=== PATIENT | male | born 1955 | race Caucasian/White ===

== ENCOUNTER 2020-03-11 16:25 | Emergency (ER) | payer BC ==
[~2020-03-11] VITALS: Ht 188 cm; Wt 105.9 kg
--- NOTE | 2020-03-11 16:58 | ECGEPIP ---
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
[2020-03-11] MEDS ORDERED: ALBUTEROL 90 MCG/ACT 8GM HFA INHALER INH ONE (17:00)
--- NOTE | 2020-03-11 17:15 | REP ---
Portable chest x-ray: Two views. History: Dyspnea and cough. Findings: Bipolar pacemaker is seen in the right heart via the left side. Monitoring electrodes are seen. Mild cardiomegaly is observed. Pulmonary vasculature is not increased. No infiltrate is seen. Pleural angles are sharp. Impression: Mild cardiomegaly with pacemaker. Prior sternotomy. No infiltrate seen. Electronically Signed by Dorian Cuevas MD 03/11/2020 05:06 P
[2020-03-11 17:27] LABS: VENOUS BASE EXCESS -3.4 (-2.0-2.0); VENOUS HCO3 22.1 MEQ/L (23.0-27.0); VENOUS O2 SATURATION 58.1 % (60.0-80.0); VENOUS PARTIAL PRESSURE CO2 41.7 mmHg (38.0-50.0); VENOUS PARTIAL PRESSURE O2 30.3 mmHg (30.0-50.0); VENOUS PH 7.342 UNITS (7.330-7.430); VENOUS STANDARD HCO3 20.9 MEQ/L; VENOUS TOTAL CO2 23.4 MEQ/L (24.0-28.0)
[2020-03-11 17:33] LABS: BASO % 0.1 % (0.0-1.0); EOS # 0.1 10^3/uL (0.0-0.5); EOS % 0.3 % (0.0-3.0); HEMATOCRIT 29.1 % (42.0-52.0); HEMOGLOBIN 9.6 g/dl (13.5-17.5); LYMPH # 1.4 10^3/uL (1.5-5.0); LYMPH % 9.7 % (24.0-44.0); MEAN CORPUSCULAR HEMOGLOBIN 29.4 pg (27.0-33.0); MEAN CORPUSCULAR VOLUME 89.3 fl (80.0-96.0); MONO # 0.9 10^3/uL (0.0-0.8); MONO % 6.4 % (0.0-5.0); NEUTROPHILS # 12.1 10^3/uL (1.5-8.5); NEUTROPHILS % 82.8 % (36.0-66.0); PLATELET COUNT, AUTOMATED 135 10^3/uL (150-450); RED BLOOD COUNT 3.26 10^6/uL (4.30-6.10); WHITE BLOOD COUNT 14.6 10^3/uL (4.0-10.0)
[2020-03-11] MEDS ORDERED: CARV12.5 PO (17:38)
[2020-03-11] MEDS ORDERED: DIGO0.123 PO (17:38)
[2020-03-11] MEDS ORDERED: AMIO0.1T PO (17:38)
[2020-03-11] MEDS ORDERED: ELIQ5TAB PO (17:38)
[2020-03-11] MEDS ORDERED: ATOR80TA59 PO (17:38)
[2020-03-11] MEDS ORDERED: ZYLO300T6 PO (17:38)
[2020-03-11] MEDS ORDERED: GLYB5TA PO (17:38)
[2020-03-11] MEDS ORDERED: EZET10TA21 PO (17:38)
[2020-03-11] MEDS ORDERED: JANU100T PO (17:38)
[2020-03-11] MEDS ORDERED: LANTINJ4 SC (17:38)
[2020-03-11] MEDS ORDERED: PROT20TA11 PO (17:38)
[2020-03-11 18:00] LABS: ALBUMIN 3.1 GM/DL (3.2-5.2); BILIRUBIN,DIRECT 0.3 MG/DL (0.0-0.2); BILIRUBIN,TOTAL 1.2 MG/DL (0.2-1.0); CALCIUM LEVEL 7.6 MG/DL (8.8-10.2); CREATININE FOR GFR 2.03 MG/DL (0.70-1.30); GLOMERULAR FILTRATION RATE 35.2 (>49); POTASSIUM SERUM 3.3 MEQ/L (3.5-5.1); THYROID STIMULATING HORMONE 0.642 uIU/ML (0.358-3.740); TOTAL PROTEIN 6.5 GM/DL (6.4-8.2)
[2020-03-11] MEDS ORDERED: NS 500 ML IV ONE (18:00)
[2020-03-11] MEDS ORDERED: POTASSIUM CHLORIDE 10 MEQ SR TABLET PO ONE (18:15)
[2020-03-11 18:21] VITALS: O2SAT 99
[2020-03-11] MEDS ORDERED: PROV108A INH (18:24)
[2020-03-11 18:31] LABS: DIGOXIN LEVEL 1.2 NG/ML (0.5-2.0)
[2020-03-11 18:45] VITALS: BP 171/77
== END 2020-03-11 19:07 | disposition home or self-care (01) ==
LOC: M ED 16:25
DX: N18.9 Chronic kidney disease, unspecified (principal); D64.9 Anemia, unspecified; J06.9 Acute upper respiratory infection, unspecified; I45.89 Other specified conduction disorders; Z95.0 Presence of cardiac pacemaker; I25.2 Old myocardial infarction; E11.9 Type 2 diabetes mellitus without complications; I11.0 Hypertensive heart disease with heart failure; Z95.5 Presence of coronary angioplasty implant and graft; Z72.0 Tobacco use; Z82.49 Family history of ischemic heart disease and other diseases of the circulatory system; Z83.3 Family history of diabetes mellitus; Z79.4 Long term (current) use of insulin; Z79.899 Other long term (current) drug therapy

== ENCOUNTER 2021-08-22 12:30 | Outpatient (CLI) | payer BC ==
[~2021-08-22] VITALS: Ht 188 cm; Wt 106.0 kg
[~2021-08-22 12:30] MED LIST: ACETAMINOPHEN TAB 650MG DOSE (2X325MG) PO ONE; ALBUTEROL 90 MCG/ACT 8GM HFA INHALER INH PRN; ALBUTEROL SULFATE 2.5 MG/0.5 ML INH NEB SOLN INH PRN; AMIO0.1T PO; ATOR80TA59 PO; CARV12.5 PO; CASIRIVIMAB (REGN10933) 600 MG, IMDEVIMAB (REGN10987) 600 MG in NS 250 ML IV ONE; DIGO0.123 PO; ELIQ5TAB PO; EPINEPHrine INJ 1 MG/ML 1ML AMP IM PRN; EZET10TA21 PO; GLYB5TAB6 PO; JANU100T PO; LANTINJ4 SC; NS 1,000 ML IV SCH; PROT20TA11 PO; PROV108A INH; ZYLO300T6 PO; diphenhydrAMINE 25MG CAP PO ONE; diphenhydrAMINE 50MG/ML VIAL (J1200) IV PRN; methylPREDNISolone 125MG 2ML VIAL IV PRN
[2021-08-22 12:51] VITALS: BP 125/63
[2021-08-22 13:21] VITALS: BP 100/51
[2021-08-22 13:51] VITALS: BP 119/54
[2021-08-22 14:51] VITALS: BP 118/58
[2021-08-22] MEDS ORDERED: PROAAER10 INH (23:16)
[2021-08-22] MEDS ORDERED: DIGO0.123 PO (23:16)
[2021-08-22] MEDS ORDERED: INSULADS SC (23:16)
[2021-08-22] MEDS ORDERED: CARV6.25 PO (23:16)
[2021-08-22] MEDS ORDERED: MIRA0.5T PO ×2 (23:16)
[2021-08-22] MEDS ORDERED: ENTR1TAB7 PO (23:16)
[2021-08-22] MEDS ORDERED: GABA-282 PO (23:16)
[2021-08-22] MEDS ORDERED: D31000TA2 PO (23:16)
[2021-08-22] MEDS ORDERED: EZET10TA21 PO (23:16)
[2021-08-22] MEDS ORDERED: AMIO200T49 PO (23:16)
[2021-08-22] MEDS ORDERED: ALLO300T2 PO (23:16)
[2021-08-22] MEDS ORDERED: ELIQ5TAB PO (23:16)
[2021-08-22] MEDS ORDERED: FURO40TA2 PO (23:16)
== END 2021-08-22 14:51 | disposition home or self-care (01) ==
LOC: M OPCLI4PR 12:30
PROVIDERS: ATTEND Neuromusculoskeletal Medicine & OMM
DX: U07.1 COVID-19 (principal)

== ENCOUNTER 2021-08-22 21:07 | Inpatient (IN) | payer BC ==
[~2021-08-22] VITALS: Ht 180.3 cm; Wt 100.6 kg
[2021-08-22] MEDS: allopurinoL 300 MG TAB PO SCH (21:00)
[2021-08-22] MEDS: EZETIMIBE 10MG TABLET (ZETIA) PO SCH (21:00)
[2021-08-22] MEDS: APIXABAN 5 MG TAB (ELIQUIS) PO SCH (21:00)
[2021-08-22] MEDS: CARVedilol 6.25 MG TAB PO SCH (21:00)
[2021-08-22] MEDS: DOCUSATE SODIUM 100MG CAPSULE PO SCH (21:00)
[2021-08-22] MEDS: GABAPENTIN 300 MG CAP PO SCH (21:00)
[2021-08-22] MEDS: PRAMIPEXOLE 0.25 MG TAB PO SCH (21:00)
[~2021-08-22 21:07] MED LIST changes: -ACETAMINOPHEN TAB 650MG DOSE (2X325MG) PO ONE; -ALBUTEROL 90 MCG/ACT 8GM HFA INHALER INH PRN; -ALBUTEROL SULFATE 2.5 MG/0.5 ML INH NEB SOLN INH PRN; -CASIRIVIMAB (REGN10933) 600 MG, IMDEVIMAB (REGN10987) 600 MG in NS 250 ML IV ONE; -EPINEPHrine INJ 1 MG/ML 1ML AMP IM PRN; -NS 1,000 ML IV SCH; -diphenhydrAMINE 25MG CAP PO ONE; -diphenhydrAMINE 50MG/ML VIAL (J1200) IV PRN; -methylPREDNISolone 125MG 2ML VIAL IV PRN
[2021-08-22] MEDS ORDERED: dexameTHASONE 20MG/5ML VIAL (J1100 PER 1MG) IV ONE (22:20)
[2021-08-22 22:22] LABS: ABG BASE EXCESS -9.8 (-2.0-2.0); ABG HCO3 17.4 MEQ/L (22.0-26.0); ABG O2 SATURATION 98.3 % (95.0-99.0); ABG PARTIAL PRESSURE CO2 42.8 mmHg (35.0-45.0); ABG PARTIAL PRESSURE O2 123.9 mmHg (75.0-100.0); ABG STANDARD HCO3 16.7 MEQ/L (22.0-26.0); ABG TOTAL CO2 18.7 MEQ/L (23.0-31.0)
[2021-08-22 22:28] LABS: ABG pH (ARTERIAL) 7.226 UNITS (7.350-7.450)
[2021-08-22 22:42] LABS: BASO % 0.2 % (0.0-1.0); EOS # 0.1 10^3/uL (0.0-0.5); EOS % 1.2 % (0.0-3.0); HEMATOCRIT 35.3 % (42.0-52.0); HEMOGLOBIN 10.8 g/dl (13.5-17.5); LYMPH # 1.6 10^3/uL (1.5-5.0); LYMPH % 14.1 % (24.0-44.0); MEAN CORPUSCULAR HEMOGLOBIN 29.2 pg (27.0-33.0); MEAN CORPUSCULAR HGB CONC 30.6 g/dl (32.0-36.5); MEAN CORPUSCULAR VOLUME 95.4 fl (80.0-96.0); MONO # 0.6 10^3/uL (0.0-0.8); MONO % 5.5 % (2.0-8.0); NEUTROPHILS # 8.6 10^3/uL (1.5-8.5); NEUTROPHILS % 78.5 % (36.0-66.0); PLATELET COUNT, AUTOMATED 217 10^3/uL (150-450)
[2021-08-22 22:45] LABS: INR 1.95; PROTHROMBIN TIME 22.6 SECONDS (12.7-14.5)
[2021-08-22] MEDS ORDERED: FUROSEMIDE 100MG/10ML VIAL (J1940) IV ONE (22:45)
[2021-08-22 22:46] LABS: PARTIAL THROMBOPLASTIN TIME 44.1 SECONDS (25.9-37.0)
[2021-08-22 22:48] LABS: D-DIMER QUANT 1676.31 ng/ml (<500)
[2021-08-22] MEDS: IPRATROPIUM 0.5MG/ALBUTEROL 2.5MG INH SOL UD 3ML (DUONEB) NEB SCH ×2 (22:58→23:03)
[2021-08-22 23:09] LABS: BILIRUBIN,TOTAL 0.6 MG/DL (0.2-1.0); C REACTIVE PROTEIN QUANTITATIV 2.61 MG/DL (0.00-0.30); CALCIUM LEVEL 7.4 MG/DL (8.8-10.2); CREATININE FOR GFR 2.45 MG/DL (0.70-1.30); GLOMERULAR FILTRATION RATE 28.2 (>49); POTASSIUM SERUM 4.8 MEQ/L (3.5-5.1); TOTAL PROTEIN 7.1 GM/DL (6.4-8.2)
[2021-08-22] MEDS ORDERED: D31000TA2 PO (23:16)
[2021-08-22] MEDS ORDERED: ENTR1TAB7 PO (23:16)
[2021-08-22] MEDS ORDERED: ALLO300T2 PO (23:16)
[2021-08-22] MEDS ORDERED: EZET10TA21 PO (23:16)
[2021-08-22] MEDS ORDERED: GABA-282 PO (23:16)
[2021-08-22] MEDS ORDERED: ELIQ5TAB PO (23:16)
[2021-08-22] MEDS ORDERED: AMIO200T3 PO (23:16)
[2021-08-22] MEDS ORDERED: DIGO0.123 PO (23:16)
[2021-08-22] MEDS ORDERED: FURO40TA2 PO (23:16)
[2021-08-22] MEDS ORDERED: CARV6.25 PO (23:16)
[2021-08-22] MEDS ORDERED: MIRA0.5T PO ×2 (23:16)
[2021-08-22] MEDS ORDERED: PROAAER10 INH (23:16)
[2021-08-22] MEDS ORDERED: INSULADS SC (23:16)
[2021-08-22] MEDS ORDERED: HOME MED LIST COMPLETE! XX SCH (23:20)
[2021-08-22 23:21] LABS: CK-MB VALUE MASS 1.3 NG/ML (<3.6); MB/CK RELATIVE INDEX 0.34 (< OR =4)
--- NOTE | 2021-08-22 23:43 | HPEPDOC ---
[facility] Medical History & Physical Date of Admission Aug 23, 2021 Date of Service: Aug 23, 2021 Attending Physician: MARTINEZ CRAIN MD History and Physical CHIEF COMPLAINT: Shortness of breath HISTORY OF PRESENT ILLNESS: Patient is a 66-year-old male with progressively worsening shortness of breath since 08/13. It eventually became bad enough that he felt like he could not move without becoming severely fatigued so he presented to [facility] urgent care on 08/18 where he was diagnosed with a CHF exacerbation with a BNP 18,000 per ED staff and was given some Lasix and discharged. At that time he was negative for Covid. He returned 2 days later however and was retested and found to be positive for Covid on 08/20. He was sent to a [facility] for outpatient monoclonal antibodies as he was on room air at that time. He received monoclonal antibody infusion today, 08/23, without event and per documentation was on room air at that time as well. After he returned home he again felt progressively worsening shortness of breath and ultimately called EMS and was instructed to continue on to [facility] for evaluation given that he just received the monoclonal treatment here. In the ED he was on nonrebreather and ultimately required both Vapotherm on top of nonrebreather in order to maintain saturations of 90%. Lab work demonstrated a BNP of 13,000 with a chest x-ray showing bilateral pneumonia and signs of fluid overload. He was given 80 mg of IV Lasix in the emergency department. He presently is feeling much better since being on the Vapotherm and admits to fevers and chills for the past week, fatigue, poor oral intake in the last 3 days, mild nausea, nonproductive cough, and the aforementioned shortness of breath. He otherwise denies any chest pain, pressure, lightheadedness, dizziness, abdominal pain, vomiting, constipation, diarrhea, swelling in his arms and legs. PAST MEDICAL HISTORY: Chronic A. fib CAD s/p CABG 07/2020 Type 2 diabetes ? Systolic CHF follows with [facility] cardiology states he has an AICD however this may just be a pacemaker. PAST SURGICAL HISTORY: Hernia repair CABG Pacemaker placement SOCIAL HISTORY: Former tobacco user, quit 02/2021 Denies alcohol use. Denies marijuana, heroin, cocaine, PCP, or other illicit drug use. Lives at home with and granddaughter No history of recent travel. No pets FAMILY HISTORY: Reviewed, noncontributory ALLERGIES: Please see below. REVIEW OF SYSTEMS: Constitutional: Denies fevers, chills, night sweats, or recent unexpected weight change HEENT: Denies headaches, head trauma, no visual changes or eye pain, denies nosebleeds or difficulty swallowing. Cardiovascular: Denies chest pain, palpitations, or orthopnea. Respiratory: As above GI: Denies vomiting, abdominal pain, diarrhea, or constipation : Denies pain with urination or frequency Musculoskeletal: Denies joint pain or swelling Neuro/psych: Denies muscle weakness or sensory loss Skin: Denies skin rashes HOME MEDICATIONS: Please see below. PHYSICAL EXAMINATION: VITAL SIGNS: See below GENERAL APPEARANCE: Well-appearing male sitting upright in bed in no acute distress speaking in complete sentences with Vapotherm applied. HEENT: NC, AT, EOMI, no scleral icterus, moist mucous membranes, no pharyngeal erythema. Neck: JVD up to the level of the angle of the mandible. No lymphadenopathy. CARDIOVASCULAR: RRR, normal S1-S2. No murmurs, gallops, rubs. LUNGS: Diminished breath sounds bilaterally with bibasilar crackles and inspiratory rhonchi. No wheezes appreciated. ABDOMEN: Soft, nontender, nondistended, bowel sounds present. Midline scar over periumbilical area. No hepatosplenomegaly. No masses or ecchymosis. No CVA tenderness. EXTREMITIES: DP/PT pulses +2/4. NO lower extremity edema bilaterally. NEUROLOGICAL: No focal or sensory deficits. CN II-XII grossly intact. PSYCHIATRIC: Normal mood and affect LABORATORY DATA: See below. IMAGIN08/22/2021 chest x-ray: "IMPRESSION: 1. Bilateral pneumonia with extensive airspace opacities in both lungs. 2. Cardiomegaly. " MICROBIOLOGY: Please see below. Assessment/Plan: Patient is a 66-year-old male with past medical history of CAD, CHF, A. fib who presents with an 11-day history of shortness of breath and found to be Covid positive on 08/18 and treated with monoclonal antibodies on 08/22, but ultimately found to be in acute hypoxemic respiratory failure secondary to CHF exacerbation, Covid pneumonia, and possible superimposed bacterial pneumonia. #. Acute hypoxemic respiratory failure Multifactorial, likely Covid pneumonia and possible superimposed bacterial pneumonia causing CHF exacerbation. Continue Vapotherm, may consider CPAP failing this or possibly BiPAP to help with CHF exacerbation. #. Acute on chronic systolic heart failure exacerbation Crackles with JVD and proBNP elevated from baseline at nearly 14,000, suspect systolic CHF i/s/o him being on Entresto and claiming he has an AICD (not seen on XR) S/p 80 mg IV Lasix in the emergency department, will see how he responds to this before considering further dosing Patient claims AICD and he is on Entresto which fits systolic heart failure picture, will order repeat echo as I imagine it will be clinically helpful for assessing volume status and possible worsening of heart failure. Holding Entresto, should restart medication following resolution of possible kidney injury and CHF exacerbation #. Covid pneumonia S/p monoclonal antibody tx on 08/22 Starting 5 days of remdesivir Starting dexamethasone Consider starting baricitinib after touching base with pulmonary/ID in the morning #. Superimposed bacterial pneumonia Procalcitonin ordered, starting patient empirically on Rocephin and doxycycline pending results of procalcitonin #. ? Acute on chronic renal failure Unknown baseline, patient states GFR baseline is about 20 which means he is likely already at baseline, will trend over subsequent days to get a better sense of this. In the event this is acute on chronic renal failure I suspect prerenal etiology in the setting of CHF exacerbation, diuresis should improve this We will obtain urinalysis, may consider checking urine lites Holding nephrotoxic agents #. Elevated troponin EKG without any signs of ischemia Repeat hs troponin elevated, algorithm demonstrating this indicates myocardial injury, suspect nonischemic myocardial injury versus type II HI. Suspect this is in the setting of heart failure with kidney disease. We will continue to trend and monitor for symptoms #. CAD s/p CABG Continue ezetimibe, Eliquis Unclear why he is not on a statin, may consider starting him on this during this admission, maybe myalgias? #. A. fib Continue Eliquis Continue amiodarone, digoxin, Coreg with holding parameters DVT prophylaxis: Continue Eliquis GI prophylaxis: Pantoprazole Disposition: Inpatient, pending clinical improvement Laboratory Data Labs 24H Laboratory Tests 2 08/22/21 22:09: Total Creatine Kinase 381H, Creatine Kinase MB 1.3, Creatine Kinase MB Relative Index 0.34, Troponin I High Sensitivity 106.0H 08/22/21 22:12: Blood Gas Bicarbonate Standard 16.7L, Arterial Blood pH 7.226*L, Arterial Blood Partial Pressure CO2 42.8, Arterial Blood Partial Pressure O2 123.9H, Arterial Blood Total CO2 18.7L, Arterial Blood HCO3 17.4L, Arterial Blood Base Excess - 9.8L, Arterial Blood Oxygen Saturation 98.3 08/22/21 22:16: Immature Granulocyte % (Auto) 0.5, Neutrophils (%) (Auto) 78.5H, Lymphocytes (%) (Auto) 14.1L, Monocytes (%) (Auto) 5.5, Eosinophils (%) (Auto) 1.2, Basophils (%) (Auto) 0.2, Neutrophils # (Auto) 8.6H, Lymphocytes # (Auto) 1.6, Monocytes # (Auto) 0.6, Eosinophils # (Auto) 0.1, Basophils # (Auto) 0.0, Nucleated Red Blood Cells % (auto) 0.0, Prothrombin Time 22.6H, Prothromb Time International Ratio 1.95, Activated Partial Thromboplast Time 44.1H, D-Dimer, Quantitative 1676.31H, Anion Gap 11, Glomerular Filtration Rate 28.2L, Lactic Acid Level 1.5, Calcium Level 7.4L, Ferritin 99, Total Bilirubin 0.6, Aspartate Amino Transf (AST/SGOT) 30, Alanine Aminotransferase (ALT/SGPT) 24, Alkaline Phosphatase 79, Lactate Dehydrogenase 236, C-Reactive Protein, Quantitative 2.61H, PW-Byq-I-Type Natriuretic Peptide 28135A, Total Protein 7.1, Albumin 3.0L, Albumin/Globulin Ratio 0.7 08/22/21 23:03: POC Troponin I (Misc) 0.13H CBC/BMP Laboratory Tests 08/22/21 22:16 Microbiology Microbiology 08/22/21 Blood Culture, Received Pending Home Medications Scheduled Amiodarone HCl (Amiodarone HCl) 200 Mg Tablet, 200 MG PO DAILY Apixaban (Eliquis) 5 Mg Tablet, 5 MG PO BID Carvedilol (Carvedilol) 6.25 Mg Tablet, 6.25 MG PO BID Cefdinir (Cefdinir) 300 Mg Capsule, 1 CAP PO BID Cholecalciferol (Vitamin D3) (Vitamin D3) 1,000 Unit Tablet, 1,000 UNITS PO DAILY Digoxin (Digoxin) 125 Mcg Tablet, 125 MCG PO 3XW FRIDAY, FRIDAY AND FRIDAY Doxycycline Hyclate (Doxycycline Hyclate) 100 Mg Tablet, 1 TAB PO BID Ezetimibe (Ezetimibe) 10 Mg Tablet, 10 MG PO QHS Furosemide (Lasix) 80 Mg Tablet, 1 TAB PO DAILY Gabapentin (Gabapentin) 300 Mg Capsule, 300 MG PO QHS Insulin Glargine (Lantus) 100 Unit/1 Ml Vial, 1 DOSE SC BID PER SLIDING SCALE Pantoprazole Sodium (Pantoprazole Sodium) 40 Mg Tablet.dr, 1 TAB PO DAILY Pramipexole Di-HCl (Mirapex) 0.5 Mg Tablet, 1 MG PO DAILY Pramipexole Di-HCl (Mirapex) 0.5 Mg Tablet, 0.5 MG PO QHS Prednisone (Prednisone) 10 Mg Tablet, 10 MG PO TAPER Take 4 tabs daily x 3 days, then 3 tabs daily x 3 days, then 2 tabs daily x 3 days, then 1 tab daily x 3 days and stop allopurinoL (allopurinoL) 300 Mg Tablet, 300 MG PO QHS Scheduled PRN Albuterol Sulfate (Proair Hfa) 8.5 Gm Hfa.aer.ad, 2 PUFF INH Q4H PRN for SHORTNESS OF BREATH Allergies Coded Allergies: No Known Allergies (Unverified , 03/11/20) GME ATTESTATION GME ATTESTATION My faculty preceptor for this patient encounter was physically present during the encounter and was fully available. All aspects of the patient interview, examination, medical decision making process, and medical care plan development were reviewed and approved by the faculty preceptor. The faculty preceptor is aware and concurs with the plan as stated in the body of this note and will attest to such by his/her cosignature. ATTENDING NOTE I, Darrion Crain, have independently examined this patient and performed my own physical exam, as well as reviewed the documentation and addend when necessary. I have discussed in detail with the resident / student the findings and plan of treatment as documented by the resident / student. I agree with their findings and treatment plan except for any changes as outlined below. LATOYA WALSH DO Aug 22, 2021 23:43 MARTINEZ CRAIN MD Aug 26, 2021 04:50
[2021-08-23] VITALS (12 sets, daily range): BP systolic 108–135; BP diastolic 55–82; O2SAT 94–95
[2021-08-23 00:05] LABS: ABG BASE EXCESS -7.6 (-2.0-2.0); ABG HCO3 16.2 MEQ/L (22.0-26.0); ABG O2 SATURATION 95.8 % (95.0-99.0); ABG PARTIAL PRESSURE CO2 27.4 mmHg (35.0-45.0); ABG PARTIAL PRESSURE O2 78.9 mmHg (75.0-100.0); ABG STANDARD HCO3 18.3 MEQ/L (22.0-26.0); ABG TOTAL CO2 17.1 MEQ/L (23.0-31.0)
--- OUTSIDE RECORDS SUMMARY | 2021-08-23 00:08 | CCD | Continuity of Care Document ---
Author Author Jamar ABDUL MD Organization Unknown Address [address] [facility] [address] [place] [address] Phone [phone] Care Team Providers Care Cytopathology Technologist Name Role Phone Body, Isabel NP AUTM [phone] Marin Montana MD AUTM [phone] Juan Miguel Abdul MD AUTM [phone] Problems Active Problems Provider Date Automatic implantable cardiac defibrillator in situ Juan Miguel Abdul MD Onset: 08/05/2012 Coronary arteriosclerosis Juan Miguel Abdul MD Onset: 010 Type 2 diabetes mellitus Juan Miguel Abdul MD Onset: 03/09/20 10 Hyperlipidemia Juan Miguel Abdul MD Onset: 03/09/2010 Essential hypertension Juan Miguel Abdul MD Onset: 03/09/2010 Social History Type Date Description Comments Sex Unknown ETOH Use Denies alcohol use Tobacco Use Reviewed: 03/28/21 Patient is a current smoker, smokes every day 1/2 PACK PER DAY Smoking Status Reviewed: 03/28/21 Patient is a current smoker, smokes every day 1/2 PACK PER DAY Allergies and adverse reactions Description No Known Drug Allergies Medications Active Medications SIG Qnty Indications Ordering Provide r Date Januvia 50mg Tablets 1 by mouth every day 90tabs Juan Miguel Abdul MD 04/18/2021 Lantus 100Unit/ML Solution inject 40 units into the skin twice a day 20ml Juan Miguel Abdul MD Digox 125mcg Tablets 1 by mouth MWF 30tabs Camden Garcia NP 03/28/2021 Entresto 49-51mg Tablets 1 tab by mouth twice a day 180tabs Camden Garcia NP 03/28/2021 Ativan 1mg Tablets 1 tab by mouth two times daily needed for anxiety 60tabs Juan Miguel miller MD 05/07/2018 Eliquis 5mg Tablets 1 by mouth twice a day 180tabs Juan Miguel Abdul MD 04/01/2017 Carvedilol 6.25mg Tablets 1 by mouth twice a day Unknown Furosemide 40mg Tablets 1.5 tab (60mg) by mouth every day 90tabs Juan Miguel Abdul MD Acetaminophen 325mg Tablets take 3 tabs every 8 hours needed Unknown Amiodarone HCL 200mg Tablets 1 by mouth every other day (Alternates with 100 mg dose) Un known Atorvastatin Calcium 20mg Tablets 1 by mouth every day Unknown Gabapentin 300mg Capsules 1 by mouth daily Unknown Docusate Sodium 100mg Capsules 1 by mouth twice a day Unknown Ferrous Sulfate 324(65Fe) mg Table ts DR 1 by mouth twice a day Unknown Nitroglycerin 0.4mg Tablets Sub Dissolve One Tablet Under The Tongue May Repeat Every 5 Minutes. Maxim Unknown Vitamin D (Cholecalciferol) 1000Unit Tablets 1 by mouth every day Unknown 000 Allopurinol 300mg Tablets 1 by mouth every day 30tabs Unknown Mirapex 0.5mg Tablets 1 tab by mouth am and 2 by mouth pm 30tabs Unknown Zetia 10mg Tablets 1 b y mouth every day 90tabs Unknown History Medications Glipizide 5mg Tablets take 1 tablet prior to breakfast 90tabs Juan Miguel Abdul MD 04/18/2021 - 05/30/2021 Spironolactone 25mg Tablets 1 by mouth every day 30tabs Camden Garcia NP 03/28/2021 - 03/28/2021 Lasix 40mg Tablets 1 by mouth every day until edema resolves 14tabs Renée Caruso NP 03/23/20 - 03/27/2021 Digox 125mcg Tablets Take 4 tabs today and tomorrow, 1 tab Friday, skip Friday, then 1 tab PO daily Mon thru Fri 30tabs Juan Miguel Abdul MD 02/21/2021 - 03/23/2021 Immunizations CPT Code Status Date Vaccine Lot # [id number] Given 12/19/2020 Moderna Covid-19 Sars-Cov-2, mRNA, LNP-S, PF, 100 mcg/ 0.5 mL 09134 Given 11/21/2020 Moderna Covid-19 Sars-Cov-2, mRNA, LNP-S, PF, 100 mcg/ 0.5 mL Vital Signs Date Vital Result Comment 07/02/2021 3:14pm Height 74.00 inches 6'2" Weight 232.00 lb BMI (Body Mass Index) 29.8 kg/m2 BP Systolic 158 mmHg BP Diastolic 74 mmHg Heart Rate 87 /min Body Temperature 98.4 F Body Temperature 36.9 C O2 % BldC Oximetry 99 % 06/29/2021 2:47pm Height 74.00 inches 6'2" Weight 232.25 lb BMI (Body Mass Index) 29.8 kg/m2 BP Systolic Left Arm 140 mmHg BP Diastolic Left Arm 70 mmHg Heart Rate 68 /min Results Test Acquired Date Facility Test Result H/L Range Note Cbcadp 06/29/2021 [facility] [address] [place] [address] [phone] WBC. 6.68 x10E3/uL 4.2-12.0 1 RBC 3.63 x10E6/uL Low 4.4-6.0 HGB 10.8 g/dL Low 13.8-18.0 HCT 34.4 % Low 39-52 MCV 94.9 fL 80-98 MCH 29.8 pg 27-33 MCHC 31.4 g/dL Low 32-36 RDW 16.4 % High 11.2-15.2 PLT 155 x10E3/uL 135-420 MPV 8.0 fL 7.0-12.3 % Keesha 82.3 % High 41.0-80.0 %Lym 12.3 % 10.0-45.2 %Glacier 3.3 % 2.0-13.0 %Eos 2.0 % 0.0-8.0 %Baso 0.1 % 0.0-3.0 Neut 5.5 x10E3/uL 2.0-8.1 Lymp 0.8 x10E3/uL 0.6-3.1 Glacier 0.2 x10E3/uL 0.0-1.0 Eos 0.1 x10E3/uL 0.0-0.6 Baso 0.0 x10E3/uL 0.0-0.2 BMP-Male 06/29/2021 [facility] [place] [address] [phone] Glucose 293 mg/dL High 74-106 2 BUN 54 mg/dL 6-20 3 Creatinine 1.9 mg/dL High 0.5-1.3 Sodium 138 mmol/L 136-145 Potassium 3.8 mmol/L 3.5-5.3 Chloride 109 mmol/L High 98-107 Co2 19 mEq/L Low 20-31 Anion Gap 10 mmol/L 7-16 eGFR-male 36 mL/m/1.73m - eGFR-Aa male 43 mL/m/1.73m - 4 Calcium 8.7 mg/dL Low 8.9-10.5 Laboratory test finding 06/29/2021 [facility] [place] [address] [phone] Magnesium 1.7 mg/dL 1.7-2.4 Troponin, Ultra 0.020 ng/mL 0-0.047 BNP 705.8 pg/mL High 0-100 Venipuncture DONE - Laboratory test finding 06/11/2021 [facility] [place] [address] [phone] Sars-Cov-2 Rna <pending> Laboratory test finding 03/28/2021 [facility] [place] [address] [phone] BNP 1170.4 pg/mL High 0-100 5 Venipuncture DONE - 6 CMP-Male W/LDH,Phosphorus,Uric 02/21/2021 [facility] [place] [address] [phone] LDH 252 U/L High 120-246 Phosphorus 4.1 mg/dL 2.7-4.5 7 Uric Acid 8.5 mg/dL High 2.6-7.2 CMP-Male 02/21/2021 [facility] [address] [place] [address] [phone] Glucose 238 mg/dL High 74-106 8 BUN 54 mg/dL 6-20 9 Creatinine 2.1 mg/dL High 0.5-1.3 Sodium 142 mmol/L 136-145 10 Potassium 4.7 mmol/L 3.5-5.3 Chloride 104 mmol/L 98-107 Co2 25 mEq/L 20-31 Anion Gap 13 mmol/L 7-16 eGFR-male 32 mL/m/1.73m - eGFR-Aa male 38 mL/m/1.73m - 11 Alk. Phos. 96 U/L 46-116 Alt 53 U/L High 4-36 12 Ast 37 U/L High 8-33 Total Bilirubin 0.8 mg/dL 0.3-1.2 Total Protein 7.5 g/dL 6.4-8.3 13 Albumin 4.4 g/dL 3.6-5.1 A/G Ratio 1.4 Ratio 1.0-2.0 Globulin 3.1 g/dL 1.9-3.7 Calcium 9.6 mg/dL 8.9-10.5 Cbcadp 02/21/2021 [facility] [address] [place] [address] [phone] WBC. 6.06 x10E3/uL 4.2-12.0 RBC 3.93 x10E6/uL Low 4.4-6.0 HGB 12.1 g/dL Low 13.8-18.0 HCT 39.5 % 39-52 MCV 100.5 fL High 80-98 MCH 30.8 pg 27-33 MCHC 30.7 g/dL Low 32-36 RDW 18.2 % High 11.2-15.2 PLT 157 x10E3/uL 135-420 MPV 8.5 fL 7.0-12.3 % Keesha 66.8 % 41.0-80.0 %Lym 23.1 % 10.0-45.2 %Glacier 7.2 % 2.0-13.0 %Eos 2.8 % 0.0-8.0 %Baso 0.2 % 0.0-3.0 Neut 4.1 x10E3/uL 2.0-8.1 Lymp 1.4 x10E3/uL 0.6-3.1 Glacier 0.4 x10E3/uL 0.0-1.0 Eos 0.2 x10E3/uL 0.0-0.6 Baso 0.0 x10E3/uL 0.0-0.2 Laboratory test finding 02/21/2021 [facility] [address] [place] [address] [phone] TSH3 3.622 mIU/ml 0.350-5.500 Free T4 1.66 ng/dL 0.89-1.80 BNP 2118.0 pg/mL 0-100 14 Venipuncture DONE - 1 Labprint and transmitted 3:4 4pm 06/29/2021 ak 2 [place] (ADA) Recommended Range is 65-99 mg/dL 3 Results Confirmed by Repeat Analysis. Labprint and transmitted 1543 merrick 06/29/2021 4 Normal Kidney Function or Mi ld Disease GFR >59 mL/min/1.73m2 Chronic Kidney Disease GFR 15-59 mL/min/1.73m2 Renal Failure GFR <15 mL/min/1.73m2 5 Labprint and transmitted at 1217 03/28/21 kk 6 STAT Draw Completed at 1120. SST Drawn as Extra. 7 02/28/2020-According to [employer] - Blood samples from some patients with monoclonal gammopathies may produce falsely elevated phosphorous results with this assay. 8 [place] [employer] (ADA) Recommended Range is 65-99 mg/dL 9 Results Confirmed by Repeat Analysis. Results faxed at 1037 02/22/21 kk 10 Results Confirmed by Repeat Analysis. 11 Normal Kidney Function or Mi ld Disease GFR >59 mL/min/1.73m2 Chronic Kidney Disease GFR 15-59 mL/min/1.73m2 Renal Failure GFR <15 mL/min/1.73m2 12 Effective 03/22/2017: [employer] has indicated interference with the drugs sulfasalazine and sulfapyridine. They suggest collection should occur prior to drug administration due to falsely depressed results. 13 Results may reflect a potent ial interference in Total Protein results in patients receiving dextran as blood volume expanders. 14 Results Confirmed by Repeat Analysis. Results faxed at 1039 02/22/21 kk called to [facility] at 1039 6/3/21 kk Procedures Date Code Description Status 07/02/2021 20066 Office/Outpatient Established SF MDM 10-19 Min Completed 06/29/2021 51582 Office/Outpatient Established Mo d MDM 30-39 Min Completed 06/15/2021 88374 I & D Hematoma Completed 05/30/2021 44002 Office/Outpatient Established Mo d MDM 30-39 Min Completed 05/30/2021 74284 Electrocardiogram Complete Compl eted 04/18/2021 71532 TCM-Mod Completed 04/14/2021 14974 Hospital Subsequent Care Level 2 Completed 04/13/2021 56773 Hospital Subsequent Care Level 2 Completed 04/13/2021 88903 Electrocardiogram Interpretation & Report Only Completed 04/13/2021 93955 Cardioversion, Elective, Externa l Completed 04/12/2021 00022 Hospital Initial Care Level 1 Co mpleted 03/28/2021 83760 TCM-Mod Completed 03/28/2021 87495 Single Lead Implant Cardioverter -Defibrillator Completed 03/19/2021 74360 Hospital Subsequent Care Level 2 Completed 03/18/2021 29378 Hospital Subsequent Care Level 2 Completed 03/16/2021 81191 Hospital Initial Care Level 1 Co mpleted 03/16/2021 44775 Electrocardiogram Interpretation & Report Only Completed 03/13/2021 87348 Implant For Incisional/Ventral H ernia Repair Completed 03/13/2021 74387 Repair Hernia Incisional/Ventral Recurrent, Reducible Completed 03/13/2021 32384 Remove Support Implant Deep Comp leted 02/21/2021 65458 Office/Outpatient Established Mo d MDM 30-39 Min Completed 02/21/2021 25475 Electrocardiogram Complete Compl eted Medical Devices Description No Information Available Encounters Type Date Location Provider Dx Diagnosis Office Visit 07/02/2021 3:00p [facility] Magy Mendosa NP L76.34 Postproc seroma of skin, subcu following other procedure Office Visit 06/29/2021 2:45p [facility] [place] Renée interiano NP I25.10 Athscl heart disease of [place] coronary artery w/o ang pctrs Z95.810 Presence of automatic (impla ntable) cardiac defibrillator I25.5 Ischemic cardiomyopathy I50.22 Chronic systolic (congestive ) heart failure I49.01 Ventricular fibrillation R27.0 Ataxia, unspecified Z82.49 Family hx of ischem heart di s and oth dis of the [facility] sys Office Visit 06/25/2021 10:00a [facility] Surgical Services Katelin mckeon, CERTIFIED MEDICAL CODING SPECIALIST Z48.817 Encntr for surgical aftcr fol surgery on the skin, subcu L76.34 Postproc seroma of skin, sub cu following other procedure Office Visit 05/30/2021 11:15a [facility] Surgical Services Johnathan Cornejo L76.34 Postproc seroma of skin, subcu following other procedure K43.2 Incisional hernia without ob struction or gangrene Z48.815 Encntr for surgical aftcr fo llowing surgery on the dgv sys Office Visit 05/30/2021 9:45a [facility] Cardiology AT [facility] Juan Miguel Abdul MD R07.89 Other chest pain Z95.810 Presence of automatic (impla ntable) cardiac defibrillator 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 I50.32 Chronic diastolic (congestiv e) heart failure I48.0 Paroxysmal atrial fibrillati on I36.1 Nonrheumatic tricuspid (valv e) insufficiency Z79.01 alf (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 a 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 E11.9 Type 2 diabetes mellitus wit hout complications I11.0 Hypertensive heart disease w ith heart failure Z79.4 terminal block assembler (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 i nsulin Office Visit 04/30/2021 10:30a [facility] Surgical Services Katelin mckeon, CERTIFIED MEDICAL CODING SPECIALIST Z48.815 Encntr for surgical aftcr following surg terri on the [facility] sys L76.34 Postproc seroma of skin, sub cu following other procedure K43.2 Incisional hernia without ob struction or gangrene Office Visit 04/18/2021 9:30a [facility] Cardiology AT [facility] Juan Miguel Abdul MD Z95.810 Presence of automatic (impla ntable) cardiac defibrillator I50.23 Acute on chronic systolic (c ongestive) heart failure I25.5 Ischemic cardiomyopathy I34.0 Nonrheumatic mitral (valve) insufficiency E11.9 Type 2 diabetes mellitus wit hout complications Office Visit 04/18/2021 2:00p [facility] Surgical Services Katelin mckeon NP L76.34 Postproc seroma of skin, subcu following other procedure K43.2 Incisional hernia without ob struction or gangrene Z48.815 Encntr for surgical aftcr fo llowing surgery on the [facility] sys Z82.49 Family hx of ischem heart di s and oth dis of the [facility] sys Office Visit 04/14/2021 3:08a [facility] Surgical Services Pako brewster MD L76.34 Postproc seroma of skin, subcu following other procedure Office Visit 04/14/2021 3:11a [facility] Cardiology [facility] Pan jara MD I50.22 Chronic systolic (congestive) heart fail ure I48.92 Unspecified atrial flutter 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 N18.9 Chronic kidney disease, unsp ecified L76.34 Postproc seroma of skin, sub cu following other procedure 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 Office Visit 04/13/2021 10:12a [facility] Cardiology [facility] Juan Miguel murray MD I48.92 Unspecified atrial flutter I50.9 Heart failure, unspecified N18.9 Chronic kidney disease, unsp ecified L76.34 Postproc seroma of skin, sub cu following other procedure Office Visit 04/12/2021 9:24a [facility] Cardiology [facility] Juan Miguel murray MD I50.9 Heart failure, unspecified I48.91 Unspecified atrial fibrillat ion I44.0 Atrioventricular block, firs t degree R10.9 Unspecified abdominal pain Office Visit 04/03/2021 11:00a [facility] Surgical Services Katelin Zaragoza NP K43.2 Incisional hernia without obstruction or gangrene Z48.815 Encntr for surgical aftcr fo llowing surgery on the [facility] sys Office Visit 03/28/2021 2:30p [facility] Surgical Services Katelin Zaragoza NP K43.2 Incisional hernia without obstruction or gangrene Z48.815 Encntr for surgical aftcr fo llowing surgery on the [facility] sys Office Visit 03/28/2021 10:15a [facility] Cardiology AT [place] Vince Garcia, ZULMA I25.10 Athscl heart disease of [place] coronary artery w/o ang pctrs I48.91 Unspecified atrial fibrillat ion Z95.810 Presence of automatic (impla ntable) cardiac defibrillator I42.0 Dilated cardiomyopathy I50.20 Unspecified systolic (conges tive) heart failure N17.9 Acute kidney failure, unspec ified Z82.49 Family hx of ischem heart di s and oth dis of the circ sys Z87.891 Personal history of nicotine dependence Z79.01 alf (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 a 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 Office Visit 03/21/2021 3:33a [facility] Surgical Services Johnathan Cornejo Office Visit 03/20/2021 2:43a [facility] Surgical Services Johnathan Cornejo Office Visit 03/19/2021 2:40a [facility] Surgical Services Johnathan Cornejo Office Visit 03/19/2021 2:36a [facility] Cardiology [facility] Ramón jurado MD I25.10 Athscl heart disease of [place] coronary artery w/o ang pctrs I50.20 Unspecified systolic (conges tive) heart failure I48.91 Unspecified atrial fibrillat ion N17.9 Acute kidney failure, unspec ified K91.89 Oth postprocedural complicat ions and disorders of dgstv sys N18.9 Chronic kidney disease, unsp ecified 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 Z98.61 Coronary angioplasty status Z86.79 Personal history of other di seases of the circulatory system Z95.810 Presence of automatic (impla ntable) cardiac defibrillator Office Visit 03/18/2021 2:26a [facility] Cardiology [facility] Johnathan Corcoran I48.91 Unspecified atrial fibrillation I42.0 Dilated cardiomyopathy Z79.01 terminal block assembler (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 a 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 Office Visit 03/17/2021 2:29a [facility] Surgical Services Kriss Coon MD Office Visit 03/16/2021 2:32a [facility] Cardiology [facility] Ramón Hong MD N17.9 Acute kidney failure, unspecified R34 Anuria and oliguria F17.200 Nicotine dependence, unspeci fied, uncomplicated Office Visit 03/16/2021 2:30a [facility] Johnathan Cornejo Office Visit 03/15/2021 2:33a [facility] Kraig garsia MD Office Visit 03/14/2021 2:41a [facility] Johnathan Cornejo Office Visit 02/21/2021 10:30a [facility] AT [facility] Juan Miguel Abdul MD I47.1 Supraventricular tachycardia I25.5 Ischemic cardiomyopathy I48.91 Unspecified atrial fibrillat ion R06.02 Shortness of breath Assessments Date Code Description Provider 07/02/2021 L76.34 Postoperative seroma Magy sharma, CERTIFIED MEDICAL CODING SPECIALIST 06/29/2021 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[place] coronary artery without angina pectoris Renée Caruso NP 06/29/2021 Z95.810 Presence of automatic (implantab le) cardiac defibrillator Renée Caruso NP 06/29/2021 I25.5 Ischemic cardiomyopathy Renée chaudhry NP 06/29/2021 I50.32 Chronic diastolic (congestive) h eart failure [facility] 06/29/2021 I50.22 Chronic systolic (congestive) he art failure Renée Caruso NP 06/29/2021 I49.01 Ventricular fibrillation Renée jesus NP 06/29/2021 R27.0 Ataxia, unspecified Renée wallace NP 06/29/2021 R06.02 Shortness of breath [facility] al Labs 06/29/2021 Z82.49 Family history of is chemic heart disease and other diseases of the circulatory system Renée Caruso NP 06/29/2021 R07.89 Other chest pain [facility] 06/29/2021 I50.32 Chronic diastolic (congestive) h eart failure [facility] 06/29/2021 R06.02 Shortness of breath [facility] Labs 06/29/2021 R07.89 Other chest pain [facility] 06/25/2021 Z48.817 Encounter for surgic al aftercare following surgery on the skin and subcutaneous tissue Katelin Zaragoza NP 06/25/2021 L76.34 Postoperative seroma Katelin stover NP 06/15/2021 L76.34 Postprocedural serom a of skin and subcutaneous tissue following other procedure Jakub Padilla MD 06/15/2021 Z79.899 Other long term care social worker (current) drug t herapy Jakub Padilla MD 06/15/2021 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[place] coronary artery without angina pectoris Jakub Padilla MD 06/15/2021 E11.9 Type 2 diabetes mellitus without complications Jakub Padilla MD 06/15/2021 I10 Essential (primary) hypertension Jakub Padilla MD 06/15/2021 Z79.84 alf (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 oral hypoglycemic drugs Jakub Padilla MD 05/30/2021 R07.89 Other chest pain Juan Miguel Abdul MD 05/30/2021 L76.34 Postoperative seroma Jakub alcantar MD 05/30/2021 Z95.810 Presence of automatic (implantab le) cardiac defibrillator Juan Miguel Abdul MD 05/30/2021 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[place] coronary artery without angina pectoris Juan Miguel Abdul MD 05/30/2021 K43.2 Incisional hernia without obstru ction or gangrene Jakub Padilla MD 05/30/2021 I50.32 Chronic diastolic (congestive) h eart failure Juan Miguel Abdul MD 05/30/2021 I48.0 Paroxysmal atrial fibrillation W nitesh Abdul MD 05/30/2021 I36.1 Nonrheumatic tricuspid (valve) i nsufficiency Juan Miguel Abdul MD 05/30/2021 Z48.815 Encounter for surgic al aftercare following surgery on the digestive system Jakub Padilla MD 05/30/2021 Z79.01 alf (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 antic oagulants Juan Miguel Abdul MD 05/30/2021 E11.9 Type 2 diabetes mellitus without complications Juan Miguel Abdul MD 05/30/2021 I11.0 Hypertensive heart disease with heart failure Juan Miguel Abdul MD 05/30/2021 Z79.4 alf (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 insul in Juan Miguel Abdul MD 04/30/2021 Z48.815 Encounter for surgic al aftercare following surgery on the digestive system Katelin Zaragoza NP 04/30/2021 L76.34 Postprocedural serom a of skin and subcutaneous tissue following other procedure Katelin Zaragoza NP 04/30/2021 K43.2 Incisional hernia without obstru ction or gangrene Katelin Zaragoza NP 04/18/2021 L76.34 Postprocedural serom a of skin and subcutaneous tissue following other procedure Katelin Zaragoza NP 04/18/2021 K43.2 Incisional hernia without obstru ction or gangrene Katelin Zaragoza NP 04/18/2021 Z48.815 Encounter for surgic al aftercare following surgery on the digestive system Katelin Zaragoza NP 04/18/2021 Z95.810 Presence of automatic (implantab le) cardiac defibrillator Juan Miguel Abdul MD 04/18/2021 Z82.49 Family history of is chemic heart disease and other diseases of the circulatory system Katelin Zaragoza NP 04/18/2021 I50.23 Acute on chronic systolic (conge stive) heart failure Juan Miguel Abdul MD 04/18/2021 I25.5 Ischemic cardiomyopathy Juan Miguel Abdul MD 04/18/2021 I34.0 Nonrheumatic mitral (valve) insu fficiency Juan Miguel Abdul MD 04/18/2021 E11.9 Type 2 diabetes mellitus without complications Juan Miguel Abdul MD 04/14/2021 L76.34 Postprocedural serom a of skin and subcutaneous tissue following other procedure Pako Masterson MD 04/14/2021 I50.22 Chronic systolic (congestive) he art failure Pan Ambrose MD 04/14/2021 I48.92 Unspecified atrial flutter Roz Ambrose MD 04/14/2021 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[place] coronary artery without angina pectoris Pan Ambrose MD 04/14/2021 N18.9 Chronic kidney disease, unspecif ied Pan Ambrose MD 04/14/2021 L76.34 Postprocedural serom a of skin and subcutaneous tissue following other procedure Pan Ambrose MD 04/14/2021 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 graft Pan Ambrose MD 04/13/2021 I48.92 Unspecified atrial flutter Balwinder Abdul MD 04/13/2021 I50.9 Heart failure, unspecified Balwinder Abdul MD 04/13/2021 N18.9 Chronic kidney disease, unspecif ied Juan Miguel Abdul MD 04/13/2021 L76.34 Postprocedural serom a of skin and subcutaneous tissue following other procedure Juan Miguel Abdul MD 04/13/2021 I50.23 Acute on chronic systolic (conge stive) heart failure Pan Ambrose MD 04/13/2021 I13.0 Hypertensive heart a nd chronic kidney disease with heart failure and stage 1 through stage 4 chronic kidney disease, or unspecified chronic kidney disease Pan Ambrose MD 04/13/2021 I48.92 Unspecified atrial flutter Roz Ambrose MD 04/13/2021 I73.9 Peripheral vascular disease, uns pecified Pan Ambrose MD 04/13/2021 N18.30 Chronic kidney disease, stage 3 unspecified Pan Ambrose MD 04/13/2021 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 graft Pan Ambrose MD 04/13/2021 Z20.822 Contact with and (suspected) exp osure to Covid-19 Pan Ambrose MD 04/12/2021 I50.9 Heart failure, unspecified Balwinder Abdul MD 04/12/2021 I48.91 Unspecified atrial fibrillation Juan Miguel Abdul MD 04/12/2021 I44.0 Atrioventricular block, first de gree Juan Miguel Abdul MD 04/12/2021 R10.9 Unspecified abdominal pain Balwinder Abdul MD 04/03/2021 K43.2 Incisional hernia without obstru ction or gangrene Katelin Zaragoza NP 04/03/2021 Z48.815 Encounter for surgic al aftercare following surgery on the digestive system Katelin Zaragoza NP 03/28/2021 K43.2 Incisional hernia without obstru ction or gangrene Katelin Zaragoza ZULMA 03/28/2021 Z48.815 Encounter for surgic al aftercare following surgery on the digestive system Katelin Zaragoza NP 03/28/2021 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[place] coronary artery without angina pectoris Camden Garcia NP 03/28/2021 I48.91 Unspecified atrial fibrillation Camden Garcia NP 03/28/2021 Z95.810 Presence of automatic (implantab le) cardiac defibrillator Camden Garcia NP 03/28/2021 I42.0 Dilated cardiomyopathy [facility] 03/28/2021 I42.0 Dilated cardiomyopathy Vince Garcia NP 03/28/2021 I50.20 Unspecified systolic (congestive ) heart failure Camden Garcia NP 03/28/2021 N17.9 Acute kidney failure, unspecifie d Camden Garcia NP 03/28/2021 Z82.49 Family history of is chemic heart disease and other diseases of the circulatory system Camden Garcia NP 03/28/2021 Z95.810 Presence of automatic (implantab le) cardiac defibrillator [facility] 03/28/2021 Z87.891 Personal history of nicotine dep endence Camden Garcia NP 03/28/2021 Z79.01 alf (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 antic oagulants Camden Garcia NP 03/28/2021 I42.0 Dilated cardiomyopathy [facility] 03/28/2021 I50.20 Unspecified [facility]congestive [facility] 03/28/2021 Z95.810 Presence of automatic (implantab le) cardiac defibrillator [facility] 03/28/2021 I50.20 Unspecified systolic (congestive ) heart failure [facility] 03/28/2021 Z95.810 Presence of automatic (implantab le) cardiac defibrillator [facility] 03/28/2021 I42.0 Dilated cardiomyopathy [facility] 03/19/2021 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[place] coronary artery without angina pectoris Ramón Hong MD 03/19/2021 I50.20 Unspecified systolic (congestive ) heart failure Ramón Hong MD 03/19/2021 I48.91 Unspecified atrial fibrillation Ramón Hong MD 03/19/2021 N17.9 Acute kidney failure, unspecifie d Ramón Hong MD 03/19/2021 K91.89 Other postprocedural complications and disorders of digestive system Ramón Hong MD 03/19/2021 N18.9 Chronic kidney disease, unspecif ied Ramón Hong MD 03/19/2021 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 graft Ramón Hong MD 03/19/2021 Z98.61 Coronary angioplasty status Daniel Hong MD 03/19/2021 Z86.79 Personal history of other diseas es of the circulatory system Ramón Hong MD 03/19/2021 Z95.810 Presence of automatic (implantab le) cardiac defibrillator Ramón Hong MD 03/18/2021 I48.91 Unspecified atrial fibrillation Manish Pacheco MD 03/18/2021 I42.0 Dilated cardiomyopathy Manish gil MD 03/18/2021 Z79.01 alf (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 antic oagulants Manish Pacheco MD 03/16/2021 N17.9 Acute kidney failure, unspecifie d Ramón Hong MD 03/16/2021 R34 Anuria and oliguria Ramón jurado MD 03/16/2021 F17.200 Nicotine dependence, unspecified , uncomplicated Raómn Hong MD 03/16/2021 K43.2 Incisional hernia without obstru ction or gangrene Jakub Jones MD 03/16/2021 N17.9 Acute kidney failure, unspecifie d Jakub Jones MD 03/16/2021 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 mellitus w diabe tic chronic kidney disease Jakub Jones MD 03/16/2021 I48.91 Unspecified atrial fibrillation Jakub Jones MD 03/16/2021 I13.0 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 kathrine l and stg 1-4/unsp chr flores Jones MD 03/16/2021 I50.22 Chronic systolic (congestive) he art failure Jakub Jones MD 03/16/2021 E78.5 Hyperlipidemia, unspecified Lucas Jones MD 03/13/2021 K43.2 Incisional hernia without obstru ction or gangrene Jakub Padilla MD 02/21/2021 I47.1 Supraventricular tachycardia Lang Abdul MD 02/21/2021 I25.5 Ischemic cardiomyopathy Juan Miguel Abdul MD 02/21/2021 I48.91 Unspecified atrial fibrillation Juan Miguel Abdul MD 02/21/2021 R06.02 Shortness of breath Juan Miguel murray MD 02/21/2021 I25.5 Ischemic cardiomyopathy [facility] 02/21/2021 I48.91 Unspecified atrial fibrillation [facility] 02/21/2021 I50.22 Chronic systolic (congestive) he art failure [facility] Plan of Treatment Future Appointment(s):* 09/05/2021 2:15 pm - Device Checks at [facility] AT [facility] * 09/05/2021 2:15 pm - Juan Miguel Abdul MD at [facility] AT [facility] 07/02/2021 - Magy Mendosa NP* L76.34 Postoperative seroma* New Xrays:* Ultrasound Abdominal Limited, Ordered: 07/02/21 Functional Status Description No Information Available Mental Status Description No Information Available Referrals Description No Information Available
--- OUTSIDE RECORDS SUMMARY | 2021-08-23 00:09 | CCD | Continuity of Care Document ---
Author Author Jamar CARUSO GEAR CODING MACHINE OPERATOR Organization Unknown Address [address], [address] [address] Phone [phone] Care Team Providers Care Personnel Worker Name Role Phone Body, Isabel ZULMA AUTM [phone] Marin Montana MD AUTM [phone] Juan Miguel Abdul MD AUTM [phone] Problems Active Problems Provider Date Automatic implantable [...] day 180tabs Juan Miguel Abdul MD 04/01/2017 Docusate Sodium 100mg Capsules 1 by mouth twice a day Unknown Furosemide 40mg Tablets 1.5 tab (60mg) by mouth every day 90tabs Juan Miguel Abdul MD Acetaminophen 325mg Tablets take 3 tabs every 8 hours needed Unknown 00 Amiodarone HCL 200mg Tablets 1 by mouth every other day (Alternates with 100 mg dose) Un known Atorvastatin Calcium 20mg Tablets 1 by mouth every day Unknown Gabapentin 300mg Capsules 1 by mouth daily Unknown Ferrous Sulfate 324(65Fe) mg Table ts DR 1 by mouth twice a day Unknown Carvedilol 6.25mg Tablets 1 by mouth twice [...] skip Friday, then 1 tab PO daily Fri thru Fri 30tabs Juan Miguel Abdul MD 02/21/2021 - 03/23/2021 Amiodarone HCL 100mg Tablets 1 by mouth every day Manish Pacheco MD 01/15/2021 - Entresto 49-51mg Tablets 1 by mouth twice a day Juan Miguel Abdul MD 01/15/2021 - 03/22/2021 Amiodarone HCL 200mg Tablets 1/2 by mouth every day 30tabs Manish Pacheco MD 01/15/2021 - 09/2020 Immunizations CPT Code Status Date Vaccine Lot # [id number] Given 12/19/2020 Moderna Covid-19 Sars-Cov-2, mRNA, LNP-S, PF, 100 mcg/ 0.5 mL [id number] Given 11/21/2020 Moderna Covid-19 Sars-Cov-2, mRNA, LNP-S, [...] Test Result H/L Range Note Cbcadp 06/29/2021 [facility] [address] [place], [place] [id number] [phone] WBC. 6.68 x10E3/uL 4.2-12.0 1 RBC 3.63 x10E6/uL Low 4.4-6.0 HGB 10.8 g/dL Low 13.8-18.0 HCT 34.4 % Low 39-52 MCV 94.9 fL 80-98 MCH 29.8 pg 27-33 MCHC 31.4 g/dL Low 32-36 RDW 16.4 % High 11.2-15.2 PLT 155 x10E3/uL 135-420 MPV 8.0 fL 7.0-12.3 % Keesha 82.3 % High 41.0-80.0 %Lym 12.3 % 10.0-45.2 %[place] 3.3 % 2.0-13.0 %Eos 2.0 % 0.0-8.0 %Baso 0.1 % 0.0-3.0 Neut 5.5 x10E3/uL 2.0-8.1 Lymp 0.8 x10E3/uL 0.6-3.1 [place] 0.2 x10E3/uL 0.0-1.0 Eos 0.1 x10E3/uL 0.0-0.6 Baso 0.0 x10E3/uL 0.0-0.2 BMP-Male 06/29/2021 [facility] [address] [place] [address] [phone] Glucose 293 mg/dL High 74-106 2 BUN 54 mg/dL 6-20 3 Creatinine 1.9 mg/dL High 0.5-1.3 Sodium 138 mmol/L 136-145 Potassium 3.8 mmol/L 3.5-5.3 Chloride 109 mmol/L High 98-107 Co2 19 mEq/L Low 20-31 Anion Gap 10 mmol/L 7-16 eGFR-male 36 mL/m/1.73m - eGFR-Aa male 43 mL/m/1.73m - 4 Calcium 8.7 mg/dL Low 8.9-10.5 Laboratory test finding 06/29/2021 [facility] [address] [place] [address] [phone] Magnesium 1.7 mg/dL 1.7-2.4 Troponin, Ultra 0.020 ng/mL 0-0.047 BNP 705.8 pg/mL High 0-100 Venipuncture DONE - Laboratory test finding 06/11/2021 [facility] [address] [place] [address] [phone] Sars-Cov-2 Rna <pending> Laboratory test finding 03/28/2021 [facility] [address] [place] [place] [address] [phone] BNP 1170.4 pg/mL High 0-100 5 Venipuncture DONE - 6 CMP-Male W/LDH,Phosphorus,Uric 02/21/2021 [facility] [address] [place] [place] [address] [phone] LDH 252 U/L High 120-246 Phosphorus 4.1 mg/dL 2.7-4.5 7 Uric Acid 8.5 mg/dL High 2.6-7.2 CMP-Male 02/21/2021 [facility] [address] [place] [place] [address] [phone] Glucose 238 mg/dL High 74-106 8 BUN [...] 1.9-3.7 Calcium 9.6 mg/dL 8.9-10.5 Cbcadp 02/21/2021 [facility] [address] [place] [place] [address] [phone] WBC. 6.06 x10E3/uL 4.2-12.0 RBC 3.93 x10E6/uL Low 4.4-6.0 HGB 12.1 g/dL Low 13.8-18.0 HCT 39.5 % 39-52 MCV 100.5 fL High 80-98 MCH 30.8 pg 27-33 MCHC 30.7 g/dL Low 32-36 RDW 18.2 % High 11.2-15.2 PLT 157 x10E3/uL 135-420 MPV 8.5 fL 7.0-12.3 % Keesha 66.8 % 41.0-80.0 %Lym 23.1 % 10.0-45.2 %[place] 7.2 % 2.0-13.0 %Eos 2.8 % 0.0-8.0 %Baso 0.2 % 0.0-3.0 Neut 4.1 x10E3/uL 2.0-8.1 Lymp 1.4 x10E3/uL 0.6-3.1 [place] 0.4 x10E3/uL 0.0-1.0 Eos 0.2 x10E3/uL 0.0-0.6 Baso 0.0 x10E3/uL 0.0-0.2 Laboratory test finding 02/21/2021 [facility] [address] [place] [address] [phone] TSH3 3.622 mIU/ml 0.350-5.500 Free T4 1.66 ng/dL 0.89-1.80 BNP 2118.0 pg/mL 0-100 14 Venipuncture DONE - 1 Labprint and transmitted 3:4 4pm 06/29/2021 ak 2 [employer] n (ADA) Recommended Range is [...] SST Drawn as Extra. 7 02/28/2020-According to [employer] - Blood samples from some patients with monoclonal gammopathies may produce falsely elevated phosphorous results with this assay. 8 [employer] n (ADA) Recommended Range is 65-99 mg/dL 9 Results Confirmed by Repeat Analysis. Results faxed at 1034 02/22/21 kk 10 Results Confirmed by Repeat Analysis. 11 Normal Kidney Function or Mi ld Disease GFR >59 mL/min/1.73m2 Chronic Kidney Disease GFR 15-59 mL/min/1.73m2 Renal Failure GFR <15 mL/min/1.73m2 12 Effective 03/22/2017: [employer] has indicated interference with the drugs sulfasalazine and sulfapyridine. They suggest collection should occur prior to drug administration due to falsely depressed results. 13 Results may reflect a potent ial interference in Total Protein results in patients receiving dextran as blood volume expanders. 14 Results Confirmed by Repeat Analysis. Results faxed at 1039 02/22/21 called to Xuan at 1039 02/22/21 Procedures Date Code Description Status 06/29/2021 74862 Office/Outpatient Established Mo d MDM 30-39 Min Completed 06/15/2021 63229 I & D Hematoma Completed 05/30/2021 80834 Office/Outpatient Established Mo d MDM 30-39 Min Completed 05/30/2021 70085 Electrocardiogram Complete Compl eted 04/18/2021 52543 TCM-Mod Completed 04/14/2021 55210 Hospital Subsequent Care Level 2 Completed 04/13/2021 39653 Hospital Subsequent Care Level 2 Completed 04/13/2021 53376 Electrocardiogram Interpretation & Report Only Completed 04/13/2021 34292 Cardioversion, Elective, Externa l Completed 04/12/2021 74574 Hospital Initial Care Level 1 Co mpleted 03/28/2021 23070 TCM-Mod Completed 03/28/2021 52508 Single Lead Implant Cardioverter -Defibrillator Completed 03/19/2021 93841 Hospital Subsequent Care Level 2 Completed 03/18/2021 07475 Hospital Subsequent Care Level 2 Completed 03/16/2021 30831 Hospital Initial Care Level 1 Co mpleted 03/16/2021 92328 Electrocardiogram Interpretation & Report Only Completed 03/13/2021 57995 Implant For Incisional/Ventral H ernia Repair Completed 03/13/2021 42947 Repair Hernia Incisional/Ventral Recurrent, Reducible Completed 03/13/2021 95097 Remove Support Implant Deep Comp leted 02/21/2021 14194 Office/Outpatient Established Mo d MDM 30-39 Min Completed 02/21/2021 31451 Electrocardiogram Complete Compl eted 2021 48581 Office/Outpatient Established Mo d MDM 30-39 Min Completed 01/15/2021 53948 Office/Outpatient Established Mo d MDM 30-39 Min Completed 01/15/2021 13825 Electrocardiogram Complete Compl eted Medical Devices Description No Information Available Encounters Type Date Location Provider Dx Diagnosis Office Visit 06/29/2021 2:45p [facility] [place] Renée interiano NP 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 Z95.810 Presence of automatic (impla ntable) cardiac defibrillator I25.5 Ischemic cardiomyopathy I50.22 Chronic systolic (congestive ) heart failure I49.01 Ventricular fibrillation R27.0 Ataxia, unspecified Z82.49 Family hx of ischem heart di s and oth dis of the circ sys Office Visit 06/25/2021 10:00a [facility] Surgical Services Katelin mckeon, ZULMA Z48.817 Encntr for surgical aftcr fol surgery on the skin, subcu L76.34 Postproc seroma of skin, sub cu following other procedure Office Visit 05/30/2021 11:15a [facility] Surgical Services Johnathan Cornejo L76.34 Postproc seroma of skin, subcu following other procedure K43.2 Incisional hernia without ob struction or gangrene Z48.815 Encntr for surgical aftcr fo llowing surgery on the dgstv sys Office Visit 05/30/2021 9:45a [facility] Cardiology AT [facility] Juan Miguel Abdul MD R07.89 Other chest pain Z95.810 Presence of automatic (impla ntable) cardiac defibrillator 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 I50.32 Chronic diastolic (congestiv e) heart failure I48.0 Paroxysmal atrial fibrillati on I36.1 Nonrheumatic tricuspid (valv e) insufficiency Z79.01 jail (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 a 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 E11.9 Type 2 diabetes mellitus wit hout complications I11.0 Hypertensive heart disease w ith heart failure Z79.4 director long term care (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 i nsulin Office Visit 04/30/2021 10:30a [facility] Surgical Services Katelin mckeon, GEAR CODING MACHINE OPERATOR Z48.815 Encntr for surgical aftcr following surg terri on the dgstv sys L76.34 Postproc seroma of skin, sub cu following other procedure K43.2 Incisional hernia without ob struction or gangrene Office Visit 04/18/2021 9:30a [facility] Cardiology AT [facility] Juan Miguel Abdul MD Z95.810 Presence of automatic (impla ntable) cardiac defibrillator I50.23 Acute on chronic systolic (c ongestive) heart failure I25.5 Ischemic cardiomyopathy I34.0 Nonrheumatic mitral (valve) insufficiency E11.9 Type 2 diabetes mellitus wit hout complications Office Visit 04/18/2021 2:00p [facility] Surgical Services Katelin mckeon NP L76.34 Postproc seroma of skin, subcu following other procedure K43.2 Incisional hernia without ob struction or gangrene Z48.815 Encntr for surgical aftcr fo llowing surgery on the [email or web address] sys Z82.49 Family hx of ischem heart di s and oth dis of the circ sys Office Visit 04/14/2021 3:08a [facility] Surgical Services Pako brewster MD L76.34 Postproc seroma of skin, subcu following other procedure Office Visit 04/14/2021 3:11a [facility] Cardiology [facility] Pan jara MD I50.22 Chronic systolic (congestive) heart fail ure I48.92 Unspecified atrial flutter 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 N18.9 Chronic kidney disease, unsp ecified L76.34 Postproc seroma of skin, sub cu following other procedure 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 Office Visit 04/13/2021 10:12a [facility] Cardiology [facility] Juan Miguel murray MD I48.92 Unspecified atrial flutter I50.9 Heart failure, unspecified N18.9 Chronic kidney disease, unsp ecified L76.34 Postproc seroma of skin, sub cu following other procedure Office Visit 04/12/2021 9:24a [facility] Cardiology [facility] Juan Miguel murray MD I50.9 Heart failure, unspecified I48.91 Unspecified atrial fibrillat ion I44.0 Atrioventricular block, firs t degree R10.9 Unspecified abdominal pain Office Visit 04/03/2021 11:00a [facility] Surgical Services Katelin Zaragoza NP K43.2 Incisional hernia without obstruction or gangrene Z48.815 Encntr for surgical aftcr fo llowing surgery on the dgstv sys Office Visit 03/28/2021 2:30p [facility] Surgical Services Katelin Zaragoza NP K43.2 Incisional hernia without obstruction or gangrene Z48.815 Encntr for surgical aftcr fo llowing surgery on the dgstv sys Office Visit 03/28/2021 10:15a [facility]iology AT [place] Vince Garcia NP 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 I48.91 Unspecified atrial fibrillat ion Z95.810 Presence of automatic (impla ntable) cardiac defibrillator I42.0 Dilated cardiomyopathy I50.20 Unspecified systolic (conges tive) heart failure N17.9 Acute kidney failure, unspec ified Z82.49 Family hx of ischem heart di s and oth dis of the [facility] sys Z87.891 Personal history of nicotine dependence Z79.01 jail (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 a 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 Office Visit 03/21/2021 3:33a [facility] Surgical Services Johnathan Cornejo Office Visit 03/20/2021 2:43a [facility] Surgical Services Johnathan Cornejo Office Visit 03/19/2021 2:40a [facility] Surgical Services Johnathan Cornejo Office Visit 03/19/2021 2:36a [facility] Cardiology [facility] Ramón jurado MD 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 I50.20 Unspecified systolic (conges tive) heart failure I48.91 Unspecified atrial fibrillat ion N17.9 Acute kidney failure, unspec ified K91.89 Oth postprocedural complicat ions and disorders of stv sys N18.9 Chronic kidney disease, unsp ecified 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 Z98.61 Coronary angioplasty status Z86.79 Personal history of other di seases of the circulatory system Z95.810 Presence of automatic (impla ntable) cardiac defibrillator Office Visit 03/18/2021 2:26a [facility] Cardiology [facility] Johnathan Corcoran I48.91 Unspecified atrial fibrillation I42.0 Dilated cardiomyopathy Z79.01 jail (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 a 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 Office Visit 03/17/2021 2:29a [facility] Kriss Coon MD Office Visit 03/16/2021 2:32a [facility] Cardiology [facility] Ramón Hong MD N17.9 Acute kidney failure, unspecified R34 Anuria and oliguria F17.200 Nicotine dependence, unspeci fied, uncomplicated Office Visit 03/16/2021 2:30a [facility] Johnathan Cornejo Office Visit 03/15/2021 2:33a [facility] Kraig garsia MD Office Visit 03/14/2021 2:41a [facility] Johnathan Cornejo Office Visit 02/21/2021 10:30a [facility] AT [facility] Juan Miguel Abdul MD I47.1 Supraventricular tachycardia I25.5 Ischemic cardiomyopathy I48.91 Unspecified atrial fibrillat ion R06.02 Shortness of breath Office Visit 2021 10:00a [facility] Surgical Services Johnathan Cornejo K43.2 Incisional hernia without obstruction or gangrene Z79.01 jail (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 a 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 Office Visit 01/15/2021 10:15a [facility] [place] Juan Miguel alexis MD I48.91 Unspecified atrial fibrillation Z95.810 Presence of automatic (impla ntable) cardiac defibrillator I50.22 Chronic systolic (congestive ) heart failure I34.0 Nonrheumatic mitral (valve) insufficiency I48.0 Paroxysmal atrial fibrillati on E11.9 Type 2 diabetes mellitus wit hout complications I25.5 Ischemic cardiomyopathy E78.2 Mixed hyperlipidemia Z79.4 director long term care (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 i nsulin Assessments Date Code Description Provider 07/02/2021 L76.34 Postoperative seroma Magy sharma, ZULMA 06/29/2021 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telida coronary artery without angina pectoris Renée Caruso NP 06/29/2021 Z95.810 Presence of automatic (implantab le) cardiac defibrillator Renée Caruso NP 06/29/2021 I25.5 Ischemic cardiomyopathy Renée chaudhry NP 06/29/2021 I50.32 Chronic diastolic (congestive) h eart failure [facility] 06/29/2021 I50.22 Chronic systolic (congestive) he art failure Renée Caruso, GEAR CODING MACHINE OPERATOR 06/29/2021 I49.01 Ventricular fibrillation Renée jesus, GEAR CODING MACHINE OPERATOR 06/29/2021 R27.0 Ataxia, unspecified Renée wallace, GEAR CODING MACHINE OPERATOR 06/29/2021 R06.02 Shortness of breath [facility] 06/29/2021 Z82.49 Family history of is chemic heart disease and other diseases of the circulatory system Renée Caruso, GEAR CODING MACHINE OPERATOR 06/29/2021 R07.89 Other chest pain [facility] 06/29/2021 I50.32 Chronic diastolic (congestive) h eart failure [facility] 06/29/2021 R06.02 Shortness of breath [facility] 06/29/2021 R07.89 Other chest pain [facility] 06/25/2021 Z48.817 Encounter for surgic al aftercare following surgery on the skin and subcutaneous tissue Katelin Zaragoza NP 06/25/2021 L76.34 Postoperative seroma Katelin stover NP 06/15/2021 L76.34 Postprocedural serom a of skin and subcutaneous tissue following other procedure Jakub Padilla MD 06/15/2021 Z79.899 Other long term acute care registered nurse (current) drug t herapy Jakub Padilla MD 06/15/2021 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telida coronary artery without angina pectoris Jakub Padilla MD 06/15/2021 E11.9 Type 2 diabetes mellitus without complications Jakub Padilla MD 06/15/2021 I10 Essential (primary) hypertension Jakub Padilla MD 06/15/2021 Z79.84 jail (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 oral hypoglycemic drugs Jakub Padilla MD 05/30/2021 R07.89 Other chest pain Juan Miguel Abdul MD 05/30/2021 L76.34 Postoperative seroma Jakub alcantar MD 05/30/2021 Z95.810 Presence of automatic (implantab le) cardiac defibrillator Juan Miguel Abdul MD 05/30/2021 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telida coronary artery without angina pectoris Juan Miguel Abdul MD 05/30/2021 K43.2 Incisional hernia without obstru ction or gangrene Jakub Padilla MD 05/30/2021 I50.32 Chronic diastolic (congestive) h eart failure Juan Miguel Abdul MD 05/30/2021 I48.0 Paroxysmal atrial fibrillation W illkimberly Abdul MD 05/30/2021 I36.1 Nonrheumatic tricuspid (valve) i nsufficiency Juan Miguel Abdul MD 05/30/2021 Z48.815 Encounter for surgic al aftercare following surgery on the digestive system Jakub Padilla MD 05/30/2021 Z79.01 director long term care (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 antic oagulants Juan Miguel Abudl MD 05/30/2021 E11.9 Type 2 diabetes mellitus without complications Juan Miguel Abdul MD 05/30/2021 I11.0 Hypertensive heart disease with heart failure Juan Miguel Abdul MD 05/30/2021 Z79.4 jail (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 insul in Juan Miguel [...] 04/14/2021 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telida coronary artery without angina pectoris [facility] [...] obstru ction or gangrene Katelin Zaragoza NP 03/28/2021 Z48.815 Encounter for surgic al aftercare following surgery on the digestive system Katelin Zaragoza NP 03/28/2021 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telida coronary artery without angina pectoris Camden Garcia NP 03/28/2021 I48.91 Unspecified atrial fibrillation Camden Garcia NP 03/28/2021 Z95.810 Presence of automatic (implantab le) cardiac defibrillator Camden Garcia NP 03/28/2021 I42.0 Dilated cardiomyopathy [facility] 03/28/2021 I42.0 Dilated cardiomyopathy Vince Garcia NP 03/28/2021 I50.20 Unspecified systolic (congestive ) heart failure Camden Garcia NP 03/28/2021 N17.9 Acute kidney failure, unspecifie d Camden Garcia NP 03/28/2021 Z82.49 Family history of is chemic heart disease and other diseases of the circulatory system Camden Garcia NP 03/28/2021 Z95.810 Presence of automatic (implantab le) cardiac defibrillator [facility] 03/28/2021 Z87.891 Personal history of nicotine dep endence Camden Garcia NP 03/28/2021 Z79.01 jail (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 antic oagulants Camden Garcia NP 03/28/2021 I42.0 Dilated cardiomyopathy [facility] 03/28/2021 I50.20 Unspecified systolic (congestive ) heart failure [facility] 03/28/2021 Z95.810 Presence of automatic (implantab le) cardiac defibrillator [facility] 03/28/2021 I50.20 Unspecified systolic (congestive ) heart failure [facility] 03/28/2021 Z95.810 Presence of automatic (implantab le) cardiac defibrillator Device Checks 03/28/2021 I42.0 Dilated cardiomyopathy Device [facility] 03/19/2021 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telida coronary artery without angina pectoris Ramón Hong [...] Pacheco MD 03/18/2021 I42.0 Dilated cardiomyopathy Manish gli MD 03/18/2021 Z79.01 jail (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 antic oagulants Manish Pacheco MD 03/16/2021 N17.9 Acute kidney failure, unspecifie d Ramón Hong MD 03/16/2021 R34 Anuria and oliguria Ramón jurado MD 03/16/2021 F17.200 Nicotine dependence, unspecified , uncomplicated Ramón Hong MD 03/16/2021 K43.2 Incisional hernia without [...] Jakub Jones MD 03/16/2021 E78.5 Hyperlipidemia, unspecified Lucastatiana Jones MD 03/13/2021 K43.2 Incisional hernia without obstru ction or gangrene Jakub Padilla MD 02/21/2021 I47.1 Supraventricular tachycardia Lang Abdul MD 02/21/2021 I25.5 Ischemic cardiomyopathy Juan Miguel Abdul MD 02/21/2021 I48.91 Unspecified atrial fibrillation Juan Miguel Abdul MD 02/21/2021 R06.02 Shortness of breath Juan Miguel murray MD 02/21/2021 I25.5 Ischemic cardiomyopathy [facility] 02/21/2021 I48.91 Unspecified atrial fibrillation [facility] 02/21/2021 I50.22 Chronic systolic (congestive) he art failure [facility] 2021 K43.2 Recurrent hernia of anterior abd ominal wall Jakub Padilla MD 2021 Z79.01 jail (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 antic oagulants Jakub Padilla MD 01/15/2021 I48.91 Unspecified atrial fibrillation Juan Miguel Abdul MD 01/15/2021 Z95.810 Presence of automatic (implantab le) cardiac defibrillator Juan Miguel Abdul MD 01/15/2021 I50.22 Chronic systolic (congestive) he art failure Juan Miguel Abdul MD 01/15/2021 I34.0 Nonrheumatic mitral (valve) insu fficiency Juan Miguel Abdul MD 01/15/2021 I48.0 Paroxysmal atrial fibrillation W illkimberly Abdul MD 01/15/2021 E11.9 Type 2 diabetes mellitus without complications Juan Miguel Abdul MD 01/15/2021 I25.5 Ischemic cardiomyopathy Juan Miguel Abdul MD 01/15/2021 E78.2 Mixed hyperlipidemia Juan Miguel loco MD 01/15/2021 Z79.4 director long term care (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 insul in Juan Miguel Abdul MD Plan of Treatment Future Appointment(s):* 09/05/2021 2:15 pm - Device Checks at [facility] Cardiology AT [facility] * 09/05/2021 2:15 pm - Juan Miguel Abdul MD at [facility] Cardiology AT [facility] 07/02/2021 - Magy Mendosa NP* L76.34 Postoperative seroma* New Xrays:* Ultrasound Abdominal Limited, Ordered: 07/02/21 Functional Status Description No Information Available Mental Status Description No Information Available Referrals Description No Information Available
--- OUTSIDE RECORDS SUMMARY | 2021-08-23 00:09 | CCD | Continuity of Care Document ---
Author Author Jamar ZARAGOZA WORLD TRAVEL COUNSELOR Organization Unknown Address [address] [place] [address], [address] [place] [id number] Phone [phone] Care Team Providers Care Cake Puncher Name Role Phone Body, Isabel ZULMA AUTM [phone] Marin Montana MD AUTM [phone] Juan Miguel Abdul MD AUTM [phone] Problems Active Problems Provider Date Automatic implantable [...] twice a day Unknown Furosemide 40mg Tablets 1 by mouth every day 90tabs [...] CPT Code Status Date Vaccine Lot # [id number] Given 12/19/2020 Moderna Covid-19 Sars-Cov-2, mRNA, LNP-S, PF, 100 mcg/ 0.5 mL 28333 Given 11/21/2020 Moderna Covid-19 Sars-Cov-2, mRNA, LNP-S, PF, 100 mcg/ 0.5 mL Vital Signs Date Vital Result Comment 06/29/2021 2:47pm Height 74.00 inches 6'2" Weight 232.25 lb BMI (Body Mass Index) 29.8 kg/m2 BP Systolic Left Arm 168 mmHg BP Diastolic Left Arm 70 mmHg Heart Rate 68 /min 06/25/2021 10:20am Height 74.00 inches 6'2" Weight 229.00 lb BMI (Body Mass Index) 29.4 kg/m2 BP Systolic 118 mmHg BP Diastolic 61 mmHg Heart Rate 76 /min Body Temperature 98.4 F Body Temperature 36.9 C O2 % BldC Oximetry 97 % Results Test Acquired Date Facility Test Result H/L Range Note Laboratory test finding 06/11/2021 [facility] [address] [place] [place] [address] [phone] Sars-Cov-2 Rna <pending> Laboratory test finding 03/28/2021 [facility] [address] [place] [address] [phone] BNP 1170.4 pg/mL High 0-100 1 Venipuncture DONE - 2 CMP-Male W/LDH,Phosphorus,Uric 02/21/2021 [facility] [address] [place] [address] [phone] LDH 252 U/L High 120-246 Phosphorus 4.1 mg/dL 2.7-4.5 3 Uric Acid 8.5 mg/dL High 2.6-7.2 CMP-Male 02/21/2021 [facility] [address] [place], [place] [id number] [phone] Glucose 238 mg/dL High 74-106 4 BUN 54 mg/dL 6-20 5 Creatinine 2.1 mg/dL High 0.5-1.3 Sodium 142 mmol/L 136-145 6 Potassium 4.7 mmol/L 3.5-5.3 Chloride 104 mmol/L 98-107 Co2 25 mEq/L 20-31 Anion Gap 13 mmol/L 7-16 eGFR-male 32 mL/m/1.73m - eGFR-Aa male 38 mL/m/1.73m - 7 Alk. Phos. 96 U/L 46-116 Alt 53 U/L High 4-36 8 Ast 37 U/L High 8-33 Total Bilirubin 0.8 mg/dL 0.3-1.2 Total Protein 7.5 g/dL 6.4-8.3 9 Albumin 4.4 g/dL 3.6-5.1 A/G Ratio 1.4 Ratio 1.0-2.0 Globulin 3.1 g/dL 1.9-3.7 Calcium 9.6 mg/dL 8.9-10.5 Cbcadp 02/21/2021 [facility] [address] [place] [address] [phone] WBC. 6.06 x10E3/uL 4.2-12.0 RBC 3.93 x10E6/uL Low 4.4-6.0 HGB 12.1 g/dL Low 13.8-18.0 HCT 39.5 % 39-52 MCV 100.5 fL High 80-98 MCH 30.8 pg 27-33 MCHC 30.7 g/dL Low 32-36 RDW 18.2 % High 11.2-15.2 PLT 157 x10E3/uL 135-420 MPV 8.5 fL 7.0-12.3 % Keesha 66.8 % 41.0-80.0 %Lym 23.1 % 10.0-45.2 %[place] 7.2 % 2.0-13.0 %Eos 2.8 % 0.0-8.0 %Baso 0.2 % 0.0-3.0 Neut 4.1 x10E3/uL 2.0-8.1 Lymp 1.4 x10E3/uL 0.6-3.1 [place] 0.4 x10E3/uL 0.0-1.0 Eos 0.2 x10E3/uL 0.0-0.6 Baso 0.0 x10E3/uL 0.0-0.2 Laboratory test finding 02/21/2021 [facility] [address] [place] [address] [phone] TSH3 3.622 mIU/ml 0.350-5.500 Free T4 1.66 ng/dL 0.89-1.80 BNP 2118.0 pg/mL 0-100 10 Venipuncture DONE - 1 Labprint and transmitted at 1217 03/28/21 kk 2 STAT Draw Completed at 1120. SST Drawn as Extra. 3 02/28/2020-According to [facility] EHR - Blood samples from some patients with monoclonal gammopathies may produce falsely elevated phosphorous results with this assay. 4 [place] Diabetes Associ[employer] n (ADA) Recommended Range is 65-99 mg/dL 5 Results Confirmed by Repeat Analysis. Results faxed at [phone] 02/22/21 kk 6 Results Confirmed by Repeat Analysis. 7 Normal Kidney Function or Mi ld Disease GFR >59 mL/min/1.73m2 Chronic Kidney Disease GFR 15-59 mL/min/1.73m2 Renal Failure GFR <15 mL/min/1.73m2 8 Effective 03/22/2017: [employer] has indicated interference with the drugs sulfasalazine and sulfapyridine. They suggest collection should occur prior to drug administration due to falsely depressed results. 9 Results may reflect a potent ial interference in Total Protein results in patients receiving dextran as blood volume expanders. 10 Results Confirmed by Repeat Analysis. Results faxed at 1036 02/22/21 kk called to Xuan at 1030 02/22/21 kk Procedures Date Code Description Status 06/15/2021 81231 I & D Hematoma Completed 05/30/2021 46939 Office/Outpatient Established Mo d MDM 30-39 Min Completed 05/30/2021 83284 Electrocardiogram Complete Compl eted 04/18/2021 99193 TCM-Mod Completed 04/14/2021 11146 Hospital Subsequent Care Level 2 Completed 04/13/2021 01324 Hospital Subsequent Care Level 2 Completed 04/13/2021 99725 Electrocardiogram Interpretation & Report Only Completed 04/13/2021 29559 Cardioversion, Elective, Externa l Completed 04/12/2021 21767 Hospital Initial Care Level 1 Co mpleted 03/28/2021 85345 TCM-Mod Completed 03/28/2021 90683 Single Lead Implant Cardioverter -Defibrillator Completed 03/19/2021 16675 Hospital Subsequent Care Level 2 Completed 03/18/2021 72575 Hospital Subsequent Care Level 2 Completed 03/16/2021 93423 Hospital Initial Care Level 1 Co mpleted 03/16/2021 88460 Electrocardiogram Interpretation & Report Only Completed 03/13/2021 13735 Implant For Incisional/Ventral H ernia Repair Completed 03/13/2021 26517 Repair Hernia Incisional/Ventral Recurrent, Reducible Completed 03/13/2021 39330 Remove Support Implant Deep Comp leted 02/21/2021 67512 Office/Outpatient Established Mo d MDM 30-39 Min Completed 02/21/2021 96991 Electrocardiogram Complete Compl eted 2021 16240 Office/Outpatient Established Mo d MDM 30-39 Min Completed 01/15/2021 38938 Office/Outpatient Established Mo d MDM 30-39 Min Completed 01/15/2021 92053 Electrocardiogram Complete Compl eted Medical Devices Description No Information Available Encounters Type Date Location Provider Dx Diagnosis Office Visit 06/25/2021 10:00a [facility] Surgical Services Katelin mckeon, ZULMA Z48.817 Encntr for surgical aftcr fol surgery on the skin, subcu L76.34 Postproc seroma of skin, sub cu following other procedure Office Visit 05/30/2021 11:15a [facility] Surgical Services Johnathan Cornejo L76.34 Postproc seroma of skin, subcu following other procedure K43.2 Incisional hernia without ob struction or gangrene Z48.815 Encntr for surgical aftcr fo llowing surgery on the dgstv sys Office Visit 05/30/2021 9:45a [facility] Cardiology AT [facility] Juan Miguel Abdul MD R07.89 Other chest pain Z95.810 Presence of automatic (impla ntable) cardiac defibrillator 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 I50.32 Chronic diastolic (congestiv e) heart failure I48.0 Paroxysmal atrial fibrillati on I36.1 Nonrheumatic tricuspid (valv e) insufficiency Z79.01 joint terminal attack controller (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 a 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 E11.9 Type 2 diabetes mellitus wit hout complications I11.0 Hypertensive heart disease w ith heart failure Z79.4 joint terminal attack controller (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 i nsulin Office Visit 04/30/2021 10:30a [facility] Surgical Services Katelin mckeon, WORLD TRAVEL COUNSELOR Z48.815 Encntr for surgical aftcr following surg terri on the rust sys L76.34 Postproc seroma of skin, sub cu following other procedure K43.2 Incisional hernia without ob struction or gangrene Office Visit 04/18/2021 9:30a [facility] Cardiology AT [facility] Juan Miguel Abdul MD Z95.810 Presence of automatic (impla ntable) cardiac defibrillator I50.23 Acute on chronic systolic (c ongestive) heart failure I25.5 Ischemic cardiomyopathy I34.0 Nonrheumatic mitral (valve) insufficiency E11.9 Type 2 diabetes mellitus wit hout complications Office Visit 04/18/2021 2:00p [facility] Surgical Services Katelin mckeon, WORLD TRAVEL COUNSELOR L76.34 Postproc seroma of skin, subcu following other procedure K43.2 Incisional hernia without ob struction or gangrene Z48.815 Encntr for surgical aftcr fo llowing surgery on the rust sys Z82.49 Family hx of ischem heart di s and oth dis of the [facility] sys Office Visit 04/14/2021 3:08a [facility] Surgical Services Pako brewster MD L76.34 Postproc seroma of skin, subcu following other procedure Office Visit 04/14/2021 3:11a [facility] Cardiology [facility] Pan jara MD I50.22 Chronic systolic (congestive) heart fail ure I48.92 Unspecified atrial flutter 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 N18.9 Chronic kidney disease, unsp ecified L76.34 Postproc seroma of skin, sub cu following other procedure 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 Office Visit 04/13/2021 10:12a [facility] Cardiology [facility] Juan Miguel murray MD I48.92 Unspecified atrial flutter I50.9 Heart failure, unspecified N18.9 Chronic kidney disease, unsp ecified L76.34 Postproc seroma of skin, sub cu following other procedure Office Visit 04/12/2021 9:24a [facility] Cardiology [facility] Juan Miguel murray MD I50.9 Heart failure, unspecified I48.91 Unspecified atrial fibrillat ion I44.0 Atrioventricular block, firs t degree R10.9 Unspecified abdominal pain Office Visit 04/03/2021 11:00a [facility] Surgical Services Katelin Zaragoza NP K43.2 Incisional hernia without obstruction or gangrene Z48.815 Encntr for surgical aftcr fo llowing surgery on the rust sys Office Visit 03/28/2021 2:30p [facility] Surgical Services Katelin Zaragoza NP K43.2 Incisional hernia without obstruction or gangrene Z48.815 Encntr for surgical aftcr fo llowing surgery on the rust sys Office Visit 03/28/2021 10:15a [facility] Cardiology AT [place] Vince Garcia, WORLD TRAVEL COUNSELOR I25.10 Athscl heart disease of [place] coronary artery w/o ang pctrs I48.91 Unspecified atrial fibrillat ion Z95.810 Presence of automatic (impla ntable) cardiac defibrillator I42.0 Dilated cardiomyopathy I50.20 Unspecified systolic (conges tive) heart failure N17.9 Acute kidney failure, unspec ified Z82.49 Family hx of ischem heart di s and oth dis of the [facility] Z87.891 Personal history of nicotine dependence Z79.01 halfway (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 a 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 Office Visit 03/21/2021 3:33a [facility] Surgical Services Johnathan Cornejo Office Visit 03/20/2021 2:43a [facility] Surgical Services Johnathan Cornejo Office Visit 03/19/2021 2:40a [facility] Surgical Services Johnathan Cornejo Office Visit 03/19/2021 2:36a [facility] Cardiology [facility] Ramón jurado MD I25.10 Athscl heart disease of [place] coronary artery w/o ang pctrs I50.20 Unspecified [...] ntable) cardiac defibrillator Office Visit 03/18/2021 2:26a [facility] Cardiology [facility] Johnathan Corcoran I48.91 Unspecified atrial fibrillation I42.0 Dilated cardiomyopathy Z79.01 joint terminal attack controller (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 a 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 Office Visit 03/17/2021 2:29a [facility] Surgical Services Kriss Coon MD Office Visit 03/16/2021 2:32a [facility] Cardiology [facility] Ramón Hong MD N17.9 Acute kidney failure, unspecified R34 Anuria and oliguria F17.200 Nicotine dependence, unspeci fied, uncomplicated Office Visit 03/16/2021 2:30a [facility] Surgical Services Johnathan Cornejo Office Visit 03/15/2021 2:33a [facility] Surgical Services Kraig garsia MD Office Visit 03/14/2021 2:41a [facility] Surgical Services Johnathan Cornejo Office Visit 02/21/2021 10:30a [facility] Cardiology AT [facility] Juan Miguel Abdul MD I47.1 Supraventricular tachycardia I25.5 Ischemic cardiomyopathy I48.91 Unspecified atrial fibrillat ion R06.02 Shortness of breath Office Visit 2021 10:00a [facility] Surgical Services Johnathan Cornejo K43.2 Incisional hernia without obstruction or gangrene Z79.01 halfway (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 a 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 Office Visit 01/15/2021 10:15a [facility] Cardiology AT [place] Juan Miguel alexis MD I48.91 Unspecified atrial fibrillation Z95.810 Presence of automatic (impla ntable) cardiac defibrillator I50.22 Chronic systolic (congestive ) heart failure I34.0 Nonrheumatic mitral (valve) insufficiency I48.0 Paroxysmal atrial fibrillati on E11.9 Type 2 diabetes mellitus wit hout complications I25.5 Ischemic cardiomyopathy E78.2 Mixed hyperlipidemia Z79.4 halfway (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 i nsulin Assessments Date Code Description Provider 06/25/2021 Z48.817 Encounter for surgic al aftercare following surgery on the skin and subcutaneous tissue Katelin Zaragoza, ZULMA 06/25/2021 L76.34 Postoperative seroma Katelin stover NP 06/15/2021 L76.34 Postprocedural serom a of skin and subcutaneous tissue following other procedure Jakub Padilla MD 06/15/2021 Z79.899 Other bed bug 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 (current) drug t herapy Jakub Padilla MD 06/15/2021 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[place] coronary artery without angina pectoris Jakub Padilla MD 06/15/2021 E11.9 Type 2 diabetes mellitus without complications Jakub Padilla MD 06/15/2021 I10 Essential (primary) hypertension Jakub Padilla MD 06/15/2021 Z79.84 halfway (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 oral hypoglycemic drugs Jakub Padilla MD 05/30/2021 R07.89 Other chest pain Juan Miguel Abdul MD 05/30/2021 L76.34 Postoperative seroma Jakub alcantar MD 05/30/2021 Z95.810 Presence of automatic (implantab le) cardiac defibrillator Juan Miguel Abdul MD 05/30/2021 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[place] coronary artery without angina pectoris Juan Miguel [...] digestive system Jakub Padilla MD 05/30/2021 Z79.01 halfway (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 antic oagulants Juan Miguel Abdul MD 05/30/2021 E11.9 Type 2 diabetes mellitus without complications Juan Miguel Abdul MD 05/30/2021 I11.0 Hypertensive heart disease with heart failure Juan Miguel Abdul MD 05/30/2021 Z79.4 halfway (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 insul in Juan Miguel [...] 04/14/2021 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[place] coronary artery without angina pectoris [facility] [place] [...] Incisional hernia without obstru ction or gangrene Ktaelin Zaragoza NP 03/28/2021 Z48.815 Encounter for surgic al aftercare following surgery on the digestive system Katelin Zaragoza NP 03/28/2021 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[place] coronary artery without angina pectoris Camden Garcia [...] le) cardiac defibrillator [facility] 03/28/2021 Z87.891 Personal history of nicotine dep endence Camden Garcia NP 03/28/2021 Z79.01 halfway (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 antic oagulants Camden Garcia NP 03/28/2021 I42.0 Dilated cardiomyopathy [facility] 03/28/2021 I50.20 Unspecified systolic (congestive ) heart failure [facility] 03/28/2021 Z95.810 Presence of automatic (implantab le) cardiac defibrillator [facility] 03/28/2021 I50.20 Unspecified systolic (congestive ) heart failure [facility] 03/28/2021 Z95.810 Presence of automatic (implantab le) cardiac defibrillator Device Checks 03/28/2021 I42.0 Dilated cardiomyopathy Device Ch ecks 03/19/2021 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[place] coronary artery without angina pectoris Ramón Hong [...] Dilated cardiomyopathy Manish gil MD 03/18/2021 Z79.01 joint terminal attack controller (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 antic oagulants Manish Pacheco [...] hrt kathrine l and stg 1-4/unsp chr jovanybetzaida Jakub Jones MD 03/16/2021 I50.22 Chronic systolic (congestive) he art failure Jakub Jones MD 03/16/2021 E78.5 Hyperlipidemia, unspecified Lucas mike Jones MD 03/13/2021 K43.2 Incisional hernia without [...] ominal wall Jakub Padilla MD 2021 Z79.01 halfway (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 antic oagulants Jakub Padilla MD 01/15/2021 I48.91 Unspecified atrial fibrillation Juan Miguel Abdul MD 01/15/2021 Z95.810 Presence of automatic (implantab le) cardiac defibrillator Juan Miguel Abdul MD 01/15/2021 I50.22 Chronic systolic (congestive) he art failure Jua nMiguel Abdul MD 01/15/2021 I34.0 Nonrheumatic mitral (valve) insu fficiency Juan Miguel Abdul MD 01/15/2021 I48.0 Paroxysmal atrial fibrillation W nitesh Abdul MD 01/15/2021 E11.9 Type 2 diabetes mellitus without complications Juan Miguel Abdul MD 01/15/2021 I25.5 Ischemic cardiomyopathy Juan Migeul Abdul MD 01/15/2021 E78.2 Mixed hyperlipidemia Juan Miguel loco MD 01/15/2021 Z79.4 joint terminal attack controller (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 insul in Juan Miguel Abdul MD Plan of Treatment Future Appointment(s):* 07/02/2021 3:15 pm - Jakub Padilla MD at [facility] Surgical Services * 09/05/2021 2:15 pm - Device Checks at [facility] Cardiology AT [facility] * 09/05/2021 2:15 pm - Juan Miguel Abdul MD at [facility] Cardiology AT [facility] Functional Status Description No Information Available Mental Status Description No Information Available Referrals Description No Information Available
--- OUTSIDE RECORDS SUMMARY | 2021-08-23 00:09 | CCD | Continuity of Care Document ---
Author Author Jamar CARUSO SENIOR OUTSIDE SALES REPRESENTATIVE Organization Unknown Address [address], [address] [address] Phone [phone] Care Team Providers Care Saw Edge Fuser Circular Name Role Phone Body, Isabel ZULMA AUTM [phone] Marin Montana MD AUTM [phone] Juan Miguel Abdul MD AUTM [phone] Problems Active Problems Provider Date Automatic implantable [...] CPT Code Status Date Vaccine Lot # [id number] Given 12/19/2020 Moderna Covid-19 Sars-Cov-2, mRNA, LNP-S, PF, 100 mcg/ 0.5 mL 12456 Given 11/21/2020 Moderna Covid-19 Sars-Cov-2, mRNA, LNP-S, [...] Test Result H/L Range Note Cbcadp 06/29/2021 [facility] [address] [place] [address] [phone] WBC. 6.68 x10E3/uL 4.2-12.0 1 RBC 3.63 x10E6/uL Low 4.4-6.0 HGB 10.8 g/dL Low 13.8-18.0 HCT 34.4 % Low 39-52 MCV 94.9 fL 80-98 MCH 29.8 pg 27-33 MCHC 31.4 g/dL Low 32-36 RDW 16.4 % High 11.2-15.2 PLT 155 x10E3/uL 135-420 MPV 8.0 fL 7.0-12.3 % Keesha 82.3 % High 41.0-80.0 %Lym 12.3 % 10.0-45.2 %Johnson 3.3 % 2.0-13.0 %Eos 2.0 % 0.0-8.0 %Baso 0.1 % 0.0-3.0 Neut 5.5 x10E3/uL 2.0-8.1 Lymp 0.8 x10E3/uL 0.6-3.1 Johnson 0.2 x10E3/uL 0.0-1.0 Eos 0.1 x10E3/uL 0.0-0.6 Baso 0.0 x10E3/uL 0.0-0.2 BMP-Male 06/29/2021 [facility] [address] [place] [address] [phone] Glucose 293 mg/dL High 74-106 2 BUN 54 mg/dL 6-20 3 Creatinine 1.9 mg/dL High 0.5-1.3 Sodium 138 mmol/L 136-145 Potassium 3.8 mmol/L 3.5-5.3 Chloride 109 mmol/L High 98-107 Co2 19 mEq/L Low 20-31 Anion Gap 10 mmol/L 7-16 eGFR-male 36 mL/m/1.73m - eGFR-Aa male 43 mL/m/1.73m - 4 Calcium 8.7 mg/dL Low 8.9-10.5 Laboratory test finding 06/29/2021 [facility] [address] [place] [address] [phone] Magnesium 1.7 mg/dL 1.7-2.4 Troponin, Ultra 0.020 ng/mL 0-0.047 BNP 705.8 pg/mL High 0-100 Laboratory test finding 06/11/2021 [facility] [address] [place] [address] [phone] Sars-Cov-2 Rna <pending> Laboratory test finding 03/28/2021 [facility] [address] [place] [address] [phone] BNP 1170.4 pg/mL High 0-100 5 Venipuncture DONE - 6 CMP-Male W/LDH,Phosphorus,Uric 02/21/2021 [facility] [address] [place] [address] [phone] LDH 252 U/L High 120-246 Phosphorus 4.1 mg/dL 2.7-4.5 7 Uric Acid 8.5 mg/dL High 2.6-7.2 CMP-Male 02/21/2021 [facility] [address] [place] [address] [phone] Glucose 238 mg/dL High 74-106 8 BUN [...] 1.9-3.7 Calcium 9.6 mg/dL 8.9-10.5 Cbcadp 02/21/2021 [facility] [address] [place] [address] [phone] WBC. 6.06 x10E3/uL 4.2-12.0 RBC 3.93 x10E6/uL Low 4.4-6.0 HGB 12.1 g/dL Low 13.8-18.0 HCT 39.5 % 39-52 MCV 100.5 fL High 80-98 MCH 30.8 pg 27-33 MCHC 30.7 g/dL Low 32-36 RDW 18.2 % High 11.2-15.2 PLT 157 x10E3/uL 135-420 MPV 8.5 fL 7.0-12.3 % Keesha 66.8 % 41.0-80.0 %Lym 23.1 % 10.0-45.2 %Johnson 7.2 % 2.0-13.0 %Eos 2.8 % 0.0-8.0 %Baso 0.2 % 0.0-3.0 Neut 4.1 x10E3/uL 2.0-8.1 Lymp 1.4 x10E3/uL 0.6-3.1 Johnson 0.4 x10E3/uL 0.0-1.0 Eos 0.2 x10E3/uL 0.0-0.6 Baso 0.0 x10E3/uL 0.0-0.2 Laboratory test finding 02/21/2021 [facility] [address] [place] [address] [phone] TSH3 3.622 mIU/ml 0.350-5.500 Free T4 1.66 ng/dL 0.89-1.80 BNP 2118.0 pg/mL 0-100 14 Venipuncture DONE - 1 Labprint and transmitted 3:4 4pm 06/29/2021 ak 2 [place] [employer] [place] (ADA) Recommended Range is [...] SST Drawn as Extra. 7 02/28/2020-According to Siemjhonny s - Blood samples from some patients with monoclonal gammopathies may produce falsely elevated phosphorous results with this assay. 8 [place] [employer] n (ADA) Recommended Range is 65-99 mg/dL 9 Results Confirmed by Repeat Analysis. Results faxed at [phone] 02/22/21 kk 10 Results Confirmed by Repeat Analysis. 11 Normal Kidney Function or Mi ld Disease GFR >59 mL/min/1.73m2 Chronic Kidney Disease GFR 15-59 mL/min/1.73m2 Renal Failure GFR <15 mL/min/1.73m2 12 Effective 03/22/2017: [facility] has indicated interference with the drugs sulfasalazine and sulfapyridine. They suggest collection should occur prior to drug administration due to falsely depressed results. 13 Results may reflect a potent ial interference in Total Protein results in patients receiving dextran as blood volume expanders. 14 Results Confirmed by Repeat Analysis. Results faxed at 1039 02/22/21 kk called to Xuan at 1039 02/22/21 Procedures Date Code Description Status 06/29/2021 25786 Office/Outpatient Established Mo d MDM 30-39 Min Completed 06/15/2021 26803 I & D Hematoma Completed 05/30/2021 47505 Office/Outpatient Established Mo d MDM 30-39 Min Completed 05/30/2021 79425 Electrocardiogram Complete Compl eted 04/18/2021 14735 TCM-Mod Completed 04/14/2021 15515 Hospital Subsequent Care Level 2 Completed 04/13/2021 55523 Hospital Subsequent Care Level 2 Completed 04/13/2021 65262 Electrocardiogram Interpretation & Report Only Completed 04/13/2021 15181 Cardioversion, Elective, Externa l Completed 04/12/2021 60807 Hospital Initial Care Level 1 Co mpleted 03/28/2021 96578 TCM-Mod Completed 03/28/2021 79643 Single Lead Implant Cardioverter -Defibrillator Completed 03/19/2021 81118 Hospital Subsequent Care Level 2 Completed 03/18/2021 31612 Hospital Subsequent Care Level 2 Completed 03/16/2021 04152 Hospital Initial Care Level 1 Co mpleted 03/16/2021 16891 Electrocardiogram Interpretation & Report Only Completed 03/13/2021 10320 Implant For Incisional/Ventral H ernia Repair Completed 03/13/2021 66046 Repair Hernia Incisional/Ventral Recurrent, Reducible Completed 03/13/2021 35325 Remove Support Implant Deep Comp leted 02/21/2021 85302 Office/Outpatient Established Mo d MDM 30-39 Min Completed 02/21/2021 84906 Electrocardiogram Complete Compl eted 2021 92230 Office/Outpatient Established Mo d MDM 30-39 Min Completed 01/15/2021 72254 Office/Outpatient Established Mo d MDM 30-39 Min Completed 01/15/2021 63262 Electrocardiogram Complete Compl eted Medical Devices Description No Information Available Encounters Type Date Location Provider Dx Diagnosis Office Visit 06/29/2021 2:45p [facility] [place] Renée salgado NP Office Visit 06/25/2021 10:00a [facility] Surgical Services Katelin mckeon, SENIOR OUTSIDE SALES REPRESENTATIVE Z48.817 Encntr for surgical aftcr fol surgery on the skin, subcu L76.34 Postproc seroma of skin, sub cu following other procedure Office Visit 05/30/2021 11:15a [facility] Surgical Services Johnathan Cornejo L76.34 Postproc seroma of skin, subcu following other procedure K43.2 Incisional hernia without ob struction or gangrene Z48.815 Encntr for surgical aftcr fo llowing surgery on the dgstv sys Office Visit 05/30/2021 9:45a [facility] Juan Miguel Abdul MD R07.89 Other chest pain Z95.810 Presence of automatic (impla ntable) cardiac defibrillator 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 I50.32 Chronic diastolic (congestiv e) heart failure I48.0 Paroxysmal atrial fibrillati on I36.1 Nonrheumatic tricuspid (valv e) insufficiency 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 E11.9 Type 2 diabetes mellitus wit hout complications I11.0 Hypertensive heart disease w ith heart failure Z79.4 nursing home (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 i nsulin Office Visit 04/30/2021 10:30a [facility] Surgical Services Katelin mckeon, SENIOR OUTSIDE SALES REPRESENTATIVE Z48.815 Encntr for surgical aftcr following surg terri on the dgstv sys L76.34 Postproc seroma of skin, sub cu following other procedure K43.2 Incisional hernia without ob struction or gangrene Office Visit 04/18/2021 9:30a [facility] Juan Miguel Abdul MD Z95.810 Presence of automatic (impla ntable) cardiac defibrillator I50.23 Acute on chronic systolic (c ongestive) heart failure I25.5 Ischemic cardiomyopathy I34.0 Nonrheumatic mitral (valve) insufficiency E11.9 Type 2 diabetes mellitus wit hout complications Office Visit 04/18/2021 2:00p [facility] Surgical Services Katelin mckeon NP L76.34 Postproc seroma of skin, subcu following other procedure K43.2 Incisional hernia without ob struction or gangrene Z48.815 Encntr for surgical aftcr fo llowing surgery on the [facility] sys Z82.49 Family hx of ischem heart di s and oth dis of the [facility] sys Office Visit 04/14/2021 3:08a [facility] Surgical Services Pako brewster MD L76.34 Postproc seroma of skin, subcu following other procedure Office Visit 04/14/2021 3:11a [facility] Cardiology [facility] Pan jara MD I50.22 Chronic systolic (congestive) heart fail ure I48.92 Unspecified atrial flutter 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 N18.9 Chronic kidney disease, unsp ecified L76.34 Postproc seroma of skin, sub cu following other procedure 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 Office Visit 04/13/2021 10:12a [facility] Juan Miguel murray MD I48.92 Unspecified atrial flutter I50.9 Heart failure, unspecified N18.9 Chronic kidney disease, unsp ecified L76.34 Postproc seroma of skin, sub cu following other procedure Office Visit 04/12/2021 9:24a [facility] Juan Miguel murray MD I50.9 Heart failure, unspecified I48.91 Unspecified atrial fibrillat ion I44.0 Atrioventricular block, firs t degree R10.9 Unspecified abdominal pain Office Visit 04/03/2021 11:00a [facility] Surgical Services Katelin Zaragoza NP K43.2 Incisional hernia without obstruction or gangrene Z48.815 Encntr for surgical aftcr fo llowing surgery on the [facility] sys Office Visit 03/28/2021 2:30p [facility] Surgical Services Katelin Zaragoza NP K43.2 Incisional hernia without obstruction or gangrene Z48.815 Encntr for surgical aftcr fo llowing surgery on the stv sys Office Visit 03/28/2021 10:15a [facility] [place] Vince Garcia, ZULMA I25.10 Athscl heart disease of [place] coronary artery w/o ang pctrs I48.91 Unspecified atrial fibrillat ion Z95.810 Presence of automatic (impla ntable) cardiac defibrillator I42.0 Dilated cardiomyopathy I50.20 Unspecified systolic (conges tive) heart failure N17.9 Acute kidney failure, unspec ified Z82.49 Family hx of ischem heart di s and oth dis of the circ sys Z87.891 Personal history of nicotine dependence 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 Office Visit 03/21/2021 3:33a [facility] Johnathan Cornejo Office Visit 03/20/2021 2:43a [facility] Johnathan Cornejo Office Visit 03/19/2021 2:40a [facility] Johnathan Cornejo Office Visit 03/19/2021 2:36a [facility] Ramón jurado MD I25.10 Athscl heart disease of [place] coronary artery w/o ang pctrs I50.20 Unspecified [...] ntable) cardiac defibrillator Office Visit 03/18/2021 2:26a [facility] Johnathan Corcoran I48.91 Unspecified atrial fibrillation I42.0 Dilated cardiomyopathy Z79.01 nursing home (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 a 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 Office Visit 03/17/2021 2:29a [facility] Surgical Services Kriss Coon MD Office Visit 03/16/2021 2:32a [facility] Ramón Hong MD N17.9 Acute kidney failure, unspecified R34 Anuria and oliguria F17.200 Nicotine dependence, unspeci fied, uncomplicated Office Visit 03/16/2021 2:30a [facility] Johnathan Cornejo Office Visit 03/15/2021 2:33a [facility] Kraig garsia MD Office Visit 03/14/2021 2:41a [facility] Johnathan Cornejo Office Visit 02/21/2021 10:30a [facility] Juan Miguel Abdul MD I47.1 Supraventricular tachycardia I25.5 Ischemic cardiomyopathy I48.91 Unspecified atrial fibrillat ion R06.02 Shortness of breath Office Visit 2021 10:00a [facility] Johnathan Cornejo K43.2 Incisional hernia without obstruction or gangrene Z79.01 nursing home (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 a 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 Office Visit 01/15/2021 10:15a [facility] [place] Juan Miguel alexis MD I48.91 Unspecified atrial fibrillation Z95.810 Presence of automatic (impla ntable) cardiac defibrillator I50.22 Chronic systolic (congestive ) heart failure I34.0 Nonrheumatic mitral (valve) insufficiency I48.0 Paroxysmal atrial fibrillati on E11.9 Type 2 diabetes mellitus wit hout complications I25.5 Ischemic cardiomyopathy E78.2 Mixed hyperlipidemia Z79.4 nursing home (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 i nsulin Assessments Date Code Description Provider 06/29/2021 I50.32 Chronic diastolic (congestive) h eart failure [facility] 06/29/2021 R06.02 Shortness of breath [facility] 06/29/2021 R07.89 Other chest pain [facility] 06/25/2021 Z48.817 Encounter for surgic al aftercare following surgery on the skin and subcutaneous tissue Katelin Zaragoza NP 06/25/2021 L76.34 Postoperative seroma Katelin stover NP 06/15/2021 L76.34 Postprocedural serom a of skin and subcutaneous tissue following other procedure Jakub Padilla MD 06/15/2021 Z79.899 Other assisted (current) drug t herapy Jakub Padilla MD 06/15/2021 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[place] coronary artery without angina pectoris Jakub Padilla MD 06/15/2021 E11.9 Type 2 diabetes mellitus without complications Jakub Padilla MD 06/15/2021 I10 Essential (primary) hypertension Jakub Padilla MD 06/15/2021 Z79.84 nursing home (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 oral hypoglycemic drugs Jakub Padilla MD 05/30/2021 R07.89 Other chest pain Juan Miguel Abdul MD 05/30/2021 L76.34 Postoperative seroma Jakub alcantar MD 05/30/2021 Z95.810 Presence of automatic (implantab le) cardiac defibrillator Juan Miguel Abdul MD 05/30/2021 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[place] coronary artery without angina pectoris Juan Miguel [...] digestive system Jakub Padilla MD 05/30/2021 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ntic oagulants Juan Miguel Abdul MD 05/30/2021 E11.9 Type 2 diabetes mellitus without complications Juan Miguel Abdul MD 05/30/2021 I11.0 Hypertensive heart disease with heart failure Juan Miguel Abdul MD 05/30/2021 Z79.4 nursing home (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 insul in Juan Miguel [...] 04/14/2021 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[place] coronary artery without angina pectoris Pan Ambrose [...] 03/28/2021 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[place] coronary artery without angina pectoris Camden Garcia NP 03/28/2021 I48.91 Unspecified atrial fibrillation Camden Garcia NP 03/28/2021 Z95.810 Presence of automatic (implantab le) cardiac defibrillator Camden Garcia NP 03/28/2021 [facility]42.0 [facility] I42.0 Dilated cardiomyopathy Vince david Garcia NP 03/28/2021 I50.20 Unspecified systolic (congestive ) heart failure Camden Garcia NP 03/28/2021 N17.9 Acute kidney failure, unspecifie d Florentinnelidavid Garcia, ZULMA 03/28/2021 Z82.49 Family history of is chemic heart disease and other diseases of the circulatory system Camden Garcia NP 03/28/2021 Z95.810 Presence of automatic (implantab le) cardiac defibrillator [facility] 03/28/2021 Z87.891 Personal history of nicotine dep endence Camden Garcia NP 03/28/2021 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ntic oagulants Camden Garcia NP 03/28/2021 I42.0 [facility] 03/28/2021 I50.20 Unspecified systolic (congestive ) heart failure [facility] 03/28/2021 Z95.810 Presence of automatic (implantab le) cardiac defibrillator [facility] 03/28/2021 I50.20 Unspecified systolic (congestive ) heart failure [facility] 03/28/2021 Z95.810 Presence of automatic (implantab le) cardiac defibrillator Device Checks 03/28/2021 I42.0 Dilated cardiomyopathy Device Ch ks 03/19/2021 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[place] coronary artery without angina pectoris Ramón Hong [...] Dilated cardiomyopathy Manish gil MD 03/18/2021 Z79.01 nursing home (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 antic oagulants Manish Pacheco [...] ominal wall Jakub Padilla MD 2021 Z79.01 nursing home (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 antic oagulants Jakub Padilla MD 01/15/2021 I48.91 Unspecified atrial fibrillation Juan Miguel Abdul MD 01/15/2021 Z95.810 Presence of automatic (implantab le) cardiac defibrillator Juan Miguel bAdul MD 01/15/2021 I50.22 Chronic systolic (congestive) he art failure Juan Miguel Abdul MD 01/15/2021 I34.0 Nonrheumatic mitral (valve) insu fficiency Juan Miguel Abdul MD 01/15/2021 I48.0 Paroxysmal atrial fibrillation W nitesh Abdul MD 01/15/2021 E11.9 Type 2 diabetes mellitus without complications Juan Miguel Abdul MD 01/15/2021 I25.5 Ischemic cardiomyopathy Juan Miguel Abdul MD 01/15/2021 E78.2 Mixed hyperlipidemia Juan Miguel loco MD 01/15/2021 Z79.4 nursing home (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 insul in Juan Miguel Abdul MD Plan of Treatment Future Appointment(s):* 07/02/2021 3:15 pm - Jakub Padilla MD at [facility] Surgical Services * 09/05/2021 2:15 pm - Device Checks at [facility] * 09/05/2021 2:15 pm - Juan Miguel Abdul MD at [facility] Functional Status Description No Information Available Mental Status Description No Information Available Referrals Description No Information Available
--- OUTSIDE RECORDS SUMMARY | 2021-08-23 00:09 | CCD | Continuity of Care Document ---
Author Author Jamar CARUSO [employer] Organization Unknown Address [address], [address] [address] Phone [phone] Care Team Providers Care Slag Mixer Name Role Phone Body, Isabel ZULMA AUTM [phone] Marin Montana MD AUTM [phone] Juan Miguel Abdul MD AUTM [phone] Problems Active Problems Provider Date Automatic implantable [...] CPT Code Status Date Vaccine Lot # [id number] Given 12/19/2020 Moderna Covid-19 Sars-Cov-2, mRNA, LNP-S, PF, 100 mcg/ 0.5 mL 86128 Given 11/21/2020 Moderna Covid-19 Sars-Cov-2, mRNA, LNP-S, [...] Test Result H/L Range Note Cbcadp 06/29/2021 [facility] [address] [place] [address] [phone] WBC. 6.68 x10E3/uL 4.2-12.0 1 RBC 3.63 x10E6/uL Low 4.4-6.0 HGB 10.8 g/dL Low 13.8-18.0 HCT 34.4 % Low 39-52 MCV 94.9 fL 80-98 MCH 29.8 pg 27-33 MCHC 31.4 g/dL Low 32-36 RDW 16.4 % High 11.2-15.2 PLT 155 x10E3/uL 135-420 MPV 8.0 fL 7.0-12.3 % Keesha 82.3 % High 41.0-80.0 %Lym 12.3 % 10.0-45.2 %[place] 3.3 % 2.0-13.0 %Eos 2.0 % 0.0-8.0 %Baso 0.1 % 0.0-3.0 Neut 5.5 x10E3/uL 2.0-8.1 Lymp 0.8 x10E3/uL 0.6-3.1 [place] 0.2 x10E3/uL 0.0-1.0 Eos 0.1 x10E3/uL 0.0-0.6 Baso 0.0 x10E3/uL 0.0-0.2 BMP-Male 06/29/2021 [facility] [address] [place] [address] [phone] Glucose 293 mg/dL High 74-106 2 BUN 54 mg/dL 6-20 3 Creatinine 1.9 mg/dL High 0.5-1.3 Sodium 138 mmol/L 136-145 Potassium 3.8 mmol/L 3.5-5.3 Chloride 109 mmol/L High 98-107 Co2 19 mEq/L Low 20-31 Anion Gap 10 mmol/L 7-16 eGFR-male 36 mL/m/1.73m - eGFR-Aa male 43 mL/m/1.73m - 4 Calcium 8.7 mg/dL Low 8.9-10.5 Laboratory test finding 06/29/2021 [facility] [address] [place] [address] [phone] Magnesium 1.7 mg/dL 1.7-2.4 Troponin, Ultra 0.020 ng/mL 0-0.047 BNP 705.8 pg/mL High 0-100 Laboratory test finding 06/11/2021 [facility] [address] [place] [address] [phone] Sars-Cov-2 Rna <pending> Laboratory test finding 03/28/2021 [facility] [address] [place] [address] [phone] BNP 1170.4 pg/mL High 0-100 5 Venipuncture DONE - 6 CMP-Male W/LDH,Phosphorus,Uric 02/21/2021 [facility] [address] [place] [address] [phone] LDH 252 U/L High 120-246 Phosphorus 4.1 mg/dL 2.7-4.5 7 Uric Acid 8.5 mg/dL High 2.6-7.2 CMP-Male 02/21/2021 [facility] [address] [place] [address] [phone] Glucose 238 mg/dL High 74-106 8 BUN [...] 1.9-3.7 Calcium 9.6 mg/dL 8.9-10.5 Cbcadp 02/21/2021 [facility] [address] [place] [address] [phone] WBC. 6.06 x10E3/uL 4.2-12.0 RBC 3.93 x10E6/uL Low 4.4-6.0 HGB 12.1 g/dL Low 13.8-18.0 HCT 39.5 % 39-52 MCV 100.5 fL High 80-98 MCH 30.8 pg 27-33 MCHC 30.7 g/dL Low 32-36 RDW 18.2 % High 11.2-15.2 PLT 157 x10E3/uL 135-420 MPV 8.5 fL 7.0-12.3 % Keesha 66.8 % 41.0-80.0 %Lym 23.1 % 10.0-45.2 %[place] 7.2 % 2.0-13.0 %Eos 2.8 % 0.0-8.0 %Baso 0.2 % 0.0-3.0 Neut 4.1 x10E3/uL 2.0-8.1 Lymp 1.4 x10E3/uL 0.6-3.1 [place] 0.4 x10E3/uL 0.0-1.0 Eos 0.2 x10E3/uL 0.0-0.6 Baso 0.0 x10E3/uL 0.0-0.2 Laboratory test finding 02/21/2021 [facility] [address] [place] [address] [phone] TSH3 3.622 mIU/ml 0.350-5.500 Free T4 1.66 ng/dL 0.89-1.80 BNP 2118.0 pg/mL 0-100 14 Venipuncture DONE - 1 Labprint and transmitted 3:4 4pm 06/29/2021 ak 2 [place] [employer] (ADA) Recommended Range is [...] elevated phosphorous results with this assay. 8 [place] [employer] n (ADA) Recommended Range is 65-99 mg/dL 9 Results Confirmed by Repeat Analysis. Results faxed at 1130 02/22/21 kk 10 Results Confirmed by Repeat Analysis. 11 Normal Kidney Function or Mi ld Disease GFR >59 mL/min/1.73m2 Chronic Kidney Disease GFR 15-59 mL/min/1.73m2 Renal Failure GFR <15 mL/min/1.73m2 12 Effective 03/22/2017: [employer] has indicated interference with the drugs sulfasalazine [...] 02/22/21 Procedures Date Code Description Status 06/29/2021 01233 Office/Outpatient Established Mo d MDM 30-39 Min Completed 06/15/2021 03509 I & D Hematoma Completed 05/30/2021 07670 Office/Outpatient Established Mo d MDM 30-39 Min Completed 05/30/2021 37488 Electrocardiogram Complete Compl eted 04/18/2021 86333 TCM-Mod Completed 04/14/2021 73519 Hospital Subsequent Care Level 2 Completed 04/13/2021 47037 Hospital Subsequent Care Level 2 Completed 04/13/2021 36265 Electrocardiogram Interpretation & Report Only Completed 04/13/2021 90659 Cardioversion, Elective, Externa l Completed 04/12/2021 02779 Hospital Initial Care Level 1 Co mpleted 03/28/2021 47501 TCM-Mod Completed 03/28/2021 28469 Single Lead Implant Cardioverter -Defibrillator Completed 03/19/2021 30872 Hospital Subsequent Care Level 2 Completed 03/18/2021 11842 Hospital Subsequent Care Level 2 Completed 03/16/2021 93156 Hospital Initial Care Level 1 Co mpleted 03/16/2021 54661 Electrocardiogram Interpretation & Report Only Completed 03/13/2021 85569 Implant For Incisional/Ventral H ernia Repair Completed 03/13/2021 60569 Repair Hernia Incisional/Ventral Recurrent, Reducible Completed 03/13/2021 87351 Remove Support Implant Deep Comp leted 02/21/2021 36758 Office/Outpatient Established Mo d MDM 30-39 Min Completed 02/21/2021 10497 Electrocardiogram Complete Compl eted 2021 44089 Office/Outpatient Established Mo d MDM 30-39 Min Completed 01/15/2021 28840 Office/Outpatient Established Mo d MDM 30-39 Min Completed 01/15/2021 41258 Electrocardiogram Complete Compl eted Medical Devices Description No Information Available Encounters Type Date Location Provider Dx Diagnosis Office Visit 06/29/2021 2:45p [facility] Renée salgado NP Office Visit 06/25/2021 10:00a [facility] Surgical Services Katelin mckeon, [employer] Z48.817 Encntr for surgical aftcr fol surgery on the skin, subcu L76.34 Postproc seroma of skin, sub cu following other procedure Office Visit 05/30/2021 11:15a [facility] Surgical Services Johnathan Cornejo L76.34 Postproc seroma of skin, subcu following other procedure K43.2 Incisional hernia without ob struction or gangrene Z48.815 Encntr for surgical aftcr fo llowing surgery on the dgstv sys Office Visit 05/30/2021 9:45a [facility] Juan Miguel Abdul MD R07.89 Other chest pain Z95.810 Presence of automatic (impla ntable) cardiac defibrillator 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 I50.32 Chronic diastolic (congestiv e) heart failure I48.0 Paroxysmal atrial fibrillati on I36.1 Nonrheumatic tricuspid (valv e) insufficiency Z79.01 technician terminal and repeater (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 a 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 E11.9 Type 2 diabetes mellitus wit hout complications I11.0 Hypertensive heart disease w ith heart failure Z79.4 intermediate (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 i nsulin Office Visit 04/30/2021 10:30a [facility] Surgical Services Katelin mckeon, [employer] Z48.815 Encntr for surgical aftcr following surg terri on the dgstv sys L76.34 Postproc seroma of skin, sub cu following other procedure K43.2 Incisional hernia without ob struction or gangrene Office Visit 04/18/2021 9:30a [facility] Juan Miguel Abdul MD Z95.810 Presence of automatic (impla ntable) cardiac defibrillator I50.23 Acute on chronic systolic (c ongestive) heart failure I25.5 Ischemic cardiomyopathy I34.0 Nonrheumatic mitral (valve) insufficiency E11.9 Type 2 diabetes mellitus wit hout complications Office Visit 04/18/2021 2:00p [facility] Surgical Services Katelin mckeon NP L76.34 Postproc seroma of skin, subcu following other procedure K43.2 Incisional hernia without ob struction or gangrene Z48.815 Encntr for surgical aftcr fo llowing surgery on the [facility] sys Z82.49 Family hx of ischem heart di s and oth dis of the [facility] sys Office Visit 04/14/2021 3:08a [facility] Surgical Services Pako brewster MD L76.34 Postproc seroma of skin, subcu following other procedure Office Visit 04/14/2021 3:11a [facility] Cardiology [facility] Pan jara MD I50.22 Chronic systolic (congestive) heart fail ure I48.92 Unspecified atrial flutter 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 N18.9 Chronic kidney disease, unsp ecified L76.34 Postproc seroma of skin, sub cu following other procedure 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 Office Visit 04/13/2021 10:12a [facility] Cardiology [facility] Juan Miguel murray MD I48.92 Unspecified atrial flutter I50.9 Heart failure, unspecified N18.9 Chronic kidney disease, unsp ecified L76.34 Postproc seroma of skin, sub cu following other procedure Office Visit 04/12/2021 9:24a [facility] Cardiology [facility] Juan Miguel murray MD I50.9 Heart failure, unspecified I48.91 Unspecified atrial fibrillat ion I44.0 Atrioventricular block, firs t degree R10.9 Unspecified abdominal pain Office Visit 04/03/2021 11:00a [facility] Surgical Services Katelin Zaragoza NP K43.2 Incisional hernia without obstruction or gangrene Z48.815 Encntr for surgical aftcr fo llowing surgery on the [facility] sys Office Visit 03/28/2021 2:30p [facility] Surgical Services Katelin Zaragoza NP K43.2 Incisional hernia without obstruction or gangrene Z48.815 Encntr for surgical aftcr fo llowing surgery on the stv sys Office Visit 03/28/2021 10:15a [facility] Vince Garcia, ZULMA I25.10 Athscl heart disease of [place] coronary artery w/o ang pctrs I48.91 Unspecified atrial fibrillat ion Z95.810 Presence of automatic (impla ntable) cardiac defibrillator I42.0 Dilated cardiomyopathy I50.20 Unspecified systolic (conges tive) heart failure N17.9 Acute kidney failure, unspec ified Z82.49 Family hx of ischem heart di s and oth dis of the circ sys Z87.891 Personal history of nicotine dependence Z79.01 technician terminal and repeater (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 a 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 Office Visit 03/21/2021 3:33a [facility] Johnathan Cornejo Office Visit 03/20/2021 2:43a [facility] Johnathan Cornejo Office Visit 03/19/2021 2:40a [facility] Johnathan Cornejo Office Visit 03/19/2021 2:36a [facility] Cardiology [facility] Ramón jurado MD I25.10 Athscl heart disease of [place] coronary artery w/o ang pctrs I50.20 Unspecified [...] ntable) cardiac defibrillator Office Visit 03/18/2021 2:26a [facility] Cardiology [facility] Johnathan Corcoran I48.91 Unspecified atrial fibrillation I42.0 Dilated cardiomyopathy Z79.01 intermediate (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 a 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 Office Visit 03/17/2021 2:29a [facility] Surgical Services Kriss Coon MD Office Visit 03/16/2021 2:32a [facility] Cardiology [facility] Ramón Hong MD N17.9 Acute kidney failure, unspecified R34 Anuria and oliguria F17.200 Nicotine dependence, unspeci fied, uncomplicated Office Visit 03/16/2021 2:30a [facility] Johnathan Cornejo Office Visit 03/15/2021 2:33a [facility] Kraig garsia MD Office Visit 03/14/2021 2:41a [facility] Johnathan Cornejo Office Visit 02/21/2021 10:30a [facility] Juan Miguel Abdul MD I47.1 Supraventricular tachycardia I25.5 Ischemic cardiomyopathy I48.91 Unspecified atrial fibrillat ion R06.02 Shortness of breath Office Visit 2021 10:00a [facility] Johanthan Cornejo K43.2 Incisional hernia without obstruction or gangrene Z79.01 intermediate (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 a 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 Office Visit 01/15/2021 10:15a [facility] Juan Miguel alexis MD I48.91 Unspecified atrial fibrillation Z95.810 Presence of automatic (impla ntable) cardiac defibrillator I50.22 Chronic systolic (congestive ) heart failure I34.0 Nonrheumatic mitral (valve) insufficiency I48.0 Paroxysmal atrial fibrillati on E11.9 Type 2 diabetes mellitus wit hout complications I25.5 Ischemic cardiomyopathy E78.2 Mixed hyperlipidemia Z79.4 intermediate (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 i nsulin Assessments Date Code Description Provider 06/29/2021 I50.32 Chronic diastolic (congestive) h eart failure [facility] 06/29/2021 R06.02 Shortness of breath [facility] 06/29/2021 R07.89 Other chest pain [facility] 06/25/2021 Z48.817 Encounter for surgic al aftercare following surgery on the skin and subcutaneous tissue Katelin Zaragoza NP 06/25/2021 L76.34 Postoperative seroma Katelin stover NP 06/15/2021 L76.34 Postprocedural serom a of skin and subcutaneous tissue following other procedure Jakub Padilla MD 06/15/2021 Z79.899 Other senior living (current) drug t herapy Jakub Padilla MD 06/15/2021 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 without angina pectoris Jakub Padilla MD 06/15/2021 E11.9 Type 2 diabetes mellitus without complications Jakub Padilla MD 06/15/2021 I10 Essential (primary) hypertension Jakub Padilla MD 06/15/2021 Z79.84 intermediate (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 oral hypoglycemic drugs Jakub Padilla MD 05/30/2021 R07.89 Other chest pain Juan Miguel Abdul MD 05/30/2021 L76.34 Postoperative seroma Jakub alcantar MD 05/30/2021 Z95.810 Presence of automatic (implantab le) cardiac defibrillator Juan Miguel Abdul MD 05/30/2021 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 without angina pectoris Juan Miguel [...] digestive system Jakub Padilla MD 05/30/2021 Z79.01 technician terminal and repeater (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 antic oagulants Juan Miguel Abdul MD 05/30/2021 E11.9 Type 2 diabetes mellitus without complications Juan Miguel Abdul MD 05/30/2021 I11.0 Hypertensive heart disease with heart failure Juan Miguel Abdul MD 05/30/2021 Z79.4 intermediate (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 insul in Juan Miguel [...] 04/14/2021 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 without angina pectoris Pan Ambrose [...] Chronic kidney disease, stage 3 unspecified Pan Amrbose MD 04/13/2021 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 [...] 03/28/2021 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 without angina pectoris Camden Garcia NP 03/28/2021 I48.91 Unspecified atrial fibrillation Camden Garcia NP 03/28/2021 Z95.810 Presence of automatic (implantab le) cardiac defibrillator Camden Garcia NP 03/28/2021 I42.0 Dilated cardiomyopathy [facility] 03/28/2021 I42.0 Dilated cardiomyopathy Vince david Garcia NP 03/28/2021 I50.20 Unspecified systolic (congestive ) heart failure Camden Garcia NP 03/28/2021 N17.9 Acute kidney failure, unspecifie d Florentinnelidavid Garcia, ZULMA 03/28/2021 Z82.49 Family history of is chemic heart disease and other diseases of the circulatory system Camden Garcia NP 03/28/2021 Z95.810 Presence of automatic (implantab le) cardiac defibrillator [facility] 03/28/2021 Z87.891 Personal history of nicotine dep endence Camden Garcia NP 03/28/2021 Z79.01 technician terminal and repeater (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 antic oagulants Camden Garcia NP 03/28/2021 I42.0 Dilated cardiomyopathy [facility] 03/28/2021 I50.20 Unspecified systolic (congestive ) heart failure [facility] 03/28/2021 Z95.810 Presence of automatic (implantab le) cardiac defibrillator [facility] 03/28/2021 I50.20 Unspecified systolic (congestive ) heart failure [facility] 03/28/2021 Z95.810 Presence of automatic (implantab le) cardiac defibrillator Device Checks 03/28/2021 I42.0 Dilated cardiomyopathy Device [facility] 03/19/2021 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 without angina pectoris Ramón Hong [...] Dilated cardiomyopathy Manish gil MD 03/18/2021 Z79.01 intermediate (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 antic oagulants Manish Pacheco [...] ominal wall Jakub Padilla MD 2021 Z79.01 intermediate (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 antic oagulants Jakub Padilla [...] hyperlipidemia Juan Miguel loco MD 01/15/2021 Z79.4 intermediate (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 insul in Juan Miguel Abdul MD Plan of Treatment Future Appointment(s):* 07/02/2021 3:15 pm - Jakub Padilla MD at [facility] Surgical Services * 09/05/2021 2:15 pm - Device Checks at [facility] Cardiology AT [facility] * 09/05/2021 2:15 pm - Juan Miguel Abdul MD at [facility] Cardiology AT [facility] Functional Status Description No Information Available Mental Status Description No Information Available Referrals Description No Information Available
--- OUTSIDE RECORDS SUMMARY | 2021-08-23 00:09 | CCD | Continuity of Care Document ---
Author Author Jamar CARUSO PHOTORESIST CONTACT PRINTER Organization Unknown Address [address], [address] [address] Phone [phone] Care Team Providers Care Human Resources Professional Name Role Phone Body, Isabel ZULMA AUTM [phone] Marin Montana MD AUTM [phone] Juan Miguel Abdul MD AUTM [phone] Problems Active Problems Provider Date Automatic implantable [...] CPT Code Status Date Vaccine Lot # [id number] Given 12/19/2020 Moderna Covid-19 Sars-Cov-2, mRNA, LNP-S, PF, 100 mcg/ 0.5 mL [id number] Given 11/21/2020 Moderna Covid-19 Sars-Cov-2, mRNA, LNP-S, [...] Test Result H/L Range Note Cbcadp 06/29/2021 [facility] [address] [place] [address] [phone] WBC. 6.68 x10E3/uL 4.2-12.0 1 RBC 3.63 x10E6/uL Low 4.4-6.0 HGB 10.8 g/dL Low 13.8-18.0 HCT 34.4 % Low 39-52 MCV 94.9 fL 80-98 MCH 29.8 pg 27-33 MCHC 31.4 g/dL Low 32-36 RDW 16.4 % High 11.2-15.2 PLT 155 x10E3/uL 135-420 MPV 8.0 fL 7.0-12.3 % Keesha 82.3 % High 41.0-80.0 %Lym 12.3 % 10.0-45.2 %Christian 3.3 % 2.0-13.0 %Eos 2.0 % 0.0-8.0 %Baso 0.1 % 0.0-3.0 Neut 5.5 x10E3/uL 2.0-8.1 Lymp 0.8 x10E3/uL 0.6-3.1 Christian 0.2 x10E3/uL 0.0-1.0 Eos 0.1 x10E3/uL 0.0-0.6 Baso 0.0 x10E3/uL 0.0-0.2 BMP-Male 06/29/2021 [facility] [address] [place] [address] [phone] Glucose 293 mg/dL High 74-106 2 BUN 54 mg/dL 6-20 3 Creatinine 1.9 mg/dL High 0.5-1.3 Sodium 138 mmol/L 136-145 Potassium 3.8 mmol/L 3.5-5.3 Chloride 109 mmol/L High 98-107 Co2 19 mEq/L Low 20-31 Anion Gap 10 mmol/L 7-16 eGFR-male 36 mL/m/1.73m - eGFR-Aa male 43 mL/m/1.73m - 4 Calcium 8.7 mg/dL Low 8.9-10.5 Laboratory test finding 06/29/2021 [facility] [address] [place] [address] [phone] Magnesium 1.7 mg/dL 1.7-2.4 Troponin, Ultra 0.020 ng/mL 0-0.047 BNP 705.8 pg/mL High 0-100 Laboratory test finding 06/11/2021 [facility] [address] [place] [address] [phone] Sars-Cov-2 Rna <pending> Laboratory test finding 03/28/2021 [facility] [address] [place] [address] [phone] BNP 1170.4 pg/mL High 0-100 5 Venipuncture DONE - 6 CMP-Male W/LDH,Phosphorus,Uric 02/21/2021 [facility] [address] [place] [address] [phone] LDH 252 U/L High 120-246 Phosphorus 4.1 mg/dL 2.7-4.5 7 Uric Acid 8.5 mg/dL High 2.6-7.2 CMP-Male 02/21/2021 [facility] [address] [place] [address] [phone] Glucose 238 mg/dL High 74-106 8 BUN [...] 1.9-3.7 Calcium 9.6 mg/dL 8.9-10.5 Cbcadp 02/21/2021 [facility] [address] [place] [address] [phone] WBC. 6.06 x10E3/uL 4.2-12.0 RBC 3.93 x10E6/uL Low 4.4-6.0 HGB 12.1 g/dL Low 13.8-18.0 HCT 39.5 % 39-52 MCV 100.5 fL High 80-98 MCH 30.8 pg 27-33 MCHC 30.7 g/dL Low 32-36 RDW 18.2 % High 11.2-15.2 PLT 157 x10E3/uL 135-420 MPV 8.5 fL 7.0-12.3 % Keesha 66.8 % 41.0-80.0 %Lym 23.1 % 10.0-45.2 %Christian 7.2 % 2.0-13.0 %Eos 2.8 % 0.0-8.0 %Baso 0.2 % 0.0-3.0 Neut 4.1 x10E3/uL 2.0-8.1 Lymp 1.4 x10E3/uL 0.6-3.1 Christian 0.4 x10E3/uL 0.0-1.0 Eos 0.2 x10E3/uL 0.0-0.6 Baso 0.0 x10E3/uL 0.0-0.2 Laboratory test finding 02/21/2021 [facility] [address] [place] [address] [phone] TSH3 3.622 mIU/ml 0.350-5.500 Free T4 1.66 ng/dL 0.89-1.80 BNP 2118.0 pg/mL 0-100 14 Venipuncture DONE - 1 Labprint and transmitted 3:4 4pm 06/29/2021 ak 2 [place] [employer] (ADA) Recommended Range is [...] elevated phosphorous results with this assay. 8 [place] [employer] n (ADA) Recommended Range is 65-99 mg/dL 9 Results Confirmed by Repeat Analysis. Results faxed at [phone] 02/22/21 kk 10 Results Confirmed by Repeat Analysis. 11 Normal Kidney Function or Mi ld Disease GFR >59 mL/min/1.73m2 Chronic Kidney Disease GFR 15-59 mL/min/1.73m2 Renal Failure GFR <15 mL/min/1.73m2 12 Effective 03/22/2017: CPA Exchange has indicated interference with the drugs sulfasalazine [...] 02/22/21 Procedures Date Code Description Status 06/29/2021 69102 Office/Outpatient Established Mo d MDM 30-39 Min Completed 06/15/2021 78537 I & D Hematoma Completed 05/30/2021 39324 Office/Outpatient Established Mo d MDM 30-39 Min Completed 05/30/2021 26956 Electrocardiogram Complete Compl eted 04/18/2021 31637 TCM-Mod Completed 04/14/2021 77949 Hospital Subsequent Care Level 2 Completed 04/13/2021 31885 Hospital Subsequent Care Level 2 Completed 04/13/2021 88038 Electrocardiogram Interpretation & Report Only Completed 04/13/2021 83032 Cardioversion, Elective, Externa l Completed 04/12/2021 34612 Hospital Initial Care Level 1 Co mpleted 03/28/2021 62922 TCM-Mod Completed 03/28/2021 43636 Single Lead Implant Cardioverter -Defibrillator Completed 03/19/2021 77703 Hospital Subsequent Care Level 2 Completed 03/18/2021 66914 Hospital Subsequent Care Level 2 Completed 03/16/2021 99411 Hospital Initial Care Level 1 Co mpleted 03/16/2021 67082 Electrocardiogram Interpretation & Report Only Completed 03/13/2021 93437 Implant For Incisional/Ventral H ernia Repair Completed 03/13/2021 58396 Repair Hernia Incisional/Ventral Recurrent, Reducible Completed 03/13/2021 09849 Remove Support Implant Deep Comp leted 02/21/2021 36149 Office/Outpatient Established Mo d MDM 30-39 Min Completed 02/21/2021 76595 Electrocardiogram Complete Compl eted 2021 88420 Office/Outpatient Established Mo d MDM 30-39 Min Completed 01/15/2021 85264 Office/Outpatient Established Mo d MDM 30-39 Min Completed 01/15/2021 48557 Electrocardiogram Complete Compl eted Medical Devices Description No Information Available Encounters Type Date Location Provider Dx Diagnosis Office Visit 06/29/2021 2:45p [facility] Cardiology AT [place] Renée salgado NP Office Visit 06/25/2021 10:00a [facility] Surgical Services Katelin mckeon, PHOTORESIST CONTACT PRINTER Z48.817 Encntr for surgical aftcr fol surgery on the skin, subcu L76.34 Postproc seroma of skin, sub cu following other procedure Office Visit 05/30/2021 11:15a [facility] Surgical Services Johnathan Cornejo L76.34 Postproc seroma of skin, subcu following other procedure K43.2 Incisional hernia without ob struction or gangrene Z48.815 Encntr for surgical aftcr fo llowing surgery on the dgstv sys Office Visit 05/30/2021 9:45a [facility] Cardiology AT [facility] Juan Miguel Abdul MD R07.89 Other chest pain Z95.810 Presence of automatic (impla ntable) cardiac defibrillator 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 I50.32 Chronic diastolic (congestiv e) heart failure I48.0 Paroxysmal atrial fibrillati on I36.1 Nonrheumatic tricuspid (valv e) insufficiency 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 E11.9 Type 2 diabetes mellitus wit hout complications I11.0 Hypertensive heart disease w ith heart failure Z79.4 long-term (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 i nsulin Office Visit 04/30/2021 10:30a [facility] Surgical Services Katelin mckeon, PHOTORESIST CONTACT PRINTER Z48.815 Encntr for surgical aftcr following surg terri on the dgstv sys L76.34 Postproc seroma of skin, sub cu following other procedure K43.2 Incisional hernia without ob struction or gangrene Office Visit 04/18/2021 9:30a [facility] Cardiology AT [facility] Juan Miguel Abdul MD Z95.810 Presence of automatic (impla ntable) cardiac defibrillator I50.23 Acute on chronic systolic (c ongestive) heart failure I25.5 Ischemic cardiomyopathy I34.0 Nonrheumatic mitral (valve) insufficiency E11.9 Type 2 diabetes mellitus wit hout complications Office Visit 04/18/2021 2:00p [facility] Surgical Services Katelin mckeon NP L76.34 Postproc seroma of skin, subcu following other procedure K43.2 Incisional hernia without ob struction or gangrene Z48.815 Encntr for surgical aftcr fo llowing surgery on the [facility] sys Z82.49 Family hx of ischem heart di s and oth dis of the [facility] sys Office Visit 04/14/2021 3:08a [facility] Surgical Services Pako brewster MD L76.34 Postproc seroma of skin, subcu following other procedure Office Visit 04/14/2021 3:11a [facility] Cardiology [facility] Pan jara MD I50.22 Chronic systolic (congestive) heart fail ure I48.92 Unspecified atrial flutter 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 N18.9 Chronic kidney disease, unsp ecified L76.34 Postproc seroma of skin, sub cu following other procedure 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 Office Visit 04/13/2021 10:12a [facility] Cardiology [facility] Juan Miguel murray MD I48.92 Unspecified atrial flutter I50.9 Heart failure, unspecified N18.9 Chronic kidney disease, unsp ecified L76.34 Postproc seroma of skin, sub cu following other procedure Office Visit 04/12/2021 9:24a [facility] Cardiology [facility] Juan Miguel murray MD I50.9 Heart failure, unspecified I48.91 Unspecified atrial fibrillat ion I44.0 Atrioventricular block, firs t degree R10.9 Unspecified abdominal pain Office Visit 04/03/2021 11:00a [facility] Surgical Services Katelin Zaragoza NP K43.2 Incisional hernia without obstruction or gangrene Z48.815 Encntr for surgical aftcr fo llowing surgery on the [facility] sys Office Visit 03/28/2021 2:30p [facility] Surgical Services Katelin Zaragoza NP K43.2 Incisional hernia without obstruction or gangrene Z48.815 Encntr for surgical aftcr fo llowing surgery on the stv sys Office Visit 03/28/2021 10:15a [facility] Cardiology AT [place] Vince Garcia, ZULMA I25.10 Athscl heart disease of algaaci[place] coronary artery w/o ang pctrs I48.91 Unspecified atrial fibrillat ion Z95.810 Presence of automatic (impla ntable) cardiac defibrillator I42.0 Dilated cardiomyopathy I50.20 Unspecified systolic (conges tive) heart failure N17.9 Acute kidney failure, unspec ified Z82.49 Family hx of ischem heart di s and oth dis of the circ sys Z87.891 Personal history of nicotine dependence 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 Office Visit 03/21/2021 3:33a [facility] Jhonathan Cornejo Office Visit 03/20/2021 2:43a [facility] Johnathan Cornejo Office Visit 03/19/2021 2:40a [facility] Johnathan Cornejo Office Visit 03/19/2021 2:36a [facility] Cardiology [facility] Ramón jurado MD I25.10 Athscl heart disease of algaaciq coronary artery w/o ang pctrs I50.20 Unspecified [...] ntable) cardiac defibrillator Office Visit 03/18/2021 2:26a [facility] Cardiology [facility] Johnathan Corcoran I48.91 Unspecified atrial fibrillation I42.0 Dilated cardiomyopathy Z79.01 long-term (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 a 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 Office Visit 03/17/2021 2:29a [facility] Surgical Services Kriss Coon MD Office Visit 03/16/2021 2:32a [facility] Cardiology [facility] Ramón Hong MD N17.9 Acute kidney failure, unspecified R34 Anuria and oliguria F17.200 Nicotine dependence, unspeci fied, uncomplicated Office Visit 03/16/2021 2:30a [facility] Johnathan Cornejo Office Visit 03/15/2021 2:33a [facility] Kraig garsia MD Office Visit 03/14/2021 2:41a [facility] Johnathan Cornejo Office Visit 02/21/2021 10:30a [facility] Juan Miguel Abdul MD I47.1 Supraventricular tachycardia I25.5 Ischemic cardiomyopathy I48.91 Unspecified atrial fibrillat ion R06.02 Shortness of breath Office Visit 2021 10:00a [facility] Johnathan Cornejo K43.2 Incisional hernia without obstruction or gangrene Z79.01 long-term (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 a 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 Office Visit 01/15/2021 10:15a [facility] [place] Juan Miguel alexis MD I48.91 Unspecified atrial fibrillation Z95.810 Presence of automatic (impla ntable) cardiac defibrillator I50.22 Chronic systolic (congestive ) heart failure I34.0 Nonrheumatic mitral (valve) insufficiency I48.0 Paroxysmal atrial fibrillati on E11.9 Type 2 diabetes mellitus wit hout complications I25.5 Ischemic cardiomyopathy E78.2 Mixed hyperlipidemia Z79.4 long-term (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 i nsulin Assessments Date Code Description Provider 06/29/2021 I50.32 Chronic diastolic (congestive) h eart failure [facility] 06/29/2021 R06.02 Shortness of breath [...] procedure Jakub Padilla MD 06/15/2021 Z79.899 Other alf (current) drug t herapy Jakub Padilla MD 06/15/2021 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 Jakub Padilla MD 06/15/2021 E11.9 Type 2 diabetes mellitus without complications Jakub Padilla MD 06/15/2021 I10 Essential (primary) hypertension Jakub Padilla MD 06/15/2021 Z79.84 long-term (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 oral hypoglycemic drugs Jakub Padilla MD 05/30/2021 R07.89 Other chest pain Juan Miguel Abdul MD 05/30/2021 L76.34 Postoperative seroma Jakub alcantar MD 05/30/2021 Z95.810 Presence of automatic (implantab le) cardiac defibrillator Juan Miguel Abdul MD 05/30/2021 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 Juan Miguel [...] digestive system Jakub Padilla MD 05/30/2021 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 Juan Miguel Abdul MD 05/30/2021 E11.9 Type 2 diabetes mellitus without complications Juan Miguel Abdul MD 05/30/2021 I11.0 Hypertensive heart disease with heart failure Juan Miguel bAdul MD 05/30/2021 Z79.4 long-term (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 insul in Juan Miguel [...] 04/14/2021 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 Pan Ambrose [...] 04/13/2021 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 graft Pna Ambrose MD 04/13/2021 Z20.822 Contact with and [...] 03/28/2021 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 Camden Garcia NP 03/28/2021 I48.91 Unspecified atrial fibrillation Camden Garcia NP 03/28/2021 Z95.810 Presence of automatic (implantab le) cardiac defibrillator Camden Garcia NP 03/28/2021 I42.0 [facility] 03/28/2021 I42.0 Dilated cardiomyopathy Vince [...] dep endence Camden Garcia NP 03/28/2021 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 Camden Garcia NP 03/28/2021 I42.0 [facility] 03/28/2021 I50.20 Unspecified systolic (congestive [...] 03/19/2021 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 Ramón Hong [...] Dilated cardiomyopathy Manish gil MD 03/18/2021 Z79.01 long-term (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 antic oagulants Manish Pacheco [...] ominal wall Jakub Padilla MD 2021 Z79.01 long-term (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 antic oagulants Jakub Padilla [...] hyperlipidemia Juan Miguel loco MD 01/15/2021 Z79.4 long-term (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 insul in Juan Miguel Abdul MD Plan of Treatment Future Appointment(s):* 07/02/2021 3:15 pm - Jakub Padilla MD at [facility] Surgical Services * 09/05/2021 2:15 pm - Device Checks at [facility] Cardiology AT [facility] * 09/05/2021 2:15 pm - Juan Miguel Abdul MD at [facility] Cardiology AT [facility] Functional Status Description No Information Available Mental Status Description No Information Available Referrals Description No Information Available
--- OUTSIDE RECORDS SUMMARY | 2021-08-23 00:10 | CCD | Continuity of Care Document ---
Author Author Jamar ABDUL MD Organization Unknown Address [address] [facility] [address] [place] [address] Phone [phone] Care Team Providers Care Van Loader Name Role Phone Body, Isabel NP AUTM [phone] Marin Montana MD AUTM [phone] Juan Miguel Abdul MD AUTM [phone] Problems Active Problems Provider Date Automatic implantable [...] smokes every day 1/2 PACK PER DAY Allergies, Adverse Reactions, Alerts Description No Known Drug Allergies Medications Active [...] CPT Code Status Date Vaccine Lot # [id number] Given 12/19/2020 Moderna Covid-19 Sars-Cov-2, mRNA, LNP-S, PF, 100 mcg/ 0.5 mL 06784 Given 11/21/2020 Moderna Covid-19 Sars-Cov-2, mRNA, LNP-S, PF, 100 mcg/ 0.5 mL Vital Signs Date Vital Result Comment 05/30/2021 11:22am Height 74.00 inches 6'2" Weight 229.00 lb BMI (Body Mass Index) 29.4 kg/m2 BP Systolic 140 mmHg BP Diastolic 72 mmHg Heart Rate 75 /min Body Temperature 97.0 F Body Temperature 36.1 C O2 % BldC Oximetry 100 % 05/30/2021 9:50am Height 74.00 inches 6'2" Weight 229.38 lb BMI (Body Mass Index) 29.4 kg/m2 BP Systolic 146 mmHg BP Diastolic 70 mmHg Heart Rate 71 /min Results Test Acquired Date Facility Test Result H/L Range Note Laboratory test finding 03/28/2021 [facility] [address] [place] [address] [phone] BNP 1170.4 pg/mL High 0-100 1 Venipuncture DONE - 2 CMP-Male W/LDH,Phosphorus,Uric 02/21/2021 [facility] [address] [place], [place] [id number] [phone] LDH 252 U/L High 120-246 Phosphorus 4.1 mg/dL 2.7-4.5 3 Uric Acid 8.5 mg/dL High 2.6-7.2 CMP-Male 02/21/2021 [facility] [address] [place] [address] [phone] Glucose 238 mg/dL High 74-106 4 BUN [...] 1.9-3.7 Calcium 9.6 mg/dL 8.9-10.5 Cbcadp 02/21/2021 [facility] [address] [place] [address] [phone] WBC. 6.06 x10E3/uL 4.2-12.0 RBC 3.93 x10E6/uL Low 4.4-6.0 HGB 12.1 g/dL Low 13.8-18.0 HCT 39.5 % 39-52 MCV 100.5 fL High 80-98 MCH 30.8 pg 27-33 MCHC 30.7 g/dL Low 32-36 RDW 18.2 % High 11.2-15.2 PLT 157 x10E3/uL 135-420 MPV 8.5 fL 7.0-12.3 % Keesha 66.8 % 41.0-80.0 %Lym 23.1 % 10.0-45.2 %Angelina 7.2 % 2.0-13.0 %Eos 2.8 % 0.0-8.0 %Baso 0.2 % 0.0-3.0 Neut 4.1 x10E3/uL 2.0-8.1 Lymp 1.4 x10E3/uL 0.6-3.1 Angelina 0.4 x10E3/uL 0.0-1.0 Eos 0.2 x10E3/uL 0.0-0.6 Baso 0.0 x10E3/uL 0.0-0.2 Laboratory test finding 02/21/2021 [facility] [address] [place] [address] [phone] TSH3 3.622 mIU/ml 0.350-5.500 Free T4 1.66 ng/dL 0.89-1.80 BNP 2118.0 pg/mL 0-100 10 Venipuncture DONE - BMP-Male 12/11/2020 [facility] [address] [place] [address] [phone] Glucose 258 mg/dL High 74-106 11 BUN 143 mg/dL 6-20 12 Creatinine 3.5 mg/dL High 0.5-1.3 Sodium 134 mmol/L Low 136-145 13 Potassium 6.3 mmol/L 3.5-5.3 14 Chloride 102 mmol/L 98-107 Co2 20 mEq/L 20-31 Anion Gap 12 mmol/L 7-16 eGFR-male 18 mL/m/1.73m - eGFR-Aa male 21 mL/m/1.73m - 15 Calcium 9.3 mg/dL 8.9-10.5 CBC W/Auto Differential 12/11/2020 [facility] [address] [place] [address] [phone] WBC. 6.21 x10E3/uL 4.2-12.0 RBC 4.42 x10E6/uL 4.4-6.0 HGB 12.1 g/dL Low 13.8-18.0 HCT 38.1 % Low 39-52 MCV 86.2 fL 80-98 MCH 27.5 pg 27-33 MCHC 31.9 g/dL Low 32-36 RDW 21.9 % High 11.2-15.2 PLT 152 x10E3/uL 135-420 MPV 8.2 fL 7.0-12.3 % Keesha 73.1 % 41.0-80.0 %Lym 18.5 % 10.0-45.2 %Angelina 5.8 % 2.0-13.0 %Eos 2.3 % 0.0-8.0 %Baso 0.2 % 0.0-3.0 Neut 4.5 x10E3/uL 2.0-8.1 Lymp 1.2 x10E3/uL 0.6-3.1 Angelina 0.4 x10E3/uL 0.0-1.0 Eos 0.1 x10E3/uL 0.0-0.6 Baso 0.0 x10E3/uL 0.0-0.2 Laboratory test finding 12/11/2020 [facility] [address] [place] [address] [phone] Venipuncture DONE - 1 Labprint and transmitted at 1217 03/28/21 kk 2 STAT Draw Completed at 1120. SST Drawn as Extra. 3 02/28/2020-According to [employer] - Blood samples from some patients with monoclonal gammopathies may produce falsely elevated phosphorous results with this assay. 4 [place] [employer] n (ADA) Recommended Range is 65-99 mg/dL 5 Results Confirmed by Repeat Analysis. Results faxed at 1039 02/22/21 kk 6 Results Confirmed by Repeat Analysis. 7 Normal Kidney Function or Mi ld Disease GFR >59 mL/min/1.73m2 Chronic Kidney Disease GFR 15-59 mL/min/1.73m2 Renal Failure GFR <15 mL/min/1.73m2 8 Effective 03/22/2017: [facility] has indicated interference with the drugs sulfasalazine and sulfapyridine. They suggest collection should occur prior to drug administration due to falsely depressed results. 9 Results may reflect a potent ial interference in Total Protein results in patients receiving dextran as blood volume expanders. 10 Results Confirmed by Repeat Analysis. Results faxed at 1039 02/22/21 kk called to [facility] at 1039 02/22/21 kk 11 [place] [employer] n (ADA) Recommended Range is 65-99 mg/dL 12 Results Confirmed on Dilutio n. Results Called To Yu 1200 12/12/20 ak Labprint and transmitted 1201 12/12/20 ak 13 Results Confirmed by Repeat Analysis. 14 Results Confirmed by Repeat Analysis. specimen not hemolyzed Results Called To Yu 1200 3/23/21 ak Labprint and transmitted 1201 12/12/20 ak 15 Normal Kidney Function or Mi ld Disease GFR >59 mL/min/1.73m2 Chronic Kidney Disease GFR 15-59 mL/min/1.73m2 Renal Failure GFR <15 mL/min/1.73m2 Procedures Date Code Description Status 05/30/2021 57721 Electrocardiogram Complete Compl eted 05/30/2021 65860 Office/Outpatient Established Lo w MDM 20-29 Min Completed 04/18/2021 45646 TCM-Mod Completed 04/14/2021 08511 Hospital Subsequent Care Level 2 Completed 04/13/2021 26840 Hospital Subsequent Care Level 2 Completed 04/13/2021 56684 Electrocardiogram Interpretation & Report Only Completed 04/13/2021 08783 Cardioversion, Elective, Externa l Completed 04/12/2021 53202 Hospital Initial Care Level 1 Co mpleted 03/28/2021 91893 TCM-Mod Completed 03/28/2021 88250 Single Lead Implant Cardioverter -Defibrillator Completed 03/19/2021 94567 Hospital Subsequent Care Level 2 Completed 03/18/2021 37899 Hospital Subsequent Care Level 2 Completed 03/16/2021 12933 Electrocardiogram Interpretation & Report Only Completed 03/16/2021 24995 Hospital Initial Care Level 1 Co mpleted 03/13/2021 83034 Implant For Incisional/Ventral H ernia Repair Completed 03/13/2021 11321 Repair Hernia Incisional/Ventral Recurrent, Reducible Completed 03/13/2021 23557 Remove Support Implant Deep Comp leted 02/21/2021 73504 Office/Outpatient Established Mo d MDM 30-39 Min Completed 02/21/2021 02135 Electrocardiogram Complete Compl eted 2021 27199 Office/Outpatient Established Mo d MDM 30-39 Min Completed 01/15/2021 38897 Office/Outpatient Established Mo d MDM 30-39 Min Completed 01/15/2021 93780 Electrocardiogram Complete Compl eted 12/14/2020 53907 Hospital Discharge Day < 30 Evelyne lilia Completed 12/13/2020 13644 Hospital Subsequent Care Level 2 Completed 12/12/2020 94349 Hospital Initial Care Level 1 Co mpleted 12/11/2020 69875 Office/Outpatient Established Mo d MDM 30-39 Min Completed 12/11/2020 62638 Electrocardiogram Complete Compl eted Medical Devices Description No Information Available Encounters Type Date Location Provider Dx Diagnosis Office Visit 05/30/2021 9:45a [facility] Cardiology AT [facility] Juan Miguel Abdul MD R07.9 Chest pain, unspecified Z95.810 Presence of automatic (impla ntable) cardiac defibrillator 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 I50.32 Chronic diastolic (congestiv e) heart failure I48.0 Paroxysmal atrial fibrillati on I36.1 Nonrheumatic tricuspid (valv e) insufficiency Z79.01 residential (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 a 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 E11.9 Type 2 diabetes mellitus wit hout complications I13.10 Hyp hrt & chr kdny dis w/o h rt fail, w stg 1-4/unsp [facility] kdny Office Visit 04/30/2021 10:30a [facility] Surgical Services Katelin mckeon, MUD ANALYSIS OPERATOR Z48.815 Encntr for surgical aftcr [facility] L76.34 Postproc seroma of skin, sub cu following other procedure K43.2 Incisional hernia without ob struction or gangrene Office Visit 04/18/2021 9:30a [facility] Cardiology AT [facility] Juan Miguel Abdul MD Z95.810 Presence of automatic (impla ntable) cardiac defibrillator I50.23 Acute on chronic systolic (c ongestive) heart failure I25.5 Ischemic cardiomyopathy I34.0 Nonrheumatic mitral (valve) insufficiency E11.9 Type 2 diabetes mellitus wit hout complications Office Visit 04/18/2021 2:00p [facility] Surgical Services Katelin mckeon, MUD ANALYSIS OPERATOR L76.34 Postproc seroma of skin, subcu following other procedure K43.2 Incisional hernia without ob struction or gangrene Z48.815 Encntr for surgical aftcr fo llowing surgery on the dgv sys Z82.49 Family hx of ischem heart di s and oth dis of the circ sys Office Visit 04/14/2021 3:08a [facility] Surgical Services Pako brewster MD L76.34 Postproc seroma of skin, subcu following other procedure Office Visit 04/14/2021 3:11a [facility] Pan jara MD I50.22 Chronic systolic (congestive) heart fail ure I48.92 Unspecified atrial flutter 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 I48.91 Unspecified atrial fibrillat ion Z95.810 Presence of automatic (impla ntable) cardiac defibrillator I42.0 Dilated cardiomyopathy I50.20 Unspecified systolic (conges tive) heart failure N17.9 Acute kidney failure, unspec ified Z82.49 Family hx of ischem heart di s and oth dis of the [facility] sys Z87.891 Personal history of nicotine dependence 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 Johnathan Corcoran I48.91 Unspecified atrial fibrillation I42.0 Dilated cardiomyopathy Z79.01 residential (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 a 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 Office Visit 03/17/2021 2:29a [facility] Surgical Services Kriss Coon MD Office Visit 03/16/2021 2:32a [facility] Cardiology [facility] Ramón Hong MD N17.9 Acute kidney failure, unspecified R34 Anuria and oliguria F17.200 Nicotine dependence, unspeci fied, uncomplicated Office Visit 03/16/2021 2:30a [facility] Surgical Services Johnathan Cornejo Office Visit 03/15/2021 2:33a [facility] Surgical Services Kraig garsia MD Office Visit 03/14/2021 2:41a [facility] Surgical Services Johnathan Cornejo Office Visit 02/21/2021 10:30a [facility] Cardiology AT [facility] Juan Miguel Abdul MD I47.1 Supraventricular tachycardia I25.5 Ischemic cardiomyopathy I48.91 Unspecified atrial fibrillat ion R06.02 Shortness of breath Office Visit 2021 10:00a [facility] Surgical Services Johnathan Cornejo K43.2 Incisional hernia without obstruction or gangrene Z79.01 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 (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 a 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 Office Visit 01/15/2021 10:15a [facility] Cardiology AT [place] Juan Miguel alexis MD I48.91 Unspecified atrial fibrillation Z95.810 Presence of automatic (impla ntable) cardiac defibrillator I50.22 Chronic systolic (congestive ) heart failure I34.0 Nonrheumatic mitral (valve) insufficiency I48.0 Paroxysmal atrial fibrillati on E11.9 Type 2 diabetes mellitus wit hout complications I25.5 Ischemic cardiomyopathy E78.2 Mixed hyperlipidemia Z79.4 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 (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 i nsulin Office Visit 12/14/2020 8:56a [facility] Cardiology [facility] 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 Juan Miguel murray MD I48.91 Unspecified atrial fibrillation N17.9 Acute kidney failure, unspec ified E11.9 Type 2 diabetes mellitus wit hout complications D64.9 Anemia, unspecified E87.5 Hyperkalemia Office Visit 12/12/2020 9:40a [facility] Cardiology [facility] Juan Miguel murray MD N17.9 Acute kidney failure, unspecified R79.89 Other specified abnormal fin dings of blood chemistry I25.5 Ischemic cardiomyopathy E11.9 Type 2 diabetes mellitus wit hout complications I10 Essential (primary) hyperten josselin I48.91 Unspecified atrial fibrillat ion D50.0 Iron deficiency anemia secon allen to blood loss (chronic) Z95.810 Presence of automatic (impla ntable) cardiac defibrillator Office Visit 12/11/2020 2:30p [facility] Cardiology AT [place] Manish gil MD I48.11 Longstanding persistent atrial fibrillat ion D64.9 Anemia, unspecified I50.22 Chronic systolic (congestive ) heart failure 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.01 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 (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 a 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 Assessments Date Code Description Provider 05/30/2021 R07.9 Chest pain, unspecified Juan Miguel Abdul MD 05/30/2021 Z95.810 Presence of automatic (implantab le) cardiac defibrillator Juan Miguel Abdul MD 05/30/2021 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 Juan Miguel Abdul MD 05/30/2021 I50.32 Chronic diastolic (congestive) h eart failure Juan Miguel Abdul MD 05/30/2021 I48.0 Paroxysmal atrial fibrillation W nitesh Abdul MD 05/30/2021 I36.1 Nonrheumatic tricuspid (valve) i nsufficiency Juan Miguel Abdul MD 05/30/2021 Z79.01 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 (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 antic oagulants Juan Miguel Abdul MD 05/30/2021 E11.9 Type 2 diabetes mellitus without complications Juan Miguel Abdul MD 05/30/2021 I13.10 Hypertensive heart a nd chronic kidney disease without heart failure, with stage 1 through stage 4 chronic kidney disease, or unspecified chronic kidney disease Juan Miguel Abdul MD 04/30/2021 Z48.815 Encounter [...] 04/14/2021 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 Pan Ambrose [...] 03/28/2021 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 Camden Garcia [...] of automatic (implantab le) cardiac defibrillator [facility] 03/28/2021 Z87.891 Personal history of nicotine dep endence Camden Garcia NP 03/28/2021 Z79.01 residential (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 antic oagulants Camden Garcia NP 03/28/2021 I42.0 Dilated cardiomyopathy [facility] 03/28/2021 I50.20 Unspecified systolic (congestive ) heart failure [facility] 03/28/2021 Z95.810 Presence of automatic (implantab le) cardiac defibrillator [facility] 03/28/2021 I50.20 Unspecified systolic (congestive ) heart failure [facility] 03/28/2021 Z95.810 Presence of automatic (implantab le) cardiac defibrillator Device Checks 03/28/2021 I42.0 Dilated cardiomyopathy Device [facility] 03/19/2021 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 Ramón Hong [...] Dilated cardiomyopathy Manish gil MD 03/18/2021 Z79.01 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 (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 antic oagulants Manish Pacheco MD 03/16/2021 N17.9 Acute kidney failure, unspecifie d Ramón Hong MD 03/16/2021 R34 Anuria and oliguria Rmaón jurado MD 03/16/2021 F17.200 Nicotine dependence, unspecified [...] hrt kathrine l and stg 1-4/unsp chr lfores Jones MD 03/16/2021 I50.22 Chronic systolic (congestive) [...] ominal wall Jakub Padilla MD 2021 Z79.01 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 (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 antic oagulants Jakub Padilla [...] hyperlipidemia Juan Miguel loco MD 01/15/2021 Z79.4 residential (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 insul in Juan Miguel Abdul MD 12/14/2020 N17.9 Acute kidney failure, unspecifie d Juan Miguel Abdul MD 12/14/2020 I25.5 Ischemic cardiomyopathy Juan Miguel Abdul MD 12/14/2020 E78.5 Hyperlipidemia, unspecified Will kimberly Abdul MD 12/14/2020 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 mellitus with di abetic chronic kidney disease Juan Miguel Abdul MD 12/14/2020 N18.5 Chronic kidney disease, stage 5 Juan Miguel Abdul MD 12/14/2020 D50.0 Iron deficiency anemia secondary to blood loss (chronic) Juan Miguel Abdul MD 12/14/2020 I34.9 Nonrheumatic mitral valve disord er, unspecified Juan Miguel Abdul MD 12/14/2020 Z79.01 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 (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 antic oagulants Juan Miguel Abdul MD 12/13/2020 I48.91 Unspecified atrial fibrillation Juan Miguel Abdul MD 12/13/2020 N17.9 Acute kidney failure, unspecifie d Juan Miguel Abdul MD 12/13/2020 E11.9 Type 2 diabetes mellitus without complications Juan Miguel Abdul MD 12/13/2020 D64.9 Anemia, unspecified Juan Miguel murray MD 12/13/2020 E87.5 Hyperkalemia Juan Miguel Abdul MD 12/12/2020 N17.9 Acute kidney failure, unspecifie d Juan Miguel Abdul MD 12/12/2020 R79.89 Other specified abnormal finding s of blood chemistry Juan Miguel Abdul MD 12/12/2020 I25.5 Ischemic cardiomyopathy Juan Miguel Abdul MD 12/12/2020 E11.9 Type 2 diabetes mellitus without complications Juan Miguel Abdul MD 12/12/2020 I10 Essential (primary) hypertension Juan Miguel Abdul MD 12/12/2020 I48.91 Unspecified atrial fibrillation Juan Miguel Abdul MD 12/12/2020 D50.0 Iron deficiency anemia secondary to blood loss (chronic) Juan Miguel Abdul MD 12/12/2020 Z95.810 Presence of automatic (implantab le) cardiac defibrillator Juan Miguel Abdul MD 12/11/2020 I48.11 Longstanding persistent atrial f ibrillation Manish Pacheco MD 12/11/2020 D64.9 Anemia, unspecified Manish Pacheco MD 12/11/2020 I50.22 Chronic systolic (congestive) he art failure Manish Pacheco MD 12/11/2020 Z79.01 residential (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 antic oagulants Manish Pacheco MD 12/11/2020 I48.0 Paroxysmal atrial fibrillation [facility] 12/11/2020 I50.9 Heart failure, unspecified [facility] 12/11/2020 I48.0 Paroxysmal atrial fibrillation [facility] 12/11/2020 I50.9 Heart failure, unspecified [facility] Plan of Treatment Future Appointment(s):* 06/04/2021 1:00 pm - Jakub Padilla MD at [facility] Surgical Services * 09/05/2021 2:15 pm - Device Checks at [facility] Cardiology AT [facility] * 09/05/2021 2:15 pm - Juan Miguel Abdul MD at [facility] Cardiology AT [facility] Functional Status Description No Information Available Mental Status Description No Information Available Referrals Description No Information Available
--- OUTSIDE RECORDS SUMMARY | 2021-08-23 00:10 | CCD | Continuity of Care Document ---
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 Name Role Phone Body, Isabel ZULMA AUTM [phone] Marin Montana MD AUTM [phone] Juan Miguel Abdul MD AUTM [phone] Problems Active Problems Provider Date Automatic implantable [...] CPT Code Status Date Vaccine Lot # [id number] Given 12/19/2020 Moderna Covid-19 Sars-Cov-2, mRNA, LNP-S, PF, 100 mcg/ 0.5 mL 22862 Given 11/21/2020 Moderna Covid-19 Sars-Cov-2, mRNA, LNP-S, PF, 100 mcg/ 0.5 mL Vital Signs Date Vital Result Comment 06/25/2021 10:20am Height 74.00 inches 6'2" Weight 229.00 lb BMI (Body Mass Index) 29.4 kg/m2 BP Systolic 118 mmHg BP Diastolic 61 mmHg Heart Rate 76 /min Body Temperature 98.4 F Body Temperature 36.9 C O2 % BldC Oximetry 97 % 05/30/2021 11:22am Height 74.00 inches 6'2" Weight 229.00 lb BMI (Body Mass Index) 29.4 kg/m2 BP Systolic 140 mmHg BP Diastolic 72 mmHg Heart Rate 75 /min Body Temperature 97.0 F Body Temperature 36.1 C O2 % BldC Oximetry 100 % Results Test Acquired Date Facility Test Result H/L Range Note Laboratory test finding 06/11/2021 [employer] [facility] [address] [place] [address] [phone] Sars-Cov-2 Rna <pending> Laboratory test finding 03/28/2021 [facility] [address] [place] [address] [phone] BNP 1170.4 pg/mL High 0-100 1 Venipuncture DONE - 2 CMP-Male W/LDH,Phosphorus,Uric 02/21/2021 [employer] [facility] [address] [place] [address] [phone] LDH 252 U/L High 120-246 Phosphorus 4.1 mg/dL 2.7-4.5 3 Uric Acid 8.5 mg/dL High 2.6-7.2 CMP-Male 02/21/2021 [facility] [address] [place] [address] [phone] Glucose 238 mg/dL High 74-106 4 BUN [...] 1.9-3.7 Calcium 9.6 mg/dL 8.9-10.5 Cbcadp 02/21/2021 [facility] [address] [place] [address] [phone] WBC. 6.06 x10E3/uL 4.2-12.0 RBC 3.93 x10E6/uL Low 4.4-6.0 HGB 12.1 g/dL Low 13.8-18.0 HCT 39.5 % 39-52 MCV 100.5 fL High 80-98 MCH 30.8 pg 27-33 MCHC 30.7 g/dL Low 32-36 RDW 18.2 % High 11.2-15.2 PLT 157 x10E3/uL 135-420 MPV 8.5 fL 7.0-12.3 % Keesha 66.8 % 41.0-80.0 %Lym 23.1 % 10.0-45.2 %Caroline 7.2 % 2.0-13.0 %Eos 2.8 % 0.0-8.0 %Baso 0.2 % 0.0-3.0 Neut 4.1 x10E3/uL 2.0-8.1 Lymp 1.4 x10E3/uL 0.6-3.1 Caroline 0.4 x10E3/uL 0.0-1.0 Eos 0.2 x10E3/uL 0.0-0.6 Baso 0.0 x10E3/uL 0.0-0.2 Laboratory test finding 02/21/2021 [facility] [address] [place] [address] [phone] TSH3 3.622 mIU/ml 0.350-5.500 Free T4 1.66 ng/dL 0.89-1.80 BNP 2118.0 pg/mL 0-100 10 Venipuncture DONE - 1 Labprint and transmitted at 1217 03/28/21 kk 2 STAT Draw Completed at 1120. SST Drawn as Extra. 3 02/28/2020-According to [employer] - Blood samples from some patients with monoclonal gammopathies may produce falsely elevated phosphorous results with this assay. 4 [place] [employer] (ADA) Recommended Range is 65-99 mg/dL 5 Results Confirmed by Repeat Analysis. Results faxed at 1035 02/22/21 kk 6 Results Confirmed by Repeat Analysis. 7 Normal Kidney Function or Mi ld Disease GFR >59 mL/min/1.73m2 Chronic Kidney Disease GFR 15-59 mL/min/1.73m2 Renal Failure GFR <15 mL/min/1.73m2 8 Effective 03/22/2017: [employer] has indicated interference with the drugs sulfasalazine and sulfapyridine. They suggest collection should occur prior to drug administration due to falsely depressed results. 9 Results may reflect a potent ial interference in Total Protein results in patients receiving dextran as blood volume expanders. 10 Results Confirmed by Repeat Analysis. Results faxed at 1031 02/22/21 kk called to [facility] at 1039 02/22/21 kk Procedures Date Code Description Status 06/15/2021 22828 Abdominal Paracentesis W/Out Crystal ging Guidance Completed 05/30/2021 44014 Office/Outpatient Established Mo d MDM 30-39 Min Completed 05/30/2021 51404 Electrocardiogram Complete Compl eted 04/18/2021 71521 TCM-Mod Completed 04/14/2021 17524 Hospital Subsequent Care Level 2 Completed 04/13/2021 77561 Hospital Subsequent Care Level 2 Completed 04/13/2021 35425 Electrocardiogram Interpretation & Report Only Completed 04/13/2021 81514 Cardioversion, Elective, Externa l Completed 04/12/2021 92360 Hospital Initial Care Level 1 Co mpleted 03/28/2021 45782 TCM-Mod Completed 03/28/2021 75168 Single Lead Implant Cardioverter -Defibrillator Completed 03/19/2021 23393 Hospital Subsequent Care Level 2 Completed 03/18/2021 55022 Hospital Subsequent Care Level 2 Completed 03/16/2021 13990 Hospital Initial Care Level 1 Co mpleted 03/16/2021 73401 Electrocardiogram Interpretation & Report Only Completed 03/13/2021 70549 Implant For Incisional/Ventral H ernia Repair Completed 03/13/2021 00864 Repair Hernia Incisional/Ventral Recurrent, Reducible Completed 03/13/2021 03913 Remove Support Implant Deep Comp leted 02/21/2021 55038 Office/Outpatient Established Mo d MDM 30-39 Min Completed 02/21/2021 91490 Electrocardiogram Complete Compl eted 2021 71196 Office/Outpatient Established Mo d MDM 30-39 Min Completed 01/15/2021 17931 Office/Outpatient Established Mo d MDM 30-39 Min Completed 01/15/2021 62141 Electrocardiogram Complete Compl eted Medical Devices Description No Information Available Encounters Type Date Location Provider Dx Diagnosis Office Visit 05/30/2021 11:15a [facility] Surgical Services Johnathan Cornejo L76.34 Postproc seroma of skin, subcu following other procedure K43.2 Incisional hernia without ob struction or gangrene Z48.815 [facility]cn[facility] Visit 05/30/2021 9:45a [facility] Cardiology AT [facility] Juan Miguel Abdul MD R07.89 Other chest pain Z95.810 Presence of automatic (impla ntable) cardiac defibrillator 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 I50.32 Chronic diastolic (congestiv e) heart failure I48.0 Paroxysmal atrial fibrillati on I36.1 Nonrheumatic tricuspid (valv e) insufficiency Z79.01 intermission coordinator (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 a 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 E11.9 Type 2 diabetes mellitus wit hout complications I11.0 Hypertensive heart disease w ith heart failure Z79.4 intermission coordinator (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 i nsulin Office Visit 04/30/2021 10:30a [facility] Surgical Services Katelin mckeon, MACARONI MAKER Z48.815 Encntr for surgical aftcr [facility] L76.34 Postproc seroma of skin, sub cu following other procedure K43.2 Incisional hernia without ob struction or gangrene Office Visit 04/18/2021 9:30a [facility] Cardiology AT [facility] Juan Miguel Abdul MD Z95.810 Presence of automatic (impla ntable) cardiac defibrillator I50.23 Acute on chronic systolic (c ongestive) heart failure I25.5 Ischemic cardiomyopathy I34.0 Nonrheumatic mitral (valve) insufficiency E11.9 Type 2 diabetes mellitus wit hout complications Office Visit 04/18/2021 2:00p [facility] Surgical Services Katelin mckeon, MACARONI MAKER L76.34 Postproc seroma of skin, subcu following other procedure K43.2 Incisional hernia without ob struction or gangrene Z48.815 Encntr for surgical aftcr fo llowing surgery on the [facility] sys Z82.49 Family hx of ischem heart di s and oth dis of the [facility] sys Office Visit 04/14/2021 3:08a [facility] Surgical Services Pako brewster MD L76.34 Postproc seroma of skin, subcu following other procedure Office Visit 04/14/2021 3:11a [facility] Cardiology Hospital Pan jara MD I50.22 Chronic systolic (congestive) heart fail ure I48.92 Unspecified atrial flutter 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 N18.9 Chronic kidney disease, unsp ecified L76.34 Postproc seroma of skin, sub cu following other procedure 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 Office Visit 04/13/2021 10:12a [facility] Cardiology [facility] Juan Miguel murray MD I48.92 Unspecified atrial flutter I50.9 Heart failure, unspecified N18.9 Chronic kidney disease, unsp ecified L76.34 Postproc seroma of skin, sub cu following other procedure Office Visit 04/12/2021 9:24a [facility] Cardiology [facility] Juan Miguel murray MD I50.9 Heart failure, unspecified I48.91 Unspecified atrial fibrillat ion I44.0 Atrioventricular block, firs t degree R10.9 Unspecified abdominal pain Office Visit 04/03/2021 11:00a [facility] Surgical Services Katelin Zaragoza NP K43.2 Incisional hernia without obstruction or gangrene Z48.815 Encntr for surgical aftcr fo llowing surgery on the [facility] sys Office Visit 03/28/2021 2:30p [facility] Surgical Services Katelin Zaragoza NP K43.2 Incisional hernia without obstruction or gangrene Z48.815 Encntr for surgical aftcr fo llowing surgery on the [facility] sys Office Visit 03/28/2021 10:15a [facility] Cardiology AT [place] Vince Garcia NP I25.10 Athscl heart disease of [place] coronary artery w/o ang pctrs I48.91 Unspecified atrial fibrillat ion Z95.810 Presence of automatic (impla ntable) cardiac defibrillator I42.0 Dilated cardiomyopathy I50.20 Unspecified systolic (conges tive) heart failure N17.9 Acute kidney failure, unspec ified Z82.49 Family hx of ischem heart di s and oth dis of the [facility] Z87.891 Personal history of nicotine dependence Z79.01 custodial (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 a 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 Office Visit 03/21/2021 3:33a [facility] Surgical Services Johnathan Cornejo Office Visit 03/20/2021 2:43a [facility] Surgical Services Johnathan Cornejo Office Visit 03/19/2021 2:40a [facility] Surgical Services Johnathan Cornejo Office Visit 03/19/2021 2:36a [facility] Cardiology [facility] Ramón jurado MD I25.10 Athscl heart disease of [place] coronary artery w/o ang pctrs I50.20 Unspecified [...] ntable) cardiac defibrillator Office Visit 03/18/2021 2:26a [facility] Cardiology [facility] Johnathan Corcoran I48.91 Unspecified atrial fibrillation I42.0 Dilated cardiomyopathy Z79.01 custodial (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 a 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 Office Visit 03/17/2021 2:29a [facility] Surgical Services Kriss Coon MD Office Visit 03/16/2021 2:32a [facility] Cardiology [facility] Ramón Hong MD N17.9 Acute kidney failure, unspecified R34 Anuria and oliguria F17.200 Nicotine dependence, unspeci fied, uncomplicated Office Visit 03/16/2021 2:30a [facility] Surgical Services Johnathan Cornejo Office Visit 03/15/2021 2:33a [facility] Surgical Services Kraig garsia MD Office Visit 03/14/2021 2:41a [facility] Surgical Services Johnathan Cornejo Office Visit 02/21/2021 10:30a [facility] Cardiology AT [facility] Juan Miguel Abdul MD I47.1 Supraventricular tachycardia I25.5 Ischemic cardiomyopathy I48.91 Unspecified atrial fibrillat ion R06.02 Shortness of breath Office Visit 2021 10:00a [facility] Surgical Services Johnathan Cornejo K43.2 Incisional hernia without obstruction or gangrene Z79.01 custodial (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 a 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 Office Visit 01/15/2021 10:15a [facility] Cardiology AT [place] Juan Miguel alexis MD I48.91 Unspecified atrial fibrillation Z95.810 Presence of automatic (impla ntable) cardiac defibrillator I50.22 Chronic systolic (congestive ) heart failure I34.0 Nonrheumatic mitral (valve) insufficiency I48.0 Paroxysmal atrial fibrillati on E11.9 Type 2 diabetes mellitus wit hout complications I25.5 Ischemic cardiomyopathy E78.2 Mixed hyperlipidemia Z79.4 custodial (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 i nsulin Assessments Date Code Description Provider 06/15/2021 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 Jakub Padilla MD 06/15/2021 R18.0 Malignant ascites Jakub Padilla MD 06/15/2021 Z79.01 custodial (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 antic oagulants Jakub Padilla MD 06/15/2021 Z79.899 Other senior care (current) drug t herapy Jakub Padilla MD 06/15/2021 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 without angina pectoris Jakub Padilla MD 06/15/2021 E11.9 Type 2 diabetes mellitus without complications Jakub Padilla MD 06/15/2021 I10 Essential (primary) hypertension Jakub Padilla MD 06/15/2021 Z79.84 custodial (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 oral hypoglycemic drugs Jakub Padilla MD 05/30/2021 R07.89 Other chest pain Juan Miguel Abdul MD 05/30/2021 L76.34 Postoperative seroma Jakub alcantar MD 05/30/2021 Z95.810 Presence of automatic (implantab le) cardiac defibrillator Juan Miguel Abdul MD 05/30/2021 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 without angina pectoris Juan Miguel [...] digestive system Jakub Padilla MD 05/30/2021 Z79.01 intermission coordinator (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 antic oagulants Juan Miguel Abdul MD 05/30/2021 E11.9 Type 2 diabetes mellitus without complications Juan Miguel Abdul MD 05/30/2021 I11.0 Hypertensive heart disease with heart failure Juan Miguel Abdul MD 05/30/2021 Z79.4 intermission coordinator (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 insul in Juan Miguel [...] 04/14/2021 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 without angina pectoris Pan Ambrose [...] 03/28/2021 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 without angina pectoris Camden Garcia NP 03/28/2021 I48.91 Unspecified atrial fibrillation Camden Garcia NP 03/28/2021 Z95.810 Presence of automatic (implantab le) cardiac defibrillator Camden Garcia NP 03/28/2021 I42.0 Dilated cardiomyopathy [facility] 03/28/2021 I42.0 Dilated cardiomyopathy Vince Garcia NP 03/28/2021 I50.20 Unspecified systolic (congestive ) heart failure Camden Garcia NP 03/28/2021 N17.9 Acute kidney failure, unspecifie d Camden Garcia NP 03/28/2021 Z82.49 Family history of is chemic heart disease and other diseases of the circulatory system Camden Garcia NP 03/28/2021 Z95.810 Presence of automatic (implantab le) cardiac defibrillator [facility] 03/28/2021 Z87.891 Personal history of nicotine dep endence Camden Garcia NP 03/28/2021 Z79.01 custodial (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 antic oagulants Camden Garcia [...] 03/19/2021 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 without angina pectoris Ramón Hong [...] Dilated cardiomyopathy Manish gil MD 03/18/2021 Z79.01 intermission coordinator (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 antic oagulants Manish Pacheco [...] MD 03/16/2021 I13.0 Hyp hrt & chr jovanyroberto carlos dis w hrt kathrine l and stg [...] ominal wall Jakub Padilla MD 2021 Z79.01 custodial (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 antic oagulants Jakub Padilla [...] hyperlipidemia Juan Miguel loco MD 01/15/2021 Z79.4 custodial (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 insul in Juan Miguel Abdul MD Plan of Treatment Future Appointment(s):* 07/02/2021 3:15 pm - Jakub Padilla MD at [facility] Surgical Services * 09/05/2021 2:15 pm - Device Checks at [facility] Cardiology AT [facility] * 09/05/2021 2:15 pm - Juan Miguel Abdul MD at [facility] Cardiology AT [facility] Functional Status Description No Information Available Mental Status Description No Information Available Referrals Description No Information Available
--- OUTSIDE RECORDS SUMMARY | 2021-08-23 00:10 | CCD | Continuity of Care Document ---
Author Author Jamar ZARAGOZA SUPERCHARGER REPAIR SUPERVISOR Organization Unknown Address [address] [place] [address], [address] [place] [id number] Phone [phone] Care Team Providers Care Newspaper Copy Editor Name Role Phone Body, Isabel ZULMA AUTM [phone] Marin Montana MD AUTM [phone] Juan Miguel Abdul MD AUTM [phone] Problems Active Problems Provider Date Automatic implantable [...] CPT Code Status Date Vaccine Lot # [id number] Given 12/19/2020 Moderna Covid-19 Sars-Cov-2, mRNA, LNP-S, PF, 100 mcg/ 0.5 mL [id number] Given 11/21/2020 Moderna Covid-19 Sars-Cov-2, mRNA, LNP-S, [...] H/L Range Note Laboratory test finding 06/11/2021 Customer Service Representative Teacher [facility] [address] [place] [address] [phone] Sars-Cov-2 Rna <pending> Laboratory test finding 03/28/2021 Customer Service Representative [facility] [address] [place] [address] [phone] BNP 1170.4 pg/mL High 0-100 1 Venipuncture DONE - 2 CMP-Male W/LDH,Phosphorus,Uric 02/21/2021 Customer Service Representative Teacher [facility] [address] [place] [address] [phone] LDH 252 U/L High 120-246 Phosphorus 4.1 mg/dL 2.7-4.5 3 Uric Acid 8.5 mg/dL High 2.6-7.2 CMP-Male 02/21/2021 Customer Service Representative [facility] [address] [place] [address] [phone] Glucose 238 mg/dL High 74-106 4 BUN [...] 1.9-3.7 Calcium 9.6 mg/dL 8.9-10.5 Cbcadp 02/21/2021 Customer Service Representative [facility] [address] [place] [address] [phone] WBC. 6.06 x10E3/uL 4.2-12.0 RBC 3.93 x10E6/uL [...] 0.0 x10E3/uL 0.0-0.2 Laboratory test finding 02/21/2021 Customer Service Representative [facility] [address] [place] [address] [phone] TSH3 3.622 mIU/ml 0.350-5.500 Free T4 1.66 ng/dL 0.89-1.80 BNP 2118.0 pg/mL 0-100 10 Venipuncture DONE - 1 Labprint and transmitted at 1217 03/28/21 kk 2 STAT Draw Completed at 1120. SST Drawn as Extra. 3 02/28/2020-According to [employer] - Blood samples from some patients with monoclonal gammopathies may produce falsely elevated phosphorous results with this assay. 4 [place] [employer] n (ADA) Recommended Range is 65-99 mg/dL 5 Results Confirmed by Repeat Analysis. Results faxed at 103 02/22/21 kk 6 Results Confirmed by Repeat Analysis. 7 Normal Kidney Function or Mi ld Disease GFR >59 mL/min/1.73m2 Chronic Kidney Disease GFR 15-59 mL/min/1.73m2 Renal Failure GFR <15 mL/min/1.73m2 8 Effective 03/22/2017: [facility] has indicated interference with the drugs sulfasalazine and sulfapyridine. They suggest collection should occur prior to drug administration due to falsely depressed results. 9 Results may reflect a potent ial interference in Total Protein results in patients receiving dextran as blood volume expanders. 10 Results Confirmed by Repeat Analysis. Results faxed at 1033 02/22/21 kk called to [facility]uan at 1039 02/22/21 kk Procedures Date Code Description Status 06/15/2021 43829 Abdominal Paracentesis W/Out Crystal ging Guidance Completed 05/30/2021 30030 Office/Outpatient Established Mo d MDM 30-39 Min Completed 05/30/2021 33414 Electrocardiogram Complete Compl eted 04/18/2021 35533 TCM-Mod Completed 04/14/2021 64266 Hospital Subsequent Care Level 2 Completed 04/13/2021 69456 Hospital Subsequent Care Level 2 Completed 04/13/2021 12876 Electrocardiogram Interpretation & Report Only Completed 04/13/2021 32506 Cardioversion, Elective, Externa l Completed 04/12/2021 24600 Hospital Initial Care Level 1 Co mpleted 03/28/2021 96005 TCM-Mod Completed 03/28/2021 88588 Single Lead Implant Cardioverter -Defibrillator Completed 03/19/2021 85111 Hospital Subsequent Care Level 2 Completed 03/18/2021 57310 Hospital Subsequent Care Level 2 Completed 03/16/2021 25707 Hospital Initial Care Level 1 Co mpleted 03/16/2021 70068 Electrocardiogram Interpretation & Report Only Completed 03/13/2021 36042 Implant For Incisional/Ventral H ernia Repair Completed 03/13/2021 14389 Repair Hernia Incisional/Ventral Recurrent, Reducible Completed 03/13/2021 55162 Remove Support Implant Deep Comp leted 02/21/2021 44256 Office/Outpatient Established Mo d MDM 30-39 Min Completed 02/21/2021 80143 Electrocardiogram Complete Compl eted 2021 44902 Office/Outpatient Established Mo d MDM 30-39 Min Completed 01/15/2021 81586 Office/Outpatient Established Mo d MDM 30-39 Min Completed 01/15/2021 59868 Electrocardiogram Complete Compl eted Medical Devices Description No Information Available Encounters Type Date Location Provider Dx Diagnosis Office Visit 05/30/2021 11:15a [facility] Surgical Services Johnathan Cornejo L76.34 Postproc seroma of skin, subcu following other procedure K43.2 Incisional hernia without ob struction or gangrene Z48.815 Encntr for surgical aftcr fo [facility]lowing surgery on the [facility] sys Office Visit 05/30/2021 9:45a CMP Cardiology AT [facility] Juan Miguel Abdul MD R07.89 Other chest pain Z95.810 Presence of automatic (impla ntable) cardiac defibrillator 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 I50.32 Chronic diastolic (congestiv e) heart failure I48.0 Paroxysmal atrial fibrillati on I36.1 Nonrheumatic tricuspid (valv e) insufficiency Z79.01 moth 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 (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 a 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 E11.9 Type 2 diabetes mellitus wit hout complications I11.0 Hypertensive heart disease w ith heart failure Z79.4 moth 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 (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 i nsulin Office Visit 04/30/2021 10:30a [facility] Surgical Services Katelin mckeon, SUPERCHARGER REPAIR SUPERVISOR Z48.815 Encntr for [facility] aftcr [facility] L76.34 Postproc seroma of skin, sub cu following other procedure K43.2 Incisional hernia without ob struction or gangrene Office Visit 04/18/2021 9:30a [facility] Cardiology AT [facility] Juan Miguel Abdul MD Z95.810 Presence of automatic (impla ntable) cardiac defibrillator I50.23 Acute on chronic systolic (c ongestive) heart failure I25.5 Ischemic cardiomyopathy I34.0 Nonrheumatic mitral (valve) insufficiency E11.9 Type 2 diabetes mellitus wit hout complications Office Visit 04/18/2021 2:00p [facility] Surgical Services Katelin mckeon, SUPERCHARGER REPAIR SUPERVISOR L76.34 Postproc seroma of skin, subcu following other procedure K43.2 Incisional hernia without ob struction or gangrene Z48.815 Encntr for surgical aftcr fo llowing surgery on the [facility] sys Z82.49 Family hx of ischem heart di s and oth dis of the [facility] sys Office Visit 04/14/2021 3:08a [facility] Surgical Services Pako brewster MD L76.34 Postproc seroma of skin, subcu following other procedure Office Visit 04/14/2021 3:11a [facility] Cardiology Hospital Pan jara MD I50.22 Chronic systolic (congestive) heart fail ure I48.92 Unspecified atrial flutter 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 N18.9 Chronic kidney disease, unsp ecified L76.34 Postproc seroma of skin, sub cu following other procedure 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9 Unspecified abdominal pain Office Visit 04/03/2021 11:00a [facility] Surgical Services Katelin Zaragoza NP K43.2 Incisional hernia without obstruction or gangrene Z48.815 Encntr for surgical aftcr fo llowing surgery on the [facility] sys Office Visit 03/28/2021 2:30p [facility] Surgical Services Katelin Zaragoza NP K43.2 Incisional hernia without obstruction or gangrene Z48.815 Encntr for surgical aftcr fo llowing surgery on the [facility] sys Office Visit 03/28/2021 10:15a [facility] Cardiology AT [place] Vince Garcia NP 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 I48.91 Unspecified atrial fibrillat ion Z95.810 Presence of automatic (impla ntable) cardiac defibrillator I42.0 Dilated cardiomyopathy I50.20 Unspecified systolic (conges tive) heart failure N17.9 Acute kidney failure, unspec ified Z82.49 Family hx of ischem heart di s and oth dis of the [facility] Z87.891 Personal history of nicotine dependence Z79.01 retirement (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 a 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 Office Visit 03/21/2021 3:33a [facility] Surgical Services Johnathan Cornejo Office Visit 03/20/2021 2:43a [facility] Surgical Services Johnathan Cornejo Office Visit 03/19/2021 2:40a [facility] Surgical Services Johnathan Cornejo Office Visit 03/19/2021 2:36a [facility] Cardiology [facility] Ramón jurado MD 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 I50.20 Unspecified [...] ntable) cardiac defibrillator Office Visit 03/18/2021 2:26a [facility] Cardiology [facility] Johnathan Corcoran I48.91 Unspecified atrial fibrillation I42.0 Dilated cardiomyopathy Z79.01 retirement (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 a 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 Office Visit 03/17/2021 2:29a [facility] Surgical Services Kriss Coon MD Office Visit 03/16/2021 2:32a [facility] Cardiology [facility] Ramón Hong MD N17.9 Acute kidney failure, unspecified R34 Anuria and oliguria F17.200 Nicotine dependence, unspeci fied, uncomplicated Office Visit 03/16/2021 2:30a [facility] Surgical Services Johnathan Cornejo Office Visit 03/15/2021 2:33a [facility] Surgical Services Kraig garsia MD Office Visit 03/14/2021 2:41a [facility] Surgical Services Johnathan Cornejo Office Visit 02/21/2021 10:30a [facility] Cardiology AT [facility] Juan Miguel Abdul MD I47.1 Supraventricular tachycardia I25.5 Ischemic cardiomyopathy I48.91 Unspecified atrial fibrillat ion R06.02 Shortness of breath Office Visit 2021 10:00a [facility] Surgical Services Johnathan Cornejo K43.2 Incisional hernia without obstruction or gangrene Z79.01 retirement (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 a 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 Office Visit 01/15/2021 10:15a [facility]MP Cardiology AT [place] Juan Miguel alexis MD I48.91 Unspecified atrial fibrillation Z95.810 Presence of automatic (impla ntable) cardiac defibrillator I50.22 Chronic systolic (congestive ) heart failure I34.0 Nonrheumatic mitral (valve) insufficiency I48.0 Paroxysmal atrial fibrillati on E11.9 Type 2 diabetes mellitus wit hout complications I25.5 Ischemic cardiomyopathy E78.2 Mixed hyperlipidemia Z79.4 retirement (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 i nsulin Assessments Date Code Description Provider 06/15/2021 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 Jakub Padilla MD 06/15/2021 R18.0 Malignant ascites Jakub Padilla MD 06/15/2021 Z79.01 retirement (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 antic oagulants Jakub Padilla MD 06/15/2021 Z79.899 Other alf (current) drug t herapy Jakub Padilla MD 06/15/2021 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 without angina pectoris Jakub Padilla MD 06/15/2021 E11.9 Type 2 diabetes mellitus without complications Jakub Padilla MD 06/15/2021 I10 Essential (primary) hypertension Jakub Padilla MD 06/15/2021 Z79.84 retirement (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 oral hypoglycemic drugs Jakub Padilla MD 05/30/2021 R07.89 Other chest pain Juan Miguel Abdul MD 05/30/2021 L76.34 Postoperative seroma Jakub alcantar MD 05/30/2021 Z95.810 Presence of automatic (implantab le) cardiac defibrillator Juan Miguel Abdul MD 05/30/2021 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 without angina pectoris Juan Miguel [...] digestive system Jakub Padilla MD 05/30/2021 Z79.01 moth 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 (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 antic oagulants Juan Miguel Abdul MD 05/30/2021 E11.9 Type 2 diabetes mellitus without complications Juan Miguel Abdul MD 05/30/2021 I11.0 Hypertensive heart disease with heart failure Juan Miguel Abdul MD 05/30/2021 Z79.4 moth 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 (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 insul in Juan Miguel [...] 04/14/2021 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 without angina pectoris Pan [facility] [...] 03/28/2021 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 without angina pectoris Camden Garcia [...] Presence of automatic (implantab le) cardiac defibrillator [facility] 03/28/2021 Z87.891 Personal history of nicotine dep endence Camden Garcia NP 03/28/2021 Z79.01 retirement (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 antic oagulants Camden Garcia [...] 03/19/2021 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 without angina pectoris Ramón Hong [...] Dilated cardiomyopathy Manish gil MD 03/18/2021 Z79.01 moth 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 (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 antic oagulants Manish Pacheco [...] ominal wall Jakub Padilla MD 2021 Z79.01 retirement (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 antic oagulants Jakub Padilla [...] hyperlipidemia Juan Miguel loco MD 01/15/2021 Z79.4 retirement (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 insul in Juan Miguel Abdul MD Plan of Treatment Future Appointment(s):* 07/02/2021 3:15 pm - Jakub Padilla MD at [facility] Surgical Services * 09/05/2021 2:15 pm - Device Checks at [facility] Cardiology AT [facility] * 09/05/2021 2:15 pm - Juan Miguel Abdul MD at [facility] Cardiology AT [facility] Functional Status Description No Information Available Mental Status Description No Information Available Referrals Description No Information Available
--- OUTSIDE RECORDS SUMMARY | 2021-08-23 00:10 | CCD | Continuity of Care Document ---
Author Author Jamar ZARAGOZA [employer] [employer] Organization Unknown Address [address] [place] [address], [address] [place] [id number] Phone [phone] Care Team Providers Care Accounts Manager Name Role Phone Body, Isabel ZULMA AUTM [phone] Marin Montana MD AUTM [phone] Juan Miguel Abdul MD AUTM [phone] Problems Active Problems Provider Date Automatic implantable [...] CPT Code Status Date Vaccine Lot # [id number] Given 12/19/2020 Moderna Covid-19 Sars-Cov-2, mRNA, LNP-S, PF, 100 mcg/ 0.5 mL [id number] Given 11/21/2020 Moderna Covid-19 Sars-Cov-2, mRNA, LNP-S, [...] H/L Range Note Laboratory test finding 06/11/2021 [facility] [address] [place] [address] [phone] Sars-Cov-2 Rna <pending> Laboratory test finding 03/28/2021 [facility] [address] [place] [address] [phone] BNP 1170.4 pg/mL High 0-100 1 Venipuncture DONE - 2 CMP-Male W/LDH,Phosphorus,Uric 02/21/2021 [facility] [address] [place] [address] [phone] LDH 252 U/L High 120-246 Phosphorus 4.1 mg/dL 2.7-4.5 3 Uric Acid 8.5 mg/dL High 2.6-7.2 CMP-Male 02/21/2021 [facility] [address] [place] [address] [phone] Glucose 238 mg/dL High 74-106 4 BUN [...] 1.9-3.7 Calcium 9.6 mg/dL 8.9-10.5 Cbcadp 02/21/2021 [facility] [address] [place] [address] [phone] WBC. 6.06 x10E3/uL 4.2-12.0 RBC 3.93 x10E6/uL Low 4.4-6.0 HGB 12.1 g/dL Low 13.8-18.0 HCT 39.5 % 39-52 MCV 100.5 fL High 80-98 MCH 30.8 pg 27-33 MCHC 30.7 g/dL Low 32-36 RDW 18.2 % High 11.2-15.2 PLT 157 x10E3/uL 135-420 MPV 8.5 fL 7.0-12.3 % Keesha 66.8 % 41.0-80.0 %Lym 23.1 % 10.0-45.2 %[place] 7.2 % 2.0-13.0 %Eos 2.8 % 0.0-8.0 %Baso 0.2 % 0.0-3.0 Neut 4.1 x10E3/uL 2.0-8.1 Lymp 1.4 x10E3/uL 0.6-3.1 [place] 0.4 x10E3/uL 0.0-1.0 Eos 0.2 x10E3/uL 0.0-0.6 Baso 0.0 x10E3/uL 0.0-0.2 Laboratory test finding 02/21/2021 [facility] [address] [place] [address] [phone] TSH3 3.622 mIU/ml 0.350-5.500 Free T4 1.66 ng/dL 0.89-1.80 BNP 2118.0 pg/mL 0-100 10 Venipuncture DONE - 1 Labprint and transmitted at 1217 03/28/21 kk 2 STAT Draw Completed at 1120. SST Drawn as Extra. 3 02/28/2020-According to [employer] - Blood samples from some patients with monoclonal gammopathies may produce falsely elevated phosphorous results with this assay. 4 [place] [employer] n (ADA) Recommended Range is 65-99 mg/dL 5 Results Confirmed by Repeat Analysis. Results faxed at 1031 02/22/21 kk 6 Results Confirmed by Repeat Analysis. 7 Normal Kidney Function or Mi ld Disease GFR >59 mL/min/1.73m2 Chronic Kidney Disease GFR 15-59 mL/min/1.73m2 Renal Failure GFR <15 mL/min/1.73m2 8 Effective 03/22/2017: [employer] has indicated interference with the drugs sulfasalazine and sulfapyridine. They suggest collection should occur prior to drug administration due to falsely depressed results. 9 Results may reflect a potent ial interference in Total Protein results in patients receiving dextran as blood volume expanders. 10 Results Confirmed by Repeat Analysis. Results faxed at 1035 02/22/21 kk called to [facility] at 1039 02/22/21 kk Procedures Date Code Description Status 06/15/2021 70129 Abdominal Paracentesis W/Out Crystal ging Guidance Completed 05/30/2021 42095 Office/Outpatient Established Mo d MDM 30-39 Min Completed 05/30/2021 93549 Electrocardiogram Complete Compl eted 04/18/2021 68954 TCM-Mod Completed 04/14/2021 94230 Hospital Subsequent Care Level 2 Completed 04/13/2021 34384 Hospital Subsequent Care Level 2 Completed 04/13/2021 89073 Electrocardiogram Interpretation & Report Only Completed 04/13/2021 47705 Cardioversion, Elective, Externa l Completed 04/12/2021 15260 Hospital Initial Care Level 1 Co mpleted 03/28/2021 63763 TCM-Mod Completed 03/28/2021 01778 Single Lead Implant Cardioverter -Defibrillator Completed 03/19/2021 05608 Hospital Subsequent Care Level 2 Completed 03/18/2021 24514 Hospital Subsequent Care Level 2 Completed 03/16/2021 14736 Hospital Initial Care Level 1 Co mpleted 03/16/2021 03892 Electrocardiogram Interpretation & Report Only Completed 03/13/2021 25160 Implant For Incisional/Ventral H ernia Repair Completed 03/13/2021 90208 Repair Hernia Incisional/Ventral Recurrent, Reducible Completed 03/13/2021 48865 Remove Support Implant Deep Comp leted 02/21/2021 34399 Office/Outpatient Established Mo d MDM 30-39 Min Completed 02/21/2021 68746 Electrocardiogram Complete Compl eted 2021 04155 Office/Outpatient Established Mo d MDM 30-39 Min Completed 01/15/2021 14212 Office/Outpatient Established Mo d MDM 30-39 Min Completed 01/15/2021 51644 Electrocardiogram Complete Compl eted Medical Devices Description No Information Available Encounters Type Date Location Provider Dx Diagnosis Office Visit 05/30/2021 11:15a [facility] Surgical Services Johnathan Cornejo L76.34 Postproc seroma of skin, subcu following other procedure K43.2 Incisional hernia without ob struction or gangrene Z48.815 Encntr for surgical aftcr [facility] Office Visit 05/30/2021 9:45a [facility] AT [facility] Juan Miguel Abdul MD R07.89 Other chest pain Z95.810 Presence of automatic (impla ntable) cardiac defibrillator 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 I50.32 Chronic diastolic (congestiv e) heart failure I48.0 Paroxysmal atrial fibrillati on I36.1 Nonrheumatic tricuspid (valv e) insufficiency Z79.01 manager intermediate (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 a 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 E11.9 Type 2 diabetes mellitus wit hout complications I11.0 Hypertensive heart disease w ith heart failure Z79.4 manager intermediate (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 i nsulin Office Visit 04/30/2021 10:30a [facility] Surgical Services Katelin mckeon, [employer] [employer] Z48.815 Encntr [facility]ftcr [facility] L76.34 Postproc seroma of skin, sub cu following other procedure K43.2 Incisional hernia without ob struction or gangrene Office Visit 04/18/2021 9:30a [facility] Cardiology AT [facility] Juan Miguel Abdul MD Z95.810 Presence of automatic (impla ntable) cardiac defibrillator I50.23 Acute on chronic systolic (c ongestive) heart failure I25.5 Ischemic cardiomyopathy I34.0 Nonrheumatic mitral (valve) insufficiency E11.9 Type 2 diabetes mellitus wit hout complications Office Visit 04/18/2021 2:00p [facility] Surgical Services Katelin mckeon, [employer] [employer] L76.34 Postproc seroma of skin, subcu following other procedure K43.2 Incisional hernia without ob struction or gangrene Z48.815 Encntr for surgical aftcr fo llowing surgery on the [facility] sys Z82.49 Family hx of ischem heart di s and oth dis of the [facility] sys Office Visit 04/14/2021 3:08a [facility] Surgical Services Pako brewster MD L76.34 Postproc seroma of skin, subcu following other procedure Office Visit 04/14/2021 3:11a [facility] Cardiology Hospital Pan jara MD I50.22 Chronic systolic (congestive) heart fail ure I48.92 Unspecified atrial flutter 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 N18.9 Chronic kidney disease, unsp ecified L76.34 Postproc seroma of skin, sub cu following other procedure 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 Office Visit 04/13/2021 10:12a [facility] Cardiology [facility] Juan Miguel murray MD I48.92 Unspecified atrial flutter I50.9 Heart failure, unspecified N18.9 Chronic kidney disease, unsp ecified L76.34 Postproc seroma of skin, sub cu following other procedure Office Visit 04/12/2021 9:24a [facility] Cardiology [facility] Juan Miguel murray MD I50.9 Heart failure, unspecified I48.91 Unspecified atrial fibrillat ion I44.0 Atrioventricular block, firs t degree R10.9 Unspecified abdominal pain Office Visit 04/03/2021 11:00a [facility] Surgical Services Katelin Zaragoza NP K43.2 Incisional hernia without obstruction or gangrene Z48.815 Encntr for surgical aftcr fo llowing surgery on the [facility] sys Office Visit 03/28/2021 2:30p [facility] Surgical Services Katelin Zaragoza NP K43.2 Incisional hernia without obstruction or gangrene Z48.815 Encntr for surgical aftcr fo llowing surgery on the [facility] sys Office Visit 03/28/2021 10:15a [facility] Vince Garcia NP I25.10 Athscl heart disease of [place] coronary artery w/o ang pctrs I48.91 Unspecified atrial fibrillat ion Z95.810 Presence of automatic (impla ntable) cardiac defibrillator I42.0 Dilated cardiomyopathy I50.20 Unspecified systolic (conges tive) heart failure N17.9 Acute kidney failure, unspec ified Z82.49 Family hx of ischem heart di s and oth dis of the [facility] Z87.891 Personal history of nicotine dependence Z79.01 USP (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 a 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 Office Visit 03/21/2021 3:33a [facility] Surgical Services Johnathan Cornejo Office Visit 03/20/2021 2:43a [facility] Surgical Services Johnathan Cornejo Office Visit 03/19/2021 2:40a [facility] Surgical Services Johnathan Cornejo Office Visit 03/19/2021 2:36a [facility] Cardiology [facility] Ramón jurado MD I25.10 Athscl heart disease of [place] coronary artery w/o ang pctrs I50.20 Unspecified [...] ntable) cardiac defibrillator Office Visit 03/18/2021 2:26a [facility] Cardiology [facility] Johnathan Corcoran I48.91 Unspecified atrial fibrillation I42.0 Dilated cardiomyopathy Z79.01 USP (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 a 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 Office Visit 03/17/2021 2:29a [facility] Surgical Services Kriss Coon MD Office Visit 03/16/2021 2:32a [facility] Cardiology [facility] Ramón Hong MD N17.9 Acute kidney failure, unspecified R34 Anuria and oliguria F17.200 Nicotine dependence, unspeci fied, uncomplicated Office Visit 03/16/2021 2:30a [facility] Surgical Services Johnathan Cornejo Office Visit 03/15/2021 2:33a [facility] Surgical Services Kraig garsia MD Office Visit 03/14/2021 2:41a [facility] Surgical Services Johnathan Cornejo Office Visit 02/21/2021 10:30a [facility] Cardiology AT [facility] Juan Miguel Abdul MD I47.1 Supraventricular tachycardia I25.5 Ischemic cardiomyopathy I48.91 Unspecified atrial fibrillat ion R06.02 Shortness of breath Office Visit 2021 10:00a [facility] Surgical Services Johnathan Cornejo K43.2 Incisional hernia without obstruction or gangrene Z79.01 USP (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 a 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 Office Visit 01/15/2021 10:15a [facility] Juan Miguel alexis MD I48.91 Unspecified atrial fibrillation Z95.810 Presence of automatic (impla ntable) cardiac defibrillator I50.22 Chronic systolic (congestive ) heart failure I34.0 Nonrheumatic mitral (valve) insufficiency I48.0 Paroxysmal atrial fibrillati on E11.9 Type 2 diabetes mellitus wit hout complications I25.5 Ischemic cardiomyopathy E78.2 Mixed hyperlipidemia Z79.4 USP (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 i nsulin Assessments Date Code Description Provider 06/15/2021 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 Jakub Padilla MD 06/15/2021 R18.0 Malignant ascites Jakub Padilla MD 06/15/2021 Z79.01 USP (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 antic oagulants Jakub Padilla MD 06/15/2021 Z79.899 Other care home (current) drug t herapy Jakub Padilla MD 06/15/2021 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 without angina pectoris Jakub Padilla MD 06/15/2021 E11.9 Type 2 diabetes mellitus without complications Jakub Padilla MD 06/15/2021 I10 Essential (primary) hypertension Jakub Padilla MD 06/15/2021 Z79.84 USP (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 oral hypoglycemic drugs Jakub Padilla MD 05/30/2021 R07.89 Other chest pain Juan Miguel Abdul MD 05/30/2021 L76.34 Postoperative seroma Jakub alcantar MD 05/30/2021 Z95.810 Presence of automatic (implantab le) cardiac defibrillator Juan Miguel Abdul MD 05/30/2021 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 without angina pectoris Juan Miguel [...] digestive system Jakub Padilla MD 05/30/2021 Z79.01 manager intermediate (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 antic oagulants Juan Miguel Abdul MD 05/30/2021 E11.9 Type 2 diabetes mellitus without complications Juan Miguel Abdul MD 05/30/2021 I11.0 Hypertensive heart disease with heart failure Juan Miguel Abdul MD 05/30/2021 Z79.4 manager intermediate (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 insul in Juan [...] 04/14/2021 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 without angina pectoris Pan Ambrose [...] 03/28/2021 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 without angina pectoris [place] Garcia [...] Presence of automatic (implantab le) cardiac defibrillator [facility] 03/28/2021 Z87.891 Personal history of nicotine dep endence [place] Garcia NP 03/28/2021 Z79.01 USP (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 antic oagulants [place] Garcia [...] 03/19/2021 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 without angina pectoris Ramón Hong [...] Dilated cardiomyopathy Manish gil MD 03/18/2021 Z79.01 manager intermediate (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 antic oagulants Manish [...] 02/21/2021 I48.91 Unspecified atrial fibrillation Juan Miguel bAdul MD 02/21/2021 R06.02 Shortness of breath Juan Miguel murray MD 02/21/2021 I25.5 Ischemic cardiomyopathy [facility] 02/21/2021 I48.91 Unspecified atrial fibrillation [facility] 02/21/2021 I50.22 Chronic systolic (congestive) he art failure [facility] 2021 K43.2 Recurrent hernia of anterior abd ominal wall Jakub Padilla MD 2021 Z79.01 USP (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 antic oagulants Jakub Padilla [...] hyperlipidemia Juan Miguel loco MD 01/15/2021 Z79.4 USP (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 insul in Juan Miguel Abdul MD Plan of Treatment Future Appointment(s):* 07/02/2021 3:15 pm - Jakub Padilla MD at [facility] Surgical Services * 09/05/2021 2:15 pm - Device Checks at [facility] Cardiology AT [facility] * 09/05/2021 2:15 pm - Juan Miguel Abdul MD at [facility] Cardiology AT [facility] Functional Status Description No Information Available Mental Status Description No Information Available Referrals Description No Information Available
--- OUTSIDE RECORDS SUMMARY | 2021-08-23 00:10 | CCD | Continuity of Care Document ---
Author Author Device Jamar Ortiz Organization Unknown Address [address], [address] [place] [address] Phone [phone] Care Team Providers Care Lokie Engineer Name Role Phone Body, Isabel MAYA AUTM [phone] Marin Montana MD AUTM [phone] Juan Miguel Abdul MD AUTM [phone] Problems Active Problems Provider Date Automatic implantable [...] CPT Code Status Date Vaccine Lot # [id number] Given 12/19/2020 Moderna Covid-19 Sars-Cov-2, mRNA, LNP-S, PF, 100 mcg/ 0.5 mL 18936 Given 11/21/2020 Moderna Covid-19 Sars-Cov-2, mRNA, LNP-S, [...] H/L Range Note Laboratory test finding 03/28/2021 [facility] [address] [place] [address] [phone] BNP 1170.4 pg/mL High 0-100 1 Venipuncture DONE - 2 CMP-Male W/LDH,Phosphorus,Uric 02/21/2021 [facility] [address] [place], [place] [id number] [phone] LDH 252 U/L High 120-246 Phosphorus 4.1 mg/dL 2.7-4.5 3 Uric Acid 8.5 mg/dL High 2.6-7.2 CMP-Male 02/21/2021 [facility] [address] [place] [address] [phone] Glucose 238 mg/dL High 74-106 4 BUN [...] 1.9-3.7 Calcium 9.6 mg/dL 8.9-10.5 Cbcadp 02/21/2021 [facility] [address] [place] [address] [phone] WBC. 6.06 x10E3/uL 4.2-12.0 RBC 3.93 x10E6/uL Low 4.4-6.0 HGB 12.1 g/dL Low 13.8-18.0 HCT 39.5 % 39-52 MCV 100.5 fL High 80-98 MCH 30.8 pg 27-33 MCHC 30.7 g/dL Low 32-36 RDW 18.2 % High 11.2-15.2 PLT 157 x10E3/uL 135-420 MPV 8.5 fL 7.0-12.3 % Keesha 66.8 % 41.0-80.0 %Lym 23.1 % 10.0-45.2 %Dinwiddie 7.2 % 2.0-13.0 %Eos 2.8 % 0.0-8.0 %Baso 0.2 % 0.0-3.0 Neut 4.1 x10E3/uL 2.0-8.1 Lymp 1.4 x10E3/uL 0.6-3.1 [place] 0.4 x10E3/uL 0.0-1.0 Eos 0.2 x10E3/uL 0.0-0.6 Baso 0.0 x10E3/uL 0.0-0.2 Laboratory test finding 02/21/2021 [facility] [address] [place] [address] [phone] TSH3 3.622 mIU/ml 0.350-5.500 Free T4 1.66 ng/dL 0.89-1.80 BNP 2118.0 pg/mL 0-100 10 Venipuncture DONE - BMP-Male 12/11/2020 [facility] [address] [place] [address] [phone] Glucose 258 mg/dL High 74-106 11 BUN 143 mg/dL 6-20 12 Creatinine 3.5 mg/dL High 0.5-1.3 Sodium 134 mmol/L Low 136-145 13 Potassium 6.3 mmol/L 3.5-5.3 14 Chloride 102 mmol/L 98-107 Co2 20 mEq/L 20-31 Anion Gap 12 mmol/L 7-16 eGFR-male 18 mL/m/1.73m - eGFR-Aa male 21 mL/m/1.73m - 15 Calcium 9.3 mg/dL 8.9-10.5 CBC W/Auto Differential 12/11/2020 [facility] [address] [place] [address] [phone] WBC. 6.21 x10E3/uL 4.2-12.0 RBC 4.42 x10E6/uL 4.4-6.0 HGB 12.1 g/dL Low 13.8-18.0 HCT 38.1 % Low 39-52 MCV 86.2 fL 80-98 MCH 27.5 pg 27-33 MCHC 31.9 g/dL Low 32-36 RDW 21.9 % High 11.2-15.2 PLT 152 x10E3/uL 135-420 MPV 8.2 fL 7.0-12.3 % Keesha 73.1 % 41.0-80.0 %Lym 18.5 % 10.0-45.2 %D[place]widdie 5.8 % 2.0-13.0 %Eos 2.3 % 0.0-8.0 %Baso 0.2 % 0.0-3.0 Neut 4.5 x10E3/uL 2.0-8.1 Lymp 1.2 x10E3/uL 0.6-3.1 [place] 0.4 x10E3/uL 0.0-1.0 Eos 0.1 x10E3/uL 0.0-0.6 Baso 0.0 x10E3/uL 0.0-0.2 Laboratory test finding 12/11/2020 [facility] [address] [place] [address] [phone] Venipuncture DONE - 1 Labprint and transmitted at 1217 03/28/21 kk 2 STAT Draw Completed at 1120. SST Drawn as Extra. 3 02/28/2020-According to [employer] - Blood samples from some patients with monoclonal gammopathies may produce falsely elevated phosphorous results with this assay. 4 [place] [employer] n (ADA) Recommended Range is 65-99 mg/dL 5 Results Confirmed by Repeat Analysis. Results faxed at 1039 02/22/21 kk 6 Results Confirmed by Repeat Analysis. 7 Normal Kidney Function or Mi ld Disease GFR >59 mL/min/1.73m2 Chronic Kidney Disease GFR 15-59 mL/min/1.73m2 Renal Failure GFR <15 mL/min/1.73m2 8 Effective 03/22/2017: [facility] has indicated interference with the drugs [...] to Xuan at 1039 02/22/21 kk 11 [place] Diabetes [employer] n (ADA) Recommended Range is [...] mL/min/1.73m2 Procedures Date Code Description Status 05/30/2021 98005 Electrocardiogram Complete Compl eted 05/30/2021 73849 Office/Outpatient Established Lo w MDM 20-29 Min Completed 04/18/2021 19835 TCM-Mod Completed 04/14/2021 23873 Hospital Subsequent Care Level 2 Completed 04/13/2021 39325 Hospital Subsequent Care Level 2 Completed 04/13/2021 98111 Electrocardiogram Interpretation & Report Only Completed 04/13/2021 07516 Cardioversion, Elective, Externa l Completed 04/12/2021 90933 Hospital Initial Care Level 1 Co mpleted 03/28/2021 40466 TCM-Mod Completed 03/28/2021 98145 Single Lead Implant Cardioverter -Defibrillator Completed 03/19/2021 45696 Hospital Subsequent Care Level 2 Completed 03/18/2021 65534 Hospital Subsequent Care Level 2 Completed 03/16/2021 90363 Electrocardiogram Interpretation & Report Only Completed 03/16/2021 48213 Hospital Initial Care Level 1 Co mpleted 03/13/2021 83541 Implant For Incisional/Ventral H ernia Repair Completed 03/13/2021 08146 Repair Hernia Incisional/Ventral Recurrent, Reducible Completed 03/13/2021 74784 Remove Support Implant Deep Comp leted 02/21/2021 05378 Office/Outpatient Established Mo d MDM 30-39 Min Completed 02/21/2021 56742 Electrocardiogram Complete Compl eted 2021 15003 Office/Outpatient Established Mo d MDM 30-39 Min Completed 01/15/2021 15564 Office/Outpatient Established Mo d MDM 30-39 Min Completed 01/15/2021 65845 Electrocardiogram Complete Compl eted 12/14/2020 13196 Hospital Discharge Day < 30 Evelyne lilia Completed 12/13/2020 70629 Hospital Subsequent Care Level 2 Completed 12/12/2020 21813 Hospital Initial Care Level 1 Co mpleted 12/11/2020 44448 Office/Outpatient Established Mo d MDM 30-39 Min Completed 12/11/2020 38106 Electrocardiogram Complete Compl eted Medical Devices Description No Information Available Encounters Type Date Location Provider Dx Diagnosis Office Visit 05/30/2021 9:45a [facility] Cardiology AT [facility] Juan Miguel Abdul MD R07.9 Chest pain, unspecified Z95.810 Presence of automatic (impla ntable) cardiac defibrillator 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 I50.32 Chronic diastolic (congestiv e) heart failure I48.0 Paroxysmal atrial fibrillati on I36.1 Nonrheumatic tricuspid (valv e) insufficiency Z79.01 director transition (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 a 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 E11.9 Type 2 diabetes mellitus wit hout complications I13.10 Hyp hrt & chr kdny dis w/o h rt fail, w stg 1-4/unsp [facility] kdny Office Visit 04/30/2021 10:30a [facility] Surgical Services Katelin mckeon, LAWN SPECIALIST Z48.815 Encntr for surgical aftcr [facility] L76.34 Postproc seroma of skin, sub cu following other procedure K43.2 Incisional hernia without ob struction or gangrene Office Visit 04/18/2021 9:30a [facility]iology AT [facility] Juan Miguel Abdul MD Z95.810 Presence of automatic (impla ntable) cardiac defibrillator I50.23 Acute on chronic systolic (c ongestive) heart failure I25.5 Ischemic cardiomyopathy I34.0 Nonrheumatic mitral (valve) insufficiency E11.9 Type 2 diabetes mellitus wit hout complications Office Visit 04/18/2021 2:00p [facility] Surgical Services Katelin mckeon, LAWN SPECIALIST L76.34 Postproc seroma of skin, subcu following other procedure K43.2 Incisional hernia without ob struction or gangrene Z48.815 Encntr for surgical aftcr fo llowing surgery on the dgv sys Z82.49 Family hx of ischem heart di s and oth dis of the circ sys Office Visit 04/14/2021 3:08a [facility] Services Pako brewster MD L76.34 Postproc seroma of skin, subcu following other procedure Office Visit 04/14/2021 3:11a [facility] Pan jara MD I50.22 Chronic systolic (congestive) heart fail ure I48.92 Unspecified atrial flutter 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 N18.9 Chronic kidney disease, unsp ecified L76.34 Postproc seroma of skin, sub cu following other procedure 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 Office Visit 04/13/2021 10:12a [facility] Juan Miguel murray MD I48.92 Unspecified atrial flutter I50.9 Heart failure, unspecified N18.9 Chronic kidney disease, unsp ecified L76.34 Postproc seroma of skin, sub cu following other procedure Office Visit 04/12/2021 9:24a [facility]iology [facility] Juan Miguel murray MD I50.9 Heart failure, unspecified I48.91 Unspecified atrial fibrillat ion I44.0 Atrioventricular block, firs t degree R10.9 Unspecified abdominal pain Office Visit 04/03/2021 11:00a [facility] Surgical Services Katelin Zaragoza NP K43.2 Incisional hernia without obstruction or gangrene Z48.815 Encntr for surgical aftcr fo [facility] sys Office Visit 03/28/2021 10:15a [facility] Cardiology AT [place] Vince Garcia NP I25.10 Athscl heart disease of [place] coronary artery w/o ang pctrs I48.91 Unspecified atrial fibrillat ion Z95.810 Presence of automatic (impla ntable) cardiac defibrillator I42.0 Dilated cardiomyopathy I50.20 Unspecified systolic (conges tive) heart failure N17.9 Acute kidney failure, unspec ified Z82.49 Family hx of ischem heart di s and oth dis of the [facility] sys Z87.891 Personal history of nicotine dependence Z79.01 director transition (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 a 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 Office Visit 03/28/2021 2:30p [facility] Surgical Services Katelin Zaragoza NP K43.2 Incisional hernia without obstruction or gangrene Z48.815 Encntr for surgical aftcr fo [facility]ing surgery on [facility] Office Visit 03/21/2021 3:33a [facility] Surgical Services Johnathan Cornejo Office Visit 03/20/2021 2:43a [facility] Surgical Services Johnathan Cornejo Office Visit 03/19/2021 2:36a [facility] Cardiology [facility] Ramón jurado MD I25.10 Athscl heart disease of [place] coronary artery w/o ang pctrs I50.20 Unspecified [...] ntable) cardiac defibrillator Office Visit 03/19/2021 2:40a [facility] Surgical Services Johnathan Cornejo Office Visit 03/18/2021 2:26a [facility]iology [facility] Johnathan Corcoran I48.91 Unspecified atrial fibrillation I42.0 Dilated cardiomyopathy Z79.01 director transition (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 a 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 Office Visit 03/17/2021 2:29a [facility] Surgical Services Kriss Coon MD Office Visit 03/16/2021 2:32a [facility]iology [facility] Ramón Hong MD N17.9 Acute kidney failure, unspecified R34 Anuria and oliguria F17.200 Nicotine dependence, unspeci fied, uncomplicated Office Visit 03/16/2021 2:30a [facility] Surgical Services Johnathan Cornejo Office Visit 03/15/2021 2:33a [facility] Surgical Services Kraig garsia MD Office Visit 03/14/2021 2:41a [facility] Surgical Services Johnathan Cornejo Office Visit 02/21/2021 10:30a [facility] Cardiology AT [facility] Juan Miguel Abdul MD I47.1 Supraventricular tachycardia I25.5 Ischemic cardiomyopathy I48.91 Unspecified atrial fibrillat ion R06.02 Shortness of breath Office Visit 2021 10:00a [facility] Surgical Services Johnathan Cornejo K43.2 Incisional hernia without obstruction or gangrene Z79.01 director transition (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 a 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 Office Visit 01/15/2021 10:15a [facility] Cardiology AT [place] Juan Miguel alexis MD I48.91 Unspecified atrial fibrillation Z95.810 Presence of automatic (impla ntable) cardiac defibrillator I50.22 Chronic systolic (congestive ) heart failure I34.0 Nonrheumatic mitral (valve) insufficiency I48.0 Paroxysmal atrial fibrillati on E11.9 Type 2 diabetes mellitus wit hout complications I25.5 Ischemic cardiomyopathy E78.2 Mixed hyperlipidemia Z79.4 skilled nursing (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 i nsulin Office Visit 12/14/2020 8:56a [facility] Juan Miguel murray MD N17.9 Acute kidney failure, unspecified I25.5 Ischemic cardiomyopathy E78.5 Hyperlipidemia, unspecified 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 N18.5 Chronic kidney disease, stag e 5 D50.0 Iron deficiency anemia secon allen to blood loss (chronic) I34.9 Nonrheumatic mitral valve di sorder, unspecified Z79.01 skilled nursing (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 a 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 Office Visit 12/13/2020 2:25a [facility]iology [facility] Juan Miguel murray MD I48.91 Unspecified atrial fibrillation N17.9 Acute kidney failure, unspec ified E11.9 Type 2 diabetes mellitus wit hout complications D64.9 Anemia, unspecified E87.5 Hyperkalemia Office Visit 12/12/2020 9:40a [facility] Juan Miguel murray MD N17.9 Acute kidney failure, unspecified R79.89 Other specified abnormal fin dings of blood chemistry I25.5 Ischemic cardiomyopathy E11.9 Type 2 diabetes mellitus wit hout complications I10 Essential (primary) hyperten josselin I48.91 Unspecified atrial fibrillat ion D50.0 Iron deficiency anemia secon allen to blood loss (chronic) Z95.810 Presence of automatic (impla ntable) cardiac defibrillator Office Visit 12/11/2020 2:30p [facility]iology AT [place] Manish gil MD I48.11 Longstanding persistent atrial fibrillat ion D64.9 Anemia, unspecified I50.22 Chronic systolic (congestive ) heart failure Z79.01 director transition (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 a 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 Assessments Date Code Description Provider 05/30/2021 R07.9 Chest pain, unspecified Juan Miguel Abdul MD 05/30/2021 Z95.810 Presence of automatic (implantab le) cardiac defibrillator Juan Miguel Abdul MD 05/30/2021 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 without angina pectoris Juan Miguel Abdul MD 05/30/2021 I50.32 Chronic diastolic (congestive) h eart failure Juan Miguel Abdul MD 05/30/2021 I48.0 Paroxysmal atrial fibrillation W nitesh Abdul MD 05/30/2021 I36.1 Nonrheumatic tricuspid (valve) i nsufficiency Juan Miguel Abdul MD 05/30/2021 Z79.01 skilled nursing (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 antic oagulants Juan Miguel [...] 04/14/2021 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 without angina pectoris Pan Ambrose [...] 03/28/2021 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 without angina pectoris Camden Garcia [...] Presence of automatic (implantab le) cardiac defibrillator [facility] 03/28/2021 Z87.891 Personal history of nicotine dep endence Camden Garcia NP 03/28/2021 Z79.01 skilled nursing (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 antic oagulants Camden Garcia NP 03/28/2021 I42.0 Dilated cardiomyopathy [facility] 03/28/2021 I50.20 Unspecified systolic (congestive ) heart failure [facility] 03/28/2021 Z95.810 Presence of automatic (implantab le) cardiac defibrillator [facility] 03/28/2021 I50.20 Unspecified systolic (congestive ) heart failure [facility] 03/28/2021 Z95.810 Presence of automatic (implantab le) cardiac defibrillator Device Checks 03/28/2021 I42.0 Dilated cardiomyopathy Device [facility] 03/19/2021 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 without angina pectoris Ramón Hong [...] Dilated cardiomyopathy Manish gil MD 03/18/2021 Z79.01 skilled nursing (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 antic oagulants Manish Pacheco [...] ominal wall Jakub Padilla MD 2021 Z79.01 skilled nursing (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 antic oagulants Jakub Padilla [...] hyperlipidemia Juan Miguel loco MD 01/15/2021 Z79.4 skilled nursing (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 insul in Juan Miguel [...] unspecified Juan Miguel Abdul MD 12/14/2020 Z79.01 skilled nursing (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 antic oagulants Juan Miguel [...] art failure Manish Pacheco MD 12/11/2020 Z79.01 skilled nursing (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 antic oagulants Manish Pacheco MD 12/11/2020 I48.0 Paroxysmal atrial fibrillation [facility] 12/11/2020 I50.9 Heart failure, unspecified [facility] 12/11/2020 I48.0 Paroxysmal atrial fibrillation [facility] 12/11/2020 I50.9 Heart failure, unspecified [facility] Plan of Treatment Future Appointment(s):* 06/04/2021 1:00 pm - Jakub Padilla MD at [facility] Surgical Services * 09/05/2021 2:15 pm - Device Checks at [facility] Cardiology AT [facility] * 09/05/2021 2:15 pm - Juan Miguel Abdul MD at [facility] Cardiology AT [facility] Functional Status Description No Information Available Mental Status Description No Information Available Referrals Description No Information Available
--- OUTSIDE RECORDS SUMMARY | 2021-08-23 00:10 | CCD | Continuity of Care Document ---
Author Author Jamar PADILLA MD Organization Unknown Address [address], [address] [place] [address] Phone [phone] Care Team Providers [employer] Name Role Phone Body, Isabel NP AUTM [phone] Marin Montana MD AUTM [phone] Juan Miguel Abdul MD AUTM [phone] Problems Active Problems Provider Date Automatic implantable [...] mouth every day until edema resolves 14tabs Reéne Caruso NP 03/23/20 - 03/27/2021 Digox 125mcg [...] CPT Code Status Date Vaccine Lot # [id number] Given 12/19/2020 Moderna Covid-19 Sars-Cov-2, mRNA, LNP-S, PF, 100 mcg/ 0.5 mL 39057 Given 11/21/2020 Moderna Covid-19 Sars-Cov-2, mRNA, LNP-S, [...] H/L Range Note Laboratory test finding 03/28/2021 [facility] [address] [place] [address] [phone] BNP 1170.4 pg/mL High 0-100 1 Venipuncture DONE - 2 CMP-Male W/LDH,Phosphorus,Uric 02/21/2021 [facility] [address] [place] [address] [phone] LDH 252 U/L High 120-246 Phosphorus 4.1 mg/dL 2.7-4.5 3 Uric Acid 8.5 mg/dL High 2.6-7.2 CMP-Male 02/21/2021 [facility] [address] [place] [address] [phone] Glucose 238 mg/dL High 74-106 4 BUN [...] 1.9-3.7 Calcium 9.6 mg/dL 8.9-10.5 Cbcadp 02/21/2021 [facility] [address] [place] [address] [phone] WBC. 6.06 x10E3/uL 4.2-12.0 RBC 3.93 x10E6/uL Low 4.4-6.0 HGB 12.1 g/dL Low 13.8-18.0 HCT 39.5 % 39-52 MCV 100.5 fL High 80-98 MCH 30.8 pg 27-33 MCHC 30.7 g/dL Low 32-36 RDW 18.2 % High 11.2-15.2 PLT 157 x10E3/uL 135-420 MPV 8.5 fL 7.0-12.3 % Keesha 66.8 % 41.0-80.0 %Lym 23.1 % 10.0-45.2 %[place] 7.2 % 2.0-13.0 %Eos 2.8 % 0.0-8.0 %Baso 0.2 % 0.0-3.0 Neut 4.1 x10E3/uL 2.0-8.1 Lymp 1.4 x10E3/uL 0.6-3.1 [place] 0.4 x10E3/uL 0.0-1.0 Eos 0.2 x10E3/uL 0.0-0.6 Baso 0.0 x10E3/uL 0.0-0.2 Laboratory test finding 02/21/2021 [facility] [address] [place] [address] [phone] TSH3 3.622 mIU/ml 0.350-5.500 Free T4 1.66 ng/dL 0.89-1.80 BNP 2118.0 pg/mL 0-100 10 Venipuncture DONE - BMP-Male 12/11/2020 [facility] [address] [facility] [place] [address] [phone] Glucose 258 mg/dL High 74-106 11 BUN 143 mg/dL 6-20 12 Creatinine 3.5 mg/dL High 0.5-1.3 Sodium 134 mmol/L Low 136-145 13 Potassium 6.3 mmol/L 3.5-5.3 14 Chloride 102 mmol/L 98-107 Co2 20 mEq/L 20-31 Anion Gap 12 mmol/L 7-16 eGFR-male 18 mL/m/1.73m - eGFR-Aa male 21 mL/m/1.73m - 15 Calcium 9.3 mg/dL 8.9-10.5 CBC W/Auto Differential 12/11/2020 [facility] [address] [place] [address] [phone] WBC. 6.21 x10E3/uL 4.2-12.0 RBC 4.42 x10E6/uL 4.4-6.0 HGB 12.1 g/dL Low 13.8-18.0 HCT 38.1 % Low 39-52 MCV 86.2 fL 80-98 MCH 27.5 pg 27-33 MCHC 31.9 g/dL Low 32-36 RDW 21.9 % High 11.2-15.2 PLT 152 x10E3/uL 135-420 MPV 8.2 fL 7.0-12.3 % Keesha 73.1 % 41.0-80.0 %Lym 18.5 % 10.0-45.2 %[place] 5.8 % 2.0-13.0 %Eos 2.3 % 0.0-8.0 %Baso 0.2 % 0.0-3.0 Neut 4.5 x10E3/uL 2.0-8.1 Lymp 1.2 x10E3/uL 0.6-3.1 [place] 0.4 x10E3/uL 0.0-1.0 Eos 0.1 x10E3/uL 0.0-0.6 Baso 0.0 x10E3/uL 0.0-0.2 Laboratory test finding 12/11/2020 [facility] [address] [place] [address] [phone] Venipuncture DONE - 1 Labprint and transmitted at 1217 03/28/21 kk 2 STAT Draw Completed at 1120. SST Drawn as Extra. 3 02/28/2020-According to [employer] - Blood samples from some patients with monoclonal gammopathies may produce falsely elevated phosphorous results with this assay. 4 [place] Diabetes Associ[employer] n (ADA) Recommended Range is 65-99 mg/dL 5 Results Confirmed by Repeat Analysis. Results faxed at 1039 02/22/21 kk 6 Results Confirmed by Repeat Analysis. 7 Normal Kidney Function or Mi ld Disease GFR >59 mL/min/1.73m2 Chronic Kidney Disease GFR 15-59 mL/min/1.73m2 Renal Failure GFR <15 mL/min/1.73m2 8 Effective 03/22/2017: [facility] has indicated interference with the drugs [...] to Xuan at 1039 02/22/21 kk 11 [place] Diabetes Associatio n (ADA) Recommended Range is 65-99 mg/dL 12 Results Confirmed on Dilutio n. Results Called To Yu 1200 12/12/20 ak Labprint and transmitted 1201 12/12/20 ak 13 Results Confirmed by Repeat Analysis. 14 Results Confirmed by Repeat Analysis. specimen not hemolyzed Results Called To Yu 1200 12/12/20 ak Labprint and transmitted 1201 12/12/20 ak 15 Normal Kidney Function or Mi ld Disease GFR >59 mL/min/1.73m2 Chronic Kidney Disease GFR 15-59 mL/min/1.73m2 Renal Failure GFR <15 mL/min/1.73m2 Procedures Date Code Description Status 05/30/2021 32245 Electrocardiogram Complete Compl eted 05/30/2021 16822 Office/Outpatient Established Mo d MDM 30-39 Min Completed 04/18/2021 39820 TCM-Mod Completed 04/14/2021 62460 Hospital Subsequent Care Level 2 Completed 04/13/2021 92240 Hospital Subsequent Care Level 2 Completed 04/13/2021 24401 Electrocardiogram Interpretation & Report Only Completed 04/13/2021 69309 Cardioversion, Elective, Externa l Completed 04/12/2021 67143 Hospital Initial Care Level 1 Co mpleted 03/28/2021 08689 TCM-Mod Completed 03/28/2021 55263 Single Lead Implant Cardioverter -Defibrillator Completed 03/19/2021 78828 Hospital Subsequent Care Level 2 Completed 03/18/2021 29834 Hospital Subsequent Care Level 2 Completed 03/16/2021 53663 Electrocardiogram Interpretation & Report Only Completed 03/16/2021 25458 Hospital Initial Care Level 1 Co mpleted 03/13/2021 47589 Implant For Incisional/Ventral H ernia Repair Completed 03/13/2021 43884 Repair Hernia Incisional/Ventral Recurrent, Reducible Completed 03/13/2021 63270 Remove Support Implant Deep Comp leted 02/21/2021 92459 Office/Outpatient Established Mo d MDM 30-39 Min Completed 02/21/2021 15994 Electrocardiogram Complete Compl eted 2021 80959 Office/Outpatient Established Mo d MDM 30-39 Min Completed 01/15/2021 11871 Office/Outpatient Established Mo d MDM 30-39 Min Completed 01/15/2021 71675 Electrocardiogram Complete Compl eted 12/14/2020 38828 Hospital Discharge Day < 30 Evelyne lilia Completed 12/13/2020 31088 Hospital Subsequent Care Level 2 Completed 12/12/2020 49040 Hospital Initial Care Level 1 Co mpleted 12/11/2020 52558 Office/Outpatient Established Mo d MDM 30-39 Min Completed 12/11/2020 07279 Electrocardiogram Complete Compl eted Medical Devices Description No Information Available Encounters Type Date Location Provider Dx Diagnosis Office Visit 05/30/2021 11:15a [facility] Surgical Services James Cornejo L76.34 Postproc seroma of skin, subcu following other procedure K43.2 Incisional hernia without ob struction or gangrene Z48.815 Encntr for surgical aftcr fo llowing surgery on the dgstv sys Office Visit 05/30/2021 9:45a [facility] Cardiology AT [facility] Juan Miguel Abdul MD R07.89 Other chest pain Z95.810 Presence of automatic (impla ntable) cardiac defibrillator 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 I50.32 Chronic diastolic (congestiv e) heart failure I48.0 Paroxysmal atrial fibrillati on I36.1 Nonrheumatic tricuspid (valv e) insufficiency Z79.01 long-term (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 a 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 E11.9 Type 2 diabetes mellitus wit hout complications I11.0 Hypertensive heart disease w ith heart failure 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 Office Visit 04/30/2021 10:30a [facility] Surgical Services Katelin mckeon, ZULMA Z48.815 Encntr for surgical aftcr following surg terri on the [facility] sys L76.34 Postproc seroma of skin, sub cu following other procedure K43.2 Incisional hernia without ob struction or gangrene Office Visit 04/18/2021 9:30a [facility]iology [facility] Juan Miguel Abdul MD Z95.810 Presence of automatic (impla ntable) cardiac defibrillator I50.23 Acute on chronic systolic (c ongestive) heart failure I25.5 Ischemic cardiomyopathy I34.0 Nonrheumatic mitral (valve) insufficiency E11.9 Type 2 diabetes mellitus wit hout complications Office Visit 04/18/2021 2:00p [facility] Surgical Services Katelin mckeon, [employer] L76.34 Postproc seroma of skin, subcu following other procedure K43.2 Incisional hernia without ob struction or gangrene Z48.815 Encntr for surgical aftcr fo llowing surgery on the [facility] sys Z82.49 Family hx of ischem heart di s and oth dis of the circ sys Office Visit 04/14/2021 3:08a [facility] Surgical Services Pako brewster MD L76.34 Postproc seroma of skin, subcu following other procedure Office Visit 04/14/2021 3:11a [facility] Cardiology [facility] Pan jara MD I50.22 Chronic systolic (congestive) heart fail ure I48.92 Unspecified atrial flutter 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 N18.9 Chronic kidney disease, unsp ecified L76.34 Postproc seroma of skin, sub cu following other procedure 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 Office Visit 04/13/2021 10:12a [facility] Cardiology [facility] Juan Miguel murray MD I48.92 Unspecified atrial flutter I50.9 Heart failure, unspecified N18.9 Chronic kidney disease, unsp ecified L76.34 Postproc seroma of skin, sub cu following other procedure Office Visit 04/12/2021 9:24a [facility] Cardiology [facility] Juan Miguel murray MD I50.9 Heart failure, unspecified I48.91 Unspecified atrial fibrillat ion I44.0 Atrioventricular block, firs t degree R10.9 Unspecified abdominal pain Office Visit 04/03/2021 11:00a [facility] Surgical Services Katelin Zaragoza NP K43.2 Incisional hernia without obstruction or gangrene Z48.815 Encntr for surgical aftcr fo llowing surgery on the dgstv sys Office Visit 03/28/2021 10:15a [facility] Cardiology AT [place] Vince Garcia NP I25.10 Athscl heart disease of [place] coronary artery w/o ang pctrs I48.91 Unspecified atrial fibrillat ion Z95.810 Presence of automatic (impla ntable) cardiac defibrillator I42.0 Dilated cardiomyopathy I50.20 Unspecified systolic (conges tive) heart failure N17.9 Acute kidney failure, unspec ified Z82.49 Family hx of ischem heart di s and oth dis of the circ sys Z87.891 Personal history of nicotine dependence 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 Office Visit 03/28/2021 2:30p [facility] Surgical Services Katelin Zaragoza , ZULMA K43.2 Incisional hernia without obstruction or gangrene Z48.815 Encntr for surgical aftcr fo llowing surgery on the dgstv sys Office Visit 03/21/2021 3:33a [facility] James Cornejo Office Visit 03/20/2021 2:43a [facility] Surgical Services James Cornejo Office Visit 03/19/2021 2:36a [facility] Cardiology [facility] Ramón jurado MD I25.10 Athscl heart disease of [place] coronary artery w/o ang pctrs I50.20 Unspecified [...] ntable) cardiac defibrillator Office Visit 03/19/2021 2:40a [facility] Surgical Services James Cornejo Office Visit 03/18/2021 2:26a [facility] Cardiology [facility] James Corcoran I48.91 Unspecified atrial fibrillation I42.0 Dilated cardiomyopathy 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 Office Visit 03/17/2021 2:29a [facility] Surgical Services Kriss Coon MD Office Visit 03/16/2021 2:32a [facility] Cardiology [facility] Ramón Hong MD N17.9 Acute kidney failure, unspecified R34 Anuria and oliguria F17.200 Nicotine dependence, unspeci fied, uncomplicated Office Visit 03/16/2021 2:30a [facility] James Cornejo Office Visit 03/15/2021 2:33a [facility] Kraig garsia MD Office Visit 03/14/2021 2:41a [facility] James Cornejo Office Visit 02/21/2021 10:30a [facility] Cardiology AT [facility] Juan Miguel Abdul MD I47.1 Supraventricular tachycardia I25.5 Ischemic cardiomyopathy I48.91 Unspecified atrial fibrillat ion R06.02 Shortness of breath Office Visit 2021 10:00a [facility] Surgical Services James Cornejo K43.2 Incisional hernia without obstruction or gangrene Z79.01 long-term (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 a 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 Office Visit 01/15/2021 10:15a [facility] Cardiology [facility] Juan Miguel alexis MD I48.91 Unspecified atrial fibrillation Z95.810 Presence of automatic (impla ntable) cardiac defibrillator I50.22 Chronic systolic (congestive ) heart failure I34.0 Nonrheumatic mitral (valve) insufficiency I48.0 Paroxysmal atrial fibrillati on E11.9 Type 2 diabetes mellitus wit hout complications I25.5 Ischemic cardiomyopathy E78.2 Mixed hyperlipidemia 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 Office Visit 12/14/2020 8:56a [facility] Cardiology [facility] Juan Miguel murray MD N17.9 Acute kidney failure, unspecified I25.5 Ischemic cardiomyopathy E78.5 Hyperlipidemia, unspecified 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 N18.5 Chronic kidney disease, stag e 5 D50.0 Iron deficiency anemia secon allen to blood loss (chronic) I34.9 Nonrheumatic mitral valve di sorder, unspecified 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 Office Visit 12/13/2020 2:25a [facility] Cardiology [facility] Juan Miguel murray MD I48.91 Unspecified atrial fibrillation N17.9 Acute kidney failure, unspec ified E11.9 Type 2 diabetes mellitus wit hout complications D64.9 Anemia, unspecified E87.5 Hyperkalemia Office Visit 12/12/2020 9:40a [facility] Cardiology [facility] Juan Miguel murray MD N17.9 Acute kidney failure, unspecified R79.89 Other specified abnormal fin dings of blood chemistry I25.5 Ischemic cardiomyopathy E11.9 Type 2 diabetes mellitus wit hout complications I10 Essential (primary) hyperten josselin I48.91 Unspecified atrial fibrillat ion D50.0 Iron deficiency anemia secon allen to blood loss (chronic) Z95.810 Presence of automatic (impla ntable) cardiac defibrillator Office Visit 12/11/2020 2:30p [facility] Cardiology AT [place] Manish gil MD I48.11 Longstanding persistent atrial fibrillat ion D64.9 Anemia, unspecified I50.22 Chronic systolic (congestive ) heart failure 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 Assessments Date Code Description Provider 05/30/2021 R07.89 Other chest pain Juan Miguel Abdul MD 05/30/2021 L76.34 Postoperative seroma Jakub alcantar MD 05/30/2021 Z95.810 Presence of automatic (implantab le) cardiac defibrillator Juan Miguel Abdul MD 05/30/2021 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[place] coronary artery without angina pectoris Juan Miguel [...] following surgery on the digestive system Jakub Padilal MD 05/30/2021 Z79.01 long-term (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 antic oagulants Juan Miguel Abdul MD 05/30/2021 E11.9 Type 2 diabetes mellitus without complications Juan Miguel Abdul MD 05/30/2021 I11.0 Hypertensive heart disease with heart failure Juan Miguel Abdul MD 05/30/2021 Z79.4 long-term (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 [...] 04/14/2021 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[place] coronary artery without angina pectoris Pan Ambrose [...] Ambrose MD 04/12/2021 I50.9 Heart failure, unspecified Willi luis Abdul MD 04/12/2021 I48.91 Unspecified atrial fibrillation [...] 03/28/2021 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[place] coronary artery without angina pectoris Camden Garcia NP 03/28/2021 I48.91 Unspecified atrial fibrillation Camden Garcia NP 03/28/2021 Z95.810 Presence of automatic (implantab le) cardiac defibrillator Camden Garcia NP 03/28/2021 I42.0 [facility] 03/28/2021 I42.0 Dilated cardiomyopathy Vince er ZULMA Garcia 03/28/2021 I50.20 Unspecified systolic (congestive ) heart failure Camden Garcia NP 03/28/2021 N17.9 Acute kidney failure, unspecifie d Florentinnelidavid Garcia, ZULMA 03/28/2021 Z82.49 Family history of is chemic heart disease and other diseases of the circulatory system Camden Garcia NP 03/28/2021 Z95.810 Presence of automatic (implantab le) cardiac defibrillator [facility] 03/28/2021 Z87.891 Personal history of nicotine dep endence Camden Garcia NP 03/28/2021 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 Camden Garcia NP 03/28/2021 I42.0 [facility] 03/28/2021 I50.20 Unspecified systolic (congestive ) heart failure [facility] 03/28/2021 Z95.810 Presence of automatic (implantab le) cardiac defibrillator [facility] 03/28/2021 I50.20 Unspecified systolic (congestive ) heart failure [facility] 03/28/2021 Z95.810 Presence of automatic (implantab le) cardiac defibrillator Device Checks 03/28/2021 I42.0 Dilated cardiomyopathy Device Ch ecks 03/19/2021 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[place] coronary artery without angina pectoris Ramón Hong [...] Dilated cardiomyopathy Manish gil MD 03/18/2021 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 Manish Pacheco [...] MD 01/15/2021 I48.0 Paroxysmal atrial fibrillation W illiajames Abdul MD 01/15/2021 E11.9 Type 2 diabetes mellitus without complications Juan Miguel Abdul MD 01/15/2021 I25.5 Ischemic cardiomyopathy Juan Miguel Abdul MD 01/15/2021 E78.2 Mixed hyperlipidemia Juan Miguel loco MD 01/15/2021 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 insul in Juan Miguel [...] unspecified Juan Miguel Abdul MD 12/14/2020 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 Juan Miguel [...] art failure Manish Pacheco MD 12/11/2020 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 Mainsh Pacheco MD 12/11/2020 I48.0 Paroxysmal atrial fibrillation [facility] 12/11/2020 I50.9 Heart failure, unspecified [facility] 12/11/2020 I48.0 Paroxysmal atrial fibrillation [facility] 12/11/2020 I50.9 Heart failure, unspecified [facility] Plan of Treatment Future Appointment(s):* 09/05/2021 2:15 pm - Device Checks at [facility] Cardiology [facility] * 09/05/2021 2:15 pm - Juan Miguel Abdul MD at [facility] Cardiology [facility] 05/30/2021 - Jakub Padilla MD* L76.34 Postoperative seroma* Comments:* The patient has a large postop seroma needs a drain. Contacted radiology today who was willing to do it but the patient had to leave. He comes from [facility] [place] amount of distance. The distal neck and be done in the office I'll obtain a drain he'll come back next week and will get this done. He understands a drain may have to stand for a while * K43.2 Incisional hernia without obstruction or gangrene * Z48.815 Encounter for surgical aftercare following surgery on the digestive system Functional Status Description No Information Available Mental Status Description No Information Available Referrals Description No Information Available
--- OUTSIDE RECORDS SUMMARY | 2021-08-23 00:11 | CCD | Continuity of Care Document ---
Author Author Jamar ABDUL MD Organization Unknown Address [address] [facility] [address] [place] [address] Phone [phone] Care Team Providers Care Clinical Account Specialist Name Role Phone Body, Isabel NP AUTM [phone] Marin Montana MD AUTM [phone] Juan Miguel Abdul MD AUTM [phone] Problems Active Problems Provider Date Automatic implantable cardiac defibrillator in situ Jaun Miguel Abdul MD Onset: 08/05/2012 Coronary arteriosclerosis Juan Miguel Abdul MD Onset: 010 Type 2 diabetes mellitus Juan Miguel Abdul MD Onset: 03/09/20 10 Hyperlipidemia Juan Miguel Abdul MD Onset: 03/09/2010 Essential hypertension Juan Mgiuel Abdul MD Onset: 03/09/2010 Social History Type [...] CPT Code Status Date Vaccine Lot # [id number] Given 12/19/2020 Moderna Covid-19 Sars-Cov-2, mRNA, LNP-S, PF, 100 mcg/ 0.5 mL 21635 Given 11/21/2020 Moderna Covid-19 Sars-Cov-2, mRNA, LNP-S, PF, 100 mcg/ 0.5 mL Vital Signs Date Vital Result Comment 05/30/2021 11:22am Height 74.00 inches 6'2" Weight 229.00 lb BMI (Body Mass Index) 29.4 kg/m2 05/30/2021 9:50am Height 74.00 inches 6'2" Weight 229.38 lb BMI (Body Mass Index) 29.4 kg/m2 BP Systolic 146 mmHg BP Diastolic 70 mmHg Heart Rate 71 /min Results Test Acquired Date Facility Test Result H/L Range Note Laboratory test finding 03/28/2021 [facility] [address] [place] [address] [phone] BNP 1170.4 pg/mL High 0-100 1 Venipuncture DONE - 2 CMP-Male W/LDH,Phosphorus,Uric 02/21/2021 [facility] [address] [place], [place] [id number] [phone] LDH 252 U/L High 120-246 Phosphorus 4.1 mg/dL 2.7-4.5 3 Uric Acid 8.5 mg/dL High 2.6-7.2 CMP-Male 02/21/2021 [facility] [address] [place], [place] [id number] [phone] Glucose 238 mg/dL High 74-106 4 BUN [...] 1.9-3.7 Calcium 9.6 mg/dL 8.9-10.5 Cbcadp 02/21/2021 [facility] [address] [place] [address] [phone] WBC. 6.06 x10E3/uL 4.2-12.0 RBC 3.93 x10E6/uL Low 4.4-6.0 HGB 12.1 g/dL Low 13.8-18.0 HCT 39.5 % 39-52 MCV 100.5 fL High 80-98 MCH 30.8 pg 27-33 MCHC 30.7 g/dL Low 32-36 RDW 18.2 % High 11.2-15.2 PLT 157 x10E3/uL 135-420 MPV 8.5 fL 7.0-12.3 % Keesha 66.8 % 41.0-80.0 %Lym 23.1 % 10.0-45.2 %Robertson 7.2 % 2.0-13.0 %Eos 2.8 % 0.0-8.0 %Baso 0.2 % 0.0-3.0 Neut 4.1 x10E3/uL 2.0-8.1 Lymp 1.4 x10E3/uL 0.6-3.1 Robertson 0.4 x10E3/uL 0.0-1.0 Eos 0.2 x10E3/uL 0.0-0.6 Baso 0.0 x10E3/uL 0.0-0.2 Laboratory test finding 02/21/2021 [facility] [address] [place] [address] [phone] TSH3 3.622 mIU/ml 0.350-5.500 Free T4 1.66 ng/dL 0.89-1.80 BNP 2118.0 pg/mL 0-100 10 Venipuncture DONE - BMP-Male 12/11/2020 [facility] [address] [place] [address] [phone] Glucose 258 mg/dL High 74-106 11 BUN 143 mg/dL 6-20 12 Creatinine 3.5 mg/dL High 0.5-1.3 Sodium 134 mmol/L Low 136-145 13 Potassium 6.3 mmol/L 3.5-5.3 14 Chloride 102 mmol/L 98-107 Co2 20 mEq/L 20-31 Anion Gap 12 mmol/L 7-16 eGFR-male 18 mL/m/1.73m - eGFR-Aa male 21 mL/m/1.73m - 15 Calcium 9.3 mg/dL 8.9-10.5 CBC W/Auto Differential 12/11/2020 [facility] [address] [place] [address] [phone] WBC. 6.21 x10E3/uL 4.2-12.0 RBC 4.42 x10E6/uL 4.4-6.0 HGB 12.1 g/dL Low 13.8-18.0 HCT 38.1 % Low 39-52 MCV 86.2 fL 80-98 MCH 27.5 pg 27-33 MCHC 31.9 g/dL Low 32-36 RDW 21.9 % High 11.2-15.2 PLT 152 x10E3/uL 135-420 MPV 8.2 fL 7.0-12.3 % Keesha 73.1 % 41.0-80.0 %Lym 18.5 % 10.0-45.2 %Robertson 5.8 % 2.0-13.0 %Eos 2.3 % 0.0-8.0 %Baso 0.2 % 0.0-3.0 Neut 4.5 x10E3/uL 2.0-8.1 Lymp 1.2 x10E3/uL 0.6-3.1 Robertson 0.4 x10E3/uL 0.0-1.0 Eos 0.1 x10E3/uL 0.0-0.6 Baso 0.0 x10E3/uL 0.0-0.2 Laboratory test finding 12/11/2020 [facility] [address] [place] [address] [place] [address] [phone] Venipuncture DONE - 1 Labprint and transmitted at 1217 03/28/21 kk 2 STAT Draw Completed at 1120. SST Drawn as Extra. 3 02/28/2020-According to [employer] - Blood samples from some patients with monoclonal gammopathies may produce falsely elevated phosphorous results with this assay. 4 [place] [employer] n (ADA) Recommended Range is 65-99 mg/dL 5 Results Confirmed by Repeat Analysis. Results faxed at 1039 02/22/21 kk 6 Results Confirmed by Repeat Analysis. 7 Normal Kidney Function or Mi ld Disease GFR >59 mL/min/1.73m2 Chronic Kidney Disease GFR 15-59 mL/min/1.73m2 Renal Failure GFR <15 mL/min/1.73m2 8 Effective 03/22/2017: [facility] has indicated interference with the drugs sulfasalazine and sulfapyridine. They suggest collection should occur prior to drug administration due to falsely depressed results. 9 Results may reflect a potent ial interference in Total Protein results in patients receiving dextran as blood volume expanders. 10 Results Confirmed by Repeat Analysis. Results faxed at 1039 02/22/21 kk called to [facility] at 1039 02/22/21 kk 11 [employer] n (ADA) Recommended Range is [...] mL/min/1.73m2 Procedures Date Code Description Status 05/30/2021 79209 Electrocardiogram Complete Compl eted 05/30/2021 63200 Office/Outpatient Established Lo w MDM 20-29 Min Completed 04/18/2021 25909 TCM-Mod Completed 04/14/2021 96720 Hospital Subsequent Care Level 2 Completed 04/13/2021 33604 Hospital Subsequent Care Level 2 Completed 04/13/2021 46017 Electrocardiogram Interpretation & Report Only Completed 04/13/2021 47619 Cardioversion, Elective, Externa l Completed 04/12/2021 88952 Hospital Initial Care Level 1 Co mpleted 03/28/2021 90049 TCM-Mod Completed 03/28/2021 69717 Single Lead Implant Cardioverter -Defibrillator Completed 03/19/2021 01599 Hospital Subsequent Care Level 2 Completed 03/18/2021 47588 Hospital Subsequent Care Level 2 Completed 03/16/2021 93518 Electrocardiogram Interpretation & Report Only Completed 03/16/2021 26440 Hospital Initial Care Level 1 Co mpleted 03/13/2021 41543 Implant For Incisional/Ventral H ernia Repair Completed 03/13/2021 95494 Repair Hernia Incisional/Ventral Recurrent, Reducible Completed 03/13/2021 00607 Remove Support Implant Deep Comp leted 02/21/2021 84984 Office/Outpatient Established Mo d MDM 30-39 Min Completed 02/21/2021 86476 Electrocardiogram Complete Compl eted 2021 00242 Office/Outpatient Established Mo d MDM 30-39 Min Completed 01/15/2021 72369 Office/Outpatient Established Mo d MDM 30-39 Min Completed 01/15/2021 21728 Electrocardiogram Complete Compl eted 12/14/2020 89677 Hospital Discharge Day < 30 Evelyne lilia Completed 12/13/2020 81049 Hospital Subsequent Care Level 2 Completed 12/12/2020 07197 Hospital Initial Care Level 1 Co mpleted 12/11/2020 48029 Office/Outpatient Established Mo d MDM 30-39 Min Completed 12/11/2020 88556 Electrocardiogram Complete Compl eted Medical Devices Description No Information Available Encounters Type Date Location Provider Dx Diagnosis Office Visit 05/30/2021 9:45a [facility]MP Cardiology AT [facility], [place] R07.9 Chest pain, unspecified Z95.810 Presence of automatic (impla ntable) cardiac defibrillator 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 I50.32 Chronic diastolic (congestiv e) heart failure I48.0 Paroxysmal atrial fibrillati on I36.1 Nonrheumatic tricuspid (valv e) insufficiency Z79.01 penitentiary (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 a 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 E11.9 Type 2 diabetes mellitus wit hout complications I13.10 Hyp hrt & chr kdny dis w/o h rt fail, w stg 1-4/unsp chr kdny Office Visit 04/30/2021 10:30a [facility] Surgical Services Katelin mckeon, LAUNDRY AGENT Z48.815 [facility]cntr [facility] L76.34 Postproc seroma of skin, sub cu following other procedure K43.2 Incisional hernia without ob struction or gangrene Office Visit 04/18/2021 9:30a [facility] Cardiology AT [facility] Juan Miguel Abdul MD Z95.810 Presence of automatic (impla ntable) cardiac defibrillator I50.23 Acute on chronic systolic (c ongestive) heart failure I25.5 Ischemic cardiomyopathy I34.0 Nonrheumatic mitral (valve) insufficiency E11.9 Type 2 diabetes mellitus wit hout complications Office Visit 04/18/2021 2:00p [facility] Surgical Services Katelin mckeon, LAUNDRY AGENT L76.34 Postproc seroma of skin, subcu following other procedure K43.2 Incisional hernia without ob struction or gangrene Z48.815 Encntr for surgical aftcr fo llowing surgery on the dgv sys Z82.49 Family hx of ischem heart di s and oth dis of the circ sys Office Visit 04/14/2021 3:08a [facility] Surgical Services Pako brewster MD L76.34 Postproc seroma of skin, subcu following other procedure Office Visit 04/14/2021 3:11a [facility] Cardiology [facility] Pan jara MD I50.22 Chronic systolic (congestive) heart fail ure I48.92 Unspecified atrial flutter 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 N18.9 Chronic kidney disease, unsp ecified L76.34 Postproc seroma of skin, sub cu following other procedure 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 Office Visit 04/13/2021 10:12a [facility] Cardiology Hospital Juan Miguel murray MD I48.92 Unspecified atrial flutter I50.9 Heart failure, unspecified N18.9 Chronic kidney disease, unsp ecified L76.34 Postproc seroma of skin, sub cu following other procedure Office Visit 04/12/2021 9:24a [facility] Cardiology [facility] Juan Miguel murray MD I50.9 Heart failure, unspecified I48.91 Unspecified atrial fibrillat ion I44.0 Atrioventricular block, firs t degree R10.9 Unspecified abdominal pain Office Visit 04/03/2021 11:00a [facility] Surgical Services Katelin Zaragoza NP K43.2 Incisional hernia without obstruction or gangrene Z48.815 Encntr for surgical aftcr fo llowing surgery on the [facility] sys Office Visit 03/28/2021 10:15a [facility] Cardiology AT [place] Vince Garcia NP I25.10 Athscl heart disease of [place] coronary artery w/o ang pctrs I48.91 Unspecified atrial fibrillat ion Z95.810 Presence of automatic (impla ntable) cardiac defibrillator I42.0 Dilated cardiomyopathy I50.20 Unspecified systolic (conges tive) heart failure N17.9 Acute kidney failure, unspec ified Z82.49 Family hx of ischem heart di s and oth dis of the [facility] Z87.891 Personal history of nicotine dependence Z79.01 penitentiary (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 a 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 Office Visit 03/28/2021 2:30p [facility] Surgical Services Katelin Zaragoza NP K43.2 Incisional hernia without obstruction or gangrene Z48.815 Encntr for surgical aftcr fo llowing surgery on the [facility] sys Office Visit 03/21/2021 3:33a [facility] Surgical Services James Cornejo Office Visit 03/20/2021 2:43a [facility] Surgical Services James Cornejo Office Visit 03/19/2021 2:36a [facility] Cardiology [facility] Ramón jurado MD I25.10 Athscl heart disease of [place] coronary artery w/o ang pctrs I50.20 Unspecified [...] Visit 03/19/2021 2:40a [facility] Surgical Services James Cornejo Office Visit 03/18/2021 2:26a [facility] Cardiology [facility] James Corcoran I48.91 Unspecified atrial fibrillation I42.0 Dilated cardiomyopathy Z79.01 intermediate manager (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 a 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 Office Visit 03/17/2021 2:29a [facility] Surgical Services Kriss Coon MD Office Visit 03/16/2021 2:32a [facility] Cardiology [facility] Ramón Hong MD N17.9 Acute kidney failure, unspecified R34 Anuria and oliguria F17.200 Nicotine dependence, unspeci fied, uncomplicated Office Visit 03/16/2021 2:30a [facility] Surgical Services James Cornejo Office Visit 03/15/2021 2:33a [facility] Surgical Services Kraig garsia MD Office Visit 03/14/2021 2:41a [facility] Surgical Services James Cornejo Office Visit 02/21/2021 10:30a [facility] Cardiology AT [facility] Juan Miguel Abdul MD I47.1 Supraventricular tachycardia I25.5 Ischemic cardiomyopathy I48.91 Unspecified atrial fibrillat ion R06.02 Shortness of breath Office Visit 2021 10:00a [facility] Surgical Services James Cornejo K43.2 Incisional hernia without obstruction or gangrene Z79.01 penitentiary (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 a 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 Office Visit 01/15/2021 10:15a [facility]MP Cardiology AT [place] Juan Miguel alexis MD I48.91 Unspecified atrial fibrillation Z95.810 Presence of automatic (impla ntable) cardiac defibrillator I50.22 Chronic systolic (congestive ) heart failure I34.0 Nonrheumatic mitral (valve) insufficiency I48.0 Paroxysmal atrial fibrillati on E11.9 Type 2 diabetes mellitus wit hout complications I25.5 Ischemic cardiomyopathy E78.2 Mixed hyperlipidemia Z79.4 penitentiary (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 i nsulin Office Visit 12/14/2020 8:56a [facility] Cardiology [facility] Juan Miguel murray MD N17.9 Acute kidney failure, unspecified I25.5 Ischemic cardiomyopathy E78.5 Hyperlipidemia, unspecified 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 N18.5 Chronic kidney disease, stag e 5 D50.0 Iron deficiency anemia secon allen to blood loss (chronic) I34.9 Nonrheumatic mitral valve di sorder, unspecified Z79.01 intermediate manager (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 a 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 Office Visit 12/13/2020 2:25a [facility] Cardiology [facility] Juan Miguel murray MD I48.91 Unspecified atrial fibrillation N17.9 Acute kidney failure, unspec ified E11.9 Type 2 diabetes mellitus wit hout complications D64.9 Anemia, unspecified E87.5 Hyperkalemia Office Visit 12/12/2020 9:40a [facility] Juan Miguel murray MD N17.9 Acute kidney [...] Visit 12/11/2020 2:30p [facility] Cardiology AT [place] Manish gil MD I48.11 Longstanding persistent atrial fibrillat ion D64.9 Anemia, unspecified I50.22 Chronic systolic (congestive ) heart failure Z79.01 penitentiary (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 a 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 Assessments Date Code Description Provider 05/30/2021 R07.9 Chest pain, unspecified Juan Miguel Abdul MD 05/30/2021 Z95.810 Presence of automatic (implantab le) cardiac defibrillator Juan Miguel Abdul MD 05/30/2021 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[place] coronary artery without angina pectoris Juan Miguel Abdul MD 05/30/2021 I50.32 Chronic diastolic (congestive) h eart failure Juan Miguel Abdul MD 05/30/2021 I48.0 Paroxysmal atrial fibrillation W illiajames Abdul MD 05/30/2021 I36.1 Nonrheumatic tricuspid (valve) i nsufficiency Juan Miguel Abdul MD 05/30/2021 Z79.01 penitentiary (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 antic oagulants Juan Miguel [...] 04/14/2021 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[place] coronary artery without angina pectoris Pan Ambrose MD 04/14/2021 N18.9 Chronic kidney disease, unspecif ied Pan Ambrose MD 04/14/2021 L76.34 Postprocedural serom a of skin and subcutaneous tissue following other procedure Pna Ambrose MD 04/14/2021 Z95.1 Presence of aortocoronary [...] 03/28/2021 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[place] coronary artery without angina pectoris Camden Garcia [...] of automatic (implantab le) cardiac defibrillator [facility] 03/28/2021 Z87.891 Personal history of nicotine dep endence Camden Garcia NP 03/28/2021 Z79.01 intermediate manager (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 antic oagulants Camden Garcia NP 03/28/2021 I42.0 Dilated cardiomyopathy [facility] 03/28/2021 I50.20 Unspecified systolic (congestive ) heart failure [facility] 03/28/2021 Z95.810 Presence of automatic (implantab le) cardiac defibrillator [facility] 03/28/2021 I50.20 Unspecified systolic (congestive ) heart failure [facility] 03/28/2021 Z95.810 Presence of automatic (implantab le) cardiac defibrillator Device Checks 03/28/2021 I42.0 Dilated cardiomyopathy Device Ch ecks 03/19/2021 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[place] coronary artery without angina pectoris Ramón Hong [...] Dilated cardiomyopathy Manish gil MD 03/18/2021 Z79.01 penitentiary (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 antic oagulants Manish Pacheco [...] wall Jakub Padilla MD 2021 Z79.01 intermediate manager (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 antic oagulants Jakub Padilla [...] Juan Miguel loco MD 01/15/2021 Z79.4 intermediate manager (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 insul in Juan Miguel [...] unspecified Juan Miguel Abdul MD 12/14/2020 Z79.01 intermediate manager (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 antic oagulants Juan Miguel [...] art failure Manish Pacheco MD 12/11/2020 Z79.01 penitentiary (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 antic oagulants Manish Pacheco MD 12/11/2020 I48.0 Paroxysmal atrial fibrillation [facility] 12/11/2020 I50.9 Heart failure, unspecified [facility] 12/11/2020 I48.0 Paroxysmal atrial fibrillation [facility] 12/11/2020 I50.9 Heart failure, unspecified [facility] Plan of Treatment Future Appointment(s):* 09/05/2021 2:15 pm - Device Checks at [facility] Cardiology AT [facility] * 09/05/2021 2:15 pm - Juan Miguel Abdul MD at [facility] Cardiology AT [facility] 04/30/2021 - Katelin Zaragoza NP* Z48.815 Encounter for surgical aftercare following surgery on the digestive system * L76.34 Postprocedural seroma of skin and subcutaneous tissue following other procedure * K43.2 Incisional hernia without obstruction or gangrene Functional Status Description No Information Available Mental Status Description No Information Available Referrals Description No Information Available
--- OUTSIDE RECORDS SUMMARY | 2021-08-23 00:11 | CCD | Continuity of Care Document ---
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 Name Role Phone Body, Isabel MAYA AUTM [phone] Marin Montana MD AUTM [phone] Juan Miguel Abdul MD AUTM [phone] Problems Active Problems Provider Date Automatic implantable [...] CPT Code Status Date Vaccine Lot # [id number] Given 12/19/2020 Moderna Covid-19 Sars-Cov-2, mRNA, LNP-S, PF, 100 mcg/ 0.5 mL [id number] Given 11/21/2020 Moderna Covid-19 Sars-Cov-2, mRNA, LNP-S, [...] H/L Range Note Laboratory test finding 03/28/2021 [facility] [address] [place] [address] [phone] BNP 1170.4 pg/mL High 0-100 1 Venipuncture DONE - 2 CMP-Male W/LDH,Phosphorus,Uric 02/21/2021 [facility] [address] [place], [place] [id number] [phone] LDH 252 U/L High 120-246 Phosphorus 4.1 mg/dL 2.7-4.5 3 Uric Acid 8.5 mg/dL High 2.6-7.2 CMP-Male 02/21/2021 [facility] [address] [place], [place] [id number] [phone] Glucose 238 mg/dL High 74-106 4 BUN [...] 1.9-3.7 Calcium 9.6 mg/dL 8.9-10.5 Cbcadp 02/21/2021 [facility] [address] [place] [phone] WBC. 6.06 x10E3/uL 4.2-12.0 RBC 3.93 x10E6/uL Low 4.4-6.0 HGB 12.1 g/dL Low 13.8-18.0 HCT 39.5 % 39-52 MCV 100.5 fL High 80-98 MCH 30.8 pg 27-33 MCHC 30.7 g/dL Low 32-36 RDW 18.2 % High 11.2-15.2 PLT 157 x10E3/uL 135-420 MPV 8.5 fL 7.0-12.3 % Keesha 66.8 % 41.0-80.0 %Lym 23.1 % 10.0-45.2 %Taliaferro 7.2 % 2.0-13.0 %Eos 2.8 % 0.0-8.0 %Baso 0.2 % 0.0-3.0 Neut 4.1 x10E3/uL 2.0-8.1 Lymp 1.4 x10E3/uL 0.6-3.1 Taliaferro 0.4 x10E3/uL 0.0-1.0 Eos 0.2 x10E3/uL 0.0-0.6 Baso 0.0 x10E3/uL 0.0-0.2 Laboratory test finding 02/21/2021 [facility] [address] [place] [address] [phone] TSH3 3.622 mIU/ml 0.350-5.500 Free T4 1.66 ng/dL 0.89-1.80 BNP 2118.0 pg/mL 0-100 10 Venipuncture DONE - BMP-Male 12/11/2020 [facility] [address] [place] [address] [phone] Glucose 258 mg/dL High 74-106 11 BUN 143 mg/dL 6-20 12 Creatinine 3.5 mg/dL High 0.5-1.3 Sodium 134 mmol/L Low 136-145 13 Potassium 6.3 mmol/L 3.5-5.3 14 Chloride 102 mmol/L 98-107 Co2 20 mEq/L 20-31 Anion Gap 12 mmol/L 7-16 eGFR-male 18 mL/m/1.73m - eGFR-Aa male 21 mL/m/1.73m - 15 Calcium 9.3 mg/dL 8.9-10.5 CBC W/Auto Differential 12/11/2020 [facility] [address] [place] [address] [phone] WBC. 6.21 x10E3/uL 4.2-12.0 RBC 4.42 x10E6/uL 4.4-6.0 HGB 12.1 g/dL Low 13.8-18.0 HCT 38.1 % Low 39-52 MCV 86.2 fL 80-98 MCH 27.5 pg 27-33 MCHC 31.9 g/dL Low 32-36 RDW 21.9 % High 11.2-15.2 PLT 152 x10E3/uL 135-420 MPV 8.2 fL 7.0-12.3 % Keesha 73.1 % 41.0-80.0 %Lym 18.5 % 10.0-45.2 %Taliaferro 5.8 % 2.0-13.0 %Eos 2.3 % 0.0-8.0 %Baso 0.2 % 0.0-3.0 Neut 4.5 x10E3/uL 2.0-8.1 Lymp 1.2 x10E3/uL 0.6-3.1 Taliaferro 0.4 x10E3/uL 0.0-1.0 Eos 0.1 x10E3/uL 0.0-0.6 Baso 0.0 x10E3/uL 0.0-0.2 Laboratory test finding 12/11/2020 [facility] [address] [place] [address] [place] [address] [phone] Venipuncture DONE - 1 Labprint and transmitted at 1217 03/28/21 kk 2 STAT Draw Completed at 1120. SST Drawn as Extra. 3 02/28/2020-According to [employer] - Blood samples from some patients with monoclonal gammopathies may produce falsely elevated phosphorous results with this assay. 4 [place] [employer] n (ADA) Recommended Range is 65-99 mg/dL 5 Results Confirmed by Repeat Analysis. Results faxed at 1039 02/22/21 kk 6 Results Confirmed by Repeat Analysis. 7 Normal Kidney Function or Mi ld Disease GFR >59 mL/min/1.73m2 Chronic Kidney Disease GFR 15-59 mL/min/1.73m2 Renal Failure GFR <15 mL/min/1.73m2 8 Effective 03/22/2017: [facility] has indicated interference with the drugs sulfasalazine and sulfapyridine. They suggest collection should occur prior to drug administration due to falsely depressed results. 9 Results may reflect a potent ial interference in Total Protein results in patients receiving dextran as blood volume expanders. 10 Results Confirmed by Repeat Analysis. Results faxed at 1039 02/22/21 kk called to [facility]uan at 1039 02/22/21 kk 11 [place] Diabetes [employer] n (ADA) Recommended Range is [...] mL/min/1.73m2 Procedures Date Code Description Status 05/30/2021 72952 Electrocardiogram Complete Compl eted 05/30/2021 78894 Office/Outpatient Established Lo w MDM 20-29 Min Completed 04/18/2021 52151 TCM-Mod Completed 04/14/2021 69985 Hospital Subsequent Care Level 2 Completed 04/13/2021 20973 Hospital Subsequent Care Level 2 Completed 04/13/2021 27891 Electrocardiogram Interpretation & Report Only Completed 04/13/2021 03570 Cardioversion, Elective, Externa l Completed 04/12/2021 12426 Hospital Initial Care Level 1 Co mpleted 03/28/2021 09434 TCM-Mod Completed 03/28/2021 79167 Single Lead Implant Cardioverter -Defibrillator Completed 03/19/2021 83313 Hospital Subsequent Care Level 2 Completed 03/18/2021 48973 Hospital Subsequent Care Level 2 Completed 03/16/2021 93921 Electrocardiogram Interpretation & Report Only Completed 03/16/2021 58809 Hospital Initial Care Level 1 Co mpleted 03/13/2021 10804 Implant For Incisional/Ventral H ernia Repair Completed 03/13/2021 83814 Repair Hernia Incisional/Ventral Recurrent, Reducible Completed 03/13/2021 11647 Remove Support Implant Deep Comp leted 02/21/2021 90139 Office/Outpatient Established Mo d MDM 30-39 Min Completed 02/21/2021 37099 Electrocardiogram Complete Compl eted 2021 81815 Office/Outpatient Established Mo d MDM 30-39 Min Completed 01/15/2021 44003 Office/Outpatient Established Mo d MDM 30-39 Min Completed 01/15/2021 99141 Electrocardiogram Complete Compl eted 12/14/2020 14562 Hospital Discharge Day < 30 Evelyne lilia Completed 12/13/2020 74238 Hospital Subsequent Care Level 2 Completed 12/12/2020 59521 Hospital Initial Care Level 1 Co mpleted 12/11/2020 69314 Office/Outpatient Established Mo d MDM 30-39 Min Completed 12/11/2020 72702 Electrocardiogram Complete Compl eted Medical Devices Description No Information Available Encounters Type Date Location Provider Dx Diagnosis Office Visit 05/30/2021 9:45a [facility]MP Cardiology AT [facility], MD R07.9 Chest pain, unspecified Z95.810 Presence [...] 1-4/unsp chr kdny Office Visit 04/30/2021 10:30a [facility] Surgical Services Katelin mckeon, SAL[employer] Z48.815 Encntr for surgical aftcr [facility] L76.34 Postproc seroma of skin, sub cu following other procedure K43.2 Incisional hernia without ob struction or gangrene Office Visit 04/18/2021 9:30a [facility] Cardiology AT [facility] Juan Miguel Abdul MD Z95.810 Presence of automatic (impla ntable) cardiac defibrillator I50.23 Acute on chronic systolic (c ongestive) heart failure I25.5 Ischemic cardiomyopathy I34.0 Nonrheumatic mitral (valve) insufficiency E11.9 Type 2 diabetes mellitus wit hout complications Office Visit 04/18/2021 2:00p [facility] Surgical Services Katelin mckeon, SALES [employer] L76.34 Postproc seroma of skin, subcu following other procedure K43.2 Incisional hernia without ob struction or gangrene Z48.815 Encntr for surgical aftcr fo llowing surgery on the dgv sys Z82.49 Family hx of ischem heart di s and oth dis of the circ sys Office Visit 04/14/2021 3:08a [facility] Surgical Services Pako brewster MD L76.34 Postproc seroma of skin, subcu following other procedure Office Visit 04/14/2021 3:11a [facility] Cardiology [facility] Pan jara MD I50.22 Chronic systolic (congestive) heart fail ure I48.92 Unspecified atrial flutter 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 N18.9 Chronic kidney disease, unsp ecified L76.34 Postproc seroma of skin, sub cu following other procedure 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 Office Visit 04/13/2021 10:12a [facility] Hospital Juan Miguel murray MD I48.92 Unspecified atrial flutter I50.9 Heart failure, unspecified N18.9 Chronic kidney disease, unsp ecified L76.34 Postproc seroma of skin, sub cu following other procedure Office Visit 04/12/2021 9:24a [facility] Cardiology [facility] Juan Miguel murray MD I50.9 Heart failure, unspecified I48.91 Unspecified atrial fibrillat ion I44.0 Atrioventricular block, firs t degree R10.9 Unspecified abdominal pain Office Visit 04/03/2021 11:00a [facility] Surgical Services Katelin Zaragoza NP K43.2 Incisional hernia without obstruction or gangrene Z48.815 Encntr for surgical aftcr fo llowing surgery on the [facility] sys Office Visit 03/28/2021 10:15a [facility] Cardiology AT [place] Vince Garcia NP I25.10 Athscl heart disease of [place] coronary artery w/o ang pctrs I48.91 Unspecified atrial fibrillat ion Z95.810 Presence of automatic (impla ntable) cardiac defibrillator I42.0 Dilated cardiomyopathy I50.20 Unspecified systolic (conges tive) heart failure N17.9 Acute kidney failure, unspec ified Z82.49 Family hx of ischem heart di s and oth dis of the [facility] Z87.891 Personal history of nicotine dependence Z79.01 lobsterman (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 Office Visit 03/28/2021 2:30p [facility] Surgical Services Katelin Zaragoza NP K43.2 Incisional hernia without obstruction or gangrene Z48.815 Encntr for surgical aftcr fo llowing surgery on the [facility] sys Office Visit 03/21/2021 3:33a [facility] Surgical Services James Cornejo Office Visit 03/20/2021 2:43a [facility] Surgical Services James Cornejo Office Visit 03/19/2021 2:36a [facility] Cardiology [facility] Ramón jurado MD I25.10 Athscl heart disease of [place] coronary artery w/o ang pctrs I50.20 Unspecified [...] ntable) cardiac defibrillator Office Visit 03/19/2021 2:40a [facility] Surgical Services James Cornejo Office Visit 03/18/2021 2:26a [facility] Cardiology [facility] James Corcoran I48.91 Unspecified atrial fibrillation I42.0 Dilated cardiomyopathy Z79.01 penitentiary (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 a 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 Office Visit 03/17/2021 2:29a [facility] Surgical Services Kriss Coon MD Office Visit 03/16/2021 2:32a [facility] Cardiology [facility] Ramón Hong MD N17.9 Acute kidney failure, unspecified R34 Anuria and oliguria F17.200 Nicotine dependence, unspeci fied, uncomplicated Office Visit 03/16/2021 2:30a [facility] Surgical Services James Cornejo Office Visit 03/15/2021 2:33a [facility] Surgical Services Kraig garsia MD Office Visit 03/14/2021 2:41a [facility] Surgical Services James Cornejo Office Visit 02/21/2021 10:30a [facility] Cardiology AT [facility] Juan Miguel Abdul MD I47.1 Supraventricular tachycardia I25.5 Ischemic cardiomyopathy I48.91 Unspecified atrial fibrillat ion R06.02 Shortness of breath Office Visit 2021 10:00a [facility] Surgical Services James Cornejo K43.2 Incisional hernia without obstruction or gangrene Z79.01 penitentiary (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 a 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 Office Visit 01/15/2021 10:15a [facility] Cardiology AT [place] Juan Miguel alexis MD I48.91 Unspecified atrial fibrillation Z95.810 Presence of automatic (impla ntable) cardiac defibrillator I50.22 Chronic systolic (congestive ) heart failure I34.0 Nonrheumatic mitral (valve) insufficiency I48.0 Paroxysmal atrial fibrillati on E11.9 Type 2 diabetes mellitus wit hout complications I25.5 Ischemic cardiomyopathy E78.2 Mixed hyperlipidemia Z79.4 lobsterman (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 i nsulin Office Visit 12/14/2020 8:56a [facility] Cardiology [facility] Juan Miguel murray MD N17.9 Acute kidney failure, unspecified I25.5 Ischemic cardiomyopathy E78.5 Hyperlipidemia, unspecified 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 N18.5 Chronic kidney disease, stag e 5 D50.0 Iron deficiency anemia secon allen to blood loss (chronic) I34.9 Nonrheumatic mitral valve di sorder, unspecified Z79.01 lobsterman (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 a 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 Office Visit 12/13/2020 2:25a [facility] Cardiology [facility] Juan Miguel murray MD I48.91 Unspecified atrial fibrillation N17.9 Acute kidney failure, unspec ified E11.9 Type 2 diabetes mellitus wit hout complications D64.9 Anemia, unspecified E87.5 Hyperkalemia Office Visit 12/12/2020 9:40a [facility] Juan Miguel murray MD N17.9 Acute kidney failure, unspecified R79.89 Other specified abnormal fin dings of blood chemistry I25.5 Ischemic cardiomyopathy E11.9 Type 2 diabetes mellitus wit hout complications I10 Essential (primary) hyperten josselin I48.91 Unspecified atrial fibrillat ion D50.0 Iron deficiency anemia secon allen to blood loss (chronic) Z95.810 Presence of automatic (impla ntable) cardiac defibrillator Office Visit 12/11/2020 2:30p [facility] Cardiology AT [place] Manish gil MD I48.11 Longstanding persistent atrial fibrillat ion D64.9 Anemia, unspecified I50.22 Chronic systolic (congestive ) heart failure Z79.01 penitentiary (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 a 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 Assessments Date Code Description Provider 05/30/2021 R07.9 Chest pain, unspecified Juan Miguel Abdul MD 05/30/2021 Z95.810 Presence of automatic (implantab le) cardiac defibrillator Juan Miguel Abdul MD 05/30/2021 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[place] coronary artery without angina pectoris Juan Miguel [...] 04/14/2021 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[place] coronary artery without angina pectoris [facility] [...] Abdul MD 04/12/2021 I48.91 Unspecified atrial fibrillation JuanM iguel Abdul MD 04/12/2021 I44.0 Atrioventricular block, first [...] 03/28/2021 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[place] coronary artery without angina pectoris Camden Garcia [...] dep endence Camden Garcia NP 03/28/2021 Z79.01 lobsterman (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 antic oagulants Camden Garcia [...] 03/19/2021 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[place] coronary artery without angina pectoris Ramón Hong [...] ominal wall Jakub Padilla MD 2021 Z79.01 penitentiary (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 antic oagulants Jakub Padilla [...] hyperlipidemia Juan Miguel loco MD 01/15/2021 Z79.4 penitentiary (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 insul in Juan Miguel [...] unspecified Juan Miguel Abdul MD 12/14/2020 Z79.01 lobsterman (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 antic oagulants Juan Miguel [...] art failure Manish Pacheco MD 12/11/2020 Z79.01 lobsterman (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 antic oagulants Manish Pacheco MD 12/11/2020 I48.0 Paroxysmal atrial fibrillation I [facility] 12/11/2020 I50.9 Heart failure, unspecified [facility] 12/11/2020 I48.0 Paroxysmal atrial fibrillation [facility] 12/11/2020 I50.9 Heart failure, unspecified [facility] Plan of Treatment Future Appointment(s):* 09/05/2021 2:15 pm - Device Checks at [facility] Cardiology AT [facility] * 09/05/2021 2:15 pm - Juan Miguel Abdul MD at [facility] Cardiology AT [facility] 04/30/2021 - Katelin Zaragoza NP* Z48.815 Encounter for surgical aftercare following surgery on the digestive system * L76.34 Postprocedural seroma of skin and subcutaneous tissue following other procedure * K43.2 Incisional hernia without obstruction or gangrene Functional Status Description No Information Available Mental Status Description No Information Available Referrals Description No Information Available
--- OUTSIDE RECORDS SUMMARY | 2021-08-23 00:11 | CCD | Continuity of Care Document ---
Author Author Jamar ABDUL MD Organization Unknown Address [address] [place] [address] Phone [phone] Care Team Providers Care Textile Converter Name Role Phone Body, Isabel NP AUTM [phone] Marin Montana MD AUTM [phone] Juan Miguel Abdul MD AUTM [phone] Problems Active Problems Provider Date Automatic implantable [...] CPT Code Status Date Vaccine Lot # [id number] Given 12/19/2020 Moderna Covid-19 Sars-Cov-2, mRNA, LNP-S, PF, 100 mcg/ 0.5 mL 29036 Given 11/21/2020 Moderna Covid-19 Sars-Cov-2, mRNA, LNP-S, [...] H/L Range Note Laboratory test finding 03/28/2021 [facility] [address] [place] [address] [phone] BNP 1170.4 pg/mL High 0-100 1 Venipuncture DONE - 2 CMP-Male W/LDH,Phosphorus,Uric 02/21/2021 [facility] [address], [place] [id number] [phone] LDH 252 U/L High 120-246 Phosphorus 4.1 mg/dL 2.7-4.5 3 Uric Acid 8.5 mg/dL High 2.6-7.2 CMP-Male 02/21/2021 [facility] [address] [place] [address] [phone] Glucose 238 mg/dL High 74-106 4 BUN [...] 1.9-3.7 Calcium 9.6 mg/dL 8.9-10.5 Cbcadp 02/21/2021 [facility] [address] [place] [address] [phone] WBC. 6.06 x10E3/uL 4.2-12.0 RBC 3.93 x10E6/uL Low 4.4-6.0 HGB 12.1 g/dL Low 13.8-18.0 HCT 39.5 % 39-52 MCV 100.5 fL High 80-98 MCH 30.8 pg 27-33 MCHC 30.7 g/dL Low 32-36 RDW 18.2 % High 11.2-15.2 PLT 157 x10E3/uL 135-420 MPV 8.5 fL 7.0-12.3 % Keesha 66.8 % 41.0-80.0 %Lym 23.1 % 10.0-45.2 %[place] 7.2 % 2.0-13.0 %Eos 2.8 % 0.0-8.0 %Baso 0.2 % 0.0-3.0 Neut 4.1 x10E3/uL 2.0-8.1 Lymp 1.4 x10E3/uL 0.6-3.1 [place] 0.4 x10E3/uL 0.0-1.0 Eos 0.2 x10E3/uL 0.0-0.6 Baso 0.0 x10E3/uL 0.0-0.2 Laboratory test finding 02/21/2021 [facility] [address] [place] [address] [phone] TSH3 3.622 mIU/ml 0.350-5.500 Free T4 1.66 ng/dL 0.89-1.80 BNP 2118.0 pg/mL 0-100 10 Venipuncture DONE - BMP-Male 12/11/2020 [facility] [address] [place] [address] [phone] Glucose 258 mg/dL High 74-106 11 BUN 143 mg/dL 6-20 12 Creatinine 3.5 mg/dL High 0.5-1.3 Sodium 134 mmol/L Low 136-145 13 Potassium 6.3 mmol/L 3.5-5.3 14 Chloride 102 mmol/L 98-107 Co2 20 mEq/L 20-31 Anion Gap 12 mmol/L 7-16 eGFR-male 18 mL/m/1.73m - eGFR-Aa male 21 mL/m/1.73m - 15 Calcium 9.3 mg/dL 8.9-10.5 CBC W/Auto Differential 12/11/2020 [facility] [address] [place] [address] [phone] WBC. 6.21 x10E3/uL 4.2-12.0 RBC 4.42 x10E6/uL 4.4-6.0 HGB 12.1 g/dL Low 13.8-18.0 HCT 38.1 % Low 39-52 MCV 86.2 fL 80-98 MCH 27.5 pg 27-33 MCHC 31.9 g/dL Low 32-36 RDW 21.9 % High 11.2-15.2 PLT 152 x10E3/uL 135-420 MPV 8.2 fL 7.0-12.3 % [place] 73.1 % 41.0-80.0 %Lym 18.5 % 10.0-45.2 %[place] 5.8 % 2.0-13.0 %Eos 2.3 % 0.0-8.0 %Baso 0.2 % 0.0-3.0 Neut 4.5 x10E3/uL 2.0-8.1 Lymp 1.2 x10E3/uL 0.6-3.1 [place] 0.4 x10E3/uL 0.0-1.0 Eos 0.1 x10E3/uL 0.0-0.6 Baso 0.0 x10E3/uL 0.0-0.2 Laboratory test finding 12/11/2020 [facility] [address] [place] [address] [phone] Venipuncture DONE - 1 Labprint and transmitted at 1217 03/28/21 kk 2 STAT Draw Completed at 1120. SST Drawn as Extra. 3 02/28/2020-According to [facility] - Blood samples from some patients with monoclonal gammopathies may produce falsely elevated phosphorous results with this assay. 4 [place] Diabetes Associ[employer] n (ADA) Recommended Range is 65-99 mg/dL 5 Results Confirmed by Repeat Analysis. Results faxed at 1039 02/22/21 kk 6 Results Confirmed by Repeat Analysis. 7 Normal Kidney Function or Mi ld Disease GFR >59 mL/min/1.73m2 Chronic Kidney Disease GFR 15-59 mL/min/1.73m2 Renal Failure GFR <15 mL/min/1.73m2 8 Effective 03/22/2017: [facility] has indicated interference with the drugs [...] to Xuan at 1039 02/22/21 kk 11 [place] Diabetes Associatio n (ADA) Recommended Range is [...] mL/min/1.73m2 Procedures Date Code Description Status 05/30/2021 67839 Electrocardiogram Complete Compl eted 05/30/2021 91434 Office/Outpatient Established Lo w MDM 20-29 Min Completed 04/18/2021 15779 TCM-Mod Completed 04/14/2021 04559 Hospital Subsequent Care Level 2 Completed 04/13/2021 91344 Hospital Subsequent Care Level 2 Completed 04/13/2021 15081 Electrocardiogram Interpretation & Report Only Completed 04/13/2021 88210 Cardioversion, Elective, Externa l Completed 04/12/2021 09368 Hospital Initial Care Level 1 Co mpleted 03/28/2021 58943 TCM-Mod Completed 03/28/2021 27138 Single Lead Implant Cardioverter -Defibrillator Completed 03/19/2021 57404 Hospital Subsequent Care Level 2 Completed 03/18/2021 27401 Hospital Subsequent Care Level 2 Completed 03/16/2021 95170 Electrocardiogram Interpretation & Report Only Completed 03/16/2021 85436 Hospital Initial Care Level 1 Co mpleted 03/13/2021 64348 Implant For Incisional/Ventral H ernia Repair Completed 03/13/2021 11383 Repair Hernia Incisional/Ventral Recurrent, Reducible Completed 03/13/2021 29330 Remove Support Implant Deep Comp leted 02/21/2021 66081 Office/Outpatient Established Mo d MDM 30-39 Min Completed 02/21/2021 00475 Electrocardiogram Complete Compl eted 2021 03423 Office/Outpatient Established Mo d MDM 30-39 Min Completed 01/15/2021 73375 Office/Outpatient Established Mo d MDM 30-39 Min Completed 01/15/2021 46743 Electrocardiogram Complete Compl eted 12/14/2020 12771 Hospital Discharge Day < 30 Evelyne lilia Completed 12/13/2020 79210 Hospital Subsequent Care Level 2 Completed 12/12/2020 56529 Hospital Initial Care Level 1 Co mpleted 12/11/2020 24529 Office/Outpatient Established Mo d MDM 30-39 Min Completed 12/11/2020 04331 Electrocardiogram Complete Compl eted Medical Devices Description No Information Available Encounters Type Date Location Provider Dx Diagnosis Office Visit 05/30/2021 9:45a [facility] Cardiology AT [facility] Juan Miguel Abdul MD R07.9 Chest [...] w/o h rt fail, w stg 1-4/unsp [facility] kdny Office Visit 04/30/2021 10:30a [facility] Surgical Services Katelin mckeon, SPANISH LINGUIST Z48.815 Encntr for surgical aftcr following [facility] L76.34 Postproc seroma of skin, sub cu following other procedure K43.2 Incisional hernia without ob struction or gangrene Office Visit 04/18/2021 9:30a [facility] Cardiology AT [facility] Juan Miguel Abdul MD Z95.810 Presence of automatic (impla ntable) cardiac defibrillator I50.23 Acute on chronic systolic (c ongestive) heart failure I25.5 Ischemic cardiomyopathy I34.0 Nonrheumatic mitral (valve) insufficiency E11.9 Type 2 diabetes mellitus wit hout complications Office Visit 04/18/2021 2:00p [facility] Surgical Services Katelin mckeon, SPANISH LINGUIST L76.34 Postproc seroma of skin, subcu following other procedure K43.2 Incisional hernia without ob struction or gangrene Z48.815 Encntr for surgical aftcr fo llowing surgery on the dgv sys Z82.49 Family hx of ischem heart di s and oth dis of the circ sys Office Visit 04/14/2021 3:08a [facility] Surgical Services Pako brewster MD L76.34 Postproc seroma of skin, subcu following other procedure Office Visit 04/14/2021 3:11a [facility] Hospital Pan jara MD I50.22 Chronic systolic (congestive) heart fail ure I48.92 Unspecified atrial flutter 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 N18.9 Chronic kidney disease, unsp ecified L76.34 Postproc seroma of skin, sub cu following other procedure 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 Office Visit 04/13/2021 10:12a [facility] Hospital Juan Miguel murray MD I48.92 Unspecified atrial flutter I50.9 Heart failure, unspecified N18.9 Chronic kidney disease, unsp ecified L76.34 Postproc seroma of skin, sub cu following other procedure Office Visit 04/12/2021 9:24a [facility] Cardiology [facility] Juan Miguel murray MD I50.9 Heart failure, unspecified I48.91 Unspecified atrial fibrillat ion I44.0 Atrioventricular block, firs t degree R10.9 Unspecified abdominal pain Office Visit 04/03/2021 11:00a [facility] Surgical Services Katelin Zaragoza NP K43.2 Incisional hernia without obstruction or gangrene Z48.815 Encntr for surgical aftcr fo llowing surgery on the [facility] sys Office Visit 03/28/2021 10:15a [facility] Cardiology AT [place] Vince Garcia NP I25.10 Athscl heart disease of [place] coronary artery w/o ang pctrs I48.91 Unspecified atrial fibrillat ion Z95.810 Presence of automatic (impla ntable) cardiac defibrillator I42.0 Dilated cardiomyopathy I50.20 Unspecified systolic (conges tive) heart failure N17.9 Acute kidney failure, unspec ified Z82.49 Family hx of ischem heart di s and oth dis of the [facility] sys Z87.891 Personal history of nicotine dependence 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 Office Visit 03/28/2021 2:30p [facility] Surgical Services Katelin Zaragoza NP K43.2 Incisional hernia without obstruction or gangrene Z48.815 Encntr for surgical aftcr fo llowing surgery on the [facility] sys Office Visit 03/21/2021 3:33a [facility] Surgical Services Johnathan Cornejo Office Visit 03/20/2021 2:43a [facility] Surgical Services Johnathan Cornejo Office Visit 03/19/2021 2:36a [facility] Cardiology [facility] Ramón jurado MD I25.10 Athscl heart disease of [place] coronary artery w/o ang pctrs I50.20 Unspecified [...] ntable) cardiac defibrillator Office Visit 03/19/2021 2:40a [facility] Surgical Services Johnathan Cornejo Office Visit 03/18/2021 2:26a [facility] Cardiology [facility] Johnathan Corcoran I48.91 Unspecified atrial fibrillation I42.0 Dilated cardiomyopathy Z79.01 jail (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 a 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 Office Visit 03/17/2021 2:29a [facility] Surgical Services Kriss Coon MD Office Visit 03/16/2021 2:32a [facility] Cardiology [facility] Ramón Hong MD N17.9 Acute kidney failure, unspecified R34 Anuria and oliguria F17.200 Nicotine dependence, unspeci fied, uncomplicated Office Visit 03/16/2021 2:30a [facility] Surgical Services Johnathan Cornejo Office Visit 03/15/2021 2:33a [facility] Surgical Services Kraig garsia MD Office Visit 03/14/2021 2:41a [facility] Surgical Services Johnathan Cornejo Office Visit 02/21/2021 10:30a [facility] Cardiology AT [facility] Juan Miguel Abdul MD I47.1 Supraventricular tachycardia I25.5 Ischemic cardiomyopathy I48.91 Unspecified atrial fibrillat ion R06.02 Shortness of breath Office Visit 2021 10:00a [facility] Surgical Services Johnathan Cornejo K43.2 Incisional hernia without obstruction or gangrene 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 Office Visit 01/15/2021 10:15a [facility] Cardiology AT [place] Juan Miguel alexis MD I48.91 Unspecified atrial fibrillation Z95.810 Presence of automatic (impla ntable) cardiac defibrillator I50.22 Chronic systolic (congestive ) heart failure I34.0 Nonrheumatic mitral (valve) insufficiency I48.0 Paroxysmal atrial fibrillati on E11.9 Type 2 diabetes mellitus wit hout complications I25.5 Ischemic cardiomyopathy E78.2 Mixed hyperlipidemia Z79.4 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 (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 i nsulin Office Visit 12/14/2020 8:56a [facility] Cardiology [facility] Juan Miguel murray MD N17.9 Acute kidney failure, unspecified I25.5 Ischemic cardiomyopathy E78.5 Hyperlipidemia, unspecified 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 N18.5 Chronic kidney disease, stag e 5 D50.0 Iron deficiency anemia secon allen to blood loss (chronic) I34.9 Nonrheumatic mitral valve di sorder, unspecified 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 Office Visit 12/13/2020 2:25a [facility] Cardiology [facility] Juan Miguel murray MD I48.91 Unspecified atrial fibrillation N17.9 Acute kidney failure, unspec ified E11.9 Type 2 diabetes mellitus wit hout complications D64.9 Anemia, unspecified E87.5 Hyperkalemia Office Visit 12/12/2020 9:40a [facility] Cardiology [facility] Juan Miguel murray MD N17.9 Acute kidney failure, unspecified R79.89 Other specified abnormal fin dings of blood chemistry I25.5 Ischemic cardiomyopathy E11.9 Type 2 diabetes mellitus wit hout complications I10 Essential (primary) hyperten josselin I48.91 Unspecified atrial fibrillat ion D50.0 Iron deficiency anemia secon allen to blood loss (chronic) Z95.810 Presence of automatic (impla ntable) cardiac defibrillator Office Visit 12/11/2020 2:30p [facility] Cardiology AT [place] Manish gil MD I48.11 Longstanding persistent atrial fibrillat ion D64.9 Anemia, unspecified I50.22 Chronic systolic (congestive ) heart failure 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 Assessments Date Code Description Provider 05/30/2021 R07.9 Chest pain, unspecified Juan Miguel Abdul MD 05/30/2021 Z95.810 Presence of automatic (implantab le) cardiac defibrillator Juan Miguel Abdul MD 05/30/2021 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 without angina pectoris Juan Miguel Abdul MD 05/30/2021 I50.32 Chronic diastolic (congestive) h eart failure Juan Miguel Abdul MD 05/30/2021 I48.0 Paroxysmal atrial fibrillation W nitesh Abdul MD 05/30/2021 I36.1 Nonrheumatic tricuspid (valve) i nsufficiency Juan Miguel Abdul MD 05/30/2021 Z79.01 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 (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 antic oagulants Juan [...] I34.0 Nonrheumatic mitral (valve) insu fficiency Juan Mgiuel Abdul MD 04/18/2021 E11.9 Type 2 diabetes mellitus without complications Juan Miguel Abdul MD 04/14/2021 L76.34 Postprocedural serom a of skin and subcutaneous tissue following other procedure Pako Masterson MD 04/14/2021 I50.22 Chronic systolic (congestive) he art failure Pan Ambrose MD 04/14/2021 I48.92 Unspecified atrial flutter Roz Ambrose MD 04/14/2021 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 without angina pectoris Pan Ambrose [...] 03/28/2021 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 without angina pectoris Camden Garcia [...] Presence of automatic (implantab le) cardiac defibrillator [facility] 03/28/2021 Z87.891 Personal history of nicotine dep endence Camden Garcia NP 03/28/2021 Z79.01 jail (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 antic oagulants Camden Garcia NP 03/28/2021 I42.0 Dilated cardiomyopathy [facility] 03/28/2021 I50.20 Unspecified systolic (congestive ) heart failure [facility] 03/28/2021 Z95.810 Presence of automatic (implantab le) cardiac defibrillator [facility] 03/28/2021 I50.20 Unspecified systolic (congestive ) heart failure [facility] 03/28/2021 Z95.810 Presence of automatic (implantab le) cardiac defibrillator [facility] 03/28/2021 I42.0 Dilated cardiomyopathy Device [facility] 03/19/2021 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 without angina pectoris Ramón Hong [...] cardiomyopathy Manish gil MD 03/18/2021 Z79.01 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 (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 antic oagulants Manish [...] wall Jakub Padilla MD 2021 Z79.01 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 (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 antic oagulants Jakub [...] hyperlipidemia Juan Miguel loco MD 01/15/2021 Z79.4 jail (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 insul in [...] secondary to blood loss (chronic) Juan Miguel bAdul MD 12/14/2020 I34.9 Nonrheumatic mitral valve disord er, unspecified Juan Miguel Abdul MD 12/14/2020 Z79.01 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 (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 antic oagulants Juan [...] art failure Manish Pacheco MD 12/11/2020 Z79.01 jail (current) use of antic oagulants Manish Pacheco MD 12/11/2020 I48.0 Paroxysmal atrial fibrillation [facility] 12/11/2020 I50.9 Heart failure, unspecified [facility] 12/11/2020 I48.0 Paroxysmal atrial fibrillation [facility] 12/11/2020 I50.9 Heart failure, unspecified [facility] Plan of Treatment Future Appointment(s):* 06/04/2021 1:00 pm - Jakub Padilla MD at [facility] Surgical Services * 09/05/2021 2:15 pm - Device Checks at [facility] Cardiology AT [facility] * 09/05/2021 2:15 pm - Juan Miguel Abdul MD at [facility] Cardiology AT [facility] 04/30/2021 - Katelin Zaragoza NP* Z48.815 Encounter for surgical aftercare following surgery on the digestive system * L76.34 Postprocedural seroma of skin and subcutaneous tissue following other procedure * K43.2 Incisional hernia without obstruction or gangrene Functional Status Description No Information Available Mental Status Description No Information Available Referrals Description No Information Available
[2021-08-23] MEDS ORDERED: MOM 30ML SUSPENSION UDC PO PRN (00:30)
[2021-08-23] MEDS ORDERED: ACETAMINOPHEN TAB 650MG DOSE (2X325MG) PO PRN (00:30)
[2021-08-23] MEDS ORDERED: MAALOX 30 ML SUSP *UDC PO PRN (00:30)
--- NOTE | 2021-08-23 00:31 | REPVR ---
PROCEDURE INFORMATION: Exam: XR Chest Exam date and time: 08/22/2021 10:55 PM Age: 66 years old Clinical indication: Cough; Additional info: Coronavirus workup TECHNIQUE: Imaging protocol: XR of the chest. Views: 1 view. COMPARISON: CR PORTABLE CHEST X-RAY 03/11/2020 4:56 PM FINDINGS: Tubes, catheters and devices: Pacemaker in expected location. Lungs: Large confluent areas of airspace consolidation in both lungs. No masses are seen. Pleural spaces: No pleural effusion. No pneumothorax. Heart/Mediastinum: Prominent cardiomegaly. Bones/joints: Previous sternotomy. IMPRESSION: 1. Bilateral pneumonia with extensive airspace opacities in both lungs. 2. Cardiomegaly. Electronically signed by: Nghia Tello On 08/23/2021 00:31:18 AM
--- OUTSIDE RECORDS SUMMARY | 2021-08-23 00:33 | CCD ---
Author Author [facility] Organization [facility] Address Unknown Phone Unavailable Care Team Providers Care Last Sorter Name Role Phone DAVID, Darrion FOSTER MD Unavailable Unavailable SEMEL, Darrion FOSTER MD Unavailable Unavailable SEMEL, Darrion FOSTER MD Unavailable Unavailable SEMEL, Darrion FOSTER MD Unavailable Unavailable SEMEL, Darrion FOSTER MD Unavailable Unavailable SEMEL, Darrion FOSTER MD Unavailable Unavailable SEMEL, Darrion FOSTER MD Unavailable Unavailable SEMEL, Darrion FOSTER MD Unavailable Unavailable SEMEL, Darrion FOSTER MD Unavailable Unavailable SEMEL, Darrion FOSTER MD Unavailable Unavailable SEMEL, Darrion FOSTER MD Unavailable Unavailable SEMEL, Darrion FOSTER MD Unavailable Unavailable SEMEL, Darrion FOSTER MD Unavailable Unavailable SEMEL, Darrion FOSTER MD Unavailable Unavailable SEMEL, Darrion FOSTER MD Unavailable Unavailable SEMEL, Darrion FOSTER MD Unavailable Unavailable SEMEL, Darrion FOSTER MD Unavailable Unavailable SEMEL, Darrion FOSTER MD Unavailable Unavailable SEMEL, Darrion FOSTER MD Unavailable Unavailable SEMEL, Darrion FOSTER MD Unavailable Unavailable SEMEL, Darrion FOSTER MD Unavailable Unavailable SEMEL, Darrion FOSTER MD Unavailable Unavailable SEMEL, Darrion FOSTER MD Unavailable Unavailable SEMEL, Darrion FOSTER MD Unavailable Unavailable SEMEL, Darrion FOSTER MD Unavailable Unavailable SEMEL, Darrion FOSTER MD Unavailable Unavailable SEMEL, Darrion FOSTER MD Unavailable Unavailable SEMEL, Darrion FOSTER MD Unavailable Unavailable SEMEL, Darrion FOSTER MD Unavailable Unavailable SEMEL, Darrion FOSTER MD Unavailable Unavailable SEMEL, Darrion FOSTER MD Unavailable Unavailable SEMEL, Darrion FOSTER MD Unavailable Unavailable SEMEL, Darrion FOSTER MD Unavailable Unavailable SEMEL, Darrion FOSTER MD Unavailable Unavailable SEMEL, Darrion FOSTER MD Unavailable Unavailable SEMEL, Darrion FOSTER MD Unavailable Unavailable SEMEL, Darrion FOSTER MD Unavailable Unavailable SEMEL, Darrion FOSTER MD Unavailable Unavailable SEMEL, Darrion FOSTER MD Unavailable Unavailable SEMEL, Darrion FOSTER MD Unavailable Unavailable SEMEL, Darrion FOSTER MD Unavailable Unavailable SEMEL, Darrion FOSTER MD Unavailable Unavailable SEMEL, Darrion FOSTER MD Unavailable Unavailable SEMEL, Darrion FOSTER MD Unavailable Unavailable SEMEL, Darrion FOSTER MD Unavailable Unavailable SEMEL, Darrion FOSTER MD Unavailable Unavailable SEMEL, Darrion FOSTER MD Unavailable Unavailable SEMEL, Darrion FOSTER MD Unavailable Unavailable SEMEL, Darrion FOSTER MD Unavailable Unavailable SEMEL, Darrion FOSTER MD Unavailable Unavailable SEMEL, Darrion FOSTER MD Unavailable Unavailable SEMEL, Darrion FOSTER MD Unavailable Unavailable SEMEL, Darrion FOSTER MD Unavailable Unavailable SEMEL, Darrion FOSTER MD Unavailable Unavailable SEMEL, Darrion FOSTER MD Unavailable Unavailable SEMEL, Darrion FOSTER MD Unavailable Unavailable SEMEL, Darrion FOSTER MD Unavailable Unavailable SEMEL, Darrion FOSTER MD Unavailable Unavailable SEMEL, Darrion FOSTER MD Unavailable Unavailable SEMEL, Darrion FOSTER MD Unavailable Unavailable SEMEL, Darrion FOSTER MD Unavailable Unavailable SEMEL, Darrion FOSTER MD Unavailable Unavailable SEMEL, Darrion FOSTER MD Unavailable Unavailable SEMEL, Darrion FOSTER MD Unavailable Unavailable SEMEL, Darrion FSOTER MD Unavailable Unavailable SEMEL, Darrion FOSTER MD Unavailable Unavailable SEMEL, Darrion FOSTER MD Unavailable Unavailable SEMEL, Darrion FOSTER MD Unavailable Unavailable SEMEL, Darrion FOSTER MD Unavailable Unavailable SEMEL, Darrion FOSTER MD Unavailable Unavailable SEMEL, Darrion FOTSER MD Unavailable Unavailable SEMEL, Darrion FOSTER MD Unavailable Unavailable SEMEL, Darrion FOSTER MD Unavailable Unavailable SEMEL, Darrion FOSTER MD Unavailable Unavailable SEMEL, Darrion FOSTER MD Unavailable Unavailable SEMEL, Darrion FOSTER MD Unavailable Unavailable SEMEL, Darrion FOSTER MD Unavailable Unavailable SEMEL, Darrion FOSTER MD Unavailable Unavailable SEMEL, Darrion FOSTER MD Unavailable Unavailable SEMEL, Darrion FOSTER MD Unavailable Unavailable SEMEL, Darrion FOSTER MD Unavailable Unavailable SEMEL, Darrion FOSTER MD Unavailable Unavailable SEMEL, Darrion FOSTER MD Unavailable Unavailable SEMEL, Darrion FOSTER MD Unavailable Unavailable SEMEL, Darrion FOSTER MD Unavailable Unavailable SEMEL, Darrion FOSTER MD Unavailable Unavailable SEMEL, Darrion FOSTER MD Unavailable Unavailable SEMEL, Darrion FOSTER MD Unavailable Unavailable SEMEL, Darrion FOSTER MD Unavailable Unavailable SEMEL, Darrion FOSTER MD Unavailable Unavailable SEMEL, Darrion FOSTER MD Unavailable Unavailable SEMEL, Darrion FOSTER MD Unavailable Unavailable SEMEL, Darrion FOSTER MD Unavailable Unavailable SEMEL, Darrion FOSTER MD Unavailable Unavailable SEMEL, Darrion FOSTER MD Unavailable Unavailable SEMEL, Darrion FOSTER MD Unavailable Unavailable SEMEL, Darrion FOSTER MD Unavailable Unavailable SEMEL, Darrion FOSTER MD Unavailable Unavailable SEMEL, Darrion FOSTER MD Unavailable Unavailable SEMEL, Darrion FOSTER MD Unavailable Unavailable SEMEL, Darrion FOSTER MD Unavailable Unavailable SEMEL, Darrion FOSTER MD Unavailable Unavailable SEMEL, Darrion FOSTER MD Unavailable Unavailable SEMEL, Darrion FOSTER MD Unavailable Unavailable SEMEL, Darrion FOSTER MD Unavailable Unavailable SEMEL, Darrion FOSTER MD Unavailable Unavailable SEMEL, Darrion FOSTER MD Unavailable Unavailable SEMEL, Darrion FOSTER MD Unavailable Unavailable SEMEL, Darrion FOSTER MD Unavailable Unavailable SEMEL, Darrion FOSTER MD Unavailable Unavailable SEMEL, Darrion FOSTER MD Unavailable Unavailable SEMEL, Darrion FOSTER MD Unavailable Unavailable SEMEL, Darrion FOSTER MD Unavailable Unavailable SEMEL, Darrion FOSTER MD Unavailable Unavailable SEMEL, Darrion FOSTER MD Unavailable Unavailable SEMEL, Darrion FOSTER MD Unavailable Unavailable SEMEL, Darrion FOSTER MD Unavailable Unavailable SEMEL, Darrion FOSTER MD Unavailable Unavailable SEMEL, Darrion FOSTER MD Unavailable Unavailable SEMEL, Darrion FOSTER MD Unavailable Unavailable SEMEL, Darrion FOSTER MD Unavailable Unavailable SEMEL, Darrion FOSTER MD Unavailable Unavailable SEMEL, Darrion FOSTER MD Unavailable Unavailable SEMEL, Darrion FOSTER MD Unavailable Unavailable SEMEL, Darrion FOSTER MD Unavailable Unavailable SEMEL, Darrion FOSTER MD Unavailable Unavailable SEMEL, Darrion FOSTER MD Unavailable Unavailable SEMEL, Darrion FOSTER MD Unavailable Unavailable SEMEL, Darrion FOSTER MD Unavailable Unavailable SEMEL, Darrion FOSTER MD Unavailable Unavailable SEMEL, Darrion FOSTER MD Unavailable Unavailable SEMEL, Darrion FOSTER MD Unavailable Unavailable SEMEL, Darrion FOSTER MD Unavailable Unavailable SEMEL, Darrion FOSTER MD Unavailable Unavailable SEMEL, Darrion FOSTER MD Unavailable Unavailable SEMEL, Darrion FOSTER MD Unavailable Unavailable SEMEL, Darrion FOSTER MD Unavailable Unavailable SEMEL, Darrion FOSTER MD Unavailable Unavailable SEMEL, Darrion FOSTER MD Unavailable Unavailable SEMEL, Darrion FOSTER MD Unavailable Unavailable SEMEL, Darrion FOSTER MD Unavailable Unavailable SEMEL, Darrion FOSTER MD Unavailable Unavailable SEMEL, Darrion FOSTER MD Unavailable Unavailable SEMEL, Darrion FOSTER MD Unavailable Unavailable SEMEL, Darrion FOSTER MD Unavailable Unavailable SEMEL, Darrion FOSTER MD Unavailable Unavailable SEMEL, Darrion FOSTER MD Unavailable Unavailable SEMEL, Darrion FOSTER MD Unavailable Unavailable SEMEL, Darrion FOSTER MD Unavailable Unavailable SEMEL, Darrion FOSTER MD Unavailable Unavailable SEMEL, Darrion FOSTER MD Unavailable Unavailable SEMEL, Darrion FOSTER MD Unavailable Unavailable SEMEL, Darrion FOSTER MD Unavailable Unavailable SEMEL, Darrion FOSTER MD Unavailable Unavailable SEMEL, Darrion FOSTER MD Unavailable Unavailable SEMEL, Darrion FOSETR MD Unavailable Unavailable SEMEL, Darrion FOSTER MD Unavailable Unavailable SEMEL, Darrion FOSTER MD Unavailable Unavailable SEMEL, Darroin FOSTER MD Unavailable Unavailable SEMEL, Darrion FOSTER MD Unavailable Unavailable SEMEL, Darrion FOSTER MD Unavailable Unavailable SEMEL, Darrion FOSTER MD Unavailable Unavailable SEMEL, Darrion FOSTER MD Unavailable Unavailable SEMEL, Darrion FOSTER MD Unavailable Unavailable SEMEL, Darrion FOSTER MD Unavailable Unavailable SEMEL, Darrion FOSTER MD Unavailable Unavailable SEMEL, Darrion FOSTER MD Unavailable Unavailable SEMEL, Darrion FOSTER MD Unavailable Unavailable SEMEL, Darrion FOSTER MD Unavailable Unavailable SEMEL, Darrion FOSTER MD Unavailable Unavailable SEMEL, Darrion FOSTER MD Unavailable Unavailable SEMEL, Darrion FOSTER MD Unavailable Unavailable SEMEL, Darrion FOSTER MD Unavailable Unavailable SEMEL, Darrion FOSTER MD Unavailable Unavailable SEMEL, Darrion FOSTER MD Unavailable Unavailable SEMEL, aDrrion FOSTER MD Unavailable Unavailable SEMEL, Darrion FOSTER MD Unavailable Unavailable SEMEL, Darrion FOSTER MD Unavailable Unavailable SEMEL, Darrion FOSTER MD Unavailable Unavailable SEMEL, Darrion FOSTER MD Unavailable Unavailable SEMEL, Darrion FOSTER MD Unavailable Unavailable SEMEL, Darrion FOSTER MD Unavailable Unavailable SEMEL, Darrion FOSTER MD Unavailable Unavailable SEMEL, Darrion FOSTER MD Unavailable Unavailable SEMEL, Darrion FOSTER MD Unavailable Unavailable SEMEL, Darrion FOSTER MD Unavailable Unavailable SEMEL, Darrion FOSTER MD Unavailable Unavailable SEMEL, Darrion FOSTER MD Unavailable Unavailable SEMEL, Darrion FOSTER MD Unavailable Unavailable SEMEL, Darrion FOSTER MD Unavailable Unavailable SEMEL, Darrion FOSTER MD Unavailable Unavailable SEMEL, Darrion FOSTER MD Unavailable Unavailable SEMEL, Darrion FOSTER MD Unavailable Unavailable SEMEL, Darrion FOSTER MD Unavailable Unavailable SEMEL, Darrion FOSTER MD Unavailable Unavailable SEMEL, Darrion FOSTER MD Unavailable Unavailable SEMEL, Darrion FOSTER MD Unavailable Unavailable SEMEL, Darrion FOSTER MD Unavailable Unavailable SEMEL, Darrion FOSTER MD Unavailable Unavailable SEMEL, Darrion FOSTER MD Unavailable Unavailable SEMEL, Darrion FOSTER MD Unavailable Unavailable SEMEL, Darrion FOSTER MD Unavailable Unavailable SEMEL, Darrion FOSTER MD Unavailable Unavailable SEMEL, Darrion FOSTER MD Unavailable Unavailable SEMEL, Darrion FOSTER MD Unavailable Unavailable SEMEL, Darrion FOSTER MD Unavailable Unavailable SEMEL, Darrion FOSTER MD Unavailable Unavailable SEMEL, Darrion FOSTER MD Unavailable Unavailable SEMEL, Darrion FOSTER MD Unavailable Unavailable SEMEL, Darrion FOSTER MD Unavailable Unavailable SEMEL, Darrion FOSTER MD Unavailable Unavailable SEMEL, Darrion FOSTER MD Unavailable Unavailable SEMEL, Darrion FOSTER MD Unavailable Unavailable SEMEL, Darrion FOSTER MD Unavailable Unavailable SEMEL, Darrion FOSTER MD Unavailable Unavailable SEMEL, Darrion FOSTER MD Unavailable Unavailable SEMEL, Darrion FOSTER MD Unavailable Unavailable SEMEL, Darrion FOSTER MD Unavailable Unavailable SEMEL, Darrion FOSTER MD Unavailable Unavailable SEMEL, Darrion FOSTER MD Unavailable Unavailable SEMEL, Darrion FOSTER MD Unavailable Unavailable SEMEL, Darrion FOSTER MD Unavailable Unavailable SEMEL, Darrion FOSTER MD Unavailable Unavailable SEMEL, Darrion FOSTER MD Unavailable Unavailable SEMEL, Darrion FOSTER MD Unavailable Unavailable SEMEL, Darrion FOSTER MD Unavailable Unavailable SEMEL, A KRISTIN STEELE Unavailable Unavailable SEMEL, A KRISTIN STEELE Unavailable Unavailable SEMEL, A KRISTIN STEELE Unavailable Unavailable SEMEL, Darrion FOSTER MD Unavailable Unavailable SEMEL, Darrion FOSTER MD Unavailable Unavailable SEMEL, Darrion FOSTER MD Unavailable Unavailable SEMEL, A KRISTIN STEELE Unavailable Unavailable SEMEL, A KRISTIN STEELE Unavailable Unavailable SEMEL, A KRISTIN STEELE Unavailable Unavailable SEMEL, A KRISTIN STEELE Unavailable Unavailable SEMEL, A KRISTIN STEELE Unavailable Unavailable SEMEL, A KRISTIN STEELE Unavailable Unavailable SEMEL, A KRISTIN STEELE Unavailable Unavailable SEMEL, A KRISTIN STEELE Unavailable Unavailable SEMEL, A KRISTIN STEELE Unavailable Unavailable SEMEL, A KRISTIN STEELE Unavailable Unavailable SEMEL, A KRISTIN STEELE Unavailable Unavailable SEMEL, A KRISTIN STEELE Unavailable Unavailable Ivon PADILLA MD Unavailable Unavailable VALERIEIvon SWAIN MD Unavailable Unavailable VALERIEIvon SWAIN MD Unavailable Unavailable VALERIEIvon SWAIN MD Unavailable Unavailable VALERIEIvon SWAIN MD Unavailable Unavailable VALERIEIvon SWAIN MD Unavailable Unavailable VALERIEIvon SWAIN MD Unavailable Unavailable Ivon PADILLA MD Unavailable Unavailable Ivon PADILLA MD Unavailable Unavailable VALERIEIvon SWAIN MD Unavailable Unavailable VALERIEIvon SWAIN MD Unavailable Unavailable VALERIEIvon SWAIN MD Unavailable Unavailable Ivon PADILLA MD Unavailable Unavailable Ivon PADILLA MD Unavailable Unavailable Ivon PADILLA MD Unavailable Unavailable Ivon PADILLA MD Unavailable Unavailable Ivon PADILLA MD Unavailable Unavailable Ivon PADILLA MD Unavailable Unavailable Ivon PADILLA MD Unavailable Unavailable Ivon PADILLA MD Unavailable Unavailable Ivon PADILLA MD Unavailable Unavailable Ivon PADILLA MD Unavailable Unavailable Ivon PADILLA MD Unavailable Unavailable Ivon PADILLA MD Unavailable Unavailable Ivon PADILLA MD Unavailable Unavailable Ivon PADILLA MD Unavailable Unavailable Ivon PADILLA MD Unavailable Unavailable Ivon PADILLA MD Unavailable Unavailable Ivon PADILLA MD Unavailable Unavailable Ivon PADILLA MD Unavailable Unavailable Ivon PADILLA MD Unavailable Unavailable Ivon PADILLA MD Unavailable Unavailable Ivon PADILLA MD Unavailable Unavailable Ivon PADILLA MD Unavailable Unavailable Ivon PADILLA MD Unavailable Unavailable Ivon PADILLA MD Unavailable Unavailable Ivon PADILLA MD Unavailable Unavailable Ivon PADILLA MD Unavailable Unavailable VALERIEIvon SWAIN MD Unavailable Unavailable VALERIEIvon SWAIN MD Unavailable Unavailable Ivon PADILLA MD Unavailable Unavailable Ivon PADILLA MD Unavailable Unavailable Ivon PADILLA MD Unavailable Unavailable Ivon PADILLA MD Unavailable Unavailable Ivon PADILLA MD Unavailable Unavailable Ivon PADILLA MD Unavailable Unavailable Ivon PADILLA MD Unavailable Unavailable Ivon PADILLA MD Unavailable Unavailable Ivon PADILLA MD Unavailable Unavailable Ivon PADILLA MD Unavailable Unavailable Ivon PADILLA MD Unavailable Unavailable Ivon PADILLA MD Unavailable Unavailable Ivon PADILLA MD Unavailable Unavailable Ivon PADILLA MD Unavailable Unavailable Ivon PADILLA MD Unavailable Unavailable Ivon PADILLA MD Unavailable Unavailable Ivon PADILLA MD Unavailable Unavailable Ivon PADILLA MD Unavailable Unavailable Ivon PADILLA MD Unavailable Unavailable Ivon PADILLA MD Unavailable Unavailable Ivon PADILLA MD Unavailable Unavailable Ivon PADILLA MD Unavailable Unavailable Ivon PADILLA MD Unavailable Unavailable Ivon PADILLA MD Unavailable Unavailable Ivon PADILLA MD Unavailable Unavailable Ivon PADILLA MD Unavailable Unavailable Ivon PADILLA MD Unavailable Unavailable Ivon PADILLA MD Unavailable Unavailable Ivon PADILLA MD Unavailable Unavailable Ivon PADILLA MD Unavailable Unavailable Ivno PADILLA MD Unavailable Unavailable Ivon PADILLA MD Unavailable Unavailable Ivon PADILLA MD Unavailable Unavailable Ivon PADILLA MD Unavailable Unavailable Jack Hong MD Unavailable Unavailable Jack Hong MD Unavailable Unavailable Jack Hong MD Unavailable Unavailable Jack Hong MD Unavailable Unavailable Jack Hong MD Unavailable Unavailable Jack Hong MD Unavailable Unavailable Jack Hong MD Unavailable Unavailable Jack Hong MD Unavailable Unavailable Jack Hong MD Unavailable Unavailable Jack Hong MD Unavailable Unavailable Jack Hnog MD Unavailable Unavailable Jack Hong MD Unavailable Unavailable Jack Hong MD Unavailable Unavailable Jack Hong MD Unavailable Unavailable Jack Hong MD Unavailable Unavailable Jack Hong MD Unavailable Unavailable Jack Hong MD Unavailable Unavailable Jack Hong MD Unavailable Unavailable Jack Hong MD Unavailable Unavailable Jack Hong MD Unavailable Unavailable Jack Hong MD Unavailable Unavailable Jack Hong MD Unavailable Unavailable Jack Hong MD Unavailable Unavailable Jack Hong MD Unavailable Unavailable Jack Hong MD Unavailable Unavailable Jack Hong MD Unavailable Unavailable Jack Hong MD Unavailable Unavailable Holtman, M Magy PHYSICIAN'S AIDE Unavailable Unavailable Holtman, M Magy PHYSICIAN'S AIDE Unavailable Unavailable Holtman, M Magy PHYSICIAN'S AIDE Unavailable Unavailable Holtman, M Magy PHYSICIAN'S AIDE Unavailable Unavailable Holtman, M Magy PHYSICIAN'S AIDE Unavailable Unavailable Holtman, M Magy PHYSICIAN'S AIDE Unavailable Unavailable Holtman, M Magy PHYSICIAN'S AIDE Unavailable Unavailable Holtman, M Magy PHYSICIAN'S AIDE Unavailable Unavailable Holtman, M Magy PHYSICIAN'S AIDE Unavailable Unavailable Holtman, M Magy PHYSICIAN'S AIDE Unavailable Unavailable Holtman, M Magy PHYSICIAN'S AIDE Unavailable Unavailable Holtman, M Magy PHYSICIAN'S AIDE Unavailable Unavailable Holtman, M Magy PHYSICIAN'S AIDE Unavailable Unavailable Holtman, M Magy PHYSICIAN'S AIDE Unavailable Unavailable Holtman, M Magy PHYSICIAN'S AIDE Unavailable Unavailable Ivon PADILLA MD Unavailable Unavailable Ivon PADILLA MD Unavailable Unavailable Ivon PADILLA MD Unavailable Unavailable Ivon PADILLA MD Unavailable Unavailable Ivon PADILLA MD Unavailable Unavailable Ivon PADILLA MD Unavailable Unavailable Ivon PADILLA MD Unavailable Unavailable Ivon PADILLA MD Unavailable Unavailable Ivon PADILLA MD Unavailable Unavailable Ivon PADILLA MD Unavailable Unavailable Ivon PADILLA MD Unavailable Unavailable Ivon PADILLA MD Unavailable Unavailable Ivon PADILLA MD Unavailable Unavailable Ivon PADILLA MD Unavailable Unavailable Ivon PADILLA MD Unavailable Unavailable Ivon PADILLA MD Unavailable Unavailable Ivon PADILLA MD Unavailable Unavailable Ivon PADILLA MD Unavailable Unavailable Ivon PADILLA MD Unavailable Unavailable Ivon PADILLA MD Unavailable Unavailable Ivon PADILLA MD Unavailable Unavailable Ivon PADILLA MD Unavailable Unavailable Ivon PADILLA MD Unavailable Unavailable Ivon PADILLA MD Unavailable Unavailable Ivon PADILLA MD Unavailable Unavailable Ivon PADILLA MD Unavailable Unavailable Ivon PADILLA MD Unavailable Unavailable Ivon PADILLA MD Unavailable Unavailable Ivon PADILLA MD Unavailable Unavailable Ivon PADILLA MD Unavailable Unavailable Ivon PADILLA MD Unavailable Unavailable Ivon PADILLA MD Unavailable Unavailable Ivon PADILLA MD Unavailable Unavailable Ivon PADILLA MD Unavailable Unavailable Ivon PADILLA MD Unavailable Unavailable Ivon PADILLA MD Unavailable Unavailable Ivon PADILLA MD Unavailable Unavailable Ivon PADILLA MD Unavailable Unavailable Ivon PADILLA MD Unavailable Unavailable Ivon PADILLA MD Unavailable Unavailable Ivon PADILLA MD Unavailable Unavailable Ivon PADILLA MD Unavailable Unavailable Ivon PADILLA MD Unavailable Unavailable Ivon PADILLA MD Unavailable Unavailable Ivon PADILLA MD Unavailable Unavailable Ivon PADILLA MD Unavailable Unavailable Ivon PADILLA MD Unavailable Unavailable Ivon PADILLA MD Unavailable Unavailable Ivon PADILLA MD Unavailable Unavailable Ivon PADILLA MD Unavailable Unavailable Ivon PADILLA MD Unavailable Unavailable Ivon PADILLA MD Unavailable Unavailable Ivon PADILLA MD Unavailable Unavailable Ivon PADILLA MD Unavailable Unavailable Ivon PADILLA MD Unavailable Unavailable Ivon PADILLA MD Unavailable Unavailable Ivon PADILLA MD Unavailable Unavailable Ivon PADILLA MD Unavailable Unavailable Ivon PADILLA MD Unavailable Unavailable Ivon PADILLA MD Unavailable Unavailable Ivon PADILLA MD Unavailable Unavailable Ivon PADILLA MD Unavailable Unavailable Ivon PADILLA MD Unavailable Unavailable Ivon PADILLA MD Unavailable Unavailable Ivon PADILLA MD Unavailable Unavailable Ivon PADILLA MD Unavailable Unavailable Ivon PADILLA MD Unavailable Unavailable Ivon PADILLA MD Unavailable Unavailable Ivon PADILLA MD Unavailable Unavailable Ivon PADILLA MD Unavailable Unavailable Ivon PADILLA MD Unavailable Unavailable Ivon PADILLA MD Unavailable Unavailable Ivon PADILLA MD Unavailable Unavailable Ivon PADILLA MD Unavailable Unavailable Shahla ABDUL MD Unavailable Unavailable Shahla ABDUL MD Unavailable Unavailable Shahla ABDUL MD Unavailable Unavailable Shahla ABDUL MD Unavailable Unavailable Shahla ABDUL MD Unavailable Unavailable Shahla ABDUL MD Unavailable Unavailable Shahla ABDUL MD Unavailable Unavailable Shahla ABDUL MD Unavailable Unavailable Shahla ABDUL MD Unavailable Unavailable Shahla ABDUL MD Unavailable Unavailable BERKERShahla Umana MD Unavailable Unavailable BERKERYShahla MD Unavailable Unavailable BERKERYShahla MD Unavailable Unavailable BERKERYShahla MD Unavailable Unavailable BERKERYShahla MD Unavailable Unavailable BERKERYShahla MD Unavailable Unavailable BERKERYShahla MD Unavailable Unavailable BERKERYShahla MD Unavailable Unavailable BERKERYShahla MD Unavailable Unavailable BERKERYShahla MD Unavailable Unavailable BERKERYShahla MD Unavailable Unavailable BERKERYShahla MD Unavailable Unavailable BERKERYShahla MD Unavailable Unavailable BERKERYShahla MD Unavailable Unavailable BERKERYShahla MD Unavailable Unavailable BERKERYShahla MD Unavailable Unavailable BERKERYShahla MD Unavailable Unavailable BERKERYShahla MD Unavailable Unavailable BERKERYSahhla MD Unavailable Unavailable BERKERYShahla MD Unavailable Unavailable BERKERYShahla MD Unavailable Unavailable BERKERShahla Umana MD Unavailable Unavailable BERKERYShahla MD Unavailable Unavailable BERKERYShahla MD Unavailable Unavailable BERKERYShahla MD Unavailable Unavailable BERKERYShahla MD Unavailable Unavailable BERKERYShahla MD Unavailable Unavailable BERKERYShahla MD Unavailable Unavailable BERKERShahla Umana MD Unavailable Unavailable BERKERShahla Umana MD Unavailable Unavailable BERKERShahla Umana MD Unavailable Unavailable BERKERYShahla MD Unavailable Unavailable BERKERYShahla MD Unavailable Unavailable BERKERYShahla MD Unavailable Unavailable BERKERYShahla MD Unavailable Unavailable BERKERShahla Umana MD Unavailable Unavailable BERKERYShahla MD Unavailable Unavailable BERKERShahla Umana MD Unavailable Unavailable BERKERYShahla MD Unavailable Unavailable BERKERYShahla MD Unavailable Unavailable BERKERYShahla MD Unavailable Unavailable BERKERYShahla MD Unavailable Unavailable BERKERShahla Umana MD Unavailable Unavailable BERKERShahla Umana MD Unavailable Unavailable BERKERYShahla MD Unavailable Unavailable BERKERYShahla MD Unavailable Unavailable BERKERYShahla MD Unavailable Unavailable BERKERYShahla MD Unavailable Unavailable BERKERYShahla MD Unavailable Unavailable BERKERYShahla MD Unavailable Unavailable BERKERShahla Umana MD Unavailable Unavailable BERKERYShahla MD Unavailable Unavailable BERKERYShahla MD Unavailable Unavailable BERKERYShahla MD Unavailable Unavailable BERKERYShahla MD Unavailable Unavailable BERKERYShahla MD Unavailable Unavailable Shahla ABDUL MD Unavailable Unavailable Shahla ABDUL MD Unavailable Unavailable Shahla ABDUL MD Unavailable Unavailable Shahla ABDUL MD Unavailable Unavailable Shahla ABDUL MD Unavailable Unavailable Shahla ABDUL MD Unavailable Unavailable Shahla ABDUL MD Unavailable Unavailable Shahla ABDUL MD Unavailable Unavailable Shahla ABDUL MD Unavailable Unavailable Shahla ABDUL MD Unavailable Unavailable Shahla ABDUL MD Unavailable Unavailable Shahla ABDUL MD Unavailable Unavailable Shahla ABDUL MD Unavailable Unavailable Shahla ABDUL MD Unavailable Unavailable Shahla ABDUL MD Unavailable Unavailable Shahla ABDUL MD Unavailable Unavailable Shahla ABDUL MD Unavailable Unavailable Shahla ABDUL MD Unavailable Unavailable Shahla ABDUL MD Unavailable Unavailable Shahla ABDUL MD Unavailable Unavailable Shahla ABDUL MD Unavailable Unavailable Shahla ABDUL MD Unavailable Unavailable Shahla ABDUL MD Unavailable Unavailable Shahla ABDUL MD Unavailable Unavailable Shahla ABDUL MD Unavailable Unavailable Shahla ABDUL MD Unavailable Unavailable Shahla ABDUL MD Unavailable Unavailable Shahla ABDUL MD Unavailable Unavailable Shahla ABDUL MD Unavailable Unavailable Shahla ABDUL MD Unavailable Unavailable Shahla ABDUL MD Unavailable Unavailable Shahla ABDUL MD Unavailable Unavailable DR [facility] Unavailable Unavailable ARIS, 0000{ Unavailable Unavailable 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, 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 Unavailable Unavailabl e Yudelka Coon MD Unavailable Unavailable Yudelka Coon MD Unavailable Unavailable Yudelka Coon MD Unavailable Unavailable Yudelka Coon MD Unavailable Unavailable Yudelka Coon MD Unavailable Unavailable Yudelka Coon MD Unavailable Unavailable Yudelka Coon MD Unavailable Unavailable Yudelka Coon MD Unavailable Unavailable Yudelka Coon MD Unavailable Unavailable Yudelka Coon MD Unavailable Unavailable Yudelka Coon MD Unavailable Unavailable Yudelka Coon MD Unavailable Unavailable Yudelka Coon MD Unavailable Unavailable Yudelka Coon MD Unavailable Unavailable Yudelka Coon MD Unavailable Unavailable Yudelka Coon MD Unavailable Unavailable Yudelka Coon MD Unavailable Unavailable Yudelka Coon MD Unavailable Unavailable ConYudelka mccauley MD Unavailable Unavailable ConYudelka mccauley MD Unavailable Unavailable CongelYudelka herrera MD Unavailable Unavailable CongelYudelka herrera MD Unavailable Unavailable CongelYudelka herrera MD Unavailable Unavailable CongelYudelka herrera MD Unavailable Unavailable CongelYudelka herrera MD Unavailable Unavailable CongelYudelka herrera MD Unavailable Unavailable CongelYudelka herrera MD Unavailable Unavailable CongelYudelka herrera MD Unavailable Unavailable CongelYudelka herrera MD Unavailable Unavailable CongelYudelka herrera MD Unavailable Unavailable CongelYudelka herrera MD Unavailable Unavailable CongelYudelka herrera MD Unavailable Unavailable CongelYudelka herrera MD Unavailable Unavailable CongelYudelka herrera MD Unavailable Unavailable CongelYudelka herrera MD Unavailable Unavailable ConYudelka mccauley MD Unavailable Unavailable CongelYudelka herrera MD Unavailable Unavailable ConYudelka mccauley MD Unavailable Unavailable CongelYudelka herrera MD Unavailable Unavailable ConYudelka mccauley MD Unavailable Unavailable CongelYudelka herrera MD Unavailable Unavailable ConYudelka mccauley MD Unavailable Unavailable ConYudelka mccauley MD Unavailable Unavailable ConYudelka mccauley MD Unavailable Unavailable ConYudelka mccauley MD Unavailable Unavailable ConYudelka mccauley MD Unavailable Unavailable ConYudelka mccauley MD Unavailable Unavailable ConYudelka mccauley MD Unavailable Unavailable ConYudelka mccauley MD Unavailable Unavailable ConYudelka mccauley MD Unavailable Unavailable ConYudelka mccauley MD Unavailable Unavailable ConYudelka mccauley MD Unavailable Unavailable ConYudelka mccauley MD Unavailable Unavailable ConYudelka mccauley MD Unavailable Unavailable Yudelka Coon MD Unavailable Unavailable ConYudelka mccauley MD Unavailable Unavailable Yudelka Coon MD Unavailable Unavailable ConYudelka mccauley MD Unavailable Unavailable ConYudelka mccauley MD Unavailable Unavailable ConYudelka mccauley MD Unavailable Unavailable Yudelka Coon MD Unavailable Unavailable ConYudelka mccauley MD Unavailable Unavailable ConYudelka mccauley MD Unavailable Unavailable ConYudelka mccauley MD Unavailable Unavailable ConYudelka mccauley MD Unavailable Unavailable ConYudelka mccauley MD Unavailable Unavailable ConYudelka mccauley MD Unavailable Unavailable ConYudelka mccauley MD Unavailable Unavailable Yudelka Coon MD Unavailable Unavailable Yudelka Coon MD Unavailable Unavailable Yudelka Coon MD Unavailable Unavailable Yudelka Coon MD Unavailable Unavailable Yudelka Coon MD Unavailable Unavailable Yudelka Coon MD Unavailable Unavailable Yudelka Coon MD Unavailable Unavailable Huey Ambrose MD Unavailable Unavailable Huey Ambrose MD Unavailable Unavailable Huey Ambrose MD Unavailable Unavailable Huey Ambrose MD Unavailable Unavailable Huey Ambrose MD Unavailable Unavailable Huey Ambrose MD Unavailable Unavailable Huey Ambrose MD Unavailable Unavailable Huey Ambrose MD Unavailable Unavailable Huey Ambrose MD Unavailable Unavailable Huey Ambrose MD Unavailable Unavailable Huey Ambrose MD Unavailable Unavailable Huey Ambrose MD Unavailable Unavailable Huey Ambrose MD Unavailable Unavailable Huey Ambrose MD Unavailable Unavailable Huey Ambrose MD Unavailable Unavailable Huey Ambrose MD Unavailable Unavailable Huey Ambrose MD Unavailable Unavailable Huey Ambrose MD Unavailable Unavailable Huey Ambrose MD Unavailable Unavailable Huey Ambrose MD Unavailable Unavailable Huey Ambrose MD Unavailable Unavailable Huey Ambrose MD Unavailable Unavailable Huey Ambrose MD Unavailable Unavailable Huey Ambrose MD Unavailable Unavailable Huey Ambrose MD Unavailable Unavailable Huey Ambrose MD Unavailable Unavailable Huey Ambrose MD Unavailable Unavailable Huey Ambrose MD Unavailable Unavailable Huey Ambrose MD Unavailable Unavailable Huey Ambrose MD Unavailable Unavailable Huey Ambrose MD Unavailable Unavailable Huey Ambrose MD Unavailable Unavailable Huey Ambrose MD Unavailable Unavailable Huey Ambrose MD Unavailable Unavailable Huey Ambrose MD Unavailable Unavailable Huey Ambrose MD Unavailable Unavailable Huey Ambrose MD Unavailable Unavailable Huey Ambrose MD Unavailable Unavailable Huey Ambrose MD Unavailable Unavailable Huey Ambrose MD Unavailable Unavailable Huey Ambrose MD Unavailable Unavailable Huey Ambrose MD Unavailable Unavailable Huey Ambrose MD Unavailable Unavailable Huey Ambrose MD Unavailable Unavailable Huey Ambrose MD Unavailable Unavailable Arnol, Huey Perla MD Unavailable Unavailable Arnol, Huey Perla MD Unavailable Unavailable Arnol, Huey Perla MD Unavailable Unavailable Arnol, Huey Perla MD Unavailable Unavailable Arnol, Huey Perla MD Unavailable Unavailable Arnol, Huey Perla MD Unavailable Unavailable Arnol, Huey Perla MD Unavailable Unavailable Arnol, Huey Perla MD Unavailable Unavailable Arnol, Huey Perla MD Unavailable Unavailable Arnol, Huey Perla MD Unavailable Unavailable Jaci Edouard DO Unavailable Unavailable Jaci Edouard DO Unavailable Unavailable MD KRISTIN MONTANA Unavailable Unavailable TERESA PACHECO MD Unavailable Unavailable TERESA PACHECO MD Unavailable Unavailable TERESA PACHECO MD Unavailable Unavailable TERESA PACHECO MD Unavailable Unavailable TERESA PACHECO MD Unavailable Unavailable TERESA PACHECO MD Unavailable Unavailable TERESA PACHECO MD Unavailable Unavailable TERESA PACHECO MD Unavailable Unavailable TERESA PACHECO MD Unavailable Unavailable TERESA PACHECO MD Unavailable Unavailable TERESA PACHECO MD Unavailable Unavailable TERESA PACHECO MD Unavailable Unavailable TERESA PACHECO MD Unavailable Unavailable TERESA PACHECO MD Unavailable Unavailable TERESA PACHECO MD Unavailable Unavailable TERESA PACHECO MD Unavailable Unavailable TERESA PACHECO MD Unavailable Unavailable TERESA PACHECO MD Unavailable Unavailable TERESA PACHECO MD Unavailable Unavailable TERESA PACHECO MD Unavailable Unavailable TERESA PACHECO MD Unavailable Unavailable TERESA PACHECO MD Unavailable Unavailable TERESA PACHECO MD Unavailable Unavailable TERESA PACHECO MD Unavailable Unavailable TERESA PACHECO MD Unavailable Unavailable TERESA PACHECO MD Unavailable Unavailable TERESA PACHECO MD Unavailable Unavailable TERESA PACHECO MD Unavailable Unavailable TERESA PACHECO MD Unavailable Unavailable TERESA PACHECO MD Unavailable Unavailable TERESA PACHECO MD Unavailable Unavailable TERESA PACHECO MD Unavailable Unavailable TERESA PACHECO MD Unavailable Unavailable TERESA PACHECO MD Unavailable Unavailable TERESA PACHECO MD Unavailable Unavailable TERESA PACHECO MD Unavailable Unavailable TERESA PACHECO MD Unavailable Unavailable TERESA PACHECO MD Unavailable Unavailable TERESA PACHECO MD Unavailable Unavailable TERESA PACHECO MD Unavailable Unavailable TERESA PACHECO MD Unavailable Unavailable TERESA PACHECO MD Unavailable Unavailable TERESA PACHECO MD Unavailable Unavailable TERESA PACHECO MD Unavailable Unavailable TERESA PACHECO MD Unavailable Unavailable TERESA PACHECO MD Unavailable Unavailable MACK, K CARMELINA PA Unavailable Unavailable MACK, K CARMELINA PA Unavailable Unavailable MACK, K CARMELINA PA Unavailable Unavailable MACK, K CARMELINA PA Unavailable Unavailable MACK, K CARMELINA PA Unavailable Unavailable MACK, K CARMELINA PA Unavailable Unavailable MACK, K CARMELINA PA Unavailable Unavailable MACK, K CARMELINA PA Unavailable Unavailable MACK, K CARMELINA PA Unavailable Unavailable MACK, K CARMELINA PA Unavailable Unavailable MACK, K CARMELINA PA Unavailable Unavailable MACK, K CARMELINA PA Unavailable Unavailable MACK, K CARMELINA PA Unavailable Unavailable MACK, K CARMELINA PA Unavailable Unavailable MACK, K CARMELINA PA Unavailable Unavailable MACK, K CARMELINA PA Unavailable Unavailable MACK, K CARMELINA PA Unavailable Unavailable MACK, K CARMELINA PA Unavailable Unavailable MACK, K CARMELINA PA Unavailable Unavailable MACK, K CARMELINA PA Unavailable Unavailable MACK, K CARMELINA PA Unavailable Unavailable MACK, K CARMELINA PA Unavailable Unavailable MACK, K CARMELINA PA Unavailable Unavailable MACK, K CARMELINA PA Unavailable Unavailable MACK, K CARMELINA PA Unavailable Unavailable MACK, K CARMELINA PA Unavailable Unavailable MACK, K CARMELINA PA Unavailable Unavailable MACK, K CARMELINA PA Unavailable Unavailable MACK, K CARMELINA PA Unavailable Unavailable MACK, K CARMELINA PA Unavailable Unavailable MACK, K CARMELINA PA Unavailable Unavailable MACK, K CARMELINA PA Unavailable Unavailable MACK, K CARMELINA PA Unavailable Unavailable MACK, K CARMELINA PA Unavailable Unavailable MACK, K ACRMELINA PA Unavailable Unavailable MACK, K CARMELINA PA Unavailable Unavailable MACK, K CARMELINA PA Unavailable Unavailable MACK, K CARMELINA PA Unavailable Unavailable MACK, K CARMELINA PA Unavailable Unavailable MACK, K CARMELINA PA Unavailable Unavailable MACK, K CARMELINA PA Unavailable Unavailable MACK, K CARMELINA PA Unavailable Unavailable MACK, K CARMELINA PA Unavailable Unavailable MACK, K CARMELINA PA Unavailable Unavailable MACK, K CARMELINA PA Unavailable Unavailable MACK, K CARMELINA PA Unavailable Unavailable MACK, K CARMELINA PA Unavailable Unavailable MACK, K CARMELINA PA Unavailable Unavailable MACK, K CARMELINA PA Unavailable Unavailable MACK, K CARMELINA PA Unavailable Unavailable MACK, K CARMELINA PA Unavailable Unavailable MACK, K CARMELINA PA Unavailable Unavailable MACK, K CARMELINA PA Unavailable Unavailable MACK, K CARMELINA PA Unavailable Unavailable MACK, K CARMELINA PA Unavailable Unavailable Jayne CROSS MD Unavailable Unavailable Jayne CROSS MD Unavailable Unavailable Jayne CROSS MD Unavailable Unavailable Jayne CROSS MD Unavailable Unavailable Jayne CROSS MD Unavailable Unavailable Jayne CROSS MD Unavailable Unavailable Jayne CROSS MD Unavailable Unavailable Jayne CROSS MD Unavailable Unavailable Jayne CROSS MD Unavailable Unavailable Jayne CROSS MD Unavailable Unavailable Jayne CROSS MD Unavailable Unavailable Jayne CROSS MD Unavailable Unavailable Jayne CROSS MD Unavailable Unavailable Jayne CROSS MD Unavailable Unavailable Jayne CROSS MD Unavailable Unavailable Jayne CROSS MD Unavailable Unavailable Jayne CROSS MD Unavailable Unavailable Jayne CROSS MD Unavailable Unavailable Jayne CROSS MD Unavailable Unavailable Jayne CROSS MD Unavailable Unavailable Jayne CROSS MD Unavailable Unavailable Jayne CROSS MD Unavailable Unavailable Jayne CROSS MD Unavailable Unavailable Jayne CROSS MD Unavailable Unavailable Jayne CROSS MD Unavailable Unavailable Jayne CROSS MD Unavailable Unavailable Jayne CROSS MD Unavailable Unavailable Jayne CROSS MD Unavailable Unavailable Jayne CROSS MD Unavailable Unavailable Jayne CROSS MD Unavailable Unavailable Jayne CROSS MD Unavailable Unavailable Jayne CROSS MD Unavailable Unavailable Jayne CROSS MD Unavailable Unavailable HARTZHEIM, Jayne MACEDO MD Unavailable Unavailable HARTZHEIM, Jayne MACEDO MD Unavailable Unavailable HARTZHEIM, Jayne MACEDO MD Unavailable Unavailable HARTZHEIM, Jayne MACEDO MD Unavailable Unavailable HARTZHEIM, Jayne MACEDO MD Unavailable Unavailable HARTZHEIM, Jayne MACEDO MD Unavailable Unavailable HARTZHEIM, Jayne MACEDO MD Unavailable Unavailable HARTZHEIM, Jayne MACEDO MD Unavailable Unavailable HARTZHEIM, Jayne MACEDO MD Unavailable Unavailable HARTZHEIM, Jayne MACEDO MD Unavailable Unavailable HARTZHEIM, Jayne MACEDO MD Unavailable Unavailable HARTZHEIM, Jayne MACEDO MD Unavailable Unavailable HARTZHEIM, Jayne MACEDO MD Unavailable Unavailable HARTZHEIM, Jayne MACEDO MD Unavailable Unavailable HARTZHEIM, Jayne MACEDO MD Unavailable Unavailable HARTZHEIM, Jayne MACEDO MD Unavailable Unavailable HARTZHEIM, Jayne MACEDO MD Unavailable Unavailable HARTZHEIM, Jayne MACEDO MD Unavailable Unavailable HARTZHEIM, Jayne MACEDO MD Unavailable Unavailable HARTZHEIM, Jayne MACEDO MD Unavailable Unavailable HARTZHEIM, Jayne MACEDO MD Unavailable Unavailable HARTZHEIM, Jayne MACEDO MD Unavailable Unavailable HARTZHEIM, Jayne MACEDO MD Unavailable Unavailable HARTZHEIM, Jayne MACEDO MD Unavailable Unavailable HARTZHEIM, Jayne MACEDO MD Unavailable Unavailable HARTZHEIM, Jayne MACEDO MD Unavailable Unavailable HARTZHEIM, Jayne MACEDO MD Unavailable Unavailable HARTZHEIM, Jayne MACEDO MD Unavailable Unavailable HARTZHEIM, Jayne MACEDO MD Unavailable Unavailable HARTZHEIM, Jayne MACEDO MD Unavailable Unavailable HARTZHEIM, Jayne MACEDO MD Unavailable Unavailable HARTZHEIM, Jayne MACEDO MD Unavailable Unavailable HARTZHEIM, Jayne MACEDO MD Unavailable Unavailable SEMEL, Darrion FOSTER MD Unavailable Unavailable SEMEL, Darrion FOSTER MD Unavailable Unavailable SEMEL, Darrion FOSTER MD Unavailable Unavailable SEMEL, Darrion FOSTER MD Unavailable Unavailable SEMEL, Darrion FOSTER MD Unavailable Unavailable SEMEL, Darrion FOSTER MD Unavailable Unavailable SEMEL, Darrion FOSTER MD Unavailable Unavailable SEMEL, Darrion FOSTER MD Unavailable Unavailable SEMEL, Darrion FOSTER MD Unavailable Unavailable SEMEL, Darrion FOSTER MD Unavailable Unavailable SEMEL, Darrion FOSTER MD Unavailable Unavailable SEMEL, Darrion FOSTER MD Unavailable Unavailable SEMEL, Darrion FOSTER MD Unavailable Unavailable SEMEL, Darrion FOSTER MD Unavailable Unavailable SEMEL, Darrion FOSTER MD Unavailable Unavailable SEMEL, Darrion FOSTER MD Unavailable Unavailable SEMEL, Darrion FOSTER MD Unavailable Unavailable SEMEL, Darrion FOSTER MD Unavailable Unavailable SEMEL, Darrion FOSTER MD Unavailable Unavailable SEMEL, Darrion FOSTER MD Unavailable Unavailable SEMEL, Darrion FOSTER MD Unavailable Unavailable SEMEL, Darrion FOSTER MD Unavailable Unavailable SEMEL, Darrion FOSTER MD Unavailable Unavailable SEMEL, Darrion FOSTER MD Unavailable Unavailable SEMEL, Darrion FOSTER MD Unavailable Unavailable SEMEL, Darrion FOSTER MD Unavailable Unavailable SEMEL, Darrion FOSTER MD Unavailable Unavailable SEMEL, Darrion FOSTER MD Unavailable Unavailable SEMEL, Darrion FOSTER MD Unavailable Unavailable SEMEL, Darrion FOSTER MD Unavailable Unavailable SEMEL, Darrion FOSTER MD Unavailable Unavailable SEMEL, Darrion FOSTER MD Unavailable Unavailable SEMEL, Darrion FOSTER MD Unavailable Unavailable SEMEL, Darrion FOSTER MD Unavailable Unavailable SEMEL, Darrion FOSTER MD Unavailable Unavailable SEMEL, Darrion FOSTER MD Unavailable Unavailable SEMEL, Darrion FOSTER MD Unavailable Unavailable SEMEL, Darrion FOSTER MD Unavailable Unavailable SEMEL, Darrion FOSTER MD Unavailable Unavailable SEMEL, Darrion FOSTER MD Unavailable Unavailable SEMEL, Darrion FOSTER MD Unavailable Unavailable SEMEL, Darrion FOSTER MD Unavailable Unavailable SEMEL, Darrion FOSTER MD Unavailable Unavailable SEMEL, Darrion FOSTER MD Unavailable Unavailable SEMEL, Darrion FOSTER MD Unavailable Unavailable SEMEL, Darrion FOSTER MD Unavailable Unavailable SEMEL, Darrion FOSTER MD Unavailable Unavailable SEMEL, Darrion FOSTER MD Unavailable Unavailable SEMEL, Darrion FOSTER MD Unavailable Unavailable SEMEL, Darrion FOSTER MD Unavailable Unavailable SEMEL, Darrion FOSTER MD Unavailable Unavailable SEMEL, Darrion FOSTER MD Unavailable Unavailable SEMEL, Darrion FOSTER MD Unavailable Unavailable SEMEL, Darrion FOSTER MD Unavailable Unavailable SEMEL, Darrion FOSTER MD Unavailable Unavailable SEMEL, Darrion FOSTER MD Unavailable Unavailable SEMEL, Darrion FOSTER MD Unavailable Unavailable SEMEL, Darrion FOSTER MD Unavailable Unavailable SEMEL, Darrion FOSTER MD Unavailable Unavailable SEMEL, Darrion FOSTER MD Unavailable Unavailable SEMEL, Darrion FOSTER MD Unavailable Unavailable SEMEL, Darrion FOSTER MD Unavailable Unavailable SEMEL, Darrion FOSTER MD Unavailable Unavailable SEMEL, Darrion FOSTER MD Unavailable Unavailable SEMEL, Darrion FOSTER MD Unavailable Unavailable SEMEL, Darrion FOSTER MD Unavailable Unavailable SEMEL, Darrion FOSTER MD Unavailable Unavailable SEMEL, Darrion FOSTER MD Unavailable Unavailable SEMEL, Darrion FOSTER MD Unavailable Unavailable SEMEL, Darrion FOSTER MD Unavailable Unavailable SEMEL, Darrion FOSTER MD Unavailable Unavailable SEMEL, Darrion FOSTER MD Unavailable Unavailable SEMEL, Darrion FOSTER MD Unavailable Unavailable SEMEL, Darrion FOSTER MD Unavailable Unavailable SEMEL, Darrion FOSTER MD Unavailable Unavailable SEMEL, Darrion FOSTER MD Unavailable Unavailable SEMEL, Darrion FOSTER MD Unavailable Unavailable SEMEL, Darrion FOSTER MD Unavailable Unavailable SEMEL, Darrion FOSTER MD Unavailable Unavailable SEMEL, Darrion FOSTER MD Unavailable Unavailable SEMEL, Darrion FOSTER MD Unavailable Unavailable SEMEL, Darrion FOSTER MD Unavailable Unavailable SEMEL, Darrion FOSTER MD Unavailable Unavailable SEMEL, Darrion FOSTER MD Unavailable Unavailable SEMEL, Darrion FOSTER MD Unavailable Unavailable SEMEL, Darrion FOSTER MD Unavailable Unavailable SEMEL, Darrion FOSTER MD Unavailable Unavailable SEMEL, Darrion FOSTER MD Unavailable Unavailable SEMEL, Darrion FOSTER MD Unavailable Unavailable SEMEL, Darrion FOSTER MD Unavailable Unavailable SEMEL, Darrion FOSTER MD Unavailable Unavailable SEMEL, Darrion FOSTER MD Unavailable Unavailable SEMEL, Darrion FOSTER MD Unavailable Unavailable SEMEL, Darrion FOSTER MD Unavailable Unavailable SEMEL, Darrion FOSTER MD Unavailable Unavailable SEMEL, Darrion FOSTER MD Unavailable Unavailable SEMEL, Darrion FOSTER MD Unavailable Unavailable SEMEL, Darrion FOSTER MD Unavailable Unavailable SEMEL, Darrion FOSTER MD Unavailable Unavailable SEMEL, Darrion FOSTER MD Unavailable Unavailable SEMEL, Darrion FOSTER MD Unavailable Unavailable SEMEL, Darrion FOSTER MD Unavailable Unavailable SEMEL, Darrion FOSTER MD Unavailable Unavailable SEMEL, Darrion FOSTER MD Unavailable Unavailable SEMEL, Darrion FOSTER MD Unavailable Unavailable SEMEL, Darrion FOSTER MD Unavailable Unavailable SEMEL, Darrion FOSTER MD Unavailable Unavailable SEMEL, Darrion FOSTER MD Unavailable Unavailable SEMEL, Darrion FOSTER MD Unavailable Unavailable SEMEL, Darrion FOSTER MD Unavailable Unavailable SEMEL, Darrion FOSTER MD Unavailable Unavailable SEMEL, Darrion FOSTER MD Unavailable Unavailable SEMEL, Darrion FOSTER MD Unavailable Unavailable SEMEL, Darrion FOSTER MD Unavailable Unavailable SEMEL, Darrion FOSTER MD Unavailable Unavailable SEMEL, Darrion FOSTER MD Unavailable Unavailable SEMEL, Darrion FOSTER MD Unavailable Unavailable SEMEL, Darrion FOSTER MD Unavailable Unavailable SEMEL, Darrion FOSTER MD Unavailable Unavailable SEMEL, Darrion FOSTER MD Unavailable Unavailable SEMEL, Darrion FOSTER MD Unavailable Unavailable SEMEL, Darrion FOSTER MD Unavailable Unavailable SADOWITZ, ZULEYKA LING MD Unavailable Unavailable SADOWITZ, ZULEYKA LING MD Unavailable Unavailable SADOWITZ, ZULEYKA LING MD Unavailable Unavailable SADOWITZ, ZULEYKA LING MD Unavailable Unavailable SADOWITZ, ZULEYKA LING MD Unavailable Unavailable SADOWITZ, ZULEYKA LING MD Unavailable Unavailable SADOWITZ, ZULEYKA LING MD Unavailable Unavailable SADOWITZ, ZULEYKA LING MD Unavailable Unavailable SADOWITZ, ZULEYKA LING MD Unavailable Unavailable SADOWITZ, ZULEYKA LING MD Unavailable Unavailable SADOWITZ, ZULEYKA LING MD Unavailable Unavailable SADOWITZ, ZULEYKA LING MD Unavailable Unavailable SADOWITZ, ZULEYKA LING MD Unavailable Unavailable SADOWITZ, ZULEYKA LING MD Unavailable Unavailable SADOWITZ, ZULEYKA LING MD Unavailable Unavailable SADOWITZ, UZLEYKA LING MD Unavailable Unavailable SADOWITZ, ZULEYKA LING MD Unavailable Unavailable SADOWITZ, ZULEYKA LING MD Unavailable Unavailable SADOWITZ, ZULEYKA LING MD Unavailable Unavailable SADOWITZ, ZULEYKA LING MD Unavailable Unavailable SADOWITZ, ZULEYKA LING MD Unavailable Unavailable SADOWITZ, ZULEYKA LING MD Unavailable Unavailable SADOWITZ, ZULEYKA LING MD Unavailable Unavailable SADOWITZ, ZULEYKA LING MD Unavailable Unavailable SADOWITZ, ZULEYKA LING MD Unavailable Unavailable SADOWITZ, ZULEYKA LING MD Unavailable Unavailable SADOWITZ, ZULEYKA LING MD Unavailable Unavailable SADOWITZ, ZULEYKA LING MD Unavailable Unavailable SADOWITZ, ZULEYKA LING MD Unavailable Unavailable SADOWITZ, ZULEYKA LING MD Unavailable Unavailable SADOWITZ, ZULEYKA LING MD Unavailable Unavailable SADOWITZ, ZULEYKA LING MD Unavailable Unavailable SADOWITZ, ZULEYKA LING MD Unavailable Unavailable SADOWITZ, ZULEYKA LING MD Unavailable Unavailable SADOWITZ, ZULEYKA LING MD Unavailable Unavailable SADOWITZ, ZULEYKA LING MD Unavailable Unavailable SADOWITZ, ZULEYKA LING MD Unavailable Unavailable SADOWITZ, ZULEYKA LING MD Unavailable Unavailable SADOWITZ, ZULEYKA LING MD Unavailable Unavailable SADOWITZ, ZULEYKA LING MD Unavailable Unavailable SADOWITZ, ZULEYKA LING MD Unavailable Unavailable SADOWITZ, ZULEYKA LING MD Unavailable Unavailable SADOWITZ, ZULEYKA LING MD Unavailable Unavailable SADOWITZ, ZULEYKA LING MD Unavailable Unavailable SADOWITZ, ZULEYKA LING MD Unavailable Unavailable SADOWITZ, ZULEYKA LING MD Unavailable Unavailable SADOWITZ, ZULEYKA LING MD Unavailable Unavailable SADOWITZ, ZULEYKA LING MD Unavailable Unavailable SADOWITZ, ZULEYKA LING MD Unavailable Unavailable SADOWITZ, ZULEYKA LING MD Unavailable Unavailable SADOWITZ, ZULEYKA LING MD Unavailable Unavailable SADOWITZ, ZULEYKA LING MD Unavailable Unavailable SADOWITZ, ZULEYKA LING MD Unavailable Unavailable SADOWITZ, ZULEYKA LING MD Unavailable Unavailable SADOWITZ, ZULEYKA LING MD Unavailable Unavailable SADOWITZ, ZULEYKA LING MD Unavailable Unavailable SADOWITZ, ZULEYKA LING MD Unavailable Unavailable SADOWITZ, ZULEYKA LING MD Unavailable Unavailable JAGANATHAN, P MARELY MD Unavailable Unavailable JAGANATHAN, P MARELY MD Unavailable Unavailable JAGANATHAN, P MARELY MD Unavailable Unavailable JAGANATHAN, P MARELY MD Unavailable Unavailable JAGANATHAN, P MARELY MD Unavailable Unavailable JAGANATHAN, P MARELY MD Unavailable Unavailable JAGANATHAN, P MARELY MD Unavailable Unavailable JAGANATHAN, P MARELY MD Unavailable Unavailable JAGANATHAN, P MARELY MD Unavailable Unavailable JAGANATHAN, P MARELY MD Unavailable Unavailable JAGANATHAN, P MARELY MD Unavailable Unavailable JAGANATHAN, P MARELY MD Unavailable Unavailable JAGANATHAN, P MARELY MD Unavailable Unavailable JAGANATHAN, P MARELY MD Unavailable Unavailable JAGANATHAN, P MARELY MD Unavailable Unavailable JAGANATHAN, P MARELY MD Unavailable Unavailable TERESA PACHECO MD Unavailable Unavailable TERESA PACHECO MD Unavailable Unavailable TERESA PACHECO MD Unavailable Unavailable TERESA PACHECO MD Unavailable Unavailable TERESA PACHECO MD Unavailable Unavailable TERESA PACHECO MD Unavailable Unavailable TERESA PACHECO MD Unavailable Unavailable TERESA PACHECO MD Unavailable Unavailable TERESA PACHECO MD Unavailable Unavailable TERESA PACHECO MD Unavailable Unavailable TERESA PACHECO MD Unavailable Unavailable TERESA PACHECO MD Unavailable Unavailable TERESA PACHECO MD Unavailable Unavailable TERESA PACHECO MD Unavailable Unavailable TERESA PACHECO MD Unavailable Unavailable TERESA PACHECO MD Unavailable Unavailable TERESA PACHECO MD Unavailable Unavailable TERESA PACHECO MD Unavailable Unavailable TERESA PACHECO MD Unavailable Unavailable TERESA PACHECO MD Unavailable Unavailable TERESA PACHECO MD Unavailable Unavailable TERESA PACHECO MD Unavailable Unavailable TERESA PACHECO MD Unavailable Unavailable TERESA PACHECO MD Unavailable Unavailable TERESA PACHECO MD Unavailable Unavailable TERESA PACHECO MD Unavailable Unavailable TERESA PACHECO MD Unavailable Unavailable TERESA PACHECO MD Unavailable Unavailable TERESA PACHECO MD Unavailable Unavailable TERESA PACHECO MD Unavailable Unavailable TERESA PACHECO MD Unavailable Unavailable TERESA PACHECO MD Unavailable Unavailable TERESA PACHECO MD Unavailable Unavailable TERESA PACHECO MD Unavailable Unavailable TERESA PACHECO MD Unavailable Unavailable TERESA PACHECO MD Unavailable Unavailable TERESA PACHECO MD Unavailable Unavailable TERESA PACHECO MD Unavailable Unavailable TERESA PACHECO MD Unavailable Unavailable TERESA PACHECO MD Unavailable Unavailable TERESA PACHECO MD Unavailable Unavailable TERESA PACHECO MD Unavailable Unavailable TERESA PACHECO MD Unavailable Unavailable TERESA PACHECO MD Unavailable Unavailable TERESA PACHECO MD Unavailable Unavailable TERESA PACHECO MD Unavailable Unavailable Mila, M Katelin PHYSICIAN'S AIDE Unavailable Unavailable Mila, M Katelin PHYSICIAN'S AIDE Unavailable Unavailable [place], M Katelin PHYSICIAN'S AIDE Unavailable Unavailable [place], M Katelin PHYSICIAN'S AIDE Unavailable Unavailable Mila, M Katelin PHYSICIAN'S AIDE Unavailable Unavailable Mila, M Katelin PHYSICIAN'S AIDE Unavailable Unavailable Mila, M Katelin PHYSICIAN'S AIDE Unavailable Unavailable Mila, M Katelin PHYSICIAN'S AIDE Unavailable Unavailable Mila, M Katelin PHYSICIAN'S AIDE Unavailable Unavailable [place], M Katelin PHYSICIAN'S AIDE Unavailable Unavailable Mila, M Katelin PHYSICIAN'S AIDE Unavailable Unavailable Mila, M Katelin PHYSICIAN'S AIDE Unavailable Unavailable [place], M Katelin PHYSICIAN'S AIDE Unavailable Unavailable Mila, M Katelin PHYSICIAN'S AIDE Unavailable Unavailable [place], M Katelin PHYSICIAN'S AIDE Unavailable Unavailable Mila, M Katelin PHYSICIAN'S AIDE Unavailable Unavailable Mila, M Katelin PHYSICIAN'S AIDE Unavailable Unavailable [place], M Katelin PHYSICIAN'S AIDE Unavailable Unavailable [place], M Katelin PHYSICIAN'S AIDE Unavailable Unavailable [place], M Katelin PHYSICIAN'S AIDE Unavailable Unavailable [place], M Katelin PHYSICIAN'S AIDE Unavailable Unavailable Mila, M Katelin PHYSICIAN'S AIDE Unavailable Unavailable Mila, M Katelin PHYSICIAN'S AIDE Unavailable Unavailable Mila, M Katelin PHYSICIAN'S AIDE Unavailable Unavailable Mila, M Katelin PHYSICIAN'S AIDE Unavailable Unavailable [place], M Katelin PHYSICIAN'S AIDE Unavailable Unavailable Mila, M Katelin PHYSICIAN'S AIDE Unavailable Unavailable [place], M Katelin PHYSICIAN'S AIDE Unavailable Unavailable [place], M Katelin PHYSICIAN'S AIDE Unavailable Unavailable [place], M Katelin PHYSICIAN'S AIDE Unavailable Unavailable [place], M Katelin PHYSICIAN'S AIDE Unavailable Unavailable [place], M Katelin PHYSICIAN'S AIDE Unavailable Unavailable [place], M Katelin PHYSICIAN'S AIDE Unavailable Unavailable Mila, M Katelin PHYSICIAN'S AIDE Unavailable Unavailable [place], M Katelin PHYSICIAN'S AIDE Unavailable Unavailable Mila, M Katelin PHYSICIAN'S AIDE Unavailable Unavailable [place], M Katelin PHYSICIAN'S AIDE Unavailable Unavailable MD ABRAHAM PADILLA Unavailable Unavailable [place], E Renée PHYSICIAN'S AIDE Unavailable Unavailable [place], E Renée PHYSICIAN'S AIDE Unavailable Unavailable [place], E Rneée PHYSICIAN'S AIDE Unavailable Unavailable [place], E Renée PHYSICIAN'S AIDE Unavailable Unavailable [place], E Renée PHYSICIAN'S AIDE Unavailable Unavailable [place], E Renée PHYSICIAN'S AIDE Unavailable Unavailable [place], E Renée PHYSICIAN'S AIDE Unavailable Unavailable [place], E Renée PHYSICIAN'S AIDE Unavailable Unavailable [place], E Renée PHYSICIAN'S AIDE Unavailable Unavailable [place], E Renée PHYSICIAN'S AIDE Unavailable Unavailable [place], E Renée PHYSICIAN'S AIDE Unavailable Unavailable [place], E Renée PHYSICIAN'S AIDE Unavailable Unavailable [place], E Renée PHYSICIAN'S AIDE Unavailable Unavailable [place], E Renée PHYSICIAN'S AIDE Unavailable Unavailable [place], E Renée PHYSICIAN'S AIDE Unavailable Unavailable [place], E Renée PHYSICIAN'S AIDE Unavailable Unavailable [place], E Renée PHYSICIAN'S AIDE Unavailable Unavailable [place], E Renée PHYSICIAN'S AIDE Unavailable Unavailable [place], E Renée PHYSICIAN'S AIDE Unavailable Unavailable [place], E Renée PHYSICIAN'S AIDE Unavailable Unavailable [place], E Renée PHYSICIAN'S AIDE Unavailable Unavailable [place], E Renée PHYSICIAN'S AIDE Unavailable Unavailable [place], E Renée PHYSICIAN'S AIDE Unavailable Unavailable [place], E Renée PHYSICIAN'S AIDE Unavailable Unavailable BERKERShahla Umana MD Unavailable Unavailable BERKERShahla Umana MD Unavailable Unavailable BERKERShahla Umana MD Unavailable Unavailable BERKERShahla Umana MD Unavailable Unavailable BERKERShahla Umana MD Unavailable Unavailable BERKERYShahla MD Unavailable Unavailable BERKERYShahla MD Unavailable Unavailable BERKERYShahla MD Unavailable Unavailable BERKERYShahla MD Unavailable Unavailable BERKERYShahla MD Unavailable Unavailable BERKERShahla Umana MD Unavailable Unavailable BERKERShahla Umana MD Unavailable Unavailable BERKERShahla Umana MD Unavailable Unavailable BERKERShahla Umana MD Unavailable Unavailable BERKERShahla Umana MD Unavailable Unavailable BERKERShahla Umana MD Unavailable Unavailable LOUISKERShahla Umana MD Unavailable Unavailable Shahla ABDUL MD Unavailable Unavailable Shahla ABDUL MD Unavailable Unavailable LOUISKERShahla Umana MD Unavailable Unavailable LOUISKERShahla Umana MD Unavailable Unavailable Shahla ABDUL MD Unavailable Unavailable Shahla ABDUL MD Unavailable Unavailable Shahla ABDUL MD Unavailable Unavailable Shahla ABDUL MD Unavailable Unavailable Shahla ABDUL MD Unavailable Unavailable Shahla ABDUL MD Unavailable Unavailable Shahla ABDUL MD Unavailable Unavailable Shahla ABDUL MD Unavailable Unavailable Shahla ABDUL MD Unavailable Unavailable Shahla ABDUL MD Unavailable Unavailable Shahla ABDUL MD Unavailable Unavailable Shahla ABDUL MD Unavailable Unavailable Shahla ABDUL MD Unavailable Unavailable Shahla ABDUL MD Unavailable Unavailable Shahla ABDUL MD Unavailable Unavailable Shahla ABDUL MD Unavailable Unavailable Shahla ABDUL MD Unavailable Unavailable Shahla ABDUL MD Unavailable Unavailable BERShahla KRISHNAN MD Unavailable Unavailable Shahla ABDUL MD Unavailable Unavailable BERShahla KRISHNAN MD Unavailable Unavailable BERKERShahla Umana MD Unavailable Unavailable BERKERShahla Umana MD Unavailable Unavailable LOUISKERShahla Umana MD Unavailable Unavailable Shahla ABDUL MD Unavailable Unavailable Shahla ABDUL MD Unavailable Unavailable BERKERShahla Umana MD Unavailable Unavailable BERShahla KRISHNAN MD Unavailable Unavailable BERKERShahla Umana MD Unavailable Unavailable BERShahla KRISHNAN MD Unavailable Unavailable BERKERShahla Umana MD Unavailable Unavailable BERKERYShahla MD Unavailable Unavailable BERKERYShahla MD Unavailable Unavailable BERKERYShahla MD Unavailable Unavailable BERKERYShahla MD Unavailable Unavailable BERKERYShahla MD Unavailable Unavailable BERKERYShahla MD Unavailable Unavailable BERKERYShahla MD Unavailable Unavailable BERKERYShahla MD Unavailable Unavailable BERKERYShahla MD Unavailable Unavailable BERKERYShahla MD Unavailable Unavailable BERKERYShahla MD Unavailable Unavailable BERKERYShahla MD Unavailable Unavailable BERKERYShahla MD Unavailable Unavailable BERKERYShahla MD Unavailable Unavailable BERKERYShahla MD Unavailable Unavailable BERKERYShahla MD Unavailable Unavailable BERKERYShahla MD Unavailable Unavailable BERKERYShahla MD Unavailable Unavailable BERKERYShahla MD Unavailable Unavailable BERKERYShahla MD Unavailable Unavailable BERKERShahla Umana MD Unavailable Unavailable BERKERShahla Umana MD Unavailable Unavailable BERKERShahla Umana MD Unavailable Unavailable BERKERShahla Umana MD Unavailable Unavailable BERKERShahla Umana MD Unavailable Unavailable BERKERShahla Umana MD Unavailable Unavailable BERKERShahla Umana MD Unavailable Unavailable Shahla ABDUL MD Unavailable Unavailable BERShahla KRISHNAN MD Unavailable Unavailable BERShahla KRISHNAN MD Unavailable Unavailable BERKERShahla Umana MD Unavailable Unavailable BERKERShahla Umana MD Unavailable Unavailable BERKERShahla Umana MD Unavailable Unavailable BERKERShahla Umana MD Unavailable Unavailable BERShahla KRISHNAN MD Unavailable Unavailable BERKERShahla Umana MD Unavailable Unavailable BERKERShahla Umana MD Unavailable Unavailable BERKERShahla Umana MD Unavailable Unavailable BERKERShahla Umana MD Unavailable Unavailable BERKERShahla Umana MD Unavailable Unavailable BERKERShahla Umana MD Unavailable Unavailable BERKERShahla Umana MD Unavailable Unavailable BERKERShahla Umana MD Unavailable Unavailable BERKERYShahla MD Unavailable Unavailable BERKERYShahla MD Unavailable Unavailable BERKERYShahla MD Unavailable Unavailable Kirstin Thomas MD Unavailable Unavailable Kirstin Thomas MD Unavailable Unavailable Kirstin Thomas MD Unavailable Unavailable Kirstin Thomas MD Unavailable Unavailable Kirstin Thomas MD Unavailable Unavailable Kirstin Thomas MD Unavailable Unavailable Kirstin Thomas MD Unavailable Unavailable Kirstin Thomas MD Unavailable Unavailable Kirstin Thomas MD Unavailable Unavailable Kirstin Thomas MD Unavailable Unavailable Kirstin Thomas MD Unavailable Unavailable Kirstin Thomas MD Unavailable Unavailable Kirstin Thomas MD Unavailable Unavailable Kirstin Thomas MD Unavailable Unavailable Kirstin Thomas MD Unavailable Unavailable Kirstin Thomas MD Unavailable Unavailable Kirstin Thomas MD Unavailable Unavailable Kirstin Thomas MD Unavailable Unavailable Kirstin Thomas MD Unavailable Unavailable Kirstin Thomas MD Unavailable Unavailable Kirstin Thomas MD Unavailable Unavailable Kirstin Thomas MD Unavailable Unavailable RAMESH, M CHRISTOPHER RESEARCH ASSOCIATE Unavailable Unavailable RAMESH, M CHRISTOPHER RESEARCH ASSOCIATE Unavailable Unavailable RAMESH, M CHRISTOPHER RESEARCH ASSOCIATE Unavailable Unavailable RAMESH, M CHRISTOPHER RESEARCH ASSOCIATE Unavailable Unavailable RAMESH, M CHRISTOPHER RESEARCH ASSOCIATE Unavailable Unavailable RAMESH, M CHRISTOPHER RESEARCH ASSOCIATE Unavailable Unavailable RAMESH, M CHRISTOPHER RESEARCH ASSOCIATE Unavailable Unavailable RAMESH, M CHRISTOPHER RESEARCH ASSOCIATE Unavailable Unavailable RAMESH, M CHRISTOPHER RESEARCH ASSOCIATE Unavailable Unavailable RAMESH, M CHRISTOPHER RESEARCH ASSOCIATE Unavailable Unavailable RAMESH, M CHRISTOPHER RESEARCH ASSOCIATE Unavailable Unavailable RAMESH, M CHRISTOPHER RESEARCH ASSOCIATE Unavailable Unavailable RAMESH, M CHRISTOPHER RESEARCH ASSOCIATE Unavailable Unavailable SorMonica manzo MD Unavailable Unavailable Sorge, Monica Lamb MD Unavailable Unavailable SorgeMnoica MD Unavailable Unavailable SorgeMonica MD Unavailable Unavailable SorMonica manzo MD Unavailable Unavailable SorMonica manzo MD Unavailable Unavailable SorMonica manzo MD Unavailable Unavailable SorgeMonica MD Unavailable Unavailable SorgeMonica MD Unavailable Unavailable SorMonica manzo MD Unavailable Unavailable Sorge, Monica Lamb MD Unavailable Unavailable SorMonica manzo MD Unavailable Unavailable SorMonica manzo MD Unavailable Unavailable SorMonica manzo MD Unavailable Unavailable SorMonica manzo MD Unavailable Unavailable SorMonica manzo MD Unavailable Unavailable SorMonica manzo MD Unavailable Unavailable SorMonica manzo MD Unavailable Unavailable SorMonica manzo MD Unavailable Unavailable SorMonica manzo MD Unavailable Unavailable SorMonica manzo MD Unavailable Unavailable SorMonica manzo MD Unavailable Unavailable SorMonica manzo MD Unavailable Unavailable SorMonica manzo MD Unavailable Unavailable SorMonica manzo MD Unavailable Unavailable SorMonica manzo MD Unavailable Unavailable Shahla ABDUL MD Unavailable Unavailable Shahla ABDUL MD Unavailable Unavailable Shahla ABDUL MD Unavailable Unavailable Shahla ABDUL MD Unavailable Unavailable Shahla ABDUL MD Unavailable Unavailable BERKERYShahla MD Unavailable Unavailable BERKERYShahla MD Unavailable Unavailable BERKERYShahla MD Unavailable Unavailable BERKERYShahla MD Unavailable Unavailable BERKERYShahla MD Unavailable Unavailable BERKERYShalha MD Unavailable Unavailable BERKERYShahla MD Unavailable Unavailable BERKERYShahla MD Unavailable Unavailable BERKERYShahla MD Unavailable Unavailable BERKERY, Shahla GOODWIN MD Unavailable Unavailable BERKERYShahla MD Unavailable Unavailable BERKERYShahla MD Unavailable Unavailable BERKERYShahla MD Unavailable Unavailable BERKERYShahla MD Unavailable Unavailable BERKERYShahla MD Unavailable Unavailable BERKERYShahla MD Unavailable Unavailable BERKERYShahla MD Unavailable Unavailable BERKERYShahla MD Unavailable Unavailable BERKERYShahla MD Unavailable Unavailable BERKERYShahla MD Unavailable Unavailable BERKERYShahla MD Unavailable Unavailable BERKERYShahla MD Unavailable Unavailable BERKERYShahla MD Unavailable Unavailable BERKERYShahla MD Unavailable Unavailable BERKERYShahla MD Unavailable Unavailable BERKERYShahla MD Unavailable Unavailable BERKERYShahla MD Unavailable Unavailable BERKERYShahla MD Unavailable Unavailable BERKERYShahla MD Unavailable Unavailable BERKERYShahla MD Unavailable Unavailable BERKERYShahla MD Unavailable Unavailable BERKERYShahla MD Unavailable Unavailable BERKERYShahla MD Unavailable Unavailable BERKERYShahla MD Unavailable Unavailable BERKERYShahla MD Unavailable Unavailable BERKERYShahla MD Unavailable Unavailable BERKERYShahla MD Unavailable Unavailable BERKERYShahla MD Unavailable Unavailable BERKERYShahla MD Unavailable Unavailable BERKERYShahla MD Unavailable Unavailable BERKERYShahla MD Unavailable Unavailable BERKERYShahla MD Unavailable Unavailable BERKERYShahla MD Unavailable Unavailable BERKERYShahla MD Unavailable Unavailable BERKERYShahla MD Unavailable Unavailable BERKERYShahla MD Unavailable Unavailable BERKERYShahla MD Unavailable Unavailable BERKERYShahla MD Unavailable Unavailable BERKERYShahla MD Unavailable Unavailable BERKERYShahla MD Unavailable Unavailable BERKERYShahla MD Unavailable Unavailable BERKERYShahla MD Unavailable Unavailable BERKERYShahla MD Unavailable Unavailable BERKERYShahla MD Unavailable Unavailable BERKERYShahla MD Unavailable Unavailable BERKERYShahla MD Unavailable Unavailable BERKERY, P JUAN MIGUEL MD Unavailable Unavailable BERKERShahla Umana MD Unavailable Unavailable BERKERShahla Umana MD Unavailable Unavailable BERKERShahla Umana MD Unavailable Unavailable BERKERShahla Umana MD Unavailable Unavailable BERKERShahla Umana MD Unavailable Unavailable BERKERShahla Umana MD Unavailable Unavailable BERKERShahla Umana MD Unavailable Unavailable BERKERShahla Umana MD Unavailable Unavailable BERKERYShahla MD Unavailable Unavailable BERKERShahla Umana MD Unavailable Unavailable BERKERYShahla MD Unavailable Unavailable BERKERShahla Umana MD Unavailable Unavailable BERKERYShahla MD Unavailable Unavailable BERKERShahla Umana MD Unavailable Unavailable BERKERShahla Umana MD Unavailable Unavailable BERKERShahla Umana MD Unavailable Unavailable BERKERShahla Umana MD Unavailable Unavailable BERKERShahla Umana MD Unavailable Unavailable BERKERShahla Umana MD Unavailable Unavailable BERKERShahla Umana MD Unavailable Unavailable Shahla ABDUL MD Unavailable Unavailable BERShahla KRISHNAN MD Unavailable Unavailable Shahla ABDUL MD Unavailable Unavailable BERShahla KRISHNAN MD Unavailable Unavailable BERShahla KRISHNAN MD Unavailable Unavailable BERShahla KRISHNAN MD Unavailable Unavailable BERShahla KRISHNAN MD Unavailable Unavailable Shahla ABDUL MD Unavailable Unavailable BERShahla KRISHNAN MD Unavailable Unavailable Shahla ABDUL MD Unavailable Unavailable BERShahla KRISHNAN MD Unavailable Unavailable BERShahla KRISHNAN MD Unavailable Unavailable BERShahla KRISHNAN MD Unavailable Unavailable BERShahla KRISHNAN MD Unavailable Unavailable BERShahla KRISHNAN MD Unavailable Unavailable BERShahla KRISHNAN MD Unavailable Unavailable LAUREL, RIAZ PA Unavailable Unavailable LAUREL, RIAZ PA Unavailable Unavailable LAUREL, RIAZ PA Unavailable Unavailable LAUREL, RIAZ PA Unavailable Unavailable LAUREL, RIAZ PA Unavailable Unavailable LAUREL, RIAZ PA Unavailable Unavailable LAUREL, RIAZ PA Unavailable Unavailable LAUREL, RIAZ PA Unavailable Unavailable LAUREL, RIAZ PA Unavailable Unavailable LAUREL, RIAZ PA Unavailable Unavailable LAUREL, RIAZ PA Unavailable Unavailable LAUREL, RIAZ PA Unavailable Unavailable LAUREL, RIAZ PA Unavailable Unavailable LAUREL, RIAZ PA Unavailable Unavailable Yudelka ACUÑA MD Unavailable Unavailable Yudelka ACUÑA MD Unavailable Unavailable Yudelka ACUÑA MD Unavailable Unavailable Yudelka ACUÑA MD Unavailable Unavailable ASHENBURG, J LAURA MD Unavailable Unavailable ASHENBUR[place], J LAURA MD Unavailable Unavailable ASHENBUR[place], J LAURA MD Unavailable Unavailable ASHENBUR[place], J LAURA MD Unavailable Unavailable ASHEN[place], J LAURA MD Unavailable Unavailable A[place]EN[place], J LAURA MD Unavailable Unavailable [place]EN[place], J LAURA MD Unavailable Unavailable A[place]EN[place], J LAURA MD Unavailable Unavailable A[place]EN[place], J LAURA MD Unavailable Unavailable ASHEN[place], J LAURA MD Unavailable Unavailable Javan, E Antwon DO Unavailable Unavailable Javan, E Antwon DO Unavailable Unavailable Javan, E Antwon DO Unavailable Unavailable Javan, E Antwon DO Unavailable Unavailable Javan, E Antwon DO Unavailable Unavailable Javan, E Antwon DO Unavailable Unavailable Javan, E Antwon DO Unavailable Unavailable Javan, E Antwon DO Unavailable Unavailable Javan, E Antwon DO Unavailable Unavailable Javan, E Antwon DO Unavailable Unavailable Javan, E Natwon DO Unavailable Unavailable Javan, E Antwon DO Unavailable Unavailable Javan, E Antwon DO Unavailable Unavailable Javan, E Antwon DO Unavailable Unavailable Javan, E Antwon DO Unavailable Unavailable Javan, E Antwon DO Unavailable Unavailable Javan, E Antwon DO Unavailable Unavailable Javan, E Antwon DO Unavailable Unavailable Javan, E Antwon DO Unavailable Unavailable Javan, E Antwon DO Unavailable Unavailable Javan, E Antwon DO Unavailable Unavailable Javan, E Antwon DO Unavailable Unavailable Javan, E Antwon DO Unavailable Unavailable Javan, E Antwon DO Unavailable Unavailable Javan, E Antwon DO Unavailable Unavailable Javan, E Antwon DO Unavailable Unavailable BROUGHAL, C RAQUEL PA Unavailable Unavailable BROUGHAL, C RAQUEL PA Unavailable Unavailable BROUGHAL, C RAQUEL PA Unavailable Unavailable BROUGHAL, C RAQUEL PA Unavailable Unavailable BROUGHAL, C RAQUEL PA Unavailable Unavailable BROUGHAL, C RAQUEL PA Unavailable Unavailable Jaci Edouard DO Unavailable Unavailable Ivon PADILLA MD Unavailable Unavailable Ivon PADILLA MD Unavailable Unavailable Ivon PADILLA MD Unavailable Unavailable Ivon PADILLA MD Unavailable Unavailable Ivon PADILLA MD Unavailable Unavailable Ivon PADILLA MD Unavailable Unavailable Ivon PADILLA MD Unavailable Unavailable Ivon PADILLA MD Unavailable Unavailable Ivon PADILLA MD Unavailable Unavailable Ivon PADILLA MD Unavailable Unavailable Ivon PADILLA MD Unavailable Unavailable Ivon PADILLA MD Unavailable Unavailable Ivon PADILLA MD Unavailable Unavailable Ivon PADILLA MD Unavailable Unavailable Ivon PADILLA MD Unavailable Unavailable Ivon PADILLA MD Unavailable Unavailable Ivon PADILLA MD Unavailable Unavailable VALERIEIvon Zamarripa MD Unavailable Unavailable Ivon PADILLA MD Unavailable Unavailable Ivon PADILLA MD Unavailable Unavailable Ivon PADILLA MD Unavailable Unavailable VALERIEIvon Zamarripa MD Unavailable Unavailable VALERIEIvon Zamarripa MD Unavailable Unavailable VALERIEIvon Zamarripa MD Unavailable Unavailable VALERIEIvon Zamarripa MD Unavailable Unavailable VALERIEIvon Zamarripa MD Unavailable Unavailable VALERIEIvon Zamarripa MD Unavailable Unavailable VALERIEIvon Zamarripa MD Unavailable Unavailable VALERIEIvon Zamarripa MD Unavailable Unavailable VALERIEIvon Zamarripa MD Unavailable Unavailable VALERIE, E ABRAHAM STEELE Unavailable Unavailable VALERIE, E ABRAHAM STEELE Unavailable Unavailable VALERIEIvon Zamarripa MD Unavailable Unavailable VALERIEIvon Zamarripa MD Unavailable Unavailable VALERIEIvon Zamarripa MD Unavailable Unavailable VALERIEIvon Zamarripa MD Unavailable Unavailable Ivon PADILLA MD Unavailable Unavailable VALERIEIvon Zamarripa MD Unavailable Unavailable VALERIEIvon Zamarripa MD Unavailable Unavailable VALERIEIvon Zamarripa MD Unavailable Unavailable VALERIEIvon Zamarripa MD Unavailable Unavailable VALERIEIvon Zamarripa MD Unavailable Unavailable VALERIEIvon Zamarripa MD Unavailable Unavailable Ivon PADILLA MD Unavailable Unavailable VALERIEIvon Zamarripa MD Unavailable Unavailable Ivon PADILLA MD Unavailable Unavailable Ivon PADILLA MD Unavailable Unavailable Ivon PADILLA MD Unavailable Unavailable Ivon PADILLA MD Unavailable Unavailable VALERIEIvon Zamarripa MD Unavailable Unavailable Ivon PADILLA MD Unavailable Unavailable Ivon PADILLA MD Unavailable Unavailable Ivon PADILLA MD Unavailable Unavailable Ivon PADILLA MD Unavailable Unavailable Ivon PADILLA MD Unavailable Unavailable Ivon PADILLA MD Unavailable Unavailable Ivon PADILLA MD Unavailable Unavailable Ivon PADILLA MD Unavailable Unavailable Ivon PADILLA MD Unavailable Unavailable Ivon PADILLA MD Unavailable Unavailable Ivon PADILLA MD Unavailable Unavailable Ivon PADILLA MD Unavailable Unavailable Ivon PADILLA MD Unavailable Unavailable Ivon PADILLA MD Unavailable Unavailable Ivon PADILLA MD Unavailable Unavailable Ivon PADILLA MD Unavailable Unavailable Ivon PADILLA MD Unavailable Unavailable Ivon PADILLA MD Unavailable Unavailable Ivon PADILLA MD Unavailable Unavailable Ivon PADILLA MD Unavailable Unavailable VALERIEIvon SWAIN MD Unavailable Unavailable Ivon PADILLA MD Unavailable Unavailable Ivon PADILLA MD Unavailable Unavailable Ivon PADILLA MD Unavailable Unavailable Re-disclosure Warning The records that you are about to access may contain information from federally-assisted alcohol or drug abuse programs. If such information is present, then the following federally mandated warning applies: This information has been disclosed to you from records protected by federal confidentiality rules (42 CFR part 2). The federal rules prohibit you from making any further disclosure of this information unless further disclosure is expressly permitted by the written consent of the person to whom it pertains or as otherwise permitted by 42 CFR part 2. A general authorization for the release of medical or other information is NOT sufficient for this purpose. The Federal rules restrict any use of the information to criminally investigate or prosecute any alcohol or drug abuse patient.The records that you are about to access may contain highly sensitive health information, the redisclosure of which is protected by Article 27-F of the [facility] Public Health law. If you continue you may have access to information: Regarding HIV / AIDS; Provided by facilities licensed or operated by the [facility] Office of Mental Health; or Provided by the [facility] Office for People With Developmental Disabilities. If such information is present, then the following [facility] mandated warning applies: This information has been disclosed to you from confidential records which are protected by state law. State law prohibits you from making any further disclosure of this information without the specific written consent of the person to whom it pertains, or as otherwise permitted by law. Any unauthorized further disclosure in violation of state law may result in a fine or usp sentence or both. A general authorization for the release of medical or other information is NOT sufficient authorization for further disc losure. 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 UN KNOWN [facility] Propensity to adverse reactions NO KNOWN ALLERGIES NO KNOWN ALLERGIES [facility] Miscellaneous allergy No Known Drug Allergies No Known Drug Allergies [facility] Encounters Encounter Providers Location Date Indications Data Source(s ) Outpatient Attender: Adonis Mcgill mitter: Adonis Manzano MDConsultant: Adonis Manzano MD 008 08/21/2021 12:08:00 PM EST - 08/21/2021 12:08:00 PM EST LAB TEST [facility] LAB TEST Outpatient Attender: Antwon Arredondo mitter: Antwon CORONELeferrer: Antwon Edouard DOConsultant: Adonis Manzano MD 08/21/2021 11:09 :00 AM EST - 08/21/2021 12:00:00 PM EST COUGH/ F/U FROM CF ER [facility] COUGH/ F/U FROM CF ER Patient discharged. Emergency Attender: Adonis Mcgill mitter: Adonis Manzano MDConsultant: Adonis Manzano MD [id number] 08/18/2021 09:50:00 AM EST - 08/18/2021 01:55:00 PM EST SHORTNESS OF BREATH [facility] SHORTNESS OF BREATH Patient discharged. Outpatient Attender: JUAN MIGUEL ABDUL MD Admitter: JUAN MIGUEL ABDUL MDReferrer: MARELY SONG MDConsultant: Adonis Manzano MD 008 2020 09:27:00 AM EDT - 07/23/2021 09:28:00 AM EDT Lab test [facility] Lab test Outpatient Attender: JUAN MIGUEL ABDUL MD Admitter: JUAN MIGUEL ABDUL MDConsultant: Adonis Manzano MD 008 07/11/2021 01:09:00 PM EDT - 07/11/2021 01:09:00 PM EDT RADIOLOGY [facility] RADIOLOGY Outpatient Attender: MARELY Mann DAdmitter: MARLEY SONG MDConsultant: Adonis Manzano MD 008 07/04/2021 11:56:00 AM EDT - 07/04/2021 11:56:00 AM EDT LAB TEST [facility] LAB TEST Outpatient Attender: MARELY Mann DAdmitter: MARELY SONG MDReferrer: MARELY SONG MDConsultant: Adonis Manzano MD 2020 10:47:00 AM EDT - 07/04/2021 11:35:00 AM EDT Hand pain [facility] Hand pain Patient discharged. Outpatient Attender: Magy Mendosa NP [facility] [place] 07/02/2021 03:00:00 PM EDT [facility] ([facility] Outpatient Attender: Renée Caruso NP [facility] [place] 06/29/2021 02:45:00 PM EDT [facility] ([facility]) Office Visit Attender: Katelin Zaragoza NP [facility] [place] 06/25/2021 10:00:00 AM EDT [facility] Outpatient Attender: JUAN MIGUEL ABDUL MD Admitter: JUAN MIGUEL ABDUL MDConsultant: Adonis Manzano MD 008 06/20/2021 07:58:00 AM EDT - 06/20/2021 07:58:00 AM EDT LAB TEST [facility] LAB TEST Outpatient Attender: ABRAHAM PADILLA MD 06/15/2021 08:26:57 AM EDT Lab [facility] [place] ( in Healthcare facility) Attender: ABRAHAM PADILLA MDAdmitter: ABRAHAM PADILLA MDConsultant: Adonis Manzano MD 06/15/2021 07:1 4:00 AM EDT - 06/15/2021 06:28:00 PM EDT [facility] Outpatient Attender: ABRAHAM PADILLA MDAdmitter: ABRAHAM Zamarripa MD 06/15/2021 07:14:00 AM EDT - 06/15/2021 06:28:00 PM EDT ABDOMINAL WALL SEROMA, L76.34 [facility] ABDOMINAL WALL SEROMA, L76.34 Patient discharged. Outpatient Attender: Adonis Mcgill mitter: Adonis Manzano MDConsultant: Adonis Manzano MD 008 06/11/2021 12:14:00 PM EDT - 06/11/2021 12:14:00 PM EDT LAB TEST [facility] LAB TEST Office Visit Attender: ABRAHAM PADILLA [facility] 05/30/2021 11:15:00 AM EDT [facility] ([facility] Outpatient Attender: JUAN MIGUEL ABDUL MD [facility] [place] 05/30/2021 09:45:00 AM EDT [facility] ([facility]) Outpatient Attender: JUAN MIGUEL ABDUL MD Admitter: JUAN MIGUEL ABDUL MDConsultant: Adonis Manzano MD 008 05/28/2021 09:47:00 AM EDT - 05/28/2021 09:47:00 AM EDT LAB TEST [facility] LAB TEST Outpatient Attender: Katelin Zaragoza NP CPSCAORT-IMAPD 07:56:00 AM EDT - 05/25/2021 07:57:00 AM EDT L76.34 [facility] L76.34 Patient discharged. Outpatient Attender: Adonis Mcgill mitter: Adonis Manzano MDConsultant: Adonis Manzano MD 008 05/07/2021 08:52:00 AM EDT - 05/07/2021 08:52:00 AM EDT LAB TEST [facility] LAB TEST Outpatient Attender: Adonis Mcgill mitter: Adonis Manzano MDReferrer: Adonis Manzano MDConsultant: Adonis Manzano MD 05/07/2021 08:03: 00 AM EDT - 05/07/2021 08:40:00 AM EDT HEALTH CHECK UP [facility] HEALTH CHECK UP Patient discharged. Office Visit Attender: Katelin Zaragoza NP [facility] [place] 04/30/2021 10:30:00 AM EDT [facility] ([facility] Office Visit Attender: Katelin Zaragoza NP [facility] [place] 04/18/2021 02:00:00 PM EDT [facility] ([facility]) Outpatient Attender: JUAN MIGUEL ABDUL MD [facility] [place] 04/18/2021 09:30:00 AM EDT [facility] ([facility]) Outpatient Attender: JUAN MIGUEL ABDUL MD Admitter: JUAN MIGUEL ABDUL MDConsultant: Adonis Manzano MD 008 04/16/2021 07:09:00 AM EDT - 04/16/2021 07:09:00 AM EDT LAB TEST [facility] LAB TEST Outpatient Attender: Pan Ambrose MD [facility] at [place] 04/14/2021 03:11:00 AM EDT [facility] ([facility]) Office Visit Attender: HELLEN CROSS MD [facility] Internal Med a [facility] [place] 04/14/2021 03:08:00 AM EDT [facility] ([facility] Outpatient Attender: JUAN MIGUEL ABDUL MD [facility] at [place] 04/13/2021 10:12:00 AM EDT [facility] ([facility]) Inpatient Attender: JUAN MIGUEL ABDUL MD 04/12/2021 05:58:0 3 PM EDT Lab [facility] Attender: JUAN MIGUEL ABDUL MD 02:26:00 PM EDT - 04/14/2021 11:21:00 AM EDT [facility] Inpatient Attender: JUAN MIGUEL ABDUL MDAdmitter: JUAN MIGUEL RICHARDSON MD 04/12/2021 02:26:00 PM EDT - 04/14/2021 11:21:00 AM EDT ACUTE ON CHRONIC CONGESTIVE HEART FAILURE/POSTPROCEDURAL SER [facility] ACUTE ON CHRONIC CONGESTIVE HEART FAILUR E/POSTPROCEDURAL SER Patient discharged. ( in Healthcare facility) Attender: JAYJAY ABDUL MDAdmitter: JUAN MIGUEL ABDUL MDConsultant: Adonis Manzano MD 04/12/2021 02:26: 00 PM EDT [facility] Outpatient Attender: JUAN MIGUEL ABDUL MD [facility] at [place] 04/12/2021 09:24:00 AM EDT [facility] ([facility]) Outpatient Attender: RIAZ FUNK dmitter: RIAZ BARRAGAN PAReferrer: MARELY SONG MDConsultant: Adonis Manzano MD [phone] 04/11/2021 1 0:28:00 PM EDT - 04/12/2021 12:22:00 PM EDT HYPOXIA [facility] HYPOXIA Patient discharged. Office Visit Attender: Katelin Zaragoza NP [facility] Internal Med a t [place] 04/03/2021 11:00:00 AM EDT [facility] ([facility]) (TEL) .[facility] 04/03/2021 12:00:00 AM EDT eCW1 ([facility] [place]) (TEL) .[facility] 04/03/2021 12:00:00 AM EDT eCW1 ([facility]) Outpatient .[facility] 04/03/2021 12:00:00 AM EDT eCW1 ([facility]) Office Visit Attender: Katelin Zaragoza PHYSICIAN'S AIDE CMP Internal Med a [facility] 03/28/2021 02:30:00 PM EDT [facility] ([facility]) Outpatient Attender: FIDEL SMITHP [facility] [place] 03/28/2021 10:15:00 AM EDT [facility] ([facility]) Outpatient Attender: JUAN MIGUEL ABDUL MD Admitter: JUAN MIGUEL ABDUL MDConsultant: Adonis Manzano MD 008 03/27/2021 07:11:00 AM EDT - 03/27/2021 07:11:00 AM EDT Lab test [facility] Lab test Office Visit Attender: ABRAHAM PADILLA MD CMP Internal Med at [facility] 03/21/2021 03:33:00 AM EDT [facility] ([facility]) Office Visit Attender: ABRAHAM PADILLA MD CMP Internal Med at [facility] 03/20/2021 02:43:00 AM EDT [facility] ([facility]) Office Visit Attender: ABRAHAM PADILLA MD CMP Internal Med at [facility] 03/19/2021 02:40:00 AM EDT [facility] ([facility]) Outpatient Attender: Ramón Hong MD [facility] [place] 03/19/2021 02:36:00 AM EDT [facility] ([facility]) Outpatient Attender: TERESA PACHECO MD CMP Internal Med at [facility] 03/18/2021 02:26:00 AM EDT [facility] ([facility]) Office Visit Attender: Kriss Coon MD [facility] [place] 03/17/2021 02:29:00 AM EDT [facility] ([facility]) Outpatient Attender: Ramón Hong MD [facility] [place] 03/16/2021 02:32:00 AM EDT [facility] ([facility]) Office Visit Attender: ABRAHAM PADILLA MD CMP [facility] Med at [facility] 03/16/2021 02:30:00 AM EDT [facility] ([facility]) Office Visit Attender: ANURADHA MINA MD [facility] at [place] 03/15/2021 02:33:00 AM EDT [facility] ([facility] Office Visit Attender: ABRAHAM PADILLA MD CMP [facility] at [facility] 03/14/2021 02:41:00 AM EDT [facility] ([facility]) [place] ( in Healthcare facility) Attender: ABRAHAM PADILLA MDAdmitter: ABRAHAM PADILLA MDConsultant: Adonis Manzano MD 03/13/2021 11:41:00 AM ED T [facility] Inpatient Attender: ABRAHAM PADILLA MD 03/13/2021 11:41:00 AM EDT [facility] Inpatient Attender: ABRAHAM PADILLA MD 03/13/2021 07:15:17 AM EDT Lab [facility] Inpatient Attender: ABRAHAM PADILLA MDAdmitter: ABRAHAM Zamarripa MD 03/13/2021 05:50:00 AM EDT - 03/21/2021 03:00:00 PM EDT INCISIONAL HERNIA REPAIR [facility] INCISIONAL HERNIA REPAIR Patient discharged. Outpatient Attender: ABRAHAM Mcdermott keron: DR FUNK OTHERAdmitter: ABRAHAM HUGHESIConsultant: Adonis Manzano MD 008 03/01/2021 09:58:0 0 AM EDT - 03/01/2021 09:58:00 AM EDT LAB TEST [facility] LAB TEST Outpatient 02/21/2021 12:10:00 PM EDT [facility] Outpatient Attender: JUAN MIGUEL ABDUL MD [facility] at [place] 02/21/2021 10:30:00 AM EDT [facility] ([facility]) Outpatient Attender: ABRAHAM PADILLA MD [facility]MP [facility] at [facility] 2021 10:00:00 AM EDT [facility] ([facility]) Outpatient Attender: JUAN MIGUEL ABDUL MD [facility] at [place] 01/15/2021 10:15:00 AM EDT [facility] ([facility]) Outpatient Attender: DR OG Persaud er: DR OG CURRANConsultant: Adonis Manzano MD 008 01/11/2021 09:03:00 AM EDT - 01/11/2021 09:03:00 AM EDT Lab test [facility] Lab test Outpatient Attender: Adonis Mcgill mitter: Adonis Manzano MDConsultant: Adonis Manzano MD 008 01/09/2021 09:01:00 AM EDT - 01/09/2021 09:01:00 AM EDT Lab test [facility] Lab test Outpatient Attender: Adonis Mcgill mitter: Adonis Manzano MDReferrer: Adonis Manzano MDConsultant: Adonis Manzano MD 01/09/2021 07:49: 00 AM EDT - 01/09/2021 08:20:00 AM EDT Health check up [facility] Health check up Patient discharged. Outpatient Attender: Abraham Thomas MDAdmitter: Abraham Thomas MD [id number] 01/04/2021 01:19:14 PM EDT - 01/16/2021 10:48:[address] [facility] Patient discharged. Outpatient Attender: Abraham Thomas MD [place] 01/03/2021 10:30:00 AM EDT [facility] ([facility]) Emergency Attender: RIAZ FUNK dmitter: RIAZ BARRAGAN PAReferrer: RIAZ BARRAGAN PAConsultant: Adonis Manzano MD [phone] 12/29/2020 05:5 0:00 PM EDT - 12/29/2020 07:03:00 PM EDT CUT ON RIGHT WRIST [facility] CUT ON RIGHT WRIST Patient discharged. Outpatient Attender: JUAN MIGUEL ABDUL MD Admitter: JUAN MIGUEL ABDUL MDConsultant: Adonis Manzano MD 008 12/22/2020 07:41:00 AM EDT - 12/22/2020 07:41:00 AM EDT Lab test [facility] Lab test Outpatient Attender: JUAN MIGUEL ABDUL MD [facility] Internal Med at [place] 12/14/2020 08:56:00 AM EDT [facility] ([facility]) Outpatient Attender: JUAN MIGUEL ABDUL MD [facility] at [place] 12/13/2020 02:25:00 AM EDT [facility] ([facility]) Inpatient Attender: JUAN MIGUEL ABDUL MD 12/12/2020 06:24:2 7 PM EDT Lab [facility] [place] ( in Healthcare facility) Attender: JAYJAY ABDUL MDAdmitter: JUAN MIGUEL ABDUL MDConsultant: Adonis Manzano MD 021 04:09:00 PM EDT - 12/14/2020 12:47:00 PM EDT [facility] Inpatient Attender: JUAN MIGUEL ABDUL MDAdmitter: JUAN MIGUEL RICHARDSON MD 12/12/2020 04:09:00 PM EDT - 12/14/2020 12:47:00 PM EDT ACUTE KIDNEY INJURY [facility] ACUTE KIDNEY INJURY Patient discharged. Inpatient Attender: JUAN MIGUEL ABDUL MD 12/12/2020 04:09:0 0 PM EDT [facility] Outpatient Attender: JUAN MIGUEL ABDUL MD [facility] at [place] 12/12/2020 09:40:00 AM EDT [facility] ([facility]) Outpatient Attender: TERESA PACHECO MD CMP Internal Med at [facility] 12/11/2020 02:30:00 PM EDT [facility] ([facility]) Outpatient Attender: JUAN MIGUEL ABDUL MD 11/24/2020 08:34:1 4 AM EST Lab [facility] [place] ( in Healthcare facility) Attender: JUAN MIGUEL ABDUL MD 11/24/2020 06:37:00 AM EST - 11/24/2020 09:07:00 AM EST [facility] Outpatient Attender: JUAN MIGUEL ABDUL MDAdmitter: JUAN MIGUEL RICHARDSON MD 11/24/2020 06:37:00 AM EST - 11/24/2020 09:07:00 AM EST LONGSTANDING PERSISTENT AFIB CARDIOVERSION [facility] LONGSTANDING PERSISTENT AFIB CARDIOVERSION Patient discharged. Outpatient Attender: JUAN MIGUEL ABDUL MD [facility] [place] 11/10/2020 10:15:00 AM EST [facility] ([facility]) Outpatient Attender: JUAN MIGUEL ABDUL MD [facility] [place] 11/03/2020 07:51:00 AM EST [facility] ([facility] [place] ( in Healthcare facility) Attender: JUAN MIGUEL ABDUL MD 11/01/2020 10:17:00 AM EST - 11/03/2020 12:35:00 PM EST [facility] In[facility] Attender: TERESA PACHECO MD 11/01/2020 10:17:00 A M EST [facility] Outpatient Attender: ABRAHAM PADILLA MD [facility] Internal Med at [facility] 11/01/2020 07:08:00 AM EST [facility] ([facility]) Outpatient Attender: JUAN MIGUEL ABDUL MD [facility] Internal Med at [place] 11/01/2020 01:10:00 AM EST [facility] ([facility]) Inpatient Attender: JUAN MIGUEL ABDUL MD Attender: TERESA PACHECO MDAdmitter: TERESA PACHECO MD 10/31/2020 06:49:32 AM EST Lab [facility] Inpatient Attender: JUAN MIGUEL ABDUL MD Attender: TERESA PACHECO MDAdmitter: TERESA PACHECO MD 10/31/2020 06:22:00 AM EST - 11/03/2020 12:35:00 PM EST ATRIAL FIBRILLATION ANEMIA CONGESTIVE HEART FAILURE ABLATION [facility] ATRIAL FIBRILLATION ANEMIA CONGESTIVE HE ART FAILURE ABLATION Patient discharged. Outpatient Attender: Renée Caruso NP [facility] Internal [facility] at [place] 10/30/2020 08:15:00 AM EST [facility] ([facility]) Outpatient Attender: JUAN MIGUEL ABDUL MD ED-LABPNP 01/2021 04:22:00 PM EST - 10/27/2020 04:23:00 PM EST [id number] [id number] Patient discharged. ( in Healthcare facility) Attender: JUAN MIGUEL ABDUL MD 10/20/2020 03:21:00 PM EST - 10/20/2020 08:04:00 PM EST [facility] Outpatient Attender: JUAN MIGUEL ABDUL MDAdmitter: JUAN MIGUEL RICHARDSON MD 10/20/2020 03:21:00 PM EST - 10/20/2020 08:04:00 PM EST AFIB [facility] AFIB Patient discharged. Outpatient Attender: DR OG Persaud er: DR FOLEY TRANConsultant: Adonis Manzano MD 008 10/19/2020 09:33:00 AM EST - 10/19/2020 09:33:00 AM EST Lab test [facility] Lab test Outpatient Attender: KRISTIN MONTANA MD CPSCAORT-LABPD 09/23 09:02:00 AM EST - 10/18/2020 09:03:00 AM EST I65.21 [facility] I65.21 Patient discharged. Outpatient Attender: JUAN MIGUEL ABDUL MD Admitter: JUAN MIGUEL ABDUL MDReferrer: KRISTIN MONTANAConsultant: Adonis Manzano MD 008 10/03/2020 09:23:00 AM EST - 10/03/2020 09:23:00 AM EST Lab test [facility] Lab test Office Visit Attender: KRISTIN MONTANA MD Main Office 09/01/2020 01 :00:00 PM EST [facility] ([facility]) Outpatient Attender: Adonis Mcgill mitter: Adonis Manzano MDConsultant: Adonis Manzano MD 008 08/31/2020 10:26:00 AM EST - 08/31/2020 10:26:00 AM EST Radiological examination [facility] Radiological examination Outpatient Attender: Adonis Mcgill mitter: Adonis Manzano MDReferrer: Adonis Manzano MDConsultant: Adonis Manzano MD 08/31/2020 09:30: 00 AM EST - 08/31/2020 10:10:00 AM EST Health check up [facility] Health check up Patient discharged. Inpatient Attender: KRISTIN MONTANA MD 08/23/2020 11:09:11 AM EST Lab [facility] ( in Healthcare facility) Attender: AMANDA MONTANA MDAdmitter: KRISTIN MONTANA MDConsultant: Adonis Manzano MD 08/23/20 10:10:00 AM EST - 08/24/2020 01:10:00 PM EST [facility] Inpatient Attender: KRISTIN MONTANA MDAdmitter: KRISTIN RENEE MD 08/23/2020 10:10:00 AM EST - 08/24/2020 01:10:00 PM EST RIGHT CAROTID STENOSIS I65.21 [facility] RIGHT CAROTID STENOSIS I65.21 Patient discharged. Outpatient Attender: JUAN MIGUEL ABDUL MDReferrer: KRISTEN CAMPOS CPSCAORT-LABCOVLAW 08/18/2020 09:04:00 AM EST - 08/18/2020 09:05:00 AM ES T COVID PREOP [facility] COVID PREOP Patient discharged. Outpatient Attender: JUAN MIGUEL ABDUL MD [facility] Internal Med at [place] 08/03/2020 09:00:00 AM EST [facility] ([facility] Outpatient Attender: KRISTIN MONTANA MD 07/27/2020 10:01:41 AM EST Lab [facility] Outpatient Attender: KRISTIN MONTANA MD 07/27/2020 09 :06:00 AM EST ELECTIVE RIGHT CAROTID ENDARTERECTOMY WITH IDIS [facility] ELECTIVE RIGHT CAROTID ENDARTERECTOMY WI TH [facility] Outpatient Attender: KRISTIN MONTANA MD Main Office 07/12/2020 10:40:0 0 AM EDT [facility] ([facility]) Outpatient Attender: LAURA ACUÑA MDAdmitter: LAURA RUBALCAVA MD 07/07/2020 02:03:00 PM EDT - 07/07/2020 02:53:00 PM EDT OCCLUSION AND STENOSIS OF RIGHT CAROTID ARTERY [facility] OCCLUSION AND STENOSIS OF RIGHT CAROTID ARTERY Patient discharged. Outpatient Attender: 0000{ MADISON 07/07/2020 02:03:00 PM E DT [facility] Outpatient Attender: Adonis Manzano MDAd mitter: Adonis Manzano MDConsultant: Adonis Manzano MD 008 07/03/2020 10:47:00 AM EDT - 07/03/2020 10:48:00 AM EDT Lab test [facility] Lab test Outpatient Attender: Antwon Arredondo mitter: Antwon Martinezerrer: Antwon Edouard DOConsultant: Adonis Manzano MD 07/03/2020 10:16 :00 AM EDT - 07/03/2020 11:00:00 AM EDT Potassium disorder [facility] Potassium disorder Patient discharged. Emergency Attender: CARMELINA MACK PAAd mitter: CARMELINA MACK PAReferrer: CARMELINA MACK PAConsultant: Adonis Manzano MD [phone] 06/25/2020 06:28 :00 PM EDT - 06/25/2020 10:10:00 PM EDT Shortness of breath [facility] Shortness of breath Patient discharged. Outpatient Attender: JUAN MIGUEL ABDUL MD Admitter: JUAN MIGUEL ABDUL MDConsultant: Adonis Manzano MD 008 06/20/2020 09:24:00 AM EDT - 06/20/2020 09:24:00 AM EDT Lab test [facility] Lab test Emergency Attender: To Edouard DOAttender: To Koby longo DO CPSCAORT-ED 06/03/2020 10:11:00 PM EDT - 06/04/2020 01:00:00 AM EDT COUGH, SHORTNESS OF BREATH, FEVER [facility] COUGH, SHORTNESS OF BREATH, FEVER Patient discharged. Outpatient Attender: JUAN MIGUEL ABDUL MD Admitter: JUAN MIGUEL ABDUL MDConsultant: Adonis Manzano MD 008 09/22/2000 09:47:00 AM EST - 11/20/2020 10:14:00 AM EST Screening [facility] Screening Patient discharged. Immunizations Vaccine Date Status Description Data Source(s) Moderna Covid-19 Sars-Cov-2, mRNA, LNP-S, PF, 100 mcg/ 0.5 mL 12/19/2020 12:00:00 AM EDT completed [facility] COVID-19 (Moderna), mRNA, LNP-S, PF, 100 mcg/0.5 mL do se 12/19/2020 12:00:00 AM EDT completed [facility] COVID-19 VACCINE Moderna 12/19/2020 12:00:00 AM EDT completed [facility] Vaccine Series Complete: YESThis Data wa s Submitted to [facility] Via [employer]. COVID-19 (Moderna), mRNA, LNP-S, PF, 100 mcg/0.5 mL do se 11/21/2020 12:00:00 AM EST completed [facility] COVID-19 VACCINE Moderna 11/21/2020 12:00:00 AM EST completed [facility] Vaccine Series Complete: NOThis Data was Submitted to [facility] [employer]. Moderna Covid-19 Sars-Cov-2, mRNA, LNP-S, PF, 100 mcg/ 0.5 mL 11/20/2020 11:00:00 PM EST completed [facility] ([facility]) Medications Medication Brand Name Start Date Product Form Dose Route Admi nistrative Instructions Pharmacy Instructions Status Indications Reaction Description Data Source(s) Ergocalciferol 71276 UNT Oral Capsule Vitamin D 44645I U Oral Capsule Vitamin D 03223IF Oral Capsule 07/04/2021 12:00:00 AM EDT 1 CAPSULE BY MOUTH active <td>Vitamin D 91967QD Oral Capsule</td><td>07/04/2021</td><td>Unknown</td><td>BY MOUTH</td><td>Once a Week</td><td>1 CAPSULE</td><td>4895612</td><td>RxNorm</td><td>TAKE 1 CAPSULE BY MOUTH Once a Week</td> [facility] Melatonin 3 MG Oral Tablet Melatonin 3 MG Oral Tablet 2020 12:00:00 AM EDT 1 TABLET BY MOUTH active <td>Me latonin 3 MG Oral Tablet</td><td>07/04/2021</td><td>Unknown</td><td>BY MOUTH</td><td>DAILY</td><td>1 TABLET</td><td></td><td>RxNorm</td><td>TAKE 1 TABLET BY MOUTH DAILY</td> [facility] Diclofenac Sodium 0.01 MG/MG Topical Gel Diclofenac Sodium 1% Topical application Gel/Jelly Diclofenac Sodium 1% Topical application Gel/Jelly 07/04/2021 12:00:00 AM EDT 2 GRAM TOPICAL active <td>Diclofenac Sodium 1% Topical application Gel/Jelly</td><td>07/04/2021</td><td>Unknown</td><td>TOPICAL</td><td>4 TIMES A DAY</td><td>2 GRAM</td><td>039343</td><td>RxNorm</td><td>APPLY 2 GRAMS TOPICALLY TO AFFECTED AREA 4 TIMES A DAY</td> [facility] Tylenol 8 Hour 650MG Oral Tablet, Extended Release 07/04/2021 12:00:00 AM EDT 1 TABLET BY MOUTH active <td>Tylenol 8 Hour 650MG Oral Tablet, Extended Release</td><td>07/04/2021</td><td>Unknown</td><td>BY MOUTH</td><td> NEEDED EVERY 8HR</td><td>1 TABLET</td><td></td><td>RxNorm</td><td>TAKE 1 TABLET BY MOUTH NEEDED EVERY 8HR</td> [facility] Vitamin D 5000 IU Oral Capsule 05/16/2021 12:00:00 AM EDT 1 CAPSULE BY MOUTH active <td>Vitamin D 5000 IU Oral Capsule</td><td>05/16/2021</td><td>Unknown</td><td>BY MOUTH</td><td>DAILY</td><td>1 CAPSULE</td><td></td><td>RxNorm</td><td>TAKE 1 CAPSULE BY MOUTH DAILY</td> [facility] sitagliptin 50 MG Oral Tablet [Januvia] Januvia 04/18/2021 12:00:0 0 AM EDT ORAL active [facility] ([facility]) Glipizide 5 MG Oral Tablet Glipizide 04/18/2021 12:00:00 AM EDT completed [facility] ([facility]) Insulin Glargine 100 UNT/ML Injectable Solution [Lantus] Barry tus 04/18/2021 12:00:00 AM EDT active M [facility] ([facility]) SODIUM CHLORIDE 0.9% 1000ML BAGF 04/12/2021 01:29:00 A M EDT 150 ml/hr INTRAVENOUS active <td>SODIUM CH LORIDE 0.9% 1000ML BAGF</td><td>04/12/2021</td><td>04/12/2021</td><td>INTRAVENOUS</td><td>X1</t ml/hr</td><td>7855565</td><td>RxNorm</td><td>150 ml/hr INTRAVENOUS X1</td> [facility] Amiodarone hydrochloride 200 MG Oral Tablet AMIODARONE (CORDARONE)200MGFTAB AMIODARONE(CORDARONE)200MGFTAB 04/12/2021 12:49:00 AM EDT 100 mg ORAL active <td>AMIODARONE(CORDARONE)200MGFTAB</td><td>04/12/2021</td><td>04/13/2021</td ><td>ORAL</td><td>DAILY</td><td>100 MG</td><td>[id number]</td><td>RxNorm</td><td>100 MG ORAL DAILY</td> [facility] Nitroglycerin 0.4 MG Sublingual Tablet NITROGLYCERIN(N ITROSTAT)0.4MGFTAB NITROGLYCERIN(NITROSTAT)0.4MGFTAB 04/12/2021 12:19:00 AM EDT 0.4 mg SUBLINGUAL active <td>NITROGLYCERIN(NITROSTAT)0.4MGFTAB</td><td>04/12/2021</td><td>Unknown</td ><td>SUBLINGUAL</td><td>PRNDAILY</td><td>0.4 MG</td><td>[id number]</td><td>RxNorm</td><td>0.4 MG SUBLINGUAL NEEDED DAILY</td> [facility] gabapentin 300 MG Oral Capsule GABAPENTIN(NEURONTIN)30 0MGFCAP GABAPENTIN(NEURONTIN)300MGFCAP 04/12/2021 12:19:00 AM EDT 1 CAP SONNY ORAL active <td>GABAPENTIN(NEURONTIN)300MGFCAP</td><td>04/12/2021</td><td>05/12/2021</td ><td>ORAL</td><td>DAILY</td><td>1 CAPSULE</td><td>[id number]</td><td>RxNorm</td><td>1 CAPSULE ORAL DAILY</td> [facility] Pramipexole dihydrochloride 1 MG Oral Tablet PRAMIPEXO LE(MIRAPEX)1MGFTAB PRAMIPEXOLE(MIRAPEX)1MGFTAB 04/12/2021 12:19:00 AM EDT 1 mg O RAL active <td>PRAMIPEXOLE(MIRAPEX)1MGFTAB</td><td>04/12/2021</td><td>Unknown</td><td>O RAL</td><td>TID</td><td>1 MG</td><td>100425</td><td>RxNorm</td><td>1 MG ORAL 3 TIMES DAILY</td> [facility] carvedilol 3.125 MG Oral Tablet CARVEDILOL(COREG)3.125 MGFTAB CARVEDILOL(COREG)3.125MGFTAB 04/12/2021 12:19:00 AM EDT 6.25 mg ORAL active <td>CARVEDILOL(COREG)3.125MGFTAB</td><td>04/12/2021</td><td>Unknown</td><td> ORAL</td><td>BID</td><td>6.25 MG</td><td>461799</td><td>RxNorm</td><td>6.25 MG ORAL TWICE DAILY</td> [facility] Allopurinol 100 MG Oral Tablet ALLOPURINOL(ZYLOPRIM)10 0 MGFTAB ALLOPURINOL(ZYLOPRIM)100 MGFTAB 04/12/2021 12:19:00 AM EDT 300 mg ORAL active <td>ALLOPURINOL( ZYLOPRIM)100 MGFTAB</td><td>04/12/2021</td><td>Unknown</td><td>ORAL</td><td>DAILY</td><td MG</td><td>039919</td><td>RxNorm</td><td>300 MG ORAL DAILY</td> [facility] Digoxin 0.125 MG Oral Tablet DIGOXIN(LANOXIN)125MCGF TAB DIGOXIN(LANOXIN)125MCGFTAB 04/12/2021 12:19:00 AM EDT 1 U ORAL active <td>DIGOXIN(LANOXIN)125MCGFTAB</td><td>04/12/2021</td><td>05/12/2021</td><td >ORAL</td><td>MWF</td><td>1 TAB</td><td>085626</td><td>RxNorm</td><td>1 TAB ORAL MON, WED, FRI</td> [facility] atorvastatin 20 MG Oral Tablet ATORVASTATIN 20MG(LIPIT OR)FTAB ATORVASTATIN 20MG(LIPITOR)FTAB 04/12/2021 12:19:00 AM EDT 20 mg ORAL active <td>ATORVASTATIN 20MG(LIPITOR)FTAB</td><td>04/12/2021</td><td>Unknown</td><td>ORAL</td><td>DA ANIL</td><td>20 MG</td><td>583055</td><td>RxNorm</td><td>20 MG ORAL DAILY</td> [facility] Furosemide 40 MG Oral Tablet FUROSEMIDE(LASIX) 40MGF TAB FUROSEMIDE(LASIX) 40MGFTAB 04/12/2021 12:19:00 AM EDT 40 mg ORAL activ e <td>FUROSEMIDE(LASIX) 40MGFTAB</td><td>04/12/2021</td><td>Unknown</td><td>ORAL</td><td>BID</td><td >40 MG</td><td>326083</td><td>RxNorm</td><td>40 MG ORAL TWICE DAILY</td> [facility] pantoprazole 40 MG Delayed Release Oral Tablet PANTOPRAZOLE(PROTONIX)40MGFTAB PANTOPRAZOLE(PROTONIX)40MGFTAB 04/12/2021 12:19:00 AM EDT 40 mg ORAL active <td>PANTOPRAZOLE(PROTONIX)40MGFTAB</td><td>04/12/2021</td><td>Unknown</td><t MG</td><td>891831</td><td>RxNorm</td><td>40 MG ORAL DAILY</td> [facility] Amiodarone hydrochloride 200 MG Oral Tablet AMIODARONE (CORDARONE)200MGFTAB AMIODARONE(CORDARONE)200MGFTAB 04/12/2021 12:19:00 AM EDT 200 mg ORAL active <td>AMIODARONE(CORDARONE)200MGFTAB</td><td>04/12/2021</td><td>05/12/2021</td ><td>ORAL</td><td>EVERY OTHER DAY</td><td>200 MG</td><td>565142</td><td>RxNorm</td><td>200 MG ORAL EVERY OTHER DAY</td> [facility] Docusate Sodium 100 MG Oral Capsule [DOK] DOCUSATE SOD IUM(COLACE)100MGFCAP DOCUSATE SODIUM(COLACE)100MGFCAP 04/12/2021 12:19:00 AM EDT 100 m g ORAL active <td>DOCUSATE SODIUM(COLACE)100MGFCAP</td><td>04/12/2021</td><td>Unknown</td><td>ORAL</td> <td>BID</td><td>100 MG</td><td>[id number]</td><td>RxNorm</td><td>100 MG ORAL TWICE DAILY</td> [facility] ferrous sulfate 325 MG Oral Tablet FERROUS SULFATE(IRO N)325MGFTAB FERROUS SULFATE(IRON)325MGFTAB 04/12/2021 12:19:00 AM EDT 325 mg ORAL active <td>FERROUS SULFATE(IRON)325MGFTAB</td><td>04/12/2021</td><td>Unknown</td><td>ORAL</td>< td>BID</td><td>325 MG</td><td>376866</td><td>RxNorm</td><td>325 MG ORAL TWICE DAILY</td> [facility] Lorazepam 1 MG Oral Tablet LORAZEPAM(ATIVAN) 1 MG F* *TAB LORAZEPAM(ATIVAN) 1 MG FTAB 04/12/2021 12:19:00 AM EDT 1 mg ORAL active <td>LORAZEPAM(ATIVAN) 1 MG FTAB</td><td>04/12/2021</td><td>Unknown</td><td>ORAL</td><td>HAGI32P</td><td >1 MG</td><td>336410</td><td>RxNorm</td><td>1 MG ORAL EVERY 12HR NEEDED</td> [facility] apixaban 2.5 MG Oral Tablet [Eliquis] APIXABAN (ELIQUI S) 2.5MGFTAB APIXABAN (ELIQUIS) 2.5MGFTAB 04/12/2021 12:19:00 AM EDT 5 mg ORAL active <td>APIXABAN (ELIQUIS) 2.5MGFTAB</td><td>04/12/2021</td><td>Unknown</td><td>ORAL</td><td>BID</td><t d>5 MG</td><td>4199973</td><td>RxNorm</td><td>5 MG ORAL TWICE DAILY</td> [facility] Ondansetron 4 MG Disintegrating Oral Tablet ONDANSETRO N(ZOFRAN)4MG ODTF ONDANSETRON(ZOFRAN)4MG ODTF 04/12/2021 12:03:00 AM EDT 4 mg SUBLINGUAL active <td>ONDANSETRON( ZOFRAN)4MG ODTF</td><td>04/12/2021</td><td>05/12/2021</td><td>SUBLINGUAL</td><td>PRNQ4H MG</td><td>747836</td><td>RxNorm</td><td>4 MG SUBLINGUAL EVERY 4HR NEEDED </td> [facility] Acetaminophen 325 MG Oral Tablet [Tyleno l] ACETAMINOPHEN (TYLENOL) 325MG TABF ACETAMINOPHEN (TYLENOL) 325MG TABF 04/12/2021 12:03:00 AM ED T 650 mg ORAL active <td>ACETAM INOPHEN (TYLENOL) 325MG TABF</td><td>04/12/2021</td><td>05/12/2021</td><td>ORAL</td><td>PRNQ4H</td>< MG</td><td>913317</td><td>RxNorm</td><td>650 MG ORAL EVERY 4HR NEEDED</td> [facility] Pramipexole dihydrochloride 0.5 MG Oral Tablet [Mirapex] Mirapex 0.5MG Oral Tablet Mirapex 0.5MG Oral Tablet 04/12/2021 12:00:00 AM EDT 0 .5 MILLIGRAMS ORAL active <td>Mirapex 0. 5MG Oral Tablet</td><td>04/12/2021</td><td>Unknown</td><td>ORAL</td><td>1 po qam, 2 po qhs</td><td>0.5 MILLIGRAMS</td><td>076069</td><td>RxNorm</td><td>TAKE 0.5 MILLIGRAMS ORAL 1 po qam, 2 po qhs</td> [facility] Ferrous Sulfate 324 MG Oral Tablet, Enteric Coated 04/12/2021 12:00:00 AM EDT 324 MG ORAL active <td>Ferrous Sulf ate 324 MG Oral Tablet, Enteric Coated</td><td>04/12/2021</td><td>Unknown</td><td>ORAL</td><td>TWICE A DAY</td><td>324 MG</td><td>4648125</td><td>RxNorm</td><td>TAKE 324 MG ORAL TWICE A DAY</td> [facility] atorvastatin 20 MG Oral Tablet [Lipitor] Lipitor 20MG Oral Tablet Lipitor 20MG Oral Tablet 04/12/2021 12:00:00 AM EDT 20 MILLIGRAMS ORAL active <td>Lipitor 20MG Oral Tablet</td><td>04/12/2021</td><td>Unknown</td><td>ORAL</td><td>DAILY</td><td>20 MILLIGRAMS</td><td>731961</td><td>RxNorm</td><td>TAKE 20 MILLIGRAMS ORAL DAILY</td> [facility] SODIUM CHLORIDE 0.9% 1000ML BAGF 04/11/2021 11:17:00 P M EDT 0 ml/hr INTRAVENOUS active <td>SODIUM CH LORIDE 0.9% 1000ML BAGF</td><td>04/11/2021</td><td>04/11/2021</td><td>INTRAVENOUS</td><td>X1</t INTRAVENOUS X1</td> [facility] apixaban 2.5 MG Oral Tablet [Eliquis] APIXABAN (ELIQUI S) 2.5MGFTAB APIXABAN (ELIQUIS) 2.5MGFTAB 04/11/2021 10:39:00 PM EDT 5 mg ORAL active <td>APIXABAN (ELIQUIS) 2.5MGFTAB</td><td>04/11/2021</td><td>04/11/2021</td><td>ORAL</td><td>X1</td> <td>5 MG</td><td>2254397</td><td>RxNorm</td><td>5 MG ORAL ONE TIME DOSE</td> [facility] Acetaminophen 325 MG Oral Tablet [Tyleno l] ACETAMINOPHEN (TYLENOL) 325MG TABF ACETAMINOPHEN (TYLENOL) 325MG TABF 04/11/2021 10:34:00 PM ED T 975 mg ORAL active <td>ACETAM INOPHEN (TYLENOL) 325MG TABF</td><td>04/11/2021</td><td>04/11/2021</td><td>ORAL</td><td>X1</td><td>9 MG</td><td>742520</td><td>RxNorm</td><td>975 MG ORAL ONE TIME DOSE</td> [facility] Lorazepam 1 MG Oral Tablet LORAZEPAM(ATIVAN) 1 MG F* *TAB LORAZEPAM(ATIVAN) 1 MG FTAB 04/11/2021 10:29:00 PM EDT 2 mg ORAL active <td>LORAZEPAM(ATIVAN) 1 MG FTAB</td><td>04/11/2021</td><td>04/11/2021</td><td>ORAL</td><td>X1</td><td>2 MG</td><td>411858</td><td>RxNorm</td><td>2 MG ORAL ONE TIME DOSE</td> [facility] carvedilol 3.125 MG Oral Tablet CARVEDILOL(COREG)3.125 MGFTAB CARVEDILOL(COREG)3.125MGFTAB 04/11/2021 10:29:00 PM EDT 6.25 mg ORAL active <td>CARVEDILOL(COREG)3.125MGFTAB</td><td>04/11/2021</td><td>04/11/2021</td>< td>ORAL</td><td>X1</td><td>6.25 MG</td><td>663598</td><td>RxNorm</td><td>6.25 MG ORAL ONE TIME DOSE</td> [facility] Digoxin 0.125 MG Oral Tablet [Digox] Digox 03/28/2021 12:00:00 AM EDT ORAL active [facility] ([facility]) sacubitril 49 MG / valsartan 51 MG Oral Tablet [Entresto] En tresto 03/28/2021 12:00:00 AM EDT ORAL active M [facility] ([facility]) Spironolactone 25 MG Oral Tablet Spironolactone 03/28/2021 12:00:00 A M EDT ORAL completed [facility] ([facility]) Furosemide 40 MG Oral Tablet [Lasix] Lasix 03/23/2021 12:00:00 AM EDT ORAL completed [facility] ([facility]) Digoxin 0.125 MG Oral Tablet [Digox] Digox 02/21/2021 12:00:00 AM EDT completed [facility] ([facility]) Amiodarone hydrochloride 100 MG Oral Tablet Amiodarone HCL 01/15/2021 12:00:00 AM EDT ORAL completed [facility] ([facility]) Amiodarone hydrochloride 200 MG Oral Tablet Amiodarone HCL 01/15/2021 12:00:00 AM EDT ORAL completed [facility] ([facility]) sacubitril 49 MG / valsartan 51 MG Oral Tablet [Entresto] En tresto 01/15/2021 12:00:00 AM EDT ORAL completed [facility] ([facility]) carvedilol 6.25 MG Oral Tablet Carvedilol 6.25MG Oral Tablet Carvedilol 6.25MG Oral Tablet 01/09/2021 12:00:00 AM EDT 1 TABLET BY MOUTH ac tive <td>Carvedilol 6.25MG Oral Tablet</td><td>01/09/2021</td><td>Unknown</td><td>BY MOUTH</td><td></td><td>1 TABLET</td><td>316195</td><td>RxNorm</td><td>TAKE 1 TABLET BY MOUTH TWICE DAILY</td> [facility] gabapentin 300 MG Oral Capsule Gabapentin 300MG Oral C apsule Gabapentin 300MG Oral Capsule 01/09/2021 12:00:00 AM EDT 1 CAPSULE BY MOUTH active <td>Gabapentin 300MG Oral Capsule</td><td>01/09/2021</td><td>Unknown</td><td>BY MOUTH</td><td></td><td>1 CAPSULE</td><td>309330</td><td>RxNorm</td><td>TAKE 1 CAPSULE BY MOUTH AT BEDTIME</td> [facility] gabapentin 300 MG Oral Capsule Gabapentin 300MG Oral C apsule Gabapentin 300MG Oral Capsule 01/09/2021 12:00:00 AM EDT 1 CAPSULE BY MOUTH active <td>Gabapentin 300MG Oral Capsule</td><td>01/09/2021</td><td>Unknown</td><td>BY MOUTH</td><td></td><td>1 CAPSULE</td><td>280164</td><td>RxNorm</td><td>TAKE 1 CAPSULE BY MOUTH AT BEDTIME</td> [facility] Plenvu Plenvu 01/04/2021 12:00:00 AM EDT active [facility] ([facility]) Amiodarone hydrochloride 200 MG Oral Tablet Amiodarone 200MG Oral Tablet Amiodarone 200MG Oral Tablet 08/31/2020 12:00:00 AM EST 200 MILLIGRAM S ORAL active <td>Amiodarone 2 00MG Oral Tablet</td><td>08/31/2020</td><td>Unknown</td><td>ORAL</td><td>DAILY</td><td>200 MILLIGRAMS</td><td>760973</td><td>RxNorm</td><td>TAKE 1 tablet (200 mg) every other day alternating with 1/2 tablet (100 mg)every other day</td> [facility] Digoxin 0.125 MG Oral Tablet Digoxin 0.125MG Oral Tabl et Digoxin 0.125MG Oral Tablet 08/31/2020 12:00:00 AM EST 1 TABLET ORAL active <td>Digoxin 0.125MG Oral Tablet</td><td>08/31/2020</td><td>Unknown</td><td>ORAL</td><td>NOT ON Friday and Friday</td><td>1 TABLET</td><td>586192</td><td>RxNorm</td><td> TAKE 1 TABLET ORAL daily NOT ON Friday and Friday</td> [facility] apixaban 5 MG Oral Tablet [Eliquis] Eliquis 5MG Oral T ablet Eliquis 5MG Oral Tablet 08/31/2020 12:00:00 AM EST 1 TABLET ORAL active <td>Eliquis 5MG Oral Tablet</td><td>08/31/2020</td><td>Unknown</td><td>ORAL</td><td>TWICE A DAY</td><td>1 TABLET</td><td>1860652</td><td>RxNorm</td><td>TAKE 1 TABLET ORAL TWICE A DAY</td> [facility] sacubitril 97 MG / valsartan 103 MG Oral Tablet [Entresto] Entresto 97MG-103MG Oral Tablet Entresto 97MG-103MG Oral Tablet 08/31/2020 12:00:00 AM EST 1 EACH ORAL active <td>Entresto 9 7MG-103MG Oral Tablet</td><td>08/31/2020</td><td>Unknown</td><td>ORAL</td><td>TWICE A DAY</td><td>1 unit(s)</td><td>0376965</td><td>RxNorm</td><td>TAKE 1 EACH ORAL TWICE A DAY</td> [facility] Digoxin 0.125 MG Oral Tablet Digoxin 0.125MG Oral Tabl et Digoxin 0.125MG Oral Tablet 08/31/2020 12:00:00 AM EST 1 TABLET ORAL active <td>Digoxin 0.125MG Oral Tablet</td><td>08/31/2020</td><td>Unknown</td><td>ORAL</td><td>NOT ON Friday and Friday</td><td>1 TABLET</td><td>991842</td><td>RxNorm</td><td> TAKE 1 TABLET ORAL daily NOT ON Friday and Friday</td> [facility] pantoprazole 20 MG Delayed Release Oral Tablet [Protonix] Protonix 20 MG Oral Tablet, Delayed Release Protonix 20 MG Oral Tablet, Delayed Release 08/31/2020 12:00:00 AM EST 1 TABLET ORAL active <td>Protonix 20 MG Oral Tablet, Delayed Release</td><td>08/31/2020</td><td>Unknown</td><td>ORAL</td><td>DAILY</td><td>1 TABLET</td><td>442116</td><td>RxNorm</td><td>TAKE 1 TABLET ORAL DAILY</td> [facility] Allopurinol 300 MG Oral Tablet Allopurinol 300MG Oral Tablet Allopurinol 300MG Oral Tablet 08/31/2020 12:00:00 AM EST 1 TABLET ORAL acti ve <td>Allopurinol 300MG Oral Tablet</td><td>08/31/2020</td><td>Unknown</td><td>ORAL</td><td>AT BEDTIME</td><td>1 TABLET</td><td>129553</td><td>RxNorm</td><td>1 TABLET ORAL AT BEDTIME</td> [facility] Allopurinol 300 MG Oral Tablet Allopurinol 300MG Oral Tablet Allopurinol 300MG Oral Tablet 08/31/2020 12:00:00 AM EST 1 TABLET ORAL acti ve <td>Allopurinol 300MG Oral Tablet</td><td>08/31/2020</td><td>Unknown</td><td>ORAL</td><td>AT BEDTIME</td><td>1 TABLET</td><td>737213</td><td>RxNorm</td><td>1 TABLET ORAL AT BEDTIME</td> [facility] Cholecalciferol 1000 UNT Oral Tablet Vitamin D 1000IU Oral Tablet Vitamin D 1000IU Oral Tablet 08/31/2020 12:00:00 AM EST 1 TABLET BY MOUTH active <td>Vitamin D 1000IU Oral Tablet</td><td >08/31/2020</td><td>Unknown</td><td>BY MOUTH</td><td></td><td>1 TABLET</td><td>029411</td><td>RxNorm</td><td>TAKE 1 TABLET BY MOUTH DAILY</td> [facility] ezetimibe 10 MG Oral Tablet [Zetia] Zetia 10MG Oral Ta blet Zetia 10MG Oral Tablet 08/31/2020 12:00:00 AM EST 1 TABLET BY MOUTH active <td>Zetia 10MG Oral Tablet</td><td>08/31/2020</td><td>Unknown</td><td>BY MOUTH</td><td>DAILY</td><td>1 TABLET</td><td>188099</td><td>RxNorm</td><td>TAKE 1 TABLET BY MOUTH DAILY</td> [facility] sitagliptin 100 MG Oral Tablet [Januvia] Januvia 100MG Oral Tablet Januvia 100MG Oral Tablet 08/31/2020 12:00:00 AM EST 1 TABLET ORAL act jessi <td>Januvia 100MG Oral Tablet</td><td>08/31/2020</td><td>Unknown</td><td>ORAL</td><td>DAILY</td><td>1 TABLET</td><td>385862</td><td>RxNorm</td><td>TAKE 1 TABLET BY MOUTH DAILY for blood sugar</td> [facility] atorvastatin 80 MG Oral Tablet [Lipitor] Lipitor 80MG Oral Tablet Lipitor 80MG Oral Tablet 08/31/2020 12:00:00 AM EST 0 TABLET ORAL acti ve <td>Lipitor 80MG Oral Tablet</td><td>08/31/2020</td><td>Unknown</td><td>ORAL</td><td>DAILY</td><td></t d><td>783888</td><td>RxNorm</td><td>TAKE 1/2 TABLET ORAL DAILY</td> [facility] apixaban 5 MG Oral Tablet [Eliquis] Eliquis 5MG Oral T ablet Eliquis 5MG Oral Tablet 08/31/2020 12:00:00 AM EST 1 TABLET ORAL active <td>Eliquis 5MG Oral Tablet</td><td>08/31/2020</td><td>Unknown</td><td>ORAL</td><td>TWICE A DAY</td><td>1 TABLET</td><td>7718911</td><td>RxNorm</td><td>TAKE 1 TABLET ORAL TWICE A DAY</td> [facility] ezetimibe 10 MG Oral Tablet [Zetia] Zetia 10MG Oral Ta blet Zetia 10MG Oral Tablet 08/31/2020 12:00:00 AM EST 1 TABLET BY MOUTH active <td>Zetia 10MG Oral Tablet</td><td>08/31/2020</td><td>Unknown</td><td>BY MOUTH</td><td>DAILY</td><td>1 TABLET</td><td>298634</td><td>RxNorm</td><td>TAKE 1 TABLET BY MOUTH DAILY</td> [facility] clopidogrel 75 MG Oral Tablet [Plavix] Plavix 75MG Ora l Tablet Plavix 75MG Oral Tablet 08/31/2020 12:00:00 AM EST 1 TABLET BY MOUTH active <td>Plavix 75MG Oral Tablet</td><td>08/31/2020</td><td>Unknown</td><td>BY MOUTH</td><td></td><td>1 TABLET</td><td>060993</td><td>RxNorm</td><td>TAKE 1 TABLET BY MOUTH DAILY</td> [facility] Lorazepam 1 MG Oral Tablet LORazepam 1MG Oral Tablet LORazep am 1MG Oral Tablet 08/31/2020 12:00:00 AM EST 1 MILLIGRAMS ORAL active <td>LORazepam 1MG Oral Tablet</td><td>08/31/2020</td><td>Unknown</td><td>ORAL</td><td> NEEDED EVERY 12HR</td><td>1 MILLIGRAMS</td><td></td><td>RxNorm</td><td>TAKE 1 MILLIGRAMS ORAL NEEDED EVERY 12HR</td> [facility] Furosemide 40 MG Oral Tablet Furosemide 40MG Oral Tabl et Furosemide 40MG Oral Tablet 08/31/2020 12:00:00 AM EST 1.5 TABLET ORAL active <td>Furosemide 40MG Oral Tablet</td><td>08/31/2020</td><td>Unknown</td><td>ORAL</td><td>in AM and 1 tab at PM</td><td>1.5 TABLET</td><td>565650</td><td>RxNorm</td><td>TAKE 2 TABLET ORAL in AM and 1 tab at PM</td> [facility] Lorazepam 1 MG Oral Tablet LORazepam 1MG Oral Tablet LORazep am 1MG Oral Tablet 08/31/2020 12:00:00 AM EST 1 MILLIGRAMS ORAL active <td>LORazepam 1MG Oral Tablet</td><td>08/31/2020</td><td>Unknown</td><td>ORAL</td><td> NEEDED EVERY 12HR</td><td>1 MILLIGRAMS</td><td></td><td>RxNorm</td><td>TAKE 1 MILLIGRAMS ORAL NEEDED EVERY 12HR</td> [facility] Allopurinol 300 MG Oral Tablet Allopurinol 300MG Oral Tablet Allopurinol 300MG Oral Tablet 08/31/2020 12:00:00 AM EST 1 TABLET ORAL acti ve <td>Allopurinol 300MG Oral Tablet</td><td>08/31/2020</td><td>Unknown</td><td>ORAL</td><td>AT BEDTIME</td><td>1 TABLET</td><td>773185</td><td>RxNorm</td><td>1 TABLET ORAL AT BEDTIME</td> [facility] ezetimibe 10 MG Oral Tablet [Zetia] Zetia 10MG Oral Ta blet Zetia 10MG Oral Tablet 08/31/2020 12:00:00 AM EST 1 TABLET BY MOUTH active <td>Zetia 10MG Oral Tablet</td><td>08/31/2020</td><td>Unknown</td><td>BY MOUTH</td><td>DAILY</td><td>1 TABLET</td><td>951398</td><td>RxNorm</td><td>TAKE 1 TABLET BY MOUTH DAILY</td> [facility] Glyburide 5 MG Oral Tablet glyBURIDE 5MG Oral Tablet glyBURI DE 5MG Oral Tablet 08/31/2020 12:00:00 AM EST 2 TABLET ORAL active <td>glyBURIDE 5MG Oral Tablet</td><td>08/31/2020</td><td>Unknown</td><td>ORAL</td><td>DAILY</td><td>2 TABLET</td><td>087700</td><td>RxNorm</td><td>TAKE 2 TABLET ORAL DAILY</td> [facility] Lorazepam 1 MG Oral Tablet LORazepam 1MG Oral Tablet LORazep am 1MG Oral Tablet 08/31/2020 12:00:00 AM EST 1 MILLIGRAMS ORAL active <td>LORazepam 1MG Oral Tablet</td><td>08/31/2020</td><td>Unknown</td><td>ORAL</td><td> NEEDED EVERY 12HR</td><td>1 MILLIGRAMS</td><td>507478</td><td>RxNorm</td><td>TAKE 1 MILLIGRAMS ORAL NEEDED EVERY 12HR</td> [facility] Pramipexole dihydrochloride 0.5 MG Oral Tablet [Mirapex] Mirapex 0.5MG Oral Tablet Mirapex 0.5MG Oral Tablet 08/31/2020 12:00:00 AM EST 1 TABLET OR AL active <td>Mirapex 0.5MG Or al Tablet</td><td>08/31/2020</td><td>Unknown</td><td>ORAL</td><td>THREE TIMES A DAY</td><td>1 TABLET</td><td>087803</td><td>RxNorm</td><td>TAKE 2 TABLET ORAL in the morning and 1 tablet by mouth at bedtime</td> [facility] carvedilol 12.5 MG Oral Tablet Carvedilol 12.5MG Oral Tablet Carvedilol 12.5MG Oral Tablet 08/31/2020 12:00:00 AM EST 1 TABLET BY MOUTH ac tive <td>Carvedilol 12.5MG Oral Tablet</td><td>08/31/2020</td><td>Unknown</td><td>BY MOUTH</td><td>TWICE A DAY</td><td>1 TABLET</td><td>090576</td><td>RxNorm</td><td>TAKE 1 TABLET BY MOUTH TWICE A DAY</td> [facility] apixaban 5 MG Oral Tablet [Eliquis] Eliquis 5MG Oral T ablet Eliquis 5MG Oral Tablet 08/31/2020 12:00:00 AM EST 1 TABLET ORAL active <td>Eliquis 5MG Oral Tablet</td><td>08/31/2020</td><td>Unknown</td><td>ORAL</td><td>TWICE A DAY</td><td>1 TABLET</td><td>9907365</td><td>RxNorm</td><td>TAKE 1 TABLET ORAL TWICE A DAY</td> [facility] Spironolactone 25 MG Oral Tablet Spironolactone 25MG O ral Tablet Spironolactone 25MG Oral Tablet 08/31/2020 12:00:00 AM EST 1 TABLET ORAL active <td>Spironolactone 25MG Oral Tablet</td><td>08/31/2020</td><td>Unknown</td><td>ORAL</td><td>mon-Fri only</td><td>1 TABLET</td><td>305181</td><td>RxNorm</td><td>TAKE 1 TABLET ORAL mon-Fri only</td> [facility] gabapentin 100 MG Oral Capsule Gabapentin 100MG Oral C apsule Gabapentin 100MG Oral Capsule 08/31/2020 12:00:00 AM EST 1 CAPSULE BY MOUTH active <td>Gabapentin 100MG Oral Capsule</td><td>08/31/2020</td><td>Unknown</td><td>BY MOUTH</td><td></td><td>1 CAPSULE</td><td>456817</td><td>RxNorm</td><td>TAKE 1 CAPSULE BY MOUTH at bedtime x 3 days, then increase to 2 caps at bedtime x 3 days then take 3 caps at bedtime</td> [facility] Insurance Providers Payer name Policy type / Coverage type Policy ID Covered green party ID Covered green party's relationship to ruggiero Policy [place] [facility] [place] [id number] Spouse [id number] [facility] Commercial [id number] Family Dependent [id number] [facility] [place] [id number] Self [id number] [employer] [id number] [employer] [id number] Spo [id number] INSURANCE COVID-19 [id number] [id number] MEDICARE [id number] Other [id number] MEDICARE DARYL [id number] S [id number] [employer] [place] [id number] SPOUSE [id number] [employer] [place] [id number] SPOUSE [id number] [facility] [id number] SPOUSE [id number] BLUE CROSS -RECURRING [id number] undefined [id number] [employer] [place] NONE Other NONE [employer] B [id number] P [id number] [place] PPO 302/307 [id number] [id number] [facility] [id number] [facility] INSURANCE-CLINIC [id number]ed [id number] [facility] INSURANCE-OP [id number] [facility] INSURANCE [id number] undefined [id number] [employer] [place] [id number] [place] [id number] [place] [place] [id number] [place] [id number] [facility] UNAVAILABLE SP UNAVAIL [address] [facility] -O/P [id number] [facility] [id number] [facility] -O [id number] [facility] [place] [id number] SP [id number] [place] PPO 302/307 [id number] [facility] BC [id number] undefined [id number] [facility]- [place] [id number] unde fined [id number] [facility] HEA [id number] SP [id number] [employer] [place] [id number] Other [id number] MEDICARE [facility] [id number] S [id number] Problems, Conditions, and Diagnoses Code Display Name Description Problem Type Effective Dates Data Source(s) J1282 PNEUMONIA DUE TO CORONAVIRUS DISEASE 201 9 PNEUMONIA DUE TO CORONAVIRUS DISEASE 2019 Diagnosis 08/21/2021 11:09:00 AM [facility] U071 COVID-19 COVID-19 Diagnosis 08/21/2021 11:09:00 AM ES T [facility] Z950 Presence of cardiac pacemaker Presence of cardiac pace maker Diagnosis 08/18/2021 09:50:00 AM [facility] R0602 Shortness of breath Shortness of breath Diagnosis 1 10/18/2020 09:50:00 AM [facility] [id number] Nicotine dependence, cigarettes, in joe ssion Nicotine dependence, cigarettes, in remission Diagnosis 07/23/2021 09:27:00 AM EDT [facility] Z122 Encounter for screening for malignant ne oplasm of respiratory organs Encounter for screening for malignant neoplasm of respiratory organs Diagnosis 07/23/2021 09:27:00 AM EDT [facility] E119 Type 2 diabetes mellitus without complic ations Type 2 diabetes mellitus without complications Diagnosis 07/23/2021 09:27:00 AM EDT [facility] E559 Vitamin D deficiency, unspecified Vitamin D defi ciency, unspecified Diagnosis 07/23/2021 09:27:00 AM EDT [facility] E785 Hyperlipidemia, unspecified Hyperlipidemia, unspecifie d Diagnosis 07/23/2021 09:27:00 AM EDT [facility] I4820 Chronic atrial fibrillation, unspecified Chronic atrial fibrillation, unspecified Diagnosis 07/23/2021 09:27:00 AM EDT [facility] I5032 Chronic diastolic (congestive) heart kathrine lure Chronic diastolic (congestive) heart failure Diagnosis 07/23/2021 09:27:00 AM EDT [facility] R270 Ataxia, unspecified Ataxia, unspecified Diagnosis 1 01:09:00 PM EDT [facility] G2581 Restless legs syndrome Restless legs syndrome Diagnosi s 07/04/2021 11:56:00 AM EDT [facility] I480 Paroxysmal atrial fibrillation Paroxysmal atrial fibri llation Diagnosis 07/04/2021 11:56:00 AM EDT [facility] [id number] Chronic gout, unspecified, without tophu s (tophi) Chronic gout, unspecified, without tophus (tophi) Diagnosis 07/04/2021 10:47:00 AM E DT [facility] D649 Anemia, unspecified Anemia, unspecified Diagnosis 1 10:47:00 AM EDT [facility] E8342 Hypomagnesemia Hypomagnesemia Diagnosis 07/04/2021 10:47: 00 AM EDT [facility] G4700 Insomnia, unspecified Insomnia, unspecified Diagnosis 07/04/2021 10:47:00 AM EDT [facility] M2550 Pain in unspecified joint Pain in unspecified joint Di agnosis 07/04/2021 10:47:00 AM EDT [facility] I2510 Atherosclerotic heart diseas e of [place] coronary artery without angina pectoris Atherosclerotic heart disease of [place] coronary artery without angina pectoris Diagnosis 07/04/2021 10:47:00 AM EDT [facility] N189 Chronic kidney disease, unspecified Chronic kidn ey disease, unspecified Diagnosis 07/04/2021 10:47:00 AM EDT [facility] I739 Peripheral vascular disease, unspecified Peripheral vascular disease, unspecified Diagnosis 07/04/2021 10:47:00 AM EDT [facility] I4891 Unspecified atrial fibrillation Unspecified atrial fib rillation Diagnosis 07/04/2021 10:47:00 AM EDT [facility] I509 Heart failure, unspecified Heart failure, unspecified Diagnosis 07/04/2021 10:47:00 AM EDT [facility] R079 Chest pain, unspecified Chest pain, unspecified Diagno sis 06/20/2021 07:58:00 AM [facility] Q68652 Encounter for observation fo r suspected exposure to other biological agents ruled out Encounter for observation for suspected exposure to other biological agents ruled out Diagnosis 06/11/2021 12:14:00 PM EDT 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 Postprocedural seroma of a digestive sys tem organ or structure following other procedure Diagnosis 05/07/2021 08:03:00 AM [facility] K432 Incisional hernia without obstruction or gangrene Incisional hernia without obstruction or gangrene Diagnosis 05/07/2021 08:03:00 AM T [facility] I255 Ischemic cardiomyopathy Ischemic cardiomyopathy Diagno sis 05/07/2021 08:03:00 AM [facility] [id number] 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 Presence of automatic (implantable) cardiac defibrillator Diagnosis 04/16/20 07:09:00 AM T [facility] I420 Dilated cardiomyopathy Dilated cardiomyopathy Diagnosi s 04/16/2021 07:09:00 AM EDT [facility] R509 Fever, unspecified Fever, unspecified Diagnosis 1 10:28:00 PM EDT [facility] R609 Edema, unspecified Edema, unspecified Diagnosis 1 10:28:00 PM EDT [facility] I5033 Acute on chronic diastolic (congestive) heart failure Acute on chronic diastolic (congestive) heart failure Diagnosis 04/11/2021 10:28:00 PM EDT [facility] Z7901 retirement (current) use of anticoagulant s retirement (current) use of a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 Diagnosis 03/01/2021 09:58:00 AM EDT [facility] Z86.010 Personal history of colonic polyps Personal hist ory of colonic polyps Diagnosis 01/16/2021 07:46:00 AM EDT [facility] E876 Hypokalemia Hypokalemia Diagnosis 01/09/2021 09:01:00 AM EDT [facility] Z4802 Encounter for removal of sutures Encounter for r emoval of sutures Diagnosis 01/09/2021 07:49:00 AM EDT [facility] G629 Polyneuropathy, unspecified Polyneuropathy, unspecifie d Diagnosis 01/09/2021 07:49:00 AM EDT [facility] K00713 Unspecified place in single- family (private) house as the place of occurrence of the external cause Unspecified place in single-family (priv ate) house as the place of occurrence of the external cause Diagnosis 12/29/2020 05:50:00 PM EDT [facility] Y9389 Activity, other specified Activity, other specified Di agnosis 12/29/2020 05:50:00 PM EDT [facility] Y998 Other external cause status Other external cause statu s Diagnosis 12/29/2020 05:50:00 PM EDT [facility] [id number] Contact with powered woodwor lupillo and forming machines, initial encounter Contact with powered woodworking and forming machines, initial encounter Diagnosis 12/29/2020 05:50:00 PM EDT [facility] [id number] Laceration without foreign body of right wrist, initial encounter Laceration without foreign body of right wrist, initial encounter Diagnosis [facility] Acute kidney failure, unspecified Acute kidney f ailure, unspecified Diagnosis 12/22/2020 07:41:00 AM [facility] R18.8 Other ascites OTHER ASCITES Diagnosis 10/18/2020 09:02:00 AM [facility] J90 Pleural effusion, not elsewhere classifi ed PLEURAL EFFUSION, NOT ELSEWHERE CLASSIFIED Diagnosis 10/18/2020 09:02:00 AM [facility] E11.9 Type 2 diabetes mellitus without complic ations TYPE 2 DIABETES MELLITUS WITHOUT COMPLICATIONS Diagnosis 10/18/2020 09:02:00 AM [facility] K43.2 Incisional hernia without obstruction or gangrene INCISIONAL HERNIA WITHOUT OBSTRUCTION OR GANGRENE Diagnosis 10/18/2020 09:02:[address] 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, unspecified D isease of salivary gland, unspecified Diagnosis 10/03/2020 09:23:00 AM [facility] Z8701 Personal history of pneumonia (recurrent ) Personal history of pneumonia (recurrent) Diagnosis 08/31/2020 10:26:00 AM [facility] Z09 Encounter for follow-up exam ination after completed treatment for conditions other than malignant neoplasm Encounter for follow-up examination afte r completed treatment for conditions other than malignant neoplasm Diagnosis 08/31/2020 10:26:00 AM [facility] J189 Pneumonia, unspecified organism Pneumonia, unspecified organism Diagnosis 08/31/2020 10:26:00 AM [facility] I999 Unspecified disorder of circulatory syst em Unspecified disorder of circulatory system Diagnosis 08/31/2020 09:30:00 AM [facility] K4091 Unilateral inguinal hernia, without obst ruction or gangrene, recurrent Unilateral inguinal hernia, without obstruction or gangrene, recurrent Diagnosis 08/31/2020 09:30:00 AM [facility] N183 Chronic kidney disease, stage 3 (moderat e) Chronic kidney disease, stage 3 (moderate) Diagnosis 07/03/2020 10:16:00 AM EDT [facility] I429 Cardiomyopathy, unspecified Cardiomyopathy, unspecifie d Diagnosis 07/03/2020 10:16:00 AM EDT [facility] J96515 Nicotine dependence, cigarettes, uncompl icated Nicotine dependence, cigarettes, uncomplicated Diagnosis 06/25/2020 06:28:00 PM EDT [facility] Z955 Presence of coronary angioplasty implant and graft Presence of coronary angioplasty implant and graft Diagnosis 06/25/2020 06:28:00 PM EDT [facility] Z951 Presence of aortocoronary bypass graft P resence of aortocoronary bypass graft Diagnosis 06/25/2020 06:28:00 PM EDT [facility] I252 Old myocardial infarction Old myocardial infarction Di agnosis 06/25/2020 06:28:00 PM EDT [facility] N18.30 Chronic Kidney Disease Stage 3, unspecif ied Chronic Kidney Disease Stage 3, unspecified Problem 04/03/2021 12:00:00 AM EDT [facility]CW1 ([facility]) N18.3 Chronic kidney disease stage 3 Chronic kidney di sease, stage 3 (moderate) Problem 04/02/2021 12:00:00 AM EDT eCW1 ([facility]) Surgeries/Procedures Procedure Description Date Indications Data Source(s) OFFICE OUTPATIENT VISIT 10 MINUTES 07/02/2021 12:00:00 AM EDT [facility] OFFICE OUTPATIENT VISIT 25 MINUTES 06/29/2021 12:00:00 AM EDT [facility]) I & D Hematoma 06/15/2021 12:00:00 AM EDT [facility] ([facility]) ABDOM PARACENTESIS DX/THER W/O IMAGING GUIDANCE 2020 12:00:00 AM EDT [facility] ([facility]) Electrocardiogram Complete 05/30/2021 12:00:00 AM EDT [facility] ([facility]) OFFICE OUTPATIENT VISIT 25 MINUTES 05/30/2021 12:00:00 AM EDT [facility]) OFFICE OUTPATIENT VISIT 15 MINUTES 05/30/2021 12:00:00 AM EDT [facility] ([facility]) TCM-Mod 04/18/2021 12:00:00 AM EDT [facility] ([facility]) OFFICE OUTPATIENT VISIT 25 MINUTES 04/18/2021 12:00:00 AM EDT [facility] ([facility]) [facility]/DAY 25 MINUTES 04/14/2021 12:00:00 AM EDT [facility] ([facility]) Cardioversion, Elective, External 04/13/2021 12:00:00 AM EDT [facility] ([facility]) Electrocardiogram Interpretation & Report Only 021 12:00:00 AM EDT [facility] ([facility]) [facility]/DAY 25 MINUTES 04/13/2021 12:00:00 AM EDT [facility] ([facility]) INITIAL HOSPITAL CARE/DAY 30 MINUTES 04/12/2021 12:00: 00 AM EDT [facility] ([facility]) Single Lead Implant Cardioverter-Defibrillator 021 12:00:00 AM EDT [facility] ([facility]) TCM-Mod 03/28/2021 12:00:00 AM EDT [facility] ([facility]) OFFICE OUTPATIENT VISIT 15 MINUTES 03/28/2021 12:00:00 AM EDT [facility] ([facility]) [facility]/DAY 25 MINUTES 03/19/2021 12:00:00 AM EDT [facility] ([facility]) [facility]/DAY 25 MINUTES 03/18/2021 12:00:00 AM EDT [facility] ([facility]) Electrocardiogram Interpretation & Report Only 021 12:00:00 AM EDT [facility] ([facility]) INITIAL HOSPITAL CARE/DAY 30 MINUTES 03/16/2021 12:00: 00 AM EDT [facility] ([facility]) REMOVAL IMPLANT DEEP 03/13/2021 12:00:00 AM EDT [facility] ([facility]) RPR RECRT INCAL/VNT HERNIA REDUCIBLE 03/13/2021 12:00: 00 AM EDT [facility] ([facility]) IMPLANT MESH OPN HERNIA RPR/DEBRIDEMENT CLOSURE 2020 12:00:00 AM EDT [facility] ([facility]) Electrocardiogram Complete 02/21/2021 12:00:00 AM EDT [facility] ([facility]) OFFICE OUTPATIENT VISIT 25 MINUTES 02/21/2021 12:00:00 AM EDT [facility] ([facility]) OFFICE OUTPATIENT VISIT 25 MINUTES 2021 12:00:00 AM EDT [facility] ([facility]) GLUC BLD GLUC MNTR DEV CLEARED FDA SPEC HOME USE <td>P OCT GLUCOSE</td><td>Routine</td><td>01/16/2021 8:20 AM EDT</td><td></td><td> </td> 01/16/2021 08:20:00 AM EDT [facility] COLSC FLX PROX SPLENIC FLXR RMVL LES SNARE TQ 01/17/20 12:00:00 AM EDT [facility] ([facility]) Electrocardiogram Complete 01/15/2021 12:00:00 AM EDT [facility] ([facility]) OFFICE OUTPATIENT VISIT 25 MINUTES 01/15/2021 12:00:00 AM EDT [facility] ([facility]) ANOSCOPY DX W/WO COLLJ SPEC BR/WA SPX 01/03/2021 12:00 :00 AM EDT [facility] ([facility]) HOSPITAL DISCHARGE DAY MANAGEMENT 30 MIN/< 12/14/2020 12:00:00 AM EDT [facility] ([facility]) SBSQ HOSPITAL CARE/DAY 25 MINUTES 12/13/2020 12:00:00 AM EDT [facility] ([facility]) INITIAL HOSPITAL CARE/DAY 30 MINUTES 12/12/2020 12:00: 00 AM EDT [facility] ([facility]) Electrocardiogram Complete 12/11/2020 12:00:00 AM EDT [facility] ([facility]) OFFICE OUTPATIENT VISIT 25 MINUTES 12/11/2020 12:00:00 AM EDT [facility] ([facility]) Electrocardiogram Complete 12/11/2020 12:00:00 AM EDT [facility] ([facility]) Cardioversion, Elective, External 11/24/2020 12:00:00 AM EST [facility] ([facility]) Electrocardiogram Interpretation & Report Only 021 12:00:00 AM EST [facility] ([facility]) Electrocardiogram Complete 11/10/2020 12:00:00 AM EST [facility] ([facility]) Dual Lead Implantable Cardioverter-Defibrillator 11/10 12:00:00 AM EST [facility] ([facility]) TCM-Mod 11/10/2020 12:00:00 AM EST [facility] ([facility]) HOSPITAL DISCHARGE DAY MANAGEMENT 30 MIN/< 11/03/2020 12:00:00 AM EST [facility] ([facility]) Electrocardiogram Interpretation & Report Only 021 12:00:00 AM EST [facility] ([facility]) INITIAL HOSPITAL CARE/DAY 30 MINUTES 11/01/2020 12:00: 00 AM EST [facility] ([facility]) SBSQ HOSPITAL CARE/DAY 25 MINUTES 11/01/2020 12:00:00 AM EST [facility] ([facility]) Echocardiography Transesophageal W/Probe Place/Image Acq/Rep ort 10/31/2020 12:00:00 AM EST [facility]) Doppler Echocardiography Complete 10/31/2020 12:00:00 AM EST [facility] ([facility]) Doppler Echocardiography Color Flow Velocity Mapping 10/31/2020 12:00:00 AM EST [facility]) Intracardiac Electrophysiologic 3Dimensional Mapping 10/31/2020 12:00:00 AM EST [facility] Comp Eletro Eval Transseptal Catheterizations Insertion Repo sit 10/31/2020 12:00:00 AM EST [facility]) Add'l Linear/Focal Intrcardiac Catheter Ablation 10/31 12:00:00 AM EST [facility] ([facility]) Intracardiac Echocardiography During Therapeutic/Diagnostic Inter 10/31/2020 12:00:00 AM EST [facility]) OFFICE OUTPATIENT VISIT 25 MINUTES 10/30/2020 12:00:00 AM EST [facility] ([facility]) 32589 10/27/2020 12:00:00 AM EST [facility] DUPLEX SCAN EXTRACRANIAL ART COMPL BI STUDY EXTRACRANIAL BLAISE AT STUDY 10/18/2020 12:00:[address] [facility] CT ABDOMEN & PELVIS W/O CONTRAST MATERIAL CT ABD & PELVIS W/ O CONTRAST 10/18/2020 12:00:00 AM [facility] CREATININE BLOOD ASSAY OF CREATININE 10/18/2020 12:00:00 AM [facility] BASIC METABOLIC PANEL CALCIUM TOTAL METABOLIC PANEL TOTAL CA 10/18/2020 12:00:00 AM [facility] Thromboendarterectomy Carotid/Vertebral/Subclav By Neck Inci josselin 08/23/2020 12:00:00 AM EST [facility]) Electrocardiogram Complete 08/03/2020 12:00:00 AM EST [facility] ([facility]) Dual Lead Implantable Cardioverter-Defibrillator 08/03 12:00:00 AM EST [facility] ([facility]) Results ID Date Data Source [id number] 08/21/2021 12:00:00 PM EST [facility] Name Value Range Interpretation Code Description Data Deanna rce(s) Supporting Document(s) SARS-CoV+SARS-CoV-2 Ag Resp Ql IA.rapid POSITIVE [facility] This lab was ordered by [facility] and reported by [facility]. ID Date Data Source [id number] 08/21/2021 12:00:00 PM [facility] Name Value Range Interpretation Code Description Data Deanna rce(s) Supporting Document(s) SARS RAPID AG [facility] SARS RAPID Ag RASHAWN C33790-8 POSITIVE NORMAL: NEGATIVE Abnormal (applies to non-numer ic results) [facility] REPORT TO DEPARTMENT OF HEAL TH \\BLDo\\IF CLINICALLY INDICATED, IT IS RECOMMENDED THAT NEGATIVE SARS Ag TESTS BE CONFIRMED BY PCR.\\BLDx\\ LIMITATIONS: 1. Positive test results do not rule out co-infections with other pathogens, or differentiate between SARS-CoV and SARS-CoV-2. If differentiation is needed, consult with local public health dept. 2. Negative test results are not intended to rule in other non-SARS viral or bacterial infections. 3. Negative results, from patients with symptom onset beyond five days, should be treated as presumptive and confirmation with a molecular assay, if necessary for patient management may be performed. 4. This test has not been FDA cleared or approved; the test has been authorized by the FDA under an Emergency Use Authorization (EUA) for use by laboratories certified by CLIA that meet the requirements to perform moderate, high or waived complexity tests, This test is authorized for use at the Point of Care (POC), i.e., in patient care settings under a CLIA Certificate of Waiver, Certificate of Compliance, or Certificate of Accredidation. 5. This test has been authorized only for the detection of proteins from SARS-Co-2, not for any other viruses or pathogens. 6. This test is only authorized for the duration of the declaration that circumstances exist justifying the authorization of emergency use of in vitro diagnostic tests for detection and/or diagnosis of COVID-19 under Section 564(b)(1) of the Act, 21 U.S.C. ? 360bbb-3(b unless the authorization is terminated or revoked sooner. ID Date Data Source [id number] 08/18/2021 10:39:00 AM EST [facility] Name Value Range Interpretation Code Description Data Deanna rce(s) Supporting Document(s) SARS-CoV-2 RNA Nph Ql JASMINE+non-probe NOT DETECTED [facility] This lab was ordered by [facility] and reported by [facility]. ID Date Data Source [id number] 08/18/2021 10:39:00 AM EST [facility] Name Value Range Interpretation Code Description Data Deanna rce(s) Supporting Document(s) RESP PROFILE RP2.1 NASAL PCR [facility] \\BLDo\\RESPIRATORY PROFILE NASAL PHARYNGEAL BY PCR\\BLDx\\ \\BLDo\\DETECTED _NONE \\BLDx\\ 08/18/21.1132.JC. \\BLDo\\EQUIVOCAL _NONE \\BLDx\\ 08/18/21.1132.JC. VIRUSES ADENOVIRUS NOT DETECTED NORMAL: NOT DETECTED [facility] CORONAVIRUS 229E NOT DETECTED NORMAL: NOT DETECTED [facility] CORONAVIRUS HKU1 NOT DETECTED NORMAL: NOT DETECTED [facility] CORONAVIRUS NL63 NOT DETECTED NORMAL: NOT DETECTED [facility] CORONAVIRUS OC43 NOT DETECTED NORMAL: NOT DETECTED [facility] 28649-1 NOT DETECTED NORMAL: NOT DETECTED [facility] REPORT TO DEPARTMENT OF HEAL TH HUMAN METAPNEUMO NOT DETECTED NORMAL: NOT DETECTED [facility] HUMAN RHINO/ENTERO NOT DETECTED NORMAL: NOT DETECTED [facility] NOT DETECTEDNOT DETECTEDNOT DETECTEDNOT DETECTED PARAINFLUENZA V3 NOT DETECTED NORMAL: NOT DETECTED [facility] NOT DETECTED RSV NOT DETECTED NORMAL: NOT DETECTED [facility] BACTERIANOT DET ECTEDNOT DETECTEDNOT DETECTEDNOT DETECTED TESTING PERFORMED USING THE [employer] RP2.1 MULTIPLEXED NUCLEIC ACID TEST. THIS TEST HAS NOT BEEN FDA CLEARED OR APPROVED; THIS TEST HAS BEEN AUTHORIZED BY FDA UNDER AN EUA FOR USE BY AUTHORIZED LABORATORIES; THIS TEST HAS BEEN AUTHORIZED ONLY FOR THE DETECTION AND DIFFERENTATION OF NUCLEI ACID OF SARS-CoV-2 FROM MULTIPLE RESPIRATORY VIRAL AND BACTERIAL ORGANIMS; AND THIS TEST IS ONLY AUTHORIZED FOR THE DURATION OF THE DECLARATION THAT CIRCUMSTANCES EXIST JUSTIFYING THE AUTHORIZATION OF EMERGENCY USE OF IN VITRO DIAGNOSTIC TESTS FOR THE DETECTION AND/OR DIAGNOSIS OF COVID-19 UNDER SECTION 564(b)(1) OF THE ACT, 21 U.S.C. 360bbb-3(b) (1), UNLESS THE AUTHORIZATION IS TERMINATED OR REVOKED SOONER. ID Date Data Source [id number] 08/18/2021 10:35:00 AM EST [id number] [place] [address] TELEPHONE RADIOLOGY DEPARTMENT Name: [facility] #: [id number] : PATBDAY Ordering Physician: ELIF DESAI Sex: M Date: 08/18/21 Admission Type: E/R X-ray Number: [id number] Unsigned Transcriptions are preliminary reports and do not represent a Medical or Legal Document \\CTNo\\ EKG TRACING ONLY W/O REPORT [id number] COMPLETE:08/18/21 11:30 BBS 12263 (REASON FOR PROCED: SOB SEE SCANNED EKG \\CTNx\\ Dictating Initials: [facility] Transcribe Date: 08/21/21 09:35 Transcribe Initials: [facility] Name Value Range Interpretation Code Description Data Deanna rce(s) Supporting Document(s) ID Date Data Source [id number] 08/18/2021 10:12:00 AM EST [facility] Name Value Range Interpretation Code Description Data Deanna rce(s) Supporting Document(s) Natriuretic peptide B [Mass/volume] in Serum or Plasma 71476 PG/ ML 0 - 125 Above high normal [facility] Testing methodology changed t o chemiluminscent immunoassay based on [employer] technology. Effective 04/28/18. ID Date Data Source [id number] 08/18/2021 10:12:00 AM EST [facility] Name Value Range Interpretation Code Description Data Deanna rce(s) Supporting Document(s) COMPREHENSIVE CHEM PROFILE [facility] COMPREHENSIVE METABOLIC PANEL Sodium [Moles/volume] in Serum or Plasma 140 mEq/L 136 - 145 [facility] Potassium [Moles/volume] in Serum or Plasma 3.9 mEq/L 3.5 - 5.1 [facility] Chloride [Moles/volume] in Serum or Plasma 105 mEq/L 98 - 107 [facility] Carbon dioxide, total [Moles/volume] in Serum or Plasma 22.0 mEq /L 21.0 - 32.0 [facility] Glucose [Mass/volume] in Serum or Plasma 221 mg/dL 70 - 100 Above high normal [facility] Urea nitrogen [Mass/volume] in Serum or Plasma 37 mg/dL 7 - 18 Above high normal [facility] CREATININE SERUM 1.94 mg/dL 0.70 - 1.30 Above high normal [facility] AGE 66 yrs [facility] HEIGHT 74.00 INCHES [facility] ital eGFR NON-AFR AMR 35 [facility] eGFR AFR AMR 42 [facility] ital BUN/CREAT 19 6 - 25 [employer] l Protein [Mass/volume] in Serum or Plasma 7.2 g/dL 6.0 - 8.3 [facility] Albumin [Mass/volume] in Serum or Plasma 3.1 g/dL 3.8 - 5.4 Below low normal [facility] GLOBULIN 4.1 g/dL 2.0 - 4.0 Above high normal [facility] A/G RATIO 0.8 0.8 - 2.0 [facility] Calcium [Mass/volume] in Serum or Plasma 8.2 mg/dL 8.8 - 10.2 Below low normal [facility] Bilirubin.total [Mass/volume] in Serum or Plasma 0.6 mg/dL 0.2 - 1.0 [facility] Bilirubin.direct [Mass/volume] in Serum or Plasma 0.2 mg/dL 0.0 - 0. 2 [facility] INDIRECT BILI 0.4 mg/dL 0.0 - 1.1 [facility] pital ALK PHOSPHATASE 77 U/L 40 - 129 [facility] ospital Aspartate aminotransferase [Enzymatic ac tivity/volume] in Serum or Plasma by With P-5'-P 15 IU/L 7 - 37 [facility] Alanine aminotransferase [Enzymatic acti vity/volume] in Serum or Plasma by With P-5'-P 23 IU/L 12 - 78 [facility] ANION GAP 13 7 - 15 [employer] l Estimated GFR referenc e range: >60ml/min/1.73m >18 years: Calculated using IDMS traceable Study Equation <18 years: Calculated using IDMS tracable Bedside Schartz Equation ID Date Data Source [id number] 08/18/2021 10:12:00 AM EST [facility] Name Value Range Interpretation Code Description Data Deanna rce(s) Supporting Document(s) 36526-8 29.8 pg/mL 4.0 - 76.2 [facility] \\BLDo\\TROPONIN I I NTERPRETATION:\\BLDx\\ FEMALE: <= 51.4 pg/mL NORMAL MALE: <= 76.2 pg/mL NORMAL In addition to an elevated troponin, WHO recommends additional criterion for confirmation of acute myocardial infarction; 1) Electrochanges consistent with infarction or 2) chest disc omfort of significant duration. Reference range and units updated for new HIGH SENSITIVE TROPONIN LOCI method. Effective 07/19/21. ID Date Data Source [id number] 08/18/2021 10:12:00 AM EST [facility] Name Value Range Interpretation Code Description Data Deanna e(s) Supporting Document(s) CBC [facility] COMPLETE BLOOD COUNT Leukocytes [#/volume] in Blood by Automated count 5.7 K/uL 4.0 - 10 .0 [facility] Erythrocytes [#/volume] in Blood by Automated count 3.18 M/uL 4.30 - 6.10 Below low normal [facility] Hemoglobin [Mass/volume] in Blood 9.7 g/dL 13.5 - 17.5 Below low no rmal [facility] Hematocrit [Volume Fraction] of Blood by Automated count 30.0 % 39.0 - 50.0 Below low normal [facility] Erythrocyte mean corpuscular volume [Entitic volume] by Auto mated count 94.3 fL 80.0 - 96.0 [facility] Erythrocyte mean corpuscular hemoglobin [Entitic mass] by Automated count 30.5 pg 26.0 - 34.0 [facility] Erythrocyte mean corpuscular hemoglobin concentration [Mass/volume] by Automated count 32.3 g/dL 32.0 - 36.0 [facility] Erythrocyte distribution width [Ratio] by Automated count 15.3 % 11.6 - 14.8 Above high normal [facility] Platelets [#/volume] in Blood by Automated count 152 K/uL 150 - 450 [facility] Platelet mean volume [Entitic volume] in Blood by Automated count 9.5 fL 7.1 - 10.4 [facility] Neutrophils [#/volume] in Blood by Automated count 4.23 K/uL 1.70 - 7.70 [facility] Lymphocytes [#/volume] in Blood by Automated count 0.88 K/uL 1.50 - 6.00 Below low normal [facility] Monocytes [#/volume] in Blood by Automated count 0.41 K/uL 0.00 - 1. 00 [facility] Eosinophils [#/volume] in Blood by Automated count 0.11 K/uL 0.03 - 0.48 [facility] Basophils [#/volume] in Blood by Automated count 0.02 K/uL 0.01 - 0. 08 [facility] 0.01 Urinalysis macro (dipstick) panel - Urine 0.000 10^3/uL 0.000 - 0.012 [facility] Neutrophils/100 leukocytes in Blood by Automated count 74.8 % 42. 0 - 75.0 [facility] Lymphocytes/100 leukocytes in Blood by Automated count 15.5 % 15. 0 - 41.0 [facility] Monocytes/100 leukocytes in Blood by Automated count 7.2 % 0.0 - 12.0 [facility] Eosinophils/100 leukocytes in Blood by Automated count 1.9 % 0.0 - 7.0 [facility] 0.40.20 NRBC 0.0 % [facility] l MANUAL DIFF NOT INDICATED [facility] RBC MORPH NOT INDICATED [facility] pital ID Date Data Source [id number] 07/24/2021 12:37:51 PM EDT [place] [id number] TELEPHONE RADIOLOGY DEPARTMENT Name: WILSON [facility] #: [id number] : 1955 Ordering Physician: NOHEMI Sex: M Date: 07/23/21 Admission Type: O/P X-ray Number: [id number] Unsigned Transcriptions are preliminary reports and do not represent a Medical or Legal Document CT LOW-DOSE LUNG CANCER CASSANDRA [id number] COMPLETE:07/23/21 12:38 LEI 81800 (REASON FOR CHEST: COPD Patient weight: [address] examination of the chest acquired. Axial, coronal and sagittal images evaluated. FINDINGS: The neck base is clear. The lungs demonstrate mild chronic interstitial changes especially in the right middle lobe. No suspicious masses or nodules are visualized. The heart is normal in size. There's evidence of prior coronary artery stenting and coronary artery calcifications. No lymphadenopathy is appreciated. The visualized upper abdomen demonstrates no acute abnormality. There is no acute osseous abnormality. IMPRESSION: Lung-RADS category 1. No suspicious mass or nodules. [place] [id number] [place] [address] TELEPHONE RADIOLOGY DEPARTMENT Name: [facility] #: [id number] : 1955 Ordering Physician: NOHEMI Sex: M Date: 07/23/21 Admission Type: O/P X-ray Number: [id number] Unsigned Transcriptions are preliminary reports and do not represent a Medical or Legal Document 2. Changes of COPD are noted. Recommend annual low dose CT scan of the chest. While performing the above CT exam, Radiation dose reduction was accomplished utilizing automated exposure control, adjusting of the mA and kV based on the patient's body size and/or the use of imperative reconstructive techniques. CT dose in mGy*CM: 119.6 Electronically Reviewed and Signed By KI GILLIS MD, MD 07/24/21 12:35 Dictating Initials: [place] Transcribed Date: 07/23/21 17:22 Transcribe I nitials: Name Value Range Interpretation Code Description Data Deanna rce(s) Supporting Document(s) ID Date Data Source [id number] 07/23/2021 09:35:00 AM EDT [facility] Value Range Interpretation Code Description Data Deanna rce(s) Supporting Document(s) 25-OH VITAMIN D 28.5 ng/mL 30.0 - 100 Below low normal [facility] Deficient < 20 ng/mL Insufficient 20 - < 30 ng/mL Sufficient 30 - 100 ng/mL 25-OH vitamin D reference values based on the Clinical Guidelines Subcommittee of the Endocrine Society Task Force. Biotin can interfere with 25-OH Vitamin D results if taken 48 hours prior to specimen collection. ID Date Data Source [id number] 07/23/2021 09:35:00 AM EDT [facility] Value Range Interpretation Code Description Data Deanna rce(s) Supporting Document(s) Natriuretic peptide B [Mass/volume] in Serum or Plasma 2222 PG/M L 0 - 125 Above high normal [facility] Testing methodology changed t o chemiluminscent immunoassay based on Amarin technology. Effective 04/28/18. ID Date Data Source [id number] 07/23/2021 09:35:00 AM EDT [facility] Value Range Interpretation Code Description Data Deanna rce(s) Supporting Document(s) T4 FREE 1.06 ng/dL 0.76 - 1.46 [facility] ID Date Data Source [id number] 07/23/2021 09:35:00 AM EDT [facility] Value Range Interpretation Code Description Data Deanna rce(s) Supporting Document(s) TSH 7.73 uIU/mL 0.36 - 3.74 Above high normal [facility] ID Date Data Source [id number] 07/23/2021 09:35:00 AM EDT [facility] Name Value Range Interpretation Code Description Data Deanna rce(s) Supporting Document(s) COMPREHENSIVE CHEM PROFILE i [facility] COMPREHENSIVE METABOLIC PANEL Sodium [Moles/volume] in Serum or Plasma 138 mEq/L 136 - 145 [facility] Potassium [Moles/volume] in Serum or Plasma 4.6 mEq/L 3.5 - 5.1 [facility] Chloride [Moles/volume] in Serum or Plasma 106 mEq/L 98 - 107 [facility] Carbon dioxide, total [Moles/volume] in Serum or Plasma 20.6 mEq /L 21.0 - 32.0 Below low normal [facility] Glucose [Mass/volume] in Serum or Plasma 200 mg/dL 70 - 100 Above high normal [facility] Urea nitrogen [Mass/volume] in Serum or Plasma 70 mg/dL 7 - 18 Above upper panic limits [facility] CALLED TO: DR YAP @ 1300 [facility] REP/VERIFIED REPEATED TO CONFIRM [facility] READ BACK YES [facility] l CREATININE SERUM 2.25 mg/dL 0.70 - 1.30 Above high normal [facility] AGE 66 yrs [facility] l HEIGHT R [facility] eGFR NON-AFR AMR 29 [facility] eGFR AFR AMR 35 [facility] ital BUN/CREAT 31 6 - 25 Above high normal [facility] Protein [Mass/volume] in Serum or Plasma 8.5 g/dL 6.0 - 8.3 Above high normal [facility] Albumin [Mass/volume] in Serum or Plasma 3.6 g/dL 3.8 - 5.4 Below low normal [facility] GLOBULIN 4.9 g/dL 2.0 - 4.0 Above high normal [facility] A/G RATIO 0.7 0.8 - 2.0 Below low normal [facility] Calcium [Mass/volume] in Serum or Plasma 8.9 mg/dL 8.8 - 10.2 [facility] Bilirubin.total [Mass/volume] in Serum or Plasma 0.4 mg/dL 0.2 - 1.0 [facility] Bilirubin.direct [Mass/volume] in Serum or Plasma 0.1 mg/dL 0.0 - 0. 2 [facility] INDIRECT BILI 0.3 mg/dL 0.0 - 1.1 [facility] pital ALK PHOSPHATASE 83 U/L 40 - 129 [facility] ospital Aspartate aminotransferase [Enzymatic ac tivity/volume] in Serum or Plasma by With P-5'-P 22 IU/L 7 - 37 [facility] Alanine aminotransferase [Enzymatic acti vity/volume] in Serum or Plasma by With P-5'-P 24 IU/L 12 - 78 [facility] ANION GAP 11 7 - 15 [facility] Estimated GFR referenc e range: >60ml/min/1.73m >18 years: Calculated using IDMS traceable Study Equation <18 years: Calculated using IDMS tracable Bedside Schartz Equation ID Date Data Source [id number] 07/23/2021 09:35:00 AM EDT [facility] Name Value Range Interpretation Code Description Data Deanna rce(s) Supporting Document(s) CBC [facility] COMPLETE BLOOD COUNT Leukocytes [#/volume] in Blood by Automated count 4.8 K/uL 4.0 - 10 .0 [facility] Erythrocytes [#/volume] in Blood by Automated count 4.00 M/uL 4.30 - 6.10 Below low normal [facility] Hemoglobin [Mass/volume] in Blood 12.1 g/dL 13.5 - 17.5 Below low no rmal [facility] Hematocrit [Volume Fraction] of Blood by Automated count 37.4 % 39.0 - 50.0 Below low normal [facility] Erythrocyte mean corpuscular volume [Entitic volume] by Auto mated count 93.5 fL 80.0 - 96.0 [facility] Erythrocyte mean corpuscular hemoglobin [Entitic mass] by Automated count 30.3 pg 26.0 - 34.0 [facility] Erythrocyte mean corpuscular hemoglobin concentration [Mass/volume] by Automated count 32.4 g/dL 32.0 - 36.0 [facility] Erythrocyte distribution width [Ratio] by Automated count 15.9 % 11.6 - 14.8 Above high normal [facility] Platelets [#/volume] in Blood by Automated count 160 K/uL 150 - 450 [facility] Platelet mean volume [Entitic volume] in Blood by Automated count 10.0 fL 7.1 - 10.4 [facility] Neutrophils [#/volume] in Blood by Automated count 2.60 K/uL 1.70 - 7.70 [facility] Lymphocytes [#/volume] in Blood by Automated count 1.45 K/uL 1.50 - 6.00 Below low normal [facility] Monocytes [#/volume] in Blood by Automated count 0.45 K/uL 0.00 - 1. 00 [facility] Eosinophils [#/volume] in Blood by Automated count 0.25 K/uL 0.03 - 0.48 [facility] Basophils [#/volume] in Blood by Automated count 0.02 K/uL 0.01 - 0. 08 [facility] 0.01 Urinalysis macro (dipstick) panel - Urine 0.000 10^3/uL 0.000 - 0.012 [facility] Neutrophils/100 leukocytes in Blood by Automated count 54.5 % 42. 0 - 75.0 [facility] Lymphocytes/100 leukocytes in Blood by Automated count 30.3 % 15. 0 - 41.0 [facility] Monocytes/100 leukocytes in Blood by Automated count 9.4 % 0.0 - 12.0 [facility] Eosinophils/100 leukocytes in Blood by Automated count 5.2 % 0.0 - 7.0 [facility] 0.40.20 NRBC 0.0 % [facility] NOT INDICATED [facility] RBC MORPH NOT INDICATED [facility] pital ID Date Data Source [id number] 07/17/2021 04:54:[address] [facility] [address] [place] [address] TELEPHONE RADIOLOGY DEPARTMENT Name: [facility] #: [id number] : 1955 Ordering Physician: CATHERINE GREENFIELD Sex: M Date: 07/11/21 Admission Type: O/P X-ray Number: [id number] Unsigned Transcriptions are preliminary reports and do not represent a Medical or Legal Document CT HEAD W/O CONTRAST [id number] COMPLETE:07/11/21 13:26 BBS 26474 (REASON FOR TEST: ATAXIA Patient weight: [address] examination of the head acquired. Axial, coronal and sagittal images evaluated. Prior examination: none available. FINDINGS: There is no acute intracranial pathology. There is no positive mass effect or shift of the midline structures. Lateral, centralized ventricles are prominent and in normal position. There is appears to be a little atrophy associated with ischemic disease. There are no extra-axial fluid collections. Evaluation of the visualized paranasal sinuses demonstrates mucosal thickening and normal mastoid air cells. IMPRESSION: No evidence of acute intracranial pathology. While performing the above CT exam, Radiation dose reduction was accomplished utilizing automated exposure control, adjusting of the [place] [id number] TELEPHONE RADIOLOGY DEPARTMENT Name: [facility] #: [id number] : 1955 Ordering Physician: CATHERINE GREENFIELD Sex: M Date: 07/11/21 Admission Type: O/P X-ray Number: [id number] Unsigned Transcriptions are preliminary reports and do not represent a Medical or Legal Document and kV based on the patient's body size and/or the use of imperative reconstructive techniques. CT dose in mGy*CM: 869.7 Electronically Reviewed and Signed By CHU PAYTON MD, MD 07/17/21 16:54 Dictating Initials: [place] Transcribed Date: 07/13/21 10:46 Transcribe Initials: BBS Name Value Range Interpretation Code Description Data Deanna rce(s) Supporting Document(s) ID Date Data Source [id number] 07/04/2021 12:00:00 PM EDT [facility] Value Range Interpretation Code Description Data Deanna rce(s) Supporting Document(s) 25-OH VITAMIN D 26.6 ng/mL 30.0 - 100 Below low normal [facility] Deficient < 20 ng/mL Insufficient 20 - < 30 ng/mL Sufficient 30 - 100 ng/mL 25-OH vitamin D reference values based on the Clinical Guidelines Subcommittee of the Endocrine Society Task Force. Biotin can interfere with 25-OH Vitamin D results if taken 48 hours prior to specimen collection. ID Date Data Source [id number] 07/04/2021 12:00:00 PM EDT [facility] Value Range Interpretation Code Description Data Deanna rce(s) Supporting Document(s) Natriuretic peptide B [Mass/volume] in Serum or Plasma 5502 PG/M L 0 - 125 Above high normal [facility] Testing methodology changed t o chemiluminscent immunoassay based on Amarin technology. Effective 04/28/18. ID Date Data Source [id number] 07/04/2021 12:00:00 PM EDT [facility] Value Range Interpretation Code Description Data Deanna rce(s) Supporting Document(s) Phosphate [Mass/volume] in Serum or Plasma 3.5 mg/dL 2.5 - 4.9 [facility] ID Date Data Source [id number] 07/04/2021 12:00:00 PM EDT [facility] Value Range Interpretation Code Description Data Deanna rce(s) Supporting Document(s) Magnesium [Mass/volume] in Serum or Plasma 2.1 mg/dL 1.8 - 2.4 [facility] ID Date Data Source [id number] 07/04/2021 12:00:00 PM EDT [facility] Name Value Range Interpretation Code Description Data Deanna rce(s) Supporting Document(s) C reactive protein [Mass/volume] in Serum or Plasma 80.6 mg/L 0.0 - 9.0 Above high normal [facility] Reference range updated to ma nufacturer recommended. Effective 05/20/18. ID Date Data Source [id number] 07/04/2021 12:00:00 PM EDT [facility] Name Value Range Interpretation Code Description Data Deanna rce(s) Supporting Document(s) T4 FREE 1.23 ng/dL 0.76 - 1.46 [facility] ital ID Date Data Source [id number] 07/04/2021 12:00:00 PM EDT [facility] Name Value Range Interpretation Code Description Data Deanna rce(s) Supporting Document(s) TSH 5.77 uIU/mL 0.36 - 3.74 Above high normal [facility] ID Date Data Source [id number] 07/04/2021 12:00:00 PM EDT [facility] Name Value Range Interpretation Code Description Data Deanna rce(s) Supporting Document(s) COMPREHENSIVE CHEM PROFILE [facility] COMPREHENSIVE METABOLIC PANEL Sodium [Moles/volume] in Serum or Plasma 139 mEq/L 136 - 145 [facility] Potassium [Moles/volume] in Serum or Plasma 4.6 mEq/L 3.5 - 5.1 [facility] Chloride [Moles/volume] in Serum or Plasma 104 mEq/L 98 - 107 [facility] Carbon dioxide, total [Moles/volume] in Serum or Plasma 22.8 mEq /L 21.0 - 32.0 [facility] Glucose [Mass/volume] in Serum or Plasma 216 mg/dL 70 - 100 Above high normal [facility] Urea nitrogen [Mass/volume] in Serum or Plasma 47 mg/dL 7 - 18 Above high normal [facility] CREATININE SERUM 1.85 mg/dL 0.70 - 1.30 Above high normal [facility] AGE 66 yrs [facility] l HEIGHT R [facility] eGFR NON-AFR AMR 37 [facility] eGFR AFR AMR 44 [facility] BUN/CREAT 25 6 - 25 [facility] Protein [Mass/volume] in Serum or Plasma 7.6 g/dL 6.0 - 8.3 [facility] Albumin [Mass/volume] in Serum or Plasma 3.0 g/dL 3.8 - 5.4 Below low normal [facility] GLOBULIN 4.6 g/dL 2.0 - 4.0 Above high normal [facility] A/G RATIO 0.7 0.8 - 2.0 Below low normal [facility] Calcium [Mass/volume] in Serum or Plasma 8.4 mg/dL 8.8 - 10.2 Below low normal [facility] Bilirubin.total [Mass/volume] in Serum or Plasma 0.5 mg/dL 0.2 - 1.0 [facility] Bilirubin.direct [Mass/volume] in Serum or Plasma 0.1 mg/dL 0.0 - 0. 2 [facility] INDIRECT BILI 0.4 mg/dL 0.0 - 1.1 [facility] pital ALK PHOSPHATASE 74 U/L 40 - 129 [facility] ospital Aspartate aminotransferase [Enzymatic ac tivity/volume] in Serum or Plasma by With P-5'-P 12 IU/L 7 - 37 [facility] Alanine aminotransferase [Enzymatic acti vity/volume] in Serum or Plasma by With P-5'-P 23 IU/L 12 - 78 [facility] ANION GAP 12 7 - 15 [facility] Estimated GFR referenc e range: >60ml/min/1.73m >18 years: Calculated using IDID traceable Study Equation <18 years: Calculated using [facility] tracable Bedside Schartz Equation ID Date Data Source [id number] 07/04/2021 12:00:00 PM EDT [facility] Name Value Range Interpretation Code Description Data Deanna rce(s) Supporting Document(s) SED RATE 67 mm/HR 0 - 20 Above high normal [facility] ID Date Data Source [id number] 07/04/2021 12:00:00 PM EDT [facility] Name Value Range Interpretation Code Description Data Deanna rce(s) Supporting Document(s) CBC [facility] COMPLETE BLOOD COUNT Leukocytes [#/volume] in Blood by Automated count 8.3 K/uL 4.0 - 10 .0 [facility] Erythrocytes [#/volume] in Blood by Automated count 3.56 M/uL 4.30 - 6.10 Below low normal [facility] Hemoglobin [Mass/volume] in Blood 10.6 g/dL 13.5 - 17.5 Below low no rmal [facility] Hematocrit [Volume Fraction] of Blood by Automated count 32.6 % 39.0 - 50.0 Below low normal [facility] Erythrocyte mean corpuscular volume [Entitic volume] by Auto mated count 91.6 fL 80.0 - 96.0 [facility] Erythrocyte mean corpuscular hemoglobin [Entitic mass] by Automated count 29.8 pg 26.0 - 34.0 [facility] Erythrocyte mean corpuscular hemoglobin concentration [Mass/volume] by Automated count 32.5 g/dL 32.0 - 36.0 [facility] Erythrocyte distribution width [Ratio] by Automated count 15.3 % 11.6 - 14.8 Above high normal [facility] Platelets [#/volume] in Blood by Automated count 221 K/uL 150 - 450 [facility] Platelet mean volume [Entitic volume] in Blood by Automated count 9.8 fL 7.1 - 10.4 [facility] Neutrophils [#/volume] in Blood by Automated count 6.13 K/uL 1.70 - 7.70 [facility] Lymphocytes [#/volume] in Blood by Automated count 1.19 K/uL 1.50 - 6.00 Below low normal [facility] Monocytes [#/volume] in Blood by Automated count 0.75 K/uL 0.00 - 1. 00 [facility] Eosinophils [#/volume] in Blood by Automated count 0.17 K/uL 0.03 - 0.48 [facility] Basophils [#/volume] in Blood by Automated count 0.03 K/uL 0.01 - 0. 08 [facility] 0.03 Urinalysis macro (dipstick) panel - Urine 0.000 10^3/uL 0.000 - 0.012 [facility] Neutrophils/100 leukocytes in Blood by Automated count 73.9 % 42. 0 - 75.0 [facility] Lymphocytes/100 leukocytes in Blood by Automated count 14.3 % 15.0 - 41.0 Below low normal [facility] Monocytes/100 leukocytes in Blood by Automated count 9.0 % 0.0 - 12.0 [facility] Eosinophils/100 leukocytes in Blood by Automated count 2.0 % 0.0 - 7.0 [facility] 0.40.40 NRBC 0.0 % [facility] MANUAL DIFF NOT INDICATED [facility] RBC MORPH NOT INDICATED [facility] p[facility] ID Date Data Source [id number] 06/29/2021 02:31:00 PM EDT [facility] ([facility]) Name Value Range Interpretation Code Description Data Deanna rce(s) Supporting Document(s) Magnesium [Mass/volume] in Serum or Plasma 1.7 mg/dL 1.7-2.4 [facility] ([facility]) Venipuncture Laboratory test result [facility] ([facility]) Troponin I.cardiac [Mass/volume] in Serum or Plasma 0.020 ng/mL 0-0.0 47 [facility] ([facility]) Natriuretic peptide B [Mass/volume] in Serum or Plasma 705.8 pg/ mL 0-100 Above high normal [facility] ([facility]) ID Date Data Source [id number] 06/29/2021 02:31:00 PM EDT [facility] ([facility]) Name Value Range Interpretation Code Description Data Deanna rce(s) Supporting Document(s) Glucose [Mass/volume] in Serum or Plasma 293 mg/dL 74-106 Above high normal [facility] ([facility]) [place] [employer] (ADA) Recommended Range is 65-99 mg/dL Urea nitrogen [Moles/volume] in Serum or Plasma 54 mg/dL 6-20 Record coming over is a correction and thus replaces a final result [facility] ([facility]) Results Confirmed by Repeat Analysis. Labprint and transmitted [id number] [address] 06/29/2021 Sodium [Moles/volume] in Serum or Plasma 138 mmol/L 136-145 [facility] ([facility]) Creatinine [Mass/volume] in Serum or Plasma 1.9 mg/dL 0.5-1.3 Above high normal [facility] ([facility]) Potassium [Moles/volume] in Serum or Plasma 3.8 mmol/L 3.5-5.3 [facility] ([facility]) Carbon dioxide, total [Moles/volume] in Serum or Plasma 19 meq/L 20-31 Below low normal [facility] ([facility]) Chloride [Moles/volume] in Serum or Plasma 109 mmol/L 98-107 Above high normal [facility] ([facility]) Anion Gap 10 mmol/L 7-16 [facility] ([facility]) eGFR-male 36 mL/m/1.73m [facility] ([facility]) Calcium [Mass/volume] in Serum or Plasma 8.7 mg/dL 8.9-10.5 Below low normal [facility] ([facility]) eGFR-Aa male 43 mL/m/1.73m [facility] <content>Normal Kidney Function or Mild Disease GFR >59 mL/min/1.73m2</content>
<content>Chronic Kidney Disease GFR 15-59 mL/min/1.73m2</content>
<content>Renal Failure GFR <15 mL/min/1.73m2</content>
<content></content> ID Date Data Source [id number] 06/29/2021 02:31:00 PM EDT [facility] ([facility] Name Value Range Interpretation Code Description Data Deanna rce(s) Supporting Document(s) Erythrocytes [#/volume] in Blood by Automated count 3.63 x10E6/u L 4.4-6.0 Below low normal [facility] ([facility]) WBC. 6.68 x10E3/uL 4.2-12.0 [facility] ([facility]) Labprint and transmitted 3:44pm 06/29/20 21 ak Hemoglobin [Mass/volume] in Blood 10.8 g/dL 13.8-18.0 Below low nor mal [facility] ([facility]) Hematocrit [Volume Fraction] of Blood by Automated count 34.4 % 39-52 Below low normal [facility] ([facility]) MCV 94.9 fL 80-98 [facility]) MCHC 31.4 g/dL 32-36 Below low normal [facility] ([facility]) MCH 29.8 pg 27-33 [facility] ([facility]) RDW 16.4 % 11.2-15.2 Above high normal [facility]) Platelets [#/volume] in Blood by Automated count 155 x10E3/uL 135-420 [facility] ([facility]) MPV 8.0 fL 7.0-12.3 [facility] ([facility]) % Keesha 82.3 % 41.0-80.0 Above high normal [facility] ([facility]) %[place] 3.3 % 2.0-13.0 [facility] ([facility]) Eosinophils [#/volume] in Blood by Automated count 2.0 % 0.0-8.0 [facility] ([facility]) %Lym 12.3 % 10.0-45.2 [facility] ([facility]) %Baso 0.1 % 0.0-3.0 [facility] ([facility]) Lymp 0.8 x10E3/uL 0.6-3.1 [facility] Neut 5.5 x10E3/uL 2.0-8.1 [facility]) [place] 0.2 x10E3/uL 0.0-1.0 [facility] Eos 0.1 x10E3/uL 0.0-0.6 [facility] Baso 0.0 x10E3/uL 0.0-0.2 [facility]) ID Date Data Source [id number] 06/20/2021 08:02:00 AM EDT [facility] Value Range Interpretation Code Description Data Deanna rce(s) Supporting Document(s) Natriuretic peptide B [Mass/volume] in Serum or Plasma 5388 PG/M L 0 - 125 Above high normal [facility] Testing methodology changed t o chemiluminscent immunoassay based on Amarin technology. Effective 04/28/18. ID Date Data Source [id number] 06/20/2021 08:02:00 AM EDT [facility] Value Range Interpretation Code Description Data Deanna rce(s) Supporting Document(s) BASIC METABOLIC PANEL [facility] BASIC METABOLIC PANEL Sodium [Moles/volume] in Serum or Plasma 143 mEq/L 136 - 145 [facility] Potassium [Moles/volume] in Serum or Plasma 4.7 mEq/L 3.5 - 5.1 [facility] Chloride [Moles/volume] in Serum or Plasma 109 mEq/L 98 - 107 Above high normal [facility] Carbon dioxide, total [Moles/volume] in Serum or Plasma 24.8 mEq /L 21.0 - 32.0 [facility] Glucose [Mass/volume] in Serum or Plasma 223 mg/dL 70 - 100 Above high normal [facility] Urea nitrogen [Mass/volume] in Serum or Plasma 44 mg/dL 7 - 18 Above high normal [facility] CREATININE SERUM 1.72 mg/dL 0.70 - 1.30 Above high normal [facility] AGE 66 yrs [facility] l eGFR NON-AFR AMR 40 [facility] eGFR AFR AMR 48 [facility] ital BUN/CREAT 26 6 - 25 Above high normal [facility] Calcium [Mass/volume] in Serum or Plasma 8.3 mg/dL 8.8 - 10.2 Below low normal [facility] ANION GAP 9 7 - 15 [facility] Estimated GFR reference r sandra: > 60 mL/min/1.73m >18 years: Calculated using IDMS traceable MDRD Study Equation <18 years: Calculated using IDMS traceable Bedside Wharton Equation ID Date Data Source [id number] 06/20/2021 08:02:00 AM EDT [facility] Name Value Range Interpretation Code Description Data Deanna rce(s) Supporting Document(s) CBC [facility] COMPLETE BLOOD COUNT Leukocytes [#/volume] in Blood by Automated count 4.6 K/uL 4.0 - 10 .0 [facility] Erythrocytes [#/volume] in Blood by Automated count 3.62 M/uL 4.30 - 6.10 Below low normal [facility] Hemoglobin [Mass/volume] in Blood 10.8 g/dL 13.5 - 17.5 Below low no rmal [facility] Hematocrit [Volume Fraction] of Blood by Automated count 34.3 % 39.0 - 50.0 Below low normal [facility] Erythrocyte mean corpuscular volume [Entitic volume] by Auto mated count 94.8 fL 80.0 - 96.0 [facility] Erythrocyte mean corpuscular hemoglobin [Entitic mass] by Automated count 29.8 pg 26.0 - 34.0 [facility] Erythrocyte mean corpuscular hemoglobin concentration [Mass/volume] by Automated count 31.5 g/dL 32.0 - 36.0 Below low normal [facility] Erythrocyte distribution width [Ratio] by Automated count 15.9 % 11.6 - 14.8 Above high normal [facility] Platelets [#/volume] in Blood by Automated count 148 K/uL 150 - 450 Below low normal [facility] Platelet mean volume [Entitic volume] in Blood by Automated count 9.8 fL 7.1 - 10.4 [facility] Neutrophils [#/volume] in Blood by Automated count 3.06 K/uL 1.70 - 7.70 [facility] Lymphocytes [#/volume] in Blood by Automated count 1.08 K/uL 1.50 - 6.00 Below low normal [facility] Monocytes [#/volume] in Blood by Automated count 0.41 K/uL 0.00 - 1. 00 [facility] Eosinophils [#/volume] in Blood by Automated count 0.05 K/uL 0.03 - 0.48 [facility] Basophils [#/volume] in Blood by Automated count 0.02 K/uL 0.01 - 0. 08 [facility] 0.02 Urinalysis macro (dipstick) panel - Urine 0.000 10^3/uL 0.000 - 0.012 [facility] Neutrophils/100 leukocytes in Blood by Automated count 66.0 % 42. 0 - 75.0 [facility] Lymphocytes/100 leukocytes in Blood by Automated count 23.3 % 15. 0 - 41.0 [facility] Monocytes/100 leukocytes in Blood by Automated count 8.8 % 0.0 - 12.0 [facility] Eosinophils/100 leukocytes in Blood by Automated count 1.1 % 0.0 - 7.0 [facility] 0.40.40 NRBC 0.0 % [facility] l MANUAL DIFF NOT INDICATED [facility] RBC MORPH NOT INDICATED [facility] ID Date Data Source [id number] 06/18/2021 01:57:00 PM EDT [place] [address] [place] [place], [place] [address]RUEVMVA NAME: JAMAR WILSONDATE OF : 4REPORT: OPERATIONPATIENT NUMBER: [id number] STATUS: SDMEDICAL RECORD NUMBER: [id number] OF ADMISSION: 06/15/2021ATE OF DISCHARGE:DATE OF PROCEDURE: 06/15/2021REOPERATIVE DIAGNOSIS: Abdominal wall fluid collection post herniarepair.POSTOPERATIVE DIAGNOSIS: Abdominal wall fluid collection post herniarepair.PROCEDURE: Drainage of abdominal fluid collection and placement of jerman.SURGEON: Abraham Padilla MDANESTHESIA: MAC anesthesia.INDICATIONS: A 66-year-old male who is 3 months from abdominal wallreconstruction who has had persistent fluid collection. Recent ultrasoundsuggestive of a subcutaneous fluid collection.OPERATIVE FINDING: Subcutaneous as well as subfascial fluid collection.OPERATIVE PROCEDURE: The patient was taken to the operating room, placedsupine on the operating room table. The patient's abdomen was sha margot,prepped with chlorhexidine scrub and draped in the usual sterile manner. O80-uamzs long needle was used to aspirate the fluid which appeared to be inthe anterior midline. A 3-cm incision was made over previous drain tract. The incision was carried down through the subcutaneous tissue. The needlewas advanced and multiple pockets were obtained and about 200 cc of fluidwas ultimately drained. Examining finger was placed in the subcutaneoustissue. No definite discrete pocket was identified. A 10-mm Kojo-Prattdrain was brought out through this incision and secured to the skin with2-0 nylon sutures. Dressing was applied. The patient tolerated theprocedure well, was taken to the recovery room in stable condition.DICTATED BY: FRANCO Cornejoictated: 06/15/2021 10:12DT: 06/15/2021 10:15Job #: [id number]: [facility] computer generated reports are not confirmed orauthenticated unless they are signed by the providerElectronically Authenticated by:ABRAHAM PADILLA MD On 06/18/2021 01:57 PM EDT Name Value Range Interpretation Code Description Data [facility] rce(s) Supporting Document(s) ID Date Data Source [id number] 06/15/2021 08:26:56 AM EDT [facility] Name Value Range Interpretation Code Description Data [facility] Supporting Document(s) POC GLUCOSE 147 mg/dL (70-99) H [facility] PERFORMED BY CLINICAL STAFF ID Date Data Source [id number] 06/19/2021 05:58:06 PM EDT [place], [place] [address]Tel# MISCELLANEOUS CYTOLOGY REPORTAccession #: [id number] of Specimen(s): A: Abdominal Wall FluidClinical Diagnosis and History: Abdominal wall seromaGross DescriptionAbdominal Wall Fluid: 70cc opaque red fluid Final DiagnosisSpecimen AdequacySatisfactoryFinal DiagnosisABDOMINAL WALL FLUID: NEGATIVE FOR MALIGNANCYHistiocytes and lymphocytes. Immunostains performed on the cell block show many histiocytes positivefor CD68 and negative MOC 31 immunostain.Reported: 06/19/2021 17:56Electronically Signed Out By Marcella Hampton MD[facility] [address] [address]Hntebjexhwerfbrb: Nguyen Dove RI(ASCP)tbsProcessed and screened at [facility], [address] [place] [address], [id number].This report may include immunohistochemical or in- situ hybridizationresults. Testing was developed and the performance characteristicsdetermined by [facility], [facility], as required byCLIA '88. The FDA has determined that approval for specific use is notnecessary for clinical use. The quality of Hematoxylin and Eosin stainsand as applicable, for all immunohistochemical and/or special stains,including positive and negative controls, were reviewed and consideredappropriate. ICD Code: R19.00 CPT Code: A: 77392U, 31355T, 55756a, 91246 Name Value Range Interpretation Code Description Data Deanna rce(s) Supporting Document(s) ID Date Data Source [id number] 06/11/2021 03:28:00 PM EDT [facility] ([facility]) Name Value Range Interpretation Code Description Data Deanna rce(s) Supporting Document(s) Laboratory test finding (navigational concept) Laboratory test result [facility] ([facility]) ID Date Data Source [id number] 06/11/2021 11:55:00 AM EDT [facility] Name Value Range Interpretation Code Description Data Deanna rce(s) Supporting Document(s) SARS coronavirus 2 RNA Not Detected [facility] This lab was ordered by [facility] and reported by [facility]. ID Date Data Source [id number] 06/11/2021 11:55:00 AM EDT [facility] Name Value Range Interpretation Code Description Data [facility] rce(s) Supporting Document(s) SARS COV2 JASMINE [facility] _SARS CoV2 [id number], NAAReport ed: 06/13/2021 08:05 Status=F RESULT FLAG RANGE UNITS SC --SARS-CoV-2, JASMINE Not Detected Not Detected RN 06/13/[email or web address].LCTRThis nucleic acid amplification test was developed and its performancecharacteristics determined by [facility]. Nucleic acidamplification tests include RT-PCR and TMA. This test has not beenFDA cleared or approved. This test has been authorized by FDA underan Emergency Use Authorization (EUA). This test is only authorizedfor the duration of time the declaration that circumstances existjustifying the authorization of the emergency use of in vitrodiagnostic tests for detection of SARS-CoV-2 virus and/or diagnosisof COVID-19 infection under section 564(b)(1) of the Act, 21 U.S.C.360bbb-3(b) (1), unless the authorization is terminated or revokedsooner.When diagnostic testing is negative, the possibility of a falsenegative result should be considered in the context of a patient'srecent exposures and the presence of clinical signs and symptomsconsistent with COVID- 19. An individual without symptoms of COVID-19and who is not shedding SARS-CoV-2 virus would expect to have anegative (not detected) result in this assay.SARS-CoV-2, JASMINE 2 DAY TATReported: 06/13/2021 08:05 Status=F --------TEST RESULT FLAG RANGE UNITS SC --SARS-CoV-2, JASMINE 2 DAY TAT Performed RN 06/13/21.0805.[email or web address].LCTRRN Test performed by: [facility] [address] Amy Burciaga MD ID Date Data Source [id number] 05/28/2021 09:50:00 AM EDT [facility] Name Value Range Interpretation Code Description Data Deanna rce(s) Supporting Document(s) TSH 4.40 uIU/mL 0.36 - 3.74 Above high normal [facility] ID Date Data Source [id number] 05/28/2021 09:50:00 AM EDT [facility] Name Value Range Interpretation Code Description Data Deanna rce(s) Supporting Document(s) Natriuretic peptide B [Mass/volume] in Serum or Plasma 3781 PG/M L 0 - 125 Above high normal [facility] Testing methodology changed t o chemiluminscent immunoassay based on Amarin technology. Effective 04/28/18. ID Date Data Source [id number] 05/28/2021 09:50:00 AM EDT [facility] Name Value Range Interpretation Code Description Data Deanna rce(s) Supporting Document(s) BASIC METABOLIC PANEL [facility] BASIC METABOLIC PANEL Sodium [Moles/volume] in Serum or Plasma 142 mEq/L 136 - 145 [facility] Potassium [Moles/volume] in Serum or Plasma 4.3 mEq/L 3.5 - 5.1 [facility] Chloride [Moles/volume] in Serum or Plasma 106 mEq/L 98 - 107 [facility] Carbon dioxide, total [Moles/volume] in Serum or Plasma 20.1 mEq /L 21.0 - 32.0 Below low normal [facility] Glucose [Mass/volume] in Serum or Plasma 169 mg/dL 70 - 100 Above high normal [facility] Urea nitrogen [Mass/volume] in Serum or Plasma 107 mg/dL 7 - 18 Above upper panic limits [facility] 107 [facility] ital READ BACK YES [facility] l CREATININE SERUM 2.79 mg/dL 0.70 - 1.30 Above high normal [facility] AGE 66 yrs [facility] l eGFR NON-AFR AMR 23 [facility] eGFR AFR AMR 28 [facility] ital BUN/CREAT 38 6 - 25 Above high normal [facility] Calcium [Mass/volume] in Serum or Plasma 8.4 mg/dL 8.8 - 10.2 Below low normal [facility] ANION GAP 16 7 - 15 Above high normal [facility] Estimated GFR reference r sandra: > 60 mL/min/1.73m >18 years: Calculated using IDMS traceable MDRD Study Equation <18 years: Calculated using IDMS traceable Bedside Wharton Equation ID Date Data Source [id number] 05/28/2021 09:50:00 AM EDT [facility] Name Value Range Interpretation Code Description Data Deanna rce(s) Supporting Document(s) [facility] Leukocytes [#/volume] in Blood by Automated count 4.0 K/uL 4.0 - 10 .0 [facility] Erythrocytes [#/volume] in Blood by Automated count 3.63 M/uL 4.30 - 6.10 Below low normal [facility] Hemoglobin [Mass/volume] in Blood 10.8 g/dL 13.5 - 17.5 Below low no rmal [facility] Hematocrit [Volume Fraction] of Blood by Automated count 33.5 % 39.0 - 50.0 Below low normal [facility] Erythrocyte mean corpuscular volume [Entitic volume] by Auto mated count 92.3 fL 80.0 - 96.0 [facility] Erythrocyte mean corpuscular hemoglobin [Entitic mass] by Automated count 29.8 pg 26.0 - 34.0 [facility] Erythrocyte mean corpuscular hemoglobin concentration [Mass/volume] by Automated count 32.2 g/dL 32.0 - 36.0 [facility] Erythrocyte distribution width [Ratio] by Automated count 15.7 % 11.6 - 14.8 Above high normal [facility] Platelets [#/volume] in Blood by Automated count 127 K/uL 150 - 450 Below low normal [facility] Platelet mean volume [Entitic volume] in Blood by Automated count 9.4 fL 7.1 - 10.4 [facility] Neutrophils [#/volume] in Blood by Automated count 2.60 K/uL 1.70 - 7.70 [facility] Lymphocytes [#/volume] in Blood by Automated count 0.97 K/uL 1.50 - 6.00 Below low normal [facility] Monocytes [#/volume] in Blood by Automated count 0.34 K/uL 0.00 - 1. 00 [facility] Eosinophils [#/volume] in Blood by Automated count 0.07 K/uL 0.03 - 0.48 [facility] Basophils [#/volume] in Blood by Automated count 0.01 K/uL 0.01 - 0. 08 [facility] 0.02 Urinalysis macro (dipstick) panel - Urine 0.000 10^3/uL 0.000 - 0.012 [facility] Neutrophils/100 leukocytes in Blood by Automated count 64.9 % 42. 0 - 75.0 [facility] Lymphocytes/100 leukocytes in Blood by Automated count 24.2 % 15. 0 - 41.0 [facility] Monocytes/100 leukocytes in Blood by Automated count 8.5 % 0.0 - 12.0 [facility] Eosinophils/100 leukocytes in Blood by Automated count 1.7 % 0.0 - 7.0 [facility] 0.20.50 NRBC 0.0 % [facility] MANUAL DIFF NOT INDICATED [facility] ospital RBC MORPH NOT INDICATED [facility] pital ID Date Data Source [id number] 05/25/2021 02:57:00 PM EDT [facility] Name: JAMAR WILSON : 1955 Age/Sex: 66M Ordering Provider: FREEDOM Diana Med Rec #: [id number] Reg Status: [facility] REF Room #: Date of Service: 05/25/21 Report Number: [id number] cc:Adonis Manzano MD; FREEDOM Diana Send Report To: [id number] US/US Abd Limited Single Organ Reason for exam: POSTPROC SEROMA OF SKIN FINDINGS: The patient is status post hernia repair. 19 cm x 18 cm x 3.5 cm seroma identified under the skin. No other significant findings. IMPRESSION: 18 cm x 19 cm x 3.5 cm subcutaneous seroma. Fluoroscopy time in seconds: Number of Exposures: Time Portable Image Performed: Contrast Agent in ml: Method of Administration: REPORT SIGNATURE ON FILE Reported By: Checo Cleaning MD Electronically signed by: Checo Cleaning MD 05/26/21 1048 Dictation Date/Time: 05/25/21 0836 Transcribed Date/Time: 05/25/21 1457 Superintendent Operating: IVAN Name Value Range Interpretation Code Description Data Deanna rce(s) Supporting Document(s) ID Date Data Source [id number] 05/07/2021 08:50:00 AM EDT [facility] Name Value Range Interpretation Code Description Data Deanna rce(s) Supporting Document(s) 25-OH VITAMIN D 25.7 ng/mL 30.0 - 100 Below low normal [facility] Deficient < 20 ng/mL Insufficient 20 - < 30 ng/mL Sufficient 30 - 100 ng/mL 25-OH vitamin D reference values based on the Clinical Guidelines Subcommittee of the Endocrine Society Task Force. Biotin can interfere with 25-OH Vitamin D results if taken 48 hours prior to specimen collection. ID Date Data Source [id number] 05/07/2021 08:50:00 AM EDT [facility] Name Value Range Interpretation Code Description Data Deanna rce(s) Supporting Document(s) Hemoglobin A1c/Hemoglobin.total in Blood 7.7 % 4.0 - 5.6 Above high normal [facility] Glucose mean value [Mass/volume] in Blood Estimated fr om glycated hemoglobin 174 mg/dL [facility] \\BLDo\\HEMOGLO BIN A1C\\BLDx\\ 4.0 - 5.6%: Normal 5.7 - 6.4%: Suggests Impaired Glucose Metabolism > or = 6.5%: Abnormal Estimated average glucose calculated using ADAG Study formula as recommended by the [place] [employer]. ID Date Data Source [id number] 05/07/2021 08:50:00 AM EDT [facility] Name Value Range Interpretation Code Description Data Deanna rce(s) Supporting Document(s) COMPREHENSIVE CHEM PROFILE i [facility] COMPREHENSIVE METABOLIC PANEL Sodium [Moles/volume] in Serum or Plasma 142 mEq/L 136 - 145 [facility] Potassium [Moles/volume] in Serum or Plasma 4.6 mEq/L 3.5 - 5.1 [facility] Chloride [Moles/volume] in Serum or Plasma 104 mEq/L 98 - 107 [facility] Carbon dioxide, total [Moles/volume] in Serum or Plasma 24.9 mEq /L 21.0 - 32.0 [facility] Glucose [Mass/volume] in Serum or Plasma 175 mg/dL 70 - 100 Above high normal [facility] Urea nitrogen [Mass/volume] in Serum or Plasma 87 mg/dL 7 - 18 Above upper panic limits [facility] CALLED TO: [facility]ARDENIA [facility]VERIFIED 88 [facility] ital READ BACK YES [facility] l CREATININE SERUM 2.16 mg/dL 0.70 - 1.30 Above high normal [facility] AGE 66 yrs [facility] l HEIGHT 0.00 INCHES [facility] eGFR NON-AFR AMR 31 [facility] eGFR AFR AMR 37 [facility] ital BUN/CREAT 40 6 - 25 Above high normal [facility] Protein [Mass/volume] in Serum or Plasma 8.1 g/dL 6.0 - 8.3 [facility] Albumin [Mass/volume] in Serum or Plasma 3.9 g/dL 3.8 - 5.4 [facility] GLOBULIN 4.2 g/dL 2.0 - 4.0 Above high normal [facility] A/G RATIO 0.9 0.8 - 2.0 [facility] Calcium [Mass/volume] in Serum or Plasma 9.3 mg/dL 8.8 - 10.2 [facility] Bilirubin.total [Mass/volume] in Serum or Plasma 0.7 mg/dL 0.2 - 1.0 [facility] Bilirubin.direct [Mass/volume] in Serum or Plasma 0.2 mg/dL 0.0 - 0. 2 [facility] INDIRECT BILI 0.5 mg/dL 0.0 - 1.1 [facility] pital ALK PHOSPHATASE 73 U/L 40 - 129 [facility]spital Aspartate aminotransferase [Enzymatic ac tivity/volume] in Serum or Plasma by With P-5'-P 18 IU/L 7 - 37 [facility] Alanine aminotransferase [Enzymatic acti vity/volume] in Serum or Plasma by With P-5'-P 28 IU/L 12 - 78 [facility] ANION GAP 13 7 - 15 [facility] Estimated GFR referenc e range: >60ml/min/1.73m >18 years: Calculated using IDMS traceable Study Equation <18 years: Calculated using IDMS tracable Bedside Schartz Equation ID Date Data Source [id number] 05/07/2021 08:50:00 AM EDT [facility] Name Value Range Interpretation Code Description Data Deanna rce(s) Supporting Document(s) TSH 5.09 uIU/mL 0.36 - 3.74 Above high normal [facility] ID Date Data Source [id number] 05/07/2021 08:50:00 AM EDT [facility] Name Value Range Interpretation Code Description Data Deanna rce(s) Supporting Document(s) LIPID PROFILE [facility] pital LIPID PROFILE Cholesterol [Mass/volume] in Serum or Plasma 107 mg/dL [facility] Triglyceride [Mass/volume] in Serum or Plasma 167 mg/dL [facility] Cholesterol in HDL [Mass/volume] in Serum or Plasma 41 mg/dL [facility] Cholesterol in LDL [Mass/volume] in Serum or Plasma by calculation 33 mg/dL [facility] CHOL/HDL 2.61 [facility] \\BLDo\\INTERPRE TATION\\BLDx\\ REFERENCE RANGES (NATIONAL CHOLESTEROL EDUCATION PROGRAM) CHOLESTEROL < 200 mg/dL DESIREABLE 200 - 239 mg/dL BORDERLINE HIGH > 240 mg/dL HIGH TRIGLYCERIDES < 150 mg/dL DESIREABLE 150 - 199 mg/dL BORDERLINE HIGH 200 - 499 mg/dL HIGH > or = 500 mg/dL VERY HIGH HDL > or = 60 mg/dL HIGH < 40 mg/dL LOW LDL < 100 mg/dL DESIREABLE 100 - 129 mg/dL LOW RISK 130 - 159 mg/dL BORDERLINE HIGH 160 - 189 mg/dL HIGH > or = 190 mg/dL VERY HIGH ID Date Data Source [id number] 05/07/2021 08:50:00 AM EDT [facility] Name Value Range Interpretation Code Description Data Deanna rce(s) Supporting Document(s) Natriuretic peptide B [Mass/volume] in Serum or Plasma 3762 PG/M L 0 - 125 Above high normal [facility] Testing methodology changed t o chemiluminscent immunoassay based on Amarin technology. Effective 04/28/18. ID Date Data Source [id number] 05/07/2021 08:50:00 AM EDT [facility] Name Value Range Interpretation Code Description Data Deanna rce(s) Supporting Document(s) [facility] Leukocytes [#/volume] in Blood by Automated count 4.8 K/uL 4.0 - 10 .0 [facility] Erythrocytes [#/volume] in Blood by Automated count 4.18 M/uL 4.30 - 6.10 Below low normal [facility] Hemoglobin [Mass/volume] in Blood 12.4 g/dL 13.5 - 17.5 Below low no rmal [facility] Hematocrit [Volume Fraction] of Blood by Automated count 38.8 % 39.0 - 50.0 Below low normal [facility] Erythrocyte mean corpuscular volume [Entitic volume] by Auto mated count 92.8 fL 80.0 - 96.0 [facility] Erythrocyte mean corpuscular hemoglobin [Entitic mass] by Automated count 29.7 pg 26.0 - 34.0 [facility] Erythrocyte mean corpuscular hemoglobin concentration [Mass/volume] by Automated count 32.0 g/dL 32.0 - 36.0 [facility] Erythrocyte distribution width [Ratio] by Automated count 15.1 % 11.6 - 14.8 Above high normal [facility] Platelets [#/volume] in Blood by Automated count 124 K/uL 150 - 450 Below low normal [facility] Platelet mean volume [Entitic volume] in Blood by Automated count 10.0 fL 7.1 - 10.4 [facility] Neutrophils [#/volume] in Blood by Automated count 2.97 K/uL 1.70 - 7.70 [facility] Lymphocytes [#/volume] in Blood by Automated count 1.07 K/uL 1.50 - 6.00 Below low normal [facility] Monocytes [#/volume] in Blood by Automated count 0.47 K/uL 0.00 - 1. 00 [facility] Eosinophils [#/volume] in Blood by Automated count 0.28 K/uL 0.03 - 0.48 [facility] Basophils [#/volume] in Blood by Automated count 0.03 K/uL 0.01 - 0. 08 [facility] 0.01 Urinalysis macro (dipstick) panel - Urine 0.000 10^3/uL 0.000 - 0.012 [facility] Neutrophils/100 leukocytes in Blood by Automated count 61.5 % 42. 0 - 75.0 [facility] Lymphocytes/100 leukocytes in Blood by Automated count 22.2 % 15. 0 - 41.0 [facility] Monocytes/100 leukocytes in Blood by Automated count 9.7 % 0.0 - 12.0 [facility] Eosinophils/100 leukocytes in Blood by Automated count 5.8 % 0.0 - 7.0 [facility] 0.60.20 NRBC 0.0 % [facility] MANUAL DIFF NOT INDICATED [facility] RBC MORPH NOT INDICATED [facility] pital ID Date Data Source [id number] 04/17/2021 02:11:[address] [facility] [address] [place] [address] TELEPHONE RADIOLOGY DEPARTMENT Name: [facility] #: [id number] : 1955 Ordering Physician: LAUREL WILKS Sex: M Date: 04/12/21 Admission Type: O/P X-ray Number: [id number] Unsigned Transcriptions are preliminary reports and do not represent a Medical or Legal Document XRAY CHEST 2 VIEW BETH SORENSEN [id number] COMPLETE:04/12/21 01:21 RLL 02407 (REASON FOR CHEST: DYSPNEA Comparison: 08/31/2020. FINDINGS: Examination of the chest 2 views submitted for evaluation. The cardiac silhouette is prominent, unchanged. A multi lead defibrillator device is seen. Bibasilar atelectatic changes and possible trace right pleural effusion is seen. Mild pulmonary vascular congestion is evident. No focal consolidations, or pneumothorax. No acute osseous abnormalities. IMPRESSION: Mild pulmonary vascular congestion and bibasilar atelectatic changes, with possible trace right pleural effusion. Correlate for congestive heart failure. Electronically Reviewed and Signed [place] [address] TELEPHONE RADIOLOGY DEPARTMENT Name: WILSON [facility] #: [id number] : 1955 Ordering Physician: LAUREL WILKS Sex: M Date: 04/12/21 Admission Type: O/P X-ray Number: [id number] Unsigned Transcriptions are preliminary reports and do not represent a Medical or Legal Document MD 04/17/21 14:11 Dictating Initials: JKJ Transcribed Date: 04/12/21 17:11 Transcribe Initials: MICHEAL Name Value Range Interpretation Code Description Data Deanna rce(s) Supporting Document(s) ID Date Data Source [id number] 04/17/2021 02:09:04 [place] [address] TELEPHONE RADIOLOGY DEPARTMENT Name: WILSON [facility] #: [id number] : 1955 Ordering Physician: NOHEMI Sex: M Date: 04/12/21 Admission Type: O/P X-ray Number: [id number] Unsigned Transcriptions are preliminary reports and do not represent a Medical or Legal Document US DOPPLER EXTREM VEINS BILAT 34539 COMPLETE:04/12/21 14:40 LEI 77901 (REASON FOR VASCULAR: SWOLLEN EXTREMITY US EXTREMITY 07941 COMPLETE:04/12/21 12:20 LEI 60589 (REASON FOR VASCULAR: SWOLLEN EXTREMITY FINDINGS: Ultrasound examination of the bilateral lower extremities. The deep venous system was studied using duplex and color Doppler flow demonstrating normal venous compressibility and flow augmentation. There is no focal widening. Lymph nodes identified in the groin regions. IMPRESSION: No ultrasonographic evidence for deep venous thrombosis. Electronically Reviewed and Signed By FERNANDO EASTMAN 04/17/21 14:08 Dictating Initials: BE Transcribed Date: 04/12/21 17:35 Transcribe Initials: LI Name Value Range Interpretation Code Description Data Deanna rce(s) Supporting Document(s) ID Date Data Source [id number] 04/17/2021 02:09:[address] [facility] [address] [place] [address] TELEPHONE RADIOLOGY DEPARTMENT Name: [facility] #: [id number] : 1955 Ordering Physician: NOHEMI Sex: M Date: 04/12/21 Admission Type: O/P X-ray Number: [id number] Unsigned Transcriptions are preliminary reports and do not represent a Medical or Legal Document US DOPPLER EXTREM VEINS BILAT 12080 COMPLETE:04/12/21 14:40 LEI 42913 (REASON FOR VASCULAR: SWOLLEN EXTREMITY US EXTREMITY 58784 COMPLETE:04/12/21 12:20 [facility] 32730 (REASON FOR VASCULAR: SWOLLEN EXTREMITY FINDINGS: Ultrasound examination of the bilateral lower extremities. The deep venous system was studied using duplex and color Doppler flow demonstrating normal venous compressibility and flow augmentation. There is no focal widening. Lymph nodes identified in the groin regions. IMPRESSION: No ultrasonographic evidence for deep venous thrombosis. Electronically Reviewed and Signed By FERNANDO EASTMAN 04/17/21 14:08 Dictating Initials: BE Transcribed Date: 04/12/21 17:35 Transcribe Initials: Name Value Range Interpretation Code Description Data Deanna rce(s) Supporting Document(s) ID Date Data Source [id number] 04/16/2021 07:10:00 AM EDT [facility] Name Value Range Interpretation Code Description Data Deanna rce(s) Supporting Document(s) Natriuretic peptide B [Mass/volume] in Serum or Plasma [address] PG/ ML 0 - 125 Above high normal [facility] Testing methodology changed t o chemiluminscent immunoassay based on Amarin technology. Effective 04/28/18. ID Date Data Source [id number] 04/16/2021 07:10:00 AM EDT [facility] Name Value Range Interpretation Code Description Data Deanna rce(s) Supporting Document(s) BASIC METABOLIC PANEL [facility] BASIC METABOLIC PANEL Sodium [Moles/volume] in Serum or Plasma 139 mEq/L 136 - 145 [facility] Potassium [Moles/volume] in Serum or Plasma 4.6 mEq/L 3.5 - 5.1 [facility] Chloride [Moles/volume] in Serum or Plasma 99 mEq/L 98 - 107 [facility] Carbon dioxide, total [Moles/volume] in Serum or Plasma 29.8 mEq /L 21.0 - 32.0 [facility] Glucose [Mass/volume] in Serum or Plasma 270 mg/dL 70 - 100 Above high normal [facility] Urea nitrogen [Mass/volume] in Serum or Plasma 38 mg/dL 7 - 18 Above high normal [facility] CREATININE SERUM 1.45 mg/dL 0.70 - 1.30 Above high normal [facility] 66 [facility]-AFR AMR 49 [facility] eGFR AFR AMR 59 [facility] BUN/CREAT 26 6 - 25 Above high normal [facility] Calcium [Mass/volume] in Serum or Plasma 9.1 mg/dL 8.8 - 10.2 [facility] ANION GAP 10 7 - 15 [employer] l Estimated GFR reference r sandra: > 60 mL/min/1.73m >18 years: Calculated using IDMS traceable MDRD Study Equation <18 years: Calculated using IDMS traceable Bedside Wharton Equation ID Date Data Source [id number] 04/14/2021 10:44:44 AM EDT [facility] Name Value Range Interpretation Code Description Data Deanna rce(s) Supporting Document(s) SODIUM 139 mmol/L (136-145) [facility] POTASSIUM 3.9 mmol/L (3.6-5.2) [facility] CHLORIDE 103 mmol/L (100-108) [facility] CO2 30 mmol/L (22-31) [facility] ANION GAP 6 mmol/L (7-16) L [facility] UREA NITROGEN 33 mg/dL (7-24) H [facility] CREATININE 1.64 mg/dL (0.80-1.30) H [facility] BUN/CREAT RATIO 20.1 RATIO (10.0-20.0) H [facility] GLUCOSE 220 mg/dL (70-99) H [facility] CALCIUM 8.5 mg/dL (8.4-10.2) [facility] GFR 42 ml/min/1.73m2 (>59) L [facility] GFR ( AMER) 51 ml/min/1.73m2 (>59) L [facility] GFR INTERPRETATION [facility] --NORMAL KIDNEY FUNCTION OR MILD DISEASE - GFR >OR= 60CHRONIC KIDNEY DISEASE - GFR 15 - 59RENAL FAILURE - GFR <15 Est. GFR calculation based on the MDRDstudy equation, which assumes a steadystate for creatinine. Est. GFR should notbe used for medication dosing. ID Date Data Source [id number] 04/14/2021 07:27:31 AM EDT [facility] Name Value Range Interpretation Code Description Data Deanna rce(s) Supporting Document(s) POC GLUCOSE 204 mg/dL (70-99) H [facility] PERFORMED BY CLINICAL STAFF ID Date Data Source [id number] 04/13/2021 09:34:07 PM EDT [facility] Name Value Range Interpretation Code Description Data Deanna rce(s) Supporting Document(s) POC GLUCOSE 223 mg/dL (70-99) H [facility] PERFORMED BY CLINICAL STAFF ID Date Data Source [id number] 04/13/2021 04:57:46 PM EDT [facility] Name Value Range Interpretation Code Description Data Deanna rce(s) Supporting Document(s) POC GLUCOSE 150 mg/dL (70-99) H [facility] PERFORMED BY CLINICAL STAFF ID Date Data Source [id number] 04/20/2021 08:29:00 AM EDT [facility] DATE OF EXAM: 04/13/2021ULTRASOUND GUIDE D ABSCESS DRAINAGE. INDICATION: LOCULATED FLUID COLLECTION IN ANT WALL 15.7 X 5.4 CM COMPARISON: outside CT 04/11/2020 TECHNIQUE: Informed consent obtained from the patient who understands risks of bleeding and sepsis. Preliminary ultrasound shows probably anechoic collection and subcutaneous anterior abdominal wall without corresponding to the CT finding. Using sterile technique and local anesthetic, 19-gauge needle was advanced into the collection with US guidance. Serosanguineous fluid was aspirated and sent for culture and sensitivity. Using Seldinger technique, 10 Tuvaluan pigtail catheter was placed and attached to kojo bag. Sterile adhesive dressing was applied. Patient tolerated the procedure well and was discharged with stable vital signs. IMPRESSION: 10 Tuvaluan pigtail drainage of anterior abdominal wall collection yielding serosanguineous fluid suggestive of seroma. Professional interpretation performed at [facility] .End of diagnostic report for accession: [id number] Interpreted: Nithin Schmitt MDTranscribed: 04/20/2021 08:23 AMSigned: 04/20/2021 08:29 AM Nithin Schmitt MD [facility] # [id number] [facility] # [id number] Name Value Range Interpretation Code Description Data Deanna rce(s) Supporting Document(s) ID Date Data Source [id number] 04/18/2021 12:21:38 PM EDT [facility] SPECIMEN DESCRIPTION ABDOMENSPECI AL REQUESTS NONEGRAM STAIN FEW (<10/LPF) WHITE BLOOD CELLS NO BACTERIACULTURE RESULTS NO GROWTH 5 DAYSREPORT STATUS FINAL 04/18/2021 Name Value Range Interpretation Code Description Data Deanna rce(s) Supporting Document(s) ID Date Data Source [id number] 04/18/2021 12:21:33 PM EDT [facility] SPECIMEN DESCRIPTION ABDOMENSPECI AL REQUESTS NONECULTURE RESULTS NO ANAEROBES ISOLATED AFTER 5 DAYSREPORT STATUS FINAL 04/18/2021 Name Value Range Interpretation Code Description Data Deanna rce(s) Supporting Document(s) ID Date Data Source [id number] 04/13/2021 03:50:00 PM [facility] [place], [place] [address]PATIENT NAME: JAMAR WILSONDATE OF : 1955EPORT: OPERATIONPATIENT NUMBER: [id number] STATUS: OF ADMISSION:DATE OF DISCHARGE:ROOM:DATE OF PROCEDURE:PROCEDURE PERFORMED: Cardioversion under propofol anesthetic.SURGEON: Juan Miguel Abdul MDPROCEDURE: The patient was shocked 200 joules biphasic to sinus rhythm. The patient is waiting return to a full level of consciousness.IMPRESSION: Successful cardioversion of AFib to sinus rhythm and an atrialpaced rhythm.DICTATED BY: Juan Miguel Abdul MDDictated: 04/13/2021 10:15DT: 04/13/2021 10:26Job #: [id number]: [facility] computer generated reports are not confirmed orauthenticated unless they are signed by the providerElectronically Authenticated by:JUAN MIGUEL ABDUL MD On 04/13/2021 03:50 PM EDT Name Value Range Interpretation Code Description Data Deanna rce(s) Supporting Document(s) ID Date Data Source [id number] 04/13/2021 08:40:17 AM EDT [facility] Name Value Range Interpretation Code Description Data Deanna rce(s) Supporting Document(s) SODIUM 141 mmol/L (136-145) [facility] POTASSIUM 3.8 mmol/L (3.6-5.2) [facility] CHLORIDE 107 mmol/L (100-108) [facility] CO2 29 mmol/L (22-31) [facility] ANION GAP 5 mmol/L (7-16) L [facility] UREA NITROGEN 39 mg/dL (7-24) H [facility] CREATININE 1.56 mg/dL (0.80-1.30) H [facility] BUN/CREAT RATIO 25.0 RATIO (10.0-20.0) H [facility] GLUCOSE 148 mg/dL (70-99) H [facility] CALCIUM 7.8 mg/dL (8.4-10.2) L [facility] GFR 45 ml/min/1.73m2 (>59) L [facility] GFR ( AMER) 54 ml/min/1.73m2 (>59) L [facility] GFR INTERPRETATION [facility] --NORMAL KIDNEY FUNCTION OR MILD DISEASE - GFR >OR= 60CHRONIC KIDNEY DISEASE - GFR 15 - 59RENAL FAILURE - GFR <15 Est. GFR calculation based on the MDRDstudy equation, which assumes a steadystate for creatinine. Est. GFR should notbe used for medication dosing. ID Date Data Source [id number] 04/17/2021 10:35:05 AM EDT [facility] SPECIMEN DESCRIPTION PERIPHERALSP ECIAL REQUESTS NONECULTURE RESULTS NO GROWTH 5 DAYSREPORT STATUS FINAL 04/17/2021 Name Value Range Interpretation Code Description Data Deanna rce(s) Supporting Document(s) ID Date Data Source [id number] 04/17/2021 10:35:05 AM EDT [facility] SPECIMEN DESCRIPTION PERIPHERALSP ECIAL REQUESTS NONECULTURE RESULTS NO GROWTH 5 DAYSREPORT STATUS FINAL 04/17/2021 Name Value Range Interpretation Code Description Data Deanna rce(s) Supporting Document(s) ID Date Data Source [id number] 04/12/2021 11:29:42 PM EDT [facility] Name Value Range Interpretation Code Description Data Deanna rce(s) Supporting Document(s) ESR 27 mm/h (0-20) H [facility] ID Date Data Source [id number] 04/12/2021 09:46:37 PM EDT [facility] Name Value Range Interpretation Code Description Data Deanna rce(s) Supporting Document(s) C REACTIVE PROTEIN @ 8.1 mg/dL (0.0-0.5) H [facility] PER[facility] AT [address] [place] [address] ID Date Data Source [id number] 04/12/2021 09:16:08 PM EDT [facility] Name Value Range Interpretation Code Description Data Deanna rce(s) Supporting Document(s) WBC 5.4 10*3/uL (4.1-11.0) [facility] [place] RBC 3.40 10*6/uL (4.60-6.10) L [facility] HGB 10.5 g/dL (13.5-18.0) L [facility] HCT 32.3 % (41.0-53.0) L [facility] MCV 95.1 fL (80.0-95.0) H [facility] MCH 30.8 pg (27.0-32.0) [facility] MCHC 32.4 g/dL (32.0-36.0) [facility] RDW 15.7 % (10.5-14.5) H [facility] PLT 151 10*3/uL (150-450) [facility] MPV 9.0 fL (7.1-10.7) [facility] NEUT % 62.0 % (35.0-75.0) [facility] LYMPH % 23.2 % (16.0-52.0) [facility] MONO % 8.6 % (0.0-8.0) H [facility] EOS % 5.7 % (0.0-5.0) H [facility] BASO % 0.5 % (0.0-4.0) [facility] NEUT # 3.4 10*3/uL (1.8-7.7) [facility] LYMPH # 1.3 10*3/uL (1.2-4.8) [facility] MONO # 0.5 10*3/uL (0.0-0.8) [facility] Eosinophils [#/volume] in Blood by Automated count 0.3 10*3/uL (0.0-0 .5) [facility] BASO # 0.0 10*3/uL (0.0-0.2) [facility] ID Date Data Source [id number] 04/13/2021 09:19:00 AM EDT [facility] [id number] [place], [place] [address]PATIENT NAME: JAMAR WILSONDATE OF : 4REPORT: ADMISSION NOTEPATIENT NUMBER: [id number] STATUS: OF ADMISSION:ROOM:Jamar Wilson has been under my care for severe ischemic cardiomyopathy. He has had a large anterior wall myocardial infarction complicated bycongestive heart failure. He has a history of stenting of the leftanterior descending artery with a 3 x 18 Promus drug-eluting stent in02/2010, history of CABG on 03/29/2002 with a single ARBOLEDA anastomosed tothe obtuse marginal branch of the circumflex. He developed a stenosis inthe dominant circumflex prior to and following the origin of the arterywhich was bypassed to the ELDER, so he underwent a 4.0 x 24 Synergydrug-eluting stent to the mid circumflex in an effort to improve flow tothe mid and distal portion of the dominant circ. The stented segment ofthe LAD remained patent. He has had considerable depression of leftventricular systolic function with an EF between 25 and 30 percent, severeglobal hypokinesis, anterior akinesis. His last EF of 25 to 30. He doeshave a pacemaker. He has had moderate to severe tricuspid valveregurgitation, moderate biatrial enlargement. He underwent an attemptedablation for his atrial fibrillation which was associated with worseningcongestive heart failure by Dr. Pacheco. It was a pulmonary vein isolation,CTI ablation for spontaneous occurring atypical flutter. He was noted tohave an elevated left atrial pressures. He has had a recent operation formultiple recurrent incisional hernias. He had an exploratory laparotomy,removal of the abdominal wall reconstruction and repair of multipleabdominal hernias with mesh that was complicated by both congestive h eartfailure and an acute kidney injury with creatinine rising up to 3.25, BUNup to 76; subsequently, falling to 57 and 1.53 in the setting of acuterenal failure. His congestive failure medications were rolled back and nowhe had worsening of congestive heart failure. He was short of breath. [facility]went [facility]. He was also noted to have an elevatedD-dimer up to 1979. The patient is maintained on Eliquis. I thought itwould be unusual for him to have an embolus while on it, but notimpossible; but I did not take risk for it to dry load to prove that he didnot have a PE. He has had peripheral vascular disease, hypertension. Heis a former smoker, pack a day for 50 years quitting and subsequently hasquit.In emergency room, his lactic acid was normal. COVID testing was negative.Troponin was normal. EKG showed atrial fibrillation with RVR, then hisheart rate has come under control. He had fevers of about 100 degrees,which was just recent. He is having no abdominal wall pain. He does havewhat looks like another *------* in the ER when he stands up. He was foundon CT scan to have a fluid collection without stranding measuring 15.7 x5.4 cm. Differential diagnosis of seroma versus abscess. He had someinterstitial thickening seen in the upper cuts of the abdomen suggestingthat he was in congestive heart failure.MEDICATIONS: He was taking carvedilol 6.25 mg b.i.d., dig 0.125, Eliquis 5mg b.i.d., Entresto 49/51 because of lower blood pressure recently was downto 0.5 mg b.i.d., ferrous sulfate 324 a day, furosemide 40 mg twice a day,gabapentin 300 mg, lorazepam one, Lipitor 20, magnesium oxide, pantoprazoleand vitamin D.LABORATORY DATA AND DIAGNOSTICS: [place] his BUN was 36 with acreatinine of 1.74. Albumin was 2.8 with a globulin of 3.2. LFTs werenormal. White count was 5, hemoglobin 9.8 with hematocrit of 30.9 with anMCV of 96.6, platelets were 140,000 a week.ASSESSMENT/PLAN: We presented the case to Interventional Radiology. Ihave called Dr. Abraham Padilla to discuss this case. We would like to getthat seroma drained to be sure that it is not infected. Actually, rightnow he is not febrile. He does have exacerbation of congestive heartfailure with N-terminal proBNP between 65031 and 17,000. I have given thepatient metolazone here, 80 mg of Lasix IV push and dose of spirolactoneand he has diuresed somewhat, his breathing is improving slightly. We willwatch his pressures and see whether he can get back up to the higher doseof Entresto. We may also consider retrying cardioverting while he is here.Thankfully, his ventricular response atrial fibrillation is currentlywell- controlled. EKGs have shown sinus rhythm with first-degree AV blockand QRS duration of 142 milliseconds, poor R-wave progression suggestive ofold anterolateral infarction as of 03/16/2021. I will be checking backwith you.DICTATED BY: FRANCO Robbinsictated: 04/12/2021 19:41DT: 04/12/2021 19:50Job #: [id number]: [facility] computer generated reports are notconfirmed or authenticated unless they are signed by the providerElectronically Authenticated by:JUAN MIGUEL ABDUL MD On 04/13/2021 09:19 AM EDT Name Value Range Interpretation Code Description Data Deanna rce(s) Supporting Document(s) ID Date Data Source [id number] 04/12/2021 05:58:02 PM EDT [facility] Name Value Range Interpretation Code Description Data Deanna rce(s) Supporting Document(s) POC GLUCOSE 130 mg/dL (70-99) H [facility] PERFORMED BY CLINICAL STAFF ID Date Data Source [id number] 04/12/2021 05:11:00 PM EDT [facility] DATE OF EXAM: 04/12/2021XAM: Chest 1V I NDICATION: DYSPNEA TECHNIQUE: Single semiupright AP view of the chest was obtained. COMPARISON: Chest x-ray dated 03/16/2021. FINDINGS: Cardiomediastinal contours are unchanged. Cardiac silhouette is enlarged. Left pacemaker. Prior midline sternotomy. Overlying leads obscure portions of the chest. Improved aeration in both lung bases with residual bibasilar atelectasis. Right pleural effusion nearly resolved. Unchanged mild prominence of the interstitium. No acute osseous abnormality. IMPRESSION: Trace residual right pleural effusion. Improved aeration in both lung bases with residual bibasilar atelectasis. Unchanged mild prominence of interstitium suspicious for pulmonary edema. Cardiomegaly. Professional interpretation performed at [facility] .End of diagnostic report for accession: [id number] Interpreted: Carolyn De Jesus MDTranscribed: 04/12/2021 05:09 PMSigned: 04/12/2021 05:11 PM Carolyn De Jesus MD -- N: [id number] [facility] # [id number] [facility] # [id number] Name Value Range Interpretation Code Description Data Deanna rce(s) Supporting Document(s) ID Date Data Source [id number] 04/12/2021 11:38:00 AM EDT [facility] Name Value Range Interpretation Code Description Data Deanna rce(s) Supporting Document(s) Glucose [Moles/volume] in Capillary blood by Glucometer 157 mg/d L 70 - 100 Above high normal [facility] RESULTS < 40 mg/dL OR > 500 mg /dL WILL REQUIRE CONFIRMATION BY LAB ID Date Data Source [id number] 04/12/2021 09:53:41 AM EDT [facility] Name Value Range Interpretation Code Description Data Deanna rce(s) Supporting Document(s) Discharge Note [facility] [id number] vYm [file] [id number]+[employer]/[id number]/z/dC+[id number]J [file] [id number]== ID Date Data Source [id number] 04/12/2021 09:48:31 AM EDT [facility] Name Value Range Interpretation Code Description Data Deanna rce(s) Supporting Document(s) Admission Note [facility] [id number] vYm [file] [id number] PERFORMANCE CONSULTANT/[id number]/z/[id number] [file] [id number] ID Date Data Source [id number] 04/12/2021 07:39:00 AM EDT [facility] Name Value Range Interpretation Code Description Data Deanna rce(s) Supporting Document(s) Glucose [Moles/volume] in Capillary blood by Glucometer 186 mg/d L 70 - 100 Above high normal [facility] RESULTS < 40 mg/dL OR > 500 mg /dL WILL REQUIRE CONFIRMATION BY LAB ID Date Data Source [id number] 04/12/2021 07:00:00 AM EDT [facility] Name Value Range Interpretation Code Description Data Deanna rce(s) Supporting Document(s) CBC [facility] l COMPLETE BLOOD COUNT Leukocytes [#/volume] in Blood by Automated count 5.7 K/uL 4.0 - 10 .0 [facility] Erythrocytes [#/volume] in Blood by Automated count 3.20 M/uL 4.30 - 6.10 Below low normal [facility] Hemoglobin [Mass/volume] in Blood 9.8 g/dL 13.5 - 17.5 Below low no rmal [facility] Hematocrit [Volume Fraction] of Blood by Automated count 30.9 % 39.0 - 50.0 Below low normal [facility] Erythrocyte mean corpuscular volume [Entitic volume] by Auto mated count 96.6 fL 80.0 - 96.0 Above high normal [facility] Erythrocyte mean corpuscular hemoglobin [Entitic mass] by Automated count 30.6 pg 26.0 - 34.0 [facility] Erythrocyte mean corpuscular hemoglobin concentration [Mass/volume] by Automated count 31.7 g/dL 32.0 - 36.0 Below low normal [facility] johnny Erythrocyte distribution width [Ratio] by Automated count 14.9 % 11.6 - 14.8 Above high normal [facility] Platelets [#/volume] in Blood by Automated count 140 K/uL 150 - 450 Below low normal [facility] Platelet mean volume [Entitic volume] in Blood by Automated count 10.5 fL 7.1 - 10.4 Above high normal [facility] Neutrophils [#/volume] in Blood by Automated count 3.97 K/uL 1.70 - 7.70 [facility] Lymphocytes [#/volume] in Blood by Automated count 0.95 K/uL 1.50 - 6.00 Below low normal [facility] Monocytes [#/volume] in Blood by Automated count 0.53 K/uL 0.00 - 1. 00 [facility] Eosinophils [#/volume] in Blood by Automated count 0.24 K/uL 0.03 - 0.48 [facility] Basophils [#/volume] in Blood by Automated count 0.02 K/uL 0.01 - 0. 08 [facility] 0.01 Urinalysis macro (dipstick) panel - Urine 0.000 10^3/uL 0.000 - 0.012 [facility] Neutrophils/100 leukocytes in Blood by Automated count 69.4 % 42. 0 - 75.0 [facility] Lymphocytes/100 leukocytes in Blood by Automated count 16.6 % 15. 0 - 41.0 [facility] Monocytes/100 leukocytes in Blood by Automated count 9.3 % 0.0 - 12.0 [facility] Eosinophils/100 leukocytes in Blood by Automated count 4.2 % 0.0 - 7.0 [facility] 0.30.20 NRBC 0.0 % [facility] NOT INDICATED [facility] ospital RBC MORPH NOT INDICATED [facility] pital ID Date Data Source [id number] 04/12/2021 07:00:00 AM EDT [facility] Name Value Range Interpretation Code Description Data Deanna rce(s) Supporting Document(s) COMPREHENSIVE CHEM PROFILE i [facility] COMPREHENSIVE METABOLIC PANEL Sodium [Moles/volume] in Serum or Plasma 139 mEq/L 136 - 145 [facility] Potassium [Moles/volume] in Serum or Plasma 3.8 mEq/L 3.5 - 5.1 [facility] Chloride [Moles/volume] in Serum or Plasma 103 mEq/L 98 - 107 [facility] Carbon dioxide, total [Moles/volume] in Serum or Plasma 25.0 mEq /L 21.0 - 32.0 [facility] Glucose [Mass/volume] in Serum or Plasma 211 mg/dL 70 - 100 Above high normal [facility] Urea nitrogen [Mass/volume] in Serum or Plasma 36 mg/dL 7 - 18 Above high normal [facility] CREATININE SERUM 1.74 mg/dL 0.70 - 1.30 Above high normal [facility] AGE 66 yrs [facility] HEIGHT 7074.00 [facility] eGFR NON-AFR AMR 39 [facility] eGFR AFR AMR 48 [facility] BUN/CREAT 21 6 - 25 [facility] l Protein [Mass/volume] in Serum or Plasma 6.0 g/dL 6.0 - 8.3 [facility] Albumin [Mass/volume] in Serum or Plasma 2.8 g/dL 3.8 - 5.4 Below low normal [facility] GLOBULIN 3.2 g/dL 2.0 - 4.0 [facility] A/G RATIO 0.9 0.8 - 2.0 [facility] Calcium [Mass/volume] in Serum or Plasma 7.6 mg/dL 8.8 - 10.2 Below low normal [facility] Bilirubin.total [Mass/volume] in Serum or Plasma 0.8 mg/dL 0.2 - 1.0 [facility] Bilirubin.direct [Mass/volume] in Serum or Plasma 0.3 mg/dL 0.0 - 0.2 Above high normal [facility] INDIRECT BILI 0.5 mg/dL 0.0 - 1.1 [facility] pital ALK PHOSPHATASE 58 U/L 40 - 129 [facility] ospital Aspartate aminotransferase [Enzymatic ac tivity/volume] in Serum or Plasma by With P-5'-P 13 IU/L 7 - 37 [facility] Alanine aminotransferase [Enzymatic acti vity/volume] in Serum or Plasma by With P-5'-P 12 IU/L 12 - 78 [facility] ANION GAP 11 7 - 15 [facility] Estimated GFR referenc e range: >60ml/min/1.73m >18 years: Calculated using IDMS traceable Study Equation <18 years: Calculated using IDMS tracable Bedside Schartz Equation ID Date Data Source [id number] 04/11/2021 11:38:00 PM EDT [facility] Name Value Range Interpretation Code Description Data Deanna rce(s) Supporting Document(s) URINALYSIS ROUTINE wMICRO RFLX TO CX [facility] URINALYSIS W/REFLEX CULTURE REFERENCE RANGES SOURCE Clean Ca [facility] COLOR Yellow Colorless-Carmen [facility] ospital CLARITY Clear Normal: Clear [facility] pital LEUK EST Negative Negative - Trace [facility] NITRITE Negative Normal: Negative [facility] UROBILINOGEN Negative Negative - Trace [facility] PROTEIN 2+ Negative - Trace Abnormal (applies to non-numer ic results) [facility] pH 5.5 5.0 - 8.0 [facility] l BLOOD 2+ Negative - Trace Abnormal (applies to non-numer ic results) [facility] SPEC GRAVITY 1.020 1.000 - 1.030 [facility] KETONE Negative Negative - Trace [facility] BILIRUBIN Negative Normal: Negative [facility] GLUCOSE Negative Normal: Negative [facility] MICROSCOPIC See Below [facility] johnny WBC 0 - 1 None Seen - 5/hpf [facility] RBC 10 - 20 None Seen - 5/hpf Abnormal (applies to non-nume maryjo results) [facility] EPITHELIAL See Below NORMAL: None Seen [facility] SQUAMOUS EPI FEW/hpf NORMAL: None Seen [facility] TRANS EPI FEW/hpf NORMAL: None Seen Abnormal (applies to non-nume maryjo results) [facility] RENAL EPI FEW/hpf NORMAL: None Seen Abnormal (applies to non-nume maryjo results) [facility] BACTERIA NONE SEEN NORMAL: None Seen [facility] MUCOUS NONE SEEN NORMAL: None Seen [facility] CASTS See Below [facility] HYALINE CAST 0-1/lpf NORMAL: None Seen [facility] COARSE GRAN NONE SEEN NORMAL: None Seen [facility] FINE GRAN NONE SEEN NORMAL: None Seen [facility] WBC CAST NONE SEEN NORMAL: None Seen [facility] RBC CAST NONE SEEN NORMAL: None Seen [facility] WAXY CAST NONE SEEN NORMAL: None Seen [facility] FATTY CAST NONE SEEN NORMAL: None Seen [facility] CRYSTALS Not Indicated [facility] pital OTHER NA [facility] CULTURE INDICATED? NO Normal: No [facility] ID Date Data Source [id number] 04/11/2021 11:15:00 PM EDT [facility] Name Value Range Interpretation Code Description Data Deanna rce(s) Supporting Document(s) CULTURE BLOOD X 2 [facility] _CULTURE BLOOD #1_BLOOD GRAM STAI N: COMMENTS PRELIMINARY REPORT: _NO_GROWTH_48_HOURS 04/14/21.1056.KJV. COMMENTS FINAL REPORT: _NO_GROWTH_96_HOURS 04/16/21.1224.KJV. COMMENTS NOT INDICATED _CULTURE BLOOD #2_BLOOD GRAM STAIN: COMMENTS PRELIMINARY REPORT: _NO_GROWTH_48_HOURS 04/14/21.1056.KJV. COMMENTS FINAL REPORT: _NO_GROWTH_96_HOURS 04/16/21.1224.KJV. COMMENTS NOT INDICATED 04/16/21.1225.KJV.COMPLETENOT INDICATEDNOT INDICATED ID Date Data Source [id number] 04/11/2021 10:52:00 PM EDT [id number] [place] [address] TELEPHONE RADIOLOGY DEPARTMENT Name: [facility] #: [id number] : PAVEL Ordering Physician: LAUREL WILKS Sex: M Date: 04/12/21 Admission Type: O/P X-ray Number: [id number] Unsigned Transcriptions are preliminary reports and do not represent a Medical or Legal Document \\CTNo\\ EKG TRACING ONLY W/O REPORT [id number] COMPLETE:04/12/21 11:30 LEI [id number] (REASON FOR PROCED: SOB \\CTNx\\ SEE SCENNED EKG Dictating Initials: CF Transcribe Date: 04/25/21 11:02 Transcribe Initials: MICHEAL Name Value Range Interpretation Code Description Data Deanna rce(s) Supporting Document(s) ID Date Data Source [id number] 04/11/2021 10:35:00 PM EDT [facility] Name Value Range Interpretation Code Description Data Deanna rce(s) Supporting Document(s) SARS-CoV-2 RNA Nph Ql JASMINE+non-probe NOT DETECTED [facility] This lab was ordered by [facility] and reported by [facility]. ID Date Data Source [id number] 04/11/2021 10:35:00 PM EDT [facility] Name Value Range Interpretation Code Description Data Deanna rce(s) Supporting Document(s) Magnesium [Mass/volume] in Serum or Plasma 1.4 mg/dL 1.8 - 2.4 Below low normal [facility] ID Date Data Source [id number] 04/11/2021 10:35:00 PM EDT [facility] Name Value Range Interpretation Code Description Data Deanna rce(s) Supporting Document(s) COMPREHENSIVE CHEM PROFILE [facility] COMPREHENSIVE METABOLIC PANEL Sodium [Moles/volume] in Serum or Plasma 141 mEq/L 136 - 145 [facility] Potassium [Moles/volume] in Serum or Plasma 4.3 mEq/L 3.5 - 5.1 [facility] Chloride [Moles/volume] in Serum or Plasma 103 mEq/L 98 - 107 [facility] Carbon dioxide, total [Moles/volume] in Serum or Plasma 24.2 mEq /L 21.0 - 32.0 [facility] Glucose [Mass/volume] in Serum or Plasma 216 mg/dL 70 - 100 Above high normal [facility] Urea nitrogen [Mass/volume] in Serum or Plasma 34 mg/dL 7 - 18 Above high normal [facility] CREATININE SERUM 1.62 mg/dL 0.70 - 1.30 Above high normal [facility] AGE 66 yrs [facility] l HEIGHT 74.00 INCHES [facility] ital eGFR NON-AFR AMR 43 [facility] eGFR AFR AMR 52 [facility] ital BUN/CREAT 21 6 - 25 [facility] l Protein [Mass/volume] in Serum or Plasma 7.4 g/dL 6.0 - 8.3 [facility] Albumin [Mass/volume] in Serum or Plasma 3.6 g/dL 3.8 - 5.4 Below low normal [facility] GLOBULIN 3.8 g/dL 2.0 - 4.0 [facility] A/G RATIO 0.9 0.8 - 2.0 [facility] Calcium [Mass/volume] in Serum or Plasma 8.6 mg/dL 8.8 - 10.2 Below low normal [facility] Bilirubin.total [Mass/volume] in Serum or Plasma 0.9 mg/dL 0.2 - 1.0 [facility] Bilirubin.direct [Mass/volume] in Serum or Plasma 0.3 mg/dL 0.0 - 0.2 Above high normal [facility] INDIRECT BILI 0.6 mg/dL 0.0 - 1.1 [facility] pital ALK PHOSPHATASE 76 U/L 40 - 129 [facility] ospital Aspartate aminotransferase [Enzymatic ac tivity/volume] in Serum or Plasma by With P-5'-P 26 IU/L 7 - 37 [facility] Alanine aminotransferase [Enzymatic acti vity/volume] in Serum or Plasma by With P-5'-P 4 IU/L 12 - 78 Below low normal [facility] al ANION GAP 14 7 - 15 [facility] l Estimated GFR referenc e range: >60ml/min/1.73m >18 years: Calculated using IDMS traceable Study Equation <18 years: Calculated using IDMS tracable Bedside Schartz Equation ID Date Data Source [id number] 04/11/2021 10:35:00 PM EDT [facility] Name Value Range Interpretation Code Description Data Deanna rce(s) Supporting Document(s) RESP PROFILE RP2.1 NASAL PCR C [facility] \\BLDo\\RESPIRATORY PROFILE NASAL PHARYNGEAL BY PCR\\BLDx\\ \\BLDo\\DETECTED _NONE \\BLDx\\ 04/11/21.2347.LMB. \\BLDo\\EQUIVOCAL _NONE \\BLDx\\ 04/11/21.234.LMB. VIRUSES ADENOVIRUS NOT DETECTED NORMAL: NOT DETECTED [facility] CORONAVIRUS 229E NOT DETECTED NORMAL: NOT DETECTED [facility] CORONAVIRUS HKU1 NOT DETECTED NORMAL: NOT DETECTED [facility] CORONAVIRUS NL63 NOT DETECTED NORMAL: NOT DETECTED [facility] CORONAVIRUS OC43 NOT DETECTED NORMAL: NOT DETECTED [facility] 46869-1 NOT DETECTED NORMAL: NOT DETECTED [facility] REPORT TO DEPARTMENT OF HEAL TH HUMAN METAPNEUMO NOT DETECTED NORMAL: NOT DETECTED [facility] HUMAN RHINO/ENTERO NOT DETECTED NORMAL: NOT DETECTED [facility] NOT DETECTEDNOT DETECTEDNOT DETECTEDNOT DETECTED PARAINFLUENZA V3 NOT DETECTED NORMAL: NOT DETECTED [facility] NOT DETECTED RSV NOT DETECTED NORMAL: NOT DETECTED [facility] BACTERIANOT DET ECTEDNOT DETECTEDNOT DETECTEDNOT DETECTED TESTING PERFORMED USING THE AIRVENDARRAY RP2.1 MULTIPLEXED NUCLEIC ACID TEST. THIS TEST HAS NOT BEEN FDA CLEARED OR APPROVED; THIS TEST HAS BEEN AUTHORIZED BY FDA UNDER AN EUA FOR USE BY AUTHORIZED LABORATORIES; THIS TEST HAS BEEN AUTHORIZED ONLY FOR THE DETECTION AND DIFFERENTATION OF NUCLEI ACID OF SARS-CoV-2 FROM MULTIPLE RESPIRATORY VIRAL AND BACTERIAL ORGANIMS; AND THIS TEST IS ONLY AUTHORIZED FOR THE DURATION OF THE DECLARATION THAT CIRCUMSTANCES EXIST JUSTIFYING THE AUTHORIZATION OF EMERGENCY USE OF IN VITRO DIAGNOSTIC TESTS FOR THE DETECTION AND/OR DIAGNOSIS OF COVID-19 UNDER SECTION 564(b)(1) OF THE ACT, 21 U.S.C. 360bbb-3(b) (1), UNLESS THE AUTHORIZATION IS TERMINATED OR REVOKED SOONER. ID Date Data Source [id number] 04/11/2021 10:35:00 PM EDT [facility] Name Value Range Interpretation Code Description Data Deanna rce(s) Supporting Document(s) Natriuretic peptide B [Mass/volume] in Serum or Plasma 71434 PG/ ML 0 - 125 Above high normal [facility] Testing methodology changed t o chemiluminscent immunoassay based on Amarin technology. Effective 04/28/18. ID Date Data Source [id number] 04/11/2021 10:35:00 PM EDT [facility] Name Value Range Interpretation Code Description Data Deanna rce(s) Supporting Document(s) Fibrin D-dimer DDU [Mass/volume] in Platelet poor plas ma by Immunoassay 1980 ng/mL 0 - 400 Above high normal [facility] METHODOLOGY: FLUORESCENCE IMM UNOASSAY \\BLDo\\D- DIMER INTERPRETATION\\BLDx\\ Elevated D-dimer levels occur in a number of clinical situations and are not diagnostic of any specific condition. While increased levels are not specific for DVT or PE, low D-dimer levels may be used to rule out these conditions. Limitations: Specimens from patients who have routinely exposed to animals or to animal serum products may have contain heterophile antibodies, which may cause erroneous D-dimer results. ID Date Data Source [id number] 04/11/2021 10:35:00 PM EDT [facility] Name Value Range Interpretation Code Description Data Deanna rce(s) Supporting Document(s) CBC [facility] l COMPLETE BLOOD COUNT Leukocytes [#/volume] in Blood by Automated count 9.3 K/uL 4.0 - 10 .0 [facility] Erythrocytes [#/volume] in Blood by Automated count 4.05 M/uL 4.30 - 6.10 Below low normal [facility] Hemoglobin [Mass/volume] in Blood 12.3 g/dL 13.5 - 17.5 Below low no rmal [facility] Hematocrit [Volume Fraction] of Blood by Automated count 39.2 % 3 9.0 - 50.0 [facility] Erythrocyte mean corpuscular volume [Entitic volume] by Auto mated count 96.8 fL 80.0 - 96.0 Above high normal [facility] Erythrocyte mean corpuscular hemoglobin [Entitic mass] by Automated count 30.4 pg 26.0 - 34.0 [facility] Erythrocyte mean corpuscular hemoglobin concentration [Mass/volume] by Automated count 31.4 g/dL 32.0 - 36.0 Below low normal [facility] Erythrocyte distribution width [Ratio] by Automated count 14.9 % 11.6 - 14.8 Above high normal [facility] Platelets [#/volume] in Blood by Automated count 185 K/uL 150 - 450 [facility] Platelet mean volume [Entitic volume] in Blood by Automated count 10.0 fL 7.1 - 10.4 [facility] Neutrophils [#/volume] in Blood by Automated count 7.22 K/uL 1.70 - 7.70 [facility] Lymphocytes [#/volume] in Blood by Automated count 1.01 K/uL 1.50 - 6.00 Below low normal [facility] Monocytes [#/volume] in Blood by Automated count 0.48 K/uL 0.00 - 1. 00 [facility] Eosinophils [#/volume] in Blood by Automated count 0.43 K/uL 0.03 - 0.48 [facility] Basophils [#/volume] in Blood by Automated count 0.04 K/uL 0.01 - 0. 08 [facility] 0.07 Urinalysis macro (dipstick) panel - Urine 0.000 10^3/uL 0.000 - 0.012 [facility] Neutrophils/100 leukocytes in Blood by Automated count 78.1 % 42.0 - 75.0 Above high normal [facility] Lymphocytes/100 leukocytes in Blood by Automated count 10.9 % 15.0 - 41.0 Below low normal [facility] Monocytes/100 leukocytes in Blood by Automated count 5.2 % 0.0 - 12.0 [facility] Eosinophils/100 leukocytes in Blood by Automated count 4.6 % 0.0 - 7.0 [facility] 0.40.80 NRBC 0.0 % [facility] l MANUAL DIFF NOT INDICATED [facility] ospital RBC MORPH NOT INDICATED [facility] pital ID Date Data Source [id number] 04/11/2021 10:35:00 PM EDT [facility] Name Value Range Interpretation Code Description Data Deanna rce(s) Supporting Document(s) Troponin I.cardiac [Mass/volume] in Serum or Plasma <0.017 ng/mL 0.017 - 0.060 [facility] \\BLDo\\TROPONIN I I NTERPRETATION:\\BLDx\\ < 0.06 ng/mL NOT SUSPICIOUS FOR AN AMI 0.06 - 0.59 ng/mL MARTÍNEZ ZONE FOR AN AMI, SERIAL MONITORING RECOMMENDED 0.6 - 1.5 ng/mL SUSPICIOUS FOR AN AMI Reference range updated for new chemiluminescent immunoassay method based on Amarin technology. Effective 05/04/18. ID Date Data Source [id number] 04/11/2021 10:35:00 PM EDT [facility] Name Value Range Interpretation Code Description Data Deanna rce(s) Supporting Document(s) Lactate [Moles/volume] in Serum or Plasma 1.4 mmol/L 0.4 - 2.0 [facility] \\BLDo\\[LA]LACTIC ACID \\BLDx\\ [facility] Adult and Pediatric Sepsis Protocols: Adult SIRS/Septic Patient = Lactate > or = 4.0 mmol/L Pediatric SIRS/Septic Patient = Lactate > or = 2.2 mmol/L Base Line, 3 hour and 6 hour lactic acid values should be obtained for further evaluation. ID Date Data Source VENIPUNCTURE OP 04/03/2021 12:00:00 AM EDT eCW1 ([facility]) Name Value Range Interpretation Code Description Data Deanna rce(s) Supporting Document(s) VENIPUNCTURE VENIPUNCTURE eCW1 ([facility]) ID Date Data Source UA-DIP 04/03/2021 12:00:00 AM EDT eCW1 ([facility]) Name Value Range Interpretation Code Description Data Deanna rce(s) Supporting Document(s) 1.015 SPEC.GRAV. [facility]CW1 ([facility]) Yellow YELLOW COLOR eCW1 ([facility]) Clear CLEAR CLARITY eCW1 ([facility]) Negative NEGATIVE PROTEIN eCW1 ([facility]) 5.5 5.0 - 8.0 PH eCW1 ([facility]) Negative NEGATIVE GLUCOSE eCW1 ([facility]) Negative NEGATIVE KETONES eCW1 ([facility]) Trace-lysed NEGATIVE BLOOD [facility] ([facility] Negative NEGATIVE BILIRUBIN eCW1 ([facility]) Negative NEGATIVE NITRITE eCW1 ([facility]) 0.2 0.2-1.0 UROBILINOGEN eCW1 ([facility]) Negative NEGATIVE LEUKOCYTES eCW1 ([facility]) ID Date Data Source CBC w/DIFF 04/03/2021 12:00:00 AM EDT eCW1 ([facility]) Name Value Range Interpretation Code Description Data Deanna rce(s) Supporting Document(s) 3.78 4.20-6.30 RBC eCW1 ([facility]) 5.6 4.1-10.9 WBC eCW1 ([facility]) 36.5 36.0-51.0 HCT eCW1 ([facility]) 11.8 12.0-18.0 HGB eCW1 ([facility]) 96.6 80.0-97.0 MCV eCW1 ([facility]) 31.2 26.0-32.0 MCH eCW1 ([facility]) 178 140-440 PLT eCW1 ([facility]) 52.6 35.1-43.9 RDW-SD eCW1 ([facility]) 32.3 31.0-36.0 MCHC eCW1 ([facility]) 14.6 11.5-15.5 RDW-CV eCW1 ([facility]) 8.9 7.4-10.4 MPV eCW1 ([facility]) 1.49 0.60-4.10 LYMPH # eCW1 ([facility]) 2.78 1.60-6.10 NEUT # eCW1 ([facility]) 0.42 0.20-0.90 MONO # eCW1 ([facility]) 0.91 0.00-0.50 EO # eCW1 ([facility]) 0.02 0.00-0.10 BASO # eCW1 ([facility]) 49.2 34.0-71.1 NEUT % eCW1 ([facility]) 7.5 10.0-58.5 MONO % eCW1 ([facility]) 26.5 10.0-58.5 LYMPH % eCW1 ([facility]) 16.2 0.7-7.0 EO % eCW1 ([facility]) 0.4 0.1-1.2 BASO % eCW1 ([facility]) 0.01 LOW IG# eCW1 ([facility]) 0.20 0.00-0.43 IG% eCW1 ([facility]) ID Date Data Source Urine Protein.Creat ratio 04/03/2021 12:00:00 AM EDT [facility]CW1 ([facility]) Name Value Range Interpretation Code Description Data Deanna rce(s) Supporting Document(s) 49.7 30.0-125.0 U-CREA eCW1 ([facility]) 18.3 6.0-11.9 U-PROTEIN eCW1 ([facility]) 0.4 0.0-0.2 U-PROT/CREAT eCW1 ([facility]) ID Date Data Source RENAL FUNCTION 04/03/2021 12:00:00 AM EDT eCW1 ([facility]) Name Value Range Interpretation Code Description Data Deanna rce(s) Supporting Document(s) 31 7-18 BUN eCW1 ([facility]) 3.3 3.4-5.0 ALBUMIN eCW1 ([facility]) 1.7 0.6-1.3 CREATININE eCW1 ([facility]) 8.2 8.5-10.1 CALCIUM eCW1 ([facility]) 42.94 >=60.00 GFR NON-AFR.AM [facility] [place]) 51.96 >=60.00 GFR AFR.AM eCW1 ([facility] [place]) 143 135-145 SODIUM eCW1 ([facility] [place]) 4.3 3.6-5.2 POTASSIUM eCW1 ([facility] [place]) 107 100-108 CHLORIDE eCW1 ([facility] [place]) 185.0 70.0-110.0 GLUCOSE eCW1 ([facility] [place]) 27.5 21.0-32.0 CO2 eCW1 ([facility] [place]) 3.5 2.5-4.9 PHOSPHORUS eCW1 ([facility] [place]) 9 5-15 ANION GAP eCW1 ([facility] [place]) ID Date Data Source [id number] 03/28/2021 11:21:00 AM EDT [facility] ([facility]) Name Value Range Interpretation Code Description Data Deanna rce(s) Supporting Document(s) Natriuretic peptide B [Mass/volume] in Serum or Plasma 1170.4 pg /mL 0-100 Above high normal [facility] ([place] [facility]) Labprint and transmitted at 1217 03/28/21 Venipuncture Laboratory test result MEDE NT ([facility]) STAT Draw Completed at 1120. SST Drawn as Extra. ID Date Data Source [id number] 03/27/2021 07:15:00 AM EDT [facility] Name Value Range Interpretation Code Description Data Deanna rce(s) Supporting Document(s) BASIC METABOLIC PANEL [facility] BASIC METABOLIC PANEL Sodium [Moles/volume] in Serum or Plasma 145 mEq/L 136 - 145 [facility] Potassium [Moles/volume] in Serum or Plasma 4.6 mEq/L 3.5 - 5.1 [facility] Chloride [Moles/volume] in Serum or Plasma 108 mEq/L 98 - 107 Above high normal [facility] Carbon dioxide, total [Moles/volume] in Serum or Plasma 26.4 mEq /L 21.0 - 32.0 [facility] Glucose [Mass/volume] in Serum or Plasma 162 mg/dL 70 - 100 Above high normal [facility] Urea nitrogen [Mass/volume] in Serum or Plasma 30 mg/dL 7 - 18 Above high normal [facility] CREATININE SERUM 1.65 mg/dL 0.70 - 1.30 Above high normal [facility] AGE 66 yrs [facility] eGFR NON-AFR AMR 42 [facility] eGFR AFR AMR 51 [facility] BUN/CREAT 18 6 - 25 [facility] Calcium [Mass/volume] in Serum or Plasma 7.7 mg/dL 8.8 - 10.2 Below low normal [facility] ANION GAP 11 7 - 15 [facility] Estimated GFR reference r sandra: > 60 mL/min/1.73m >18 years: Calculated using IDMS traceable MDRD Study Equation <18 years: Calculated using IDMS traceable [facility]side [place] Equation ID Date Data Source [id number] 03/21/2021 12:22:59 PM EDT [facility] Name Value Range Interpretation Code Description Data Deanna rce(s) Supporting Document(s) POC GLUCOSE 184 mg/dL (70-99) H [facility] NOTIFIED NURSEPERFORMED BY CLINICAL S TAFF ID Date Data Source [id number] 03/21/2021 09:44:04 AM EDT [facility] Name Value Range Interpretation Code Description Data Deanna rce(s) Supporting Document(s) SODIUM 144 mmol/L (136-145) [facility] POTASSIUM 3.7 mmol/L (3.6-5.2) [facility] CHLORIDE 113 mmol/L (100-108) H [facility] CO2 23 mmol/L (22-31) [facility] ANION GAP 8 mmol/L (7-16) [facility] UREA NITROGEN 57 mg/dL (7-24) H [facility] CREATININE 1.53 mg/dL (0.80-1.30) H [facility] BUN/CREAT RATIO 37.3 RATIO (10.0-20.0) H [facility] GLUCOSE 152 mg/dL (70-99) H [facility] CALCIUM 8.1 mg/dL (8.4-10.2) L [facility] GFR 46 ml/min/1.73m2 (>59) L [facility] GFR ( AMER) 55 ml/min/1.73m2 (>59) L [facility] GFR INTERPRETATION [facility] --NORMAL KIDNEY FUNCTION OR MILD DISEASE - GFR >OR= 60CHRONIC KIDNEY DISEASE - GFR 15 - 59RENAL FAILURE - GFR <15 Est. GFR calculation based on the MDRDstudy equation, which assumes a steadystate for creatinine. Est. GFR should notbe used for medication dosing. ID Date Data Source [id number] 03/21/2021 08:57:09 AM EDT [facility] Name Value Range Interpretation Code Description Data Deanna rce(s) Supporting Document(s) POC GLUCOSE 142 mg/dL (70-99) H [facility] PERFORMED BY CLINICAL STAFF ID Date Data Source [id number] 03/20/2021 10:38:36 PM EDT [facility] Name Value Range Interpretation Code Description Data Deanna rce(s) Supporting Document(s) POC GLUCOSE 184 mg/dL (70-99) H [facility] PERFORMED BY CLINICAL STAFF ID Date Data Source [id number] 03/20/2021 06:41:54 PM EDT [facility] Name Value Range Interpretation Code Description Data Deanna rce(s) Supporting Document(s) POC GLUCOSE 220 mg/dL (70-99) H [facility] NOTIFIED NURSEPERFORMED BY CLINICAL S TAFF ID Date Data Source [id number] 03/20/2021 04:47:56 PM EDT [facility] Name Value Range Interpretation Code Description Data Deanna rce(s) Supporting Document(s) POC GLUCOSE 112 mg/dL (70-99) H [facility] NOTIFIED NURSEPERFORMED BY CLINICAL S TAFF ID Date Data Source [id number] 03/20/2021 01:24:06 PM EDT [facility] Name Value Range Interpretation Code Description Data Deanna rce(s) Supporting Document(s) POC GLUCOSE 169 mg/dL (70-99) H [facility] NOTIFIED NURSEPERFORMED BY CLINICAL S TAFF ID Date Data Source [id number] 03/20/2021 10:48:03 AM EDT [facility] Name Value Range Interpretation Code Description Data Deanna rce(s) Supporting Document(s) SODIUM 143 mmol/L (136-145) [facility] POTASSIUM 3.9 mmol/L (3.6-5.2) [facility] CHLORIDE 113 mmol/L (100-108) H [facility] CO2 27 mmol/L (22-31) [facility] ANION GAP 3 mmol/L (7-16) L [facility] UREA NITROGEN 69 mg/dL (7-24) H [facility] CREATININE 1.70 mg/dL (0.80-1.30) H [facility] BUN/CREAT RATIO 40.6 RATIO (10.0-20.0) H [facility] GLUCOSE 112 mg/dL (70-99) H [facility] CALCIUM 7.9 mg/dL (8.4-10.2) L [facility] GFR 40 ml/min/1.73m2 (>59) L [facility] GFR ( AMER) 49 ml/min/1.73m2 (>59) L [facility] GFR INTERPRETATION [facility] --NORMAL KIDNEY FUNCTION OR MILD DISEASE - GFR >OR= 60CHRONIC KIDNEY DISEASE - GFR 15 - 59RENAL FAILURE - GFR <15 Est. GFR calculation based on the MDRDstudy equation, which assumes a steadystate for creatinine. Est. GFR should notbe used for medication dosing. ID Date Data Source [id number] 03/20/2021 10:25:53 AM EDT [facility] Name Value Range Interpretation Code Description Data Deanna rce(s) Supporting Document(s) WBC 5.0 10*3/uL (4.1-11.0) [facility] RBC 3.56 10*6/uL (4.60-6.10) L [facility] HGB 10.9 g/dL (13.5-18.0) L [facility] HCT 33.6 % (41.0-53.0) L [facility] MCV 94.3 fL (80.0-95.0) [facility] MCH 30.5 pg (27.0-32.0) [facility] MCHC 32.4 g/dL (32.0-36.0) [facility] RDW 15.6 % (10.5-14.5) H [facility] PLT 179 10*3/uL (150-450) [facility] MPV 8.2 fL (7.1-10.7) [facility] ID Date Data Source [id number] 03/20/2021 09:29:19 AM EDT [facility] Name Value Range Interpretation Code Description Data Deanna rce(s) Supporting Document(s) POC GLUCOSE 113 mg/dL (70-99) H [facility] NOTIFIED NURSEPERFORMED BY CLINICAL S TAFF ID Date Data Source [id number] 03/19/2021 09:43:46 PM EDT [facility] Name Value Range Interpretation Code Description Data Deanna rce(s) Supporting Document(s) POC GLUCOSE 196 mg/dL (70-99) H [facility] NOTIFIED NURSEPERFORMED BY CLINICAL S TAFF ID Date Data Source [id number] 03/19/2021 06:23:32 PM EDT [facility] Name Value Range Interpretation Code Description Data Deanna rce(s) Supporting Document(s) POC GLUCOSE 146 mg/dL (70-99) H [facility] NOTIFIED NURSEPERFORMED BY CLINICAL S TAFF ID Date Data Source [id number] 03/19/2021 12:57:03 PM EDT [facility] Name Value Range Interpretation Code Description Data Deanna rce(s) Supporting Document(s) POC GLUCOSE 152 mg/dL (70-99) H [facility] PERFORMED BY CLINICAL STAFF ID Date Data Source [id number] 03/19/2021 10:12:52 AM EDT [facility] Name Value Range Interpretation Code Description Data Deanna rce(s) Supporting Document(s) POC GLUCOSE 112 mg/dL (70-99) H [facility] PERFORMED BY CLINICAL STAFF ID Date Data Source [id number] 03/19/2021 08:15:33 AM EDT [facility] Name Value Range Interpretation Code Description Data Deanna rce(s) Supporting Document(s) POC GLUCOSE 98 mg/dL (70-99) [facility] NOTIFIED NURSEPERFORMED BY CLINICAL S TAFF ID Date Data Source [id number] 03/19/2021 07:48:48 AM EDT [facility] Name Value Range Interpretation Code Description Data Deanna rce(s) Supporting Document(s) SODIUM 142 mmol/L (136-145) [facility] POTASSIUM 3.9 mmol/L (3.6-5.2) [facility] CHLORIDE 113 mmol/L (100-108) H [facility] CO2 20 mmol/L (22-31) L [facility] ANION GAP 9 mmol/L (7-16) [facility] UREA NITROGEN 75 mg/dL (7-24) H [facility] CREATININE 2.60 mg/dL (0.80-1.30) H [facility] BUN/CREAT RATIO 28.8 RATIO (10.0-20.0) H [facility] GLUCOSE 97 mg/dL (70-99) [facility] CALCIUM 7.7 mg/dL (8.4-10.2) L [facility] GFR 25 ml/min/1.73m2 (>59) L [facility] GFR ([facility] AMER) 30 ml/min/1.73m2 (>59) L [facility] GFR INTERPRETATION [facility] [place] --NORMAL KIDNEY FUNCTION OR MILD DISEASE - GFR >OR= 60CHRONIC KIDNEY DISEASE - GFR 15 - 59RENAL FAILURE - GFR <15 Est. GFR calculation based on the MDRDstudy equation, which assumes a steadystate for creatinine. Est. GFR should notbe used for medication dosing. ID Date Data Source [id number] 03/19/2021 07:09:09 AM EDT [facility] Name Value Range Interpretation Code Description Data Deanna rce(s) Supporting Document(s) RANDOM URINE SODIUM 7 mmol/L [facility] [place] ID Date Data Source [id number] 03/19/2021 07:09:09 AM EDT [facility] Name Value Range Interpretation Code Description Data Deanna rce(s) Supporting Document(s) RANDOM URINE CREAT 179.00 mg/dL [facility] [place] ID Date Data Source [id number] 03/19/2021 12:11:07 AM EDT [facility] Name Value Range Interpretation Code Description Data Deanna rce(s) Supporting Document(s) POC GLUCOSE 83 mg/dL (70-99) [facility] NOTIFIED NURSEPERFORMED BY CLINICAL S TAFF ID Date Data Source [id number] 03/18/2021 10:25:43 PM EDT [facility] Name Value Range Interpretation Code Description Data Deanna rce(s) Supporting Document(s) POC GLUCOSE 73 mg/dL (70-99) [facility] PERFORMED BY CLINICAL STAFF ID Date Data Source [id number] 03/18/2021 09:28:57 PM EDT [facility] Name Value Range Interpretation Code Description Data Deanna rce(s) Supporting Document(s) POC GLUCOSE 86 mg/dL (70-99) [facility] PERFORMED BY CLINICAL STAFF ID Date Data Source [id number] 03/18/2021 05:22:43 PM EDT [facility] Name Value Range Interpretation Code Description Data Deanna rce(s) Supporting Document(s) POC GLUCOSE 114 mg/dL (70-99) H [facility] PERFORMED BY CLINICAL STAFF ID Date Data Source [id number] 03/18/2021 11:55:39 AM EDT [facility] Name Value Range Interpretation Code Description Data Deanna rce(s) Supporting Document(s) POC GLUCOSE 144 mg/dL (70-99) H [facility] PERFORMED BY CLINICAL STAFF ID Date Data Source [id number] 03/18/2021 11:48:48 AM EDT [facility] Name Value Range Interpretation Code Description Data Deanna rce(s) Supporting Document(s) POC GLUCOSE 489 mg/dL (70-99) H [facility] PERFORMED BY CLINICAL STAFF ID Date Data Source [id number] 03/18/2021 10:56:39 AM EDT [facility] Name Value Range Interpretation Code Description Data Deanna rce(s) Supporting Document(s) POC GLUCOSE 141 mg/dL (70-99) H [facility] PERFORMED BY CLINICAL STAFF ID Date Data Source [id number] 03/18/2021 08:50:39 AM EDT [facility] Name Value Range Interpretation Code Description Data Deanna rce(s) Supporting Document(s) POC GLUCOSE 89 mg/dL (70-99) [facility] PERFORMED BY CLINICAL STAFF ID Date Data Source [id number] 03/18/2021 07:13:48 AM EDT [facility] Name Value Range Interpretation Code Description Data Deanna rce(s) Supporting Document(s) SODIUM 141 mmol/L (136-145) [facility] POTASSIUM 4.3 mmol/L (3.6-5.2) [facility] CHLORIDE 113 mmol/L (100-108) H [facility] CO2 15 mmol/L (22-31) L [facility] ANION GAP 13 mmol/L (7-16) [facility] UREA NITROGEN 76 mg/dL (7-24) H [facility] RESULT(S) CALLED TO AND READ BACK JAMEL [place] ON 5SIR ON 03.18.21 [place] [address]12 [place] [id number] CREATININE 3.25 mg/dL (0.80-1.30) H [facility] BUN/CREAT RATIO 23.4 RATIO (10.0-20.0) H [facility] GLUCOSE 86 mg/dL (70-99) [facility] CALCIUM 7.5 mg/dL (8.4-10.2) L [facility] GFR 19 ml/min/1.73m2 (>59) L [facility] GFR ( AMER) 23 ml/min/1.73m2 (>59) L [facility] GFR INTERPRETATION [facility] --NORMAL KIDNEY FUNCTION OR MILD DISEASE - GFR >OR= 60CHRONIC KIDNEY DISEASE - GFR 15 - 59RENAL FAILURE - GFR <15 Est. GFR calculation based on the MDRDstudy equation, which assumes a steadystate for creatinine. Est. GFR should notbe used for medication dosing. ID Date Data Source [id number] 03/18/2021 07:13:48 AM EDT [facility] Name Value Range Interpretation Code Description Data Deanna rce(s) Supporting Document(s) PHOSPHORUS 5.0 mg/dL (2.5-4.5) H [facility] ID Date Data Source [id number] 03/18/2021 07:13:48 AM EDT [facility] Name Value Range Interpretation Code Description Data Deanna rce(s) Supporting Document(s) MAGNESIUM 1.9 mg/dL (1.7-2.4) [facility] ID Date Data Source [id number] 03/18/2021 06:52:13 AM EDT [facility] Name Value Range Interpretation Code Description Data Deanna rce(s) Supporting Document(s) WBC 2.5 10*3/uL (4.1-11.0) L [facility] [place] RBC 3.20 10*6/uL (4.60-6.10) L [facility] HGB 9.9 g/dL (13.5-18.0) L [facility] HCT 30.7 % (41.0-53.0) L [facility] MCV 96.0 fL (80.0-95.0) H [facility] MCH 31.0 pg (27.0-32.0) [facility] MCHC 32.3 g/dL (32.0-36.0) [facility] RDW 15.4 % (10.5-14.5) H [facility] PLT 133 10*3/uL (150-450) L [facility] MPV 8.4 fL (7.1-10.7) [facility] ID Date Data Source [id number] 03/17/2021 09:35:25 PM EDT [facility] Name Value Range Interpretation Code Description Data Deanna rce(s) Supporting Document(s) POC GLUCOSE 80 mg/dL (70-99) [facility] PERFORMED BY CLINICAL STAFF ID Date Data Source [id number] 03/17/2021 05:52:51 PM EDT [facility] Name Value Range Interpretation Code Description Data Deanna rce(s) Supporting Document(s) POC GLUCOSE 95 mg/dL (70-99) [facility] PERFORMED BY CLINICAL STAFF ID Date Data Source [id number] 03/17/2021 01:51:54 PM EDT [facility] Name Value Range Interpretation Code Description Data Deanna rce(s) Supporting Document(s) POC GLUCOSE 119 mg/dL (70-99) H [facility] PERFORMED BY CLINICAL STAFF ID Date Data Source [id number] 03/17/2021 09:51:47 AM EDT [facility] Name Value Range Interpretation Code Description Data Deanna rce(s) Supporting Document(s) POC GLUCOSE 130 mg/dL (70-99) H [facility] NOTIFIED NURSEPERFORMED BY CLINICAL S TAFF ID Date Data Source [id number] 03/17/2021 09:41:25 AM EDT [facility] Name Value Range Interpretation Code Description Data Deanna rce(s) Supporting Document(s) SODIUM 137 mmol/L (136-145) [facility] POTASSIUM 4.9 mmol/L (3.6-5.2) [facility] CHLORIDE 108 mmol/L (100-108) [facility] CO2 17 mmol/L (22-31) L [facility] ANION GAP 12 mmol/L (7-16) [facility] UREA NITROGEN 63 mg/dL (7-24) H [facility] CREATININE 2.91 mg/dL (0.80-1.30) H [facility] BUN/CREAT RATIO 21.6 RATIO (10.0-20.0) H [facility] GLUCOSE 125 mg/dL (70-99) H [facility] CALCIUM 8.0 mg/dL (8.4-10.2) L [facility] GFR 22 ml/min/1.73m2 (>59) L [facility] GFR ( AMER) 26 ml/min/1.73m2 (>59) L [facility] GFR INTERPRETATION [facility] --NORMAL KIDNEY FUNCTION OR MILD DISEASE - GFR >OR= 60CHRONIC KIDNEY DISEASE - GFR 15 - 59RENAL FAILURE - GFR <15 Est. GFR calculation based on the MDRDstudy equation, which assumes a steadystate for creatinine. Est. GFR should notbe used for medication dosing. ID Date Data Source [id number] 03/17/2021 08:12:52 AM EDT [facility] Name Value Range Interpretation Code Description Data Deanna rce(s) Supporting Document(s) MAGNESIUM 2.0 mg/dL (1.7-2.4) [facility] ID Date Data Source [id number] 03/17/2021 08:12:52 AM EDT [facility] Name Value Range Interpretation Code Description Data Deanna rce(s) Supporting Document(s) TOTAL PROTEIN 6.4 g/dL (6.4-8.2) [facility] ALBUMIN 3.0 g/dL (3.2-4.5) L [facility] GLOBULIN 3.4 g/dL (2.7-4.3) [facility] ALB/GLOB RATIO 0.9 RATIO [facility] BILIRUBIN,TOTAL 1.0 mg/dL (0.0-1.0) [facility] PLEASE NOTE:Total bilirubin results may be falselyelevated in patients taking Eltrombopag. BILIRUBIN,CONJUGATED 0.5 mg/dL (0.0-0.3) H [facility] BILIRUBIN,UNCONJ. 0.5 mg/dL (0.0-0.7) [facility] ALKALINE PHOSPHATASE 74 U/L (45-117) [facility] AST (SGOT) 13 U/L (11-39) [facility] ALT (SGPT) 12 U/L (12-78) [facility] ID Date Data Source [id number] 03/17/2021 08:12:52 AM EDT [facility] Name Value Range Interpretation Code Description Data Deanna rce(s) Supporting Document(s) PHOSPHORUS 5.2 mg/dL (2.5-4.5) H [facility] ID Date Data Source [id number] 03/17/2021 07:41:13 AM EDT [facility] Name Value Range Interpretation Code Description Data Deanna rce(s) Supporting Document(s) WBC 2.9 10*3/uL (4.1-11.0) L [facility] [place] RBC 3.61 10*6/uL (4.60-6.10) L [facility] HGB 11.5 g/dL (13.5-18.0) L [facility] HCT 34.8 % (41.0-53.0) L [facility] MCV 96.4 fL (80.0-95.0) H [facility] MCH 31.9 pg (27.0-32.0) [facility] MCHC 33.1 g/dL (32.0-36.0) [facility] RDW 15.6 % (10.5-14.5) H [facility] PLT 158 10*3/uL (150-450) [facility] MPV 8.6 fL (7.1-10.7) [facility] ID Date Data Source [id number] 03/16/2021 09:59:17 PM EDT [facility] Name Value Range Interpretation Code Description Data Deanna rce(s) Supporting Document(s) POC GLUCOSE 124 mg/dL (70-99) H [facility] PERFORMED BY CLINICAL STAFF ID Date Data Source [id number] 03/16/2021 08:53:36 PM EDT [facility] Name Value Range Interpretation Code Description Data Deanna rce(s) Supporting Document(s) COLOR [facility] APPEARANCE [facility] SPEC GRAV URINE 1.019 (1.003-1.030) [facility] PH URINE 5.0 (5.0-7.5) [facility] LEUK ESTERASE (NEG) [facility] NITRITE URINE (NEG) [facility] PROTEIN URINE (NEG) [facility] GLUCOSE URINE (NEG) [facility] KETONE URINE (NEG) [facility] UROBILINOGEN 0.2 mg/dL (0-1.0) [facility] BILIRUBIN URINE 1+ (NEG) A [facility] INTERFERING SUBSTANCES MAY CAUSE FALSEPO SITIVE BILIRUBIN, WHICH HAS BEENSHOWN TO BE CLINICALLY INSIGNIFICANT.CORRELATE WITH OTHER TESTING. BLOOD/HGB URINE (NEG) [facility] URINE WBC (0-5) [facility] URINE RBC (0-2) [facility] EPITHELIAL CELLS 1+ [HPF] [facility] BACTERIA 1+ [HPF] [facility] MUCUS 2+ [HPF] [facility] HYALINE CASTS [facility] ID Date Data Source [id number] 03/16/2021 08:51:26 PM EDT [facility] Name Value Range Interpretation Code Description Data Deanna rce(s) Supporting Document(s) RANDOM URINE SODIUM 8 mmol/L [facility] ID Date Data Source [id number] 03/16/2021 08:47:41 PM EDT [facility] Name Value Range Interpretation Code Description Data Deanna rce(s) Supporting Document(s) RANDOM URINE CREAT 205.00 mg/dL [facility] ID Date Data Source [id number] 03/16/2021 07:05:39 PM EDT [facility] Name Value Range Interpretation Code Description Data Deanna r[facility](s) Supporting Document(s) POC GLUCOSE 120 mg/dL (70-99) H [facility] NOTIFIED NURSEPERFORMED BY CLINICAL S TAFF ID Date Data Source [id number] 03/16/2021 07:27:00 PM EDT [facility] DATE OF EXAM: 03/16/2021ULTRASOUND RETRO PERITONEAL COMPLETE INDICATION: Acute renal failure. COMPARISON: None of this type. TECHNIQUE: Multiple longitudinal and transverse sonographic images of the kidneys and bladder were obtained. FINDINGS: The kidneys are normal in position and are of normal size (right 11.8 cm in length and left 12.4 cm in length). The right renal cortical thickness measures 1.8 cm and left renal cortical thickness measures 1.8 cm. Multiple small simple bilateral renal cysts are noted measuring up to 1.7 cm. There are no suspicious renal cortical abnormalities demonstrated. There is no evidence of hydronephrosis. No abnormal perirenal fluid collections are demonstrated. Evaluation of the urinary bladder is limited, secondary to underdistention. No gross bladder abnormality is demonstrated. A small amount of abdominal ascites is noted. IMPRESSION: No evidence of hydronephrosis. Multiple small simple bilateral renal cysts. Small amount of abdominal ascites. Professional interpretation performed at [facility] [phone].End of diagnostic report for accession: [id number] Interpreted: Ronald Molina MDTranscribed: 03/16/2021 07:25 PMSigned: 03/16/2021 07:27 PM Ronald Mol[address] [facility] ACC # [id number] BILL # [id number] Name Value Range Interpretation Code Description Data [facility](s) Supporting Document(s) ID Date Data Source [id number] 03/16/2021 06:17:00 PM EDT [facility] DATE OF EXAM: 1ABDOMEN CLINICAL STATEMENT: Abdominal distention. TECHNIQUE: Multiple supine views of the abdomen. COMPARISON: None. FINDINGS: Surgical skin mamadou are present. A surgical drain is noted within the pelvis.There is diffuse gaseous distention of small and large bowel, likely representing postoperative ileus.There is no gross evidence of free intraperitoneal air.The visualized osseous structures are intact. IMPRESSION: Findings suggesting postoperative ileus. Professional interpretation performed at [facility] .End of diagnostic report for accession: [id number] Interpreted: Ronald Molina MDTranscribed: 03/16/2021 06:16 PMSigned: 03/16/2021 06:17 PM Ronald Molina MD [facility] ACC # [id number] BILL # [id number] Name Value Range Interpretation Code Description Data [facility](s) Supporting Document(s) ID Date Data Source [id number] 03/16/2021 04:34:00 PM EDT [facility] DATE OF EXAM: 1EXAM: Chest two views INDICATION: POSSBLE CHF COMPARISON: Chest x-ray of 02/22/2020 TECHNIQUE: Frontal and lateral projections of the chest. Findings: There is no interval change in shape and position in the double lead pacemaker/cardioverter with its leads in the projection the right atrium and right ventricle, and its generator in the projection of the left hilum. There is status post midline sternotomy with surgical wires in place. There is a chronic fracture of the superiormost sternal wire. There is interval worsening of the expiratory effort with transverse position of the heart and crowding of the bilateral interstitial markings. There is persistent cardiomegaly with no mediastinal shift or widening. There is interval airspace consolidation with air bronchogram in the right lung base. There is interval development of the linear atelectasis in the projection of the lingula of the left lung. There is a small right pleural effusion. There is no pneumothorax. There is moderate gaseous distention of the stomach and splenic flexure. IMPRESSION:1. Interval airspace consolidation in the right middle and lower lobes. Please differentiate atelectasis versus pneumonia.2. Possible mild CHF versus an artifact from the interval worsening of the expiratory effort. Professional interpretation performed at [facility] .End of diagnostic report for accession: [id number] Interpreted: Donnie Levine MDTranscribed: 03/16/2021 04:26 PMSigned: 03/16/2021 04:34 PM Donnie Levine MD [facility] # [id number] [facility] # [id number] Name Value Range Interpretation Code Description Data Deanna rce(s) Supporting Document(s) ID Date Data Source [id number] 03/16/2021 12:44:03 PM EDT [facility] [place] Name Value Range Interpretation Code Description Data Deanna rce(s) Supporting Document(s) POC GLUCOSE 171 mg/dL (70-99) H [facility] PERFORMED BY CLINICAL STAFF ID Date Data Source [id number] 03/16/2021 07:28:35 AM EDT [facility] [place] Name Value Range Interpretation Code Description Data Deanna rce(s) Supporting Document(s) POC GLUCOSE 140 mg/dL (70-99) [facility] PERFORMED BY CLINICAL STAFF ID Date Data Source [id number] 03/16/2021 08:23:53 AM EDT [facility] Name Value Range Interpretation Code Description Data Deanna rce(s) Supporting Document(s) DIGOXIN 1.1 ng/mL (0.8-2.0) [facility] ID Date Data Source [id number] 03/16/2021 08:23:53 AM EDT [facility] Name Value Range Interpretation Code Description Data Deanna rce(s) Supporting Document(s) SODIUM 134 mmol/L (136-145) L [facility] POTASSIUM 4.8 mmol/L (3.6-5.2) [facility] CHLORIDE 107 mmol/L (100-108) [facility] CO2 19 mmol/L (22-31) L [facility] ANION GAP 8 mmol/L (7-16) [facility] UREA NITROGEN 51 mg/dL (7-24) H [facility] CREATININE 2.68 mg/dL (0.80-1.30) H [facility] BUN/CREAT RATIO 19.0 RATIO (10.0-20.0) [facility] GLUCOSE 123 mg/dL (70-99) H [facility] CALCIUM 8.2 mg/dL (8.4-10.2) L [facility] GFR 24 ml/min/1.73m2 (>59) L [facility] GFR ( AMER) 29 ml/min/1.73m2 (>59) L [facility] GFR INTERPRETATION [facility] --NORMAL KIDNEY FUNCTION OR MILD DISEASE - GFR >OR= 60CHRONIC KIDNEY DISEASE - GFR 15 - 59RENAL FAILURE - GFR <15 Est. GFR calculation based on the MDRDstudy equation, which assumes a steadystate for creatinine. Est. GFR should notbe used for medication dosing. ID Date Data Source [id number] 03/15/2021 09:32:22 PM EDT [facility] Name Value Range Interpretation Code Description Data Deanna rce(s) Supporting Document(s) POC GLUCOSE 226 mg/dL (70-99) H [facility] NOTIFIED NURSEPERFORMED BY CLINICAL S TAFF ID Date Data Source [id number] 03/15/2021 05:29:48 PM EDT [facility] Name Value Range Interpretation Code Description Data Deanna rce(s) Supporting Document(s) POC GLUCOSE 172 mg/dL (70-99) [facility] NOTIFIED NURSEPERFORMED BY CLINICAL S TAFF ID Date Data Source [id number] 03/15/2021 01:37:00 PM EDT [facility] Name Value Range Interpretation Code Description Data Deanna rce(s) Supporting Document(s) POC GLUCOSE 161 mg/dL (70-99) H [facility] NOTIFIED NURSEPERFORMED BY CLINICAL S TAFF ID Date Data Source [id number] 03/15/2021 10:36:56 AM EDT [facility] Name Value Range Interpretation Code Description Data Deanna rce(s) Supporting Document(s) POC GLUCOSE 102 mg/dL (70-99) H [facility] NOTIFIED NURSEPERFORMED BY CLINICAL S TAFF ID Date Data Source [id number] 03/15/2021 08:32:18 AM EDT [facility] Name Value Range Interpretation Code Description Data Deanna rce(s) Supporting Document(s) POC GLUCOSE 93 mg/dL (70-99) [facility] NOTIFIED NURSEPERFORMED BY CLINICAL S TAFF ID Date Data Source [id number] 03/15/2021 07:43:30 AM EDT [facility] Name Value Range Interpretation Code Description Data Deanna rce(s) Supporting Document(s) SODIUM 139 mmol/L (136-145) [facility] POTASSIUM 4.6 mmol/L (3.6-5.2) [facility] CHLORIDE 108 mmol/L (100-108) [facility] CO2 23 mmol/L (22-31) [facility] ANION GAP 8 mmol/L (7-16) [facility] UREA NITROGEN 43 mg/dL (7-24) H [facility] CREATININE 2.04 mg/dL (0.80-1.30) H [facility] BUN/CREAT RATIO 21.1 RATIO (10.0-20.0) H [facility] GLUCOSE 89 mg/dL (70-99) [facility] CALCIUM 8.3 mg/dL (8.4-10.2) L [facility] GFR 33 ml/min/1.73m2 (>59) L [facility] GFR ( AMER) 40 ml/min/1.73m2 (>59) L [facility] GFR INTERPRETATION [facility] --NORMAL KIDNEY FUNCTION OR MILD DISEASE - GFR >OR= 60CHRONIC KIDNEY DISEASE - GFR 15 - 59RENAL FAILURE - GFR <15 Est. GFR calculation based on the MDRDstudy equation, which assumes a steadystate for creatinine. Est. GFR should notbe used for medication dosing. ID Date Data Source [id number] 03/14/2021 09:42:27 PM EDT [facility] Name Value Range Interpretation Code Description Data Deanna rce(s) Supporting Document(s) POC GLUCOSE 131 mg/dL (70-99) H [facility] NOTIFIED NURSEPERFORMED BY CLINICAL S TAFF ID Date Data Source [id number] 03/14/2021 06:01:55 PM EDT [facility] Name Value Range Interpretation Code Description Data Deanna rce(s) Supporting Document(s) POC GLUCOSE 175 mg/dL (70-99) H [facility] NOTIFIED NURSEPERFORMED BY CLINICAL S TAFF ID Date Data Source [id number] 03/14/2021 01:16:14 PM EDT [facility] Name Value Range Interpretation Code Description Data Deanna rce(s) Supporting Document(s) POC GLUCOSE 126 mg/dL (70-99) H [facility] PERFORMED BY CLINICAL STAFF ID Date Data Source [id number] 03/14/2021 07:58:21 AM EDT [facility] Name Value Range Interpretation Code Description Data Deanna rce(s) Supporting Document(s) POC GLUCOSE 165 mg/dL (70-99) H [facility] PERFORMED BY CLINICAL STAFF ID Date Data Source [id number] 03/14/2021 08:41:29 AM EDT [facility] Name Value Range Interpretation Code Description Data Deanna rce(s) Supporting Document(s) SODIUM 141 mmol/L (136-145) [facility] POTASSIUM 4.5 mmol/L (3.6-5.2) [facility] CHLORIDE 111 mmol/L (100-108) H [facility] CO2 22 mmol/L (22-31) [facility] ANION GAP 8 mmol/L (7-16) [facility] UREA NITROGEN 39 mg/dL (7-24) H [facility] CREATININE 1.61 mg/dL (0.80-1.30) H [facility] BUN/CREAT RATIO 24.2 RATIO (10.0-20.0) H [facility] GLUCOSE 170 mg/dL (70-99) H [facility] CALCIUM 7.9 mg/dL (8.4-10.2) L [facility] GFR 43 ml/min/1.73m2 (>59) L [facility] GFR ( AMER) 52 ml/min/1.73m2 (>59) L [facility] GFR INTERPRETATION [facility] --NORMAL KIDNEY FUNCTION OR MILD DISEASE - GFR >OR= 60CHRONIC KIDNEY DISEASE - GFR 15 - 59RENAL FAILURE - GFR <15 Est. GFR calculation based on the MDRDstudy equation, which assumes a steadystate for creatinine. Est. GFR should notbe used for medication dosing. ID Date Data Source [id number] 03/14/2021 08:20:09 AM EDT [facility] Name Value Range Interpretation Code Description Data Deanna rce(s) Supporting Document(s) WBC 8.5 10*3/uL (4.1-11.0) [facility] [place] RBC 3.25 10*6/uL (4.60-6.10) L [facility] HGB 10.3 g/dL (13.5-18.0) L [facility] HCT 31.9 % (41.0-53.0) L [facility] MCV 97.9 fL (80.0-95.0) H [facility] MCH 31.8 pg (27.0-32.0) [facility] MCHC 32.5 g/dL (32.0-36.0) [facility] RDW 15.7 % (10.5-14.5) H [facility] PLT 119 10*3/uL (150-450) L [facility] MPV 9.1 fL (7.1-10.7) [facility] ID Date Data Source [id number] 03/13/2021 09:26:42 PM EDT [facility] Name Value Range Interpretation Code Description Data Deanna rce(s) Supporting Document(s) POC GLUCOSE 265 mg/dL (70-99) H [facility] NOTIFIED NURSEPERFORMED BY CLINICAL S TAFF ID Date Data Source [id number] 03/13/2021 05:32:09 PM EDT [facility] Name Value Range Interpretation Code Description Data Deanna rce(s) Supporting Document(s) POC GLUCOSE 173 mg/dL (70-99) H [facility] NOTIFIED NURSEPERFORMED BY CLINICAL S TAFF ID Date Data Source [id number] 03/17/2021 02:57:00 PM EDT [facility] alexei [place], [facility] [id number] [place] [id number] NAME: ANISHA WILSON OF : 1955EPORT: CONSULTATIONPATIENT NUMBER: [id number] STATUS: IPMEDICAL RECORD NUMBER: [id number]: 02INTERNAL MEDICINE CONSULTATIONDATE OF CONSULTATION:REFERRING PHYSICIAN: Abraham Valerie, MDREASON FOR CONSULTATION: Medical management.HISTORY OF PRESENT ILLNESS: Mr. Jamar Wilson is a 89-barr-lifmjok with extensive past medical history of ischemic cardiomyopathy, atrialfibrillation on Eliquis, status post ICD, diabetes mellitus on insulin,hyperlipidemia, who got admitted under surgery after going for abdominalhernia repair. Medicine consulted for medical management.The patient denies any chest pain or shortness of breath. Abdominal painis tolerable. He is still a smoker. Denies any alcohol abuse. Thepatient stated that he is taking his medications regularly.PAST MEDICAL HISTORY:1. Ischemic cardiomyopathy, status post ICD.2. Atrial fibrillation, on Eliquis.3. Diabetes mellitus.4. Hypertension.5. Gout.6. Hyperlipidemia.SOCIAL HISTORY: He is still smoking. Denies any alcohol abuse.FAMILY HISTORY: Reviewed and noncontributory related to the patient'sillness.REVIEW OF SYSTEMS: Denies any headache. All other nine organ systemsperformed negative, other than that mentioned.PHYSICAL EXAMINATION: Vitals: Temperature is 36.8, respiratory rate is19, heart rate is 74, and blood pressure is 125/67. General: Lyingcomfortably. HEENT: Normocephalic and atraumatic. Neck: Supple. CVS: S1 and S2 regular. Chest: Bilateral clear air entry. Abdomen: With icepack, upper abdomen soft, nontender. PROPERTY MANAGEMENT SPECIALIST: Awake and alert.LABORATORY DATA: Sodium is 147, potassium is 4.7, creatinine is 1.82. WBCis 6.9, hemoglobin is 11.3, platelet count is 133.ASSESSMENT AND PLAN: A 66-year-old male with history of cardiomyopathywith last EF of 25 to 30 percent of on October 2020, atrial fibrillationon Eliquis, hyperlipidemia, diabetes mellitus, gout, hypertension, who gotadmitted for abdominal hernia repair. After surgery, Medicine consultedfor medical management.1. Cardiomyopathy. The patient lost EF of 25 to 30 percent in October 2020. He denies any chest pain or shortness of breath. Continue home medication, Carvedilol, and Entresto. Parameters put on hold for Entresto to avoid postop hypotension. We will hold the Lasix for now.2. Atrial fibrillation, rate controlled. Continue amiodarone and digoxin. Eliquis on hold. Can be restarted once no risk of bleeding.3. Diabetes mellitus, on Lantus and sliding scale insulin. Diabetic team has been consulted.4. Gout, on allopurinol.5. Renal insufficiency. Creatinine is 1.82, baseline unknown. Monitor closely.6. GERD, on PPI.7. Hyperlipidemia. Continue statin.Thanks for allowing us in taking care of this patient. We will continue tofollow.DICTATED BY: FRANCO Rileyictated: 03/13/2021 16:33DT: 03/13/2021 16:38Job #: [id number]: [facility] computer generated reports are notconfirmed or authenticated unless they are signed by the providerElectronically Authenticated by:MELANIE AUGUSTINE MD On 03/17/2021 02:57 PM EDT Name Value Range Interpretation Code Description Data Deanna rce(s) Supporting Document(s) ID Date Data Source [id number] 03/13/2021 12:51:17 PM EDT [facility] Name Value Range Interpretation Code Description Data Deanna rce(s) Supporting Document(s) SODIUM 147 mmol/L (136-145) H [facility] POTASSIUM 4.7 mmol/L (3.6-5.2) [facility] CHLORIDE 117 mmol/L (100-108) H [facility] CO2 23 mmol/L (22-31) [facility] ANION GAP 7 mmol/L (7-16) [facility] UREA NITROGEN 40 mg/dL (7-24) H [facility] CREATININE 1.82 mg/dL (0.80-1.30) H [facility] BUN/CREAT RATIO 22.0 RATIO (10.0-20.0) H [facility] GLUCOSE 152 mg/dL (70-99) H [facility] CALCIUM 7.6 mg/dL (8.4-10.2) L [facility] GFR 37 ml/min/1.73m2 (>59) L [facility] GFR ( AMER) 45 ml/min/1.73m2 (>59) L [facility] GFR INTERPRETATION [facility] --NORMAL KIDNEY FUNCTION OR MILD DISEASE - GFR >OR= 60CHRONIC KIDNEY DISEASE - GFR 15 - 59RENAL FAILURE - GFR <15 Est. GFR calculation based on the MDRDstudy equation, which assumes a steadystate for creatinine. Est. GFR should notbe used for medication dosing. ID Date Data Source [id number] 03/13/2021 12:41:44 PM EDT [facility] [place] Name Value Range Interpretation Code Description Data Deanna rce(s) Supporting Document(s) WBC 6.9 10*3/uL (4.1-11.0) [facility] [place] RESULT(S) CALLED TO AND READ BACK BYAMADA CASTELLANOS IN PACU AT 1239 ON 03/13/21 [place] [id number] RBC 3.56 10*6/uL (4.60-6.10) L [facility] HGB 11.3 g/dL (13.5-18.0) L [facility] HCT 34.5 % (41.0-53.0) L [facility] MCV 97.0 fL (80.0-95.0) H [facility] MCH 31.7 pg (27.0-32.0) [facility] MCHC 32.7 g/dL (32.0-36.0) [facility] RDW 15.9 % (10.5-14.5) H [facility] PLT 133 10*3/uL (150-450) L [facility] MPV 8.7 fL (7.1-10.7) [facility] ID Date Data Source [id number] 03/14/2021 04:29:21 PM EDT [facility] [place], [place] [address]Wfx# SURGICAL PATHOLOGY REPORTPatient Name:JAMAR WILSON:4Received:03/13/2021ccession #:[id number](s) Received: A: Mesh and hernia sacClinical Diagnosis and History: Recurrent incisional hernia. DIAGNOSIS:MESH AND HERNIA SAC BENIGN MESOTHELIAL LINED CONNECTIVE TISSUE WITH FOCALHEMOSIDERIN LADEN MACROPHAGES. FOCAL FOREIGN MATERIAL CONSISTENT WITHMESH. GROSS DESCRIPTION: Specimen received in formalin labeled "mesh and hernia sac" are multipleirregular portions of soft tissue along with fragments of mesh materialaggregating 15.0 x 12.5 x 4.0 cm. Within two pieces of material, bothaveraging 14.0 cm in greatest dimension, these portions contain meshmaterial covered by glistening fibromembranous martínez-white material alongwith yellow adipose tissue. The cut surfaces of the remaining tissues aresurfaced by glistening smooth fibromembranous martínez-white material and theopposite surfaces are shaggy, jones-red with adherent yellow adipose tissue. Director Of Laboratory Operations sections are submitted for microscopic examination. (1block) ayaz/sedaeReported: 03/14/2021Electronically Signed Out By Cristiane Curran M.D. [facility] [place], [place] [address]Technical component performed at [facility], Histopathology, [address] [place] [address], [facility].Reported at [facility], [address] [place] [address], Critical access hospital.This report may include immunohistochemical or in-situ hybridizationresults. Testing was developed and the performance characteristicsdetermined by [facility], as required byCLIA '88. The FDA has determined that approval for specific use is notnecessary for clinical use. The quality of Hematoxylin and Eosin stainsand as applicable, for all immunohistochemical and/or special st ains,including positive and negative controls, were reviewed and consideredappropriate.ICD codes: K43.2CPT4 codes: A: 11949E Name Value Range Interpretation Code Description Data Deanna rce(s) Supporting Document(s) ID Date Data Source [id number] 03/13/2021 12:06:00 PM EDT [facility] Name Value Range Interpretation Code Description Data Deanna rce(s) Supporting Document(s) POC GLUCOSE 146 mg/dL (70-99) H [facility] PERFORMED BY CLINICAL STAFF ID Date Data Source [id number] 03/13/2021 03:01:00 PM EDT [id number] [place] [place], [place] [address]CHURGYC NAME: JAMAR WILSONDATE OF : 4REPORT: OPERATIONPATIENT NUMBER: [id number] STATUS: IPMEDICAL RECORD NUMBER: [id number] [id number] ADMISSION: 03/13/2021ATE OF DISCHARGE: 03/13/2021OOM: 13DATE OF PROCEDURE: 03/13/2021REOPERATIVE DIAGNOSIS: Recurrent incisional hernia.POSTOPERATIVE DIAGNOSIS: Multiple recurrent incisional hernias.PROCEDURE: Exploratory laparotomy, removal of mesh, abdominal wallreconstruction with repair of multiple abdominal hernias with mesh.SURGEON: Abraham Padilla, MDASSISTANT: Josef PGY-3ANESTHESIA: General endotracheal anesthesia.INDICATIONS: A 66-year-old male, status post colon surgery with repair ofa periumbilical hernia with recurrent hernia above and below his previousrepair.OPERATIVE FINDINGS: A large hernia, suprapubic, well below his previoushernia repair. Small hernia above his previous hernia repair. Previousmesh intact.OPERATIVE PROCEDURE: The patient was taken to the operating room, placedsupine on the operating table. After adequate general endotrachealanesthesia, Marie catheter inserted. Bladder returned of clear urine.Orogastric tube was placed in the stomach for gas decompression. Theabdomen was prepped with chlorhexidine scrub and draped in usual sterilemanner. After appropriate timeout, 0.5 percent Marcaine anesthesia wasinfiltrated in the skin and subcutaneous tissue in the incision. A longmidline incision was made centered around the umbilicus connecting thesuperior and inferior hernia from the previous hernia repair that was donelaparoscopically. Incision was carried down through subcutaneous tissue.Above the previous hernia repair, the incision was taken down to thefasc ia. Attenuated fascia was identified. This was done below and thehernia defect was identified. The abdominal cavity was entered. The meshwas split up the midline and the fascia was incised above and belowconnecting all of the hernias into one incision. Some omentum that wasattached to the anterior abdominal wall was taken down with both sharp andblunt dissection and bleeders were cauterized with electrocautery. Oncethe entire abdominal wall was cleared of the omentum, the mesh was removedon both the right and the left side of the abdomen without difficulty. Thefascia was left intact. Once the mesh was removed, there was a largehernia, suprapubic, in the lower abdomen. The hernia sac was dissected offthe subcutaneous tissue. Skin flaps were made elevating the skin andsubcutaneous tissue off of the fascia. The fascia appeared to be able tocome together in the midline without difficulty. The largest defect wasbelow the previous fascia. Once the skin and subcutaneous flaps were takenoff of the mesh, a [address] mesh was placed intra-abdominallyand secured in its periphery with number one Prolene mattress sutures. Thenative fascia was closed without tension in the midline with a number oneProlene [id number] sutures. The abdomen had copiously been irrigatedwith saline. Subcutaneous tissue was irrigated with saline. Two 10-mmflat drains were brought out through separate stab incisions in the rightand left abdomen. It was secured to the skin with 2-0 nylon sutures. Thesubcutaneous tissue and scar tissue was approximated with 2-0 chromicsuture. Skin was closed with mamdaou. A Prevena dressing was applied.Estimated blood loss was 200 cc. Sponge and needle counts reportedcorrect. The patient was administered bilateral TAP block by Anesthesia,Dr. Quevedo. Dr. Quevedo obtained consent by the patient's and a phoneconsent given the fact that this was not discussed preop.DICTATED BY: FRANCO Cornejoictated: 03/13/2021 11:35DT: 03/13/2021 11:40Job #: [id number]: Zuleyka Mirza MDNOTE: [facility] computer generated reports are not confirmed orauthenticated unless they are signed by the providerElectronically Authenticated and Edited by:ABRAHAM PADILLA MD On 03/13/2021 03:01 PM EDT Name Value Range Interpretation Code Description Data Deanna rce(s) Supporting Document(s) ID Date Data Source [id number] 03/13/2021 12:10:34 PM EDT [facility] Name Value Range Interpretation Code Description Data Deanna rce(s) Supporting Document(s) POC GLUCOSE 165 mg/dL (70-99) H [facility] NOTIFIED PROVIDERPERFORMED BY CLINICA L STAFF ID Date Data Source [id number] 03/13/2021 12:10:29 PM EDT [facility] Name Value Range Interpretation Code Description Data Deanna rce(s) Supporting Document(s) POC GLUCOSE 148 mg/dL (70-99) H [facility] NOTIFIED PROVIDERPERFORMED BY CLINICA L STAFF ID Date Data Source [id number] 03/13/2021 08:14:54 AM EDT [facility] Name Value Range Interpretation Code Description Data Deanna rce(s) Supporting Document(s) POC GLUCOSE 175 mg/dL (70-99) H [facility] PERFORMED BY CLINICAL STAFF ID Date Data Source [id number] 03/13/2021 07:48:38 AM EDT [facility] Name Value Range Interpretation Code Description Data Deanna rce(s) Supporting Document(s) POC GLUCOSE 194 mg/dL (70-99) H [facility] PERFORMED BY CLINICAL STAFF ID Date Data Source [id number] 03/13/2021 12:58:29 PM EDT [facility] Name Value Range Interpretation Code Description Data Deanna rce(s) Supporting Document(s) POC GLUCOSE 208 mg/dL (70-99) H [facility] NOTIFIED NURSEPERFORMED BY CLINICAL S TAFF ID Date Data Source [id number] 03/13/2021 07:20:03 AM EDT [facility] Name Value Range Interpretation Code Description Data Deanna rce(s) Supporting Document(s) HEMOGLOBIN A1C @ 6.8 % (4.0-6.0) H [facility] Performed using Siemens [place] immunoassa y.Care must be taken when interpreting XwO0pcarmadp in patients with a hemoglobin variantor decreased erythrocyte lifespan. Values 5.7 - 6.4% suggest prediabetes.Values >=6.5% are diagnostic for diabetes.REFERENCE: DIABETES CARE 2018: 41(S13-S27).PERFORMED AT [address] [place] [address] EST AVERAGE GLUCOSE 148 mg/dL [facility] ID Date Data Source [id number] 03/13/2021 07:15:16 AM EDT [facility] Name Value Range Interpretation Code Description Data Deanna rce(s) Supporting Document(s) SODIUM 146 mmol/L (136-145) H [facility] POTASSIUM 4.5 mmol/L (3.6-5.2) [facility] CHLORIDE 116 mmol/L (100-108) H [facility] CO2 22 mmol/L (22-31) [facility] ANION GAP 8 mmol/L (7-16) [facility] UREA NITROGEN 39 mg/dL (7-24) H [facility] CREATININE 1.74 mg/dL (0.80-1.30) H [facility] BUN/CREAT RATIO 22.4 RATIO (10.0-20.0) H [facility] GLUCOSE 232 mg/dL (70-99) H [facility] CALCIUM 8.6 mg/dL (8.4-10.2) [facility] GFR 39 ml/min/1.73m2 (>59) L [facility] GFR ( AMER) 48 ml/min/1.73m2 (>59) L [facility] GFR INTERPRETATION [facility] --NORMAL KIDNEY FUNCTION OR MILD DISEASE - GFR >OR= 60CHRONIC KIDNEY DISEASE - GFR 15 - 59RENAL FAILURE - GFR <15 Est. GFR calculation based on the MDRDstudy equation, which assumes a steadystate for creatinine. Est. GFR should notbe used for medication dosing. ID Date Data Source [id number] 03/01/2021 10:05:00 AM EDT [facility] Name Value Range Interpretation Code Description Data Deanna rce(s) Supporting Document(s) BASIC METABOLIC PANEL [facility] BASIC METABOLIC PANEL Sodium [Moles/volume] in Serum or Plasma 144 mEq/L 136 - 145 [facility] Potassium [Moles/volume] in Serum or Plasma 4.3 mEq/L 3.5 - 5.1 [facility] Chloride [Moles/volume] in Serum or Plasma 109 mEq/L 98 - 107 Above high normal [facility] Carbon dioxide, total [Moles/volume] in Serum or Plasma 22.8 mEq /L 21.0 - 32.0 [facility] Glucose [Mass/volume] in Serum or Plasma 216 mg/dL 70 - 100 Above high normal [facility] Urea nitrogen [Mass/volume] in Serum or Plasma 52 mg/dL 7 - 18 Above upper panic limits [facility] CALLED TO: RHONDA Brandon @ [phone] [facility] REP/VERIFIED REPEATED TO CONFIRM [facility] READ BACK YES [facility] CREATININE SERUM 2.39 mg/dL 0.70 - 1.30 Above high normal [facility] AGE 66 yrs [employer] l eGFR NON-AFR AMR 27 [facility] eGFR AFR AMR 33 [facility] ital BUN/CREAT 22 6 - 25 [facility] [facility] Calcium [Mass/volume] in Serum or Plasma 7.9 mg/dL 8.8 - 10.2 Below low normal [facility] ANION GAP 12 7 - 15 [facility] [facility] Estimated GFR reference r sandra: > 60 mL/min/1.73m >18 years: Calculated using IDMS traceable MDRD Study Equation <18 years: Calculated using IDMS traceable [facility] [place] Equation ID Date Data Source [id number] 03/01/2021 10:05:00 AM EDT [facility] PROTHROMBIN TIME Name Value Range Interpretation Code Description Data Deanna rce(s) Supporting Document(s) WARFARIN? NO [facility] l 17.8 INR in Platelet poor plasma by Coagulation assay 1.5 1.0 - 4.5 [facility] Reference ranges Warf javi (Coumadin) Therapy: 21.6 - 40.7 secs Normal (Non-warfarin Therapy): 10.7 - 15.2 secs New Protime Reference Range as of August 11, 2020 ID Date Data Source [id number] 03/01/2021 10:05:00 AM EDT [facility] Name Value Range Interpretation Code Description Data Deanna rce(s) Supporting Document(s) [facility] Leukocytes [#/volume] in Blood by Automated count 5.4 K/uL 4.0 - 10 .0 [facility] Erythrocytes [#/volume] in Blood by Automated count 3.70 M/uL 4.30 - 6.10 Below low normal [facility] Hemoglobin [Mass/volume] in Blood 11.4 g/dL 13.5 - 17.5 Below low no rmal [facility] Hematocrit [Volume Fraction] of Blood by Automated count 36.2 % 39.0 - 50.0 Below low normal [facility] Erythrocyte mean corpuscular volume [Entitic volume] by Auto mated count 97.8 fL 80.0 - 96.0 Above high normal [facility] Erythrocyte mean corpuscular hemoglobin [Entitic mass] by Automated count 30.8 pg 26.0 - 34.0 [facility] Erythrocyte mean corpuscular hemoglobin concentration [Mass/volume] by Automated count 31.5 g/dL 32.0 - 36.0 Below low normal [facility] johnny Erythrocyte distribution width [Ratio] by Automated count 15.9 % 11.6 - 14.8 Above high normal [facility] Platelets [#/volume] in Blood by Automated count 131 K/uL 150 - 450 Below low normal [facility] Platelet mean volume [Entitic volume] in Blood by Automated count 9.9 fL 7.1 - 10.4 [facility] Neutrophils [#/volume] in Blood by Automated count 3.49 K/uL 1.70 - 7.70 [facility] Lymphocytes [#/volume] in Blood by Automated count 1.20 K/uL 1.50 - 6.00 Below low normal [facility] Monocytes [#/volume] in Blood by Automated count 0.48 K/uL 0.00 - 1. 00 [facility] Eosinophils [#/volume] in Blood by Automated count 0.19 K/uL 0.00 - 0.30 [facility] Basophils [#/volume] in Blood by Automated count 0.02 K/uL 0.00 - 0. 10 [facility] 0.01 Urinalysis macro (dipstick) panel - Urine 0.000 10^3/uL 0.000 - 0.012 [facility] Neutrophils/100 leukocytes in Blood by Automated count 64.7 % 42. 2 - 75.2 [facility] Lymphocytes/100 leukocytes in Blood by Automated count 22.3 % 15. 0 - 41.0 [facility] Monocytes/100 leukocytes in Blood by Automated count 8.9 % 0.0 - 12.0 [facility] Eosinophils/100 leukocytes in Blood by Automated count 3.5 % 0.0 - 7.0 [facility] 0.40.20 NRBC 0.0 % [facility] MANUAL DIFF NOT INDICATED [facility] RBC MORPH NOT INDICATED [facility] ID Date Data Source [id number] 02/21/2021 12:26:00 PM EDT [facility] Name Value Range Interpretation Code Description Data Deanna rce(s) Supporting Document(s) Thyroxine (T4) free [Mass/volume] in Serum or Plasma 1.66 ng/dL 0.89- 1.80 [facility] ([facility]) Thyrotropin [Units/volume] in Serum or Plasma 3.622 mIU/ml 0.350-5.50 0 [facility] ([facility]) Natriuretic peptide B [Mass/volume] in Serum or Plasma 2118.0 pg /mL 0-100 Record coming over is a correction and thus replaces a final result [facility] ([facility]) Results Confirmed by Repeat Analysis. Results faxed at [phone] 02/22/21 kk called to Xuan at [phone] 02/22/21 kk Venipuncture Laboratory test result [facility] ([facility]) ID Date Data Source [id number] 02/21/2021 12:26:00 PM EDT [facility] ([facility] Name Value Range Interpretation Code Description Data Deanna rce(s) Supporting Document(s) WBC. 6.06 x10E3/uL 4.2-12.0 [facility] ([facility]) Erythrocytes [#/volume] in Blood by Automated count 3.93 x10E6/u L 4.4-6.0 Below low normal [facility] ([facility]) Hematocrit [Volume Fraction] of Blood by Automated count 39.5 % 3 9-52 [facility] ([facility]) Hemoglobin [Mass/volume] in Blood 12.1 g/dL 13.8-18.0 Below low nor mal [facility] ([facility]) MCV 100.5 fL 80-98 Above high normal [facility] ([facility]) MCHC 30.7 g/dL 32-36 Below low normal [facility] ([facility]) RDW 18.2 % 11.2-15.2 Above high normal [facility] ([facility]) MCH 30.8 pg 27-33 [facility]) Platelets [#/volume] in Blood by Automated count 157 x10E3/uL 135-420 [facility] ([facility]) MPV 8.5 fL 7.0-12.3 [facility]) % Keesha 66.8 % 41.0-80.0 [facility]) %Lym 23.1 % 10.0-45.2 [facility] ([facility]) %[place] 7.2 % 2.0-13.0 [facility] ([facility]) Eosinophils [#/volume] in Blood by Automated count 2.8 % 0.0-8.0 [facility] ([facility]) Neut 4.1 x10E3/uL 2.0-8.1 [facility] Lymp 1.4 x10E3/uL 0.6-3.1 [facility] %Baso 0.2 % 0.0-3.0 [facility] ([facility]) [place] 0.4 x10E3/uL 0.0-1.0 [facility] Eos 0.2 x10E3/uL 0.0-0.6 [facility] Baso 0.0 x10E3/uL 0.0-0.2 [facility] ID Date Data Source [id number] 02/21/2021 12:26:00 PM EDT [facility] ([facility]) Name Value Range Interpretation Code Description Data Deanna rce(s) Supporting Document(s) Glucose [Mass/volume] in Serum or Plasma 238 mg/dL 74-106 Above high normal [facility] ([facility]) [place] [employer] (ADA) Recommended Range is 65-99 mg/dL Sodium [Moles/volume] in Serum or Plasma 142 mmol/L 136-145 [facility] ([facility]) Results Confirmed by Repeat Analysis. Creatinine [Mass/volume] in Serum or Plasma 2.1 mg/dL 0.5-1.3 Above high normal [facility] ([facility]) Urea nitrogen [Moles/volume] in Serum or Plasma 54 mg/dL 6-20 Record coming over is a correction and thus replaces a final result [facility] ([facility]) Results Confirmed by Repeat Analysis. Results faxed at [phone] 02/22/21 kk Chloride [Moles/volume] in Serum or Plasma 104 mmol/L 98-107 [facility] ([facility]) Potassium [Moles/volume] in Serum or Plasma 4.7 mmol/L 3.5-5.3 [facility] ([facility]) Carbon dioxide, total [Moles/volume] in Serum or Plasma 25 meq/L 20 -31 [facility] ([facility]) eGFR-male 32 mL/m/1.73m [facility]) eGFR-Aa male 38 mL/m/1.73m [facility] ([facility]) <content>Normal Kidney Function or Mild Disease GFR >59 mL/min/1.73m2</content>
<content>Chronic Kidney Disease GFR 15-59 mL/min/1.73m2</content>
<content>Renal Failure GFR <15 mL/min/1.73m2</content>
<content></content> Anion Gap 13 mmol/L 7-16 [facility] ([facility]) Alkaline phosphatase [Enzymatic activity/volume] in Serum or Plasma 96 U/L 46-116 [facility] ([facility]) Alanine aminotransferase [Enzymatic activity/volume] in Seru m or Plasma 53 U/L 4-36 Above high normal [facility]) Effective 03/22/2017: [employer] has indicated interference with the drugs sulfasalazine and sulfapyridine. They suggest collection should occur prior to drug administration due to falsely depressed results. Aspartate aminotransferase [Enzymatic activity/volume] in Serum or Plasma 37 U/L 8-33 Above high normal [facility] ([facility]) Protein [Mass/volume] in Serum or Plasma 7.5 g/dL 6.4-8.3 [facility] ([facility]) Results may reflect a potential interfer ence in Total Protein results in patients receiving dextran as blood volume expanders. Bilirubin.total [Mass/volume] in Serum or Plasma 0.8 mg/dL 0.3-1.2 [facility] ([facility]) Globulin [Mass/volume] in Serum by calculation 3.1 g/dL 1.9-3.7 [facility] ([facility]) Albumin [Mass/volume] in Serum or Plasma 4.4 g/dL 3.6-5.1 [facility] ([facility]) Albumin/Globulin [Mass Ratio] in Serum or Plasma 1.4 Ratio 1.0-2.0 [facility] ([facility]) Calcium [Mass/volume] in Serum or Plasma 9.6 mg/dL 8.9-10.5 [facility] ([facility]) ID Date Data Source [id number] 02/21/2021 12:26:00 PM EDT [facility] ([facility]) Name Value Range Interpretation Code Description Data Deanna rce(s) Supporting Document(s) Lactate dehydrogenase [Enzymatic activit y/volume] in Serum or Plasma by Lactate to pyruvate reaction 252 U/L 120-246 Above high normal [facility] ([facility]) Urate [Mass/volume] in Serum or Plasma 8.5 mg/dL 2.6-7.2 Above hi gh normal [facility] ([facility]) Phosphate [Moles/volume] in Serum or Plasma 4.1 mg/dL 2.7-4.5 [facility] ([facility]) 02/28/2020-According to [employer] Blood mojio mples from some patients with monoclonal gammopathies may produce falsely elevated phosphorous results with this assay. ID Date Data Source [id number] 02/21/2021 12:29:00 PM EDT [facility] FRONTAL AND LATERAL CHEST TWO VIEWS KAMAR CATION: CONGESTIVE HEART FAILURE.. Unspecified systolic congestive heart failure Per technologist shortness of breath and heart arrhythmia per patientCOMPARISON: 12/14/2020 and older dating back to 09/20/2019 FINDINGS: Sternotomy. Pacer defibrillator. No indication of lead discontinuity or displacement. No mediastinal or hilar masses. Heart size within normal limits and unchanged. There is minimally increased parenchymal density in the lung bases relative to prior right greater than left. This is associated with slightly lower inspiratory volume and likely represents atelectasis. The upper lungs demonstrate no interstitial edema or abnormal vascular congestion. There is no focal regional parenchymal opacity to suggest pneumonia. No pleural effusions or pneumothorax. Mild to moderate thoracic degenerative disc change. IMPRESSION: Slightly lower inspiratory volume relative to prior with increased basilar density likely atelectasis. No radiographic changes to suggest congestive heart failure or other etiology for reported symptoms. D3 Name Value Range Interpretation Code Description Data Deanna rce(s) Supporting Document(s) ID Date Data Source [id number] 01/18/2021 04:49:06 PM EDT [address] [address]Ply# Surgical Pathology ReportPatient Name: JAMAR WILSON: 4Accession #:[id number](s) ReceivedA: Descending colon polypClinical Diagnosis and HistoryColon polypDIAGNOSISDESCENDING COLON, BIOPSY: TUBULAR ADENOMA Gross DescriptionReceived in formalin labeled "descending colon polyp" is a 0.6 cm jones-pinklobulated polypoid fragment of tissue. Entirely submitted as A1. Multilevel. jgllmr/ixt Reported: 01/18/2021Electronically Signed Out By Rebekah Perdomo MD [facility] [place] [id number] component performed at [facility], Histopathology, [address] [place] [address], [phone].Reported at [facility], [address] [place] [address], [phone]. This report may includeimmunohistochemical or in-situ hybridization results. Testing wasdeveloped and the performance characteristics determined by [facility] as required by CLIA '88. The FDA hasdetermined that approval for specific use is not necessary for clinicaluse. The quality of Hematoxylin and Eosin stains and as applicable, forall immunohistochemical and/or special stains, including positive andnegative controls, were reviewed and considered appropriate.ICD codes K63.5CPT codesA: 10735F Name Value Range Interpretation Code Description Data Deanna rce(s) Supporting Document(s) ID Date Data Source [id number] 01/16/2021 10:05:00 AM EDT [facility] NT INFORMATIONPatient MRN Name Date of Age Gend*PT [id number] Jamar Wilson 1955 65 years M OPPT Location Admission Date/Time [facility] [place] [facility] 0746 --- Abraham Thomas MD([id number]) EPI ID CSN Admitting Provider [id number] Abraham Thomas MD([id number])Colonoscopy Procedure NotePatient: Jamar Orta Cynthiaurgery Date: 01/16/2021urgeon(s):Abraham Thomas MDPre-Procedure Diagnosis:Personal History of PolypsPost Procedure Diagnosis :Polypectomy descending colonSedation:Department of AnesthesiaProcedure: ColonoscopyProcedure Details:The patient was monitored per endoscopy protocol. The colonoscope was advancedunder direct visualization to the cecum. The quality of the colonic preparationwas adequate. A careful inspection was made as the colonoscope was withdrawn.Examination of the colon revealed a small flat polyp in the descending colonwhich was resected and retrieved with hot snare. After completion of theexamination, the patient was transferred to the recovery room in stablecondition.Grafts and implants NoneBlood loss NoneComplications NoneImpression: Descending colon polypPlan: Await pathology, colonoscopy in 5 years..Abraham Thomas MD110:03 AM Name Value Range Interpretation Code Description Data Deanna rce(s) Supporting Document(s) ID Date Data Source [id number] 01/16/2021 08:23:32 AM EDT [facility] [place] Name Value Range Interpretation Code Description Data Deanna rce(s) Supporting Document(s) POC NOVA GLU 171 mg/dL (70-99) H [facility] Jim AZEVEDO PERFORMED BY [facility] CLINICAL STAFF ID Date Data Source [id number] 01/11/2021 09:15:00 AM EDT [facility] Name Value Range Interpretation Code Description Data Deanna rce(s) Supporting Document(s) SARS coronavirus 2 RNA Not Detected [facility] [place] This lab was ordered by [facility] and reported by [facility]. ID Date Data Source [id number] 01/11/2021 09:15:00 AM EDT [facility] Name Value Range Interpretation Code Description Data Deanna rce(s) Supporting Document(s) SARS COV2 [facility] _SARS CoV2 [id number], NAAReport ed: 01/12/2021 20:05 Status=F RESULT FLAG RANGE UNITS SC --SARS-CoV-2, JASMINE Not Detected Not Detected [facility] 01/12/21.2005.[email or web address].LCTRThis nucleic acid amplification test was developed and its performancecharacteristics determined by [facility]. Nucleic acidamplification tests include RT-PCR and TMA. This test has not beenFDA cleared or approved. This test has been authorized by FDA underan Emergency Use Authorization (EUA). This test is only authorizedfor the duration of time the declaration that circumstances existjustifying the authorization of the emergency use of in vitrodiagnostic tests for detection of SARS-CoV-2 virus and/or diagnosisof COVID-19 infection under section 564(b)(1) of the Act, 21 U.S.C.360bbb-3(b) (1), unless the authorization is terminated or revokedsooner.When diagnostic testing is negative, the possibility of a falsenegative result should be considered in the context of a patient'srecent exposures and the presence of clinical signs and symptomsconsistent with COVID- 19. An individual without symptoms of COVID-19and who is not shedding SARS-CoV-2 virus would expect to have anegative (not detected) result in this assay.SARS-CoV-2, JASMINE 2 DAY TATReported: 01/12/2021 20:05 Status=F --------TEST RESULT FLAG RANGE UNITS SC --SARS-CoV-2, JASMINE 2 DAY TAT Performed RN 01/12/21.2004.[email or web address].LCTRNO MATCH FOUND IN SITE CODE REF TABLE FOR EGLCORN Test performed by: [facility] [address] [address] Amy Burciaga MD ID Date Data Source [id number] 01/09/2021 09:05:00 AM EDT [facility] Name Value Range Interpretation Code Description Data Edanna rce(s) Supporting Document(s) Natriuretic peptide B [Mass/volume] in Serum or Plasma 6738 PG/M L 0 - 125 Above high normal [facility] Testing methodology changed t o chemiluminscent immunoassay based on [employer] technology. Effective 04/28/18. ID Date Data Source [id number] 01/09/2021 09:05:00 AM EDT [facility] Name Value Range Interpretation Code Description Data Deanna rce(s) Supporting Document(s) BASIC METABOLIC PANEL [facility] BASIC METABOLIC PANEL Sodium [Moles/volume] in Serum or Plasma 138 mEq/L 136 - 145 [facility] Potassium [Moles/volume] in Serum or Plasma 4.3 mEq/L 3.5 - 5.1 [facility] Chloride [Moles/volume] in Serum or Plasma 103 mEq/L 98 - 107 [facility] Carbon dioxide, total [Moles/volume] in Serum or Plasma 23.9 mEq /L 21.0 - 32.0 [facility] Glucose [Mass/volume] in Serum or Plasma 241 mg/dL 70 - 100 Above high normal [facility] Urea nitrogen [Mass/volume] in Serum or Plasma 50 mg/dL 7 - 18 Above high normal [facility] CREATININE SERUM 1.89 mg/dL 0.70 - 1.30 Above high normal [facility] AGE 65 yrs [employer] l eGFR NON-AFR AMR 36 [facility] eGFR AFR AMR 43 [facility] ital BUN/CREAT 26 6 - 25 Above high normal [facility] Calcium [Mass/volume] in Serum or Plasma 8.5 mg/dL 8.8 - 10.2 Below low normal [facility] ANION GAP 11 7 - 15 [facility] Estimated GFR reference r sandra: > 60 mL/min/1.73m >18 years: Calculated using IDMS traceable MDRD Study Equation <18 years: Calculated using IDMS traceable [facility] [place] Equation ID Date Data Source [id number] 01/09/2021 09:05:00 AM EDT [facility] Name Value Range Interpretation Code Description Data Deanna rce(s) Supporting Document(s) FERRITIN 175 ng/mL 26 - 388 [facility] ID Date Data Source [id number] 01/09/2021 09:05:00 AM EDT [facility] Name Value Range Interpretation Code Description Data Deanna rce(s) Supporting Document(s) IRON AND TIBC PROFILE [facility] IRON PROFILE Iron [Mass/volume] in Serum or Plasma 50 ug/mL 65 - 175 Below low normal [facility] Iron binding capacity [Mass/volume] in Serum or Plasma 300 ug/dL 250 - 450 [facility] IRON SAT 17 % [facility] ID Date Data Source [id number] 01/09/2021 09:05:00 AM EDT [facility] Name Value Range Interpretation Code Description Data Deanna rce(s) Supporting Document(s) CBC [employer] l COMPLETE BLOOD COUNT Leukocytes [#/volume] in Blood by Automated count 6.5 K/uL 4.0 - 10 .0 [facility] Erythrocytes [#/volume] in Blood by Automated count 3.95 M/uL 4.30 - 6.10 Below low normal [facility] Hemoglobin [Mass/volume] in Blood 11.2 g/dL 13.5 - 17.5 Below low no rmal [facility] Hematocrit [Volume Fraction] of Blood by Automated count 35.8 % 39.0 - 50.0 Below low normal [facility] Erythrocyte mean corpuscular volume [Entitic volume] by Auto mated count 90.6 fL 80.0 - 96.0 [facility] Erythrocyte mean corpuscular hemoglobin [Entitic mass] by Automated count 28.4 pg 26.0 - 34.0 [facility] Erythrocyte mean corpuscular hemoglobin concentration [Mass/volume] by Automated count 31.3 g/dL 32.0 - 36.0 Below low normal [facility] johnny Erythrocyte distribution width [Ratio] by Automated count 24.6 % 11.6 - 14.8 Above high normal [facility] Platelets [#/volume] in Blood by Automated count 169 K/uL 150 - 450 [facility] Platelet mean volume [Entitic volume] in Blood by Automated count 8.7 fL 7.1 - 10.4 [facility] Neutrophils [#/volume] in Blood by Automated count 4.27 K/uL 1.70 - 7.70 [facility] Lymphocytes [#/volume] in Blood by Automated count 1.45 K/uL 1.50 - 6.00 Below low normal [facility] Monocytes [#/volume] in Blood by Automated count 0.52 K/uL 0.00 - 1. 00 [facility] Eosinophils [#/volume] in Blood by Automated count 0.18 K/uL 0.00 - 0.30 [facility] Basophils [#/volume] in Blood by Automated count 0.03 K/uL 0.00 - 0. 10 [facility] 0.02 Urinalysis macro (dipstick) panel - Urine 0.000 10^3/uL 0.000 - 0.012 [facility] Neutrophils/100 leukocytes in Blood by Automated count 66.0 % 42. 2 - 75.2 [facility] Lymphocytes/100 leukocytes in Blood by Automated count 22.4 % 15. 0 - 41.0 [facility] Monocytes/100 leukocytes in Blood by Automated count 8.0 % 0.0 - 12.0 [facility] Eosinophils/100 leukocytes in Blood by Automated count 2.8 % 0.0 - 7.0 [facility] 0.50.30 NRBC 0.0 % [facility] NOT INDICATED [facility] RBC MORPH NOT INDICATED [facility] pital ID Date Data Source [id number] 12/30/2020 06:15:39 PM EDT [facility] Name Value Range Interpretation Code Description Data Deanna rce(s) Supporting Document(s) Provider Note [facility] pital [id number] vYm [file] [id number] PERFORMANCE [id number]/[id number] [file] [id number]== ID Date Data Source [id number] 12/29/2020 05:55:00 PM EDT [facility] Name Value Range Interpretation Code Description Data Deanna rce(s) Supporting Document(s) CBC [employer] l COMPLETE BLOOD COUNT Leukocytes [#/volume] in Blood by Automated count 4.7 K/uL 4.0 - 10 .0 [facility] Erythrocytes [#/volume] in Blood by Automated count 3.56 M/uL 4.30 - 6.10 Below low normal [facility] Hemoglobin [Mass/volume] in Blood 9.8 g/dL 13.5 - 17.5 Below low no rmal [facility] Hematocrit [Volume Fraction] of Blood by Automated count 31.1 % 39.0 - 50.0 Below low normal [facility] Erythrocyte mean corpuscular volume [Entitic volume] by Auto mated count 87.4 fL 80.0 - 96.0 [facility] Erythrocyte mean corpuscular hemoglobin [Entitic mass] by Automated count 27.5 pg 26.0 - 34.0 [facility] Erythrocyte mean corpuscular hemoglobin concentration [Mass/volume] by Automated count 31.5 g/dL 32.0 - 36.0 Below low normal [facility] Erythrocyte distribution width [Ratio] by Automated count 23.0 % 11.6 - 14.8 Above high normal [facility] Platelets [#/volume] in Blood by Automated count 147 K/uL 150 - 450 Below low normal [facility] Platelet mean volume [Entitic volume] in Blood by Automated count 9.2 fL 7.1 - 10.4 [facility] Neutrophils [#/volume] in Blood by Automated count 2.94 K/uL 1.70 - 7.70 [facility] Lymphocytes [#/volume] in Blood by Automated count 1.26 K/uL 1.50 - 6.00 Below low normal [facility] Monocytes [#/volume] in Blood by Automated count 0.38 K/uL 0.00 - 1. 00 [facility] Eosinophils [#/volume] in Blood by Automated count 0.14 K/uL 0.00 - 0.30 [facility] Basophils [#/volume] in Blood by Automated count 0.01 K/uL 0.00 - 0. 10 [facility] 0.01 Urinalysis macro (dipstick) panel - Urine 0.000 10^3/uL 0.000 - 0.012 [facility] Neutrophils/100 leukocytes in Blood by Automated count 62.0 % 42. 2 - 75.2 [facility] Lymphocytes/100 leukocytes in Blood by Automated count 26.6 % 15. 0 - 41.0 [facility] Monocytes/100 leukocytes in Blood by Automated count 8.0 % 0.0 - 12.0 [facility] Eosinophils/100 leukocytes in Blood by Automated count 3.0 % 0.0 - 7.0 [facility] 0.20.20 NRBC 0.0 % [facility] NOT INDICATED [facility] RBC MORPH NOT INDICATED [facility] ID Date Data Source [id number] 12/22/2020 07:45:00 AM EDT [facility] Name Value Range Interpretation Code Description Data Deanna rce(s) Supporting Document(s) BASIC METABOLIC PANEL [facility] BASIC METABOLIC PANEL Sodium [Moles/volume] in Serum or Plasma 142 mEq/L 136 - 145 [facility] Potassium [Moles/volume] in Serum or Plasma 4.2 mEq/L 3.5 - 5.1 [facility] Chloride [Moles/volume] in Serum or Plasma 107 mEq/L 98 - 107 [facility] Carbon dioxide, total [Moles/volume] in Serum or Plasma 23.0 mEq /L 21.0 - 32.0 [facility] Glucose [Mass/volume] in Serum or Plasma 130 mg/dL 70 - 100 Above high normal [facility] Urea nitrogen [Mass/volume] in Serum or Plasma 65 mg/dL 7 - 18 Above upper panic limits [facility] CALLED TO: [facility]IF[facility] 64 [facility] READ BACK YES [facility] CREATININE SERUM 1.79 mg/dL 0.70 - 1.30 Above high normal [facility] AGE 65 yrs [facility] l eGFR NON-AFR AMR 38 [facility] eGFR AFR AMR 46 [facility] BUN/CREAT 36 6 - 25 Above high normal [facility] Calcium [Mass/volume] in Serum or Plasma 8.2 mg/dL 8.8 - 10.2 Below low normal [facility] ANION GAP 12 7 - 15 [facility] Estimated GFR reference r sandra: > 60 mL/min/1.73m >18 years: Calculated using IDMS traceable MDRD Study Equation <18 years: Calculated using IDMS traceable Bedside [place] Equation ID Date Data Source [id number] 12/22/2020 07:45:00 AM EDT [facility] Name Value Range Interpretation Code Description Data Deanna rce(s) Supporting Document(s) Natriuretic peptide B [Mass/volume] in Serum or Plasma 2722 PG/M L 0 - 125 Above high normal [facility] Testing methodology changed t o chemiluminscent immunoassay based on Amarin technology. Effective 04/28/18. ID Date Data Source [id number] 12/15/2020 08:42:00 AM EDT [facility] [id number] SUSAN SUAREZESYEASTERN NEW [facility] MEDICAL [place], [place] [id number] NAME: JAMAR WILSONDATE OF : 4REPORT: DISCHARGE SUMMARYPATIENT NUMBER: [id number] STATUS: IPMEDICAL RECORD NUMBER: [id number] OF ADMISSION: 1DATE OF DISCHARGE: 1ROOM: 01This 65-year-old gentleman with known severe ischemic cardiomyopathy,ejection fraction of less than 20 percent, had a recent ablation, [facility] with an acute kidney injury, creatinine up to3.5 and a BUN up to 145. He had been on Lasix 80 b.i.d. He was seen, hadhis Lasix decreased to 40 mg b.i.d. and laboratory data was obtained oneday after that change in dosing. He was symptomatic with lethargy, somedegree of anorexia and had him come down, gave him a liter of saline thenran at 100 mL an hour. Held his diuretics. Held his *------*. His BUNfell progressively to 101 and then to 75. Creatinine came down to 2.25,then 1.64. He was getting hypoglycemic with the glyburide, that has beendiscontinued. His N-terminal proBNP was up to 3046. Chest x-ray showedcardiomegaly, but no interstitial edema. Lungs were clear. He felt well. Blood pressure was stable. We checked, he had recent iron-deficiencyanemia, so we joy iron panel. His ferritin was up to 210. His iron mfh458, iron sat was 37 percent. His TIBC was now low. We are dropping hisiron down to adjust 1 tablet a day. His hemoglobin was 10.6, hematocrit of30 with an MCV of 83, likely has anemia of chronic disease related to hisunderlying diabetic and hypertensive neph ropathy.These will be the medications upon discharge from the hospital: Allopurinol has been reduced from 300 to 100 mg a day, amiodarone 20 mg aday, apixaban 5 b.i.d., atorvastatin 40 a day, carvedilol 6.25 b.i.d.,vitamin D 1000 a day, digoxin has been discontinued, Colace 100 b.i.d.,Zetia 10 mg a day, ferrous sulfate 325 once a day, Lasix 40 mg b.i.d.,glyburide discontinued, glargine insulin 40 b.i.d., lorazepam one b.i.d.p.r.n. anxiety, nitro 0.4 sublingual, pantoprazole 40 mg a day, pramipexole0.5 mg each morning and 1 mg in the evening, i.e., two of the 0.5 mgtablets, Entresto is now half dose 49 - 51 b.i.d., Januvia 100 mg a day,spirolactone has been discontinued. In one week period of time the patientwill have a repeat basic metabolic profile and a BNP. I will see him in afour-week period of time. If he is stable at that junction we will giveDr. Mirza the okay to complete his colonoscopy. He will contact about his problem with the ongoing abdominal hernia.DISCHARGE DIAGN OSES:1. Acute kidney injury secondary to over diuresis in a patient who has recently been converted from atrial fibrillation to sinus rhythm with the use of both, ablation and amiodarone.2. Severe underlying ischemic cardiomyopathy with 20 percent *------*.3. Moderate mitral valve regurgitation.4. Diabetes mellitus.5. Hyperlipidemia.6. Stage IV chronic kidney disease.7. Long-term anticoagulant and high risk drug monitoring with Eliquis and amiodarone.8. Hernia.9. Iron-deficiency anemia.10. Restless leg syndrome.DICTATED BY: FRANCO Robbinsictated: 12/14/2020 9:12DT: 12/14/2020 9:22Job #: [id number] NOTE: [facility] computer generated reports are notconfirmed or authenticated unless they are signed by the providerElectronically Authenticated by:JUAN MIGUEL ABDUL MD On 12/15/2020 08:42 AM EDT Name Value Range Interpretation Code Description Data Deanna rce(s) Supporting Document(s) ID Date Data Source [id number] 12/14/2020 11:43:00 AM EDT [facility] DATE OF EXAM: 12/14/2020HEST RADIOGRAPH , SINGLE VIEW INDICATION: CONGESTIVE HEART FAILURE TECHNIQUE: Upright AP Portable view of the chest. COMPARISON: 11/02/2020. FINDINGS: Again visualized is a pacemaker/defibrillator and median sternotomy wires. Degenerative changes are seen throughout the spine. There is no evidence of pleural disease. The lungs are clear. The heart and mediastinal contours are unchanged. IMPRESSION: No acute disease. No convincing radiographic evidence for pulmonary edema. Professional interpretation performed at [facility] .End of diagnostic report for accession: [id number] Interpreted: Yudelka Solerribed: 12/14/2020 11:42 AMSigned: 12/14/2020 11:43 AM Yudelka Soler DO [facility] # [id number] BILL # [id number] Name Value Range Interpretation Code Description Data Deanna rce(s) Supporting Document(s) ID Date Data Source [id number] 12/14/2020 07:20:12 AM EDT [facility] Name Value Range Interpretation Code Description Data Deanna rce(s) Supporting Document(s) POC GLUCOSE 122 mg/dL (70-99) H [facility] NOTIFIED NURSEPERFORMED BY CLINICAL S TAFF ID Date Data Source [id number] 12/14/2020 08:05:04 AM EDT [facility] Name Value Range Interpretation Code Description Data Deanna rce(s) Supporting Document(s) NT PRO BNP 3486 pg/mL (0-125) H [facility] ID Date Data Source [id number] 12/14/2020 08:05:04 AM EDT [facility] Name Value Range Interpretation Code Description Data Deanna rce(s) Supporting Document(s) SODIUM 142 mmol/L (136-145) [facility] POTASSIUM 5.1 mmol/L (3.6-5.2) [facility] CHLORIDE 116 mmol/L (100-108) H [facility] CO2 20 mmol/L (22-31) L [facility] ANION GAP 6 mmol/L (7-16) L [facility] UREA NITROGEN 75 mg/dL (7-24) H [facility] CREATININE 1.64 mg/dL (0.80-1.30) H [facility] BUN/CREAT RATIO 45.7 RATIO (10.0-20.0) H [facility] GLUCOSE 122 mg/dL (70-99) H [facility] CALCIUM 8.3 mg/dL (8.4-10.2) L [facility] GFR 42 ml/min/1.73m2 (>59) L [facility] GFR ( AMER) 51 ml/min/1.73m2 (>59) L [facility] GFR INTERPRETATION [facility] --NORMAL KIDNEY FUNCTION OR MILD DISEASE - GFR >OR= 60CHRONIC KIDNEY DISEASE - GFR 15 - 59RENAL FAILURE - GFR <15 Est. GFR calculation based on the MDRDstudy equation, which assumes a steadystate for creatinine. Est. GFR should notbe used for medication dosing. ID Date Data Source [id number] 12/13/2020 08:48:37 PM EDT [facility] Name Value Range Interpretation Code Description Data Deanna rce(s) Supporting Document(s) POC GLUCOSE 164 mg/dL (70-99) H [facility] PERFORMED BY CLINICAL STAFF ID Date Data Source [id number] 12/13/2020 04:03:33 PM EDT [facility] Name Value Range Interpretation Code Description Data Deanna rce(s) Supporting Document(s) POC GLUCOSE 170 mg/dL (70-99) H [facility] NOTIFIED NURSEPERFORMED BY CLINICAL S TAF ID Date Data Source [id number] 12/13/2020 11:05:02 AM EDT [facility] Name Value Range Interpretation Code Description Data Deanna rce(s) Supporting Document(s) POC GLUCOSE 177 mg/dL (70-99) H [facility] PERFORMED BY CLINICAL STAFF ID Date Data Source [id number] 12/13/2020 07:34:12 AM EDT [facility] Name Value Range Interpretation Code Description Data Deanna rce(s) Supporting Document(s) POC GLUCOSE 144 mg/dL (70-99) H [facility] NOTIFIED NURSEPERFORMED BY CLINICAL S TAFF ID Date Data Source [id number] 12/13/2020 11:59:32 AM EDT [facility] Name Value Range Interpretation Code Description Data Deanna rce(s) Supporting Document(s) FERRITIN @ 210 ng/mL (26-388) [facility] ID Date Data Source [id number] 12/13/2020 08:56:45 AM EDT [facility] Name Value Range Interpretation Code Description Data Deanna rce(s) Supporting Document(s) SODIUM 139 mmol/L (136-145) [facility] POTASSIUM 5.0 mmol/L (3.6-5.2) [facility] CHLORIDE 110 mmol/L (100-108) H [facility] CO2 23 mmol/L (22-31) [facility] ANION GAP 6 mmol/L (7-16) L [facility] UREA NITROGEN 101 mg/dL (7-24) HH [facility] RESULT(S) [place] [id number] AT 0855 CREATININE 2.25 mg/dL (0.80-1.30) H [facility] BUN/CREAT RATIO 44.9 RATIO (10.0-20.0) H [facility] GLUCOSE 152 mg/dL (70-99) H [facility] CALCIUM 8.7 mg/dL (8.4-10.2) [facility] GFR 29 ml/min/1.73m2 (>59) L [facility] GFR ([facility] AM) 35 ml/min/1.73m2 (>59) L [facility] GFR INTERPRETATION [facility] --NORMAL KIDNEY FUNCTION OR MILD DISEASE - GFR >OR= 60CHRONIC KIDNEY DISEASE - GFR 15 - 59RENAL FAILURE - GFR <15 Est. GFR calculation based on the MDRDstudy equation, which assumes a steadystate for creatinine. Est. GFR should notbe used for medication dosing. ID Date Data Source [id number] 12/13/2020 08:12:39 AM EDT [facility] Name Value Range Interpretation Code Description Data Deanna rce(s) Supporting Document(s) WBC 4.1 10*3/uL (4.1-11.0) [facility] RBC 3.96 10*6/uL (4.60-6.10) L [facility] HGB 10.6 g/dL (13.5-18.0) L [facility] HCT 33.0 % (41.0-53.0) L [facility] MCV 83.3 fL (80.0-95.0) [facility] MCH 26.9 pg (27.0-32.0) L [facility] MCHC 32.3 g/dL (32.0-36.0) [facility] RDW 26.5 % (10.5-14.5) H [facility] PLT 122 10*3/uL (150-450) L [facility] MPV 8.4 fL (7.1-10.7) [facility] ID Date Data Source [id number] 12/13/2020 11:59:32 AM EDT [facility] Name Value Range Interpretation Code Description Data Deanna rce(s) Supporting Document(s) IRON,TOTAL @ 106 ug/dL (35-150) [facility] UIBC @ 180 ug/dL (130-375) [facility] TIBC @ 286 ug/dL (250-450) [facility] % SATURATION 37 % (12-50) [facility] [place] ID Date Data Source [id number] 12/13/2020 10:14:42 AM EDT [facility] Name Value Range Interpretation Code Description Data Deanna rce(s) Supporting Document(s) DIGOXIN 0.8 ng/mL (0.8-2.0) [facility] ID Date Data Source [id number] 12/12/2020 08:53:24 PM EDT [facility] Name Value Range Interpretation Code Description Data Deanna rce(s) Supporting Document(s) POC GLUCOSE 165 mg/dL (70-99) H [facility] NOTIFIED NURSEPERFORMED BY CH CLINICAL S TAFF ID Date Data Source [id number] 12/12/2020 06:24:27 PM EDT [facility] Name Value Range Interpretation Code Description Data Deanna rce(s) Supporting Document(s) POC GLUCOSE 190 mg/dL (70-99) H [facility] PERFORMED BY CLINICAL STAFF ID Date Data Source [id number] 12/12/2020 06:15:00 PM EDT [facility] Name Value Range Interpretation Code Description Data Deanna rce(s) Supporting Document(s) SARS coronavirus 2 RNA [Presence] in Res piratory specimen by JASMINE with probe detection NOT DETECTED [facility] This lab was reported by [facility]. ID Date Data Source [id number] 12/12/2020 09:34:03 PM EDT [facility] Name Value Range Interpretation Code Description Data Deanna rce(s) Supporting Document(s) SPECIMEN DESCRIPTION [facility] COVID19 RESULT (NDET) [facility] NEGATIVE COVID-19 RESULTS DONOT PRECLUDE COVID-2019 INFECTION ANDSHOULD NOT BE USED THE SOLE BASISFOR PATIENT MANAGEMENT DECISIONS.THIS ASSAY AMPLIFIES AND DETECTS THE TARGETRNA USING ISOTHERMAL HELICASE DEPENDENTAMPLIFICATION.TESTING PERFORMED ON THE [employer].THE U.[place] FDA HAS MADE THIS TEST AVAILABLEUNDER AN EMERGENCY USE AUTHORIZATION(EUA) FOR THE DETECTION AND/OR DIAGNOSISOF THE VIRUS THAT CAUSES COVID-19. FIRST TEST [facility] DATE OF [facility]T ONSET [facility] CONGREGATE CARE SET [facility] ID Date Data Source [id number] 12/15/2020 08:42:00 AM EDT [facility] [place] [id number] [place] [place], [place] [address]YDKHOAT NAME: JAMAR WILSONDATE OF : 4REPORT: ADMISSION NOTEPATIENT NUMBER: [id number] STATUS: IPMEDICAL RECORD NUMBER: [id number] OF ADMISSION: 1ROOM: 01Jamar Wilson has a severe ischemic cardiomyopathy, diabetes mellitus,dyslipidemia, hypertension in an ICD, recent ablation for AFib. He alsohad profound blood loss anemia, having a hemoglobin down to 5.9 withhematocrit of 20. He was transfused, given Venofer. There was a resultantimprovement in hemoglobin and hematocrit up to 11.1 and 35, seen on11/03/2020. He had a BUN of 48, creatinine 1.8. He has had some fluidretention, congestive heart failure due to chronic left ventricularsystolic dysfunction. He has had previous bypass surgery stenting of theLAD and circumflex systems. Saw Dr. Pacheco and follow-up yesterday with washed out tired. His blood pressure was okay. He had laboratory datadrawn. His BUN came back at 148. Creatinine was up to 3.5. Potassium was4.3, so he came to [facility]. My instruction is to hold all of his medication to receive a liter of saline wide open at 100 cc an hourovernight with a repeat check of renal function in the morning.On examination, mucous membranes are dry. Lungs are crystal clear. Neckveins were flat, 1/6 systolic murmur at the apex. No S3, S4 gallop. Theabdomen is scaphoid. There is zero peripheral edema.IMPRESSION AND PLAN: Acute kidney injury due to prerenal azotemia inducedby diuretics. The patient is back in sinus, heart is probably bit moreefficient, and he will need less diuretic going forward. His medicationsupon admission to the hospital have included allopurinol 300 mg a day,amiodarone 200 a day, apixaban 5 b.i.d., atorvastatin 40, carvedilol 6.25b.i.d., digoxin 125 mcg Friday, Friday, Friday, Colace 100 mg b.i.d.,ezetimibe 10 mg a day, ferrous sulfate 325 b.i.d., furosemide 40 b.i.d.,glyburide 5 b.i.d., glargine insulin 40 units twice a day, Ativan a mgb.i.d. p.r.n., nitro 0.4 sublingual p.r.n., pantoprazole 40, pramipexole0.5 each morning, Mirapex 1 mg at night, Entresto 97-103 b.i.d., Lctvgtk218 mg a day and spironolactone 25 mg a day.NOTE: Up to the time, they consulted Dr. Pacheco yesterday. He was takingtwo of the 40 mg tablets b.i.d. for a total of 160 mg a day. We will checkhis BNP in the morning along the basic metabolic profile. On 11/24/2020,the white count was 4, hemoglobin 11, hematocrit of 35.DICTATED BY: Juan Miguel Abdul, MDDictated: 12/12/2020 17:48DT: 12/12/2020 17:55Job #: [id number]: [facility] computer generated reports are notconfirmed or authenticated unless they are signed by the providerElectronically Authenticated by:JUAN MIGUEL ABDUL MD On 12/15 08:42 AM EDT Name Value Range Interpretation Code Description Data Deanna rce(s) Supporting Document(s) ID Date Data Source [id number] 12/11/2020 03:17:00 PM EDT [facility] Name Value Range Interpretation Code Description Data Deanna rce(s) Supporting Document(s) Venipuncture Laboratory test result [facility] ([facility]) ID Date Data Source [id number] 12/11/2020 03:17:00 PM EDT [facility] Name Value Range Interpretation Code Description Data Deanna rce(s) Supporting Document(s) WBC. 6.21 x10E3/uL 4.2-12.0 [facility] Hemoglobin [Mass/volume] in Blood 12.1 g/dL 13.8-18.0 Below low nor mal [facility] ([facility]) Erythrocytes [#/volume] in Blood by Automated count 4.42 x10E6/uL 4.4 -6.0 [facility] ([facility]) MCV 86.2 fL 80-98 [facility] Hematocrit [Volume Fraction] of Blood by Automated count 38.1 % 39-52 Below low normal [facility] ([facility]) MCH 27.5 pg 27-33 [facility] MCHC 31.9 g/dL 32-36 Below low normal [facility]) RDW 21.9 % 11.2-15.2 Above high normal [facility]) Platelets [#/volume] in Blood by Automated count 152 x10E3/uL 135-420 [facility] ([facility]) MPV 8.2 fL 7.0-12.3 [facility] % Keesha 73.1 % 41.0-80.0 [facility]) %[place] 5.8 % 2.0-13.0 [facility]) %Lym 18.5 % 10.0-45.2 [facility]) Eosinophils [#/volume] in Blood by Automated count 2.3 % 0.0-8.0 [facility] ([facility]) %Baso 0.2 % 0.0-3.0 [facility]) [place] 0.4 x10E3/uL 0.0-1.0 [facility]) Lymp 1.2 x10E3/uL 0.6-3.1 [facility]) Neut 4.5 x10E3/uL 2.0-8.1 [facility]) Eos 0.1 x10E3/uL 0.0-0.6 [facility]) Baso 0.0 x10E3/uL 0.0-0.2 [facility] ID Date Data Source [id number] 12/11/2020 03:17:00 PM EDT [facility]) Name Value Range Interpretation Code Description Data Daenna rce(s) Supporting Document(s) Glucose [Mass/volume] in Serum or Plasma 258 mg/dL 74-106 Above high normal [facility] ([facility]) [place] [employer] (ADA) Recommended Range is 65-99 mg/dL Creatinine [Mass/volume] in Serum or Plasma 3.5 mg/dL 0.5-1.3 Above high normal [facility] ([facility]) Urea nitrogen [Moles/volume] in Serum or Plasma 143 mg/dL 6-20 Record coming over is a correction and thus replaces a final result [facility] ([facility]) Results Confirmed on Dilution. Results Called To Yu 1200 12/12/20 ak [facility] and transmitted 1201 12/12/20 ak Potassium [Moles/volume] in Serum or Plasma 6.3 mmol/L 3.5- 5.3 Record coming over is a correction and thus replaces a final result [facility] ([facility]) Results Confirmed by Repeat Analysis. specimen not hemolyzed Results Called To Yu 1200 12/12/20 ak [facility] and transmitted 1201 12/12/20 ak Sodium [Moles/volume] in Serum or Plasma 134 mmol/L 136-145 Below low normal [facility] ([facility]) Results Confirmed by Repeat Analysis. Chloride [Moles/volume] in Serum or Plasma 102 mmol/L 98-107 [facility] ([facility]) Carbon dioxide, total [Moles/volume] in Serum or Plasma 20 meq/L 20 -31 [facility] ([facility]) eGFR-male 18 mL/m/1.73m [facility] Anion Gap 12 mmol/L 7-16 [facility]) eGFR-Aa male 21 mL/m/1.73m [facility]) <content>Normal Kidney Function or Mild Disease GFR >59 mL/min/1.73m2</content>
<content>Chronic Kidney Disease GFR 15-59 mL/min/1.73m2</content>
<content>Renal Failure GFR <15 mL/min/1.73m2</content>
<content></content> Calcium [Mass/volume] in Serum or Plasma 9.3 mg/dL 8.9-10.5 [facility] ([facility]) ID Date Data Source [id number] 12/15/2020 08:41:00 AM EDT [facility] [id number] [id number] NAME: JAMAR WILSONDATE OF : 4REPORT: DISCHARGE SUMMARYPATIENT NUMBER: [id number] STATUS: IPMEDICAL RECORD NUMBER: [id number] OF ADMISSION: 02/10/2021DATE OF DISCHARGE: 1ROOM: 02HOSPITAL COURSE: This is the patient who has had previous bypass,multivessel stenting, atrial fibrillation who was admitted for a scheduledablation. He had been having declining performance status at home. He hadblood work done upon admission to the hospital. He was taken to the lab. He has had an ablation done. It was recognized during the procedure thathe was profoundly anemic with hemoglobin of 5.9, hematocrit of 20, receiveda total of 3 units of packed red blood cells along with iron sucrose. Hewas diuresed, developed acute superimposed upon chronic exacerbation ofheart failure, was treated with intravenous diuretics. He has chronickidney disease. Hemoglobin mabel from 5.9 to 9, hematocrit from 20 to 28.8,platelet count was normal. He felt greatly improved post transfusion. Hereceived three 300 mg doses of IV Venofer. He clearly had aniron-deficiency anemia with a ferritin of 4, iron saturation of 3, serumiron of only 16, TIBC was elevated 490 and MCV was 72. He is a knowndiabetic. His creatinine was elevated to 2 came down to 1.8, BUN of 48falling from a high of 57. He was put on PPIs.He is on the medications upon discharge from the hospital: Allopurinol 300mg a day, amiodarone 200 mg a day, apixaban 5 mg b.i.d., atorvastatin halfof 80 mg tablet a day, carvedilol 6.25 b.i.d., digoxin 125 micrograms aday, ezetimibe 10 mg each evening, ferrous sulfate 324 three times a day,furosemide 80 mg b.i.d., glyburide 5 mg b.i.d., Lantus insulin 40 units aday, lorazepam 1 mg b.i.d. p.r.n., nitro 0.4 sublingual p.r.n., Mirapex 0.5mg each morning and 0.1 mg each evening, Entresto 97-103 one tablet b.i.d.,Januvia 100 mg a day, spirolactone 25 mg a day, Colace 100 mg a day,pantoprazole 40 mg a day. The patient was noted to have black stools forabout two to three times a month since 10/2020. His Plavix wasdiscontinued. We continue the Eliquis. His A1c was checked and found tiago 8.2. His stool guaiacs here interestingly found to be negative.DISCHARGE DIAGNOSES:1. Successful ablation for atrial fibrillation.2. Acute exacerbation of heart failure due to systolic dysfunction.3. Ischemic cardiomyopathy.4. Functioning ICD.5. Diabetes mellitus.6. Coronary artery disease, status post previous bypass and multivessel stenting.7. High-risk drug monitoring, antiplatelet agents and a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.8. Mitral regurgitation.9. Iron-deficiency anemia, requiring transfusion of 3 units of packed red blood cells.10. Stage IV chronic kidney disease due to diabetic nephropathy.DICTATED BY: FRANCO Robbinsictated: 12/07/2020 11:19DT: 12/07/2020 11:30Job #: [id number]: [facility] Nexeon generated reports are not confirmed orauthenticated unless they are signed by the providerElectronically Authenticated by:JUAN MIGUEL ABDUL MD On 12/15/2020 08:41 AM EDT Name Value Range Interpretation Code Description Data Deanna rce(s) Supporting Document(s) ID Date Data Source [id number] 11/29/2020 08:55:00 AM [place], [place] [address]PATIENT NAME: JAMAR WILSONDATE OF : 1955EPORT: OPERATIONPATIENT NUMBER: [id number] STATUS: SDMEDICAL RECORD NUMBER: [id number] ADMISSION: 11/24/2020ATE OF DISCHARGE:ROOM: 01DATE OF PROCEDURE: 11/24/2020INDICATION: Atrial fibrillation.PROCEDURE: Cardioversion.Under propofol anesthetic, the patient was shocked with 200 joules biphasicback to atrial paced, ventricular sensed rhythm. We are awaiting thepatient's return to a full level of consciousness at the time of thisdictation.IMPRESSION: Successful cardioversion.DICTATED BY: FRANCO Robbinsictated: 11/24/2020 8:50DT: 11/24/2020 9:01Job #: [id number]:NOTE: [facility] Nexeon generated reports are not confirmed orauthenticated unless they are signed by the providerElectronically Authenticated by:JUAN MIGUEL ABDUL MD On 11/29/2020 08:55 AM EST Name Value Range Interpretation Code Description Data Deanna rce(s) Supporting Document(s) ID Date Data Source [id number] 11/24/2020 08:34:13 AM EST [facility] Name Value Range Interpretation Code Description Data Deanna rce(s) Supporting Document(s) WBC 4.2 10*3/uL (4.1-11.0) [facility] [place] RBC 4.23 10*6/uL (4.60-6.10) L [facility] HGB 11.1 g/dL (13.5-18.0) L [facility] HCT 35.0 % (41.0-53.0) L [facility] PERFORMED AT [address] [address] MCV 82.8 fL (80.0-95.0) [facility] MCH 26.4 pg (27.0-32.0) L [facility] MCHC 31.8 g/dL (32.0-36.0) L [facility] RDW 28.0 % (10.5-14.5) H [facility] PLT 110 10*3/uL (150-450) L [facility] MPV 8.4 fL (7.1-10.7) [facility] NEUT % 56.7 % (35.0-75.0) [facility] LYMPH % 27.0 % (16.0-52.0) [facility] MONO % 10.8 % (0.0-8.0) H [facility] EOS % 4.6 % (0.0-5.0) [facility] BASO % 0.9 % (0.0-4.0) [facility] NEUT # 2.4 10*3/uL (1.8-7.7) [facility] LYMPH # 1.1 10*3/uL (1.2-4.8) L [facility] MONO # 0.5 10*3/uL (0.0-0.8) [facility] Eosinophils [#/volume] in Blood by Automated count 0.2 10*3/uL (0.0-0 .5) [facility] [place] BASO # 0.0 10*3/uL (0.0-0.2) Lab [facility] YENNY Y ID Date Data Source [id number] 11/20/2020 09:15:00 AM EST [facility] Name Value Range Interpretation Code Description Data Deanna rce(s) Supporting Document(s) SARS coronavirus 2 RNA Not Detected [facility] This lab was ordered by [facility] and reported by [facility]. ID Date Data Source [id number] 11/20/2020 09:15:00 AM EST [facility] Name Value Range Interpretation Code Description Data Deanna rce(s) Supporting Document(s) SARS COV2 [facility] _SARS CoV2 [id number], NAAReport ed: 11/21/2020 20:05 Status=F RESULT FLAG RANGE UNITS SC --SARS-CoV-2, JASMINE Not Detected Not Detected [facility] 11/21/20.2005.rfl.COMPLETE.LCTRThis nucleic acid amplification test was developed and its performancecharacteristics determined by [facility]. Nucleic acidamplification tests include RT-PCR and TMA. This test has not beenFDA cleared or approved. This test has been authorized by FDA underan Emergency Use Authorization (EUA). This test is only authorizedfor the duration of time the declaration that circumstances existjustifying the authorization of the emergency use of in vitrodiagnostic tests for detection of SARS-CoV-2 virus and/or diagnosisof COVID-19 infection under section 564(b)(1) of the Act, 21 U.S.C.360bbb-3(b) (1), unless the authorization is terminated or revokedsooner.When diagnostic testing is negative, the possibility of a falsenegative result should be considered in the context of a patient'srecent exposures and the presence of clinical signs and symptomsconsistent with COVID- 19. An individual without symptoms of COVID-19and who is not shedding SARS-CoV-2 virus would expect to have anegative (not detected) result in this assay.NO MATCH FOUND IN SITE CODE REF TABLE FOR EGL[facility] ID Date Data Source [id number] 11/10/2020 10:03:00 AM EST [facility]) Name Value Range Interpretation Code Description Data Deanna rce(s) Supporting Document(s) Venipuncture Laboratory test result [facility] ([facility]) Stat at 1005 KW ID Date Data Source [id number] 11/10/2020 10:03:00 AM EST [facility] ([facility]) Name Value Range Interpretation Code Description Data Deanna rce(s) Supporting Document(s) Erythrocytes [#/volume] in Blood by Automated count 4.47 x10E6/uL 4.4 -6.0 [facility] ([facility]) 1+ Polychromasia 2+ Anisocytosis 2+ Hypochromasia WBC. 5.72 x10E3/uL 4.2-12.0 [facility] prelim 1111 merrick final 1217 merrick 11/10/2020 Hematocrit [Volume Fraction] of Blood by Automated count 39.2 % 3 9-52 [facility] ([facility]) Hemoglobin [Mass/volume] in Blood 11.3 g/dL 13.8-18.0 Below low nor mal [facility] ([facility]) MCV 87.8 fL 80-98 [facility]) MCH 25.4 pg 27-33 Below low normal [facility] ([facility]) RDW 22.9 % 11.2-15.2 Above high normal [facility] MCHC 28.9 g/dL 32-36 Below low normal [facility] ([facility]) Platelets [#/volume] in Blood by Automated count 181 x10E3/uL 135-420 [facility] ([facility]) MPV 8.8 fL 7.0-12.3 [facility]) % Keesha 75.1 % 41.0-80.0 [facility]) %[place] 4.1 % 2.0-13.0 [facility]) %Lym 17.8 % 10.0-45.2 [facility]) Eosinophils [#/volume] in Blood by Automated count 2.5 % 0.0-8.0 [facility] ([facility]) %Baso 0.4 % 0.0-3.0 [facility]) Neut 4.3 x10E3/uL 2.0-8.1 [facility] Lymp 1.0 x10E3/uL 0.6-3.1 [facility]) [place] 0.2 x10E3/uL 0.0-1.0 [facility] Baso 0.0 x10E3/uL 0.0-0.2 [facility] Eos 0.2 x10E3/uL 0.0-0.6 [facility] ID Date Data Source [id number] 11/10/2020 10:03:00 AM EST [facility] ([facility]) Name Value Range Interpretation Code Description Data Deanna rce(s) Supporting Document(s) Natriuretic peptide B [Mass/volume] in Serum or Plasma 951.6 pg/ mL 0-100 Above high normal [facility] ([facility]) Stat at 1005 KW ID Date Data Source [id number] 11/10/2020 10:03:00 AM EST [facility]) Name Value Range Interpretation Code Description Data Deanna rce(s) Supporting Document(s) Glucose [Mass/volume] in Serum or Plasma 325 mg/dL 74-106 Above high normal [facility] ([facility]) Results Confirmed by Repeat Analysis Labprint and transmitted at 1134 2.19.21 ajk Creatinine [Mass/volume] in Serum or Plasma 2.2 mg/dL 0.5-1.3 Above high normal [facility] ([facility]) Urea nitrogen [Moles/volume] in Serum or Plasma 70 mg/dL 6-20 Record coming over is a correction and thus replaces a final result [facility] ([facility]) Results Confirmed by Repeat Analysis. Potassium [Moles/volume] in Serum or Plasma 4.8 mmol/L 3.5-5.3 [facility] ([facility]) Sodium [Moles/volume] in Serum or Plasma 140 mmol/L 136-145 [facility] ([facility]) Chloride [Moles/volume] in Serum or Plasma 101 mmol/L 98-107 [facility]) Carbon dioxide, total [Moles/volume] in Serum or Plasma 31 meq/L 20 -31 [facility]) eGFR-male 30 mL/m/1.73m [facility] eGFR-Aa male 36 mL/m/1.73m [facility]) <content>Normal Kidney Function or Mild Disease GFR >59 mL/min/1.73m2</content>
<content>Chronic Kidney Disease GFR 15-59 mL/min/1.73m2</content>
<content>Renal Failure GFR <15 mL/min/1.73m2</content>
<content></content> Anion Gap 8 mmol/L 7-16 [facility]) Calcium [Mass/volume] in Serum or Plasma 8.9 mg/dL 8.9-10.5 [facility] ([facility]) ID Date Data Source [id number] 11/03/2020 07:32:30 AM EST [facility] Name Value Range Interpretation Code Description Data Deanna rce(s) Supporting Document(s) POC GLUCOSE 96 mg/dL (70-99) [facility] PERFORMED BY CLINICAL STAFF ID Date Data Source [id number] 11/03/2020 08:15:43 AM EST [facility] Name Value Range Interpretation Code Description Data Deanna rce(s) Supporting Document(s) SODIUM 143 mmol/L (136-145) [facility] POTASSIUM 4.1 mmol/L (3.6-5.2) [facility] CHLORIDE 107 mmol/L (100-108) [facility] CO2 25 mmol/L (22-31) [facility] ANION GAP 11 mmol/L (7-16) [facility] UREA NITROGEN 48 mg/dL (7-24) H [facility] CREATININE 1.80 mg/dL (0.80-1.30) H [facility] BUN/CREAT RATIO 26.7 RATIO (10.0-20.0) H [facility] GLUCOSE 85 mg/dL (70-99) [facility] CALCIUM 8.8 mg/dL (8.4-10.2) [facility] GFR 38 ml/min/1.73m2 (>59) L [facility] GFR ( AMER) 46 ml/min/1.73m2 (>59) L [facility] GFR INTERPRETATION [facility] --NORMAL KIDNEY FUNCTION OR MILD DISEASE - GFR >OR= 60CHRONIC KIDNEY DISEASE - GFR 15 - 59RENAL FAILURE - GFR <15 Est. GFR calculation based on the MDRDstudy equation, which assumes a steadystate for creatinine. Est. GFR should notbe used for medication dosing. ID Date Data Source [id number] 11/03/2020 08:04:57 AM EST [facility] Name Value Range Interpretation Code Description Data Deanna rce(s) Supporting Document(s) WBC 5.4 10*3/uL (4.1-11.0) [facility] [place] RBC 3.75 10*6/uL (4.60-6.10) L [facility] HGB 9.0 g/dL (13.5-18.0) L [facility] HCT 28.8 % (41.0-53.0) L [facility] MCV 76.6 fL (80.0-95.0) L [facility] MCH 24.1 pg (27.0-32.0) L [facility] MCHC 31.5 g/dL (32.0-36.0) L [facility] RDW 20.5 % (10.5-14.5) H [facility] PLT 219 10*3/uL (150-450) [facility] MPV 8.4 fL (7.1-10.7) [facility] ID Date Data Source [id number] 11/02/2020 08:48:57 PM EST [facility] Name Value Range Interpretation Code Description Data Deanna rce(s) Supporting Document(s) POC GLUCOSE 198 mg/dL (70-99) H [facility] NOTIFIED NURSEPERFORMED BY CLINICAL S TAFF ID Date Data Source [id number] 11/02/2020 06:23:53 PM EST [facility] Name Value Range Interpretation Code Description Data Deanna rce(s) Supporting Document(s) POC GLUCOSE 141 mg/dL (70-99) H [facility] PERFORMED BY CLINICAL STAFF ID Date Data Source [id number] 11/02/2020 05:04:50 PM EST [facility] Name Value Range Interpretation Code Description Data Deanna rce(s) Supporting Document(s) POC GLUCOSE 83 mg/dL (70-99) [facility] NOTIFIED NURSEPERFORMED BY CLINICAL S TAFF ID Date Data Source [id number] 11/02/2020 04:40:49 PM EST [facility] Name Value Range Interpretation Code Description Data Deanna rce(s) Supporting Document(s) POC GLUCOSE 69 mg/dL (70-99) L [facility] NOTIFIED NURSEPERFORMED BY CLINICAL S TAFF ID Date Data Source [id number] 11/02/2020 03:27:28 PM EST [facility] Name Value Range Interpretation Code Description Data Deanna rce(s) Supporting Document(s) POC GLUCOSE 83 mg/dL (70-99) [facility] NOTIFIED PROVIDERNOTIFIED NURSEPERFORMED BY CLINICAL STAFF ID Date Data Source [id number] 11/02/2020 02:45:28 PM EST [facility] Name Value Range Interpretation Code Description Data Deanna rce(s) Supporting Document(s) POC GLUCOSE 87 mg/dL (70-99) [facility] NOTIFIED PROVIDERNOTIFIED NURSEPERFORMED BY CLINICAL STAFF ID Date Data Source [id number] 11/02/2020 02:19:45 PM EST [facility] Name Value Range Interpretation Code Description Data Deanna rce(s) Supporting Document(s) POC GLUCOSE 82 mg/dL (70-99) [facility] PERFORMED BY CLINICAL STAFF ID Date Data Source [id number] 11/02/2020 01:25:01 PM EST [facility] Name Value Range Interpretation Code Description Data Deanna rce(s) Supporting Document(s) POC GLUCOSE 88 mg/dL (70-99) [facility] PERFORMED BY CLINICAL STAFF ID Date Data Source [id number] 11/02/2020 12:26:48 PM EST [facility] Name Value Range Interpretation Code Description Data Deanna rce(s) Supporting Document(s) POC GLUCOSE 102 mg/dL (70-99) H [facility] PERFORMED BY CLINICAL STAFF ID Date Data Source [id number] 11/02/2020 12:04:47 PM EST [facility] Name Value Range Interpretation Code Description Data Deanna rce(s) Supporting Document(s) POC GLUCOSE 62 mg/dL (70-99) L [facility] NOTIFIED NURSEPERFORMED BY CLINICAL S TAFF ID Date Data Source [id number] 11/02/2020 11:00:17 AM EST [facility] Name Value Range Interpretation Code Description Data Deanan rce(s) Supporting Document(s) POC GLUCOSE 72 mg/dL (70-99) [facility] PERFORMED BY CLINICAL STAFF ID Date Data Source [id number] 11/02/2020 10:42:04 AM EST [facility] Name Value Range Interpretation Code Description Data Deanna rce(s) Supporting Document(s) POC GLUCOSE 83 mg/dL (70-99) [facility] PERFORMED BY CLINICAL STAFF ID Date Data Source [id number] 11/02/2020 08:56:08 AM EST [facility] Name Value Range Interpretation Code Description Data Deanna rce(s) Supporting Document(s) POC GLUCOSE 60 mg/dL (70-99) L [facility] NOTIFIED NURSEPERFORMED BY CLINICAL S TAFF ID Date Data Source [id number] 11/02/2020 11:44:00 AM EST [facility] DATE OF EXAM: 11/02/2020XAMINATION:Ches t Radiograph. One view. CLINICAL INFORMATION:CONGESTIVE HEART FAILURE COMPARISON:11/01/2020 FINDINGS:Support devices: There is a dual-lead pacemaker is/AICD with pulse generator in the left chest wall. Lead tips terminate over the right atrium and right ventricle. Lungs and pleura: There is prominence of the pulmonary vasculature and patchy bilateral bibasilar airspace opacities. Blunting of the right costophrenic angle suggests the presence of a trace effusion. Heart and mediastinum: Unchanged moderate cardiomegaly. Other: No acute osseous abnormality. IMPRESSION:1.Unchanged moderate cardiomegaly.2.Prominence of the pulmonary vasculature and patchy bilateral airspace opacities. Likely representing mild pulmonary edema. Similar to prior study from 11/01/2020.3.Likely trace right effusion. Professional interpretation performed at [facility] .End of diagnostic report for accession: [id number] Interpreted: To Walker MDTranscribed: 11/02/2020 11:40 AMSigned: 11/02/2020 11:44 AM To Walker MD [facility] # [id number] [facility] # [id number] Name Value Range Interpretation Code Description Data Deanna rce(s) Supporting Document(s) ID Date Data Source [id number] 11/02/2020 10:45:32 AM EST [facility] Name Value Range Interpretation Code Description Data Deanna rce(s) Supporting Document(s) HEMOGLOBIN A1C @ 8.2 % (4.0-6.0) H [facility] Performed using [employer].Care must be taken when interpreting CjH0orzeqkef in patients with a hemoglobin variantor decreased erythrocyte lifespan. Values 5.7 - 6.4% suggest prediabetes.Values >=6.5% are diagnostic for diabetes.REFERENCE: DIABETES CARE 2018: 41(S13-S27).PERFORMED AT [address] [facility] [address] EST [place] GLUCOSE 189 mg/dL [facility] ID Date Data Source [id number] 11/02/2020 06:36:42 AM EST [facility] Name Value Range Interpretation Code Description Data Deanna rce(s) Supporting Document(s) SODIUM 145 mmol/L (136-145) [facility] POTASSIUM 3.6 mmol/L (3.6-5.2) [facility] CHLORIDE 112 mmol/L (100-108) H [facility] CO2 23 mmol/L (22-31) [facility] ANION GAP 10 mmol/L (7-16) [facility] UREA NITROGEN 56 mg/dL (7-24) H [facility] CREATININE 1.92 mg/dL (0.80-1.30) H [facility] BUN/CREAT RATIO 29.2 RATIO (10.0-20.0) H [facility] GLUCOSE 65 mg/dL (70-99) L [facility] CALCIUM 8.3 mg/dL (8.4-10.2) L [facility] GFR 35 ml/min/1.73m2 (>59) L [facility] GFR ( AMER) 43 ml/min/1.73m2 (>59) L [facility] GFR INTERPRETATION [facility] --NORMAL KIDNEY FUNCTION OR MILD DISEASE - GFR >OR= 60CHRONIC KIDNEY DISEASE - GFR 15 - 59RENAL FAILURE - GFR <15 Est. GFR calculation based on the MDRDstudy equation, which assumes a steadystate for creatinine. Est. GFR should notbe used for medication dosing. ID Date Data Source [id number] 11/02/2020 06:18:33 AM EST [facility] Name Value Range Interpretation Code Description Data Deanna rce(s) Supporting Document(s) WBC 4.9 10*3/uL (4.1-11.0) [facility] [place] RBC 3.30 10*6/uL (4.60-6.10) L [facility] HGB 7.5 g/dL (13.5-18.0) L [facility] HCT 25.0 % (41.0-53.0) L [facility] MCV 75.8 fL (80.0-95.0) L [facility] MCH 22.9 pg (27.0-32.0) L [facility] MCHC 30.1 g/dL (32.0-36.0) L [facility] RDW 20.9 % (10.5-14.5) H [facility] PLT 195 10*3/uL (150-450) [facility] MPV 7.8 fL (7.1-10.7) [facility] ID Date Data Source [id number] 11/01/2020 08:51:25 PM EST [facility] Name Value Range Interpretation Code Description Data Deanna rce(s) Supporting Document(s) POC GLUCOSE 131 mg/dL (70-99) H [facility] PERFORMED BY CLINICAL STAFF ID Date Data Source [id number] 11/01/2020 04:36:36 PM EST [facility] Name Value Range Interpretation Code Description Data Deanna rce(s) Supporting Document(s) POC GLUCOSE 130 mg/dL (70-99) H [facility] PERFORMED BY CLINICAL STAFF ID Date Data Source [id number] 11/13/2020 06:10:00 AM EST [facility] alexei [place], [place] [address] [address] [id number] NAME: JAMAR WILSONDATE OF : 4REPORT: CONSULTATIONPATIENT NUMBER: [id number] STATUS: SDMEDICAL RECORD NUMBER: [id number]: 02DATE OF CONSULTATION: 1DIAGNOSIS: Recurrent incisional hernia.HISTORY: This is a 63-year-old male who was transferred from an outsidehospital for some cardiac issues. He has severe cardiomyopathy and withcoronary artery disease. He has had some arrhythmias and underwent anablation. Now post ablation he has been found to have some diminishedhematocrit and is being worked up for a GI bleed. Asked to see patient forhis abdominal wall issues.PAST MEDICAL HISTORY: Coronary artery disease, CABG in 2001, multiplestents. The patient has chronic kidney issues, has had a history of CHF,cardiomyopathy.ALLERGIES: No known allergies.MEDICATIONS: Spironolactone, allopurinol, amlodipine, Eliquis, Lipitor,carvedilol, vitamin D, clopidogrel, digoxin, ezetimibe, Lasix, Glyburide,insulin, Protonix, Entresto, Mirapex, and Januvia.PHYSICAL EXAMINATION: On examination, patient is awake, alert andoriented. Skin is warm and dry. Abdomen: There is a hernia defect in theupper and lower midline. There is some mild tenderness but the hernia issoft and mostly reducible.IMPRESSION AND PLAN: The patient has a recurrent hernia. He has hadmultiple hernia repairs. His cardiac risk is significant. At this pointhis hernias are soft and there is nothing I would do urgently. He is beingworked up for a GI bleed. I doubt his hernias have anything to do with hisdiminished hematocrit. We can follow him as an outpatient once his cardiacstatus is stable.DICTATED BY: FRANCO Cornejoictated: 11/01/2020 14:03DT: 11/01/2020 14:10Job #: [id number]:NOTE: [facility] computer generated reports are notconfirmed or authenticated unless they are signed by the providerElectronically Authenticated by:ABRAHAM PADILLA MD On 11/13/2020 06:10 AM EST Name Value Range Interpretation Code Description Data Deanna rce(s) Supporting Document(s) ID Date Data Source [id number] 11/01/2020 11:43:23 AM EST [facility] [place] Name Value Range Interpretation Code Description Data Deanna rcivon(s) Supporting Document(s) POC GLUCOSE 215 mg/dL (70-99) H [facility]a NOTIFIED NURSEPERFORMED BY NAZARIO MCGRATH S TAFKalyani ID Date Data Source [id number] 11/01/2020 12:01:25 PM EST [facility] Name Value Range Interpretation Code Description Data Deanna rce(s) Supporting Document(s) STOOL OCCULT BLOOD (NEG) [facility] ID Date Data Source [id number] 11/01/2020 08:50:00 AM EST [facility] DATE OF EXAM: 11/01/2020XAMINATION:Ches t Radiograph. One view. CLINICAL INFORMATION:CONGESTIVE HEART FAILURE COMPARISON:10/31/2020 FINDINGS:Support devices: There is a dual-lead pacemaker/AICD with pulse generator in the left chest wall. Lungs and pleura: Increased prominence of the pulmonary vasculature, interstitial lung markings with patchy bibasilar airspace opacities. Blunting of the right costophrenic angle suggests the presence of a trace right effusion. Heart and mediastinum: Moderate cardiomegaly. Sternotomy wires are present over midline. Other: Degenerative changes affect the v isualized spine. No acute osseous abnormality. IMPRESSION:Moderate cardiomegaly.Mild pulmonary edema.Suggestion of a trace right effusion. Professional interpretation performed at [facility] [phone].End of diagnostic report for accession: [id number] Interpreted: To Walker MDTranscribed: 11/01/2020 08:45 AMSigned: 11/01/2020 08:50 AM To Walker [facility] # [id number] BILL # [id number] Name Value Range Interpretation Code Description Data Deanna rce(s) Supporting Document(s) ID Date Data Source [id number] 11/01/2020 07:57:36 AM EST [facility] Name Value Range Interpretation Code Description Data Deanna rce(s) Supporting Document(s) MUSE EKG PDF encoded [facility] TFTBMw9dZmUKBjMlm9QbDtOpSJWsKV3yert3A5Z2fPHdW2RtsNVfc5hwN1OrV9BfUJMwMVKSXQ3MxOOj jb2 [file] [employer]/rKly1+iKou5gkx8owTyA1fsdT4+Lh52Pzi/iqsf [file] nG4kRx7Z1Ocs2yH5229WNxueLvY2qK509/Johnny/W7m3 r0wrqFXs7j0lntg05A3+6xzj338R+9t73F0RepdEDylzl1ZDytreaP8VfRy6aeHH1rnsW74ueoN+9WuW 8184eIE3iQf1f9wedoYofM5rYsiI02ynUvteOgdgYnc8iWvn3OKdu4DNwvlvvO6k5UtzuvAzwY78H297 Xsqd9riCdHJvL+KGn4JzBZxQ2lpms/FKt2Gp9VsF79 fyX8ZTc0ckwhGfLBFv+QieEwL2AmqVRv0w2f2VlWNFN4uQocb9ElaThCuBQcG0OOdAWeEgsNVr0Guf2u l6bPy4VK68YDWHTj6BTln7nbNcd3cs7eblzOCtxuwW4CddcATjRu0NOC9WIFhN31OZc8uJWxOAdVOc8k z0meJe4vrec3M48y4auvWvrla9Gldh6cmyviTI8Fj+ iIfQ5Ro/ppacehcAVz9csH6c6+HdNx9hxl/jXs0j792uitRaiHSs3sgkMT+/W6wk7Q44VXjRtL8x7Xm6 0cQe9+NMyv0B3BU+mrT0MmvNgN7b9EQR4cE0o3K4aM40LpQZ/H54NhVqclk1k14vJii6+mlkY1m74Peh gu7N466e3Twrrr62OzuSSky3uu82Xh0ml7ZttzA+Mv +4RxGn/KCrf3oqLfZ3v664MYXfQhgglB17ZMyZ6Uwpp1yX/yHTG+y7fJ+O7eNxwtdaC4aWH1jpast8md 3ADK4kCSj+t+93jwsNuXGyVmqSQhkwnpL0/Gvc/TjGtis/Yxi8BtyEBKytN6+or1H34xXifKsoN6LNzn R/vLebS/HMZ3C+u5mwVofmdNQI28a9mpO417tNtOVs 1C0czQ4VAz5vQDS4qk71oXqlWQmSQgAWwh1lg0kefO24uw9A0tt4rm/SPV98NBv47fst/6ejIsKPSC39 +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+nTx/ZPyYwywBe1Z2hphflAoBIJ4Rw60vvZ3BCy+QjgPyeRw3ZwgokhljTMj2NirFsqnGi5dCY+x [file] sfKl1ivWO8YDXbYiqQQg3Iw8GcvdK1csEqEmYcXWI9VwynYVFJMz== ID Date Data Source [id number] 11/01/2020 07:24:23 AM EST [facility] Name Value Range Interpretation Code Description Data Deanna rce(s) Supporting Document(s) POC GLUCOSE 188 mg/dL (70-99) H [facility] NOTIFIED NURSEPERFORMED BY CLINICAL S TAFF ID Date Data Source [id number] 11/01/2020 09:22:54 AM EST [facility] Name Value Range Interpretation Code Description Data Deanna rce(s) Supporting Document(s) DIGOXIN 0.7 ng/mL (0.8-2.0) L [facility] ID Date Data Source [id number] 11/01/2020 06:54:18 AM EST [facility] Name Value Range Interpretation Code Description Data Deanna rce(s) Supporting Document(s) SODIUM 144 mmol/L (136-145) [facility] POTASSIUM 4.3 mmol/L (3.6-5.2) [facility] CHLORIDE 111 mmol/L (100-108) H [facility] CO2 23 mmol/L (22-31) [facility] ANION GAP 10 mmol/L (7-16) [facility] UREA NITROGEN 57 mg/dL (7-24) H [facility] CREATININE 2.01 mg/dL (0.80-1.30) H [facility] BUN/CREAT RATIO 28.4 RATIO (10.0-20.0) H [facility] GLUCOSE 192 mg/dL (70-99) H [facility] CALCIUM 8.1 mg/dL (8.4-10.2) L [facility] GFR 33 ml/min/1.73m2 (>59) L [facility] GFR ( AMER) 40 ml/min/1.73m2 (>59) L [facility] GFR INTERPRETATION [facility] --NORMAL KIDNEY FUNCTION OR MILD DISEASE - GFR >OR= 60CHRONIC KIDNEY DISEASE - GFR 15 - 59RENAL FAILURE - GFR <15 Est. GFR calculation based on the MDRDstudy equation, which assumes a steadystate for creatinine. Est. GFR should notbe used for medication dosing. ID Date Data Source [id number] 11/01/2020 06:27:27 AM EST [facility] Name Value Range Interpretation Code Description Data Deanna rce(s) Supporting Document(s) WBC 6.7 10*3/uL (4.1-11.0) [facility] [place] RBC 3.78 10*6/uL (4.60-6.10) L [facility] HGB 8.8 g/dL (13.5-18.0) L [facility] HCT 28.9 % (41.0-53.0) L [facility] [address] [facility] [place] [address] MCV 76.4 fL (80.0-95.0) L [facility] MCH 23.3 pg (27.0-32.0) L [facility] MCHC 30.4 g/dL (32.0-36.0) L [facility] RDW 20.9 % (10.5-14.5) H [facility] PLT 219 10*3/uL (150-450) [facility] MPV 8.0 fL (7.1-10.7) [facility] ID Date Data Source [id number] 10/31/2020 08:43:37 PM EST [facility] Name Value Range Interpretation Code Description Data Deanna rce(s) Supporting Document(s) POC GLUCOSE 290 mg/dL (70-99) H [facility] PERFORMED BY CLINICAL STAFF ID Date Data Source [id number] 10/31/2020 06:06:00 PM EST [facility] DATE OF EXAM: 10/31/2020XAM: Chest 1V I NDICATION: DYSPNEA TECHNIQUE: Single semiupright AP view of the chest was obtained. COMPARISON: Chest x-ray dated 09/20/2019. FINDINGS: Cardiomediastinal contours are unchanged. The cardiac silhouette is enlarged. Patient has undergone prior midline sternotomy; the superior most wire is fractured but unchanged. Dual-lead left defibrillator is noted. New central vascular congestion and diffuse increased interstitial prominence and multiple Chloe B lines is most compatible with acute pulmonary edema. Basilar atelectasis. Small right pleural effusion. No pneumothorax. IMPRESSION: Findings most suggestive of acute CHF with cardiomegaly, pulmonary edema, central vessel congestion. Small right pleural effusion. Professional interpretation performed at [facility] .End of diagnostic report for accession: [id number] Interpreted: Carolyn De Jesus MDTranscribed: 10/31/2020 06:04 PMSigned: 10/31/2020 06:06 PM Carolyn De Jesus MD [facility] ACC # [id number] BILL # [id number] Name Value Range Interpretation Code Description Data Deanna rce(s) Supporting Document(s) ID Date Data Source [id number] 10/31/2020 05:14:59 PM EST [facility] Name Value Range Interpretation Code Description Data Deanna rce(s) Supporting Document(s) POC GLUCOSE 144 mg/dL (70-99) H [facility] PERFORMED BY CLINICAL STAFF ID Date Data Source [id number] 10/31/2020 04:42:00 PM EST [facility] DATE OF EXAM: 10/31/2020T ABDOMEN AND P RAMESH WITHOUT CONTRAST INDICATION: POST ABLATION -ANEMIA HCT 19 COMPARISON: None TECHNIQUE: Axial CT images were obtained of the abdomen and pelvis without contrast. Coronal and sagittal reformatted images were obtained. One or more of the following dose reduction techniques were utilized in effectively lowering the radiation dose for this examination: Automated Exposure Control, Adjustment of the mA and/or kV according to patient size, or Iterative reconstruction. FINDINGS: The lack of intravenous contrast hampers the evaluation of solid organs and the ability to detect and characterize soft tissue abnormalities. Lower Chest: Cardiomegaly. Partially imaged pacemaker lead. Coronary artery calcifications. Small pleural effusions, right greater than left with bibasilar atelectasis. Liver: Periportal edema. Gallbladder: Unremarkable. Pancreas: Unremarkable.Spleen: Mildly enlarged at 16 cm AP.Adrenals: Unremarkable. Kidneys/Ureters: Bilateral probable cysts, incompletely evaluated on this unenhanced exam. Small hyperdense areas along the lateral margin of the right kidney may reflect hemorrhagic cysts or calcification within a renal lesion. Bilateral perinephric stranding is nonspecific. No hydronephrosis.Bladder: Decompressed with indwelling Marie catheter. Stomach and Bowel: Sigmoid colon and small bowel are contained within an inferior ventral hernia. Status post right hemicolectomy. No dilation. Peritoneum/Retroperitoneum: Small ascites with simple fluid attenuation. No hematoma. Reproductive Organs: Unremarkable. Lymph Nodes: No gross adenopathy.Vessels: Severe atherosclerotic calcification. Soft Tissues: Inferior ventral hernia containing fat, bowel and fluid. Stranding in both groins is likely postprocedural.Bones: Degenerative changes of the spine. IMPRESSION: 1. No hematoma.2. Small ascites.3. Cardiomegaly. Small bilateral pleural effusions. 4. Bilateral renal cysts. Small hyperdense areas along the lateral margin of the right kidney may reflect tiny hemorrhagic cysts or calcification within a renal lesion. Recommend further evaluation with renal ultrasound when able.5. Inferior ventral hernia containing bowel. No evidence of obstruction. Professional interpretation performed at [facility] .End of diagnostic report for accession: [id number] Interpreted: Elke Doyle MDTranscribed: 10/31/2020 04:24 PMSigned: 10/31/2020 04:42 PM Elke Doyle MD [facility] # [id number] [facility] # [id number] Name Value Range Interpretation Code Description Data Deanna rce(s) Supporting Document(s) ID Date Data Source [id number] 10/31/2020 02:52:05 PM EST [facility] Name Value Range Interpretation Code Description Data Deanna rce(s) Supporting Document(s) POC GLUCOSE 114 mg/dL (70-99) H [facility] PERFORMED BY CLINICAL STAFF ID Date Data Source [id number] 10/31/2020 02:25:21 PM EST [facility] [place] Name Value Range Interpretation Code Description Data Deanna rce(s) Supporting Document(s) POC GLUCOSE 131 mg/dL (70-99) H [facility] NOTIFIED PROVIDERPERFORMED BY COLLEEN L STAFF ID Date Data Source [id number] 10/31/2020 02:02:12 PM EST [facility] Name Value Range Interpretation Code Description Data Deanna rce(s) Supporting Document(s) WBC 5.9 10*3/uL (4.1-11.0) [facility] [place] RBC 3.39 10*6/uL (4.60-6.10) L [facility] HGB 7.7 g/dL (13.5-18.0) L [facility] PATIENT TRANSFUSED HCT 25.7 % (41.0-53.0) L [facility] [address] [facility] [address] MCV 76.1 fL (80.0-95.0) L [facility] MCH 22.6 pg (27.0-32.0) L [facility] MCHC 29.8 g/dL (32.0-36.0) L [facility] RDW 20.2 % (10.5-14.5) H [facility] PLT 212 10*3/uL (150-450) [facility] MPV 7.6 fL (7.1-10.7) [facility] NEUT % 49.9 % (35.0-75.0) [facility] LYMPH % 35.4 % (16.0-52.0) [facility] MONO % 11.5 % (0.0-8.0) H [facility] EOS % 2.4 % (0.0-5.0) [facility] BASO % 0.8 % (0.0-4.0) [facility] NEUT # 3.0 10*3/uL (1.8-7.7) [facility] LYMPH # 2.1 10*3/uL (1.2-4.8) [facility] MONO # 0.7 10*3/uL (0.0-0.8) [facility] Eosinophils [#/volume] in Blood by Automated count 0.1 10*3/uL (0.0-0 .5) [facility] BASO # 0.0 10*3/uL (0.0-0.2) [facility] ID Date Data Source [id number] 10/31/2020 01:02:14 PM EST [facility] Name Value Range Interpretation Code Description Data Deanna rce(s) Supporting Document(s) WBC 5.3 10*3/uL (4.1-11.0) [facility] [place] RBC 2.77 10*6/uL (4.60-6.10) L [facility] HGB 5.9 g/dL (13.5-18.0) LL [facility] RESULT(S) CALLED TO AND READ BACK [facility] ON 10/31/20 AT 1301 [place] [id number] HCT 20.0 % (41.0-53.0) L [facility] [address] [facility] [place] [address] MCV 72.2 fL (80.0-95.0) L [facility] MCH 21.1 pg (27.0-32.0) L [facility] MCHC 29.3 g/dL (32.0-36.0) L [facility] RDW 18.2 % (10.5-14.5) H [facility] PLT 215 10*3/uL (150-450) [facility] MPV 8.1 fL (7.1-10.7) [facility] NEUT % 50.7 % (35.0-75.0) [facility] LYMPH % 35.3 % (16.0-52.0) [facility] MONO % 10.3 % (0.0-8.0) H [facility] EOS % 2.6 % (0.0-5.0) [facility] BASO % 1.1 % (0.0-4.0) [facility] NEUT # 2.7 10*3/uL (1.8-7.7) [facility] LYMPH # 1.9 10*3/uL (1.2-4.8) [facility] MONO # 0.5 10*3/uL (0.0-0.8) [facility] Eosinophils [#/volume] in Blood by Automated count 0.1 10*3/uL (0.0-0 .5) [facility] BASO # 0.1 10*3/uL (0.0-0.2) [facility] ID Date Data Source [id number] 10/31/2020 12:03:52 PM EST [facility] Name Value Range Interpretation Code Description Data Deanna rce(s) Supporting Document(s) WBC 4.9 10*3/uL (4.1-11.0) [facility] [place] RBC 2.64 10*6/uL (4.60-6.10) L [facility] HGB 5.7 g/dL (13.5-18.0) LL [facility] RESULT(S) CALLED TO AND READ BACK BYDORIS RIBERA IN CARDIAC CATH AT 1202 ON 10/31/20 [place] [address] HCT 19.0 % (41.0-53.0) LL [facility] PERFORMED AT [address] [facility] [address] MCV 72.0 fL (80.0-95.0) L [facility] MCH 21.5 pg (27.0-32.0) L [facility] MCHC 29.9 g/dL (32.0-36.0) L [facility] RDW 18.3 % (10.5-14.5) H [facility] PLT 206 10*3/uL (150-450) [facility] MPV 8.0 fL (7.1-10.7) [facility] NEUT % 56.3 % (35.0-75.0) [facility] LYMPH % 31.9 % (16.0-52.0) [facility] MONO % 8.5 % (0.0-8.0) H [facility] EOS % 2.4 % (0.0-5.0) [facility] BASO % 0.9 % (0.0-4.0) [facility] NEUT # 2.7 10*3/uL (1.8-7.7) [facility] LYMPH # 1.6 10*3/uL (1.2-4.8) [facility] MONO # 0.4 10*3/uL (0.0-0.8) [facility] Eosinophils [#/volume] in Blood by Automated count 0.1 10*3/uL (0.0-0 .5) [facility] BASO # 0.0 10*3/uL (0.0-0.2) [facility] ID Date Data Source [id number] 10/31/2020 02:25:16 PM EST [facility] Name Value Range Interpretation Code Description Data Deanna rce(s) Supporting Document(s) POC GLUCOSE 156 mg/dL (70-99) H [facility] NOTIFIED PROVIDERPERFORMED BY NAZARIO Beatty STAFF ID Date Data Source [id number] 10/31/2020 11:51:50 AM EST [facility] Name Value Range Interpretation Code Description Data Deanna rce(s) Supporting Document(s) COLOR [facility] [address] [facility] [address] APPEARANCE [facility] SPEC GRAV URINE 1.014 (1.003-1.030) [facility] PH URINE 5.5 (5.0-7.5) [facility] LEUK ESTERASE (NEG) [facility] NITRITE URINE (NEG) [facility] PROTEIN URINE (NEG) [facility] GLUCOSE URINE (NEG) [facility] KETONE URINE (NEG) [facility] [place] UROBILINOGEN 0.2 mg/dL (0-1.0) [facility] [place] BILIRUBIN URINE (NEG) [facility] BLOOD/HGB URINE (NEG) [facility] ID Date Data Source [id number] 10/31/2020 11:41:40 AM EST [facility] Name Value Range Interpretation Code Description Data Deanna rce(s) Supporting Document(s) WBC 4.6 10*3/uL (4.1-11.0) [facility] [place] RBC 2.67 10*6/uL (4.60-6.10) L [facility] HGB 5.7 g/dL (13.5-18.0) LL [facility] RESULT(S) CALLED [facility] AND [facility] BACK [facility] IN CARDIAC CATH AT 1139 ON 10/31/[place] [address] HCT 19.2 % (41.0-53.0) LL [facility] PERFORMED AT [address] [place] [address] MCV 72.0 fL (80.0-95.0) L [facility] MCH 21.2 pg (27.0-32.0) L [facility] MCHC 29.4 g/dL (32.0-36.0) L [facility] RDW 18.1 % (10.5-14.5) H [facility] PLT 200 10*3/uL (150-450) [facility] MPV 8.6 fL (7.1-10.7) [facility] NEUT % 57.2 % (35.0-75.0) [facility] LYMPH % 29.7 % (16.0-52.0) [facility] MONO % 9.6 % (0.0-8.0) H [facility] EOS % 2.5 % (0.0-5.0) [facility] BASO % 1.0 % (0.0-4.0) [facility] NEUT # 2.6 10*3/uL (1.8-7.7) [facility] LYMPH # 1.4 10*3/uL (1.2-4.8) [facility] MONO # 0.4 10*3/uL (0.0-0.8) [facility] Eosinophils [#/volume] in Blood by Automated count 0.1 10*3/uL (0.0-0 .5) [facility] BASO # 0.0 10*3/uL (0.0-0.2) [facility] ID Date Data Source [id number] 10/31/2020 02:25:11 PM EST [facility] Name Value Range Interpretation Code Description Data Deanna rce(s) Supporting Document(s) POC GLUCOSE 162 mg/dL (70-99) H [facility] NOTIFIED PROVIDERPERFORMED BY NAZARIO Beatty STAFF ID Date Data Source [id number] 10/31/2020 06:49:32 AM EST [facility] Name Value Range Interpretation Code Description Data Deanna rce(s) Supporting Document(s) POC GLUCOSE 188 mg/dL (70-99) H [facility] PERFORMED BY CLINICAL STAFF ID Date Data Source [id number] 10/31/2020 08:30:56 AM EST [facility] Name Value Range Interpretation Code Description Data Deanna rce(s) Supporting Document(s) SODIUM 145 mmol/L (136-145) [facility] POTASSIUM 4.2 mmol/L (3.6-5.2) [facility] CHLORIDE 112 mmol/L (100-108) H [facility] CO2 24 mmol/L (22-31) [facility] ANION GAP 9 mmol/L (7-16) [facility] UREA NITROGEN 56 mg/dL (7-24) H [facility] CREATININE 1.97 mg/dL (0.80-1.30) H [facility] BUN/CREAT RATIO 28.4 RATIO (10.0-20.0) H [facility] GLUCOSE 181 mg/dL (70-99) H [facility] CALCIUM 7.8 mg/dL (8.4-10.2) L [facility] GFR 34 ml/min/1.73m2 (>59) L [facility] GFR ( AMER) 41 ml/min/1.73m2 (>59) L [facility] GFR INTERPRETATION [facility] --NORMAL KIDNEY FUNCTION OR MILD DISEASE - GFR >OR= 60CHRONIC KIDNEY DISEASE - GFR 15 - 59RENAL FAILURE - GFR <15 Est. GFR calculation based on the MDRDstudy equation, which assumes a steadystate for creatinine. Est. GFR should notbe used for medication dosing. ID Date Data Source [id number] 11/03/2020 12:55:32 AM EST [facility] SPEC EXP DATE 11/03/2020ATI ENT ABO/Rh A POSITIVEANTIBODY SCREEN NEGATIVETESTING SITE PERFORMED AT [address] [place] [place] [address]PGIPP BANK COMMENT BLOOD TYPE CONFIRMED.UNIT NUMBER [id number] COMPONENT TYPE LEUKOPOOR RED CELLSUNIT DIVISION 00STATUS OF UNIT TRANSFUSEDTRANSFUSION STATUS OK TO TRANSFUSECROSSMATCH RESULT COMPATIBLEUNIT NUMBER [id number] COMPONENT TYPE LEUKOPOOR RED CELLSUNIT DIVISION 00STATUS OF UNIT TRANSFUSEDTRANSFUSION STATUS OK TO TRANSFUSECROSSMATCH RESULT COMPATIBLEUNIT NUMBER [id number] COMPONENT TYPE LEUKOPOOR RED CELLSUNIT DIVISION 00STATUS OF UNIT TRANSFUSEDTRANSFUSION STATUS OK TO TRANSFUSECROSSMATCH RESULT COMPATIBLEUNIT NUMBER [id number] COMPONENT TYPE LEUKOPOOR RED CELLSUNIT DIVISION 00STATUS OF UNIT TRANSFUSEDTRANSFUSION STATUS OK TO TRANSFUSECROSSMATCH RESULT COMPATIBLE Name Value Range Interpretation Code Description Data Deanna rce(s) Supporting Document(s) ID Date Data Source [id number] 10/31/2020 09:43:02 PM EST [facility] Name Value Range Interpretation Code Description Data Deanna rce(s) Supporting Document(s) FERRITIN @ 4 ng/mL (26-388) L [facility] ID Date Data Source [id number] 10/31/2020 09:43:02 PM EST [facility] Name Value Range Interpretation Code Description Data Deanna rce(s) Supporting Document(s) IRON,TOTAL @ 16 ug/dL (35-150) L [facility] [place] UIBC @ 474 ug/dL (130-375) H [facility] TIBC @ 490 ug/dL (250-450) H [facility] % SATURATION 3 % (12-50) L [facility] [place] ID Date Data Source [id number] 10/31/2020 09:43:02 PM EST [facility] Name Value Range Interpretation Code Description Data Deanna rce(s) Supporting Document(s) FOLATE @ 12.6 ng/mL (3.1-17.5) [facility] [place] ID Date Data Source [id number] 10/31/2020 09:43:02 PM EST [facility] Name Value Range Interpretation Code Description Data Deanna rce(s) Supporting Document(s) VITAMIN B12 @ 644 pg/mL (193-986) [facility] ID Date Data Source [id number] 10/27/2020 02:16:00 PM EST [facility] Name Value Range Interpretation Code Description Data Deanna rce(s) Supporting Document(s) Respiratory specimen severe acute respir atory syndrome coronavirus 2 (SARS-CoV-2) RNA Negative (qualifier value) [facility] This lab was ordered by [facility] and reported by . ID Date Data Source [id number] 10/29/2020 08:31:00 AM EST [facility] Name Value Range Interpretation Code Description Data Deanna rce(s) Supporting Document(s) SARS-CoV-2 RNA INHOUSE Negative Normal (applies to non-n umeric results) [facility] THIS IS A [facility] REPORTABLE COMMUNICABLE DISEASE. Testing was performed using the [employer] COVID-19 MDx Assay. This test has been authorized by FDA under an (Emergency Use Authorization) EUA for use by authorized laboratories for individuals who are suspected of COVID-19 by their healthcare provider. This test is only authorized for the duration of the declaration that circumstances exist justifying the authorization of emergency use of in vitro diagnostic tests for detection and/or diagnosis of SARS-CoV-2. Methodology: Endpoint RT-PCR. Fact sheets for this EUA assay can be found at the following links: Providers: https://www.fda.gov/media/549221/download Patients : https://www.fda.gov/media/815167/download THIS IS A [facility] REPORTABLE COMMUNICABLE DISEASE Negative results do not preclude SARS-CoV-2 infection and should not be used as the sole basis for patient management decisions. Negative results must be combined with clinical observations,patient history, and epidemiological information. ID Date Data Source [id number] 10/26/2020 05:18:00 PM EST [facility] [id number] [place], [place] [id number] NAME: JAMAR WILSONDATE OF : 4REPORT: OPERATIONPATIENT NUMBER: [id number] STATUS: SDMEDICAL RECORD NUMBER: [id number] OF ADMISSION: 10/20/2020ATE OF DISCHARGE:ROOM: 00DATE OF PROCEDURE: 10/20/2020ROCEDURE: Cardioversion.INDICATION: Atrial fibrillation in a patient with ischemic cardiomyopathy.Under propofol anesthetic, the patient was shocked 175, 200, 250 withoutclinical success. 1 mg of atropine was admitted. Shocked one last time at275 joules biphasic. May have had two atrial paced beats and then wentright back into AFib.IMPRESSION: Unsuccessful cardioversion of atrial fibrillation.CONSIDERATION: Referral for potential ablation study. He is relativelyasymptomatic with this, but OptiVol indices are rising on his device.DICTATED BY: Juan Miguel Abdul, MDDictated: 10/20/2020 16:41DT: 10/20/2020 16:53Job #: [id number]: [facility] computer generated reports are not confirmed orauthenticated unless they are signed by the providerElectronically Authenticated by:JUAN MIGUEL ABDUL MD On 10/26/2020 05:18 PM EST Name Value Range Interpretation Code Description Data Deanna rce(s) Supporting Document(s) ID Date Data Source [id number] 10/19/2020 11:00:00 AM EST [facility] Name Value Range Interpretation Code Description Data Deanna rce(s) Supporting Document(s) SARS coronavirus 2 RNA Not Detected [facility] This lab was ordered by [facility] ENRRIQUE ARGUELLO and reported by [facility]. ID Date Data Source [id number] 10/19/2020 11:00:00 AM EST [facility] Name Value Range Interpretation Code Description Data Deanna rce(s) Supporting Document(s) SARS COV2 JASMINE [facility] _SARS CoV2 [id number]_[id number]-[id number], NAAReport ed: 10/20/2020 14:05 Status=F RESULT FLAG RANGE UNITS SC --SARS-CoV-2, JASMINE Not Detected Not Detected [facility] 10/20/[email or web address].LCTRThis nucleic acid amplification test was developed and its performancecharacteristics determined by [facility]. Nucleic acidamplification tests include RT-PCR and TMA. This test has not beenFDA cleared or approved. This test has been authorized by FDA underan Emergency Use Authorization (EUA). This test is only authorizedfor the duration of time the declaration that circumstances existjustifying the authorization of the emergency use of in vitrodiagnostic tests for detection of SARS-CoV-2 virus and/or diagnosisof COVID-19 infection under section 564(b)(1) of the Act, 21 U.S.C.360bbb-3(b) (1), unless the authorization is terminated or revokedsooner.When diagnostic testing is negative, the possibility of a falsenegative result should be considered in the context of a patient'srecent exposures and the presence of clinical signs and symptomsconsistent with COVID- 19. An individual without symptoms of COVID-19and who is not shedding SARS-CoV-2 virus would expect to have anegative (not detected) result in this assay.NO MATCH FOUND IN SITE CODE REF TABLE FOR [facility] ID Date Data Source [id number] 10/18/2020 01:31:00 PM EST [facility] Name Value Range Interpretation Code Description Data Deanna rce(s) Supporting Document(s) Sodium 140 mmol/L 137-145 Normal (applies to non-numeric resul ts) [facility] Potassium 3.5-5.1 Normal (applies to non-numeric resul ts) [facility] Chloride 111 mmol/L 98-112 Normal (applies to non-numeric resul ts) [facility] Carbon Dioxide CO2 22.0-33.0 Below low normal [facility] Anion Gap 4.0-11.0 Normal (applies to non-numeric resul ts) [facility] BUN 50 mg/dL 9-20 Above high normal [facility] Creatinine 0.80-1.50 Above high normal [facility] GFR 30 mL/min >60 Below low normal [facility] Result based on MDRD formula. Glucose Level 222 mg/dL 74-99 Above high normal [facility] The reference range is only applicable w hen fasting. Calcium-Uncorrected 8.4-10.2 Normal (applies to non-nume maryjo results) [facility] [facility] Corrected Calcium 8.4-10.2 Normal (applies to non-numeri c results) [facility] ID Date Data Source [id number] 10/18/2020 10:32:00 AM [facility] Name Value Range Interpretation Code Description Data Deanna rce(s) Supporting Document(s) Creatinine 0.80-1.50 Above high normal [facility] GFR 32 mL/min >60 Below low normal [facility] Result based on MDRD formula. ID Date Data Source [id number] 10/18/2020 04:28:00 PM [facility] Name: JAMAR WILSON : 1955 Age/Sex: 65M Ordering Provider: Kristin Montana MD Med Rec #: [id number] Reg Status: DEP REF Room #: Date of Service: 10/18/20 Report Number: [id number] cc:Adonis Manzano MD; Kristin Montana MD Send Report To: [id number] CT/CT Abd&Pel Oral Contrast Only Reason for exam: INCISIONAL HERNIA WITHOUT OBSTRUCTION OR GANGRENE FINDINGS: There is a small right effusion identified. Some trace ascites identified over the liver edge. The liver is otherwise within normal limits. The spleen measures approximately 14.3 cm at the upper limits of normal to slightly enlarged. The kidneys demonstrate some mild perinephric stranding. The pancreas is within normal limits. The gallbladder is contracted. There is a ventral hernia identified in the upper abdomen. That hernia containsomental fat and the hernia defect measures a bout 2.7 cm. More inferiorly there is a larger ventral hernia containing some small bowel loops in the hernia sac and the hernia defect measures 6.2 cm in transverse dimension. There is a smallamount of fluid noted in the hernia sac as well with Hounsfield units of 12. There is also some small amount of free fluid identified in the pelvis with Hounsfield units of 10. The bladder appears normal. There is no other significant findings other than some atherosclerotic changes in the aorta and DJD in the spine. IMPRESSION: Small right pleural effusion. Small amount of ascites. Ventral hernia containing some small bowel loops within the hernia sac with no evidence for any incarceration or obstructions. Small amount of fluid in the pelvis. While performing the above CT exam, the following dose reduction techniques wereused: *Automated exposure control *Adjustment of the mA and/or kV according to patient size *Use of iterative reconstruction technique CT Dose in mSv: 8.738 Contrast Agent in ml: Method of Administration: REPORT SIGNATURE ON FILE Reported By: Checo Cleaning MD <Electronically signed by Zoey Cleaning MD> 10/19/20 0835 Dictation Date/Time: 10/18/20 1124 Transcribed Date/Time: 10/18/20 1628 Superintendent Operating: IVAN Name Value Range Interpretation Code Description Data Deanna rce(s) Supporting Document(s) ID Date Data Source [id number] 10/18/2020 01:12:00 PM [facility] Name: JAMAR WILSON : 1955 Age/Sex: 65M Ordering Provider: Kristin Montana MD Med Rec #: [id number] Reg Status: DEP REF Room #: Date of Service: 10/18/20 Report Number: [id number] cc:Adonis Manzano MD; Kristin Montana MD Send Report To: [id number] US/US Carotids w Duplex (Doppler) Reason for exam: OCCLUSION AND STENOSIS OF BILATERAL CAROTID ARTERIES Ultrasound imaging performed using color flow and spectral Doppler interrogation. Bilateral vertebrals are antegrade. Right CCA 112/26 cm/sec Right ICA 151/42 cm/sec Right ECA 128/18 cm/sec Ratio 1.4/1.6 Left CCA 139/25 cm/sec Left ICA 209/57 cm/sec Left ECA 202/15 cm/sec Ratio 1.5/2.3 FINDINGS: Peak systolic velocity in the right internal carotid artery is 151 cmper second with diastolic velocity of 42 cm per second. On the left side velocities are 209 cm per second and 57 cm per second. Flow through the vertebrals is antegrade. Plaquing noted bilaterally at the bulbs. These findings indicate a 50-69% diameter stenosis bilaterally. Consider CT angiogramif any further evaluation is needed. IMPRESSION: 50-69% diameter bilateral ICA stenosis. NASCET was utilized while determining the amount of stenosis on the US of the carotids. REPORT SIGNATURE ON FILE Reported By: Checo Cleaning MD <Electronically signed by Zoey Cleaning MD> 10/19/20 0834 Dictation Date/Time: 10/18/20 0948 Transcribed Date/Time: 10/18/20 1312 Superintendent Operating: IVAN Name Value Range Interpretation Code Description Data Deanna rce(s) Supporting Document(s) ID Date Data Source [id number] 10/03/2020 09:25:00 AM EST [facility] Name Value Range Interpretation Code Description Data Deanna rce(s) Supporting Document(s) BASIC METABOLIC PANEL [facility] BASIC METABOLIC PANEL Sodium [Moles/volume] in Serum or Plasma 142 mEq/L 136 - 145 [facility] Potassium [Moles/volume] in Serum or Plasma 4.1 mEq/L 3.5 - 5.1 [facility] Chloride [Moles/volume] in Serum or Plasma 108 mEq/L 98 - 107 Above high normal [facility] Carbon dioxide, total [Moles/volume] in Serum or Plasma 20.8 mEq /L 21.0 - 32.0 Below low normal [facility] Glucose [Mass/volume] in Serum or Plasma 203 mg/dL 70 - 100 Above high normal [facility] Urea nitrogen [Mass/volume] in Serum or Plasma 78 mg/dL 7 - 18 Above upper panic limits [facility] CALLED TO: ANGEL Lowry @ [facility] REP/VERIFIED REPEATED TO CONFIRM (77) [facility] READ BACK YES [facility] CREATININE SERUM 2.44 mg/dL 0.70 - 1.30 Above high normal [facility] AGE 65 yrs [facility] eGFR NON-AFR AMR 27 [facility] eGFR AFR AMR 32 [facility] BUN/CREAT 32 6 - 25 Above high normal [facility] Calcium [Mass/volume] in Serum or Plasma 8.6 mg/dL 8.8 - 10.2 Below low normal [facility] ANION GAP 13 7 - 15 [facility] Estimated GFR reference r sandra: > 60 mL/min/1.73m >18 years: Calculated using IDMS traceable MDRD Study Equation <18 years: Calculated using IDMS traceable [facility] Equation ID Date Data Source [id number] 09/01/2020 11:54:48 [place] [address] TELEPHONE RADIOLOGY DEPARTMENT Name: ANA MARIA [facility] #: [id number] : 1955 Ordering Physician: JUSTA MONTANO Sex: M Date: 08/31/20 Admission Type: O/P X-ray Number: [id number] Unsigned Transcriptions are preliminary reports and do not represent a Medical or Legal Document XRAY CHEST 2 VIEW PA - LATERA [id number] COMPLETE:08/31/20 10:47 LEI (REASON FOR CHEST: follow up LLL pneunonia Comparison study on 06/25/2020. FINDINGS: Examination of the chest 2 views submitted for evaluation. The lungs are well expanded and clear. The cardiac silhouette is normal in size and contour. There's evidence of prior cardiac surgery and a left sided cardiac conduction device. No acute osseous abnormality. IMPRESSION: Interval resolution of previously visualized pneumonia. Electronically Reviewed and Signed By KI GILLIS MD, MD 09/01/20 11:53 Dictating Initials: ROBERTO CARLOS Transcribed Date: 09/01/20 08:43 Transcribe Initials: LI Name Value Range Interpretation Code Description Data Deanna rce(s) Supporting Document(s) ID Date Data Source [id number] 08/27/2020 10:38:00 AM EST [facility] ARIS [id number] ROBERTO CARLOS POOLE [id number] [facility] 1955EPORT: DISCHARGE SUMMARYPATIENT NUMBER: [id number] STATUS: IPMEDICAL RECORD NUMBER: [id number] OF ADMISSION: 08/23/2020DATE OF DISCHARGE: 08/24/2020ROOM: 02A 65-year-old man with generalized vascular disease, has high-grade carotidstenosis. On the day of admission underwent a right carotid endarterectomywith a bovine patch angioplasty for what was a high- grade stenosis withulcerated plaque. He tolerated the operation well and postoperatively hehas done well. He was discharged on his usual medications to have officefollowup.DICTATED BY: FRANCO Fernandezictated: 08/25/2020 6:33DT: 08/25/2020 6:42Job #: [id number]: Juan Miguel Abdul MDNOTE: [facility] computer generated reports are notconfirmed or authenticated unless they are signed by the providerElectronically Authenticated by:KRISTIN MONTANA MD On 08/27/2020 10:38 AM EST Name Value Range Interpretation Code Description Data Deanna rce(s) Supporting Document(s) ID Date Data Source [id number] 08/24/2020 08:37:27 AM EST [facility] Name Value Range Interpretation Code Description Data Deanna rce(s) Supporting Document(s) POC GLUCOSE 250 mg/dL (70-99) H [facility] PERFORMED BY CLINICAL STAFF ID Date Data Source [id number] 08/23/2020 09:31:06 PM EST [facility] Name Value Range Interpretation Code Description Data Deanna rce(s) Supporting Document(s) POC GLUCOSE 245 mg/dL (70-99) H [facility] PERFORMED BY CLINICAL STAFF ID Date Data Source [id number] 08/23/2020 07:14:33 PM EST [facility] Name Value Range Interpretation Code Description Data Deanna rce(s) Supporting Document(s) POC GLUCOSE 155 mg/dL (70-99) H [facility] NOTIFIED NURSEPERFORMED BY CLINICAL S TAFF ID Date Data Source [id number] 08/23/2020 04:05:28 PM EST [facility] [place], [place] [address]Tel# SURGICAL PATHOLOGY REPORTPatient Name:JAMAR WILSON:4Received:08/23/2020Accession #:[id number](s) Received: A: PlaqueClinical Diagnosis and History: Right carotid stenosis. DIAGNOSIS:RIGHT CAROTID CONTENTS MATERIAL CONSISTENT WITH CALCIFIED ATHEROSCLEROTICPLAQUE. GROSS DESCRIPTION: Specimen received in formalin labeled "plaque" is a tubular bifurcatedplaque that varies in diameter from 0.5 cm to 1.2 cm. The outer surfaceis smooth to shaggy and the cut surface reveal marked calcification at thebifurcation. No sections are taken. [email or web address]/daiReported: 08/23/2020Electronically Signed Out By Zuleyka Asher M.D. jglPathology Associates [place], [place] [address]Technical component performed at [facility], Histopathology, [address] [place] [address], [facility].Rep orted at [facility], [address] [place] [address], Critical access hospital.This report may include immunohistochemical or in-situ hybridizationresults. Testing was developed and the performance characteristicsdetermined by [facility], as required byCLIA '88. The FDA has determined that approval for specific use is notnecessary for clinical use. The quality of Hematoxylin and Eosin stainsand as applicable, for all immunohistochemical and/or special stains,including positive and negative controls, were reviewed and consideredappropriate.ICD codes:A: I65.29CPT4 codes: A: 52007H Name Value Range Interpretation Code Description Data Deanna rce(s) Supporting Document(s) ID Date Data Source [id number] 08/27/2020 10:36:00 AM [place], [place] [address]PATIENT NAME: JAMAR WILSONDATE OF : 4REPORT: OPERATIONPATIENT NUMBER: [id number] STATUS: OF ADMISSION:DATE OF DISCHARGE:ROOM:DATE OF PROCEDURE: 08/23/2020PREOPERATIVE DIAGNOSIS: Right carotid stenosis.POSTOPERATIVE DIAGNOSIS: Right carotid stenosis.OPERATIVE PROCEDURE: Right carotid endarterectomy, bovine patchangioplasty, operative angiogram.SURGEON: SABA FernandezISTANT: TAMMY McleodTHESIA: General.PROCEDURE: The patient was anesthetized. The right neck was painted withDuraPrep and draped in sterile fashion. Carotid bifurcation was exposedthrough an oblique incision. He was given systemic heparin. An openingwas made from the common carotid across the bulb where there was a denselycalcified stenosis . Plaque was sharply transected from the common carotid, everted from external carotid, feathered from internal carotid. some of the back moon were excised, reapproximated with 6-0 Prolene suture. Flow was restored. Doppler signals and an operative angiogram were satisfactory. Protamine was given. Kojo-Mattson was brought out the inferior apex incision and closed in layers of absorbable suture material. Blood loss was a couple hundred milliliters. Sponge and needle count correct. He was brought to the recovery room in stable condition.DICTATED BY: FRANCO Fernandezictated: 08/23/2020 14:29DT: 08/23/2020 16:17Job #: [id number]: [facility] computer generated reports are not confirmed orauthenticated unless they are signed by the providerElectronically Authenticated and Edited by:KRISTIN MONTANA MD On 08/27/2020 10:36 AM EST Name Value Range Interpretation Code Description Data Deanna rce(s) Supporting Document(s) ID Date Data Source [id number] 08/23/2020 02:23:35 PM EST [facility] Name Value Range Interpretation Code Description Data Deanna rce(s) Supporting Document(s) POC GLUCOSE 153 mg/dL (70-99) H [facility] PERFORMED BY CLINICAL STAFF ID Date Data Source [id number] 08/23/2020 12:09:11 PM EST [facility] Name Value Range Interpretation Code Description Data Deanna rce(s) Supporting Document(s) POC GLUCOSE 194 mg/dL (70-99) H [facility] NOTIFIED NURSEPERFORMED BY CLINICAL S TAFF ID Date Data Source [id number] 08/25/2020 07:04:12 AM EST [facility] SPEC EXP DATE 08/26/2020TEST ING SITE PERFORMED AT [facility] [address] [place] [place] [address]FKGE NUMBER [id number] COMPONENT TYPE LEUKOPOOR RED CELLSUNIT DIVISION 00STATUS OF UNIT REL FROM ALLOCTRANSFUSION STATUS OK TO TRANSFUSECROSSMATCH RESULT COMPATIBLE Name Value Range Interpretation Code Description Data Deanna rce(s) Supporting Document(s) ID Date Data Source [id number] 08/23/2020 11:09:10 AM EST [facility] Name Value Range Interpretation Code Description Data Deanna rce(s) Supporting Document(s) POC GLUCOSE 269 mg/dL (70-99) H [facility] Umana NOTIFIED NURSEPERFORMED BY CLINICAL S TAFF ID Date Data Source [id number] 09/05/2020 01:58:00 AM EST [facility] Name Value Range Interpretation Code Description Data Deanna rce(s) Supporting Document(s) SARS-CoV-2 JASMINE result Not Detected Normal (applies to non- numeric results) [facility] This nucleic acid amplification test was developed and its performance characteristics determined by [facility]. Nucleic acid amplification tests include PCR and TMA. This test has not been FDA cleared or approved. This test has been authorized by FDA under an Emergency Use Authorization (EUA). This test is only authorized for the duration of time the declaration that circumstances exist justifying the authorization of the emergency use of in vitro diagnostic tests for detection of SARS-CoV-2 virus and/or diagnosis of COVID-19 infection under section 564(b)(1) of the Act, 21 U.S.C. 360bbb-3(b) (1), unless the authorization is terminated or revoked sooner. When diagnostic testing is negative, the possibility of a false negative result should be considered in the context of a patient's recent exposures and the presence of clinical signs and symptoms consistent with COVID-19. An individual without symptoms of COVID-19 and who is not shedding SARS-CoV-2 virus would expect to have a negative (not detected) result in this assay. Performed at: [facility] [address], [place], [place] [id number] Database Administration Project Manager: Divya Coon PhD, Phone: [phone] Testing was performed using the Aptima SARS-CoV-2 assay. This nucleic acid amplification test was developed and its performance characteristics determined by [facility]. Nucleic acid amplification tests include PCR and TMA. This test has not been FDA cleared or approved. This test has been authorized by FDA under an Emergency Use Authorization (EUA). This test is only authorized for the duration of time the declaration that circumstances exist justifying the authorization of the emergency use of in vitro diagnostic tests for detection of SARS-CoV-2 virus and/or diagnosis of COVID-19 infection under section 564(b)(1) of the Act, 21 U.S.C. 360bbb-3(b) (1), unless the authorization is terminated or revoked sooner. When diagnostic testing is negative, the possibil ity of a false negative result should be considered in the context of a patient's recent exposures and the presence of clinical signs and symptoms consistent with COVID-19. An individual without symptoms of COVID-19 and who is not shedding SARS-CoV-2 virus would expect to have a negative (not detected) result in this assay. Performed at: [facility] [id number] Database Administration Project Manager: Amy Burciaga MD, Phone: [phone] ID Date Data Source [id number] 08/18/2020 07:15:00 AM [facility] Name Value Range Interpretation Code Description Data Deanna rce(s) Supporting Document(s) SARS coronavirus 2 RNA [facility] This lab [facility] and reported by [facility]. ID Date Data Source [id number] 07/27/2020 10:54:09 AM EST Lab [facility] SPEC EXP DATE 08/26/2020PATI ENT ABO/Rh A POSITIVEANTIBODY SCREEN NEGATIVETESTING SITE PERFORMED AT [address] [place] [address] BANK COMMENT BLOOD TYPE CONFIRMED. Name Value Range Interpretation Code Description Data Deanna rce(s) Supporting Document(s) TYPE AND SCREEN [facility] PATIENT ABO/Rh A POSITIVE ID Date Data Source [id number] 07/27/2020 11:45:37 AM EST Lab [facility] Name Value Range Interpretation Code Description Data Deanna rce(s) Supporting Document(s) ASPIRIN RESISTANCE @ 545 [ARU] [facility] INTERPRETATION OF RESULT <550: ASA RESPONDER =550: ASA NON-RESPONDER >550: ASA NON-RESPONDER INTERFERING SUBSTANCES: CHANGE IN PLATELET FUNCTION: ANTI-PLATELET AGENTS: THESE AGENTS INHIBIT PLATELET FUNCTION AND MAY RESULT IN A DECREASED ARU VALUE INDEPENDENT OF THE EFFECTS OF ASPIRIN. THE DURATION OF THE INHIBITORY EFFECT VARIES AMONG DRUGS FROM HOURS TO DAYS. NSAIDS: LIKE ASPIRIN, NSAIDS INHIBIT PLATELET FUNCTION. UNLIKE ASPIRIN, NSAIDS DO NOT IRREVERSIBLY INHIBIT PLATELET FUNCTION. THIS MAY LEAD TO LESS PLATELET INHIBITION BY ASPIRIN IF THE NSAID AND ASPIRIN ARE TAKEN AT THE SAME TIME, RESULTING IN HIGHER ARU VALUES THAN WITH ASPIRIN ALONE. THE INHIBITORY EFFECT U SUALLY LASTS FOR 24 HOURS. GP IIb/IIIa: PATIENTS WHO HAVE BEEN ADMINISTERED AGGRASTAT OR INTEGRILIN WITHIN TWO DAYS, OR REOPRO WITHIN TWO WEEKS SHOULD NOT BE TESTED. ID Date Data Source [id number] 07/27/2020 10:24:35 AM EST [facility] Name Value Range Interpretation Code Description Data Deanna rce(s) Supporting Document(s) SODIUM 141 mmol/L (136-145) [facility] POTASSIUM 4.3 mmol/L (3.6-5.2) [facility] CHLORIDE 112 mmol/L (100-108) H [facility] CO2 22 mmol/L (22-31) [facility] ANION GAP 7 mmol/L (7-16) [facility] UREA NITROGEN 44 mg/dL (7-24) H [facility] CREATININE 1.57 mg/dL (0.80-1.30) H [facility] BUN/CREAT RATIO 28.0 RATIO (10.0-20.0) H [facility] GLUCOSE 373 mg/dL (70-99) H [facility] CALCIUM 8.3 mg/dL (8.4-10.2) L [facility] GFR 44 ml/min/1.73m2 (>59) L [facility] GFR ( AMER) 54 ml/min/1.73m2 (>59) L [facility] GFR INTERPRETATION [facility] --NORMAL KIDNEY FUNCTION OR MILD DISEASE - GFR >OR= 60CHRONIC KIDNEY DISEASE - GFR 15 - 59RENAL FAILURE - GFR <15 Est. GFR calculation based on the MDRDstudy equation, which assumes a steadystate for creatinine. Est. GFR should notbe used for medication dosing. ID Date Data Source [id number] 07/27/2020 10:11:25 AM EST [facility] Name Value Range Interpretation Code Description Data Deanna rce(s) Supporting Document(s) APTT 27.6 s (22.0-34.3) [facility] PERFORMED AT [address] [place] [address] ID Date Data Source [id number] 07/27/2020 10:11:25 AM EST [facility] Name Value Range Interpretation Code Description Data Deanna rce(s) Supporting Document(s) PT 11.9 s (9.2-11.9) [facility] PERFORMED AT [address] [place] [address] INR 1.14 [facility] SUGGESTED THERAPEUTIC RANGES USING INR F ORSTABILIZED ANTICOAGULATED PATIENTS:STANDARD DOSE THERAPY INR 2.0-3.0 DVT, PE, PREVENT DVT OR EMBOLISMHIGH DOSE THERAPY INR 2.5-3.5 PREVENT EMBOLISM FROM MECHANICAL HEART VALVE ID Date Data Source [id number] 07/27/2020 10:01:40 AM EST [facility] Name Value Range Interpretation Code Description Data Deanna rce(s) Supporting Document(s) WBC 6.1 10*3/uL (4.1-11.0) [facility] [place] RBC 3.74 10*6/uL (4.60-6.10) L [facility] HGB 9.6 g/dL (13.5-18.0) L [facility] HCT 30.0 % (41.0-53.0) L [facility] PERFORMED AT [address] [place] [address] MCV 80.4 fL (80.0-95.0) [facility] MCH 25.8 pg (27.0-32.0) L [facility] MCHC 32.0 g/dL (32.0-36.0) [facility] RDW 17.4 % (10.5-14.5) H [facility] PLT 167 10*3/uL (150-450) [facility] MPV 8.4 fL (7.1-10.7) [facility] ID Date Data Source [id number] 07/07/2020 02:12:00 PM EDT [facility] DATE OF EXAM: 07/07/2020CT ANGIOGRAM NEC K WITHOUT AND WITH CONTRAST. CLINICAL STATEMENT: Occlusion and stenosis of right carotid artery TECHNIQUE: CTA of the neck was performed through the neck following intravenous administration of 100 ML Omnipaque 350. Source images were sent to [employer] workstation for 3D remodeling. One or more of the following dose reduction techniques were utilized in effectively lowering the radiation dose for this examination: Automated Exposure Control, Adjustment of the mA and/or kV according to patient size, or Iterative reconstruction. COMPARISON: None of this type. FINDINGS: CTA NECK: A conventional three-vessel aortic arch configuration is seen. The origins of the great vessels are visualized and patent. The visualized portion of bilateral subclavian arteries are grossly patent. Both common carotid, internal carotid, and external carotid arteries are visualized and patent. There is dense calcified atheromatous plaque at both common carotid artery bifurcations involving the proximal internal and external carotid artery segments. On the right, the narrowest segment of the proximal internal carotid artery measures 1 mm and the diameter of the artery beyond any poststenotic dilatation measures 4 mm. This results in approximately 75% stenosis at the level of the common carotid artery bifurcation. The proximal cervical internal carotid artery immediately distal to this area of stenosis demonstrates less than 50% stenosis. On the left, the narrowest segment of the proximal internal carotid artery measures 3.1 mm and the diameter of the artery beyond any pos tstenotic dilatation measures 4.1 mm. This results in less than 50% stenosis. Both vertebral arteries are visualized throughout their course in the neck and are patent. 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 There is mild atheromatous plaque at the origins of both vertebral arteries with approximately 50% stenosis at the left vertebral artery origin. There is less than 50% stenosis involving the right vertebral artery origin. Measurement of carotid stenosis is based upon NASCET criteria, which is calculated from the ratio of the linear luminal diameter of the narrowest segment of the diseased portion of the artery to the diameter of the artery beyond any poststenotic dilatation. Mild biapical fibrotic scarring is noted. Minimal emphysematous change is noted in the lungs. The main pulmonary artery is slightly prominent in size measuring up to 3.5 cm, suspicious for underlying pulmonary arterial hypertension. Median sternotomy changes are noted. A left-sided AICD device is noted. Multilevel degenerative change is seen in the visualized cervical and thoracic spine. There is multilevel spinal canal stenosis and foraminal narrowing, most pronounced at the C4-C5 and C5-C6 levels. There is apparent moderate to severe central spinal canal stenosis and severe bilateral foraminal narrowing at C4-C5 and moderate c entral spinal canal stenosis and severe bilateral foraminal narrowing at C5-C6. IMPRESSION: Approximately 75% stenosis involving the right cervical internal carotid artery, at the level of the common carotid artery bifurcation takeoff. There is less than 50% stenosis involving the right cervical internal carotid artery beyond this point. Less than 50% stenosis involving the left proximal cervical internal carotid artery. Approximately 50% stenosis at the left vertebral artery origin. Hypoplastic right vertebral artery. K6End of diagnostic report for accession: [id number] Interpreted: Miguel Chang MDTranscribed: 07/07/2020 01:55 PMSigned: 07/07/2020 02:12 PM Miguel Chang MD [facility] # [id number] BILL # [id number] 2MEM Name Value Range Interpretation Code Description Data Deanna rce(s) Supporting Document(s) ID Date Data Source [id number] 07/03/2020 10:50:00 AM EDT [facility] Name Value Range Interpretation Code Description Data Deanna rce(s) Supporting Document(s) 25-OH VITAMIN D 19.4 ng/mL 30.0 - 100 Below low normal [facility] Deficient < 20 ng/mL Insufficient 20 - < 30 ng/mL Sufficient 30 - 100 ng/mL 25-OH vitamin D reference values based on the Clinical Guidelines Subcommittee of the Endocrine Society Task Force. Biotin can interfere with 25-OH Vitamin D results if taken 48 hours prior to specimen collection. ID Date Data Source [id number] 07/03/2020 10:50:00 AM EDT [facility] Name Value Range Interpretation Code Description Data Deanna rce(s) Supporting Document(s) Hemoglobin A1c/Hemoglobin.total in Blood 8.1 % 4.0 - 5.6 Above high normal [facility] Glucose mean value [Mass/volume] in Blood Estimated fr om glycated hemoglobin 186 mg/dL [facility] \\BLDo\\HEMOGLO BIN A1C\\BLDx\\ 4.0 - 5.6%: Normal 5.7 - 6.4%: Suggests Impaired Glucose Metabolism > or = 6.5%: Abnormal Estimated average glucose calculated using ADAG Study formula as recommended by the [place] [employer]. ID Date Data Source [id number] 07/03/2020 10:50:00 AM EDT [facility] Name Value Range Interpretation Code Description Data Deanna rce(s) Supporting Document(s) Cholesterol [Mass/volume] in Serum or Plasma 107 mg/dL [facility] Triglyceride [Mass/volume] in Serum or Plasma 180 mg/dL [facility] Cholesterol in HDL [Mass/volume] in Serum or Plasma 36 mg/dL [facility] Cholesterol in LDL [Mass/volume] in Serum or Plasma by calculation 35 mg/dL [facility] CHOL/HDL 2.97 [facility] \\BLDo\\INTERPRE TATION\\BLDx\\ REFERENCE RANGES (NATIONAL CHOLESTEROL EDUCATION PROGRAM) CHOLESTEROL < 200 mg/dL DESIREABLE 200 - 239 mg/dL BORDERLINE HIGH > 240 mg/dL HIGH TRIGLYCERIDES < 150 mg/dL DESIREABLE 150 - 199 mg/dL BORDERLINE HIGH 200 - 499 mg/dL HIGH > or = 500 mg/dL VERY HIGH HDL > or = 60 mg/dL HIGH < 40 mg/dL LOW LDL < 100 mg/dL DESIREABLE 100 - 129 mg/dL LOW RISK 130 - 159 mg/dL BORDERLINE HIGH 160 - 189 mg/dL HIGH > or = 190 mg/dL VERY HIGH ID Date Data Source [id number] 07/03/2020 10:50:00 AM EDT [facility] Name Value Range Interpretation Code Description Data Deanna rce(s) Supporting Document(s) COMPREHENSIVE CHEM PROFILE [facility] COMPREHENSIVE METABOLIC PANEL Sodium [Moles/volume] in Serum or Plasma 140 mEq/L 136 - 145 [facility] Potassium [Moles/volume] in Serum or Plasma 4.0 mEq/L 3.5 - 5.1 [facility] Chloride [Moles/volume] in Serum or Plasma 101 mEq/L 98 - 107 [facility] Carbon dioxide, total [Moles/volume] in Serum or Plasma 30.8 mEq /L 21.0 - 32.0 [facility] Glucose [Mass/volume] in Serum or Plasma 280 mg/dL 70 - 100 Above high normal [facility] Urea nitrogen [Mass/volume] in Serum or Plasma 31 mg/dL 7 - 18 Above high normal [facility] CREATININE SERUM 1.41 mg/dL 0.70 - 1.30 Above high normal [facility] AGE 65 yrs [facility] HEIGHT R [facility] eGFR NON-AFR AMR 50 [facility] eGFR AFR AMR >60 [facility] ital BUN/CREAT 22 6 - 25 [facility] Protein [Mass/volume] in Serum or Plasma 7.6 g/dL 6.0 - 8.3 [facility] Albumin [Mass/volume] in Serum or Plasma 3.4 g/dL 3.8 - 5.4 Below low normal [facility] GLOBULIN 4.2 g/dL 2.0 - 4.0 Above high normal [facility] A/G RATIO 0.8 0.8 - 2.0 [facility] Calcium [Mass/volume] in Serum or Plasma 8.6 mg/dL 8.8 - 10.2 Below low normal [facility] Bilirubin.total [Mass/volume] in Serum or Plasma 0.7 mg/dL 0.2 - 1.0 [facility] Bilirubin.direct [Mass/volume] in Serum or Plasma 0.1 mg/dL 0.0 - 0. 2 [facility] INDIRECT BILI 0.6 mg/dL 0.0 - 1.1 [facility] pital ALK PHOSPHATASE 85 U/L 40 - 129 [facility] ospital Aspartate aminotransferase [Enzymatic ac tivity/volume] in Serum or Plasma by With P-5'-P 13 IU/L 7 - 37 [facility] Alanine aminotransferase [Enzymatic acti vity/volume] in Serum or Plasma by With P-5'-P 16 IU/L 12 - 78 [facility] ANION GAP 8 7 - 15 [facility] Estimated GFR referenc e range: >60ml/min/1.73m >18 years: Calculated using IDMS traceable Study Equation <18 years: Calculated using IDMS tracable Bedside Schartz Equation ID Date Data Source [id number] 06/29/2020 10:30:[address] [facility] [address] [place] [address] TELEPHONE RADIOLOGY DEPARTMENT Name: [facility] #: [id number] : 1955 Ordering Physician: FREDERICK HILL Sex: M Date: 06/25/20 Admission Type: E/R X-ray Number: [id number] Unsigned Transcriptions are preliminary reports and do not represent a Medical or Legal Document XRAY CHEST 2 VIEW [place] [id number] COMPLETE:06/25/20 20:44 LEI 58512 (REASON FOR CHEST: DYSPNEA Comparison: 11/26/2009 FINDINGS: 2 views of the chest are reviewed. The cardiac silhouette is slightly enlarged, similar to prior exam. A dual lead defibrillator device is seen in place. The patient is status post sternotomy. There are sclerotic calcifications of the aorta. There are inflammatory changes in both lung bases. Small pleural effusion are seen. No significant pulmonary vascular congestion noted otherwise. No acute abnormalities. IMPRESSION: Bibasilar co nsolidation, small pleural effusion. Early congestive heart failure in the differential. Electronically [place] [address] TELEPHONE RADIOLOGY DEPARTMENT Name: [facility] #: [id number] : 1955 Ordering Physician: FREDERICK HILL Sex: M Date: 06/25/20 Admission Type: E/R X-ray Number: [id number] Unsigned Transcriptions are preliminary reports and do not represent a Medical or Legal Document DIAN PACE MD, MD 06/29/20 10:30 Dictating Initials: JKJ Transcribed Date: 06/26/20 13:13 Transcribe Initials: BBS Name Value Range Interpretation Code Description Data Deanna rce(s) Supporting Document(s) ID Date Data Source [id number] 06/25/2020 10:45:00 PM EDT [facility] Name Value Range Interpretation Code Description Data Deanna rce(s) Supporting Document(s) ER Note [facility] KVGZUp5mHzHUKesaiV5NUPChSU3fzth0YNidD7PlAAGuzkScWGCpN5kbHSGHRLNXYXSriB8jGNDfJtqU vYm [file] v4YDcx0tMd7bhUc5+HOME PERFORMANCE CONSULTANT/Jp96ttRPESvHAsgLH5039Gcl/z/dC+0cey9j4gSXgqRjLgnyc9TDhfnyECkU [file] MDAwMDAgbiAKMDAwMDAwMDAxNSAwMDAwMCBuIAowMD XaGWVjIIF1BKSlFADoLA9oNuToXBYsDWJ5RTVtUZKuRUEkajQHOLGiJVBgZdnuIoJmBJSkCCGjBPslLQ PzMUYiAaF9VYKfFJLsEV7xLkOlQYGfWVJ8XXrsGULlWJDdgqQANDPrDGQxApIaScGlMGHwJZQfMHqkVR DnFEG4KrU9KMFuJRIaXA9xEkOuLILjEBC0WbyzGVDq AHGdxkMVHQIwIHGaBkz7SNDzDXEdLBMqLFmhMQJvGFQgJTr3BULlTYKbEN8oLdSzPGGvDjRpPRzeKELz SWJjwyWRPBSuCLCgLCB8QNGpLMCxKMPaKTqgXBHfUSMvRYt1VYKwKOMgQS6bEpXpBSEnJdT8EJRuLQIn MDAgbiAKMDAwMDAyMjMwOCAwMDAwMCBuIAowMDAwMD Q6MRPmIOPxXTSrRB5lIdUsLXFxSgQ0LiPbCAKrAZWajbCUJQAsXXEtLSSeDrVwQLVyFLCoMXooSZBfOU R4HcQtKWYhUBBkBI5qZxEzNIWmVjj2ZMSvCQBjJSUzvzGOIMPoQLFlZyq8UwNwBDZpGOFtDAiiGFEuXK Q7AVRtTOMkSAJlZC1zPxRsTOQcQhE7JiPtUGOqSPXu qiXOEVZfFDEvGPX9EZIaFWQyIJLcCLynYPCnOOZoUjZwBZRzWOAmGY5bLrLhXAStJnOvHwpxCHTmIMKp ndMUNYBcJTDjZez6TQLpSTStFWHzRNsoZKKnPKH0TtY0TXXkOTNyHJ3hPlPkOIQcEyK3NCsnWHDxVMJz klGEFPRdUWMdAnIoYoXuQHBmWPLuFNzaGZXvETD8Zi C9ATTfBHRjFE7xMeLwBBdcIHWDZEoWICAxLu7foVToGYTrHiqbDV6NjxApTJGiZUJTQaSxV2wQUIb2Py QJESV6AqU7ISKRQfDJJdJ7EWGANZI8HRWWKYUnMAD+WWn5QSW5YJp1CEpYFpATBDRfPbk3BFVnUWIUU0 Q0DaKrEO9zEbYkK8SdwcFxRsTAVx9Ax0EiilC4deSiOwK1DcG3XjHkIZ8YGh== ID Date Data Source [id number] 06/25/2020 09:35:17 PM EDT [facility] Name Value Range Interpretation Code Description Data Deanna rce(s) Supporting Document(s) Discharge Note [facility] Abebe menendez VTTNMn9kVmQFLvksiL9XCMIkEG2ualc0RLtwX8VgCYVxmjNnNUKmU7vpBAFMYTRUJBHecZ6lXYXnAchF vYm [file] s1DYhw0zBk1fmEz6+HOME PERFORMANCE CONSULTANT/Di42jcJKNGjYDbfKK3667Uyh/z/dC+6coj0b8rDPcmKbSjxwb9NPftkqAQeE [file] MDAxNDUgMDAwMDAgbiAKMDAwMDAwMjcwMiAwMDAwMC AaAJipXGKrTBKnIlVaJLBjXLTfQE8tFoAqQEKbILI1SAHwFAVzXDRrlcAXTVNyDWBpHqarDMUzWLYyRZ LaWQzsXIHqQERrHXCwZSXjYZUzOX4bYfYoDCWrPgKmWECuBLKiMNXrteLNJVJmHLWqAedcDWZjRAAxLR JiZQqtQSBwWERwBBjhQJWdWGUmIR9vToNjSPWkFWD9 STqcXDTnVWBexpXOBWSoWFFuAEO9GWWeONQuZMKgVBzpDPEkEEVoGqgvGSLdUYWiVL8rCjZyCTIbIrXg YMtyLDJmAYHnxbTIEXCtRQZkLaHmPpDgSQSiULYfPHubLFImTFHtRqB2RHTdJGXxXE9rCbJcFUDhBwH2 QcXaOMGfASWtinUDrZQneOueqfe4RRsbSD6Vy652WB NoBRUQOhTjP4dtNk3xXHTaUALOELEdXPLvSgsODxVTMygSM5SKPMMiLeFDHAJwQzI4BqIUSVV1R3IRVW 7mWFZbAtVRJSArAUOdIiGTBOR8SCTqQnIbViFbYPIdW8BORy4BCPTqU2d6NBVjBAg+PgpzdGFydHhyZW NJMlFtVhKKKRNWK8XA ID Date Data Source [id number] 06/25/2020 07:25:00 PM EDT [facility] Name Value Range Interpretation Code Description Data Deanna rce(s) Supporting Document(s) COMPREHENSIVE CHEM PROFILE [facility] COMPREHENSIVE METABOLIC PANEL Sodium [Moles/volume] in Serum or Plasma 141 mEq/L 136 - 145 [facility] Potassium [Moles/volume] in Serum or Plasma 3.3 mEq/L 3.5 - 5.1 Below low normal [facility] Chloride [Moles/volume] in Serum or Plasma 104 mEq/L 98 - 107 [facility] Carbon dioxide, total [Moles/volume] in Serum or Plasma 27.6 mEq /L 21.0 - 32.0 [facility] Glucose [Mass/volume] in Serum or Plasma 232 mg/dL 70 - 100 Above high normal [facility] Urea nitrogen [Mass/volume] in Serum or Plasma 24 mg/dL 7 - 18 Above high normal [facility] CREATININE SERUM 1.26 mg/dL 0.70 - 1.30 [facility] AGE 65 yrs [facility]00 [facility] eGFR NON-AFR AMR 57 [facility] eGFR AFR AMR >60 [facility] ital BUN/CREAT 19 6 - 25 [facility] Protein [Mass/volume] in Serum or Plasma 6.6 g/dL 6.0 - 8.3 [facility] Albumin [Mass/volume] in Serum or Plasma 3.2 g/dL 3.8 - 5.4 Below low normal [facility] GLOBULIN 3.4 g/dL 2.0 - 4.0 [facility] A/G RATIO 0.9 0.8 - 2.0 [facility] Calcium [Mass/volume] in Serum or Plasma 8.0 mg/dL 8.8 - 10.2 Below low normal [facility] Bilirubin.total [Mass/volume] in Serum or Plasma 0.6 mg/dL 0.2 - 1.0 [facility] Bilirubin.direct [Mass/volume] in Serum or Plasma 0.1 mg/dL 0.0 - 0. 2 [facility] INDIRECT BILI 0.5 mg/dL 0.0 - 1.1 [facility] pital ALK PHOSPHATASE 80 U/L 40 - 129 [facility] ospital Aspartate aminotransferase [Enzymatic ac tivity/volume] in Serum or Plasma by With P-5'-P 12 IU/L 7 - 37 [facility] Alanine aminotransferase [Enzymatic acti vity/volume] in Serum or Plasma by With P-5'-P 15 IU/L 12 - 78 [facility] ANION GAP 9 7 - 15 [facility] Estimated GFR referenc e range: >60ml/min/1.73m >18 years: Calculated using IDMS traceable Study Equation <18 years: Calculated using IDMS tracable Bedside Schartz Equation ID Date Data Source [id number] 06/25/2020 07:25:00 PM EDT [facility] Name Value Range Interpretation Code Description Data Deanna rce(s) Supporting Document(s) CBC [facility] COMPLETE BLOOD COUNT Leukocytes [#/volume] in Blood by Automated count 6.8 K/uL 4.0 - 10 .0 [facility] Erythrocytes [#/volume] in Blood by Automated count 3.85 M/uL 4.30 - 6.10 Below low normal [facility] Hemoglobin [Mass/volume] in Blood 10.3 g/dL 13.5 - 17.5 Below low no rmal [facility] Hematocrit [Volume Fraction] of Blood by Automated count 33.4 % 39.0 - 50.0 Below low normal [facility] Erythrocyte mean corpuscular volume [Entitic volume] by Auto mated count 86.8 fL 80.0 - 96.0 [facility] Erythrocyte mean corpuscular hemoglobin [Entitic mass] by Automated count 26.8 pg 26.0 - 34.0 [facility] Erythrocyte mean corpuscular hemoglobin concentration [Mass/volume] by Automated count 30.8 g/dL 32.0 - 36.0 Below low normal [facility] johnny Erythrocyte distribution width [Ratio] by Automated count 15.0 % 11.6 - 14.8 Above high normal [facility] Platelets [#/volume] in Blood by Automated count 220 K/uL 150 - 450 [facility] Platelet mean volume [Entitic volume] in Blood by Automated count 9.6 fL 7.1 - 10.4 [facility] Neutrophils [#/volume] in Blood by Automated count 4.81 K/uL 1.70 - 7.70 [facility] Lymphocytes [#/volume] in Blood by Automated count 1.29 K/uL 1.50 - 6.00 Below low normal [facility] Monocytes [#/volume] in Blood by Automated count 0.44 K/uL 0.00 - 1. 00 [facility] Eosinophils [#/volume] in Blood by Automated count 0.16 K/uL 0.00 - 0.30 [facility] Basophils [#/volume] in Blood by Automated count 0.03 K/uL 0.00 - 0. 10 [facility] 0.03 Urinalysis macro (dipstick) panel - Urine 0.000 10^3/uL 0.000 - 0.012 [facility] Neutrophils/100 leukocytes in Blood by Automated count 71.2 % 42. 2 - 75.2 [facility] Lymphocytes/100 leukocytes in Blood by Automated count 19.1 % 15. 0 - 41.0 [facility] Monocytes/100 leukocytes in Blood by Automated count 6.5 % 0.0 - 12.0 [facility] Eosinophils/100 leukocytes in Blood by Automated count 2.4 % 0.0 - 7.0 [facility] 0.40.40 NRBC 0.0 % [facility] MANUAL DIFF NOT INDICATED [facility] RBC MORPH NOT INDICATED [facility] Procedure Social History Code Duration Value Status Description Data Source(s ) Smoking 04/12/2021 03:30:00 PM EDT Former Smoker completed Former Smoker [facility] Smoking 04/03/2021 12:00:00 AM EDT Former Smoker completed Former Smoker eCW1 ([facility]) Smoking 04/03/2021 12:00:00 AM EDT Former Smoker completed Former Smoker eCW1 ([facility]) Smoking 04/03/2021 12:00:00 AM EDT Former Smoker completed Former Smoker eCW1 ([facility]) 03/28/2021 12:00:00 AM EDT Patient is a current smoker, smokes every day completed Patient is a current smoker, smokes every day [facility] ( [facility]) Smoking 03/17/2021 10:40:00 AM EDT Daily Smoker completed Daily S prker [facility] Alcohol intake 01/16/2021 12:00:00 AM EDT Lifetime non-drinker (finding) completed Lifetime non-drinker (finding) [facility] Tobacco use and exposure 01/16/2021 12:00:00 AM EDT Never used co mpleted Never used [facility] Cigarette pack-years 01/16/2021 12:00:00 AM EDT UNK completed [facility] Cigarettes smoked current (pack per day) - Reported 01/17/20 12:00:00 AM EDT UNK completed [facility] Smoking 01/16/2021 12:00:00 AM EDT Current every day smoker co mpleted Current every day smoker [facility] Smoking 11/01/2020 07:20:00 AM EST Daily Smoker completed Daily S [facility] 09/01/2020 12:00:00 AM EST Patient is a current smoker, smokes every day completed Patient is a current smoker, smokes every day MEDNETO ( [facility]) Vital Signs ID Date Data Source UNK Name Value Range Interpretation Code Description Data Source(s) Body mass index (BMI) [Ratio] 29.79 kg/m2 29.79 kg/m2 [facility] Systolic blood pressure 135 mm[Hg] 135 mm[Hg] [facility] Diastolic blood pressure 53 mm[Hg] 53 mm[Hg] [facility] Body surface area Derived from formula 2.34 m2 2.34 m2 [facility] Body height 187.9600 cm 187.9600 cm [facility] Oxygen saturation in Arterial blood by Pulse oximetry 98 % 98 % [facility] Heart rate 66.0 /min 66.0 /min [facility] ospital Respiratory rate 20 /min 20 /min [facility] Body temperature 36.8 Alma Delia 36.8 Alma Delia [facility] Body weight 105.23 kg 105.23 kg [facility] Body height 74.00 [in_i] 74.00 [in_i] [facility] ([facility]) 6'2" Body weight 232.00 [lb_av] 232.00 [lb_av] MEDEN T ([facility]) Body mass index (BMI) [Ratio] 29.8 kg/m2 29.8 k g/m2 [facility] ([facility]) Systolic blood pressure 158 mm[Hg] 158 mm[Hg] M EDENT ([facility]) Diastolic blood pressure 74 mm[Hg] 74 mm[Hg] [facility] ([facility]) Heart rate 87 /min 87 /min [facility] ([facility]) Body temperature 98.4 [degF] 98.4 [degF] [facility] ([facility]) Body temperature 36.9 Alma Delia 36.9 Alma Delia [facility] ( [facility]) Oxygen saturation in Arterial blood by Pulse oximetry 99 % 99 % [facility] ([facility]) Diastolic blood pressure 70 mm[Hg] 70 mm[Hg] [facility] ([facility]) Heart rate 68 /min 68 /min [facility] ([facility]) Body height 74.00 [in_i] 74.00 [in_i] [facility] ([facility]) 6'2" Body weight 232.25 [lb_av] 232.25 [lb_av] MEDEN T ([facility]) Body mass index (BMI) [Ratio] 29.8 kg/m2 29.8 k g/m2 [facility] ([facility]) Systolic blood pressure 140 mm[Hg] 140 mm[Hg] M [facility]ENT ([facility]) Heart rate 76 /min 76 /min [facility] ([facility]) Body temperature 98.4 [degF] 98.4 [degF] [facility] ([facility]) Body temperature 36.9 Alma Delia 36.9 Alma Delia [facility] ( [facility]) Oxygen saturation in Arterial blood by Pulse oximetry 97 % 97 % [facility] ([facility]) Body height 74.00 [in_i] 74.00 [in_i] [facility] ([facility]) 6'2" Body weight 229.00 [lb_av] 229.00 [lb_av] MEDEN T ([facility]) Body mass index (BMI) [Ratio] 29.4 kg/m2 29.4 k g/m2 [facility] ([facility]) Systolic blood pressure 118 mm[Hg] 118 mm[Hg] M EDENT ([facility]) Diastolic blood pressure 61 mm[Hg] 61 mm[Hg] [facility] ([facility]) Body height 74.00 [in_i] 74.00 [in_i] [facility] ([facility]) 6'2" Heart rate 75 /min 75 /min [facility] ([facility]) Body temperature 97.0 [degF] 97.0 [degF] [facility] ([facility]) Body temperature 36.1 Alma Delia 36.1 Alma Delia [facility] ( [facility]) Oxygen saturation in Arterial blood by Pulse oximetry 100 % 100 % [facility] ([facility]) Body weight 229.00 [lb_av] 229.00 [lb_av] MEDEN T ([facility]) Body mass index (BMI) [Ratio] 29.4 kg/m2 29.4 k g/m2 [facility] ([facility]) Systolic blood pressure 140 mm[Hg] 140 mm[Hg] M [facility] ([facility]) Diastolic blood pressure 72 mm[Hg] 72 mm[Hg] [facility] ([facility]) Body height 74.00 [in_i] 74.00 [in_i] [facility] ([facility]) 6'2" Body weight 229.38 [lb_av] 229.38 [lb_av] MEDEN T ([facility]) Body mass index (BMI) [Ratio] 29.4 kg/m2 29.4 k g/m2 [facility] ([facility]) Systolic blood pressure 146 mm[Hg] 146 mm[Hg] M [facility]ENT ([facility]) Diastolic blood pressure 70 mm[Hg] 70 mm[Hg] [facility] ([facility]) Heart rate 71 /min 71 /min [facility] ([facility]) Body height 74.00 [in_i] 74.00 [in_i] [facility] ([facility]) 6'2" Body weight 222.00 [lb_av] 222.00 [lb_av] [facility] T ([facility]) Body mass index (BMI) [Ratio] 28.5 kg/m2 28.5 k g/m2 [facility] ([facility]) Systolic blood pressure 151 mm[Hg] 151 mm[Hg] M [facility] ([facility]) Diastolic blood pressure 81 mm[Hg] 81 mm[Hg] [facility] ([facility]) Heart rate 89 /min 89 /min [facility] ([facility]) Body temperature 97.0 [degF] 97.0 [degF] [facility] ([facility]) Body temperature 36.1 Alma Delia 36.1 Alma Delia [facility] ( [facility]) Oxygen saturation in Arterial blood by Pulse oximetry 98 % 98 % [facility] ([facility]) Body temperature 35.8 Alma Delia 35.8 Alma Delia [facility] ( [facility]) Body height 74.00 [in_i] 74.00 [in_i] [facility] ([facility]) 6'2" Body weight 223.00 [lb_av] 223.00 [lb_av] MEDEN T ([facility]) Body mass index (BMI) [Ratio] 28.6 kg/m2 28.6 k g/m2 [facility] ([facility]) Systolic blood pressure 137 mm[Hg] 137 mm[Hg] M EDENT ([facility]) Diastolic blood pressure 66 mm[Hg] 66 mm[Hg] [facility] ([facility]) Heart rate 89 /min 89 /min [facility] ([facility]) Body temperature 96.4 [degF] 96.4 [degF] [facility] ([facility]) Oxygen saturation in Arterial blood by Pulse oximetry 96 % 96 % [facility] ([facility]) Body height 74.00 [in_i] 74.00 [in_i] [facility] ([facility]) 6'2" Systolic blood pressure 118 mm[Hg] 118 mm[Hg] M EDENT ([facility]) Diastolic blood pressure 64 mm[Hg] 64 mm[Hg] [facility] ([facility]) Body weight 222.00 [lb_av] 222.00 [lb_av] MEDEN T ([facility]) Body mass index (BMI) [Ratio] 28.5 kg/m2 28.5 k g/m2 [facility] ([facility]) Deprecated Oxygen saturation in Capillary blood by Oximetry 100 % Normal (applies to non-numeric results) 100 % [facility] Systolic blood pressure 124 mm[Hg] Normal (applies t o non-numeric results) 124 mm[Hg] [facility] Diastolic blood pressure 62 mm[Hg] Normal (applies to non-numeric results) 62 mm[Hg] [facility] Heart rate 67 min Normal (applies to non-numeric resul ts) 67 min [facility] Respiratory rate 18 min Normal (applies to non-numeric results) 18 min [facility] Body temperature 37.0 alma delia Normal (applies to non-numeric results) 37.0 alma delia [facility] Body height 187.7568 cm Normal (applies to non-numeric res ults) 187.7568 cm [facility] Body weight Measured 106 kg Normal (applies to non-num nita results) 106 kg [facility] Body mass index (BMI) [Ratio] 30.17 kg/m2 No rmal (applies to non-numeric results) 30.17 kg/m2 [facility] Systolic blood pressure 103 mm[Hg] 103 mm[Hg] [facility] Diastolic blood pressure 58 mm[Hg] 58 mm[Hg] [facility] Heart rate 70.0 /min 70.0 /min [facility] ospital Respiratory rate 22 /min 22 /min [facility] Body temperature 37.2 Alma Delia 37.2 Alma Delia [facility] Body mass index (BMI) [Ratio] 30.04 kg/m2 30.04 kg/m2 [facility] [facility] Body surface area Derived from formula 2.35 m2 2.35 m2 [facility] Body height 187.9600 cm 187.9600 cm [facility] Body weight 106.14 kg 106.14 kg [facility] Oxygen saturation in Arterial blood by Pulse oximetry 96 % 96 % [facility] Body mass index (BMI) [Ratio] 30.04 kg/m2 30.04 kg/m2 [facility] Systolic blood pressure 137 mm[Hg] 137 mm[Hg] [facility] Diastolic blood pressure 95 mm[Hg] 95 mm[Hg] [facility] Body surface area Derived from formula 2.35 m2 2.35 m2 [facility] Body height 187.9600 cm 187.9600 cm [facility] Oxygen saturation in Arterial blood by Pulse oximetry 97 % 97 % [facility] Heart rate 138.0 /min 138.0 /min [facility] Respiratory rate 24 /min 24 /min [facility] Body temperature 38.2 Alma Delia 38.2 Al[place] Delia [facility] Body weight 106.14 kg 106.14 kg [facility] Body height 74.00 [in_i] 74.00 [in_i] MEDNETO ([facility]) 6'2" Body weight 234.00 [lb_av] 234.00 [lb_av] MEDEN T ([facility]) Body mass index (BMI) [Ratio] 30.0 kg/m2 30.0 k g/m2 MEDENT ([facility]) Systolic blood pressure 116 mm[Hg] 116 mm[Hg] M EDENT ([facility]) Diastolic blood pressure 64 mm[Hg] 64 mm[Hg] [facility] ([facility]) Heart rate 90 /min 90 /min [facility] ([facility]) Body temperature 97.7 [degF] 97.7 [degF] [facility] ([facility]) Body temperature 36.5 Alma Delia 36.5 Alma Delia [facility] ( [facility]) Oxygen saturation in Arterial blood by Pulse oximetry --post exerci se 98 % 98 % [facility] ([facility]) Heart rate 65 /min 65 /min eCW1 ([facility]) Body weight 236 [lb_av] 236 [lb_av] eCW1 ([facility] Body height 74 [in_i] 74 [in_i] eCW1 ([facility] Body mass index (BMI) [Ratio] 30.30 kg/m2 30.30 kg/m2 eCW1 ([facility]) Body temperature 98.0 [degF] 98.0 [degF] [facility]ENT ([facility]) Body temperature 36.7 Alma Delia 36.7 Alma Delia MED[facility] ( [facility]) Oxygen saturation in Arterial blood by Pulse oximetry 95 % 95 % [facility] ([facility]) Body height 74.00 [in_i] 74.00 [in_i] [facility] 6'2" Body weight 243.00 [lb_av] 243.00 [lb_av] MEDEN T ([facility]) Body mass index (BMI) [Ratio] 31.2 kg/m2 31.2 k g/m2 [facility]ENT ([facility]) Systolic blood pressure 99 mm[Hg] 99 mm[Hg] M EDENT ([facility]) Diastolic blood pressure 76 mm[Hg] 76 mm[Hg] [facility] ([facility]) Heart rate 90 /min 90 /min [facility] ([facility]) Body height 74.00 [in_i] 74.00 [in_i] [facility] ([facility] 6'2" Body weight 243.38 [lb_av] 243.38 [lb_av] MEDEN T ([facility]) Body mass index (BMI) [Ratio] 31.2 kg/m2 31.2 k g/m2 [facility] ([facility]) Systolic blood pressure 120 mm[Hg] 120 mm[Hg] M [facility] ([facility]) Diastolic blood pressure 82 mm[Hg] 82 mm[Hg] [facility] ([facility]) Heart rate 92 /min 92 /min [facility]) Oxygen saturation in Arterial blood by Pulse oximetry 97 % 97 % [facility] ([facility]) Systolic blood pressure 129 mm[Hg] Normal (applies t o non-numeric results) 129 mm[Hg] [facility] Diastolic blood pressure 67 mm[Hg] Normal (applies to non-numeric results) 67 mm[Hg] [facility] Heart rate 67 min Normal (applies to non-numeric resul ts) 67 min [facility] Respiratory rate 12 min Normal (applies to non-numeric results) 12 min [facility] Body temperature 36.4 alma delia Normal (applies to non-numeric results) 36.4 alma delia [facility] Deprecated Oxygen saturation in Capillary blood by Oximetry 96 % Normal (applies to non-numeric results) 96 % [facility] Body mass index (BMI) [Ratio] 29.75 kg/m2 No rmal (applies to non-numeric results) 29.75 kg/m2 [facility] Body height 187.7568 cm Normal (applies to non-numeric res ults) 187.7568 cm [facility] Body weight Measured 105.1 kg Normal (applies to n on-numeric results) 105.1 kg [facility] Body height 74.00 [in_i] 74.00 [in_i] [facility] ([facility]) 6'2" Body weight 238.00 [lb_av] 238.00 [lb_av] [facility] Body mass index (BMI) [Ratio] 30.6 kg/m2 30.6 k g/m2 [facility] ([facility]) Systolic blood pressure 118 mm[Hg] 118 mm[Hg] M [facility] ([facility]) Diastolic blood pressure 64 mm[Hg] 64 mm[Hg] [facility] ([facility]) Heart rate 81 /min 81 /min [facility] ([facility]) Body weight 235.00 [lb_av] 235.00 [lb_av] MEDEN T ([facility]) Body height 74 [in_i] 74 [in_i] [facility] ([facility] 6'2" Body mass index (BMI) [Ratio] 30.2 kg/m2 30.2 k g/m2 [facility] ([facility]) Systolic blood pressure 145 mm[Hg] 145 mm[Hg] M EDENT ([facility]) Heart rate 76 /min 76 /min [facility] ([facility]) Body temperature 97.4 [degF] 97.4 [degF] [facility] ([facility]) Oxygen saturation in Arterial blood by Pulse oximetry 98 % 98 % [facility] ([facility]) Diastolic blood pressure 72 mm[Hg] 72 mm[Hg] [facility] ([facility]) Body temperature 36.3 Alma Delia 36.3 Alma Delia [facility] ( [facility]) Systolic blood pressure 133 mm[Hg] 133 mm[Hg] [facility] Diastolic blood pressure 65 mm[Hg] 65 mm[Hg] [facility] Heart rate 65 /min 65 /min [facility] Body temperature 36.83 Alma Delia 36.83 Alma Delia [facility] Respiratory rate 16 /min 16 /min [facility] Oxygen saturation in Arterial blood by Pulse oximetry 95 % 95 % [facility] Body height 188 cm 188 cm [facility] Body weight 106.595 kg 106.595 kg [facility] Body mass index (BMI) [Ratio] 30.17 kg/m2 30.17 kg/m2 [facility] Body height 74.00 [in_i] 74.00 [in_i] [facility] ([facility] 6'2" Body weight 235.00 [lb_av] 235.00 [lb_av] MEDEN T ([facility]) Body mass index (BMI) [Ratio] 30.2 kg/m2 30.2 k g/m2 [facility] ([facility]) Systolic blood pressure 110 mm[Hg] 110 mm[Hg] M EDENT ([facility]) Diastolic blood pressure 62 mm[Hg] 62 mm[Hg] [facility] ([facility]) Heart rate 77 /min 77 /min [facility] ([facility]) Systolic blood pressure 130 mm[Hg] 130 mm[Hg] M EDENT ([facility]) Diastolic blood pressure 73 mm[Hg] 73 mm[Hg] [facility] ([facility]) Heart rate 83 /min 83 /min [facility] ([facility]) Body temperature 98.4 [degF] 98.4 [degF] [facility] ([facility]) Respiratory rate 15 /min 15 /min [facility] ( [facility]) Body height 74 [in_i] 74 [in_i] [facility] ([facility]) 6'2" Body weight 235.00 [lb_av] 235.00 [lb_av] MEDEN T ([facility]) Body mass index (BMI) [Ratio] 30.2 kg/m2 30.2 k g/m2 [facility] ([facility]) Systolic blood pressure 126 mm[Hg] 126 mm[Hg] [facility] Diastolic blood pressure 82 mm[Hg] 82 mm[Hg] [facility] Oxygen saturation in Arterial blood by Pulse oximetry 98 % 98 % [facility] Heart rate 66.0 /min 66.0 /min [facility] Respiratory rate 12 /min 12 /min [facility] Body temperature 36.8 Alma Delia 36.8 Alma Delia [facility] Body mass index (BMI) [Ratio] 30.13 kg/m2 30.13 kg/m2 [facility] Systolic blood pressure 120 mm[Hg] 120 mm[Hg] [facility] Diastolic blood pressure 64 mm[Hg] 64 mm[Hg] [facility] Body surface area Derived from formula 2.17 m2 2.17 m2 [facility] Body height 177.8000 cm 177.8000 cm [facility] Oxygen saturation in Arterial blood by Pulse oximetry 100 % 100 % [facility] Heart rate 89.0 /min 89.0 /min [facility] Respiratory rate 18 /min 18 /min [facility] Body temperature 37.3 Alma Delia 37.3 Alma Delia [facility] Body weight 95.25 kg 95.25 kg [facility] Systolic blood pressure 125 mm[Hg] Normal (applies t o non-numeric results) 125 mm[Hg] [facility] Diastolic blood pressure 59 mm[Hg] Normal (applies to non-numeric results) 59 mm[Hg] [facility] Heart rate 66 min Normal (applies to non-numeric resul ts) 66 min [facility] Respiratory rate 18 min Normal (applies to non-numeric results) 18 min [facility] Body temperature 36.5 alma delia Normal (applies to non-numeric results) 36.5 alma delia [facility] Body weight Measured 98.2 kg Normal (applies to non-num nita results) 98.2 kg [facility] Deprecated Oxygen saturation in Capillary blood by Oximetry 96 % Normal (applies to non-numeric results) 96 % [facility] Body height 187.7568 cm Normal (applies to non-numeric res ults) 187.7568 cm [facility] Body height 74.00 [in_i] 74.00 [in_i] [facility] 6'2" Body weight 216.50 [lb_av] 216.50 [lb_av] MEDEN T ([facility]) Body mass index (BMI) [Ratio] 27.8 kg/m2 27.8 k g/m2 [facility] ([facility]) Systolic blood pressure 142 mm[Hg] 142 mm[Hg] [facility] ([facility]) Diastolic blood pressure 70 mm[Hg] 70 mm[Hg] [facility]) Heart rate 66 /min 66 /min [facility] ([facility]) Reg Systolic blood pressure 100 mm[Hg] 100 mm[Hg] [facility] Heart rate 92 /min 92 /min [facility] ([facility]) Body weight 234.00 [lb_av] 234.00 [lb_av] MEDEN T ([facility]) Body mass index (BMI) [Ratio] 30.0 kg/m2 30.0 k g/m2 [facility] ([facility]) Body height 74.00 [in_i] 74.00 [in_i] [facility] 6'2" Diastolic blood pressure 60 mm[Hg] 60 mm[Hg] [facility] ([facility]) Deprecated Oxygen saturation in Capillary blood by Oximetry 100 % Normal (applies to non-numeric results) 100 % [facility] Body weight Measured 109.4 kg Normal (applies to n on-numeric results) 109.4 kg [facility] Systolic blood pressure 115 mm[Hg] Normal (applies t o non-numeric results) 115 mm[Hg] [facility] Diastolic blood pressure 55 mm[Hg] Normal (applies to non-numeric results) 55 mm[Hg] [facility] Heart rate 84 min Normal (applies to non-numeric resul ts) 84 min [facility] Respiratory rate 18 min Normal (applies to non-numeric results) 18 min [facility] Body temperature 37.1 alma delia Normal (applies to non-numeric results) 37.1 alma delia [facility] Body height 187.7568 cm Normal (applies to non-numeric res ults) 187.7568 cm [facility] Systolic blood pressure 130 mm[Hg] 130 mm[Hg] M EDENT ([facility]) Diastolic blood pressure 60 mm[Hg] 60 mm[Hg] [facility] ([facility]) Heart rate 80 /min 80 /min [facility] Body weight 104.328 kg 104.328 kg [facility] Diastolic blood pressure 60 mm[Hg] 60 mm[Hg] [facility] ([facility]) Systolic blood pressure 140 mm[Hg] 140 mm[Hg] M EDENT ([facility]) Body height 74 [in_i] 74 [in_i] [facility] 6'2" Body weight 230.00 [lb_av] 230.00 [lb_av] MEDEN T ([facility]) Body mass index (BMI) [Ratio] 29.5 kg/m2 29.5 k g/m2 [facility] Systolic blood pressure 120 mm[Hg] 120 mm[Hg] [facility] Diastolic blood pressure 80 mm[Hg] 80 mm[Hg] [facility] Body mass index (BMI) [Ratio] 30.30 kg/m2 30.30 kg/m2 [facility] Systolic blood pressure 131 mm[Hg] 131 mm[Hg] [facility] Diastolic blood pressure 56 mm[Hg] 56 mm[Hg] [facility] Body surface area Derived from formula 2.36 m2 2.36 m2 [facility] Body height 187.9600 cm 187.9600 cm [facility] Oxygen saturation in Arterial blood by Pulse oximetry 100 % 100 % [facility] Heart rate 70.0 /min 70.0 /min [facility] Respiratory rate 20 /min 20 /min [facility] Body temperature 36.6 Alma Delia 36.6 Alma Delia [facility] Body weight 107.05 kg 107.05 kg [facility] Body height 187.7568 cm Normal (applies to non-numeric res ults) 187.7568 cm [facility] Body temperature 37.5 alma delia Normal (applies to non-numeric results) 37.5 alma delia [facility] Systolic blood pressure 123 mm[Hg] Normal (applies t o non-numeric results) 123 mm[Hg] [facility] Diastolic blood pressure 45 mm[Hg] Normal (applies to non-numeric results) 45 mm[Hg] [facility] Heart rate 64 min Normal (applies to non-numeric resul ts) 64 min [facility] Respiratory rate 16 min Normal (applies to non-numeric results) 16 min [facility] Deprecated Oxygen saturation in Capillary blood by Oximetry 97 % Normal (applies to non-numeric results) 97 % [facility] Body mass index (BMI) [Ratio] 30.06 kg/m2 No rmal (applies to non-numeric results) 30.06 kg/m2 [facility] Body weight Measured 106.2 kg Normal (applies to n on-numeric results) 106.2 kg [facility] Diastolic blood pressure 66 mm[Hg] 66 mm[Hg] [facility] ([facility]) sitting, left arm, manual Heart rate 77 /min 77 /min [facility] ([facility]) regular Body height 74.00 [in_i] 74.00 [in_i] [facility] ([facility] 6'2" Body weight 250.00 [lb_av] 250.00 [lb_av] MEDEN T ([facility]) with boots on Body mass index (BMI) [Ratio] 32.1 kg/m2 32.1 k g/m2 [facility] ([facility]) Systolic blood pressure 146 mm[Hg] 146 mm[Hg] M EDENT ([facility]) sitting, left arm, manual Oxygen saturation in Arterial blood by Pulse oximetry 99 % 99 % MEDNETO ([facility]) room air ID Date Data Source [id number] 05/26/2021 10:50:00 AM [facility] Name Value Range Interpretation Code Description Data Source(s) Weight (Calculated Kilograms) 105.28 105.28 [facility] Height (Calculated Centimeters) 187.96 187. 96 [facility] Body Mass Index (BMI) 29.7 29.7 [facility] ID Date Data Source [id number] 04/11/2021 12:23:00 AM EDT [facility] Name Value Range Interpretation Code Description Data Source(s) Weight (Calculated Kilograms) 105.28 105.28 [facility] Height (Calculated Centimeters) 187.96 187. 96 [facility] Body Mass Index (BMI) 29.7 29.7 [facility] ID Date Data Source [id number] 09/05/2020 01:58:00 AM [facility] Name Value Range Interpretation Code Description Data Source(s) Weight (Calculated Kilograms) 105.28 105.28 [facility] Height (Calculated Centimeters) 187.96 187. 96 [facility] Body Mass Index (BMI) 29.7 29.7 [facility] Weight (Calculated Kilograms) 105.28 105.28 [facility] Height (Calculated Centimeters) 187.96 187. 96 [facility] Body Mass Index (BMI) 29.7 29.7 [facility] ID Date Data Source [id number] 11/22/2020 09:13:00 AM [facility] Name Value Range Interpretation Code Description Data Source(s) Weight (Calculated Kilograms) 105.28 105.28 [facility] Height (Calculated Centimeters) 187.96 187. 96 [facility] Body Mass Index (BMI) 29.7 29.7 [facility] Weight (Calculated Kilograms) 105.28 105.28 [facility] Height (Calculated Centimeters) 187.96 187. 96 [facility] Body Mass Index (BMI) 29.7 29.7 [facility] Patient Treatment Plan of Care Planned Activity Planned Date Details Description Data Source (s) Ergocalciferol [id number] UNT Oral Capsule 07/04/2021 12:00:00 AM EDT [facility] Melatonin 3 MG Oral Tablet 07/04/2021 12:00:00 AM EDT [facility] Tylenol 8 Hour 650MG Oral Tablet, Extended Release 07/04/2021 12 :00:00 AM EDT [facility] Diclofenac Sodium 0.01 MG/MG Topical Gel 07/04/2021 12:00:00 AM EDT [facility] Vitamin D 5000 IU Oral Capsule 05/16/2021 12:00:00 AM EDT [facility] Pramipexole dihydrochloride 0.5 MG Oral Tablet [Mirape x] 04/12[facility] [Lipitor] 04/12/2021 12:00:00 AM EDT [facility] Ferrous Sulfate 324 MG Oral Tablet, Enteric Coated 04/12/2021 12 :00:00 AM EDT [facility] gabapentin 300 MG Oral Capsule 01/09/2021 12:00:00 AM EDT [facility] carvedilol 6.25 MG Oral Tablet 01/09/2021 12:00:00 AM EDT [facility] gabapentin 300 MG Oral Capsule [facility] 08/31/2020 12:00:00 AM [facility] ezetimibe 10 MG Oral Tablet [Zetia] 08/31/2020 12:00:00 AM [facility] Allopurinol 300 MG Oral Tablet 08/31/2020 12:00:00 AM [facility] apixaban 5 MG Oral Tablet [Eliquis] 08/31/2020 12:00:00 AM [facility] apixaban 5 MG Oral Tablet [Eliquis] 08/31/2020 12:00:00 AM [facility] Allopurinol 300 MG Oral Tablet 08/31/2020 12:00:00 AM [facility] Digoxin 0.125 MG Oral Tablet 08/31/2020 12:00:00 AM [facility] ezetimibe 10 MG Oral Tablet [Zetia] 08/31/2020 12:00:00 AM [facility] Lorazepam 1 MG Oral Tablet 08/31/2020 12:00:00 AM [facility] Cholecalciferol 1000 UNT Oral Tablet 08/31/2020 12:00:00 AM [facility] Glyburide 5 MG Oral Tablet 08/31/2020 12:00:00 AM [facility] apixaban 5 MG Oral Tablet [Eliquis] 08/31/2020 12:00:00 AM [facility] Lorazepam 1 MG Oral Tablet 08/31/2020 12:00:00 AM [facility] gabapentin 100 MG Oral Capsule 08/31/2020 12:00:00 AM [facility] Amiodarone hydrochloride 200 MG Oral Tablet 08/31/2020 12:00:00 AM [facility] clopidogrel 75 MG Oral Tablet [Plavix] 08/31/2020 12:00:00 AM [facility] ezetimibe 10 MG Oral Tablet [Zetia] 08/31/2020 12:00:00 AM [facility] sitagliptin 100 MG Oral Tablet [Januvia] 08/31/2020 12:00:00 AM [facility] Digoxin 0.125 MG Oral Tablet 08/31/2020 12:00:00 AM [facility] Pramipexole dihydrochloride 0.5 MG Oral Tablet [Mirape x] 08/31/2020 12:00:00 AM [facility] sacubitril 97 MG / valsartan 103 MG Oral Tablet [Entre sto] 08/31/2020 12:00:00 AM [facility] Spironolactone 25 MG Oral Tablet 08/31/2020 12:00:00 AM [facility] atorvastatin 80 MG Oral Tablet [Lipitor] 08/31/2020 12:00:00 AM [facility] pantoprazole 20 MG Delayed Release Oral Tablet [Proton ix] 08/31/2020 12:00:00 AM [facility] Furosemide 40 MG Oral Tablet 08/31/2020 12:00:00 AM [facility] Allopurinol 300 MG Oral Tablet 08/31/2020 12:00:00 AM [facility] carvedilol 12.5 MG Oral Tablet 08/31/2020 12:00:00 AM EST [facility]
[2021-08-23] MEDS ORDERED: ALBUTEROL 90 MCG/ACT 8GM HFA INHALER INH PRN (01:00)
[2021-08-23] MEDS: PANTOPRAZOLE 40MG VIAL (C9113 PER 1) IV SCH (02:00)
[2021-08-23] MEDS ORDERED: REMDESIVIR 200 MG in NS 250 ML IV ONE ×2 (02:00→08:00)
[2021-08-23] MEDS: IPRATROPIUM 0.5MG/ALBUTEROL 2.5MG INH SOL UD 3ML (DUONEB) NEB SCH (03:15)
[2021-08-23] MEDS ORDERED: SODIUM CHLORIDE 0.9% INJ 10 ML SYR IV ONE ×2 (04:00→10:00)
[2021-08-23] MEDS: cefTRIAXone SOD 1 GM in D5W MINI-BAG PLUS 50 ML IV SCH (04:00)
[2021-08-23] MEDS ORDERED: GLUCOSE 4GM CHEW TABLET PO PRN (04:05)
[2021-08-23] MEDS ORDERED: GLUCAGON INJ 1MG VIAL SC PRN (04:05)
[2021-08-23] MEDS ORDERED: DEXTROSE 50% 50 ML SYRINGE IV PRN (04:05)
[2021-08-23 05:08] LABS: HEMATOCRIT 31.5 % (42.0-52.0); HEMOGLOBIN 9.9 g/dl (13.5-17.5); LYMPH # 0.3 10^3/uL (1.5-5.0); LYMPH % 5.6 % (24.0-44.0); MEAN CORPUSCULAR HEMOGLOBIN 29.7 pg (27.0-33.0); MEAN CORPUSCULAR HGB CONC 31.4 g/dl (32.0-36.5); MEAN CORPUSCULAR VOLUME 94.6 fl (80.0-96.0); MONO # 0.1 10^3/uL (0.0-0.8); MONO % 2.3 % (2.0-8.0); NEUTROPHILS # 5.5 10^3/uL (1.5-8.5); NEUTROPHILS % 91.6 % (36.0-66.0); PLATELET COUNT, AUTOMATED 145 10^3/uL (150-450); RED BLOOD COUNT 3.33 10^6/uL (4.30-6.10); WHITE BLOOD COUNT 6.1 10^3/uL (4.0-10.0)
[2021-08-23 05:37] LABS: CALCIUM LEVEL 7.6 MG/DL (8.8-10.2); CREATININE FOR GFR 2.5 MG/DL (0.70-1.30); GLOMERULAR FILTRATION RATE 27.6 (>49); MAGNESIUM LEVEL 2.3 MG/DL (1.8-2.4); POTASSIUM SERUM 4.2 MEQ/L (3.5-5.1)
[2021-08-23] MEDS: DOXYCYCLINE HYCLATE 100 MG in D5W MINI-BAG PLUS 100 ML IV SCH ×2 (06:46→17:53)
[2021-08-23] MEDS: HumaLOG INSULIN (NovoLOG) PER UNIT SC SCH ×4 (08:09→21:30)
[2021-08-23] MEDS: DOCUSATE SODIUM 100MG CAPSULE PO SCH ×2 (08:09→21:30)
[2021-08-23] MEDS: AMIODARONE 200 MG TAB (PACERONE) PO SCH (08:09)
[2021-08-23] MEDS: dexameTHASONE 4 MG/ML 1ML VIAL (J1100 PER 1MG) IV SCH (08:10)
[2021-08-23] MEDS: CARVedilol 6.25 MG TAB PO SCH ×2 (08:10→21:00)
[2021-08-23] MEDS: APIXABAN 5 MG TAB (ELIQUIS) PO SCH ×2 (08:10→21:31)
[2021-08-23] MEDS ORDERED: PRAMIPEXOLE 0.25 MG TAB PO SCH (09:00)
[2021-08-23] MEDS ORDERED: FUROSEMIDE 40 MG TAB PO SCH (09:00)
[2021-08-23] MEDS ORDERED: VITAMIN D 1,000 INTERNATIONAL UNITS TABLET PO SCH (09:00)
--- NOTE | 2021-08-23 12:13 | IPNPDOC ---
Subjective Date Seen The patient was seen on 08/23/21. Subjective Chief Complaint/HPI Sob better than yesterday. Had very good diuresis overnight with negative of 1400ml oxygen requirement down to 4 to 5 l/ min. Continues to have cough not much phlegm production. Objective Physical Examination General Exam: Positive: Alert, Cooperative, No Acute Distress Eye Exam: Positive: PERRLA, Conjunctiva & lids normal, EOMI; Negative: Sclera icteric ENT Exam: Positive: Atraumatic, Mucous membr. moist/pink, Pharynx Normal Neck Exam: Positive: Supple, JVD; Negative: thyromegaly Chest Exam: Positive: Rhonchi, Wheezing, Other (crackles at both the bases) Heart Exam: Positive: Rate Normal, Regular Rhythm, Normal S1, Normal S2; Negative: Murmurs, Rubs Telemetry: Positive: PVCs Abdomen Exam: Positive: Normal bowel sounds, Soft; Negative: Tenderness Extremity Exam: Negative: Clubbing, Cyanosis, Edema Psych Exam: Positive: Memory Intact, Oriented x 3 Assessment /Plan Assessment This is a 66-year-old male with PMH of chronic Afib, CAD s/p CABG, DM, CKD stage 4, Chronic Systolic CHF with AICD in place progressively worsening shortness of breath since 08/13. It eventually became bad enough that he felt like he could not move without becoming severely fatigued so he presented to [facility] urgent care on 08/18 where he was diagnosed with a CHF exacerbation with a BNP 18,000 per ED staff and was given some Lasix and discharged. At that time he was negative for Covid. He returned 2 days later with persistent symptoms and was retested and found to be positive for Covid on 08/20. He was sent to a [facility] for outpatient monoclonal antibodies as he was on room air at that time. He received monoclonal antibody infusion on 08/22/21, without event and per documentation was on room air at that time as well. After he ret urned home he again felt progressively worsening shortness of breath and ultimately called EMS and was instructed to continue on to [facility] for evaluation given that he just received the monoclonal treatment here. In the ED he was on nonrebreather and ultimately required both Vapotherm on top of nonrebreather in order to maintain saturations of 90%. Lab work demonstrated a BNP of 13,000 with a chest x-ray showing bilateral pneumonia and signs of fluid overload. He was given 80 mg of IV Lasix in the emergency department. He was admitted for COVID pneumonia with acute hypoxic respiratory failure and CHF exacerbation. Acute hypoxic respiratory failure Due to CHF exacerbation and COVID pneumonia Now requiring 5-6 liters of high flow oxygen. COVID pneumonia continue dexamethasone, remdesevir, inhalors. If procalcitonin is not elevated will dc antibiotics. Systolic CHF exacerbation COntinue with Lasix, daily weights, I/O Echo. will hold entresto for now to allow good Bps for diuresis. Elevated troponin due to Hypoxia, CHF, CKD. CKD stage 4 creatinine appears to be at baseline. Will continue to monitor. Hold entresto. CAD s/p CABG in 2009 with h/o ischemic cardiomyopathy contiue ezitemibe, eliquis DM with neuropathy Levemir and lispro, gabapentin FS ac and hs Gout allopurinol Chronic afib continue coreg, amiodarone and digoxin and eliquis. RLS on pramipaxole. Plan/VTE VTE Prophylaxis Ordered?: Yes VS, I&O, 24H, Fishbone Vital Signs/I&O Vital Signs Date Time Temp Pulse Resp B/P (MAP) Pulse Ox O2 Delivery O2 Flow Rate FiO2 08/23/21 08:10 64 135/63 08/23/21 04:30 98.2 20 91 Nasal Cannula 6.0 08/23/21 04:15 96 I&O- Last 24 Hours up to 6 AM 08/23/21 06:00 Intake Total 600 ml Output Total 2000 ml Balance -1400 ml Laboratory Data 24H LABS Laboratory Tests 2 08/22/21 22:09: Total Creatine Kinase 381H, Creatine Kinase MB 1.3, Creatine Kinase MB Relative Index 0.34, Troponin I High Sensitivity 106.0H 08/22/21 22:12: Blood Gas Bicarbonate Standard 16.7L, Arterial Blood pH 7.226*L, Arterial Blood Partial Pressure CO2 42.8, Arterial Blood Partial Pressure O2 123.9H, Arterial Blood Total CO2 18.7L, Arterial Blood HCO3 17.4L, Arterial Blood Base Excess - 9.8L, Arterial Blood Oxygen Saturation 98.3 08/22/21 22:16: Immature Granulocyte % (Auto) 0.5, Neutrophils (%) (Auto) 78.5H, Lymphocytes (%) (Auto) 14.1L, Monocytes (%) (Auto) 5.5, Eosinophils (%) (Auto) 1.2, Basophils (%) (Auto) 0.2, Neutrophils # (Auto) 8.6H, Lymphocytes # (Auto) 1.6, Monocytes # (Auto) 0.6, Eosinophils # (Auto) 0.1, Basophils # (Auto) 0.0, Nucleated Red Blood Cells % (auto) 0.0, Prothrombin Time 22.6H, Prothromb Time International Ratio 1.95, Activated Partial Thromboplast Time 44.1H, D-Dimer, Quantitative 1676.31H, Anion Gap 11, Glomerular Filtration Rate 28.2L, Lactic Acid Level 1.5, Calcium Level 7.4L, Ferritin 99, Total Bilirubin 0.6, Aspartate Amino Transf (AST/SGOT) 30, Alanine Aminotransferase (ALT/SGPT) 24, Alkaline Phosphatase 79, Lactate Dehydrogenase 236, C-Reactive Protein, Quantitative 2.61H, HO-Sfo-F-Type Natriuretic Peptide 44884Z, Total Protein 7.1, Albumin 3.0L, Albumin/Globulin Ratio 0.7 08/22/21 23:03: POC Troponin I (Misc) 0.13H 08/22/21 23:48: Blood Gas Bicarbonate Standard 18.3L, Arterial Blood pH 7.390, Arterial Blood Partial Pressure CO2 27.4L, Arterial Blood Partial Pressure O2 78.9, Arterial Blood Total CO2 17.1L, Arterial Blood HCO3 16.2L, Arterial Blood Base Excess - 7.6L, Arterial Blood Oxygen Saturation 95.8 08/22/21 23:56: Troponin I High Sensitivity 242.0*H 08/23/21 01:39: Troponin I High Sensitivity 422.0*H 08/23/21 04:49: Troponin I High Sensitivity 527.0*H, Immature Granulocyte % (Auto) 0.5, Neutrophils (%) (Auto) 91.6H, Lymphocytes (%) (Auto) 5.6L, Monocytes (%) (Auto) 2.3, Eosinophils (%) (Auto) 0.0, Basophils (%) (Auto) 0.0, Neutrophils # (Auto) 5.5, Lymphocytes # (Auto) 0.3L, Monocytes # (Auto) 0.1, Eosinophils # (Auto) 0.0, Basophils # (Auto) 0.0, Nucleated Red Blood Cells % (auto) 0.0, Anion Gap 11, Glomerular Filtration Rate 27.6L, Calcium Level 7.6L, Magnesium Level 2.3 CBC/BMP Laboratory Tests 08/22/21 22:16 08/23/21 04:49 Microbiology Microbiology 08/22/21 Blood Culture, Received Pending 08/22/21 Blood Culture, Received Pending Kaye Carrasco MD Aug 23, 2021 10:36
[2021-08-23] MEDS: ALBUTEROL 90 MCG/ACT 8GM HFA INHALER INH SCH ×2 (13:07→15:23)
[2021-08-23] MEDS: FUROSEMIDE 100MG/10ML VIAL (J1940) IV SCH (17:52)
--- NOTE | 2021-08-23 18:54 | ECGEPIP ---
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
--- NOTE | 2021-08-23 20:26 | ECGEPIP ---
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
[2021-08-23] MEDS: GABAPENTIN 300 MG CAP PO SCH (21:30)
[2021-08-23] MEDS: EZETIMIBE 10MG TABLET (ZETIA) PO SCH (21:30)
[2021-08-23] MEDS: PRAMIPEXOLE 0.25 MG TAB PO SCH (21:30)
[2021-08-23] MEDS: LEVEMIR (INSULIN DETEMIR) 1 UNITS/0.01ML SC SCH (21:30)
[2021-08-23] MEDS: allopurinoL 300 MG TAB PO SCH (21:30)
[2021-08-24] MEDS: PANTOPRAZOLE 40MG VIAL (C9113 PER 1) IV SCH (01:29)
[2021-08-24] MEDS: ALBUTEROL 90 MCG/ACT 8GM HFA INHALER INH SCH ×4 (01:32→19:52)
[2021-08-24] MEDS: cefTRIAXone SOD 1 GM in D5W MINI-BAG PLUS 50 ML IV SCH (04:09)
[2021-08-24] MEDS: DOXYCYCLINE HYCLATE 100 MG in D5W MINI-BAG PLUS 100 ML IV SCH ×2 (05:23→17:25)
[2021-08-24 05:49] VITALS: BP 113/55
[2021-08-24 06:28] LABS: HEMATOCRIT 28.2 % (42.0-52.0); HEMOGLOBIN 9.1 g/dl (13.5-17.5); LYMPH # 0.5 10^3/uL (1.5-5.0); LYMPH % 9.3 % (24.0-44.0); MEAN CORPUSCULAR HEMOGLOBIN 29.2 pg (27.0-33.0); MEAN CORPUSCULAR HGB CONC 32.3 g/dl (32.0-36.5); MEAN CORPUSCULAR VOLUME 90.4 fl (80.0-96.0); MONO # 0.2 10^3/uL (0.0-0.8); MONO % 4.6 % (2.0-8.0); NEUTROPHILS # 4.1 10^3/uL (1.5-8.5); NEUTROPHILS % 85.7 % (36.0-66.0); PLATELET COUNT, AUTOMATED 134 10^3/uL (150-450); RED BLOOD COUNT 3.12 10^6/uL (4.30-6.10); WHITE BLOOD COUNT 4.8 10^3/uL (4.0-10.0)
[2021-08-24 06:48] LABS: CREATININE FOR GFR 1.94 MG/DL (0.70-1.30); GLOMERULAR FILTRATION RATE 36.9 (>49); MAGNESIUM LEVEL 2.2 MG/DL (1.8-2.4); POTASSIUM SERUM 3.7 MEQ/L (3.5-5.1)
[2021-08-24] MEDS: CARVedilol 6.25 MG TAB PO SCH ×2 (08:27→22:04)
[2021-08-24] MEDS: APIXABAN 5 MG TAB (ELIQUIS) PO SCH ×2 (08:27→22:04)
[2021-08-24] MEDS: AMIODARONE 200 MG TAB (PACERONE) PO SCH (08:28)
[2021-08-24] MEDS: DOCUSATE SODIUM 100MG CAPSULE PO SCH ×2 (08:28→22:03)
[2021-08-24] MEDS: dexameTHASONE 4 MG/ML 1ML VIAL (J1100 PER 1MG) IV SCH (08:29)
[2021-08-24] MEDS: FUROSEMIDE 100MG/10ML VIAL (J1940) IV SCH ×2 (08:29→17:25)
[2021-08-24] MEDS: PRAMIPEXOLE 1 MG TAB PO SCH (08:38)
[2021-08-24] MEDS: HumaLOG INSULIN (NovoLOG) PER UNIT SC SCH ×4 (08:39→22:05)
[2021-08-24] MEDS: REMDESIVIR 100 MG in NS 250 ML IV SCH (08:39)
[2021-08-24] MEDS ORDERED: DIGOXIN 0.125 MG TAB PO SCH (09:00)
[2021-08-24] MEDS: SODIUM CHLORIDE 0.9% INJ 10 ML SYR IV SCH (09:07)
--- NOTE | 2021-08-24 11:13 | IPNPDOC ---
Subjective Date Seen The patient was seen on 08/24/21. Subjective Chief Complaint/HPI Patient feeling much better this morning. His shortness of breath has improved. He has been off oxygen since last night. Objective Physical Examination General Exam: Positive: Alert, Cooperative, No Acute Distress Eye Exam: Positive: PERRLA, Conjunctiva & lids normal, EOMI; Negative: Sclera icteric ENT Exam: Positive: Atraumatic, Mucous membr. moist/pink, Pharynx Normal Neck Exam: Positive: Supple, JVD; Negative: thyromegaly Chest Exam: Positive: Normal air movement, Other (crackles at both the bases) Heart Exam: Positive: Rate Normal, Regular Rhythm, Normal S1, Normal S2; Negative: Murmurs, Rubs Telemetry: Positive: PVCs Abdomen Exam: Positive: Normal bowel sounds, Soft; Negative: Tenderness Extremity Exam: Negative: Clubbing, Cyanosis, Edema Psych Exam: Positive: Memory Intact, Oriented x 3 Assessment /Plan Assessment This is a 66-year-old male with PMH of chronic Afib, CAD s/p CABG, DM, CKD stage 4, Chronic Systolic CHF with AICD in place progressively worsening shortness of breath since 08/13. It eventually became bad enough that he felt like he could not move without becoming severely fatigued so he presented to [facility] [place] urgent care on 08/18 where he was diagnosed with a CHF exacerbation with a BNP 18,000 per ED staff and was given some Lasix and discharged. At that time he was negative for Covid. He returned 2 days later with persistent symptoms and was retested and found to be positive for Covid on 08/20. He was sent to a [facility] for outpatient monoclonal antibodies as he was on room air at that time. He received monoclonal antibody infusion on 08/22/21, without event and per documentation was on room air at that time as well. After he returned home he again felt progressively worsening shortness of breath and ultimately called EMS and was instructed to continue on to [facility] for evaluation given that he just received the monoclonal treatment here. In the ED he was on nonrebreather and ultimately required both Vapotherm on top of nonrebreather in order to maintain saturations of 90%. Lab work demonstrated a BNP of 13,000 with a chest x-ray showing bilateral pneumonia and signs of fluid overload. He was given 80 mg of IV Lasix in the emergency department. He was admitted for COVID pneumonia with acute hypoxic respiratory failure and CHF exacerbation. Acute hypoxic respiratory failure Due to CHF exacerbation and COVID pneumonia Now resolved He is off oxygen COVID pneumonia likely secondary bacterial pneumonia continue dexamethasone, remdesevir, inhalors and antibiotics Procalcitonin is very high at 50.2 Continue on antibiotics Systolic CHF exacerbation Continue with Lasix, daily weights, I/O Echo done report pending. will hold entresto for now to allow good Bps for diuresis. Elevated troponin due to Hypoxia, CHF, CKD. CKD stage 4 creatinine appears to be at baseline. Will continue to monitor. Hold entresto. CAD s/p CABG in 2009 with h/o ischemic cardiomyopathy contiue ezitemibe, eliquis DM with neuropathy Levemir and lispro, gabapentin FS ac and hs Sugars remain high will increase dose of 11 Gout allopurinol Chronic afib continue coreg, amiodarone and digoxin and eliquis. RLS on pramipaxole. Plan/VTE VTE Prophylaxis Ordered?: Yes VS, I&O, [facility] Vital Signs/I&O Vital Signs Date Time Temp Pulse Resp B/P (MAP) Pulse Ox O2 Delivery O2 Flow Rate FiO2 08/24/21 08:27 61 113/55 08/24/21 07:37 17 08/24/21 05:49 99.1 95 Room Air 08/23/21 16:00 2.0 08/23/21 04:15 96 I&O- Last 24 Hours up to 6 AM 08/24/21 06:00 Intake Total 1790 ml Output Total 2100 ml Balance -310 ml Laboratory Data 24H LABS Laboratory Tests 2 08/23/21 12:08: Bedside Glucose (Misc Panel) 315H 08/23/21 17:27: Bedside Glucose (Misc Panel) 295H 08/23/21 20:29: Bedside Glucose (Misc Panel) 287H 08/24/21 05:17: Bedside Glucose (Misc Panel) 277H 08/24/21 05:46: Immature Granulocyte % (Auto) 0.4, Neutrophils (%) (Auto) 85.7H, Lymphocytes (%) (Auto) 9.3L, Monocytes (%) (Auto) 4.6, Eosinophils (%) (Auto) 0.0, Basophils (%) (Auto) 0.0, Neutrophils # (Auto) 4.1, Lymphocytes # (Auto) 0.5L, Monocytes # (Auto) 0.2, Eosinophils # (Auto) 0.0, Basophils # (Auto) 0.0, Nucleated Red Blood Cells % (auto) 0.0, Anion Gap 7L, Glomerular Filtration Rate 36.9L, Calcium Level 8.0L, Magnesium Level 2.2 CBC/BMP Laboratory Tests 08/24/21 05:46 Microbiology Microbiology 08/22/21 Blood Culture - Preliminary, Resulted No growth after 24 hours . All specim... 08/22/21 Blood Culture - Preliminary, Resulted No growth after 24 hours . All specim... Kaye Carrasco MD Aug 24, 2021 11:13
[2021-08-24] MEDS: LEVEMIR (INSULIN DETEMIR) 1 UNITS/0.01ML SC SCH ×2 (12:02→22:06)
[2021-08-24 13:40] LABS: APPEARANCE, URINE CLEAR (CLEAR); BACTERIA, URINE AUTO NEGATIVE (NEGATIVE); BILIRUBIN, URINE AUTO NEGATIVE (NEGATIVE); BLOOD, URINE BLOOD 1+ (NEGATIVE); COLOR, URINE STRAW (YELLOW); GLUCOSE, URINE (UA) AUTO NEGATIVE (NEGATIVE); KETONE, URINE AUTO NEGATIVE (NEGATIVE); LEUKOCYTE ESTERASE, URINE AUTO NEGATIVE (NEGATIVE); NITRITE, URINE AUTO NEGATIVE (NEGATIVE); PROTEIN, URINE AUTO NEGATIVE (NEGATIVE); RBC, URINE AUTO 0 /HPF (0-3); SPECIFIC GRAVITY URINE AUTO 1.008 (1.002-1.035); SQUAMOUS EPITHELIAL CELL UR AU 0 /HPF (0-6); UROBILINOGEN, URINE AUTO 0.2 mg/dL (0.0-2.0); WBC, URINE AUTO 0 /HPF (0-3)
[2021-08-24 14:00] VITALS: BP 135/66
[2021-08-24 17:07] LABS: MYCOPLASMA PNEUMONIAE IgG 378 U/mL (0-99); MYCOPLASMA PNEUMONIAE IgM <770 U/mL (0-769)
[2021-08-24 20:00] VITALS: BP 147/67
[2021-08-24] MEDS: GABAPENTIN 300 MG CAP PO SCH (22:03)
[2021-08-24] MEDS: allopurinoL 300 MG TAB PO SCH (22:04)
[2021-08-24] MEDS: EZETIMIBE 10MG TABLET (ZETIA) PO SCH (22:04)
[2021-08-24] MEDS: PRAMIPEXOLE 0.25 MG TAB PO SCH (22:05)
[2021-08-25] MEDS: PANTOPRAZOLE 40MG VIAL (C9113 PER 1) IV SCH (01:29)
[2021-08-25] MEDS: ALBUTEROL 90 MCG/ACT 8GM HFA INHALER INH SCH ×3 (03:15→14:36)
[2021-08-25] MEDS: cefTRIAXone SOD 1 GM in D5W MINI-BAG PLUS 50 ML IV SCH (03:15)
[2021-08-25] MEDS: DOXYCYCLINE HYCLATE 100 MG in D5W MINI-BAG PLUS 100 ML IV SCH ×2 (05:39→14:12)
[2021-08-25] MEDS: dexameTHASONE 4 MG/ML 1ML VIAL (J1100 PER 1MG) IV SCH (08:11)
[2021-08-25] MEDS: HumaLOG INSULIN (NovoLOG) PER UNIT SC SCH ×2 (08:12→11:46)
[2021-08-25] MEDS: LEVEMIR (INSULIN DETEMIR) 1 UNITS/0.01ML SC SCH (08:12)
[2021-08-25] MEDS: FUROSEMIDE 100MG/10ML VIAL (J1940) IV SCH (08:12)
[2021-08-25] MEDS: DOCUSATE SODIUM 100MG CAPSULE PO SCH (08:13)
[2021-08-25 08:14] VITALS: BP 147/67
[2021-08-25] MEDS: CARVedilol 6.25 MG TAB PO SCH (08:14)
[2021-08-25] MEDS: AMIODARONE 200 MG TAB (PACERONE) PO SCH (08:14)
[2021-08-25] MEDS: REMDESIVIR 100 MG in NS 250 ML IV SCH (08:15)
[2021-08-25] MEDS: APIXABAN 5 MG TAB (ELIQUIS) PO SCH (08:15)
[2021-08-25] MEDS: SODIUM CHLORIDE 0.9% INJ 10 ML SYR IV SCH (08:16)
[2021-08-25 08:24] LABS: HEMATOCRIT 32.5 % (42.0-52.0); HEMOGLOBIN 10.2 g/dl (13.5-17.5); LYMPH # 0.8 10^3/uL (1.5-5.0); LYMPH % 15.1 % (24.0-44.0); MEAN CORPUSCULAR HEMOGLOBIN 29.1 pg (27.0-33.0); MEAN CORPUSCULAR HGB CONC 31.4 g/dl (32.0-36.5); MEAN CORPUSCULAR VOLUME 92.6 fl (80.0-96.0); MONO # 0.2 10^3/uL (0.0-0.8); MONO % 4.4 % (2.0-8.0); NEUTROPHILS # 4.4 10^3/uL (1.5-8.5); NEUTROPHILS % 79.8 % (36.0-66.0); PLATELET COUNT, AUTOMATED 145 10^3/uL (150-450); RED BLOOD COUNT 3.51 10^6/uL (4.30-6.10); WHITE BLOOD COUNT 5.5 10^3/uL (4.0-10.0)
[2021-08-25 08:45] LABS: ALBUMIN 2.6 GM/DL (3.2-5.2); BILIRUBIN,DIRECT 0.1 MG/DL (0.0-0.2); BILIRUBIN,TOTAL 0.3 MG/DL (0.2-1.0); CREATININE FOR GFR 1.6 MG/DL (0.70-1.30); GLOMERULAR FILTRATION RATE 46.1 (>49); MAGNESIUM LEVEL 2.1 MG/DL (1.8-2.4); POTASSIUM SERUM 3.5 MEQ/L (3.5-5.1); TOTAL PROTEIN 6.5 GM/DL (6.4-8.2)
[2021-08-25 08:49] LABS: INR 1.64; PROTHROMBIN TIME 19.8 SECONDS (12.7-14.5)
[2021-08-25] MEDS: PRAMIPEXOLE 1 MG TAB PO SCH (08:52)
[2021-08-25] MEDS ORDERED: DOXY100T PO ×2 (12:40→15:39)
[2021-08-25] MEDS ORDERED: PANT40TA29 PO ×2 (12:40→15:39)
[2021-08-25] MEDS ORDERED: LASI80TA3 PO ×2 (12:40→15:39)
[2021-08-25] MEDS ORDERED: CEFD300CAP PO ×2 (12:40→15:39)
[2021-08-25] MEDS ORDERED: PRED10TA2 PO ×2 (12:40→15:39)
--- NOTE | 2021-08-25 13:38 | DS.PDOC ---
Discharge Summary General Date of Admission Aug 22, 2021 at 23:41 Date of Discharge 08/25/21 Discharge Summary PROCEDURES PERFORMED DURING STAY: [None]. DISCHARGE DIAGNOSES: Covid pneumonia Bacterial pneumonia Acute systolic CHF exacerbation Acute respiratory failure with hypoxia AUDRA on CKD SECONDARY DIAGNOSIS: Chronic Afib, CAD s/p CABG, DM with neuropathy, CKD, Chronic Systolic CHF with AICD, gout, restless leg syndrome COMPLICATIONS/CHIEF COMPLAINT: Acute On Chronic Renal Failure,Chf Exacerbation. HOSPITAL COURSE: This is a 66-year-old male with PMH of chronic Afib, CAD s/p CABG, DM, CKD stage 4, Chronic Systolic CHF with AICD in place progressively worsening shortness of breath since 08/13. It eventually became bad enough that he felt like he could not move without becoming severely fatigued so he presented to [facility] urgent care on 08/18 where he was diagnosed with a CHF exacerbation with a BNP 18,000 per ED staff and was given some Lasix and discharged. At that time he was negative for Covid. He returned 2 days later with persistent symptoms and was retested and found to be positive for Covid on 08/20. He was sent to a [facility] for outpatient monoclonal antibodies as he was on room air at that time. He received monoclonal antibody infusion on 08/22/21, without event and per documentation was on room air at that time as well. After he returned home he again felt progressively worsening shortness of breath and ultimately called EMS and was instructed to continue on to [facility] for evaluation given that he just received the monoclonal treatment here. In the ED he was on nonrebreather and ultimately required both Vapotherm on top of nonrebreather in order to maintain saturations of 90%. Lab work demonstrated a BNP of 13,000 with a chest x-ray showing bilateral pneumonia and signs of fluid overload. He was given 80 mg of IV Lasix in the emergency department. He was admitted for COVID pneumonia with acute hypoxic respiratory failure and CHF exacerbation. Acute hypoxic respiratory failure Due to CHF exacerbation and COVID pneumonia Now resolved He is off oxygen COVID pneumonia and secondary bacterial pneumonia Continue on steroid taper, cefdinir and doxycycline Procalcitonin was very high at 50.2 now down to 32 Blood cultures are negative at 48 hours Systolic CHF exacerbation Continue with Lasix 80 mg p.o. daily, daily weights, I/O Echo done report pending. will hold entresto as just recovering from AUDRA Elevated troponin due to Hypoxia, CHF, CKD. AUDRA on CKD Unknown baseline But today creatinine has improved to 1.6 Stopped Entresto Patient to discuss with disability coordinator and technical account representative regarding when to restart Entresto CAD s/p CABG in 2009 with h/o ischemic cardiomyopathy continue ezitemibe, eliquis DM with neuropathy Levemir and lispro, gabapentin FS ac and hs Sugars remain high will increase dose of 11 Gout allopurinol Chronic afib continue coreg, amiodarone and digoxin and eliquis. RLS on pramipaxole. DISCHARGE MEDICATIONS: Please see below. ALLERGIES: Please see below. PHYSICAL EXAMINATION ON DISCHARGE: VITAL SIGNS: Please see below. General Exam: Positive: Alert, Cooperative, No Acute Distress Eye Exam: Positive: PERRLA, Conjunctiva & lids normal, EOMI; Negative: Sclera icteric ENT Exam: Positive: Atraumatic, Mucous membr. moist/pink, Pharynx Normal Neck Exam: Positive: Supple, JVD; Negative: thyromegaly Chest Exam: Positive: Normal air movement, Other (crackles at both the bases) Heart Exam: Positive: Rate Normal, Regular Rhythm, Normal S1, Normal S2; Negative: Murmurs, Rubs Telemetry: Positive: PVCs Abdomen Exam: Positive: Normal bowel sounds, Soft; Negative: Tenderness Extremity Exam: Negative: Clubbing, Cyanosis, Edema Psych Exam: Positive: Memory Intact, Oriented x 3 LABORATORY DATA: Please see below. IMAGING: CXR: Tubes, catheters and devices: Pacemaker in expected location. Lungs: Large confluent areas of airspace consolidation in both lungs. No masses are seen. Pleural spaces: No pleural effusion. No pneumothorax. Heart/Mediastinum: Prominent cardiomegaly. Bones/joints: Previous sternotomy. IMPRESSION: 1. Bilateral pneumonia with extensive airspace opacities in both lungs. 2. Cardiomegaly. ACTIVITY: [As tolerated]. DIET: Carb consistent, 2 g sodium fluid restriction 2 L DISCHARGE PLAN: Home DISCHARGE INSTRUCTIONS: Follow-up with PMD in 2-week, follow-up with own disability coordinator and technical account representative DISCHARGE CONDITION: [Stable]. TIME SPENT ON DISCHARGE: 35 minutes. Vital Signs/I&Os Vital Signs Date Time Temp Pulse Resp B/P (MAP) Pulse Ox O2 Delivery O2 Flow Rate FiO2 12/4/21 08:14 79 147/67 08/24/21 20:00 97.3 18 96 Room Air 08/23/21 16:00 2.0 08/23/21 04:15 96 I&O- Last 24 Hours up to 6 AM 08/25/21 05:59 Intake Total 1400 ml Output Total 2500 ml Balance -1100 ml Laboratory Data Labs 24H Laboratory Tests 2 08/24/21 16:29: Bedside Glucose (Misc Panel) 249H 08/24/21 20:28: Bedside Glucose (Misc Panel) 335H 08/25/21 06:05: Bedside Glucose (Misc Panel) 209H 08/25/21 07:29: Immature Granulocyte % (Auto) 0.7, Neutrophils (%) (Auto) 79.8H, Lymphocytes (%) (Auto) 15.1L, Monocytes (%) (Auto) 4.4, Eosinophils (%) (Auto) 0.0, Basophils (%) (Auto) 0.0, Neutrophils # (Auto) 4.4, Lymphocytes # (Auto) 0.8L, Monocytes # (Auto) 0.2, Eosinophils # (Auto) 0.0, Basophils # (Auto) 0.0, Nucleated Red Blood Cells % (auto) 0.0, Prothrombin Time 19.8H, Prothromb Time International Ratio 1.64, Activated Partial Thromboplast Time 39.0H, Fibrinogen 385, Anion Gap 10, Glomerular Filtration Rate 46.1L, Calcium Level 8.0L, Magnesium Level 2.1, Ferritin 229, Total Bilirubin 0.3, Direct Bilirubin 0.1, Aspartate Amino Transf (AST/SGOT) 43H, Alanine Aminotransferase (ALT/SGPT) 65, Alkaline Phosphatase 66, Lactate Dehydrogenase 196, Total Creatine Kinase 208, Troponin I High Sensitivi ty 109.0H, MC-Xkr-O-Type Natriuretic Peptide 44127C, Total Protein 6.5, Albumin 2.6L, Albumin/Globulin Ratio 0.7, Procalcitonin 32.47 08/25/21 11:37: Bedside Glucose (Misc Panel) 219H CBC/BMP Laboratory Tests 08/25/21 07:29 FSBS Laboratory Tests Test 08/24/21 16:29 08/24/21 20:28 08/25/21 06:05 08/25/21 11:37 Range/Units Bedside Glucose (Misc Panel) 249 335 209 219 80-115 MG/DL Microbiology Microbiology 08/22/21 Blood Culture - Preliminary, Resulted No Growth after 48 hours. All Specime... 08/22/21 Blood Culture - Preliminary, Resulted No Growth after 48 hours. All Specime... Discharge Medications Scheduled Amiodarone HCl (Amiodarone HCl) 200 Mg Tablet, 200 MG PO DAILY, (Reported) Apixaban (Eliquis) 5 Mg Tablet, 5 MG PO BID, (Reported) Carvedilol (Carvedilol) 6.25 Mg Tablet, 6.25 MG PO BID, (Reported) Cefdinir (Cefdinir) 300 Mg Capsule, 1 CAP PO BID Cholecalciferol (Vitamin D3) (Vitamin D3) 1,000 Unit Tablet, 1,000 UNITS PO DAILY, (Reported) Digoxin (Digoxin) 125 Mcg Tablet, 125 MCG PO 3XW, (Reported) FRIDAY, FRIDAY AND FRIDAY Doxycycline Hyclate (Doxycycline Hyclate) 100 Mg Tablet, 1 TAB PO BID Ezetimibe (Ezetimibe) 10 Mg Tablet, 10 MG PO QHS, (Reported) Furosemide (Lasix) 80 Mg Tablet, 1 TAB PO DAILY Gabapentin (Gabapentin) 300 Mg Capsule, 300 MG PO QHS, (Reported) Insulin Glargine (Lantus) 100 Unit/1 Ml Vial, 1 DOSE SC BID, (Reported) PER SLIDING SCALE Pantoprazole Sodium (Pantoprazole Sodium) 40 Mg Tablet.dr, 1 TAB PO DAILY Pramipexole Di-HCl (Mirapex) 0.5 Mg Tablet, 1 MG PO DAILY, (Reported) Pramipexole Di-HCl (Mirapex) 0.5 Mg Tablet, 0.5 MG PO QHS, (Reported) Prednisone (Prednisone) 10 Mg Tablet, 10 MG PO TAPER Take 4 tabs daily x 3 days, then 3 tabs daily x 3 days, then 2 tabs daily x 3 days, then 1 tab daily x 3 days and stop allopurinoL (allopurinoL) 300 Mg Tablet, 300 MG PO QHS, (Reported) Scheduled PRN Albuterol Sulfate (Proair Hfa) 8.5 Gm Hfa.aer.ad, 2 PUFF INH Q4H PRN for SHORTNESS OF BREATH, (Reported) Allergies Coded Allergies: No Known Allergies (Unverified , 03/11/20) Kaye Carrasco MD Aug 25, 2021 13:38
--- NOTE | 2021-08-28 12:45 | ECHO ---
ECHOCARDIOGRAM DATE OF PROCEDURE: 08/23/2021 Age: 66 Gender: Male Height: 180 cm Weight: 103 kg REFERRING PHYSICIAN: Dr. Clarence Valladares PATIENT LOCATION: Room 3207 REASON FOR TESTING: Heart failure 2D MEASUREMENTS: IVS 1.1 cm LV 8.5 cm LVPW 1.1 cm LA 4.9 cm Aorta 4.0 cm IVC 2.6 cm DOPPLER MEASUREMENT Peak velocity across the aortic valve 1.7 m/s Peak velocity across the LVOT 0.859 m/s Mitral E 1.1 Mitral A 0.49 with a ratio of 2.3 Maximum tricuspid valve velocity 3.2 m/s 2D COMMENTS: 1. Markedly dilated left ventricle with global hypokinesis and a severely depressed global left ventricular systolic function. The estimated left ventricular systolic ejection fraction is 15%-20%. 2. Mildly dilated left atrium. Normal right atrium and right ventricle. 3. The atrial septum appeared to be normal without evidence of defect or shunt. 4. Dilated aortic root at 4.0 cm. 5. No pericardial effusion seen. 6. Mildly calcified aortic valve with normal leaflet excursion. Mildly calcified mitral annulus with normal anterior mitral valve leaflet motion. Normal tricuspid valve and pulmonic valve. The proximal pulmonary artery branches also appeared to be normal. 7. The inferior vena cava is dilated, central venous pressure is most likely elevated. DOPPLER: It detects trace aortic regurgitation, mild mitral regurgitation, moderate tricuspid regurgitation and mild pulmonic regurgitation. The calculated pulmonary artery systolic pressure varies between 40 to 50 mmHg. There are findings of left ventricular diastolic dysfunction, a restrictive pattern. IMPRESSION: 1. Markedly dilated left ventricle with severe left ventricular systolic dysfunction and global hypokinesis. There are features of left ventricular diastolic dysfunction, a restrictive mitral inflow pattern was noted. 2. Aortic valve sclerosis with trace aortic regurgitation. A mildly dilated aortic root was noted. 3. Mitral annulus calcification with mild mitral regurgitation and a mildly enlarged left atrium. 4. Moderate tricuspid regurgitation with moderate pulmonary hypertension. 5. Mild pulmonic regurgitation. MTDD
== END 2021-08-25 15:53 | disposition home or self-care (01) | DRG 137 ==
LOC: M ED 21:07 → M ED INP 23:41 → M ICU 08-23 02:37 → M 4MAIN 08-23 20:15
PROVIDERS: ADMIT Family Medicine; ATTEND Internal Medicine Nephrology
PROC: 3E0333Z Introduction of Anti-inflammatory into Peripheral Vein, Percutaneous Approach (ICD-10-PCS; principal; 2021-08-22)
PROC: XW033E5 Introduction of Remdesivir Anti-infective into Peripheral Vein, Percutaneous Approach, New Technology Group 5 (ICD-10-PCS; 2021-08-22)
DX: U07.1 COVID-19 (principal); J96.01 Acute respiratory failure with hypoxia; J15.9 Unspecified bacterial pneumonia; 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t disease of native coronary artery without angina pectoris; I48.20 Chronic atrial fibrillation, unspecified; R77.8 Other specified abnormalities of plasma proteins; I50.23 Acute on chronic systolic (congestive) heart failure; J12.82 Pneumonia due to coronavirus disease 2019; Z95.5 Presence of coronary angioplasty implant and graft; Z79.01 Long term (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 a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; Z79.4 Long term (current) use of insulin; Z79.82 Long term (current) use of aspirin; N17.9 Acute kidney failure, unspecified; I44.7 Left bundle-branch block, unspecified; I44.0 Atrioventricular block, first degree; N18.4 Chronic kidney disease, stage 4 (severe); E11.42 Type 2 diabetes mellitus with diabetic polyneuropathy; M10.9 Gout, unspecified; G25.81 Restless legs syndrome